=== PATIENT | male | born 1945 | race Caucasian/White ===

== ENCOUNTER 2016-09-21 20:49 | Inpatient (IN) ==
[2016-09-21] MEDS ORDERED: methylPREDNISolone SOD SUC 125 MG/2 ML VIAL IV STA (21:21)
[2016-09-21] MEDS ORDERED: ALBUTEROL/IPRATROPIUM 3 ML NEB RESP TX STA (21:21)
--- NOTE | 2016-09-21 21:33 | Emergency Department Note ---
IMilton Hilary, am scribing for, and in the presence of, Flor Moore DO 21: 24. IOscar Debra, DO, personally performed the services described in this documentation, ascribed by Zunilda Rose in my presence, and it is both accurate and complete . Arrival - Arrival Chief Complaint: Shortness of Breath Stated Complaint: having problems breathing for weeks/worsened ED Nursing Triage Note: Pt to triage via wheelchair with c/o sob on 4L 02 for 2 weeks. Mode of Arrival: Wheelchair Limitations: No Limitations Source: Patient, RN Notes Reviewed - History of Present Illness HPI Narrative: Pt is a 70 y/o male presenting to the ED with SOB which onset 2 weeks ago. Patients was in the room and states that he will get up from his chair and go to the bathroom, by the time he gets back he is gasping for breath. Patient confirms congestion in his head and High blood pressure this past week but denies Fever, chills, nausea or vomiting. He is on oxygen 02/01 for COPD [facility] No other complaints or problems stated in the ED. Pt has a PMHx of HTN, Aortic Valve DVT, IDDM, Dyslipidemia, and COPD. Onset (ago): week(s) Consistency: constant Allergies/Adverse Reactions: Allergies Allergy/AdvReac Type Severity Reaction Status Date / Time steroid AdvReac Hypertensio Uncoded 09/21/16 20:58 n Home Medications: Home Medications Medication Instructions Recorded Confirmed Type Atorvastatin Calcium [Lipitor] 40 mg PO DAILY 01/05/16 09/21/16 History Hydrocodone/Acetaminophen 1 each PO Q8H PRN 01/05/16 09/21/16 History [Hydrocodon-Acetaminophn 10-325] Hydroxychloroquine Sulfate 200 mg PO QOTHER DAY 01/05/16 09/21/16 History Magnesium Oxide 420 mg PO DAILY 01/05/16 09/21/16 History Methocarbamol Tab [Robaxin Tab] 750 mg PO QID 01/05/16 09/21/16 History Omeprazole [Prilosec] 20 mg PO BID W/MEALS 01/05/16 09/21/16 History Colchicine 0.5 tablet PO QOTHER DAY #0 01/08/16 09/21/16 Rx Allopurinol [Zyloprim] 150 mg PO DAILY #30 mg 02/06/16 09/21/16 Rx Aspirin [Ecotrin] 81 mg PO DAILY #100 tablet.dr 02/06/16 09/21/16 Rx Furosemide Tab [Lasix Tab] 40 mg PO DAILY W/BREAKFAST #30 02/06/16 09/21/16 Rx tablet Metoprolol Tartrate 25 mg PO BID #100 tablet 02/06/16 09/21/16 Rx NIFEdipine [Nifedipine ER] 60 mg PO DAILY #120 tablet.er 02/06/16 09/21/16 Rx Insulin Glargine [Lantus] 100 unit SUBCUT DAILY 09/21/16 09/21/16 History Pregabalin [Lyrica] 150 mg PO DAILY 09/21/16 09/21/16 History Sodium Bicarb Tab 325 mg PO BID 09/21/16 09/21/16 History Review of System - Review of System 12 point system: reviewed and no additional remarkable complaints except as stated - Review of System Constitutional: Absent: chills, fever Respiratory: Present: respiratory distress (SOB), other (Congestion) Cardiovascular: Present: chest pain, dyspnea on exertion Gastrointestinal: Absent: abdominal pain, nausea, vomiting, diarrhea Medical,Surgical,& Family Hx - Medical History Cardio: History of: Hypertension, Cardiovascular Problems (Aortic valve; DVT's) Endocrine: History of: Diabetes Mellitus (IDDM), Dyslipidemia Respiratory: History of: COPD (Home O2 at 2L) Musculoskeletal: History of: Back/Neck Problems - Surgical History HEENT Surgeries: Surgical HX of: Tonsilectomy & Adenoidectomy Orthopedic Surgeries: Surgical HX of;: Total Knee Replacement (BOTH) - Family History Family History: Reports;: Family Diabetes, Family Hypertension Denies;: Family Stroke Comment Only: Family Cancer (mother,colon. brother, prostate) - Social History Smoking Status: Former smoker Frequency of Alcohol Use: None Type of Drug Use: None Exam Vital Signs: Vital Signs Temperature 98.4 F 09/21/16 20:53 Pulse Rate 71 09/21/16 20:53 Respiratory Rate 16 09/21/16 20:53 Blood Pressure 181/109 09/21/16 20:53 O2 Sat by Pulse Oximetry 94 L 09/21/16 20:53 - General General appearance: alert, in no apparent distress - Head Head exam: Present: atraumatic, normocephalic - Eye Eye exam: Present: normal appearance, PERRL, EOMI - ENT ENT exam: Present: mucous membranes moist, TM's normal bilaterally. Absent: mucous membranes dry - Neck Neck exam: Present: full ROM, trachea midline. Absent: tenderness - Chest Chest inspection: Present: symmetric chest wall rise. Absent: tenderness - Respiratory Respiratory exam: Present: wheezes - Cardiovascular Cardiovascular exam: Present: regular rate, normal rhythm, normal heart sounds. Absent: murmur, rubs, gallop - Abdominal Exam Abdominal exam: Present: soft. Absent: distention, tenderness - Extremities Exam Extremities exam: Present: full ROM. Absent: tenderness - Back Exam Back exam: Present: full ROM. Absent: tenderness - Neurological Exam Neurological exam: Present: alert, oriented X3, CN II-XII intact. Absent: motor sensory deficit - Psychiatric Psychiatric exam: Present: normal affect, normal mood - Skin Skin exam: Present: warm, dry, intact, normal color. Absent: rash Course Course Narrative: spoke with DR Pate who agrees to admission Results - Labs CBC & BMP: 09/21/16 21:35 09/21/16 21:35 Lab Results: I have reviewed the patients labs Labs: Laboratory Tests 09/21/16 21:35 WBC 9.3 RBC 3.69 L Hgb 9.7 L Hct 30.2 L MCV 81.8 L MCH 26 L MPV 9.5 L Neut % (Auto) 78.8 H Lymph % (Auto) 10.0 L Lymph # (Auto) 0.9 L Laboratory Tests 09/21/16 09/21/16 21:35 21:35 Sodium 140 Potassium 4.2 Chloride 105 Carbon Dioxide 23 Anion Gap 16.2 H BUN 54 H Creatinine 3.50 H Glucose 160 H Calcium 8.0 L ALT 12 L Alkaline Phosphatase 149 H B-Natriuretic Peptide 408 H - Diagnostic Findings Procedure: Chest x-ray: image reviewed by me (increased congestion) Disposition Clinical Impression: Acute exacerbation of chronic obstructive airways disease, Renal failure Case discussed with: patient Disposition: Still a Patient Condition: Stable Time of Disposition: 23:04
[2016-09-21 21:45] LABS: Basophils # 0.1 10*3/uL (0.0-0.2); Basophils % 0.6 % (0.0-0.8); Eosinophils # 0.3 10*3/uL (0.0-0.87); Eosinophils % 3.3 % (0.00-10.9); Hematocrit 30.2 VOL% (42.0-52.0); Hemoglobin 9.7 GM/DL (14.0-18.0); Immature Granulocytes % 0.8 %; Immature Granulocytes Absolute 0.07 #; Lymphocytes # 0.9 10*3/uL (1.4-4.0); Mean Corpuscular HGB Conc 32.1 GM/DL (32-36); Mean Corpuscular Hemoglobin 26 PG (27-34); Mean Corpuscular Volume 81.8 FL (87-102); Mean Platelet Volume 9.5 FL (9.6-12.0); Monocytes # 0.6 10*3/uL (0.11-0.8); Monocytes % 6.5 % (1.7-12.7); Neutrophils # 7.3 10*3/uL (1.4-7.4); Neutrophils % 78.8 % (38.7-73.9); Platelet Count 176 T/CUMM (130-400); Red Blood Count 3.69 MC/CUMM (3.8-5.5); Red Cell Distribution Width 16.2 % (9.3-17.3); White Blood Count 9.3 T/CUMM (4-12)
[2016-09-21 21:56] LABS: Partial Thromboplastin Time 30.4 SECS (0-40)
[2016-09-21] MEDS ORDERED: methylPREDNISolone SOD SUC 125 MG/2 ML VIAL ONE (21:57)
[2016-09-21 22:18] LABS: Alanine Aminotransferase 12 U/L (16-61); Albumin 3.9 G/DL (3.4-5.0); Alkaline Phosphatase 149 U/L (45-117); Aspartate Amino Transferase 13 U/L (0-37); Blood Urea Nitrogen 54 MG/DL (7-18); Glucose 160 MG/DL (74-106); Osmolality,Calculated 296.4 MOS/KG (273-304); Potassium 4.2 MMOL/L (3.5-5.1); Sodium 140 MMOL/L (136-145); Total Protein 7.4 G/DL (6.4-8.3); Troponin I Only < 0.015 NG/ML (0.00-0.045)
[2016-09-21] MEDS ORDERED: ONDANSETRON 4 MG/2 ML VIAL IV STA (22:53)
[2016-09-21] MEDS ORDERED: HYDROmorphone 2 MG/1 ML VIAL IV STA (22:53)
[2016-09-21] MEDS ORDERED: ONDANSETRON 4 MG/2 ML VIAL ONE (22:56)
[2016-09-21] MEDS ORDERED: HYDROmorphone 2 MG/1 ML VIAL ONE (22:56)
--- NOTE | 2016-09-21 23:04 | XRay Report ---
XR chest 1V portable Indication: Shortness of breath and wheezing. Chest one view: Comparison 02/02/2016. Cardiomegaly is developed with increased pulmonary vascular congestion and diffuse reticulonodular opacification of the lungs. No focal pneumonia. Lung volumes remain relatively low. Impression: CHF decompensation. PROCEDURE INTERPRETED AT [facility] DEPARTMENT OF RADIOLOGY Final Report Signed by: Gelacio Hampton M.D.
[2016-09-22] MEDS ORDERED: GLUCAGON 1 MG VIAL IM PRN (00:26)
[2016-09-22] MEDS ORDERED: MAGNESIUM SULF RIDER 2 GM in PREMIX 1 EACH IV PRN (00:26)
[2016-09-22] MEDS ORDERED: MAGNESIUM SULF RIDER 4 GM in PREMIX 1 EACH IV PRN (00:26)
[2016-09-22] MEDS ORDERED: DEXTROSE 50% 25 GM/50 ML VIAL IV PRN (00:26)
--- NOTE | 2016-09-22 00:51 | Hospitalist History & Physical ---
Assessment and Plan (1) Elevated brain natriuretic peptide (BNP) level Status: Acute Current Visit: Yes (2) Acute exacerbation of chronic obstructive airways disease Status: Acute Current Visit: Yes (3) Renal failure Status: Acute Current Visit: Yes (4) Anemia Status: Acute Current Visit: No (5) Diabetes mellitus Status: Chronic Assessment and plan: Our plan for this patient 1. Admit patient to monitored bed 2. IV diuresis 3. Home meds appropriate 4. Schedule breathing treatments 5. Patient reports a allergy to steroids therefore no steroids will be given to him 6. Consult pulmonary to make sure that his lung status is optimized prior to discharge 7. 2D echo to evaluate heart function Current Visit: No Qualifiers: Diabetes mellitus type: type 2 Diabetes mellitus complication status: with hyperglycemia Diabetes mellitus snf insulin use: with snf use Qualified Code(s): E11.65 - Type 2 diabetes mellitus with hyperglycemia History of Present Illness Chief complaint: Shortness of breath dyspnea on exertion History of present illness: Mr. Acosta is a 70 year old male with past medical history significant for COPD , hypertension, diabetes and chronic kidney disease whose been having increasing dyspnea on exertion for months now. Patient reports is been steadily increasing over the past 2 weeks. Patient denies cough or fever. Patient reports that he has been wearing his O2 at home more. Patient felt like he could not breathe and called the [place] [facility]. Based recommended he come up to our hospital for further evaluation. Patient's reports that his O2 sats were in the 80s this morning and that this is been real disabling to him. He has not had his heart evaluated and he has not seen a traffic line painter except one time at the [facility] in [place]. I was consulted to admit the patient. Home Medications Medication Instructions Recorded Confirmed Type Atorvastatin Calcium [Lipitor] 40 mg PO DAILY 01/05/16 09/21/16 History Hydrocodone/Acetaminophen 1 each PO Q8H PRN 01/05/16 09/21/16 History [Hydrocodon-Acetaminophn 10-325] Hydroxychloroquine Sulfate 200 mg PO QOTHER DAY 01/05/16 09/21/16 History Magnesium Oxide 420 mg PO DAILY 01/05/16 09/21/16 History Methocarbamol Tab [Robaxin Tab] 750 mg PO QID 01/05/16 09/21/16 History Omeprazole [Prilosec] 20 mg PO BID W/MEALS 01/05/16 09/21/16 History Colchicine 0.5 tablet PO QOTHER DAY #0 01/08/16 09/21/16 Rx Allopurinol [Zyloprim] 150 mg PO DAILY #30 mg 02/06/16 09/21/16 Rx Aspirin [Ecotrin] 81 mg PO DAILY #100 tablet. 02/06/16 09/21/16 Rx Furosemide Tab [Lasix Tab] 40 mg PO DAILY W/BREAKFAST #30 02/06/16 09/21/16 Rx tablet Metoprolol Tartrate 25 mg PO BID #100 tablet 02/06/16 09/21/16 Rx NIFEdipine [Nifedipine ER] 60 mg PO DAILY #120 tablet.er 02/06/16 09/21/16 Rx Insulin Glargine [Lantus] 100 unit SUBCUT DAILY 09/21/16 09/21/16 History Pregabalin [Lyrica] 150 mg PO DAILY 09/21/16 09/21/16 History Sodium Bicarb Tab 325 mg PO BID 09/21/16 09/21/16 History Allergies Allergy/AdvReac Type Severity Reaction Status Date / Time steroid AdvReac Hypertensio Uncoded 09/21/16 20:58 n Medical,Surgical,& Family Hx - Medical History Cardio: History of: Hypertension, Cardiovascular Problems (Aortic valve; DVT's) Endocrine: History of: Diabetes Mellitus (IDDM), Dyslipidemia Respiratory: History of: COPD (Home O2 at 2L) Musculoskeletal: History of: Back/Neck Problems - Surgical History HEENT Surgeries: Surgical HX of: Tonsilectomy & Adenoidectomy Orthopedic Surgeries: Surgical HX of;: Total Knee Replacement (BOTH) - Family History Family History: Reports;: Family Diabetes, Family Hypertension Denies;: Family Stroke Comment Only: Family Cancer (mother,colon. brother, prostate) - Social History Smoking Status: Former smoker Frequency of Alcohol Use: None Type of Drug Use: None 12 point system: reviewed and no additional remarkable complaints except as stated Exam - Constitutional Vitals: - General General appearance: alert, in no apparent distress - Head Head exam: Present: atraumatic, normocephalic - Eye Eye exam: Present: normal appearance, PERRL, EOMI - ENT ENT exam: Present: mucous membranes moist, TM's normal bilaterally. Absent: mucous membranes dry - Neck Neck exam: Present: full ROM, trachea midline. - Chest Chest inspection: Present: symmetric chest wall rise. - Respiratory Respiratory exam: Present: wheezes - Cardiovascular Cardiovascular exam: Present: regular rate, normal rhythm, normal heart sounds. Absent: murmur, rubs, gallop - Abdominal Exam Abdominal exam: Present: soft. Absent: distention, tenderness - Extremities Exam Extremities exam: Present: full ROM. Absent: tenderness - Back Exam Back exam: Present: full ROM. Absent: tenderness - Neurological Exam Neurological exam: Present: alert, oriented X3, CN II-XII intact. Absent: motor sensory deficit - Psychiatric Psychiatric exam: Present: normal affect, normal mood - Skin Skin exam: Present: warm, dry, intact, normal color. Absent: rash Results - Labs CBC & BMP: 09/21/16 21:35 09/21/16 21:35
[2016-09-22 04:32] LABS: Basophils # 0.1 10*3/uL (0.0-0.2); Basophils % 0.5 % (0.0-0.8); Eosinophils # 0.4 10*3/uL (0.0-0.87); Eosinophils % 3.2 % (0.00-10.9); Hematocrit 28.1 VOL% (42.0-52.0); Immature Granulocytes % 1.3 %; Immature Granulocytes Absolute 0.14 #; Lymphocytes % 8.9 % (21.2-54.2); Mean Corpuscular Hemoglobin 26 PG (27-34); Monocytes # 0.9 10*3/uL (0.11-0.8); Neutrophils # 8.6 10*3/uL (1.4-7.4); Neutrophils % 78.1 % (38.7-73.9); Platelet Count 174 T/CUMM (130-400); Red Blood Count 3.47 MC/CUMM (3.8-5.5); Red Cell Distribution Width 16.2 % (9.3-17.3)
[2016-09-22 05:11] LABS: Osmolality,Calculated 291.5 MOS/KG (273-304); Potassium 4.5 MMOL/L (3.5-5.1)
[2016-09-22] MEDS: ALBUTEROL/IPRATROPIUM 3 ML NEB RESP TX SCH ×4 (05:28→21:06)
[2016-09-22] MEDS: INSULIN REGULAR 100 UNIT/ML SUBCUT SCH ×4 (08:40→21:16)
[2016-09-22] MEDS: FUROSEMIDE 40 MG/4 ML VIAL IV SCH ×2 (09:21→16:52)
[2016-09-22] MEDS: SODIUM BICARBONATE 650 MG TABLET PO SCH ×2 (09:22→21:17)
[2016-09-22] MEDS: PREGABALIN 75 MG CAPSULE PO SCH (09:22)
[2016-09-22] MEDS: ASPIRIN EC 81 MG TABLET PO SCH (09:22)
[2016-09-22] MEDS: ENOXAPARIN 30 MG/0.3 ML SYRINGE SUBCUT SCH (09:22)
[2016-09-22] MEDS: ALLOPURINOL 300 MG TABLET PO SCH (09:22)
[2016-09-22] MEDS: METHOCARBAMOL 750 MG TABLET PO SCH ×4 (09:23→21:17)
[2016-09-22] MEDS: HYDROXYCHLOROQUINE 200 MG TABLET PO SCH (09:23)
[2016-09-22] MEDS: COLCHICINE 0.6 MG TABLET PO SCH (09:23)
[2016-09-22] MEDS: MAGNESIUM OXIDE 400 MG TABLET PO SCH (09:24)
[2016-09-22] MEDS: METOPROLOL TARTRATE 25 MG TABLET PO SCH ×2 (09:24→21:16)
[2016-09-22] MEDS: ATORVASTATIN 40 MG TABLET PO SCH (09:24)
[2016-09-22] MEDS: PANTOPRAZOLE 40 MG TABLET PO SCH ×2 (09:24→16:52)
--- NOTE | 2016-09-22 10:28 | XRay Report ---
Referring Physician: Blair Brizuela Exam: XR chest 1V portable Date: September 22, 2016 at 10:04 AM Reason: Congestive heart failure Comparison: Chest one view portable September 21, 2016 Findings: The cardiac silhouette is again enlarged, and the patient status post sternotomy. There are scattered reticulonodular opacities within both lungs. This is concerning for pulmonary edema, but pneumonia is not excluded. No pneumothorax is identified. No acute osseous process is seen. Impression: There has been no significant change. PROCEDURE INTERPRETED AT [facility] DEPARTMENT OF RADIOLOGY Final Report Signed by: Dr. Malia Moreno
--- NOTE | 2016-09-22 11:57 | Pulmonology Consult Note ---
History of Present Illness Chief complaint: Acute exacerbation of COPD. Congestive heart failure. History of present illness: Santosh Courtney, ANP-BC, GNP-BC, acting as scribe for Dr. Blair Brizuela Mr. Acosta is a 70 year old white male who we've been asked to see in pulmonary consultation for evaluation and management. The request for consultation was made by Dr. Pate. He states he is followed at the [facility]. This patient presented to [facility] on 09/21/16 with complaints of shortness of breath. He was evaluated in the ER and found to have acute congestive heart failure and an acute exacerbation of COPD. He was subsequently admitted for further evaluation and care. He was seen along with his today. He states that he has had worsening shortness of breath for several months, but acutely worsened yesterday. She denies cardiac angina "except for when I can't breathe". He denies dysphagia. He has occasional reflux, but never into his throat. There has been no bleeding from any site. No change in bowel or bladder habits. No TIA symptoms or syncope. All other systems were reviewed and were negative. Allergies: "Steroids" Home medications: See list Past medical history: COPD. Diabetes mellitus with a history of DKA. Atrial fibrillation. History of PE. History of DVT. HTN. History of tobacco abuse. History of pulmonary edema. Dyslipidemia. Chronic renal failure. Back/neck pain. Gout. Surgical history: Aortic valve replacement in 2012. Left and right total knee replacements. Tonsillectomy and adenoidectomy. Family history: Positive for heart disease, HTN, diabetes mellitus, colon cancer (mother), and prostate cancer (brother) CXR. Done 09/21/16. My impression. Acute CHF. Laboratory: White count 11,000 with 78.1% segs, 8.9% lymphs, and 8.0% monos; H& H 9.0/28.1 with decreased indices and increased RDW; PLT count 174,000; creatinine 3.40, BUN 51, NA+ 139, K+ 4.5; Alk Phos 149, transaminases are normal ; cardiac enzymes are normal; BNP 451 Home Medications Medication Instructions Recorded Confirmed Type Atorvastatin Calcium [Lipitor] 40 mg PO DAILY 01/05/16 09/21/16 History Hydrocodone/Acetaminophen 1 each PO Q8H PRN 01/05/16 09/21/16 History [Hydrocodon-Acetaminophn 10-325] Hydroxychloroquine Sulfate 200 mg PO QOTHER DAY 01/05/16 09/21/16 History Magnesium Oxide 420 mg PO DAILY 01/05/16 09/21/16 History Methocarbamol Tab [Robaxin Tab] 750 mg PO QID 01/05/16 09/21/16 History Omeprazole [Prilosec] 20 mg PO BID W/MEALS 01/05/16 09/21/16 History Colchicine 0.5 tablet PO QOTHER DAY #0 01/08/16 09/21/16 Rx Allopurinol [Zyloprim] 150 mg PO DAILY #30 mg 02/06/16 09/21/16 Rx Aspirin [Ecotrin] 81 mg PO DAILY #100 tablet.dr 02/06/16 09/21/16 Rx Furosemide Tab [Lasix Tab] 40 mg PO DAILY W/BREAKFAST #30 02/06/16 09/21/16 Rx tablet Metoprolol Tartrate 25 mg PO BID #100 tablet 02/06/16 09/21/16 Rx NIFEdipine [Nifedipine ER] 60 mg PO DAILY #120 tablet.er 02/06/16 09/21/16 Rx Insulin Glargine [Lantus] 100 unit SUBCUT DAILY 09/21/16 09/21/16 History Pregabalin [Lyrica] 150 mg PO DAILY 09/21/16 09/21/16 History Sodium Bicarb Tab 325 mg PO BID 09/21/16 09/21/16 History Allergies Allergy/AdvReac Type Severity Reaction Status Date / Time steroid AdvReac Hypertensio Uncoded 09/21/16 20:58 n Exam (Pulmonay) H&P - Constitutional Vitals: Period Temp Pulse Resp BP Sys/Maloney Pulse Ox Last 24 Hr 97.3 F-97.6 F 67-77 18-22 149-186/72-92 88-96 Exam: Psych: Oriented x 3 HEENT: Pupils, irises, sclera, conjunctiva, and eyelids are normal. The face is symmetrical without rash or masses. Lips, tongue, buccal mucosa, soft and hard palates, and pharynx are WNL Neck: Symmetrical. Thyroid was not palpated. Lymphatics: No submandibular, cervical, or supraclavicular adenopathy Chest: Symmetrical with rales bilateral bases; no appreciable wheeze CV: Irregularly irregular; lateral PMI Arterial: Carotids with a fair upstroke. There is no bruit. Upper extremity pulses are palpable. Lower extremity pulses are non-palpable, but I see no evidence of ischemia Venous: Exam of the neck, upper, and lower extremities is normal Abd: Obese, but no organomegaly, masses, tenderness, or bruit; Bowel sounds are positive x 4; The aorta was not palpated /Rectal: Deferred Extremities: No clubbing, cyanosis, significant edema, or obvious DVT; bilateral JENNYFER hose are in use Skin: No cancerous or infectious lesions of the exposed, examined skin; the perineal area was not examined M/S: No gross abnormalities of the normal curvature of the cervical, thoracic, and lumbar spine Neurological: Cranial nerves are intact with mild decreased hearing acuity bilaterally, Long tract motor function is intact; Sensory exam was not done; gait was not tested. The remainder of the exam was noncontributory. Impression: #1: Acute congestive heart failure #2: Acute exacerbation of COPD #3: Chronic renal failure #4: History of aortic stenosis now S/P AVR; done 2012 #5: History of gout #6: History of DVT #7: History of PE #8: Dyslipidemia #9: History of back/neck pain #10: Diabetes mellitus with history of DKA #11: See past history Plan: #1: Agree with diuretics #2: Sputum for gram stain, culture and sensitivity. Note, the patient denies a productive cough. #3: Agree with echocardiogram #4: Daily BNP, BMP/Mg+ #5: CXR in the morning #6: See orders We appreciate this consult and will follow along with you. Medical,Surgical,& Family Hx - Medical History Cardio: History of: Hypertension, Cardiovascular Problems (Aortic valve; DVT's) Endocrine: History of: Diabetes Mellitus (IDDM), Dyslipidemia Respiratory: History of: COPD (Home O2 at 2L) Musculoskeletal: History of: Back/Neck Problems - Surgical History Neurologic Surgeries: Patient denies: Neurologic Surgery HEENT Surgeries: Surgical HX of: Tonsilectomy & Adenoidectomy Orthopedic Surgeries: Surgical HX of;: Total Knee Replacement (BOTH) - Family History Family History: Reports;: Family Diabetes, Family Hypertension Denies;: Family Stroke Comment Only: Family Cancer (mother,colon. brother, prostate) - Social History Smoking Status: Former smoker Frequency of Alcohol Use: None Type of Drug Use: None Results - Labs CBC & BMP: 09/22/16 04:03 09/22/16 04:03
--- NOTE | 2016-09-22 17:22 | ECHO Report ---
Gustabo Acosta Exam Date: 09/22/2016 10:30 Referring Physician: Technologist: Hollie Cabrera Age: 70 Ht (in): 72 Wt (lb): 276 Gender: M Exam Location: [facility] Echo Indications: SOB, COPD, Renal failure, elevated BNP BP: 149 / 72 HR: 69 Rhythm: Sinus Technical Quality: Fair IMPRESSIONS EF60 %,septal hypokinesis. Grade II/IV diastolic dysfunction, moderately elevated filling pressures. Mildly increased right ventricular size. Moderately increased right atrial size. Moderately increased left atrial size. Mildly thickened mitral valve. Mitral annular calcification. Trace mitral valve regurgitation. Aortic valve sclerosis. Trace aortic valve regurgitation. Severe tricuspid valve regurgitation. [id number] mmHg. Trace pulmonary valve regurgitation. No pericardial effusion. Normal size aortic root and proximal ascending aorta. MEASUREMENTS (Male / Female) Normal Values 2D ECHO LV Diastolic Diameter PLAX 4.2 cm 4.2 - 5.9 / 3.9 - 5.3 cm LV Systolic Diameter PLAX 2.3 cm LV Fractional Shortening PLAX 44.5 % IVS Diastolic Thickness 1.6 cm 0.6 - 1.0 / 0.6 - 0.9 cm LVPW Diastolic Thickness 1.2 cm 0.6 - 1.0 / 0.6 - 0.9 cm Aortic Root Diameter 2.5 cm LA Systolic Diameter LX 5.0 cm 3.0 - 4.0 / 2.7 - 3.8 cm DOPPLER TR Peak Velocity 436.0 cm/s TR Peak Gradient 76.0 mmHg FINDINGS Left Ventricle .EF60 %,septal hypokinesis. Grade II/IV diastolic dysfunction, moderately elevated filling pressures. Right Ventricle Mildly increased right ventricular size. Right Atrium Moderately increased right atrial size. Left Atrium Moderately increased left atrial size. Mitral Valve Mildly thickened mitral valve. Mitral annular calcification. Trace mitral valve regurgitation. Aortic Valve Aortic valve sclerosis. Trace aortic valve regurgitation. Tricuspid Valve Morphologically normal tricuspid valve. Severe tricuspid valve regurgitation. BQZ66-00 mmHg. Pulmonic Valve Pulmonic valve not well visualized. Trace pulmonary valve regurgitation. Pericardium No pericardial effusion. Aorta Normal size aortic root and proximal ascending aorta. Latrell Esparza (Electronically Signed) Final Date: 22 September 2016 17:21
[2016-09-23] MEDS: ALBUTEROL/IPRATROPIUM 3 ML NEB RESP TX SCH ×4 (02:03→19:10)
[2016-09-23 06:38] LABS: Basophils # 0.1 10*3/uL (0.0-0.2); Basophils % 0.6 % (0.0-0.8); Eosinophils # 0.3 10*3/uL (0.0-0.87); Eosinophils % 3.4 % (0.00-10.9); Hematocrit 27.9 VOL% (42.0-52.0); Hemoglobin 9.2 GM/DL (14.0-18.0); Immature Granulocytes % 0.6 %; Immature Granulocytes Absolute 0.05 #; Lymphocytes # 0.7 10*3/uL (1.4-4.0); Lymphocytes % 7.9 % (21.2-54.2); Mean Corpuscular Hemoglobin 26 PG (27-34); Mean Corpuscular Volume 80.2 FL (87-102); Mean Platelet Volume 9.4 FL (9.6-12.0); Monocytes # 0.7 10*3/uL (0.11-0.8); Monocytes % 7.5 % (1.7-12.7); Neutrophils # 7.2 10*3/uL (1.4-7.4); Platelet Count 171 T/CUMM (130-400); Red Blood Count 3.48 MC/CUMM (3.8-5.5); Red Cell Distribution Width 16.1 % (9.3-17.3)
[2016-09-23 07:16] LABS: Free T4 (Free Thyroxine) 0.79 NG/DL (0.76-1.46); Thyroid Stimulating Hormone 1.93 uIU/ml (0.358-3.74)
[2016-09-23 07:33] LABS: Calcium 8.2 MG/DL (8.5-10.1); Magnesium 1.8 MG/DL (1.8-2.4); Osmolality,Calculated 292.5 MOS/KG (273-304); Potassium 4.7 MMOL/L (3.5-5.1)
[2016-09-23] MEDS: MAGNESIUM OXIDE 400 MG TABLET PO SCH (08:31)
[2016-09-23] MEDS: METOPROLOL TARTRATE 25 MG TABLET PO SCH ×2 (08:31→21:15)
[2016-09-23] MEDS: METHOCARBAMOL 750 MG TABLET PO SCH ×4 (08:31→21:15)
[2016-09-23] MEDS: ASPIRIN EC 81 MG TABLET PO SCH (08:32)
[2016-09-23] MEDS: PREGABALIN 75 MG CAPSULE PO SCH (08:32)
[2016-09-23] MEDS: SODIUM BICARBONATE 650 MG TABLET PO SCH ×2 (08:32→21:15)
[2016-09-23] MEDS: PANTOPRAZOLE 40 MG TABLET PO SCH ×2 (08:32→15:31)
[2016-09-23] MEDS: ATORVASTATIN 40 MG TABLET PO SCH ×2 (08:32→21:15)
[2016-09-23] MEDS: ALLOPURINOL 300 MG TABLET PO SCH (08:33)
[2016-09-23] MEDS: FUROSEMIDE 40 MG/4 ML VIAL IV SCH ×2 (08:33→15:31)
[2016-09-23] MEDS: ENOXAPARIN 30 MG/0.3 ML SYRINGE SUBCUT SCH (08:33)
[2016-09-23] MEDS: INSULIN REGULAR 100 UNIT/ML SUBCUT SCH ×4 (09:20→21:16)
--- NOTE | 2016-09-23 10:53 | EKG Report ---
Stationary ECG Study [facility] Test Date: 09/23/2016 9:33:13 AM Pat Name: MALAIKA DRAKE Department: Room: 295 Gender: M Automatic [employer] Winder: : [id number] Requested by: Yolis Costello Order Number: [id number] Reading MD: KRISSY ZELAYA Intervals [place] Rate: 67 P: -7 MA: 231 QRS: -63 QRSD: 117 T: 64 QT: 450 QTc: 465 Interpretive Statements SINUS WITH PACS LEFT AXIS DEVIATION NONSPECIFIC INTERVENTRICULAR CONDUCTION DELAY Electronically Signed On 09-23-16 17:58:30 CDT by KRISSY ZELAYA [email or web address]
--- NOTE | 2016-09-23 11:10 | Pulmonology Progress Note ---
Pulmonary - PN: Subj Interval history: This is a 70-year-old white male whom I saw in pulmonary consultation on 2016. [facility]. He was admitted here with shortness of breath and chest pain. My impressions were #1: Acute congestive heart failure #2: Acute exacerbation of COPD #3: Chronic renal failure #4: History of aortic stenosis now S/P AVR; done 2012 #5: History of gout #6: History of DVT #7: History of PE #8: Dyslipidemia #9: History of back/neck pain #10: Diabetes mellitus with history of DKA #11: See past history 09/23/2016. This patient's chest x-ray showed acute congestive heart failure with increased interstitial markings in all 5 lung manzo and central vascular congestion. Today's chest x-ray is much better. Patient is not sure whether not he is breathing better but she is not a particularly forthcoming historian. He is however having some chest pain today. His EKG shows sinus rhythm with a second-degree AV block, Mobitz type II. There is a left anterior hemiblock. I see no acute changes. Cardiology will see him shortly. Electrolytes are normal. Creatinine is stable but elevated at 3.2 with a BUN of 48. Patient is chronically anemia with an H&H of 9.2/27.9. White count is 9000 with 80 segs 8 lymphs and 7-1/2 monocytes. Natruretic peptide is fallen from 408-291. Thyroid function tests are normal. Echocardiogram shows ejection fraction of 60 % with septal hypokinesis and grade 2/6 diastolic dysfunction and moderately elevated filling pressures. There is a trace of mitral regurgitation. There is a trace of aortic valve regurgitation. Note the patient had an aortic valve repair 2012. Pulmonary artery pressures are elevated 65-70 mmHg with severe tricuspid regurgitation. Right atrium is moderately increased in size and the right ventricle is mildly increased in size. This patient was not on anticoagulation admission. There was a history of pulmonary emboli. I am going to check Doppler venograms of the lower extremities. If there is any doubt about pulmonary emboli we should proceed with a ventilation perfusion lung scan. Patient has renal failure and cannot be evaluated with contrast patient is on nifedipine XL 60 which should help with his pulmonary hypertension. Physical exam. Vital signs. See below Psychiatric oriented 3 not a forthcoming historian. The family member was present. Neurologic. Cranial nerves are intact. Long track motor functions intact Face. Symmetrical. Lips and tongue are normal. Neck. Symmetrical. No meningismus Chest is fairly clear. There was mild chest wall tenderness but this did not reproduce to pain that the patient complained of Abdomen. Obese. Nondistended. Positive bowel sounds Lower extremities. No obvious deep venous thrombophlebitis. The remainder the exam was noncontributory. Plan: #1: Agree with diuretics #2: Sputum for gram stain, culture and sensitivity. Note, the patient denies a productive cough. #3: Agree with echocardiogram #4: Daily BNP, BMP/Mg+ #5: 09/23/2016. CXR in the morning #6: See orders 7. 09/23/2016. Doppler venograms of the lower extremities. Look for deep venous thrombophlebitis. Once out of congestive heart failure depending on the findings we may want to do a ventilation/perfusion lung scan. Exam (Progress Note) - Constitutional Vitals: Period Temp Pulse Resp BP Sys/Maloney Pulse Ox Last 24 Hr 96.8 F-97.8 F 65-75 16-20 115-173/63-81 2-99 Results - Labs CBC & BMP: 09/23/16 06:29 09/23/16 06:29
--- NOTE | 2016-09-23 12:41 | Cardiology Consult Note ---
Addendum entered and electronically signed by Eryn Zendejas NP 09/23/16 12: 53: Avoiding CANDY-Inhibitos for fear of worsening renal failure. Original Note: <Eryn Zendejas - Last Filed: 09/23/16 12:19> Assessment and Plan - Time spent with patient Time spent with patient: Greater than 30 minutes (1) CKD (chronic kidney disease) Status: Chronic Assessment and plan: SEE PLAN OF CARE LISTED BELOW Current Visit: Yes Qualifiers: Chronic kidney disease stage: stage 4 (severe) Qualified Code(s): N18.4 - Chronic kidney disease, stage 4 (severe) (2) Status post aortic valve replacement with bioprosthetic valve Status: Chronic Assessment and plan: SEE PLAN OF CARE LISTED BELOW Current Visit: Yes (3) Dyslipidemia Status: Chronic Assessment and plan: SEE PLAN OF CARE LISTED BELOW Current Visit: Yes (4) Diabetes Status: Chronic Assessment and plan: SEE PLAN OF CARE LISTED BELOW Current Visit: Yes (5) Sleep disorder Status: Chronic Assessment and plan: SEE PLAN OF CARE LISTED BELOW Current Visit: Yes (6) Obesity Status: Chronic Assessment and plan: SEE PLAN OF CARE LISTED BELOW Current Visit: Yes (7) Chronic obstructive pulmonary disease Status: Chronic Assessment and plan: SEE PLAN OF CARE LISTED BELOW Current Visit: No (8) Diabetes mellitus Status: Chronic Assessment and plan: SEE PLAN OF CARE LISTED BELOW Current Visit: No Qualifiers: Diabetes mellitus type: type 2 Diabetes mellitus complication status: with hyperglycemia Diabetes mellitus mcfp insulin use: with mcfp use Qualified Code(s): E11.65 - Type 2 diabetes mellitus with hyperglycemia (9) Hypertension Status: Chronic Assessment and plan: SEE PLAN OF CARE LISTED BELOW Current Visit: No (10) Anemia Status: Acute Current Visit: No (11) Renal insufficiency Status: Chronic Assessment and plan: SEE PLAN OF CARE LISTED BELOW Current Visit: No (12) Anemia Status: Chronic Assessment and plan: SEE PLAN OF CARE LISTED BELOW Current Visit: No History of Present Illness - Data of Consult Patient: known to practice within the last 3 years Consult date: 09/23/16 Requesting Physician: Gelacio Pate - Consult Narrative Reason for consult: SOB, CHF, chest pain History of present illness: CONTROL SYSTEMS DEVELOPER: DR. SARAY MARIE PCP: [facility]. DR. RADHA KRISHNAMURTHY Mr. Acosta is a 70 year old male followed by Dr. Marie. Risk factors include : Hypertension, dyslipidemia, diabetes, obesity, sedentary lifestyle, tobaccoism (stopped smoking 3 packs per day 1999). History of aortic valve replacement (tissue valve) [address] Magaña. At that time, he underwent cardiac catheterization which revealed no obstructive coronary artery disease. History atrial fibrillation (no longer taking Eliquis due to cost), known COPD, chronic renal insufficiency. Suspected sleep apnea. Patient presented to the emergency department September 22, 2016 with complaints of worsening shortness of breath over the past month. He identified room to room dyspnea on exertion causing rest. 2-3 pillow orthopnea, chronic. He acknowledges he had been swelling in his lower extremities at that time. He does not weigh himself daily at home. Since being hospitalized, his breathing has improved. He is no longer as short of breath with the exertion. He does have chronic orthopnea. He also has chronic chest wall pain. This morning, I was alerted to the patient having chest pain. Upon evaluation, his chest pain is located in the left chest wall area it is reproducible to light palpation. He does not have active chest pain with exertion. Troponin negative. EKG stable without acute ischemia. Echocardiogram September 23, 2016 reveals the following: EF 60%, septal hypokinesis , grade 2 diastolic dysfunction, severe TR with a pulmonary arterial pressure of 65-70 mmHg. Creatinine today 3.2 (down from 3.5). Hemoglobin 9.2 and hematocrit 27.9. These are stable. To his knowledge he has never had GI bleed or other occult blood loss. Patient does have chronic renal insufficiency. He does not see a apiculturist and we will assist with a consultation. In the past, he tells me his VA coverage did not allow for referrals to others outside the [facility] but now these benefits of change. He has never been formally seen by a apiculturist. We will also consult sleep medicine to see him Monday if he is still here. If not, we will refer him for an outpatient sleep evaluation. ASSESSMENT/PLAN: 1. ACUTE ON CHRONIC CHF SECONDARY TO DIASTOLIC DYSFUNCTION (EF 60%), NYHA CLASS III -strict I&O and daily weights. Currently receiving 40 mg IV Lasix twice daily. May consider increasing to 80 mg twice daily with close monitoring of his creatinine. 2. S/P AVR (TISSUE VALVE) 2012 -continue current plan of care 3. HYPERTENSION -tolerating beta blockade. May consider changing metoprolol to Bystolic and evaluate his shortness of breath. 4. DYSLIPIDEMIA -continue lipid-lowering agent 5. DIABETES -continue diabetes treatment with sliding scale insulin 6. CRI, STAGE IV -consult nephrology 7. OBESITY -discussed the merits of weight loss 8. SLEEP DISORDER -will consult sleep medicine if he is here on Monday. If not, will make an outpatient referral 9. ATRIAL FIBRILLATION - patient has a history of atrial fibrillation. He is anemic. He was on Eliquis in the past but quit taking due to cost. Will add sotalol 80 mg twice daily as he has had paroxysms of normal sinus rhythm. 10. ANEMIA -anemic studies 11. REMOTE TOBACCOISM -quit smoking in 1999. 12. COPD -appreciate pulmonary's help CC: Yolis Costello MD - Home Medications and Allergies Home Medications: Home Medications Medication Instructions Recorded Confirmed Type Atorvastatin Calcium [Lipitor] 40 mg PO DAILY 01/05/16 09/21/16 History Hydrocodone/Acetaminophen 1 each PO Q8H PRN 01/05/16 09/21/16 History [Hydrocodon-Acetaminophn 10-325] Hydroxychloroquine Sulfate 200 mg PO QOTHER DAY 01/05/16 09/21/16 History Magnesium Oxide 420 mg PO DAILY 01/05/16 09/21/16 History Methocarbamol Tab [Robaxin Tab] 750 mg PO QID 01/05/16 09/21/16 History Omeprazole [Prilosec] 20 mg PO BID W/MEALS 01/05/16 09/21/16 History Colchicine 0.5 tablet PO QOTHER DAY #0 01/08/16 09/21/16 Rx Allopurinol [Zyloprim] 150 mg PO DAILY #30 mg 02/06/16 09/21/16 Rx Aspirin [Ecotrin] 81 mg PO DAILY #100 tablet. 02/06/16 09/21/16 Rx Furosemide Tab [Lasix Tab] 40 mg PO DAILY W/BREAKFAST #30 02/06/16 09/21/16 Rx tablet Metoprolol Tartrate 25 mg PO BID #100 tablet 02/06/16 09/21/16 Rx NIFEdipine [Nifedipine ER] 60 mg PO DAILY #120 tablet.er 02/06/16 09/21/16 Rx Insulin Glargine [Lantus] 100 unit SUBCUT DAILY 09/21/16 09/21/16 History Pregabalin [Lyrica] 150 mg PO DAILY 09/21/16 09/21/16 History Sodium Bicarb Tab 325 mg PO BID 09/21/16 09/21/16 History Allergies/Adverse Reactions: Allergies Allergy/AdvReac Type Severity Reaction Status Date / Time steroid AdvReac Hypertensio Uncoded 09/21/16 20:58 n 12 point system: reviewed and no additional remarkable complaints except as stated Review of systems: REVIEW OF SYSTEMS: - Constitutional Constitutional: Present: Fatigue. Snoring loudly. Holding his breath while sleeping. Air hunger. Absent: syncope, anorexia, night sweats - EENT Eyes: Absent: blurry vision, loss of vision, diplopia Ears: Absent: decreased hearing, ear pain, ear discharge - Cardiovascular Cardiovascular: Present: chest pain with palpation to left chest. Dyspnea on exertion and at rest. Orthopnea. Denies palpitations. Frequent lower extremity swelling. - Respiratory Respiratory: Present: HALE and at rest. Absent: wheezing, hemoptysis, change in phlegm color - Gastrointestinal Gastrointestinal: Denies: constipation. Absent: abdominal pain, hematemesis, hematochezia, melena, change in bowel habits, nausea - Genitourinary Genitourinary: Reports he still makes a lot of urine absent: difficulty urinating, dysuria, urinary hesitancy, flank pain - Musculoskeletal Musculoskeletal: Present: back pain Absent: joint swelling, muscle cramps, muscle weakness - Neurological Neurological: Present: normal gait without frequent falls. Absent: dizziness, hemiparesis - Psychiatric Psychiatric: Absent: anxiety, depression, difficulty concentrating - Endocrine Endocrine: Present: fatigue. Absent: cold intolerance, heat intolerance, polyuria, polyphagia, polydipsia - Hematologic/Lymphatic Hematologic/Lymphatic: Present: easy bruising. Absent: easy bleeding -Integumentary Integumentary: Absent: lesions, rashes, skin breakdown Medical,Surgical,& Family Hx - Medical History Cardio: History of: Cardiac Dysrhythmia, Hypertension, Cardiovascular Problems ( Aortic valve; DVT's) No history of: CAD, MD Endocrine: History of: Diabetes Mellitus (IDDM), Dyslipidemia Respiratory: History of: COPD (Home O2 at 2L) Musculoskeletal: History of: Back/Neck Problems - Surgical History Neurologic Surgeries: Patient denies: Neurologic Surgery HEENT Surgeries: Surgical HX of: Tonsilectomy & Adenoidectomy Orthopedic Surgeries: Surgical HX of;: Total Knee Replacement (BOTH) - Family History Family History: Reports;: Family Diabetes, Family Hypertension Denies;: Family Stroke Comment Only: Family Cancer (mother,colon. brother, prostate) - Social History Smoking Status: Former smoker Have you smoked in the last 12 months: No Frequency of Alcohol Use: None Type of Drug Use: None Marital Status: Lives With:: Spouse Functional capacity: independent ambulation Physical Examination Vital Signs Temp Pulse Resp BP Pulse Ox 98.4 F 71 16 181/109 94 L 09/21/16 20:53 09/21/16 20:53 09/21/16 20:53 09/21/16 20:53 09/21/16 20:53 General: [Appears well with no apparent distress.] [Pleasant and cooperative. ] [Appears comfortable.] HEENT: [PERRL, normocephalic, atraumatic. Mucous membranes moist. No jaundice noted. Conjunctiva moist and clear, sclerae anicteric] Malampati Airway Class II-III. Neck: Difficult to assess for JVD due to habitus. No thyromegaly or lymphadenopathy noted. No carotid bruit appreciated Cardiac: [Regular rate and rhythm.] [No obvious murmur rub or gallop.] Lungs: [Inspiratory crackles noted posteriorly in the bases. Oxygen in use via nasal cannula Abdomen: Soft, bowel sounds normoactive. Nontender and nondistended. No abdominal bruit or thrill noted. No masses noted. Musculoskeletal: No fluid collection. Decreased range of motion is noted. Extremities: No clubbing, cyanosis noted. [ No edema noted.] Upper extremity pulses 2+. Lower extremity pulses 2+. Capillary refill less than 3 seconds. Skin: No unusual lesions or rashes. No skin breakdown appreciated. Neuro: Awake, alert and oriented 3. Moves all extremities well without hemiparesis or paralysis. No essential tremor is appreciated. Result/EKG - Labs CBC & BMP: 09/23/16 06:29 09/23/16 06:29 Lab Results: I have reviewed the past 24 hour labs Labs: Laboratory Results - last 24 hr 09/22/16 09/22/16 09/23/16 15:53 19:44 06:29 WBC RBC Hgb Hct MCV MCH MCHC RDW Plt Count MPV Neut % (Auto) Lymph % (Auto) Hernando % (Auto) Eos % (Auto) Baso % (Auto) Neut # (Auto) Lymph # (Auto) Hernando # (Auto) Eos # (Auto) Baso # (Auto) Immature Gran % Nucleated RBC % Immature Gran # Nucleated RBCs # Sodium 139 Potassium 4.7 Chloride 104 Carbon Dioxide 25 Anion Gap 14.7 BUN 48 H Creatinine 3.20 H GFR Calculation 27 BUN/Creatinine Ratio 15.00 Glucose 149 H POC Glucose 158 H 199 H Hemoglobin A1c Calculated Osmolality 292.5 Calcium 8.2 L Magnesium 1.8 B-Natriuretic Peptide Free T4 TSH 3rd Generation 09/23/16 09/23/16 09/23/16 06:29 06:29 06:29 WBC 9.0 RBC 3.48 L Hgb 9.2 L Hct 27.9 L MCV 80.2 L MCH 26 L MCHC 33.0 RDW 16.1 Plt Count 171 MPV 9.4 L Neut % (Auto) 80.0 H Lymph % (Auto) 7.9 L Hernando % (Auto) 7.5 Eos % (Auto) 3.4 Baso % (Auto) 0.6 Neut # (Auto) 7.2 Lymph # (Auto) 0.7 L Hernando # (Auto) 0.7 Eos # (Auto) 0.3 Baso # (Auto) 0.1 Immature Gran % 0.6 Nucleated RBC % 0.0 Immature Gran # 0.05 Nucleated RBCs # 0.00 Sodium Potassium Chloride Carbon Dioxide Anion Gap BUN Creatinine GFR Calculation BUN/Creatinine Ratio Glucose POC Glucose Hemoglobin A1c Calculated Osmolality Calcium Magnesium B-Natriuretic Peptide 291 H Free T4 0.79 TSH 3rd Generation 1.930 09/23/16 09/23/16 09/23/16 06:29 07:53 11:41 WBC RBC Hgb Hct MCV MCH MCHC RDW Plt Count MPV Neut % (Auto) Lymph % (Auto) Hernando % (Auto) Eos % (Auto) Baso % (Auto) Neut # (Auto) Lymph # (Auto) Hernando # (Auto) Eos # (Auto) Baso # (Auto) Immature Gran % Nucleated RBC % Immature Gran # Nucleated RBCs # Sodium Potassium Chloride Carbon Dioxide Anion Gap BUN Creatinine GFR Calculation BUN/Creatinine Ratio Glucose POC Glucose 167 H 200 H Hemoglobin A1c 7.9 H Calculated Osmolality Calcium Magnesium B-Natriuretic Peptide Free T4 TSH 3rd Generation - Diagnostic Findings Procedure: Chest x-ray: report reviewed by me, Ultrasound: report reviewed by me (Echocardiogram) - EKG EKG results: interpreted by me EKG shows: sinus rhythm (With paroxysms of atrial fibrillar) <Tony Esparza - Last Filed: 09/23/16 15:29> History of Present Illness - Consult Narrative History of present illness: Cardiology addendum Patient examined and chart reviewed. nurse Kathrine present for the full discussion Chronic dyspnea and easy fatigability for years which has gotten progressively worse over the last 6 months. Patient is followed at the [place]. He is on home O2 for the past year. 6 feet tall approximately 280 pounds. He snores a lot and has restless legs and daytime sleepiness. Sleep apnea strongly suspected. Patient has chronic renal failure. Creatinine 3.5 at admission September 21. Longtime diabetic with poor control. Currently taking Lantus insulin 100 units at bedtime. Hemoglobin A1c level 7.9. Status post bioprosthetic aortic valve replacement for aortic stenosis by Dr. Magaña March 2013. Cardiac cath at the time showed mild CAD only and preserved ventricular function. Chronic hypertension Paroxysmal atrial fibrillation. The patient has been on Coumadin in the past but it was stopped at the [facility] because of noncompliance and difficulty keeping the PT therapeutic. Patient is back in atrial fibrillation. Chest x-ray shows automated with CHF. BNP level 296. Plan IV amiodarone Echo Doppler pending Renal consult with Dr. Spaulding We will consult Dr. Ca for sleep study evaluation. CC: Yolis Costello MD Physical Examination Vital Signs Temp Pulse Resp BP Pulse Ox 98.4 F 71 16 181/109 94 L 09/21/16 20:53 09/21/16 20:53 09/21/16 20:53 09/21/16 20:53 09/21/16 20:53 Result/EKG - Labs CBC & BMP: 09/23/16 13:13 09/23/16 06:29 Labs: Laboratory Results - last 24 hr 09/22/16 09/22/16 09/23/16 15:53 19:44 06:29 WBC RBC Hgb Hct MCV MCH MCHC RDW Plt Count MPV Neut % (Auto) Lymph % (Auto) Hernando % (Auto) Eos % (Auto) Baso % (Auto) Neut # (Auto) Lymph # (Auto) Hernando # (Auto) Eos # (Auto) Baso # (Auto) Immature Gran % Nucleated RBC % Immature Gran # Nucleated RBCs # ESR Westergren Absolute Retic Percent Retic Retic Hgb Equivalent Sodium 139 Potassium 4.7 Chloride 104 Carbon Dioxide 25 Anion Gap 14.7 BUN 48 H Creatinine 3.20 H GFR Calculation 27 BUN/Creatinine Ratio 15.00 Glucose 149 H POC Glucose 158 H 199 H Hemoglobin A1c Calculated Osmolality 292.5 Calcium 8.2 L Magnesium 1.8 Ferritin B-Natriuretic Peptide Vitamin B12 Folate Free T4 TSH 3rd Generation JOSE MANUEL (IgG-AHG) JOSE MANUEL, Polyspecific 09/23/16 09/23/16 09/23/16 06:29 06:29 06:29 WBC 9.0 RBC 3.48 L Hgb 9.2 L Hct 27.9 L MCV 80.2 L MCH 26 L MCHC 33.0 RDW 16.1 Plt Count 171 MPV 9.4 L Neut % (Auto) 80.0 H Lymph % (Auto) 7.9 L Hernando % (Auto) 7.5 Eos % (Auto) 3.4 Baso % (Auto) 0.6 Neut # (Auto) 7.2 Lymph # (Auto) 0.7 L Hernando # (Auto) 0.7 Eos # (Auto) 0.3 Baso # (Auto) 0.1 Immature Gran % 0.6 Nucleated RBC % 0.0 Immature Gran # 0.05 Nucleated RBCs # 0.00 ESR Westergren Absolute Retic Percent Retic Retic Hgb Equivalent Sodium Potassium Chloride Carbon Dioxide Anion Gap BUN Creatinine GFR Calculation BUN/Creatinine Ratio Glucose POC Glucose Hemoglobin A1c Calculated Osmolality Calcium Magnesium Ferritin B-Natriuretic Peptide 291 H Vitamin B12 Folate Free T4 0.79 TSH 3rd Generation 1.930 JOSE MANUEL (IgG-AHG) JOSE MANUEL, Polyspecific 09/23/16 09/23/16 09/23/16 06:29 07:53 11:41 WBC RBC Hgb Hct MCV MCH MCHC RDW Plt Count MPV Neut % (Auto) Lymph % (Auto) Hernando % (Auto) Eos % (Auto) Baso % (Auto) Neut # (Auto) Lymph # (Auto) Hernando # (Auto) Eos # (Auto) Baso # (Auto) Immature Gran % Nucleated RBC % Immature Gran # Nucleated RBCs # ESR Westergren Absolute Retic Percent Retic Retic Hgb Equivalent Sodium Potassium Chloride Carbon Dioxide Anion Gap BUN Creatinine GFR Calculation BUN/Creatinine Ratio Glucose POC Glucose 167 H 200 H Hemoglobin A1c 7.9 H Calculated Osmolality Calcium Magnesium Ferritin B-Natriuretic Peptide Vitamin B12 Folate Free T4 TSH 3rd Generation JOSE MANUEL (IgG-AHG) JOSE MANUEL, Polyspecific 09/23/16 09/23/16 09/23/16 13:13 13:13 13:13 WBC 10.1 RBC 3.61 L Hgb 9.5 L Hct 30.4 L MCV 84.2 L MCH 26 L MCHC 31.3 L RDW 16.0 Plt Count 193 MPV 10.0 Neut % (Auto) 80.4 H Lymph % (Auto) 7.7 L Hernando % (Auto) 7.1 Eos % (Auto) 3.4 Baso % (Auto) 0.7 Neut # (Auto) 8.1 H Lymph # (Auto) 0.8 L Hernando # (Auto) 0.7 Eos # (Auto) 0.3 Baso # (Auto) 0.1 Immature Gran % 0.7 Nucleated RBC % 0.0 Immature Gran # 0.07 Nucleated RBCs # 0.00 ESR Westergren 96 H Absolute Retic 0.1 Percent Retic 3.0 H Retic Hgb Equivalent 25.9 L Sodium Potassium Chloride Carbon Dioxide Anion Gap BUN Creatinine GFR Calculation BUN/Creatinine Ratio Glucose POC Glucose Hemoglobin A1c Calculated Osmolality Calcium Magnesium Ferritin 272.4 B-Natriuretic Peptide Vitamin B12 383 Folate 6.3 Free T4 TSH 3rd Generation JOSE MANUEL (IgG-AHG) JOSE MANUEL, Polyspecific 09/23/16 13:13 WBC RBC Hgb Hct MCV MCH MCHC RDW Plt Count MPV Neut % (Auto) Lymph % (Auto) Hernando % (Auto) Eos % (Auto) Baso % (Auto) Neut # (Auto) Lymph # (Auto) Hernando # (Auto) Eos # (Auto) Baso # (Auto) Immature Gran % Nucleated RBC % Immature Gran # Nucleated RBCs # ESR Westergren Absolute Retic Percent Retic Retic Hgb Equivalent Sodium Potassium Chloride Carbon Dioxide Anion Gap BUN Creatinine GFR Calculation BUN/Creatinine Ratio Glucose POC Glucose Hemoglobin A1c Calculated Osmolality Calcium Magnesium Ferritin B-Natriuretic Peptide Vitamin B12 Folate Free T4 TSH 3rd Generation JOSE MANUEL (IgG-AHG) Negative JOSE MANUEL, Polyspecific Negative
[2016-09-23] MEDS ORDERED: SOTALOL 80 MG TABLET PO SCH (13:00)
[2016-09-23 13:38] LABS: Basophils # 0.1 10*3/uL (0.0-0.2); Basophils % 0.7 % (0.0-0.8); Eosinophils # 0.3 10*3/uL (0.0-0.87); Eosinophils % 3.4 % (0.00-10.9); Hematocrit 30.4 VOL% (42.0-52.0); Hemoglobin 9.5 GM/DL (14.0-18.0); Immature Granulocytes % 0.7 %; Immature Granulocytes Absolute 0.07 #; Lymphocytes # 0.8 10*3/uL (1.4-4.0); Lymphocytes % 7.7 % (21.2-54.2); Mean Corpuscular HGB Conc 31.3 GM/DL (32-36); Mean Corpuscular Hemoglobin 26 PG (27-34); Mean Corpuscular Volume 84.2 FL (87-102); Monocytes # 0.7 10*3/uL (0.11-0.8); Monocytes % 7.1 % (1.7-12.7); Neutrophils # 8.1 10*3/uL (1.4-7.4); Neutrophils % 80.4 % (38.7-73.9); Platelet Count 193 T/CUMM (130-400); Red Blood Count 3.61 MC/CUMM (3.8-5.5); White Blood Count 10.1 T/CUMM (4-12)
--- NOTE | 2016-09-23 13:56 | Hospitalist Progress Note ---
Assessment and Plan (1) Chronic obstructive pulmonary disease Status: Chronic Current Visit: No (2) Diabetes mellitus Status: Chronic Current Visit: No Qualifiers: Diabetes mellitus type: type 2 Diabetes mellitus complication status: with hyperglycemia Diabetes mellitus adjunct faculty for medical terminology insulin use: with senior care use Qualified Code(s): E11.65 - Type 2 diabetes mellitus with hyperglycemia (3) Hypertension Status: Chronic Current Visit: No (4) CKD (chronic kidney disease) Status: Chronic Current Visit: Yes Qualifiers: Chronic kidney disease stage: stage 4 (severe) Qualified Code(s): N18.4 - Chronic kidney disease, stage 4 (severe) Hospitalist: Subjective Interval history: Patient with reported episode of chest pain as well as second degree heart block overnight, cardiology was consulted. Lasix increased. Pulmonary following for COPD exacerbation. Patient has a history of CKD, nephrology has been consulted. Starting basal insulin today. Exam - Constitutional Vitals: Period Temp Pulse Resp BP Sys/Maloney Pulse Ox Last 24 Hr 96.8 F-97.8 F 65-84 16-20 115-143/63-81 2-99 General appearance: over weight - Head Head exam: Present: normocephalic, atraumatic - Eye Eye exam: Present: EOMI Pupils: Present: TAMIA - ENT ENT exam: Present: normal exam - Neck Neck exam: Present: normal inspection - Respiratory Respiratory exam: Present: clear to auscultation bilaterally. Absent: rhonchi, wheezes - Cardiovascular Cardiovascular exam: Present: regular rate and rhythm - GI/Abdominal GI/Abdominal exam: Present: normal bowel sounds, soft. Absent: tenderness, rebound - Extremities Exam Extremities exam: Present: normal inspection - Back Exam Back exam: Present: normal inspection - Neurological Exam Neurological exam: Present: alert, oriented X3 - Psychiatric Psychiatric exam: Present: normal affect, normal mood - Skin Skin exam: Present: warm, intact Results - Labs CBC & BMP: 09/23/16 13:13 09/23/16 06:29
[2016-09-23 14:17] LABS: Folate 6.3 NG/ML (5.4-24.0); Vitamin B12 383 PG/ML (211-911)
[2016-09-23 14:38] LABS: Sedimentation Rate-Westergren 96 MM/HR (0-20)
--- NOTE | 2016-09-23 14:39 | Ultrasound Report ---
Exam: Bilateral lower extremity venous Doppler ultrasound Comparison: 05/15/2014 Clinical history: Shortness of breath, leg swelling Technique: Duplex scan of the lower extremity veins using B-mode/grayscale scaled imaging and Doppler spectral analysis and color flow. Findings: Major venous structures of the lower extremities demonstrate a normal course and caliber. Normal color-flow study and spectral analysis. There is normal compression and augmentation of bilateral common femoral, superficial femoral and popliteal veins. The proximal bilateral greater saphenous veins appear to be patent. Impression: No evidence to suggest deep venous thrombosis within either lower extremity. Ultrasound images were captured and stored. PROCEDURE INTERPRETED AT [facility] DEPARTMENT OF RADIOLOGY Final Report Signed by: Dr. Brittany Vincent
--- NOTE | 2016-09-23 14:39 | Ultrasound Report ---
US renal Bilateral Indication: Chronic kidney disease. RENAL ULTRASOUND: Comparison 01/07/2016. Grayscale and color Doppler imaging the kidneys performed. Right kidney measures 100 x 45 x 43 mm. Left kidney measures 100 x 52 x 50 mm. No hydronephrosis, mass, cyst or calcification identified on either side. Color Doppler flow at both renal radu documented. Impression: Negative ultrasound the kidneys. PROCEDURE INTERPRETED AT [facility] DEPARTMENT OF RADIOLOGY Final Report Signed by: Gelacio Hampton M.D.
[2016-09-23] MEDS: INSULIN NPH 100 UNIT/ML SUBCUT SCH ×2 (14:44→21:16)
--- NOTE | 2016-09-23 14:46 | XRay Report ---
XR chest 1V portable Indication: CHF. Chest one view: Comparison 09/22/2016 shows continued reticular nodular interstitial prominence in both lungs diffusely, pulmonary hypoinflation, cardiomegaly and postoperative changes median sternotomy. No new infiltrates are identified. Right lung base is slightly better aerated than previous. Impression: Minimally improved aeration right lung base. Continued CHF. PROCEDURE INTERPRETED AT [facility] DEPARTMENT OF RADIOLOGY Final Report Signed by: Gelacio Hampton M.D.
[2016-09-23] MEDS ORDERED: AMIODARONE INJ 150 MG in DEXTROSE 5% 100 ML IV ONE (15:13)
[2016-09-23] MEDS ORDERED: AMIODARONE INJ 450 MG in DEXTROSE 5% 241 ML IV SCH (16:00)
--- NOTE | 2016-09-23 16:16 | Nephrology Consult Note ---
History of Present Illness Chief complaint: CRF History of present illness: Patient does have chronic renal insufficiency. He does not see a construction craft laborer and we will assist with a consultation. In the past, he tells me his [facility] coverage did not allow for referrals to others outside the [facility] but now these benefits of change. He has never been formally seen by a construction craft laborer. We will also consult sleep medicine to see him Monday if he is still here. If not, we will refer him for an outpatient sleep evaluation. Mr. Acosta is a 70 year old male admitted with shortness of breath. He currently denies orthopnea but states he mainly has shortness of breath with exertion. He is being treated for CHF and COPD exacerbation. He has pulmonary hypertension and diabetes. He has chronic renal failure. He has been followed by the [facility]. He currently denies dysuria hematuria or obstructive symptoms. Home Medications Medication Instructions Recorded Confirmed Type Atorvastatin Calcium [Lipitor] 40 mg PO DAILY 01/05/16 09/21/16 History Hydrocodone/Acetaminophen 1 each PO Q8H PRN 01/05/16 09/21/16 History [Hydrocodon-Acetaminophn 10-325] Hydroxychloroquine Sulfate 200 mg PO QOTHER DAY 01/05/16 09/21/16 History Magnesium Oxide 420 mg PO DAILY 01/05/16 09/21/16 History Methocarbamol Tab [Robaxin Tab] 750 mg PO QID 01/05/16 09/21/16 History Omeprazole [Prilosec] 20 mg PO BID W/MEALS 01/05/16 09/21/16 History Colchicine 0.5 tablet PO QOTHER DAY #0 01/08/16 09/21/16 Rx Allopurinol [Zyloprim] 150 mg PO DAILY #30 mg 02/06/16 09/21/16 Rx Aspirin [Ecotrin] 81 mg PO DAILY #100 tablet. 02/06/16 09/21/16 Rx Furosemide Tab [Lasix Tab] 40 mg PO DAILY W/BREAKFAST #30 02/06/16 09/21/16 Rx tablet Metoprolol Tartrate 25 mg PO BID #100 tablet 02/06/16 09/21/16 Rx NIFEdipine [Nifedipine ER] 60 mg PO DAILY #120 tablet.er 02/06/16 09/21/16 Rx Insulin Glargine [Lantus] 100 unit SUBCUT DAILY 09/21/16 09/21/16 History Pregabalin [Lyrica] 150 mg PO DAILY 09/21/16 09/21/16 History Sodium Bicarb Tab 325 mg PO BID 09/21/16 09/21/16 History Allergies Allergy/AdvReac Type Severity Reaction Status Date / Time steroid AdvReac Hypertensio Uncoded 09/21/16 20:58 n Medical,Surgical,& Family Hx - Medical History Cardio: History of: Cardiac Dysrhythmia, Hypertension, Cardiovascular Problems ( Aortic valve; DVT's) No history of: CAD, MS Endocrine: History of: Diabetes Mellitus (IDDM), Dyslipidemia Respiratory: History of: COPD (Home O2 at 2L) Musculoskeletal: History of: Back/Neck Problems - Surgical History Neurologic Surgeries: Patient denies: Neurologic Surgery HEENT Surgeries: Surgical HX of: Tonsilectomy & Adenoidectomy Orthopedic Surgeries: Surgical HX of;: Total Knee Replacement (BOTH) - Family History Family History: Reports;: Family Diabetes, Family Hypertension Denies;: Family Stroke Comment Only: Family Cancer (mother,colon. brother, prostate) - Social History Smoking Status: Former smoker Frequency of Alcohol Use: None Type of Drug Use: None Review of Systems 12 point system: reviewed and no additional remarkable complaints except as stated Exam - Vital Signs Vital signs: Period Temp Pulse Resp BP Sys/Maloney Pulse Ox Last 24 Hr 97.2 F-97.8 F 65-84 16-20 114-143/60-81 90-99 Exam: Gen.: Alert and oriented x3. ENT: Pupils equal round reactive to light. EOMs intact. Mucous membranes moist. Neck: Supple. No JVD or bruit. Cardiovascular: Regular rate and rhythm. No murmur rub or gallop Lungs: Clear Abdomen: Soft. Nontender. Positive bowel sounds. No organomegaly Extremities: No edema Results - Labs CBC & BMP: 09/23/16 13:13 09/23/16 06:29 Assessment and Plan (1) Chronic kidney disease, stage IV (severe) Status: Acute Assessment and plan: 70-year-old man admitted with: * CRF stage IV. Records indicate he has been followed at the [facility] but has not seen nephrology. Creatinine has been between 3 and 4 over the past year. Renal ultrasound shows no anatomic abnormalities. UA is pending. He is on no nephrotoxic medications currently. Renal function should be monitored on IV diuretics * Diastolic CHF. Normal ejection fraction * Pulmonary hypertension * Prosthetic aortic valve * Diabetes mellitus * COPD * Hypertension * Anemia Current Visit: Yes (2) Diastolic CHF Status: Acute Current Visit: Yes (3) Acute exacerbation of chronic obstructive airways disease Status: Acute Current Visit: Yes (4) Status post aortic valve replacement with bioprosthetic valve Status: Chronic Current Visit: Yes (5) Anemia Status: Chronic Current Visit: No (6) Chronic obstructive pulmonary disease Status: Chronic Current Visit: No (7) Diabetes mellitus Status: Chronic Current Visit: No Qualifiers: Diabetes mellitus type: type 2 Diabetes mellitus complication status: with hyperglycemia Diabetes mellitus correction insulin use: with correction use Qualified Code(s): E11.65 - Type 2 diabetes mellitus with hyperglycemia (8) Hypertension Status: Chronic Current Visit: No
[2016-09-23 18:14] LABS: Apearance,Urine CLEAR (Clear); Bilirubin,Urine Negative (Negative); Blood, Urine Small mg/dL (Negative); Glucose,Urine (UA) Negative (Negative); Hyaline Casts,Urine 1 /LPF (0-3); Ketones,Urine Negative (Negative); Mucus,Urine Occasional /LPF (Occasional); Nitrite,Urine Negative (Negative); Protein,Urine 100 MG/DL; RBC,Urine 1 /HPF (0-4); Urine Color Yellow (Yellow); Urine Specific Gravity 1.012 (1.001-1.035); Urine Urobilinogen < 2.0 EU/DL (0.2-1.0); WBC,Urine <1 /HPF (0-6)
[2016-09-24] MEDS: AMIODARONE INJ 450 MG in DEXTROSE 5% 241 ML IV SCH ×3 (00:18→17:20)
[2016-09-24] MEDS: ALBUTEROL/IPRATROPIUM 3 ML NEB RESP TX SCH ×5 (00:24→23:59)
[2016-09-24 04:43] LABS: Basophils # 0.1 10*3/uL (0.0-0.2); Basophils % 0.6 % (0.0-0.8); Eosinophils # 0.4 10*3/uL (0.0-0.87); Eosinophils % 4.3 % (0.00-10.9); Hematocrit 28.3 VOL% (42.0-52.0); Hemoglobin 9.2 GM/DL (14.0-18.0); Immature Granulocytes % 0.5 %; Immature Granulocytes Absolute 0.05 #; Lymphocytes # 0.9 10*3/uL (1.4-4.0); Lymphocytes % 9.2 % (21.2-54.2); Mean Corpuscular HGB Conc 32.5 GM/DL (32-36); Mean Corpuscular Hemoglobin 26 PG (27-34); Mean Corpuscular Volume 79.7 FL (87-102); Mean Platelet Volume 9.6 FL (9.6-12.0); Monocytes # 0.7 10*3/uL (0.11-0.8); Monocytes % 7.5 % (1.7-12.7); Neutrophils # 7.6 10*3/uL (1.4-7.4); Neutrophils % 77.9 % (38.7-73.9); Platelet Count 178 T/CUMM (130-400); Red Blood Count 3.55 MC/CUMM (3.8-5.5); White Blood Count 9.8 T/CUMM (4-12)
[2016-09-24 05:11] LABS: Potassium 4.7 MMOL/L (3.5-5.1)
[2016-09-24] MEDS: INSULIN REGULAR 100 UNIT/ML SUBCUT SCH ×4 (09:00→21:23)
[2016-09-24] MEDS: FUROSEMIDE 40 MG/4 ML VIAL IV SCH ×2 (09:00→17:15)
[2016-09-24] MEDS: INSULIN NPH 100 UNIT/ML SUBCUT SCH ×2 (09:01→21:23)
[2016-09-24] MEDS: ALLOPURINOL 300 MG TABLET PO SCH (09:04)
[2016-09-24] MEDS: COLCHICINE 0.6 MG TABLET PO SCH (09:05)
[2016-09-24] MEDS: SODIUM BICARBONATE 650 MG TABLET PO SCH ×2 (09:05→21:22)
[2016-09-24] MEDS: MAGNESIUM OXIDE 400 MG TABLET PO SCH (09:06)
[2016-09-24] MEDS: ASPIRIN EC 81 MG TABLET PO SCH (09:06)
[2016-09-24] MEDS: PREGABALIN 75 MG CAPSULE PO SCH (09:06)
[2016-09-24] MEDS: METHOCARBAMOL 750 MG TABLET PO SCH ×4 (09:06→21:22)
[2016-09-24] MEDS: HYDROXYCHLOROQUINE 200 MG TABLET PO SCH (09:06)
[2016-09-24] MEDS: ENOXAPARIN 30 MG/0.3 ML SYRINGE SUBCUT SCH (09:07)
[2016-09-24] MEDS: PANTOPRAZOLE 40 MG TABLET PO SCH ×2 (09:07→17:20)
[2016-09-24] MEDS: METOPROLOL TARTRATE 25 MG TABLET PO SCH ×2 (09:07→21:23)
--- NOTE | 2016-09-24 09:07 | XRay Report ---
XR chest 2V Date: 09/24/2016 4:00 AM History: CHF/shortness of breath Comparison: 09/23/2016 Technique: PA and lateral chest Findings: The heart is minimally enlarged with prior median sternotomy and cardiac valve replacement. The lungs are hyperexpanded with chronic scarring. Additional diffuse parenchymal findings are noted with ill-defined densities. Stable mediastinum with degenerative changes. Impression: Status post median sternotomy with cardiac valve replacement. COPD with chronic scarring. Residual mild CHF with ill-defined indeterminate densities and follow-up chest x-ray is recommended. PROCEDURE INTERPRETED AT [facility] DEPARTMENT OF RADIOLOGY Final Report Signed by: Dr. Brittany Vnicent
--- NOTE | 2016-09-24 09:07 | EKG Report ---
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
--- NOTE | 2016-09-24 11:26 | Cardiology Progress Note ---
Cardiology - PN: Subj Interval history: Cardiology note 70-year-old man with progressive exertional dyspnea and easy fatigability. Also had recurrent atrial fibrillation that converted chemically with IV amiodarone. Telemetry shows sinus rhythm in the 70s. O2 sat is 95% on 3 L. Regular rhythm soft systolic murmur as before. No AI. Decreased breath sounds few rhonchi in the right base Trace leg edema Echo Doppler shows ejection fraction of 60% with grade 2 diastolic dysfunction, moderate dilated left atrium, dilated right ventricle, normally functioning aortic valve prosthesis with no AI, and severe TR PA pressure 65-70 Impression Progressive dyspnea multifactorial Chronic hypertension Paroxysmal atrial fibrillation CHF Status post bioprosthetic aVR March 2013. Cath at that time showed mild CAD Chronic renal failure creatinine 3.5 Obstructive sleep apnea suspected Obesity Plan Continue IV amiodarone BMP in a.m. Appreciate Dr. Spaulding's help Dr. Ca to see Monday Exam (Progress Note) - Constitutional Vitals: Period Temp Pulse Resp BP Sys/Maloney Pulse Ox Last 24 Hr 96.1 F-98.1 F 59-84 18-25 106-165/41-76 90-99 Result/EKG - Labs CBC & BMP: 09/24/16 04:19 09/24/16 04:19 Labs: Laboratory Results - last 24 hr 09/23/16 09/23/16 09/23/16 11:41 13:13 13:13 WBC 10.1 RBC 3.61 L Hgb 9.5 L Hct 30.4 L MCV 84.2 L MCH 26 L MCHC 31.3 L RDW 16.0 Plt Count 193 MPV 10.0 Neut % (Auto) 80.4 H Lymph % (Auto) 7.7 L [place] % (Auto) 7.1 Eos % (Auto) 3.4 Baso % (Auto) 0.7 Neut # (Auto) 8.1 H Lymph # (Auto) 0.8 L [place] # (Auto) 0.7 Eos # (Auto) 0.3 Baso # (Auto) 0.1 Immature Gran % 0.7 Nucleated RBC % 0.0 Immature Gran # 0.07 Nucleated RBCs # 0.00 ESR Westergren 96 H Absolute Retic 0.1 Percent Retic 3.0 H Retic Hgb Equivalent 25.9 L Sodium Potassium Chloride Carbon Dioxide Anion Gap BUN Creatinine GFR Calculation BUN/Creatinine Ratio Glucose POC Glucose 200 H Calculated Osmolality Calcium Magnesium Ferritin 272.4 B-Natriuretic Peptide Vitamin B12 Folate Urine Color Urine Appearance Urine pH Ur Specific [place] Urine Protein Urine Glucose (UA) Urine Ketones Urine Blood Urine Nitrate Urine Bilirubin Urine Urobilinogen Urine Leukocytes Urine RBC Urine WBC Hyaline Casts Urine Mucus Ur Culture Indicated? JOSE MANUEL (IgG-AHG) JOSE MANUEL, Polyspecific 09/23/16 09/23/16 09/23/16 13:13 13:13 14:56 WBC RBC Hgb Hct MCV MCH MCHC RDW Plt Count MPV Neut % (Auto) Lymph % (Auto) [place] % (Auto) Eos % (Auto) Baso % (Auto) Neut # (Auto) Lymph # (Auto) [place] # (Auto) Eos # (Auto) Baso # (Auto) Immature Gran % Nucleated RBC % Immature Gran # Nucleated RBCs # ESR [place]gren Absolute Retic Percent Retic Retic Hgb Equivalent Sodium Potassium Chloride Carbon Dioxide Anion Gap BUN Creatinine GFR Calculation BUN/Creatinine Ratio Glucose POC Glucose Calculated Osmolality Calcium Magnesium Ferritin B-Natriuretic Peptide Vitamin B12 383 Folate 6.3 Urine Color Yellow Urine Appearance Clear Urine pH 5.0 Ur Specific [place] 1.012 Urine Protein 100 Urine Glucose (UA) Negative Urine Ketones Negative Urine Blood Small Urine Nitrate Negative Urine Bilirubin Negative Urine Urobilinogen < 2.0 H Urine Leukocytes Negative Urine RBC 1 Urine WBC <1 Hyaline Casts 1 Urine Mucus Occasional Ur Culture Indicated? Not indicated JOSE MANUEL (IgG-AHG) Negative JOSE MANUEL, Polyspecific Negative 09/23/16 09/23/16 09/24/16 15:29 18:26 04:18 WBC RBC Hgb Hct MCV MCH MCHC RDW Plt Count MPV Neut % (Auto) Lymph % (Auto) [place] % (Auto) Eos % (Auto) Baso % (Auto) Neut # (Auto) Lymph # (Auto) [place] # (Auto) Eos # (Auto) Baso # (Auto) Immature Gran % Nucleated RBC % Immature Gran # Nucleated RBCs # ESR [place]gren Absolute Retic Percent Retic Retic Hgb Equivalent Sodium Potassium Chloride Carbon Dioxide Anion Gap BUN Creatinine GFR Calculation BUN/Creatinine Ratio Glucose POC Glucose 184 H 176 H Calculated Osmolality Calcium Magnesium Ferritin B-Natriuretic Peptide 266 H Vitamin B12 Folate Urine Color Urine Appearance Urine pH Ur Specific [place] Urine Protein Urine Glucose (UA) Urine Ketones Urine Blood Urine Nitrate Urine Bilirubin Urine Urobilinogen Urine Leukocytes Urine RBC Urine WBC Hyaline Casts Urine Mucus Ur Culture Indicated? JOSE MANUEL (IgG-AHG) JOSE MANUEL, Polyspecific 09/24/16 09/24/16 04:19 04:19 WBC 9.8 RBC 3.55 L Hgb 9.2 L Hct 28.3 L MCV 79.7 L MCH 26 L MCHC 32.5 RDW 16.0 Plt Count 178 MPV 9.6 Neut % (Auto) 77.9 H Lymph % (Auto) 9.2 L [place] % (Auto) 7.5 Eos % (Auto) 4.3 Baso % (Auto) 0.6 Neut # (Auto) 7.6 H Lymph # (Auto) 0.9 L [place] # (Auto) 0.7 Eos # (Auto) 0.4 Baso # (Auto) 0.1 Immature Gran % 0.5 Nucleated RBC % 0.0 Immature Gran # 0.05 Nucleated RBCs # 0.00 ESR Westergren Absolute Retic Percent Retic Retic Hgb Equivalent Sodium 136 Potassium 4.7 Chloride 101 Carbon Dioxide 26 Anion Gap 13.7 BUN 56 H Creatinine 3.70 H GFR Calculation 22 BUN/Creatinine Ratio 15.00 Glucose 158 H POC Glucose Calculated Osmolality 290.0 Calcium 8.0 L Magnesium 2.0 Ferritin B-Natriuretic Peptide Vitamin B12 Folate Urine Color Urine Appearance Urine pH Ur Specific [place] Urine Protein Urine Glucose (UA) Urine Ketones Urine Blood Urine Nitrate Urine Bilirubin Urine Urobilinogen Urine Leukocytes Urine RBC Urine WBC Hyaline Casts Urine Mucus Ur Culture Indicated? JOSE MANUEL (IgG-AHG) JOSE MANUEL, Polyspecific
--- NOTE | 2016-09-24 12:45 | Hospitalist Progress Note ---
Assessment and Plan - Time spent with patient Time spent with patient: Less than 30 minutes (1) Chronic obstructive pulmonary disease Status: Chronic Current Visit: No (2) MEGAN (acute kidney injury) Status: Resolved Current Visit: No (3) Hypertension Status: Chronic Current Visit: No (4) Acute exacerbation of chronic obstructive airways disease Status: Acute Current Visit: Yes (5) Chronic kidney disease, stage IV (severe) Status: Acute Current Visit: Yes Hospitalist: Subjective Interval history: pt seen doing well remains on amio infusion appreciate cards input otherwise no issues overnight Exam - Constitutional Vitals: Period Temp Pulse Resp BP Sys/Maloney Pulse Ox Last 24 Hr 96.1 F-98.1 F 59-80 18-25 106-165/41-73 90-99 General appearance: no acute distress, over weight - Head Head exam: Present: normal inspection, normocephalic - Eye Eye exam: Present: EOMI Pupils: Present: TAMIA - ENT ENT exam: Present: normal exam - Neck Neck exam: Present: normal inspection - Respiratory Respiratory exam: Present: clear to auscultation bilaterally - Cardiovascular Cardiovascular exam: Present: regular rate and rhythm. Absent: irregular rhythm , JVD - GI/Abdominal GI/Abdominal exam: Present: normal bowel sounds - Extremities Exam Extremities exam: Present: normal inspection - Back Exam Back exam: Present: normal inspection. Absent: CVA tenderness (L), CVA tenderness (R) - Neurological Exam Neurological exam: Present: alert, oriented X3 - Psychiatric Psychiatric exam: Present: normal affect, normal mood - Skin Skin exam: Present: normal color Results - Labs CBC & BMP: 09/24/16 04:19 09/24/16 04:19 Lab Results: I have reviewed the past 24 hour labs
--- NOTE | 2016-09-24 14:47 | Nephrology Progress Note ---
Nephrology - PN: Subj Interval history: Shortness of breath has improved since yesterday. No new symptoms Exam (PN)-Nephrology - Vital Signs Vital signs: Period Temp Pulse Resp BP Sys/Maloney Pulse Ox Last 24 Hr 96.1 F-98.1 F 59-80 18-25 106-165/41-81 90-99 Exam: ENT: Normal Cardiovascular: Regular rate and rhythm. No murmur rub or gallop Lungs: Clear Extremities: No edema - Lab 09/24/16 04:19 09/24/16 04:19 Most recent lab results Calcium 8.0 MG/DL (8.5-10.1) L 09/24/16 04:19 Magnesium 2.0 MG/DL (1.8-2.4) 09/24/16 04:19 Assessment and Plan (1) Chronic kidney disease, stage IV (severe) Status: Acute Assessment and plan: 70-year-old man admitted with: * CRF stage IV. Creatinine slightly higher. This is due to diuresis * Diastolic CHF. Normal ejection fraction * Pulmonary hypertension * Prosthetic aortic valve * Diabetes mellitus * COPD * Hypertension * Anemia Current Visit: Yes (2) Diastolic CHF Status: Acute Current Visit: Yes (3) Acute exacerbation of chronic obstructive airways disease Status: Acute Current Visit: Yes (4) Status post aortic valve replacement with bioprosthetic valve Status: Chronic Current Visit: Yes (5) Anemia Status: Chronic Current Visit: No (6) Chronic obstructive pulmonary disease Status: Chronic Current Visit: No (7) Diabetes mellitus Status: Chronic Current Visit: No Qualifiers: Diabetes mellitus type: type 2 Diabetes mellitus complication status: with hyperglycemia Diabetes mellitus [facility] insulin use: with [facility] use Qualified Code(s): E11.65 - Type 2 diabetes mellitus with hyperglycemia (8) Hypertension Status: Chronic Current Visit: No
[2016-09-24] MEDS: ATORVASTATIN 40 MG TABLET PO SCH (21:22)
[2016-09-24] MEDS: AMIODARONE 200 MG TABLET PO SCH (21:23)
[2016-09-25 05:43] LABS: Basophils # 0.1 10*3/uL (0.0-0.2); Basophils % 0.7 % (0.0-0.8); Eosinophils # 0.5 10*3/uL (0.0-0.87); Hematocrit 28.8 VOL% (42.0-52.0); Hemoglobin 9.3 GM/DL (14.0-18.0); Immature Granulocytes % 0.6 %; Immature Granulocytes Absolute 0.06 #; Lymphocytes % 10.5 % (21.2-54.2); Mean Corpuscular HGB Conc 32.3 GM/DL (32-36); Mean Corpuscular Hemoglobin 26 PG (27-34); Mean Platelet Volume 10.1 FL (9.6-12.0); Monocytes # 0.8 10*3/uL (0.11-0.8); Monocytes % 8.3 % (1.7-12.7); Neutrophils # 7.4 10*3/uL (1.4-7.4); Neutrophils % 74.9 % (38.7-73.9); Platelet Count 184 T/CUMM (130-400); Red Cell Distribution Width 15.9 % (9.3-17.3); White Blood Count 9.9 T/CUMM (4-12)
[2016-09-25 06:09] LABS: Calcium 8.5 MG/DL (8.5-10.1); Magnesium 2.1 MG/DL (1.8-2.4); Osmolality,Calculated 287.2 MOS/KG (273-304); Potassium 4.8 MMOL/L (3.5-5.1)
[2016-09-25] MEDS: ALBUTEROL/IPRATROPIUM 3 ML NEB RESP TX SCH ×3 (07:03→19:49)
[2016-09-25] MEDS: INSULIN NPH 100 UNIT/ML SUBCUT SCH ×2 (08:47→21:22)
[2016-09-25] MEDS: ENOXAPARIN 30 MG/0.3 ML SYRINGE SUBCUT SCH (08:48)
[2016-09-25] MEDS: FUROSEMIDE 40 MG/4 ML VIAL IV SCH (08:48)
[2016-09-25] MEDS: SODIUM BICARBONATE 650 MG TABLET PO SCH ×2 (08:48→21:25)
[2016-09-25] MEDS: ALLOPURINOL 300 MG TABLET PO SCH (08:48)
[2016-09-25] MEDS: METHOCARBAMOL 750 MG TABLET PO SCH ×4 (08:48→21:25)
[2016-09-25] MEDS: PREGABALIN 75 MG CAPSULE PO SCH (08:49)
[2016-09-25] MEDS: ASPIRIN EC 81 MG TABLET PO SCH (08:49)
[2016-09-25] MEDS: METOPROLOL TARTRATE 25 MG TABLET PO SCH ×2 (08:49→21:25)
[2016-09-25] MEDS: MAGNESIUM OXIDE 400 MG TABLET PO SCH (08:49)
[2016-09-25] MEDS: AMIODARONE 200 MG TABLET PO SCH ×2 (08:49→21:25)
[2016-09-25] MEDS: PANTOPRAZOLE 40 MG TABLET PO SCH ×2 (08:49→17:55)
[2016-09-25] MEDS: INSULIN REGULAR 100 UNIT/ML SUBCUT SCH ×4 (08:50→21:22)
--- NOTE | 2016-09-25 09:24 | EKG Report ---
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
--- NOTE | 2016-09-25 09:39 | XRay Report ---
XR chest 2V Date: 09/25/2016 4:00 AM History: CHF, shortness of breath Comparison: 09/24/2016 Technique: PA and lateral chest Findings: The heart is mildly smaller in size with prior median sternotomy and cardiac valve replacement. Minimal reduction in the diffuse parenchymal findings in the lungs. Stable mediastinum and osseous structures. Impression: Status post median sternotomy and cardiac valve replacement. COPD with chronic scarring. Very minimally improved mild CHF. Persistent ill-defined densities and continued follow-up chest x-ray is recommended. PROCEDURE INTERPRETED AT [facility] DEPARTMENT OF RADIOLOGY Final Report Signed by: Dr. Brittany Vincent
[2016-09-25] MEDS: AMIODARONE INJ 450 MG in DEXTROSE 5% 241 ML IV SCH ×2 (09:41→21:20)
--- NOTE | 2016-09-25 12:07 | Hospitalist Progress Note ---
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 Complains of indigestion and difficulty sleeping overnight. Down 3kg from yesterday. Amiodarone switched to po yesterday evening. Exam - Constitutional Vitals: Period Temp Pulse Resp BP Sys/Maloney Pulse Ox Last 24 Hr 97.8 F-98.6 F 61-87 16-25 119-148/57-72 66-99 General appearance: over weight - Head Head exam: Present: normocephalic, atraumatic - Eye Eye exam: Present: EOMI Pupils: Present: TAMIA - ENT ENT exam: Present: normal exam - Neck Neck exam: Present: lymphadenopathy - Respiratory Respiratory exam: Present: clear to auscultation bilaterally. Absent: wheezes - Cardiovascular Cardiovascular exam: Present: regular rate and rhythm - GI/Abdominal GI/Abdominal exam: Present: normal bowel sounds, soft. Absent: tenderness, rebound - Extremities Exam Extremities exam: Present: normal inspection - Back Exam Back exam: Present: normal inspection - Neurological Exam Neurological exam: Present: alert, oriented X3 - Psychiatric Psychiatric exam: Present: normal affect, normal mood - Skin Skin exam: Present: warm, intact Results - Labs CBC & BMP: 09/25/16 05:30 09/25/16 05:30
--- NOTE | 2016-09-25 12:37 | Cardiology Progress Note ---
Cardiology - PN: Subj Interval history: Cardiology note 70-year-old man with progressive dyspnea renal failure and recurrent atrial fibrillation. Converted chemically to sinus rhythm with IV amiodarone. Telemetry shows sinus rhythm in the 70s Blood pressure 126/74 O2 sat 96 on 4 L cannula Regular rhythm soft systolic murmur as before no AI Decreased breath sounds with basilar rhonchi Abdomen soft benign Lab data today White count 9.9 hemoglobin 9.3 hematocrit 28.8 Sodium 134 potassium 4.8 chloride 100 CO2 24 BUN 61 creatinine 3.90 Glucose 154 Impression Progressive dyspnea multifactorial Hypertension Paroxysmal atrial fibrillation Status post bioprosthetic aVR [address] Magaña. At that time patient had only mild CAD by cath Obstructive sleep apnea with cor pulmonale suspected. Echo showed ejection fraction of 60% with grade 2 diastolic dysfunction, moderate dilated left atrium, aortic valve sclerosis, dilated right-sided chambers and severe TR, PA pressure 65-70 Obesity Chronic renal failure baseline creatinine 3.5 Plan Amiodarone [address] Ca to evaluate tomorrow for sleep apnea BMP in a.m. O2 as needed to keep sat above 90 Exam (Progress Note) - Constitutional Vitals: Period Temp Pulse Resp BP Sys/Maloney Pulse Ox Last 24 Hr 97.8 F-98.6 F 61-87 16-25 119-148/57-72 66-99 Result/EKG - Labs CBC & BMP: 09/25/16 05:30 09/25/16 05:30 Labs: Laboratory Results - last 24 hr 09/24/16 09/24/16 09/24/16 07:40 12:25 16:45 WBC RBC Hgb Hct MCV MCH MCHC RDW Plt Count MPV Neut % (Auto) Lymph % (Auto) [place] % (Auto) Eos % (Auto) Baso % (Auto) Neut # (Auto) Lymph # (Auto) [place] # (Auto) Eos # (Auto) Baso # (Auto) Immature Gran % Nucleated RBC % Immature Gran # Nucleated RBCs # Sodium Potassium Chloride Carbon Dioxide Anion Gap BUN Creatinine GFR Calculation BUN/Creatinine Ratio Glucose POC Glucose 169 H 161 H 181 H Calculated Osmolality Calcium Magnesium B-Natriuretic Peptide 09/24/16 09/25/16 09/25/16 19:44 05:30 05:30 WBC 9.9 RBC 3.60 L Hgb 9.3 L Hct 28.8 L MCV 80.0 L MCH 26 L MCHC 32.3 RDW 15.9 Plt Count 184 MPV 10.1 Neut % (Auto) 74.9 H Lymph % (Auto) 10.5 L [place] % (Auto) 8.3 Eos % (Auto) 5.0 Baso % (Auto) 0.7 Neut # (Auto) 7.4 Lymph # (Auto) 1.0 L [place] # (Auto) 0.8 Eos # (Auto) 0.5 Baso # (Auto) 0.1 Immature Gran % 0.6 Nucleated RBC % 0.0 Immature Gran # 0.06 Nucleated RBCs # 0.00 Sodium 134 L Potassium 4.8 Chloride 100 Carbon Dioxide 24 Anion Gap 14.8 BUN 61 H Creatinine 3.90 H GFR Calculation 21 BUN/Creatinine Ratio 15.00 Glucose 154 H POC Glucose 228 H Calculated Osmolality 287.2 Calcium 8.5 Magnesium 2.1 B-Natriuretic Peptide 09/25/16 09/25/16 05:30 08:03 WBC RBC Hgb Hct MCV MCH MCHC RDW Plt Count MPV Neut % (Auto) Lymph % (Auto) [place] % (Auto) Eos % (Auto) Baso % (Auto) Neut # (Auto) Lymph # (Auto) [place] # (Auto) Eos # (Auto) Baso # (Auto) Immature Gran % Nucleated RBC % Immature Gran # Nucleated RBCs # Sodium Potassium Chloride Carbon Dioxide Anion Gap BUN Creatinine GFR Calculation BUN/Creatinine Ratio Glucose POC Glucose 177 H Calculated Osmolality Calcium Magnesium B-Natriuretic Peptide 321 H
--- NOTE | 2016-09-25 14:01 | Nephrology Progress Note ---
Nephrology - PN: Subj Interval history: Shortness breath has improved. He denies orthopnea Exam (PN)-Nephrology - Vital Signs Vital signs: Period Temp Pulse Resp BP Sys/Maloney Pulse Ox Last 24 Hr 97.7 F-98.6 F 62-87 16-25 119-148/57-72 66-99 Exam: ENT: Normal Cardiovascular: Regular rate and rhythm. No murmur rub or gallop Lungs: Clear Extremities: No edema - Lab 09/25/16 05:30 09/25/16 05:30 Most recent lab results Calcium 8.5 MG/DL (8.5-10.1) 09/25/16 05:30 Magnesium 2.1 MG/DL (1.8-2.4) 09/25/16 05:30 Assessment and Plan (1) Chronic kidney disease, stage IV (severe) Status: Acute Assessment and plan: 70-year-old man admitted with: * CRF stage IV. Creatinine slightly higher. Diuretic changed to by mouth * Diastolic CHF. Normal ejection fraction * Pulmonary hypertension * Prosthetic aortic valve * Diabetes mellitus * COPD. No wheezing today * Hypertension * Anemia Current Visit: Yes (2) Diastolic CHF Status: Acute Current Visit: Yes (3) Acute exacerbation of chronic obstructive airways disease Status: Acute Current Visit: Yes (4) Status post aortic valve replacement with bioprosthetic valve Status: Chronic Current Visit: Yes (5) Anemia Status: Chronic Current Visit: No (6) Chronic obstructive pulmonary disease Status: Chronic Current Visit: No (7) Diabetes mellitus Status: Chronic Current Visit: No Qualifiers: Diabetes mellitus type: type 2 Diabetes mellitus complication status: with hyperglycemia Diabetes mellitus senior living insulin use: with senior living use Qualified Code(s): E11.65 - Type 2 diabetes mellitus with hyperglycemia (8) Hypertension Status: Chronic Current Visit: No
[2016-09-25] MEDS: FUROSEMIDE 80 MG TABLET PO SCH (17:54)
[2016-09-25] MEDS: ZALEPLON 5 MG CAPSULE PO PRN (21:25)
[2016-09-25] MEDS: ATORVASTATIN 40 MG TABLET PO SCH (21:25)
[2016-09-26] MEDS: ALBUTEROL/IPRATROPIUM 3 ML NEB RESP TX SCH ×4 (00:32→19:21)
[2016-09-26 05:30] LABS: Basophils # 0.1 10*3/uL (0.0-0.2); Basophils % 0.7 % (0.0-0.8); Eosinophils # 0.5 10*3/uL (0.0-0.87); Eosinophils % 4.5 % (0.00-10.9); Hemoglobin 8.7 GM/DL (14.0-18.0); Immature Granulocytes % 0.6 %; Immature Granulocytes Absolute 0.06 #; Lymphocytes # 0.9 10*3/uL (1.4-4.0); Lymphocytes % 9.1 % (21.2-54.2); Mean Corpuscular HGB Conc 32.2 GM/DL (32-36); Mean Corpuscular Hemoglobin 26 PG (27-34); Mean Corpuscular Volume 80.6 FL (87-102); Mean Platelet Volume 9.8 FL (9.6-12.0); Monocytes # 0.8 10*3/uL (0.11-0.8); Neutrophils # 7.8 10*3/uL (1.4-7.4); Neutrophils % 77.1 % (38.7-73.9); Platelet Count 198 T/CUMM (130-400); Red Blood Count 3.35 MC/CUMM (3.8-5.5); Red Cell Distribution Width 15.7 % (9.3-17.3); White Blood Count 10.1 T/CUMM (4-12)
[2016-09-26 05:59] LABS: Calcium 8.2 MG/DL (8.5-10.1); Magnesium 2.2 MG/DL (1.8-2.4); Osmolality,Calculated 291.1 MOS/KG (273-304); Potassium 4.6 MMOL/L (3.5-5.1)
[2016-09-26 06:01] LABS: Calcium 8.1 MG/DL (8.5-10.1); Osmolality,Calculated 290.2 MOS/KG (273-304); Potassium 4.7 MMOL/L (3.5-5.1)
--- NOTE | 2016-09-26 07:23 | XRay Report ---
XR chest 2V Indication: Congestive heart failure, shortness of breath Comparison: 25 September 2016 Findings: The heart and mediastinum are stable in size and configuration with cardiac surgery changes. The pulmonary vascularity is increased with bilateral increased interstitial lung density. No other lung infiltrates, effusions, pneumothorax or other abnormality is demonstrated. Impression: Findings suggest slight increase and cardiac decompensation. PROCEDURE INTERPRETED AT [facility] DEPARTMENT OF RADIOLOGY Final Report Signed by: Dr. Ron Maddox
--- NOTE | 2016-09-26 07:43 | EKG Report ---
Stationary ECG Study [facility] Test Date: 09/26/2016 7:43:14 AM Pat Name: MALAIKA DRAKE Department: Room: 295 Gender: M [employer]: OSCAR : 1945 Requested by: Eryn Jacinto Order Number: [id number] Liliana MD: PAT DONALDSON Intervals [place] Rate: 64 P: 20 MT: 212 QRS: 27 QRSD: 121 T: 12 QT: 467 QTc: 477 Interpretive Statements SINUS RHYTHM WITH PROLONGED MT INTERVAL POSSIBLE INFERIOR MYOCARDIAL INFARCTION, PROBABLY OLD Electronically Signed On 09-28-16 12:40:32 CDT by PAT DONALDSON [email or web address]
[2016-09-26 07:52] LABS: Hemoglobin A1 (Alkaline) 97.9 % (96.5-98.5); Hemoglobin A2 (Alkaline) 2.1 % (1.5-3.5)
[2016-09-26] MEDS: INSULIN REGULAR 100 UNIT/ML SUBCUT SCH ×4 (09:21→21:07)
[2016-09-26] MEDS: INSULIN NPH 100 UNIT/ML SUBCUT SCH (09:21)
[2016-09-26] MEDS: ENOXAPARIN 30 MG/0.3 ML SYRINGE SUBCUT SCH (09:22)
[2016-09-26] MEDS: PREGABALIN 75 MG CAPSULE PO SCH (09:22)
[2016-09-26] MEDS: HYDROXYCHLOROQUINE 200 MG TABLET PO SCH (09:22)
[2016-09-26] MEDS: ASPIRIN EC 81 MG TABLET PO SCH (09:23)
[2016-09-26] MEDS: COLCHICINE 0.6 MG TABLET PO SCH (09:23)
[2016-09-26] MEDS: SODIUM BICARBONATE 650 MG TABLET PO SCH ×2 (09:23→20:59)
[2016-09-26] MEDS: ALLOPURINOL 300 MG TABLET PO SCH (09:23)
[2016-09-26] MEDS: AMIODARONE 200 MG TABLET PO SCH ×2 (09:24→20:58)
[2016-09-26] MEDS: FUROSEMIDE 80 MG TABLET PO SCH ×2 (09:24→15:52)
[2016-09-26] MEDS: PANTOPRAZOLE 40 MG TABLET PO SCH ×2 (09:24→15:52)
[2016-09-26] MEDS: MAGNESIUM OXIDE 400 MG TABLET PO SCH (09:24)
[2016-09-26] MEDS: METOPROLOL TARTRATE 25 MG TABLET PO SCH ×2 (09:24→20:58)
[2016-09-26] MEDS: AMIODARONE INJ 450 MG in DEXTROSE 5% 241 ML IV SCH (09:25)
[2016-09-26] MEDS: METHOCARBAMOL 750 MG TABLET PO SCH ×4 (09:25→20:59)
--- NOTE | 2016-09-26 12:04 | Pulmonology Progress Note ---
Pulmonary - PN: Subj Interval history: Santosh Courtney, ANP-BC, GNP-BC, acting as scribe for Dr. Blair Brizuela This is a 70-year-old white male who we saw in initial pulmonary consultation on 09/22/2016. He is usually followed at [facility]. He was admitted here with shortness of breath and chest pain. At the time of our initial consultation, our impressions were: #1: Acute congestive heart failure #2: Acute exacerbation of COPD #3: Chronic renal failure #4: History of aortic stenosis now S/P AVR; done 2012 #5: History of gout #6: History of DVT #7: History of PE #8: Dyslipidemia #9: History of back/neck pain #10: Diabetes mellitus with history of DKA #11: See past history 09/23/2016. This patient's chest x-ray showed acute congestive heart failure with increased interstitial markings in all 5 lung manzo and central vascular congestion. Today's chest x-ray is much better. Patient is not sure whether not he is breathing better but she is not a particularly forthcoming historian. He is however having some chest pain today. His EKG shows sinus rhythm with a second-degree AV block, Mobitz type II. There is a left anterior hemiblock. I see no acute changes. Cardiology will see him shortly. Electrolytes are normal. Creatinine is stable but elevated at 3.2 with a BUN of 48. Patient is chronically anemia with an H&H of 9.2/27.9. White count is 9000 with 80 segs 8 lymphs and 7-1/2 monocytes. Natruretic peptide is fallen from 408-291. Thyroid function tests are normal. Echocardiogram shows ejection fraction of 60 % with septal hypokinesis and grade 2/6 diastolic dysfunction and moderately elevated filling pressures. There is a trace of mitral regurgitation. There is a trace of aortic valve regurgitation. Note the patient had an aortic valve repair 2012. Pulmonary artery pressures are elevated 65-70 mmHg with severe tricuspid regurgitation. Right atrium is moderately increased in size and the right ventricle is mildly increased in size. This patient was not on anticoagulation admission. There was a history of pulmonary emboli. I am going to check Doppler venograms of the lower extremities. If there is any doubt about pulmonary emboli we should proceed with a ventilation perfusion lung scan. Patient has renal failure and cannot be evaluated with contrast patient is on nifedipine XL 60 which should help with his pulmonary hypertension. 09/26/2016. Patient was seen today along with his . He states his breathing has improved over time. Today's chest x-ray shows that the patient's previously noted heart failure is greater than or equal to approximately 75% resolved. He continues to report occasional chest pain with varying durations. There is no radiation. He states cardiology is continuing to watch this. Dr. Spaulding is following from a nephrology standpoint. Medications have been reviewed. We made no changes today. Labs been reviewed. White count is 10,177.1% segs; H&H 8.7/27.0; platelet count 198,000; creatinine 4.40, BUN 65, sodium 134, potassium 4.7, magnesium 2.2 ; BNP 220 Exam (Progress Note) - Constitutional Vitals: Period Temp Pulse Resp BP Sys/Maloney Pulse Ox Last 24 Hr 96.4 F-99.0 F 60-87 16-20 98-128/42-70 93-99 Exam: Chest is fairly clear Heart no gallop Abdomen is obese but nontender nondistended; bowel sounds are positive 4 Extremities with nothing to suggest acute deep venous thrombophlebitis Psychiatric oriented 3 Neurologic long-term motor function is intact Plan: Continue present pulmonary treatment. See orders. Results - Labs CBC & BMP: 09/26/16 04:41 09/26/16 04:41
--- NOTE | 2016-09-26 12:21 | Sleep Medicine Consult ---
Assessment and Plan (1) Sleep disorder Status: Chronic Assessment and plan: His symptoms certainly are concerning for sleep apnea. With the severity of his sleep disruption and his comorbidities, polysomnography is indicated. Current Visit: Yes (2) Diabetes mellitus Status: Chronic Assessment and plan: The prevalence rate for obstructive sleep apnea in patients with type 2 diabetes can be as high as 86%. Those patients with moderate to severe obstructive sleep apnea are at a greater risk for diabetic nephropathy and neuropathy. Compliance with CPAP therapy for these patients can lead to improvement in glycemic control and improvement in insulin sensitivity. 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 That rate can be as high as 80% in patients who require 4 or more medications for blood pressure control. Current Visit: No (4) Diastolic CHF Status: Acute Assessment and plan: Untreated sleep apnea can be a contributing factor to congestive heart failure, systolic or diastolic in nature. Treatment of sleep apnea in these patients can certainly help with control of CHF. Current Visit: Yes History of Present Illness Chief complaint: Sleep apnea History of present illness: Mr. Acosta is a 71 year old male who I was asked to see from the surg physician asst service. He has a history of previous aortic valve replacement and presented with shortness of breath. He had atrial fibrillation with rapid ventricular response and was diagnosed with both exacerbation of congestive heart failure and COPD. Echocardiogram reveals severe pulmonary hypertension and evidence of right sided chamber enlargement concerning for cor pulmonale. Sleep medicine was therefore consulted. The patient does sleep on home O2 and does have a history of loud snoring and witnessed apneas during sleep according to his . He does have multiple awakenings during the night and estimates that he awakens 5-6 times nightly to urinate. He usually retires between 9 and 10 and will sleep until 7-8 the next morning. He does have symptoms of fatigue and sleepiness during the day, having an [place] sleepiness score of at least 10. He has never had previous sleep evaluation before. He is followed at the [facility] and thinks that he had been scheduled for evaluation but that that appointment fell through. Home Medications Medication Instructions Recorded Confirmed Type Atorvastatin Calcium [Lipitor] 40 mg PO DAILY 07/26/16 04/12/17 History Hydrocodone/Acetaminophen 1 each PO Q8H PRN 01/05/16 09/21/16 History [Hydrocodon-Acetaminophn 10-325] Hydroxychloroquine Sulfate 200 mg PO QOTHER DAY 01/05/16 09/21/16 History Magnesium Oxide 420 mg PO DAILY 01/05/16 09/21/16 History Methocarbamol Tab [Robaxin Tab] 750 mg PO QID 01/05/16 09/21/16 History Omeprazole [Prilosec] 20 mg PO BID W/MEALS 01/05/16 09/21/16 History Colchicine 0.5 tablet PO QOTHER DAY #0 01/08/16 09/21/16 Rx Allopurinol [Zyloprim] 150 mg PO DAILY #30 mg 02/06/16 09/21/16 Rx Aspirin [Ecotrin] 81 mg PO DAILY #100 tablet. 02/06/16 09/21/16 Rx Furosemide Tab [Lasix Tab] 40 mg PO DAILY W/BREAKFAST #30 02/06/16 09/21/16 Rx tablet Metoprolol Tartrate 25 mg PO BID #100 tablet 02/06/16 09/21/16 Rx NIFEdipine [Nifedipine ER] 60 mg PO DAILY #120 tablet.er 02/06/16 09/21/16 Rx Insulin Glargine [Lantus] 100 unit SUBCUT DAILY 09/21/16 09/21/16 History Pregabalin [Lyrica] 150 mg PO DAILY 09/21/16 09/21/16 History Sodium Bicarb Tab 325 mg PO BID 09/21/16 09/21/16 History Allergies Allergy/AdvReac Type Severity Reaction Status Date / Time steroid AdvReac Hypertensio Uncoded 09/21/16 20:58 n Review of systems: Otherwise unremarkable from a sleep standpoint. Exam (Pulmonay) H&P - Constitutional Vitals: Period Temp Pulse Resp BP Sys/Maloney Pulse Ox Last 24 Hr 96.4 F-99.0 F 60-87 16-20 98-128/42-70 93-99 Exam: He is alert and responsive in no acute distress. Pupils equal round reactive to light and accommodation. Extraocular movements intact. Oropharynx with a class IV Mallampati exam. Neck is supple without adenopathy or thyromegaly. No supraclavicular adenopathy is noted. Chest with symmetrical breath sounds without significant wheeze or rhonchi. Cardiac exam reveals a regular rhythm without murmur or gallop. Abdomen obese nontender without palpable hepatosplenomegaly or mass. Extremities are without clubbing, cyanosis, or edema. Neurologically, he is grossly intact. He moves all extremities with good strength and ambulates with a normal gait. Medical,Surgical,& Family Hx - Medical History Cardio: History of: Cardiac Dysrhythmia, Hypertension, Cardiovascular Problems ( Aortic valve; DVT's) No history of: CAD, [place] Endocrine: History of: Diabetes Mellitus (IDDM), Dyslipidemia Respiratory: History of: COPD (Home O2 at 2L) Musculoskeletal: History of: Back/Neck Problems - Surgical History Neurologic Surgeries: Patient denies: Neurologic Surgery HEENT Surgeries: Surgical HX of: Tonsilectomy & Adenoidectomy Orthopedic Surgeries: Surgical HX of;: Total Knee Replacement (BOTH) - Family History Family History: Reports;: Family Diabetes, Family Hypertension Denies;: Family Stroke Comment Only: Family Cancer (mother,colon. brother, prostate) - Social History Smoking Status: Former smoker Frequency of Alcohol Use: None Type of Drug Use: None Results - Labs CBC & BMP: 09/26/16 04:41 09/26/16 04:41 Lab Results: I have reviewed the past 24 hour labs
--- NOTE | 2016-09-26 13:07 | Nephrology Progress Note ---
Nephrology - PN: Subj Interval history: Shortness of breath has improved. Exam (PN)-Nephrology - Vital Signs Vital signs: Period Temp Pulse Resp BP Sys/Maloney Pulse Ox Last 24 Hr 96.4 F-99.0 F 60-87 16-20 98-128/42-70 93-99 Exam: ENT: Normal Cardiovascular: Regular rate and rhythm. No murmur rub or gallop Lungs: Clear Extremities: No edema - Lab 09/26/16 04:41 09/26/16 04:41 Most recent lab results Calcium 8.1 MG/DL (8.5-10.1) L 09/26/16 04:41 Magnesium 2.2 MG/DL (1.8-2.4) 09/26/16 04:41 Assessment and Plan (1) Chronic kidney disease, stage IV (severe) Status: Acute Assessment and plan: 70-year-old man admitted with: * CRF stage IV. Creatinine has risen with diuresis. He is now on by mouth Lasix * Diastolic CHF. Normal ejection fraction * Pulmonary hypertension * Prosthetic aortic valve * Diabetes mellitus * COPD. 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
[2016-09-26] MEDS ORDERED: INSULIN NPH 100 UNIT/ML SUBCUT SCH (15:36)
--- NOTE | 2016-09-26 15:39 | Hospitalist Progress Note ---
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 Now on po lasix. Creatinine unchanged. Nephrology assisting. Sleep medicine on board. Hopeful for discharge soon. Exam - Constitutional Vitals: Period Temp Pulse Resp BP Sys/Maloney Pulse Ox Last 24 Hr 96.4 F-99.0 F 60-87 16-20 98-128/42-70 93-99 General appearance: over weight - Head Head exam: Present: normocephalic, atraumatic - Eye Eye exam: Present: EOMI Pupils: Present: TAMIA - ENT ENT exam: Present: normal exam - Neck Neck exam: Present: normal inspection - Respiratory Respiratory exam: Present: clear to auscultation bilaterally. Absent: rhonchi, wheezes - Cardiovascular Cardiovascular exam: Present: regular rate and rhythm - GI/Abdominal GI/Abdominal exam: Present: normal bowel sounds, soft. Absent: mass, tenderness - Extremities Exam Extremities exam: Present: normal inspection - Back Exam Back exam: Present: normal inspection - Neurological Exam Neurological exam: Present: alert, oriented X3 - Psychiatric Psychiatric exam: Present: normal affect, normal mood - Skin Skin exam: Present: warm, intact Results - Labs CBC & BMP: 09/26/16 04:41 09/26/16 04:41
[2016-09-26] MEDS: ONDANSETRON 4 MG/2 ML VIAL IV PRN ×2 (15:51→22:32)
[2016-09-26] MEDS: LACTULOSE 20 GM/30 ML UDCUP PO PRN (15:52)
--- NOTE | 2016-09-26 16:43 | Cardiology Progress Note ---
<Keila Means - Last Filed: 09/26/16 16:03> Assessment and Plan (1) Diastolic CHF Status: Acute Assessment and plan: Shortness of breath is improving. Lasix has changed per nephrology to p.o. dosing due to rising creatinine. Avoiding CANDY inhibitor and ARB due to fear of worsening renal function. Continue beta-jim. According to I's and O's, patient has lost 5 pounds. Will continue to monitor with daily weights and strict I's and O's. Dr. Betancourt to follow with further recommendations. Current Visit: Yes (2) Acute exacerbation of chronic obstructive airways disease Status: Chronic Assessment and plan: Management per pulmonary. Current Visit: Yes (3) Chronic kidney disease, stage IV (severe) Status: Chronic Assessment and plan: Management per nephrology. Current Visit: Yes (4) Diabetes Status: Chronic Assessment and plan: Management per hospital medicine. Current Visit: Yes (5) Dyslipidemia Status: Chronic Assessment and plan: Continue current plan of care with lipid lowering agent. Current Visit: Yes (6) Obesity Status: Chronic Current Visit: Yes (7) Sleep disorder Status: Chronic Assessment and plan: Dr. Ca has been consulted. Current Visit: Yes (8) Status post aortic valve replacement with bioprosthetic valve Status: Chronic Assessment and plan: Continue current plan of care. Current Visit: Yes (9) Hypertension Status: Chronic Assessment and plan: This is clinically stable. Continue current plan of care. Current Visit: No (10) Anemia Status: Chronic Current Visit: No (11) Paroxysmal atrial fibrillation Status: Chronic Assessment and plan: Patient is currently in normal sinus rhythm. Continue current plan of care with amiodarone and beta-jim. Further plan and addendum to follow per Dr. Betancourt. Current Visit: Yes Cardiology - PN: Subj Interval history: SPACE CONTROL AGENT: DR. SARAY MARIE PCP: [facility]. DR. RADHA KRISHNAMURTHY Mr. Acosta is a 70 year old male followed by Dr. Marie. Risk factors include : Hypertension, dyslipidemia, diabetes, obesity, sedentary lifestyle, tobaccoism (stopped smoking 3 packs per day 1999). History of aortic valve replacement (tissue valve) [address] Magaña. At that time, he underwent cardiac catheterization which revealed no obstructive coronary artery disease. History atrial fibrillation (no longer taking Eliquis due to cost), known COPD, chronic anemia and chronic renal failure (not previously followed by renal). Echocardiogram September 23, 2016 reveals the following: EF 60%, septal hypokinesis , grade 2 diastolic dysfunction, severe TR with a pulmonary arterial pressure of 65-70 mmHg. Patient presented to the ER September 21, 2016 with chief complaint of shortness of breath. He reportedly has had increasing dyspnea on exertion over the past several months. Patient is currently being treated for acute on chronic congestive heart failure secondary to diastolic dysfunction (ejection fraction noted to be 60%) and acute exacerbation of COPD. He has a history of chronic renal failure. His creatinine has trended up throughout his admission. Nephrology has been consulted to further assist with this. He had recurrent atrial fibrillation that converted chemically with IV amiodarone. He is currently receiving amiodarone 400 mg p.o. twice daily. Sleep apnea was suspected. Dr. Ca evaluated patient this morning and plans for sleep study. Patient is also been mildly anemic this admission. This is thought to be secondary to chronic renal failure. No overt bleeding noted. We will continue to monitor with daily CBC. Patient was seen and examined on telemetry. Upon entering the room, he was lying flat in bed talking on the telephone in no acute distress. He reports that his breathing has greatly improved. Requiring oxygen at 2 L via nasal cannula intermittently. He tells me that he feels like his breathing seems to be back to baseline. Creatinine has trended up overnight to 4.4, 3.9 yesterday. Nephrology is following. Electrolytes are stable. Potassium 4.7 and magnesium 2.2. Patient currently in normal sinus rhythm with heart rates in the 60s without any further arrhythmias or ectopy noted. Vital signs are stable. Further recommendations to follow per Dr. Betancourt. Exam (Progress Note) - Constitutional Vitals: Period Temp Pulse Resp BP Sys/Maloney Pulse Ox Last 24 Hr 96.4 F-99.0 F 62-87 16-20 106-128/42-70 92-99 General appearance: normal weight, no acute distress - Head Head exam: Present: normal inspection, normocephalic, atraumatic - Neck Neck exam: Present: normal inspection. Absent: lymphadenopathy, tenderness, thyromegaly - Respiratory Respiratory exam: Present: clear to auscultation bilaterally. Absent: accessory muscle use, chest wall tenderness, rales, rhonchi, stridor, wheezes - Cardiovascular Cardiovascular exam: Present: regular rate and rhythm. Absent: gallop, rubs, systolic murmur - GI/Abdominal GI/Abdominal exam: Present: normal bowel sounds, soft. Absent: distended, firm , mass, tenderness - Extremities Exam Extremities exam: Present: normal inspection, normal capillary refill, other ( Bilateral lower extremity pulses 2+). Absent: calf tenderness, edema - Neurological Exam Neurological exam: Present: alert, oriented X3, normal gait - Psychiatric Psychiatric exam: Present: normal affect, normal mood - Skin Skin exam: Present: normal color, warm, dry. Absent: cyanosis Result/EKG - Labs CBC & BMP: 09/26/16 04:41 09/26/16 04:41 Lab Results: I have reviewed the past 24 hour labs Labs: Laboratory Results - last 24 hr 09/23/16 09/23/16 09/25/16 13:13 13:13 12:44 WBC 10.1 RBC 3.61 L Hgb 9.5 L Hct 30.4 L MCV 84.2 L MCH 26 L MCHC 31.3 L RDW 16.0 Plt Count 193 MPV 10.0 Neut % (Auto) 80.4 H Lymph % (Auto) 7.7 L [place] % (Auto) 7.1 Eos % (Auto) 3.4 Baso % (Auto) 0.7 Neut # (Auto) 8.1 H Lymph # (Auto) 0.8 L [place] # (Auto) 0.7 Eos # (Auto) 0.3 Baso # (Auto) 0.1 Immature Gran % 0.7 Nucleated RBC % 0.0 Immature Gran # 0.07 Nucleated RBCs # 0.00 Anemia Panel Interp See comment ESR Westergren 96 H Absolute Retic 0.1 Percent Retic 3.0 H Retic Hgb Equivalent 25.9 L Hemoglobin A1 97.9 Hemoglobin A2 2.1 Hgb ELP Interp See comment Sodium Potassium Chloride Carbon Dioxide Anion Gap BUN Creatinine GFR Calculation BUN/Creatinine Ratio Glucose POC Glucose 214 H Calculated Osmolality Calcium Magnesium B-Natriuretic Peptide Vitamin B12 383 Folate 6.3 09/25/16 09/25/16 09/26/16 15:27 19:45 04:41 WBC 10.1 RBC 3.35 L Hgb 8.7 L Hct 27.0 L MCV 80.6 L MCH 26 L MCHC 32.2 RDW 15.7 Plt Count 198 MPV 9.8 Neut % (Auto) 77.1 H Lymph % (Auto) 9.1 L [place] % (Auto) 8.0 Eos % (Auto) 4.5 Baso % (Auto) 0.7 Neut # (Auto) 7.8 H Lymph # (Auto) 0.9 L [place] # (Auto) 0.8 Eos # (Auto) 0.5 Baso # (Auto) 0.1 Immature Gran % 0.6 Nucleated RBC % 0.0 Immature Gran # 0.06 Nucleated RBCs # 0.00 Anemia Panel Interp ESR Westergren Absolute Retic Percent Retic Retic Hgb Equivalent Hemoglobin A1 Hemoglobin A2 Hgb ELP Interp Sodium Potassium Chloride Carbon Dioxide Anion Gap BUN Creatinine GFR Calculation BUN/Creatinine Ratio Glucose POC Glucose 210 H 216 H Calculated Osmolality Calcium Magnesium B-Natriuretic Peptide Vitamin B12 Folate 09/26/16 09/26/16 09/26/16 04:41 04:41 04:41 WBC RBC Hgb Hct MCV MCH MCHC RDW Plt Count MPV Neut % (Auto) Lymph % (Auto) [place] % (Auto) Eos % (Auto) Baso % (Auto) Neut # (Auto) Lymph # (Auto) [place] # (Auto) Eos # (Auto) Baso # (Auto) Immature Gran % Nucleated RBC % Immature Gran # Nucleated RBCs # Anemia Panel Interp ESR Westergren Absolute Retic Percent Retic Retic Hgb Equivalent Hemoglobin A1 Hemoglobin A2 Hgb ELP Interp Sodium 135 L 134 L Potassium 4.6 4.7 Chloride 100 99 Carbon Dioxide 21 21 Anion Gap 18.6 H 18.7 H BUN 64 H 65 H Creatinine 4.40 H 4.40 H GFR Calculation 18 18 BUN/Creatinine Ratio 14.00 14.00 Glucose 163 H 165 H POC Glucose Calculated Osmolality 291.1 290.2 Calcium 8.2 L 8.1 L Magnesium 2.2 B-Natriuretic Peptide 220 H Vitamin B12 Folate 09/26/16 09/26/16 09/26/16 07:51 11:52 15:48 WBC RBC Hgb Hct MCV MCH MCHC RDW Plt Count MPV Neut % (Auto) Lymph % (Auto) [place] % (Auto) Eos % (Auto) Baso % (Auto) Neut # (Auto) Lymph # (Auto) [place] # (Auto) Eos # (Auto) Baso # (Auto) Immature Gran % Nucleated RBC % Immature Gran # Nucleated RBCs # Anemia Panel Interp ESR Westergren Absolute Retic Percent Retic Retic Hgb Equivalent Hemoglobin A1 Hemoglobin A2 Hgb ELP Interp Sodium Potassium Chloride Carbon Dioxide Anion Gap BUN Creatinine GFR Calculation BUN/Creatinine Ratio Glucose POC Glucose 176 H 200 H 206 H Calculated Osmolality Calcium Magnesium B-Natriuretic Peptide Vitamin B12 Folate <Gelacio Betancourt - Last Filed: 09/26/16 18:21> Cardiology - PN: Subj Interval history: Patient personally interviewed and examined and chart reviewed. Have discussed his case with Keila Means [employer]PER[employer]. The patient for car A standpoint is doing well. He is still in sinus rhythm and first-degree AV block. His O2 saturations were up and down. He still has a cough. Chest x-ray some pulmonary vascular congestion. Unfortunately because of his renal dysfunction we're unable to aggressively diurese the patient. His Lasix dose has been decreased. Dr. Spaulding is following his renal function with us. We're continuing his cardiac medications without change today. His exam is as described. The patient was personally examined. Exam (Progress Note) - Constitutional Vitals: Period Temp Pulse Resp BP Sys/Maloney Pulse Ox Last 24 Hr 96.4 F-99.0 F 62-87 16-20 106-132/42-70 91-99 Result/EKG - Labs CBC & BMP: 09/26/16 04:41 09/26/16 04:41 Labs: Laboratory Results - last 24 hr 09/23/16 09/23/16 09/25/16 13:13 13:13 12:44 WBC 10.1 RBC 3.61 L Hgb 9.5 L Hct 30.4 L MCV 84.2 L MCH 26 L MCHC 31.3 L RDW 16.0 Plt Count 193 MPV 10.0 Neut % (Auto) 80.4 H Lymph % (Auto) 7.7 L [place] % (Auto) 7.1 Eos % (Auto) 3.4 Baso % (Auto) 0.7 Neut # (Auto) 8.1 H Lymph # (Auto) 0.8 L [place] # (Auto) 0.7 Eos # (Auto) 0.3 Baso # (Auto) 0.1 Immature Gran % 0.7 Nucleated RBC % 0.0 Immature Gran # 0.07 Nucleated RBCs # 0.00 Anemia Panel Interp See comment ESR Westergren 96 H Absolute Retic 0.1 Percent Retic 3.0 H Retic Hgb Equivalent 25.9 L Hemoglobin A1 97.9 Hemoglobin A2 2.1 Hgb ELP Interp See comment Sodium Potassium Chloride Carbon Dioxide Anion Gap BUN Creatinine GFR Calculation BUN/Creatinine Ratio Glucose POC Glucose 214 H Calculated Osmolality Calcium Magnesium B-Natriuretic Peptide Vitamin B12 383 Folate 6.3 09/25/16 09/25/16 09/26/16 15:27 19:45 04:41 WBC 10.1 RBC 3.35 L Hgb 8.7 L Hct 27.0 L MCV 80.6 L MCH 26 L MCHC 32.2 RDW 15.7 Plt Count 198 MPV 9.8 Neut % (Auto) 77.1 H Lymph % (Auto) 9.1 L [place] % (Auto) 8.0 Eos % (Auto) 4.5 Baso % (Auto) 0.7 Neut # (Auto) 7.8 H Lymph # (Auto) 0.9 L [place] # (Auto) 0.8 Eos # (Auto) 0.5 Baso # (Auto) 0.1 Immature Gran % 0.6 Nucleated RBC % 0.0 Immature Gran # 0.06 Nucleated RBCs # 0.00 Anemia Panel Interp ESR Westergren Absolute Retic Percent Retic Retic Hgb Equivalent Hemoglobin A1 Hemoglobin A2 Hgb ELP Interp Sodium Potassium Chloride Carbon Dioxide Anion Gap BUN Creatinine GFR Calculation BUN/Creatinine Ratio Glucose POC Glucose 210 H 216 H Calculated Osmolality Calcium Magnesium B-Natriuretic Peptide Vitamin B12 Folate 09/26/16 09/26/16 09/26/16 04:41 04:41 04:41 WBC RBC Hgb Hct MCV MCH MCHC RDW Plt Count MPV Neut % (Auto) Lymph % (Auto) [place] % (Auto) Eos % (Auto) Baso % (Auto) Neut # (Auto) Lymph # (Auto) [place] # (Auto) Eos # (Auto) Baso # (Auto) Immature Gran % Nucleated RBC % Immature Gran # Nucleated RBCs # Anemia Panel Interp ESR Westergren Absolute Retic Percent Retic Retic Hgb Equivalent Hemoglobin A1 Hemoglobin A2 Hgb ELP Interp Sodium 135 L 134 L Potassium 4.6 4.7 Chloride 100 99 Carbon Dioxide 21 21 Anion Gap 18.6 H 18.7 H BUN 64 H 65 H Creatinine 4.40 H 4.40 H GFR Calculation 18 18 BUN/Creatinine Ratio 14.00 14.00 Glucose 163 H 165 H POC Glucose Calculated Osmolality 291.1 290.2 Calcium 8.2 L 8.1 L Magnesium 2.2 B-Natriuretic Peptide 220 H Vitamin B12 Folate 09/26/16 09/26/16 09/26/16 07:51 11:52 15:48 WBC RBC Hgb Hct MCV MCH MCHC RDW Plt Count MPV Neut % (Auto) Lymph % (Auto) [place] % (Auto) Eos % (Auto) Baso % (Auto) Neut # (Auto) Lymph # (Auto) [place] # (Auto) Eos # (Auto) Baso # (Auto) Immature Gran % Nucleated RBC % Immature Gran # Nucleated RBCs # Anemia Panel Interp ESR Westergren Absolute Retic Percent Retic Retic Hgb Equivalent Hemoglobin A1 Hemoglobin A2 Hgb ELP Interp Sodium Potassium Chloride Carbon Dioxide Anion Gap BUN Creatinine GFR Calculation BUN/Creatinine Ratio Glucose POC Glucose 176 H 200 H 206 H Calculated Osmolality Calcium Magnesium B-Natriuretic Peptide Vitamin B12 Folate
[2016-09-26] MEDS: ZALEPLON 5 MG CAPSULE PO PRN (20:58)
[2016-09-26] MEDS: ATORVASTATIN 40 MG TABLET PO SCH (20:59)
[2016-09-27] MEDS: ALBUTEROL/IPRATROPIUM 3 ML NEB RESP TX SCH ×4 (01:32→20:26)
[2016-09-27] MEDS: AMIODARONE INJ 450 MG in DEXTROSE 5% 241 ML IV SCH ×2 (02:01→15:32)
[2016-09-27 06:16] LABS: White Blood Count 9.4 T/CUMM (4-12)
[2016-09-27 06:17] LABS: Basophils # 0.1 10*3/uL (0.0-0.2); Basophils % 0.6 % (0.0-0.8); Eosinophils # 0.4 10*3/uL (0.0-0.87); Eosinophils % 4.3 % (0.00-10.9); Hematocrit 25.9 VOL% (42.0-52.0); Hemoglobin 8.7 GM/DL (14.0-18.0); Immature Granulocytes % 0.7 %; Immature Granulocytes Absolute 0.07 #; Lymphocytes # 1.3 10*3/uL (1.4-4.0); Lymphocytes % 13.5 % (21.2-54.2); Mean Corpuscular HGB Conc 33.6 GM/DL (32-36); Mean Corpuscular Hemoglobin 26 PG (27-34); Mean Corpuscular Volume 78.5 FL (87-102); Mean Platelet Volume 10.4 FL (9.6-12.0); Monocytes # 0.9 10*3/uL (0.11-0.8); Monocytes % 9.8 % (1.7-12.7); Neutrophils # 6.7 10*3/uL (1.4-7.4); Neutrophils % 71.1 % (38.7-73.9); Platelet Count 209 T/CUMM (130-400); Red Cell Distribution Width 15.8 % (9.3-17.3)
[2016-09-27 06:36] LABS: Calcium 8.2 MG/DL (8.5-10.1); Magnesium 2.1 MG/DL (1.8-2.4); Osmolality,Calculated 293.1 MOS/KG (273-304); Potassium 4.6 MMOL/L (3.5-5.1)
[2016-09-27] MEDS: INSULIN REGULAR 100 UNIT/ML SUBCUT SCH ×4 (08:54→20:58)
[2016-09-27] MEDS: ENOXAPARIN 30 MG/0.3 ML SYRINGE SUBCUT SCH (08:54)
[2016-09-27] MEDS: LACTULOSE 20 GM/30 ML UDCUP PO PRN ×3 (08:54→23:54)
[2016-09-27] MEDS: INSULIN NPH 100 UNIT/ML SUBCUT SCH ×2 (08:55→20:58)
[2016-09-27] MEDS: ALLOPURINOL 300 MG TABLET PO SCH (08:55)
[2016-09-27] MEDS: METHOCARBAMOL 750 MG TABLET PO SCH ×4 (08:56→20:57)
[2016-09-27] MEDS: SODIUM BICARBONATE 650 MG TABLET PO SCH ×2 (08:56→20:57)
[2016-09-27] MEDS: PREGABALIN 75 MG CAPSULE PO SCH (08:56)
[2016-09-27] MEDS: ASPIRIN EC 81 MG TABLET PO SCH (08:57)
[2016-09-27] MEDS: MAGNESIUM OXIDE 400 MG TABLET PO SCH (08:57)
[2016-09-27] MEDS: AMIODARONE 200 MG TABLET PO SCH (08:57)
[2016-09-27] MEDS: PANTOPRAZOLE 40 MG TABLET PO SCH ×2 (08:57→16:39)
[2016-09-27] MEDS: FUROSEMIDE 80 MG TABLET PO SCH ×2 (08:57→16:39)
[2016-09-27] MEDS: METOPROLOL TARTRATE 25 MG TABLET PO SCH ×2 (09:00→20:58)
--- NOTE | 2016-09-27 11:57 | Pulmonology Progress Note ---
Pulmonary - PN: Subj Interval history: Santosh Courtney, ANP-BC, GNP-BC, acting as scribe for Dr. Blair Brizuela This is a 70-year-old white male who we saw in initial pulmonary consultation on 09/22/2016. He is usually followed at [facility]. He was admitted here with shortness of breath and chest pain. At the time of our initial consultation, our impressions were: #1: Acute congestive heart failure #2: Acute exacerbation of COPD #3: Chronic renal failure #4: History of aortic stenosis now S/P AVR; done 2012 #5: History of gout #6: History of DVT #7: History of PE #8: Dyslipidemia #9: History of back/neck pain #10: Diabetes mellitus with history of DKA #11: See past history 09/23/2016. This patient's chest x-ray showed acute congestive heart failure with increased interstitial markings in all 5 lung manzo and central vascular congestion. Today's chest x-ray is much better. Patient is not sure whether not he is breathing better but she is not a particularly forthcoming historian. He is however having some chest pain today. His EKG shows sinus rhythm with a second-degree AV block, Mobitz type II. There is a left anterior hemiblock. I see no acute changes. Cardiology will see him shortly. Electrolytes are normal. Creatinine is stable but elevated at 3.2 with a BUN of 48. Patient is chronically anemia with an H&H of 9.2/27.9. White count is 9000 with 80 segs 8 lymphs and 7-1/2 monocytes. Natruretic peptide is fallen from 408-291. Thyroid function tests are normal. Echocardiogram shows ejection fraction of 60 % with septal hypokinesis and grade 2/6 diastolic dysfunction and moderately elevated filling pressures. There is a trace of mitral regurgitation. There is a trace of aortic valve regurgitation. Note the patient had an aortic valve repair 2012. Pulmonary artery pressures are elevated 65-70 mmHg with severe tricuspid regurgitation. Right atrium is moderately increased in size and the right ventricle is mildly increased in size. This patient was not on anticoagulation admission. There was a history of pulmonary emboli. I am going to check Doppler venograms of the lower extremities. If there is any doubt about pulmonary emboli we should proceed with a ventilation perfusion lung scan. Patient has renal failure and cannot be evaluated with contrast patient is on nifedipine XL 60 which should help with his pulmonary hypertension. 09/26/2016. Patient was seen today along with his . He states his breathing has improved over time. Today's chest x-ray shows that the patient's previously noted heart failure is greater than or equal to approximately 75% resolved. He continues to report occasional chest pain with varying durations. There is no radiation. He states cardiology is continuing to watch this. Dr. Spaulding is following from a nephrology standpoint. 09/27/2016. Patient was laying flat in bed breathing comfortably. There is no cough or reported increased shortness of breath. From a pulmonary standpoint the patient is stable. Chest x-ray yesterday showed improving heart failure. Medications have been reviewed. We made no changes today. Labs been reviewed. White count is 9400 with a normal differential; H&H 8.7/ 25.9; platelet count 209,000; creatinine 4.90, BUN 71, sodium 135, potassium 4.6 , magnesium 2.1 Exam (Progress Note) - Constitutional Vitals: Period Temp Pulse Resp BP Sys/Maloney Pulse Ox Last 24 Hr 98.1 F-99.6 F 58-90 16-20 102-132/39-69 89-99 Exam: Chest is fairly clear Heart no gallop Abdomen is obese but nontender nondistended; bowel sounds are positive 4 Extremities with nothing to suggest acute deep venous thrombophlebitis Psychiatric oriented 3 Neurologic long-term motor function is intact Plan: The patient continues to do well from a pulmonary standpoint his acute exacerbation of COPD has resolved. He is off antibiotics, steroids, and bronchodilators. We will sign off. Please reconsult as needed. Results - Labs CBC & BMP: 09/27/16 05:39 09/27/16 05:39
--- NOTE | 2016-09-27 12:53 | Sleep Medicine Progress Note ---
Assessment and Plan (1) Sleep disorder Status: Chronic Assessment and plan: With his history of snoring, abnormal breathing during sleep, and significant daytime fatigue and sleepiness, there is certainly concern for obstructive sleep apnea. Polysomnography will be set up as an outpatient evaluation. Thank you for this consult. 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 We will set him up for outpatient sleep study evaluation with polysomnography and follow-up in the sleep clinic. Thank you for this consult. All questions were answered to his understanding. Exam (Progress Note) - Constitutional Vitals: Period Temp Pulse Resp BP Sys/Maloney Pulse Ox Last 24 Hr 98.1 F-99.6 F 58-90 16-20 102-132/39-67 89-99 Results - Labs CBC & BMP: 09/27/16 05:39 09/27/16 05:39
--- NOTE | 2016-09-27 13:13 | Cardiology Progress Note ---
<Keila Means - Last Filed: 09/27/16 13:33> Assessment and Plan (1) Diastolic CHF Status: Acute Assessment and plan: Shortness of breath is improving. Lasix has changed per nephrology to p.o. dosing due to rising creatinine. Avoiding CANDY inhibitor and ARB due to fear of worsening renal function. Continue beta-jim. Weight is unchanged overnight. Will continue to monitor with daily weights and strict I's and O's. Dr. Betancourt to follow with further recommendations. Current Visit: Yes (2) Acute exacerbation of chronic obstructive airways disease Status: Chronic Assessment and plan: Management per pulmonary. Current Visit: Yes (3) Chronic kidney disease, stage IV (severe) Status: Chronic Assessment and plan: Management per nephrology. Creatinine continues to rise. We will follow nephrology's recommendations. Current Visit: Yes (4) Diabetes Status: Chronic Assessment and plan: Management per hospital medicine. Current Visit: Yes (5) Dyslipidemia Status: Chronic Assessment and plan: Continue current plan of care with lipid lowering agent. Current Visit: Yes (6) Obesity Status: Chronic Current Visit: Yes (7) Sleep disorder Status: Chronic Assessment and plan: Dr. Ca has been consulted and he plans for outpatient sleep study. Current Visit: Yes (8) Status post aortic valve replacement with bioprosthetic valve Status: Chronic Assessment and plan: Continue current plan of care. Current Visit: Yes (9) Hypertension Status: Chronic Assessment and plan: This is clinically stable. Continue current plan of care. Current Visit: No (10) Anemia Status: Chronic Current Visit: No (11) Paroxysmal atrial fibrillation Status: Chronic Assessment and plan: Patient is currently in normal sinus rhythm. Continue beta-jim. We will decrease amiodarone dose at this time due to episodes of second-degree heart block overnight. Further plan and addendum to follow per Dr. Betancourt. Current Visit: Yes (12) First degree heart block Status: Acute Assessment and plan: Yesterday, patient was noted to be in first degree heart block. It appears that overnight patient was possibly going in and out of second-degree heart block. This was thought to have have occurred while patient was sleeping. Could possibly be related to sleep disorder. EKG was ordered and this reveals first-degree heart block with heart rate is 64. We will decrease amiodarone dose at this time. Will continue to monitor this closely. Will consider decreasing beta-jim if needed. Vital signs are stable. I will discuss this further with Dr. Betancourt. He will follow with further recommendations. Current Visit: Yes Cardiology - PN: Subj Interval history: CLOTH INSPECTOR: DR. SARAY MARIE PCP: [facility]. DR. RADHA KRISHNAMURTHY Mr. Acosta is a 70 year old male followed by Dr. Marie. Risk factors include : Hypertension, dyslipidemia, diabetes, obesity, sedentary lifestyle, tobaccoism (stopped smoking 3 packs per day 1999). History of aortic valve replacement (tissue valve) [address] Magaña. At that time, he underwent cardiac catheterization which revealed no obstructive coronary artery disease. History atrial fibrillation (no longer taking Eliquis due to cost), known COPD, chronic anemia and chronic renal failure (not previously followed by renal). Echocardiogram September 23, 2016 reveals the following: EF 60%, septal hypokinesis , grade 2 diastolic dysfunction, severe TR with a pulmonary arterial pressure of 65-70 mmHg. Patient presented to the ER September 21, 2016 with chief complaint of shortness of breath. He reportedly has had increasing dyspnea on exertion over the past several months. Patient is currently being treated for acute on chronic congestive heart failure secondary to diastolic dysfunction (ejection fraction noted to be 60%) and acute exacerbation of COPD. He has a history of chronic renal failure. His creatinine has trended up throughout his admission. Nephrology has been consulted to further assist with this. He had recurrent atrial fibrillation that converted chemically with IV amiodarone. He is currently receiving amiodarone 400 mg p.o. twice daily. Sleep apnea suspected. Dr. Ca is following. Patient is also been mildly anemic this admission. This is thought to be secondary to chronic renal failure. No overt bleeding noted. We will continue to monitor with daily CBC. Patient was seen and examined on telemetry. His breathing continues to slowly improve. He continues to require oxygen at 2 L via nasal cannula. He reports that he remains mildly short of breath with exertion. His weight is unchanged overnight. Creatinine has continued to trend up. Today it is 4.9. Unfortunately, because of his renal dysfunction we're unable to aggressively diurese the patient. His Lasix dose has been decreased. Dr. Spaulding is following. H&H today is 8.7 and 25.9. No overt bleeding noted. We will continue to monitor with daily CBC. Yesterday, patient was noted to be in first degree heart block. It appears that overnight patient was possibly going in and out of second-degree heart block. We will adjust his medications. Will also order an EKG. Vital signs are stable. I will discuss this further with Dr. Betancourt. He will follow with further recommendations. Dr. Betancourt with further plan and addendum. Exam (Progress Note) - Constitutional Vitals: Period Temp Pulse Resp BP Sys/Maloney Pulse Ox Last 24 Hr 98.1 F-99.6 F 58-90 16-20 102-132/39-67 89-99 Exam: General appearance: normal weight, no acute distress - Head Head exam: Present: normal inspection, normocephalic, atraumatic - Neck Neck exam: Present: normal inspection. Absent: lymphadenopathy, tenderness, thyromegaly - Respiratory Respiratory exam: Present: clear to auscultation bilaterally. Absent: accessory muscle use, chest wall tenderness, rales, rhonchi, stridor, wheezes - Cardiovascular Cardiovascular exam: Present: regular rate and rhythm. Absent: gallop, rubs, systolic murmur - GI/Abdominal GI/Abdominal exam: Present: normal bowel sounds, soft. Absent: distended, firm , mass, tenderness - Extremities Exam Extremities exam: Present: normal inspection, normal capillary refill, other ( Bilateral lower extremity pulses 2+). Absent: calf tenderness, edema - Neurological Exam Neurological exam: Present: alert, oriented X3, normal gait - Psychiatric Psychiatric exam: Present: normal affect, normal mood - Skin Skin exam: Present: normal color, warm, dry. Absent: cyanosis Result/EKG - Labs CBC & BMP: 09/27/16 05:39 09/27/16 05:39 Lab Results: I have reviewed the past 24 hour labs Labs: Laboratory Results - last 24 hr 09/26/16 09/26/16 09/27/16 15:48 20:00 05:39 WBC 9.4 RBC 3.30 L Hgb 8.7 L Hct 25.9 L MCV 78.5 L MCH 26 L MCHC 33.6 RDW 15.8 Plt Count 209 MPV 10.4 Neut % (Auto) 71.1 Lymph % (Auto) 13.5 L [place] % (Auto) 9.8 Eos % (Auto) 4.3 Baso % (Auto) 0.6 Neut # (Auto) 6.7 Lymph # (Auto) 1.3 L [place] # (Auto) 0.9 H Eos # (Auto) 0.4 Baso # (Auto) 0.1 Immature Gran % 0.7 Nucleated RBC % 0.0 Immature Gran # 0.07 Nucleated RBCs # 0.00 Sodium Potassium Chloride Carbon Dioxide Anion Gap BUN Creatinine GFR Calculation BUN/Creatinine Ratio Glucose POC Glucose 206 H 200 H Calculated Osmolality Calcium Magnesium 09/27/16 09/27/16 09/27/16 05:39 07:57 11:46 WBC RBC Hgb Hct MCV MCH MCHC RDW Plt Count MPV Neut % (Auto) Lymph % (Auto) [place] % (Auto) Eos % (Auto) Baso % (Auto) Neut # (Auto) Lymph # (Auto) [place] # (Auto) Eos # (Auto) Baso # (Auto) Immature Gran % Nucleated RBC % Immature Gran # Nucleated RBCs # Sodium 135 L Potassium 4.6 Chloride 100 Carbon Dioxide 22 Anion Gap 17.6 H BUN 71 H Creatinine 4.90 H GFR Calculation 16 BUN/Creatinine Ratio 14.00 Glucose 151 H POC Glucose 168 H 218 H Calculated Osmolality 293.1 Calcium 8.2 L Magnesium 2.1 <Gelacio Betancourt - Last Filed: 09/27/16 18:00> Cardiology - PN: Subj Interval history: Patient personally interviewed and examined. Chart reviewed. The case was discussed with Keila Means EMAIL MARKETING COORDINATOR. I agree with the history as well as examine assessment. From a cardiac standpoint the patient is doing fairly well. He has diastolic dysfunction with normal systolic function. He is not having any chest pain. He is still coughing some. His creatinine continues to do increase. He is had no breakthrough atrial fibrillation his rhythm remains stable and sinus. His hematocrit decreasing continues to be an issue. From our standpoint will continue to monitor the patient Exam (Progress Note) - Constitutional Vitals: Period Temp Pulse Resp BP Sys/Maloney Pulse Ox Last 24 Hr 97.8 F-99.6 F 58-90 16-20 102-124/39-63 89-99 Result/EKG - Labs CBC & BMP: 09/27/16 05:39 09/27/16 05:39 Labs: Laboratory Results - last 24 hr 09/26/16 09/27/1609/27/17 20:00 05:39 05:39 WBC 9.4 RBC 3.30 L Hgb 8.7 L Hct 25.9 L MCV 78.5 L MCH 26 L MCHC 33.6 RDW 15.8 Plt Count 209 MPV 10.4 Neut % (Auto) 71.1 Lymph % (Auto) 13.5 L [place] % (Auto) 9.8 Eos % (Auto) 4.3 Baso % (Auto) 0.6 Neut # (Auto) 6.7 Lymph # (Auto) 1.3 L [place] # (Auto) 0.9 H Eos # (Auto) 0.4 Baso # (Auto) 0.1 Immature Gran % 0.7 Nucleated RBC % 0.0 Immature Gran # 0.07 Nucleated RBCs # 0.00 Sodium 135 L Potassium 4.6 Chloride 100 Carbon Dioxide 22 Anion Gap 17.6 H BUN 71 H Creatinine 4.90 H GFR Calculation 16 BUN/Creatinine Ratio 14.00 Glucose 151 H POC Glucose 200 H Calculated Osmolality 293.1 Calcium 8.2 L Magnesium 2.1 09/27/16 09/27/16 09/27/16 07:57 11:46 15:25 WBC RBC Hgb Hct MCV MCH MCHC RDW Plt Count MPV Neut % (Auto) Lymph % (Auto) [place] % (Auto) Eos % (Auto) Baso % (Auto) Neut # (Auto) Lymph # (Auto) [place] # (Auto) Eos # (Auto) Baso # (Auto) Immature Gran % Nucleated RBC % Immature Gran # Nucleated RBCs # Sodium Potassium Chloride Carbon Dioxide Anion Gap BUN Creatinine GFR Calculation BUN/Creatinine Ratio Glucose POC Glucose 168 H 218 H 202 H Calculated Osmolality Calcium Magnesium
--- NOTE | 2016-09-27 13:38 | EKG Report ---
Stationary ECG Study [facility] Test Date: 09/27/2016 1:37:47 PM Pat Name: MALAIKA DRAKE Department: Room: 295 Gender: M [employer] Members[employer] Sales Agent: KIMBERLEE : 1945 Requested by: Keila Means Order Number: [id number] Reading MD: EVITA MARIE Intervals [place] Rate: 64 P: 35 AR: 316 QRS: -60 QRSD: 125 T: 94 QT: 450 QTc: 459 Interpretive Statements SINUS RHYTHM WITH FIRST-DEGREE AVB LEFT ANTERIOR FASCICULAR BLOCK Nonspecific interventricular conduction delay Electronically Signed On 09-30-16 16:55:04 CDT by EVITA MARIE [email or web address]
--- NOTE | 2016-09-27 13:45 | Nephrology Progress Note ---
Nephrology - PN: Subj Interval history: No orthopnea. HALE improving Exam (PN)-Nephrology - Vital Signs Vital signs: Period Temp Pulse Resp BP Sys/Maloney Pulse Ox Last 24 Hr 98.1 F-99.6 F 58-90 16-20 102-132/39-67 89-99 Exam: ENT: Normal Cardiovascular: Regular rate and rhythm. No murmur rub or gallop Lungs: Clear Extremities: No edema - Lab 09/27/16 05:39 09/27/16 05:39 Most recent lab results Calcium 8.2 MG/DL (8.5-10.1) L 09/27/16 05:39 Magnesium 2.1 MG/DL (1.8-2.4) 09/27/16 05:39 Assessment and Plan (1) Chronic kidney disease, stage IV (severe) Status: Chronic Assessment and plan: 70-year-old man admitted with: * CRF stage IV. Creatinine has risen with diuresis. He is now on by mouth Lasix. Fluid balance neutral yesterday * Diastolic CHF. Normal ejection fraction * Pulmonary hypertension * Prosthetic aortic valve * Diabetes mellitus * COPD. No wheezing today * Hypertension. Blood pressure borderline low. Nifedipine will be decreased to 30 mg daily * Anemia Current Visit: Yes (2) Diastolic CHF Status: Acute Current Visit: Yes (3) Acute exacerbation of chronic obstructive airways disease Status: Chronic Current Visit: Yes (4) Status post aortic valve replacement with bioprosthetic valve Status: Chronic Current Visit: Yes (5) Anemia Status: Chronic Current Visit: No (6) Chronic obstructive pulmonary disease Status: Chronic Current Visit: No (7) Diabetes mellitus Status: Chronic Current Visit: No Qualifiers: Qualified Code(s): E11.65 - Type 2 diabetes mellitus with hyperglycemia; Z79.4 - fisher scallop (current) use of insulin (8) Hypertension Status: Chronic Current Visit: No
--- NOTE | 2016-09-27 16:21 | Hospitalist Progress Note ---
Assessment and Plan (1) Chronic obstructive pulmonary disease Status: Chronic Current Visit: No (2) Diabetes mellitus Status: Chronic Current Visit: No Qualifiers: Diabetes mellitus type: type 2 Diabetes mellitus complication status: with hyperglycemia Diabetes mellitus terminal press operator insulin use: with nursing home use Qualified Code(s): E11.65 - Type 2 diabetes mellitus with hyperglycemia (3) Hypertension Status: Chronic Current Visit: No (4) CKD (chronic kidney disease) Status: Chronic Current Visit: Yes Qualifiers: Chronic kidney disease stage: stage 4 (severe) Qualified Code(s): N18.4 - Chronic kidney disease, stage 4 (severe) Hospitalist: Subjective Interval history: Patient feeling better. COPD exacerbation and CHF exacerbation both much improved. Now with MEGAN on CKD pending discharge. Nephrology assisting. Exam - Constitutional Vitals: Period Temp Pulse Resp BP Sys/Maloney Pulse Ox Last 24 Hr 97.8 F-99.6 F 58-90 16-20 102-124/39-63 89-99 General appearance: over weight - Head Head exam: Present: normocephalic, atraumatic - Eye Eye exam: Present: EOMI Pupils: Present: TAMIA - ENT ENT exam: Present: normal exam - Neck Neck exam: Present: normal inspection - Respiratory Respiratory exam: Present: clear to auscultation bilaterally. Absent: rhonchi, wheezes - Cardiovascular Cardiovascular exam: Present: regular rate and rhythm - GI/Abdominal GI/Abdominal exam: Present: normal bowel sounds, soft. Absent: tenderness, rebound - Extremities Exam Extremities exam: Present: normal inspection - Back Exam Back exam: Present: normal inspection - Neurological Exam Neurological exam: Present: alert, oriented X3 - Psychiatric Psychiatric exam: Present: normal affect, normal mood - Skin Skin exam: Present: warm, intact Results - Labs CBC & BMP: 09/27/16 05:39 09/27/16 05:39
[2016-09-27] MEDS: ATORVASTATIN 40 MG TABLET PO SCH (20:58)
[2016-09-28] MEDS: ALBUTEROL/IPRATROPIUM 3 ML NEB RESP TX SCH ×4 (01:16→18:54)
[2016-09-28] MEDS: INSULIN NPH 100 UNIT/ML SUBCUT SCH ×2 (08:49→22:03)
[2016-09-28] MEDS: ENOXAPARIN 30 MG/0.3 ML SYRINGE SUBCUT SCH (08:49)
[2016-09-28] MEDS: SODIUM BICARBONATE 650 MG TABLET PO SCH ×2 (08:49→21:41)
[2016-09-28 08:50] LABS: Calcium 8.5 MG/DL (8.5-10.1); Magnesium 2.5 MG/DL (1.8-2.4); Osmolality,Calculated 297.1 MOS/KG (273-304); Potassium 4.8 MMOL/L (3.5-5.1)
[2016-09-28] MEDS: AMIODARONE 200 MG TABLET PO SCH (08:50)
[2016-09-28] MEDS: HYDROXYCHLOROQUINE 200 MG TABLET PO SCH (08:50)
[2016-09-28] MEDS: ASPIRIN EC 81 MG TABLET PO SCH (08:50)
[2016-09-28] MEDS: PREGABALIN 75 MG CAPSULE PO SCH (08:50)
[2016-09-28] MEDS: MAGNESIUM OXIDE 400 MG TABLET PO SCH (08:51)
[2016-09-28] MEDS: PANTOPRAZOLE 40 MG TABLET PO SCH ×2 (08:51→16:49)
[2016-09-28] MEDS: ALLOPURINOL 300 MG TABLET PO SCH (08:51)
[2016-09-28] MEDS: METHOCARBAMOL 750 MG TABLET PO SCH ×4 (08:51→21:40)
[2016-09-28] MEDS: METOPROLOL TARTRATE 25 MG TABLET PO SCH ×2 (08:51→21:42)
[2016-09-28] MEDS: FUROSEMIDE 80 MG TABLET PO SCH ×2 (08:51→17:03)
[2016-09-28] MEDS: AMIODARONE INJ 450 MG in DEXTROSE 5% 241 ML IV SCH (08:52)
[2016-09-28] MEDS: INSULIN REGULAR 100 UNIT/ML SUBCUT SCH ×5 (08:52→21:42)
[2016-09-28] MEDS: LACTULOSE 20 GM/30 ML UDCUP PO PRN (09:10)
[2016-09-28] MEDS: COLCHICINE 0.6 MG TABLET PO SCH (09:10)
--- NOTE | 2016-09-28 13:41 | Cardiology Progress Note ---
<Keila Means - Last Filed: 09/28/16 13:51> Assessment and Plan (1) Diastolic CHF Status: Acute Assessment and plan: Shortness of breath is improving. Receiving p.o. Lasix and diuresing well. Avoiding CANDY inhibitor and ARB due to fear of worsening renal function. Continue beta-jim. Weight is up 1 pound overnight. Will continue to monitor with daily weights and strict I's and O's. Dr. Betancourt to follow with further recommendations. Current Visit: Yes (2) Acute exacerbation of chronic obstructive airways disease Status: Chronic Assessment and plan: Management per pulmonary. Current Visit: Yes (3) Chronic kidney disease, stage IV (severe) Status: Chronic Assessment and plan: Management per nephrology. Creatinine continues to rise, up to 5.4 today. We will follow nephrology's recommendations. Current Visit: Yes (4) Diabetes Status: Chronic Assessment and plan: Management per hospital medicine. Current Visit: Yes (5) Dyslipidemia Status: Chronic Assessment and plan: Continue current plan of care with lipid lowering agent. Current Visit: Yes (6) Obesity Status: Chronic Current Visit: Yes (7) Sleep disorder Status: Chronic Assessment and plan: Dr. Ca has been consulted and he plans for outpatient sleep study. Current Visit: Yes (8) Status post aortic valve replacement with bioprosthetic valve Status: Chronic Assessment and plan: Continue current plan of care. Current Visit: Yes (9) Hypertension Status: Chronic Assessment and plan: This is clinically stable. Continue current plan of care. Current Visit: No (10) Anemia Status: Chronic Current Visit: No (11) Paroxysmal atrial fibrillation Status: Chronic Assessment and plan: Patient is currently in normal sinus rhythm. Continue beta-jim. Continue amiodarone. Further plan and addendum to follow per Dr. Betancourt. Current Visit: Yes (12) First degree heart block Status: Acute Assessment and plan: She continues to be in first degree heart block. Has had no further episodes of second-degree heart block. We will continue to monitor this. Vital signs are stable. Continue current plan of care. Further plan and addendum to follow per Dr. Betancourt. Current Visit: Yes (13) Anemia Status: Chronic Assessment and plan: H&H has dropped this morning to 8.7 and 25.9. No overt bleeding noted. Require transfusion. Will defer further management to hospital medicine. Current Visit: No Cardiology - PN: Subj Interval history: FACILITY MAINTENANCE MANAGER: DR. SARAY MARIE PCP: [facility]. DR. RADHA KRISHNAMURTHY Mr. Acosta is a 70 year old male followed by Dr. Marie. Risk factors include : Hypertension, dyslipidemia, diabetes, obesity, sedentary lifestyle, tobaccoism (stopped smoking 3 packs per day 1999). History of aortic valve replacement (tissue valve) [address] Magaña. At that time, he underwent cardiac catheterization which revealed no obstructive coronary artery disease. History atrial fibrillation (no longer taking Eliquis due to cost), known COPD, chronic anemia and chronic renal failure (not previously followed by renal). Echocardiogram September 23, 2016 reveals the following: EF 60%, septal hypokinesis , grade 2 diastolic dysfunction, severe TR with a pulmonary arterial pressure of 65-70 mmHg. Patient presented to the ER September 21, 2016 with chief complaint of shortness of breath. He reportedly has had increasing dyspnea on exertion over the past several months. Patient is currently being treated for acute on chronic congestive heart failure secondary to diastolic dysfunction (ejection fraction noted to be 60%) and acute exacerbation of COPD. He has a history of chronic renal failure. His creatinine has trended up throughout his admission. Nephrology has been consulted to further assist with this. He had recurrent atrial fibrillation that converted chemically with IV amiodarone. He is currently receiving amiodarone p.o. twice daily. Sleep apnea suspected. Dr. Ca is following. Patient is also been mildly anemic this admission. This is thought to be secondary to chronic renal failure. No overt bleeding noted. We will continue to monitor with daily CBC. Patient was seen and examined on telemetry. Shortness of breath continues to improve. Upon entering the room, he was lying flat without any respiratory distress. Continues to require oxygen via nasal cannula. He does complain of mild chest pain. He is noted to have chronic chest wall pain. Chest pain is located in the left chest wall and reproducible to light palpation. Troponin has been negative this admission. EKG has been without acute ischemia. H&H is also low today at 8.7 and 25.9. No overt bleeding. Patient may need transfusion. Creatinine continues to rise, today it is 5.4. Nephrology is following, appreciate their recommendations. Patient continues to diurese well with p.o. Lasix. Weight is up 1 pound overnight. We will continue to monitor daily weights and strict I's and O's. Vital signs are stable. We will continue to monitor patient on telemetry. Further plan and addendum to follow per Dr. Betancourt. Exam (Progress Note) - Constitutional Vitals: Period Temp Pulse Resp BP Sys/Maloney Pulse Ox Last 24 Hr 97.8 F-99.7 F 63-71 16-20 113-145/59-70 91-99 Exam: General appearance: normal weight, no acute distress - Head Head exam: Present: normal inspection, normocephalic, atraumatic - Neck Neck exam: Present: normal inspection. Absent: lymphadenopathy, tenderness, thyromegaly - Respiratory Respiratory exam: Present: clear to auscultation bilaterally. Absent: accessory muscle use, chest wall tenderness, rales, rhonchi, stridor, wheezes - Cardiovascular Cardiovascular exam: Present: regular rate and rhythm. Absent: gallop, rubs, systolic murmur - GI/Abdominal GI/Abdominal exam: Present: normal bowel sounds, soft. Absent: distended, firm , mass, tenderness - Extremities Exam Extremities exam: Present: normal inspection, normal capillary refill, other ( Bilateral lower extremity pulses 2+). Absent: calf tenderness, edema - Neurological Exam Neurological exam: Present: alert, oriented X3, normal gait - Psychiatric Psychiatric exam: Present: normal affect, normal mood - Skin Skin exam: Present: normal color, warm, dry. Absent: cyanosis Result/EKG - Labs CBC & BMP: 09/27/16 05:39 09/28/16 08:00 Lab Results: I have reviewed the past 24 hour labs Labs: Laboratory Results - last 24 hr 09/27/16 09/27/16 09/28/16 15:25 20:00 08:00 Sodium 135 L Potassium 4.8 Chloride 101 Carbon Dioxide 23 Anion Gap 15.8 H BUN 76 H Creatinine 5.40 H GFR Calculation 14 BUN/Creatinine Ratio 14.00 Glucose 183 H POC Glucose 202 H 213 H Calculated Osmolality 297.1 Calcium 8.5 Magnesium 2.5 H 09/28/16 09/28/16 08:09 12:09 Sodium Potassium Chloride Carbon Dioxide Anion Gap BUN Creatinine GFR Calculation BUN/Creatinine Ratio Glucose POC Glucose 192 H 190 H Calculated Osmolality Calcium Magnesium <Gelacio Betancourt - Last Filed: 09/28/16 16:27> Cardiology - PN: Subj Interval history: Patient personally interviewed and examined and chart reviewed. I discussed the case with Keila Means CENTER REP. I agree with the history as well as examination and assessment. In addition is summation from cardiac standpoint he remained stable. His biggest issues is probably an element of diastolic dysfunction with volume retention. The patient needs continued diuresis but he is having issues with increasing creatinine and has a history of progressive renal dysfunction. His blood pressures are borderline. He does have room to go up on his medication if needed that includes increasing his nifedipine but would have to be cautious about developing secondary peripheral edema from this. His rhythm has remained stable and without any breakthrough atrial fibrillation. Remains in sinus rhythm. At present for cardiac standpoint continue his present therapy and hope that he will slowly diurese. Nephrology will continue to monitor but at some point this patient may need dialysis. Exam (Progress Note) - Constitutional Vitals: Period Temp Pulse Resp BP Sys/Maloney Pulse Ox Last 24 Hr 97.6 F-99.7 F 63-71 18-20 118-145/60-70 88-99 Result/EKG - Labs CBC & BMP: 09/27/16 05:39 09/28/16 08:00 Labs: Laboratory Results - last 24 hr 09/27/16 09/28/16 09/28/16 20:00 08:00 08:09 Sodium 135 L Potassium 4.8 Chloride 101 Carbon Dioxide 23 Anion Gap 15.8 H BUN 76 H Creatinine 5.40 H GFR Calculation 14 BUN/Creatinine Ratio 14.00 Glucose 183 H POC Glucose 213 H 192 H Calculated Osmolality 297.1 Calcium 8.5 Magnesium 2.5 H 09/28/16 09/28/16 12:09 15:27 Sodium Potassium Chloride Carbon Dioxide Anion Gap BUN Creatinine GFR Calculation BUN/Creatinine Ratio Glucose POC Glucose 190 H 205 H Calculated Osmolality Calcium Magnesium
--- NOTE | 2016-09-28 16:14 | Hospitalist Progress Note ---
Assessment and Plan (1) Chronic obstructive pulmonary disease Status: Chronic Current Visit: No (2) Diabetes mellitus Status: Chronic Current Visit: No Qualifiers: Diabetes mellitus type: type 2 Diabetes mellitus complication status: with hyperglycemia Diabetes mellitus intermission coordinator insulin use: with senior living use Qualified Code(s): E11.65 - Type 2 diabetes mellitus with hyperglycemia (3) Hypertension Status: Chronic Current Visit: No (4) CKD (chronic kidney disease) Status: Chronic Current Visit: Yes Qualifiers: Chronic kidney disease stage: stage 4 (severe) Qualified Code(s): N18.4 - Chronic kidney disease, stage 4 (severe) Hospitalist: Subjective Interval history: No acute events overnight. Patient sitting in chair, reports that he feels better. Not much change in creatinine, a little higher. Nephrology assisting. Exam - Constitutional Vitals: Period Temp Pulse Resp BP Sys/Maloney Pulse Ox Last 24 Hr 97.6 F-99.7 F 63-71 18-20 118-145/60-70 88-99 General appearance: over weight - Head Head exam: Present: normocephalic, atraumatic - Eye Eye exam: Present: EOMI Pupils: Present: TAMIA - ENT ENT exam: Present: normal exam - Neck Neck exam: Present: normal inspection - Respiratory Respiratory exam: Present: clear to auscultation bilaterally. Absent: rhonchi, wheezes - Cardiovascular Cardiovascular exam: Present: regular rate and rhythm - GI/Abdominal GI/Abdominal exam: Present: normal bowel sounds, soft. Absent: tenderness, rebound - Extremities Exam Extremities exam: Present: normal inspection - Back Exam Back exam: Present: normal inspection - Neurological Exam Neurological exam: Present: alert, oriented X3 - Psychiatric Psychiatric exam: Present: normal affect, normal mood - Skin Skin exam: Present: warm, intact Results - Labs CBC & BMP: 09/27/16 05:39 09/28/16 08:00
--- NOTE | 2016-09-28 17:26 | Nephrology Progress Note ---
Nephrology - PN: Subj Interval history: No orthopnea. He still has HALE. Exam (PN)-Nephrology - Vital Signs Vital signs: Period Temp Pulse Resp BP Sys/Maloney Pulse Ox Last 24 Hr 97.6 F-99.7 F 63-71 18-20 118-145/60-70 88-99 Exam: ENT: Normal Cardiovascular: Regular rate and rhythm. No murmur rub or gallop Lungs: Clear Extremities: No edema - Lab 09/27/16 05:39 09/28/16 08:00 Most recent lab results Calcium 8.5 MG/DL (8.5-10.1) 09/28/16 08:00 Magnesium 2.5 MG/DL (1.8-2.4) H 09/28/16 08:00 Assessment and Plan (1) Chronic kidney disease, stage IV (severe) Status: Chronic Assessment and plan: 70-year-old man admitted with: * CRF stage IV. Creatinine has risen with diuresis. Fluid balance negative on by mouth Lasix. Dose will be reduced * Diastolic CHF. Normal ejection fraction * Pulmonary hypertension * Prosthetic aortic valve * Diabetes mellitus * COPD. No wheezing today * Hypertension. Blood pressure borderline low. Nifedipine will be decreased to 30 mg daily * Anemia Current Visit: Yes (2) Diastolic CHF Status: Acute Current Visit: Yes (3) Acute exacerbation of chronic obstructive airways disease Status: Chronic Current Visit: Yes (4) Status post aortic valve replacement with bioprosthetic valve Status: Chronic Current Visit: Yes (5) Anemia Status: Chronic Current Visit: No (6) Chronic obstructive pulmonary disease Status: Chronic Current Visit: No (7) Diabetes mellitus Status: Chronic Current Visit: No Qualifiers: Diabetes mellitus type: type 2 Diabetes mellitus complication status: with hyperglycemia Diabetes mellitus alf insulin use: with medical terminologist use Qualified Code(s): E11.65 - Type 2 diabetes mellitus with hyperglycemia (8) Hypertension Status: Chronic Current Visit: No
[2016-09-28] MEDS: ATORVASTATIN 40 MG TABLET PO SCH (21:41)
[2016-09-28] MEDS: ZALEPLON 5 MG CAPSULE PO PRN (22:22)
[2016-09-29] MEDS: ALBUTEROL/IPRATROPIUM 3 ML NEB RESP TX SCH ×4 (00:20→18:46)
[2016-09-29 05:56] LABS: Basophils # 0.1 10*3/uL (0.0-0.2); Basophils % 0.6 % (0.0-0.8); Eosinophils # 0.6 10*3/uL (0.0-0.87); Eosinophils % 5.3 % (0.00-10.9); Hematocrit 28.6 VOL% (42.0-52.0); Hemoglobin 9.1 GM/DL (14.0-18.0); Immature Granulocytes % 0.5 %; Immature Granulocytes Absolute 0.06 #; Lymphocytes # 1.1 10*3/uL (1.4-4.0); Mean Corpuscular HGB Conc 31.8 GM/DL (32-36); Mean Corpuscular Hemoglobin 26 PG (27-34); Mean Platelet Volume 9.9 FL (9.6-12.0); Monocytes # 0.9 10*3/uL (0.11-0.8); Monocytes % 7.8 % (1.7-12.7); Neutrophils # 8.3 10*3/uL (1.4-7.4); Neutrophils % 75.8 % (38.7-73.9); Platelet Count 230 T/CUMM (130-400); Red Blood Count 3.53 MC/CUMM (3.8-5.5); Red Cell Distribution Width 15.8 % (9.3-17.3); White Blood Count 10.9 T/CUMM (4-12)
[2016-09-29 06:11] LABS: Calcium 8.5 MG/DL (8.5-10.1); Magnesium 2.6 MG/DL (1.8-2.4); Osmolality,Calculated 296.1 MOS/KG (273-304); Potassium 4.6 MMOL/L (3.5-5.1)
[2016-09-29] MEDS: AMIODARONE INJ 450 MG in DEXTROSE 5% 241 ML IV SCH ×2 (07:10→15:04)
[2016-09-29] MEDS: INSULIN REGULAR 100 UNIT/ML SUBCUT SCH ×4 (08:42→21:00)
[2016-09-29] MEDS: PANTOPRAZOLE 40 MG TABLET PO SCH ×2 (08:43→18:37)
[2016-09-29] MEDS: FUROSEMIDE 80 MG TABLET PO SCH (08:43)
[2016-09-29] MEDS: INSULIN NPH 100 UNIT/ML SUBCUT SCH ×2 (08:43→21:18)
[2016-09-29] MEDS: ENOXAPARIN 30 MG/0.3 ML SYRINGE SUBCUT SCH (08:43)
[2016-09-29] MEDS: PREGABALIN 75 MG CAPSULE PO SCH (08:43)
[2016-09-29] MEDS: AMIODARONE 200 MG TABLET PO SCH (08:43)
[2016-09-29] MEDS: ALLOPURINOL 300 MG TABLET PO SCH (08:44)
[2016-09-29] MEDS: METHOCARBAMOL 750 MG TABLET PO SCH ×4 (08:44→21:16)
[2016-09-29] MEDS: MAGNESIUM OXIDE 400 MG TABLET PO SCH (08:44)
[2016-09-29] MEDS: METOPROLOL TARTRATE 25 MG TABLET PO SCH ×2 (08:44→21:17)
[2016-09-29] MEDS: ASPIRIN EC 81 MG TABLET PO SCH (08:44)
[2016-09-29] MEDS: SODIUM BICARBONATE 650 MG TABLET PO SCH ×2 (08:44→21:16)
--- NOTE | 2016-09-29 14:18 | Hospitalist Progress Note ---
Assessment and Plan (1) Chronic obstructive pulmonary disease Status: Chronic Assessment and plan: Treated for exacerbation. Now resolved. Current Visit: No (2) Diabetes mellitus Status: Chronic Assessment and plan: Increasing NPH Current Visit: No Qualifiers: Diabetes mellitus type: type 2 Diabetes mellitus complication status: with hyperglycemia Diabetes mellitus halfway insulin use: with halfway use Qualified Code(s): E11.65 - Type 2 diabetes mellitus with hyperglycemia (3) Hypertension Status: Chronic Assessment and plan: Nephrology and Cardiology assisting. Currently doing well. Current Visit: No (4) CKD (chronic kidney disease) Status: Chronic Assessment and plan: With component of Joe now post lasix Nephrology managing Current Visit: Yes Qualifiers: Chronic kidney disease stage: stage 4 (severe) Qualified Code(s): N18.4 - Chronic kidney disease, stage 4 (severe) (5) Diastolic CHF Status: Acute Assessment and plan: Treated for exacerbation. Improving. Cardiology following. Current Visit: Yes Hospitalist: Subjective Interval history: Not much change. Seen sitting in chair. Creatinine is essentially unchanged, nephrology managing. H/H stable. Increasing insulin. Exam - Constitutional Vitals: Period Temp Pulse Resp BP Sys/Maloney Pulse Ox Last 24 Hr 97.4 F-99.2 F 56-73 16-20 105-134/46-69 88-98 General appearance: over weight - Head Head exam: Present: normocephalic, atraumatic - Eye Eye exam: Present: EOMI Pupils: Present: TAMIA - ENT ENT exam: Present: normal exam - Neck Neck exam: Present: normal inspection - Respiratory Respiratory exam: Present: clear to auscultation bilaterally. Absent: rhonchi, wheezes - Cardiovascular Cardiovascular exam: Present: regular rate and rhythm - GI/Abdominal GI/Abdominal exam: Present: normal bowel sounds, soft. Absent: tenderness, rebound - Extremities Exam Extremities exam: Present: normal inspection - Back Exam Back exam: Present: normal inspection - Neurological Exam Neurological exam: Present: alert, oriented X3 - Psychiatric Psychiatric exam: Present: normal affect, normal mood - Skin Skin exam: Present: warm, intact Results - Labs CBC & BMP: 09/29/16 04:35 09/29/16 04:35
--- NOTE | 2016-09-29 14:44 | Cardiology Progress Note ---
<Keila Means - Last Filed: 09/29/16 14:36> Assessment and Plan (1) Diastolic CHF Status: Acute Assessment and plan: Shortness of breath is improving. Receiving p.o. Lasix. Patient needs continued diuresis but he is having issues with increasing creatinine. Nephrology is following, appreciate their recommendations. Avoiding CANDY inhibitor due to fear of worsening renal function. Continue beta-jmi. Weight is down 1 pound overnight. Will continue to monitor with daily weights and strict I's and O's. Dr. Betancourt to follow with further recommendations. Current Visit: Yes (2) Acute exacerbation of chronic obstructive airways disease Status: Resolved Current Visit: Yes (3) Chronic kidney disease, stage IV (severe) Status: Chronic Assessment and plan: Management per nephrology. Following their recommendations. Current Visit: Yes (4) Diabetes Status: Chronic Assessment and plan: Management per hospital medicine. Current Visit: Yes (5) Dyslipidemia Status: Chronic Assessment and plan: Continue current plan of care with lipid lowering agent. Current Visit: Yes (6) Obesity Status: Chronic Current Visit: Yes (7) Sleep disorder Status: Chronic Assessment and plan: Dr. Ca has been consulted and he plans for outpatient sleep study. Current Visit: Yes (8) Status post aortic valve replacement with bioprosthetic valve Status: Chronic Assessment and plan: Continue current plan of care. Current Visit: Yes (9) Hypertension Status: Chronic Assessment and plan: This is clinically stable. Continue current plan of care. Current Visit: No (10) Paroxysmal atrial fibrillation Status: Chronic Assessment and plan: Patient is currently in normal sinus rhythm. Continue beta-jim. Continue amiodarone. Further plan and addendum to follow per Dr. Betancourt. Current Visit: Yes (11) First degree heart block Status: Acute Assessment and plan: He continues to be in first degree heart block. Has had no further episodes of second-degree heart block. We will continue to monitor this. Vital signs are stable. Continue current plan of care. Further plan and addendum to follow per Dr. Betancourt. Current Visit: Yes (12) Anemia Status: Chronic Assessment and plan: H&H is slightly better today at 9.1 and 28.6. No overt bleeding noted. Most likely secondary to patient's chronic kidney disease. Defer further management of this to hospital medicine. Current Visit: No Cardiology - PN: Subj Interval history: PROFESSOR OF VIOLIN: DR. SARAY MARIE PCP: [facility]. DR. RADHA KRISHNAMURTHY Mr. Acosta is a 70 year old male followed by Dr. Marie. Risk factors include : Hypertension, dyslipidemia, diabetes, obesity, sedentary lifestyle, tobaccoism (stopped smoking 3 packs per day 1999). History of aortic valve replacement (tissue valve) [address] Magaña. At that time, he underwent cardiac catheterization which revealed no obstructive coronary artery disease. History atrial fibrillation (no longer taking Eliquis due to cost), known COPD, chronic anemia and chronic renal failure (not previously followed by renal). Echocardiogram September 23, 2016 reveals the following: EF 60%, septal hypokinesis , grade 2 diastolic dysfunction, severe TR with a pulmonary arterial pressure of 65-70 mmHg. Patient presented to the ER September 21, 2016 with chief complaint of shortness of breath. He reportedly has had increasing dyspnea on exertion over the past several months. Patient is currently being treated for acute on chronic congestive heart failure secondary to diastolic dysfunction (ejection fraction noted to be 60%) and acute exacerbation of COPD. He has a history of chronic renal failure. His creatinine has trended up throughout his admission. Nephrology has been consulted to further assist with this. He had recurrent atrial fibrillation that converted chemically with IV amiodarone. He is currently receiving amiodarone p.o. twice daily. Sleep apnea suspected. Dr. Ca is following. Patient is also been mildly anemic this admission. This is thought to be secondary to chronic renal failure. No overt bleeding noted. We will continue to monitor with daily CBC. Patient was seen and examined on the telemetry unit. He has done well overnight and is without complaints this morning. He tells me that his shortness of breath has continued to improve. He denies chest pain, heaviness and tightness. He is currently requiring oxygen via nasal cannula. When entering the room, he was lying flat in bed without any respiratory distress. H &H is better this morning at 9.1 and 28.6. Will continue to monitor with daily CBC. Creatinine is slightly better today at 5.3 from 5.4 yesterday. Nephrology is following. Appreciate their recommendations. He continues to receive p.o. Lasix. According to his I's and O's, he lost 1 pound overnight. We will continue to monitor his daily weights and I's and O's. Vital signs are stable. Patient is currently normal sinus rhythm with heart rates in the 60s without any overt arrhythmias or ectopy noted. Exam (Progress Note) - Constitutional Vitals: Period Temp Pulse Resp BP Sys/Maloney Pulse Ox Last 24 Hr 97.4 F-99.2 F 56-73 16-20 105-134/46-69 88-98 Exam: General appearance: normal weight, no acute distress - Head Head exam: Present: normal inspection, normocephalic, atraumatic - Neck Neck exam: Present: normal inspection. Absent: lymphadenopathy, tenderness, thyromegaly - Respiratory Respiratory exam: Present: clear to auscultation bilaterally. Absent: accessory muscle use, chest wall tenderness, rales, rhonchi, stridor, wheezes - Cardiovascular Cardiovascular exam: Present: regular rate and rhythm. Absent: gallop, rubs, systolic murmur - GI/Abdominal GI/Abdominal exam: Present: normal bowel sounds, soft. Absent: distended, firm , mass, tenderness - Extremities Exam Extremities exam: Present: normal inspection, normal capillary refill, other ( Bilateral lower extremity pulses 2+). Absent: calf tenderness, edema - Neurological Exam Neurological exam: Present: alert, oriented X3, normal gait - Psychiatric Psychiatric exam: Present: normal affect, normal mood - Skin Skin exam: Present: normal color, warm, dry. Absent: cyanosis Result/EKG - Labs CBC & BMP: 09/29/16 04:35 09/29/16 04:35 Lab Results: I have reviewed the past 24 hour labs Labs: Laboratory Results - last 24 hr 09/28/16 09/28/16 09/29/16 15:27 20:01 04:35 WBC 10.9 RBC 3.53 L Hgb 9.1 L Hct 28.6 L MCV 81.0 L MCH 26 L MCHC 31.8 L RDW 15.8 Plt Count 230 MPV 9.9 Neut % (Auto) 75.8 H Lymph % (Auto) 10.0 L [place] % (Auto) 7.8 Eos % (Auto) 5.3 Baso % (Auto) 0.6 Neut # (Auto) 8.3 H Lymph # (Auto) 1.1 L [place] # (Auto) 0.9 H Eos # (Auto) 0.6 Baso # (Auto) 0.1 Immature Gran % 0.5 Nucleated RBC % 0.0 Immature Gran # 0.06 Nucleated RBCs # 0.00 Sodium Potassium Chloride Carbon Dioxide Anion Gap BUN Creatinine GFR Calculation BUN/Creatinine Ratio Glucose POC Glucose 205 H 164 H Calculated Osmolality Calcium Magnesium 09/29/16 09/29/16 09/29/16 04:35 07:17 12:21 WBC RBC Hgb Hct MCV MCH MCHC RDW Plt Count MPV Neut % (Auto) Lymph % (Auto) [place] % (Auto) Eos % (Auto) Baso % (Auto) Neut # (Auto) Lymph # (Auto) [place] # (Auto) Eos # (Auto) Baso # (Auto) Immature Gran % Nucleated RBC % Immature Gran # Nucleated RBCs # Sodium 135 L Potassium 4.6 Chloride 101 Carbon Dioxide 20 L Anion Gap 18.6 H BUN 80 H Creatinine 5.30 H GFR Calculation 14 BUN/Creatinine Ratio 15.00 Glucose 147 H POC Glucose 161 H 202 H Calculated Osmolality 296.1 Calcium 8.5 Magnesium 2.6 H <Gelacio Betancourt - Last Filed: 09/29/16 16:03> Cardiology - PN: Subj Interval history: Patient personally interviewed and examined and chart reviewed. Discuss case with Keila Means NUTRITION AIDE. I agree with history as well as examination and assessment. The patient today is stable and comfortable. He has no specific complaints. He continues to be in negative fluid balance. The patient's ejection fraction being normal with probably diastolic dysfunction. This patient has multiple reasons for volume issues including over what overweight lung disease. His diastolic dysfunction may be contributing to this. Certainly his renal dysfunction is an issue but appears to be fairly stable at this time. I will think any further cardiac changes are needed at this time. His vital signs are stable. We will continue to monitor. Exam (Progress Note) - Constitutional Vitals: Period Temp Pulse Resp BP Sys/Maloney Pulse Ox Last 24 Hr 97.4 F-99.2 F 56-73 16-20 105-134/31-69 88-100 Result/EKG - Labs CBC & BMP: 09/29/16 04:35 09/29/16 04:35 Labs: Laboratory Results - last 24 hr 09/28/16 09/29/16 09/29/16 20:01 04:35 04:35 WBC 10.9 RBC 3.53 L Hgb 9.1 L Hct 28.6 L MCV 81.0 L MCH 26 L MCHC 31.8 L RDW 15.8 Plt Count 230 MPV 9.9 Neut % (Auto) 75.8 H Lymph % (Auto) 10.0 L [place] % (Auto) 7.8 Eos % (Auto) 5.3 Baso % (Auto) 0.6 Neut # (Auto) 8.3 H Lymph # (Auto) 1.1 L [place] # (Auto) 0.9 H Eos # (Auto) 0.6 Baso # (Auto) 0.1 Immature Gran % 0.5 Nucleated RBC % 0.0 Immature Gran # 0.06 Nucleated RBCs # 0.00 Sodium 135 L Potassium 4.6 Chloride 101 Carbon Dioxide 20 L Anion Gap 18.6 H BUN 80 H Creatinine 5.30 H GFR Calculation 14 BUN/Creatinine Ratio 15.00 Glucose 147 H POC Glucose 164 H Calculated Osmolality 296.1 Calcium 8.5 Magnesium 2.6 H 09/29/16 09/29/16 09/29/16 07:17 12:21 15:26 WBC RBC Hgb Hct MCV MCH MCHC RDW Plt Count MPV Neut % (Auto) Lymph % (Auto) [place] % (Auto) Eos % (Auto) Baso % (Auto) Neut # (Auto) Lymph # (Auto) [place] # (Auto) Eos # (Auto) Baso # (Auto) Immature Gran % Nucleated RBC % Immature Gran # Nucleated RBCs # Sodium Potassium Chloride Carbon Dioxide Anion Gap BUN Creatinine GFR Calculation BUN/Creatinine Ratio Glucose POC Glucose 161 H 202 H 199 H Calculated Osmolality Calcium Magnesium
--- NOTE | 2016-09-29 15:45 | Nephrology Progress Note ---
Nephrology - PN: Subj Interval history: Shortness of breath improved. No chest pain Exam (PN)-Nephrology - Vital Signs Vital signs: Period Temp Pulse Resp BP Sys/Maloney Pulse Ox Last 24 Hr 97.4 F-99.2 F 56-73 16-20 105-134/46-69 88-98 Exam: ENT: Normal Cardiovascular: Regular rate and rhythm. No murmur rub or gallop Lungs: Clear Extremities: No edema - Lab 09/29/16 04:35 09/29/16 04:35 Most recent lab results Calcium 8.5 MG/DL (8.5-10.1) 09/29/16 04:35 Magnesium 2.6 MG/DL (1.8-2.4) H 09/29/16 04:35 Assessment and Plan (1) Chronic kidney disease, stage IV (severe) Status: Chronic Assessment and plan: 70-year-old man admitted with: * CRF stage IV. Creatinine slightly better today. Fluid balance negative on current diuretic * Diastolic CHF. Normal ejection fraction * Pulmonary hypertension * Prosthetic aortic valve * Diabetes mellitus * COPD. No wheezing today * Hypertension. Blood pressure borderline low. Nifedipine will be decreased to 30 mg daily * Anemia Current Visit: Yes (2) Diastolic CHF Status: Acute Current Visit: Yes (3) Acute exacerbation of chronic obstructive airways disease Status: Resolved Current Visit: Yes (4) Status post aortic valve replacement with bioprosthetic valve Status: Chronic Current Visit: Yes (5) Anemia Status: Chronic Current Visit: No (6) Chronic obstructive pulmonary disease Status: Chronic Current Visit: No (7) Diabetes mellitus Status: Chronic Current Visit: No Qualifiers: Diabetes mellitus type: type 2 Diabetes mellitus complication status: with hyperglycemia Diabetes mellitus prison insulin use: with terminal manager use Qualified Code(s): E11.65 - Type 2 diabetes mellitus with hyperglycemia (8) Hypertension Status: Chronic Current Visit: No
[2016-09-29] MEDS: ATORVASTATIN 40 MG TABLET PO SCH (21:17)
[2016-09-30] MEDS: ALBUTEROL/IPRATROPIUM 3 ML NEB RESP TX SCH ×4 (01:03→20:41)
[2016-09-30 04:24] LABS: Basophils # 0.1 10*3/uL (0.0-0.2); Basophils % 0.7 % (0.0-0.8); Eosinophils # 0.6 10*3/uL (0.0-0.87); Eosinophils % 5.7 % (0.00-10.9); Hematocrit 27.3 VOL% (42.0-52.0); Hemoglobin 8.8 GM/DL (14.0-18.0); Immature Granulocytes % 0.5 %; Immature Granulocytes Absolute 0.05 #; Lymphocytes # 1.2 10*3/uL (1.4-4.0); Lymphocytes % 12.5 % (21.2-54.2); Mean Corpuscular HGB Conc 32.2 GM/DL (32-36); Mean Corpuscular Hemoglobin 26 PG (27-34); Mean Corpuscular Volume 79.6 FL (87-102); Monocytes # 0.9 10*3/uL (0.11-0.8); Monocytes % 9.2 % (1.7-12.7); Neutrophils # 6.9 10*3/uL (1.4-7.4); Neutrophils % 71.4 % (38.7-73.9); Platelet Count 213 T/CUMM (130-400); Red Blood Count 3.43 MC/CUMM (3.8-5.5); Red Cell Distribution Width 15.8 % (9.3-17.3); White Blood Count 9.7 T/CUMM (4-12)
[2016-09-30 05:02] LABS: Calcium 8.4 MG/DL (8.5-10.1); Magnesium 2.5 MG/DL (1.8-2.4); Osmolality,Calculated 299.1 MOS/KG (273-304); Potassium 4.9 MMOL/L (3.5-5.1)
[2016-09-30] MEDS: INSULIN NPH 100 UNIT/ML SUBCUT SCH ×2 (10:30→22:17)
[2016-09-30] MEDS: INSULIN REGULAR 100 UNIT/ML SUBCUT SCH ×4 (10:30→22:19)
[2016-09-30] MEDS: ENOXAPARIN 30 MG/0.3 ML SYRINGE SUBCUT SCH (10:30)
[2016-09-30] MEDS: SODIUM BICARBONATE 650 MG TABLET PO SCH ×2 (10:31→22:20)
[2016-09-30] MEDS: ASPIRIN EC 81 MG TABLET PO SCH (10:31)
[2016-09-30] MEDS: COLCHICINE 0.6 MG TABLET PO SCH (10:31)
[2016-09-30] MEDS: ALLOPURINOL 300 MG TABLET PO SCH (10:32)
[2016-09-30] MEDS: METHOCARBAMOL 750 MG TABLET PO SCH ×4 (10:33→22:20)
[2016-09-30] MEDS: FUROSEMIDE 80 MG TABLET PO SCH (10:33)
[2016-09-30] MEDS: AMIODARONE 200 MG TABLET PO SCH (10:33)
[2016-09-30] MEDS: MAGNESIUM OXIDE 400 MG TABLET PO SCH (10:33)
[2016-09-30] MEDS: METOPROLOL TARTRATE 25 MG TABLET PO SCH ×2 (10:33→22:22)
[2016-09-30] MEDS: PANTOPRAZOLE 40 MG TABLET PO SCH ×2 (10:33→16:42)
[2016-09-30] MEDS: HYDROXYCHLOROQUINE 200 MG TABLET PO SCH (10:33)
--- NOTE | 2016-09-30 11:05 | Cardiology Progress Note ---
<Keila Means - Last Filed: 09/30/16 11:02> Assessment and Plan (1) Diastolic CHF Status: Acute Assessment and plan: Shortness of breath is improving. Receiving p.o. Lasix. Patient needs continued diuresis but he is having issues with increasing creatinine. Nephrology is following, appreciate their recommendations. Avoiding CANDY inhibitor due to fear of worsening renal function. Continue beta-jim. Weight unchanged overnight. Will continue to monitor with daily weights and strict I's and O's. Dr. Betancourt to follow with further recommendations. Current Visit: Yes (2) Acute exacerbation of chronic obstructive airways disease Status: Resolved Current Visit: Yes (3) Chronic kidney disease, stage IV (severe) Status: Chronic Assessment and plan: Management per nephrology. Following their recommendations. Current Visit: Yes (4) Diabetes Status: Chronic Assessment and plan: Management per hospital medicine. Current Visit: Yes (5) Dyslipidemia Status: Chronic Assessment and plan: Continue current plan of care with lipid lowering agent. Current Visit: Yes (6) Obesity Status: Chronic Current Visit: Yes (7) Sleep disorder Status: Chronic Assessment and plan: Dr. Ca has been consulted and he plans for outpatient sleep study. Current Visit: Yes (8) Status post aortic valve replacement with bioprosthetic valve Status: Chronic Assessment and plan: Continue current plan of care. Current Visit: Yes (9) Hypertension Status: Chronic Assessment and plan: This is clinically stable. Continue current plan of care. Current Visit: No (10) Paroxysmal atrial fibrillation Status: Chronic Assessment and plan: Patient is currently in normal sinus rhythm. Continue beta-jim. Continue amiodarone. Further plan and addendum to follow per Dr. Betancourt. Current Visit: Yes (11) First degree heart block Status: Acute Assessment and plan: He continues to be in first degree heart block. Has had no further episodes of second-degree heart block. We will continue to monitor this. Vital signs are stable. Continue current plan of care. Further plan and addendum to follow per Dr. Betancourt. Current Visit: Yes (12) Anemia Status: Chronic Assessment and plan: H&H today 27.3 and 8.8. No overt bleeding noted. Most likely secondary to patient's chronic kidney disease. Defer further management of this to hospital medicine. Current Visit: No Cardiology - PN: Subj Interval history: CREW SCHEDULER: DR. SARAY MARIE PCP: [facility]. DR. RADHA KRISHNAMURTHY Mr. Acosta is a 70 year old male followed by Dr. Marie. Risk factors include : Hypertension, dyslipidemia, diabetes, obesity, sedentary lifestyle, tobaccoism (stopped smoking 3 packs per day 1999). History of aortic valve replacement (tissue valve) [address] Magaña. At that time, he underwent cardiac catheterization which revealed no obstructive coronary artery disease. History atrial fibrillation (no longer taking Eliquis due to cost), known COPD, chronic anemia and chronic renal failure (not previously followed by renal). Echocardiogram September 23, 2016 reveals the following: EF 60%, septal hypokinesis , grade 2 diastolic dysfunction, severe TR with a pulmonary arterial pressure of 65-70 mmHg. Patient presented to the ER September 21, 2016 with chief complaint of shortness of breath. He reportedly has had increasing dyspnea on exertion over the past several months. Patient is currently being treated for acute on chronic congestive heart failure secondary to diastolic dysfunction (ejection fraction noted to be 60%) and acute exacerbation of COPD. He has a history of chronic renal failure. His creatinine has trended up throughout his admission. Nephrology has been consulted to further assist with this. He had recurrent atrial fibrillation that converted chemically with IV amiodarone. He is currently receiving amiodarone p.o. twice daily. Sleep apnea suspected. Dr. Ca is following. Patient is also been mildly anemic this admission. This is thought to be secondary to chronic renal failure. No overt bleeding noted. We will continue to monitor with daily CBC. Patient was seen and examined on the telemetry unit. Patient continues to be stable from a cardiac standpoint. He is without chest pain, heaviness and tightness. No orthopnea. Continues to have mild dyspnea on exertion. He tells me that his breathing continues to improve. Creatinine is today is unchanged at 5.3. Nephrology is following. The recommendations. H&H is stable at 8.8 and 27.3. He continues to receive p.o. Lasix. According to his I 's and O's, weight is unchanged overnight. Vital signs are stable. Patient is in sinus rhythm with heart rates in the 70s without any overt arrhythmias or ectopy. Exam (Progress Note) - Constitutional Vitals: Period Temp Pulse Resp BP Sys/Maloney Pulse Ox Last 24 Hr 97.4 F-98.6 F 56-74 16-20 105-127/31-65 94-100 Exam: General appearance: normal weight, no acute distress - Head Head exam: Present: normal inspection, normocephalic, atraumatic - Neck Neck exam: Present: normal inspection. Absent: lymphadenopathy, tenderness, thyromegaly - Respiratory Respiratory exam: Present: clear to auscultation bilaterally. Absent: accessory muscle use, chest wall tenderness, rales, rhonchi, stridor, wheezes - Cardiovascular Cardiovascular exam: Present: regular rate and rhythm. Absent: gallop, rubs, systolic murmur - GI/Abdominal GI/Abdominal exam: Present: normal bowel sounds, soft. Absent: distended, firm , mass, tenderness - Extremities Exam Extremities exam: Present: normal inspection, normal capillary refill, other ( Bilateral lower extremity pulses 2+). Absent: calf tenderness, edema - Neurological Exam Neurological exam: Present: alert, oriented X3, normal gait - Psychiatric Psychiatric exam: Present: normal affect, normal mood - Skin Skin exam: Present: normal color, warm, dry. Absent: cyanosis Result/EKG - Labs CBC & BMP: 09/30/16 03:47 09/30/16 03:47 Lab Results: I have reviewed the past 24 hour labs Labs: Laboratory Results - last 24 hr 09/29/16 09/29/16 09/29/16 12:21 15:26 19:40 WBC RBC Hgb Hct MCV MCH MCHC RDW Plt Count MPV Neut % (Auto) Lymph % (Auto) Mcdowell % (Auto) Eos % (Auto) Baso % (Auto) Neut # (Auto) Lymph # (Auto) Mcdowell # (Auto) Eos # (Auto) Baso # (Auto) Immature Gran % Nucleated RBC % Immature Gran # Nucleated RBCs # Sodium Potassium Chloride Carbon Dioxide Anion Gap BUN Creatinine GFR Calculation BUN/Creatinine Ratio Glucose POC Glucose 202 H 199 H 230 H Calculated Osmolality Calcium Magnesium 09/30/16 09/30/16 09/30/16 03:47 03:47 07:32 WBC 9.7 RBC 3.43 L Hgb 8.8 L Hct 27.3 L MCV 79.6 L MCH 26 L MCHC 32.2 RDW 15.8 Plt Count 213 MPV 10.0 Neut % (Auto) 71.4 Lymph % (Auto) 12.5 L Mcdowell % (Auto) 9.2 Eos % (Auto) 5.7 Baso % (Auto) 0.7 Neut # (Auto) 6.9 Lymph # (Auto) 1.2 L Mcdowell # (Auto) 0.9 H Eos # (Auto) 0.6 Baso # (Auto) 0.1 Immature Gran % 0.5 Nucleated RBC % 0.0 Immature Gran # 0.05 Nucleated RBCs # 0.00 Sodium 135 L Potassium 4.9 Chloride 102 Carbon Dioxide 22 Anion Gap 15.9 H BUN 81 H Creatinine 5.30 H GFR Calculation 14 BUN/Creatinine Ratio 15.00 Glucose 203 H POC Glucose 190 H Calculated Osmolality 299.1 Calcium 8.4 L Magnesium 2.5 H <Gelacio Betancourt - Last Filed: 09/30/16 17:50> Cardiology - PN: Subj Interval history: Patient personally interviewed and examined by me and chart reviewed. I reviewed the case with Keila Means NUCLEAR PHYSICS TEACHER. I agree with the assessment and plan. In summation in addition the patient continues to have a small but negative fluid balance. His creatinine has remained stable as has his BUN over the last few days. He has no cardiac complaints or symptoms. His biggest issues from our standpoint is probably an element of diastolic dysfunction with severe TR for pulmonary hypertension that is severe. He is being treated. At this time he is probably nearing discharge since he is reaching maximum hospital benefit. If he continues to have poor hypertension evaluation by pulmonary medicine may be indicated. Exam (Progress Note) - Constitutional Vitals: Period Temp Pulse Resp BP Sys/Maloney Pulse Ox Last 24 Hr 97.8 F-98.7 F 62-74 16-20 106-158/39-70 90-99 Result/EKG - Labs CBC & BMP: 09/30/16 03:47 09/30/16 03:47 Labs: Laboratory Results - last 24 hr 09/29/16 09/30/16 09/30/16 19:40 03:47 03:47 WBC 9.7 RBC 3.43 L Hgb 8.8 L Hct 27.3 L MCV 79.6 L MCH 26 L MCHC 32.2 RDW 15.8 Plt Count 213 MPV 10.0 Neut % (Auto) 71.4 Lymph % (Auto) 12.5 L Mcdowell % (Auto) 9.2 Eos % (Auto) 5.7 Baso % (Auto) 0.7 Neut # (Auto) 6.9 Lymph # (Auto) 1.2 L Mcdowell # (Auto) 0.9 H Eos # (Auto) 0.6 Baso # (Auto) 0.1 Immature Gran % 0.5 Nucleated RBC % 0.0 Immature Gran # 0.05 Nucleated RBCs # 0.00 Sodium 135 L Potassium 4.9 Chloride 102 Carbon Dioxide 22 Anion Gap 15.9 H BUN 81 H Creatinine 5.30 H GFR Calculation 14 BUN/Creatinine Ratio 15.00 Glucose 203 H POC Glucose 230 H Calculated Osmolality 299.1 Calcium 8.4 L Magnesium 2.5 H 09/30/16 09/30/16 09/30/16 07:32 11:40 15:32 WBC RBC Hgb Hct MCV MCH MCHC RDW Plt Count MPV Neut % (Auto) Lymph % (Auto) Mcdowell % (Auto) Eos % (Auto) Baso % (Auto) Neut # (Auto) Lymph # (Auto) Mcdowell # (Auto) Eos # (Auto) Baso # (Auto) Immature Gran % Nucleated RBC % Immature Gran # Nucleated RBCs # Sodium Potassium Chloride Carbon Dioxide Anion Gap BUN Creatinine GFR Calculation BUN/Creatinine Ratio Glucose POC Glucose 190 H 272 H 243 H Calculated Osmolality Calcium Magnesium
--- NOTE | 2016-09-30 12:34 | Hospitalist Progress Note ---
Assessment and Plan (1) Chronic obstructive pulmonary disease Status: Chronic Current Visit: No (2) Diabetes mellitus Status: Chronic Current Visit: No Qualifiers: Diabetes mellitus type: type 2 Diabetes mellitus complication status: with hyperglycemia Diabetes mellitus rn long term care insulin use: with prison use Qualified Code(s): E11.65 - Type 2 diabetes mellitus with hyperglycemia (3) MEGAN (acute kidney injury) Status: Resolved Assessment and plan: Clinically improving but with worsening Cr. We will hold nephrotoxic meds and help reduce the effect of lasix on the kidneys. Hold Colchicin and Allopurinol for now. Restart if renal function improves. Diuresis management per renal Increase Lantus to 20 units BID and monitor FSG Cardiology follow up Current Visit: No (4) Chronic kidney disease, stage IV (severe) Status: Chronic Current Visit: Yes Hospitalist: Subjective Interval history: Admitted for respiratory failure due to fluid overload, started on Lasix but switched to p.o because of rising Cr. Nephrology is following with management of diuresis. He says his shortness of breath has improved some. No fever, no chest pain or palpitation. Exam - Constitutional Vitals: Period Temp Pulse Resp BP Sys/Maloney Pulse Ox Last 24 Hr 97.8 F-98.6 F 56-74 16-20 106-136/31-68 92-100 Exam: General appearance: over weight - Head Head exam: Present: normocephalic, atraumatic - Eye Eye exam: Present: EOMI Pupils: Present: TAMIA - ENT ENT exam: Present: normal exam - Neck Neck exam: Present: normal inspection - Respiratory Respiratory exam: Difficult auscultation because of body habitus, transmitted sound and some crackles - Cardiovascular Cardiovascular exam: Present: regular rate and rhythm - GI/Abdominal GI/Abdominal exam: Present: normal bowel sounds, soft. Absent: tenderness, rebound - Extremities Exam Extremities exam: No edema - Back Exam Back exam: Present: normal inspection - Neurological Exam Neurological exam: Present: alert, oriented X3 - Psychiatric Psychiatric exam: Present: normal affect, normal mood - Skin Skin exam: Present: warm, intact Results - Labs CBC & BMP: 09/30/16 03:47 09/30/16 03:47 Lab Results: I have reviewed the past 24 hour labs
--- NOTE | 2016-09-30 13:13 | Nephrology Progress Note ---
Nephrology - PN: Subj Interval history: Shortness of breath improved. No new symptoms Exam (PN)-Nephrology - Vital Signs Vital signs: Period Temp Pulse Resp BP Sys/Maloney Pulse Ox Last 24 Hr 97.8 F-98.6 F 56-74 16-20 106-136/31-68 92-100 Exam: ENT: Normal Cardiovascular: Regular rate and rhythm. No murmur rub or gallop Lungs: Clear Extremities: No edema - Lab 09/30/16 03:47 09/30/16 03:47 Most recent lab results Calcium 8.4 MG/DL (8.5-10.1) L 09/30/16 03:47 Magnesium 2.5 MG/DL (1.8-2.4) H 09/30/16 03:47 Assessment and Plan (1) Chronic kidney disease, stage IV (severe) Status: Chronic Assessment and plan: 70-year-old man admitted with: * CRF stage IV. Creatinine stable. Fluid balance negative on current diuretic * Diastolic CHF. Normal ejection fraction. Volume status improved * Pulmonary hypertension * Prosthetic aortic valve * Diabetes mellitus * COPD. No wheezing today * Hypertension. Controlled * Anemia Current Visit: Yes (2) Diastolic CHF Status: Acute Current Visit: Yes (3) Acute exacerbation of chronic obstructive airways disease Status: Resolved Current Visit: Yes (4) Status post aortic valve replacement with bioprosthetic valve Status: Chronic Current Visit: Yes (5) Anemia Status: Chronic Current Visit: No (6) Chronic obstructive pulmonary disease Status: Chronic Current Visit: No (7) Diabetes mellitus Status: Chronic Current Visit: No Qualifiers: Diabetes mellitus type: type 2 Diabetes mellitus complication status: with hyperglycemia Diabetes mellitus exterminator helper insulin use: with fci use Qualified Code(s): E11.65 - Type 2 diabetes mellitus with hyperglycemia (8) Hypertension Status: Chronic Current Visit: No
[2016-09-30] MEDS: ATORVASTATIN 40 MG TABLET PO SCH (22:21)
[2016-09-30] MEDS: SIMETHICONE CHEW 125 MG TABLET PO PRN (23:50)
[2016-10-01] MEDS: ALBUTEROL/IPRATROPIUM 3 ML NEB RESP TX SCH ×4 (00:36→20:53)
[2016-10-01] MEDS ORDERED: BISACODYL 5 MG TABLET PO ONE (08:36)
[2016-10-01] MEDS: ENOXAPARIN 30 MG/0.3 ML SYRINGE SUBCUT SCH (09:33)
[2016-10-01] MEDS: INSULIN NPH 100 UNIT/ML SUBCUT SCH ×2 (09:33→22:02)
[2016-10-01] MEDS: LACTULOSE 20 GM/30 ML UDCUP PO PRN (09:33)
[2016-10-01] MEDS: INSULIN REGULAR 100 UNIT/ML SUBCUT SCH ×4 (09:33→22:09)
[2016-10-01] MEDS: METHOCARBAMOL 750 MG TABLET PO SCH ×4 (09:34→22:02)
[2016-10-01] MEDS: PANTOPRAZOLE 40 MG TABLET PO SCH ×2 (09:34→16:55)
[2016-10-01] MEDS: MAGNESIUM OXIDE 400 MG TABLET PO SCH (09:34)
[2016-10-01] MEDS: ASPIRIN EC 81 MG TABLET PO SCH (09:34)
[2016-10-01] MEDS: DOCUSATE SODIUM 100 MG CAPSULE PO SCH ×2 (09:34→22:02)
[2016-10-01] MEDS: METOPROLOL TARTRATE 25 MG TABLET PO SCH ×2 (09:34→22:04)
[2016-10-01] MEDS: FUROSEMIDE 80 MG TABLET PO SCH (09:34)
[2016-10-01] MEDS: AMIODARONE 200 MG TABLET PO SCH (09:34)
[2016-10-01] MEDS: SODIUM BICARBONATE 650 MG TABLET PO SCH ×2 (09:37→22:04)
--- NOTE | 2016-10-01 10:02 | Hospitalist Progress Note ---
Assessment and Plan - Time spent with patient Time spent with patient: Greater than 30 minutes (1) Chronic obstructive pulmonary disease Status: Chronic Current Visit: No (2) Diabetes mellitus Status: Chronic Current Visit: No Qualifiers: Diabetes mellitus type: type 2 Diabetes mellitus complication status: with hyperglycemia Diabetes mellitus fci insulin use: with fci use Qualified Code(s): E11.65 - Type 2 diabetes mellitus with hyperglycemia (3) MEGAN (acute kidney injury) Status: Resolved Assessment and plan: Clinically improving but no new labs to see what her renal function looks like today. We will continue to hold nephrotoxic meds and monitor renal function. Check BMP now and daily Diuresis and fluid management per renal Increase Lantus to 20 units BID and monitor FSG Cardiology follow up DVT prophylaxis Consult physical therapy Current Visit: No (4) Chronic kidney disease, stage IV (severe) Status: Chronic Current Visit: Yes Hospitalist: Subjective Interval history: His respiratory status continues to improve slowly. He however has significant diminished functional capacity. Report significant shortness of breath just by going to the bathroom. PT has been consulted by renal, appreciated No new labs to see the progress of his renal function while on oral Lasix. Blood sugars are improved, go up slightly on insulin for better control. No fever Exam - Constitutional Vitals: Period Temp Pulse Resp BP Sys/Maloney Pulse Ox Last 24 Hr 97.7 F-98.7 F 62-78 16-20 108-158/54-70 90-99 Exam: General appearance: over weight - Head Head exam: Present: normocephalic, atraumatic - Eye Eye exam: Present: EOMI Pupils: Present: TAMIA - ENT ENT exam: Present: normal exam - Neck Neck exam: Present: normal inspection - Respiratory Respiratory exam: Difficult auscultation because of body habitus, transmitted sound and some crackles - Cardiovascular Cardiovascular exam: Present: regular rate and rhythm - GI/Abdominal GI/Abdominal exam: Present: normal bowel sounds, soft. Absent: tenderness, rebound - Extremities Exam Extremities exam: No edema - Back Exam Back exam: Present: normal inspection - Neurological Exam Neurological exam: Present: alert, oriented X3 - Psychiatric Psychiatric exam: Present: normal affect, normal mood - Skin Skin exam: Present: warm, intact Results - Labs CBC & BMP: 09/30/16 03:47 09/30/16 03:47 Lab Results: I have reviewed the past 24 hour labs
[2016-10-01 10:48] LABS: Calcium 8.4 MG/DL (8.5-10.1); Osmolality,Calculated 299.1 MOS/KG (273-304); Potassium 5.2 MMOL/L (3.5-5.1)
--- NOTE | 2016-10-01 13:22 | Nephrology Progress Note ---
Nephrology - PN: Subj Interval history: Patient is resting comfortably no acute changes. Serum creatinine is noted to be 5.0. He said on Monday. However mentions that he would like some physical therapy. Feel that the patient would benefit from this. Patient also complains of some constipation. Will give Dulcolax as needed Colace twice daily. Exam (PN)-Nephrology - Vital Signs Vital signs: Period Temp Pulse Resp BP Sys/Maloney Pulse Ox Last 24 Hr 97.1 F-98.7 F 62-78 16-20 108-158/54-70 90-99 - General Appearance General appearance: well-developed, well-nourished EENT: ATNC Neck: supple Respiratory: clear Cardiology: no edema, regular rate, regular rhythm Gastrointestinal: normoactive bowel sounds, no tenderness Neurologic: alert and oriented x3 Musculoskeletal: no erythema, no clubbing Psychiatric: mood/affect appropriate - Lab 09/30/16 03:47 10/01/16 09:53 Most recent lab results Calcium 8.4 MG/DL (8.5-10.1) L 10/01/16 09:53 Magnesium 2.5 MG/DL (1.8-2.4) H 09/30/16 03:47 Assessment and Plan (1) Chronic obstructive pulmonary disease Status: Chronic Current Visit: No (2) Diabetes mellitus Status: Chronic Current Visit: No Qualifiers: Diabetes mellitus type: type 2 Diabetes mellitus complication status: with hyperglycemia Diabetes mellitus terminal system operator insulin use: with usp use Qualified Code(s): E11.65 - Type 2 diabetes mellitus with hyperglycemia (3) Renal insufficiency Status: Chronic Current Visit: No (4) CKD (chronic kidney disease) Status: Chronic Current Visit: Yes Qualifiers: Chronic kidney disease stage: stage 4 (severe) Qualified Code(s): N18.4 - Chronic kidney disease, stage 4 (severe) (5) Obesity Status: Chronic Current Visit: Yes (6) Chronic kidney disease, stage IV (severe) Status: Chronic Current Visit: Yes
[2016-10-01] MEDS: SIMETHICONE CHEW 125 MG TABLET PO PRN (13:26)
--- NOTE | 2016-10-01 14:26 | Cardiology Progress Note ---
Assessment and Plan (1) Diastolic CHF Status: Chronic Assessment and plan: This is clinically stable with this time. Current Visit: Yes (2) Obesity Status: Chronic Assessment and plan: Weight loss of be of great benefit the patient thinks that motivated. Current Visit: Yes (3) Chronic kidney disease, stage IV (severe) Status: Chronic Assessment and plan: This is followed by nephrology. Current Visit: Yes (4) Paroxysmal atrial fibrillation Status: Chronic Assessment and plan: This is a recent issue he remains in sinus rhythm. Current Visit: Yes (5) First degree heart block Status: Chronic Assessment and plan: This is chronic and unchanged. Current Visit: Yes (6) Sleep disorder Status: Chronic Current Visit: Yes Cardiology - PN: Subj Interval history: Patient is doing well. Sitting up in a chair today. He denies any shortness of breath or chest pain. He is a little weak generally. His creatinine continues to decrease and his BUN is a little better today. He continues to be a negative fluid balance. From cardiac standpoint he continues to be stable. No further evaluation needed at this time. Hopefully will be in to go home soon and circumflex to be discharged from our standpoint. Exam (Progress Note) - Constitutional Vitals: Period Temp Pulse Resp BP Sys/Maloney Pulse Ox Last 24 Hr 97.1 F-98.7 F 62-78 16-20 108-158/54-70 90-99 Exam: General appearance: Obese, no acute distress HEENT exam: normal inspection, atraumatic Neck exam: normal inspection no JVD. No carotid bruit. Trachea is in midline Respiratory/lungs exam: clear to auscultation bilaterally good air movement. Cardiovascular exam: regular rate and rhythm, no murmur or gallop or rub. No precordial lift. Chest wall exam: nontender GI/Abdominal exam: normal bowel sounds, soft, nontender, no abdominal bruits or pulsatile masses. Extremeties/musculoskeletal: normal inspection without edema or cyanosis. Neurological exam: alert, oriented X3, no focal deficits Psychiatric exam: normal affect, normal mood. Cognitive function is grossly normal. Skin exam: normal color, warm Result/EKG - Labs CBC & BMP: 09/30/16 03:47 10/01/16 09:53 Lab Results: I have reviewed the past 24 hour labs Labs: Laboratory Results - last 24 hr 09/30/16 09/30/16 10/01/16 15:32 19:55 08:07 Sodium Potassium Chloride Carbon Dioxide Anion Gap BUN Creatinine GFR Calculation BUN/Creatinine Ratio Glucose POC Glucose 243 H 202 H 189 H Calculated Osmolality Calcium 10/01/16 10/01/16 09:53 11:44 Sodium 135 L Potassium 5.2 H Chloride 101 Carbon Dioxide 23 Anion Gap 16.2 H BUN 79 H Creatinine 5.00 H GFR Calculation 15 BUN/Creatinine Ratio 15.00 Glucose 208 H POC Glucose 169 H Calculated Osmolality 299.1 Calcium 8.4 L - Impressions Impressions: Telemetry normal sinus rhythm and no dysrhythmias.
[2016-10-01] MEDS: ATORVASTATIN 40 MG TABLET PO SCH (22:02)
[2016-10-02] MEDS: ALBUTEROL/IPRATROPIUM 3 ML NEB RESP TX SCH ×4 (01:20→20:38)
[2016-10-02 06:39] LABS: Calcium 8.7 MG/DL (8.5-10.1); Osmolality,Calculated 298.8 MOS/KG (273-304); Potassium 5.2 MMOL/L (3.5-5.1)
--- NOTE | 2016-10-02 09:13 | Nephrology Progress Note ---
Nephrology - PN: Subj Interval history: The patient is resting sitting up on side of the bed doing fine. Serum creatinine is noted to be 4.7 which is stable from yesterday. Hemodynamics are stable. No other acute changes. Exam (PN)-Nephrology - Vital Signs Vital signs: Period Temp Pulse Resp BP Sys/Maloney Pulse Ox Last 24 Hr 97.1 F-99.2 F 55-88 16-20 118-141/40-72 90-99 - General Appearance General appearance: well-developed, well-nourished EENT: ATNC Neck: supple Respiratory: clear Cardiology: no edema, regular rate, regular rhythm Gastrointestinal: normoactive bowel sounds, no tenderness Neurologic: alert and oriented x3, CN 3-12 intact Musculoskeletal: no clubbing - Lab 09/30/16 03:47 10/02/16 05:28 Most recent lab results Calcium 8.7 MG/DL (8.5-10.1) 10/02/16 05:28 Magnesium 2.5 MG/DL (1.8-2.4) H 09/30/16 03:47 Assessment and Plan (1) Chronic obstructive pulmonary disease Status: Chronic Current Visit: No (2) Diabetes mellitus Status: Chronic Current Visit: No Qualifiers: Diabetes mellitus type: type 2 Diabetes mellitus complication status: with hyperglycemia Diabetes mellitus adjunct faculty for medical terminology insulin use: with adjunct faculty for medical terminology use Qualified Code(s): E11.65 - Type 2 diabetes mellitus with hyperglycemia (3) Renal insufficiency Status: Chronic Current Visit: No (4) CKD (chronic kidney disease) Status: Chronic Current Visit: Yes Qualifiers: Chronic kidney disease stage: stage 4 (severe) Qualified Code(s): N18.4 - Chronic kidney disease, stage 4 (severe) (5) Obesity Status: Chronic Current Visit: Yes (6) Chronic kidney disease, stage IV (severe) Status: Chronic Current Visit: Yes
[2016-10-02] MEDS: INSULIN NPH 100 UNIT/ML SUBCUT SCH ×2 (09:27→21:11)
[2016-10-02] MEDS: ENOXAPARIN 30 MG/0.3 ML SYRINGE SUBCUT SCH (09:27)
[2016-10-02] MEDS: DOCUSATE SODIUM 100 MG CAPSULE PO SCH ×2 (09:28→21:15)
[2016-10-02] MEDS: FUROSEMIDE 80 MG TABLET PO SCH (09:28)
[2016-10-02] MEDS: AMIODARONE 200 MG TABLET PO SCH (09:28)
[2016-10-02] MEDS: ASPIRIN EC 81 MG TABLET PO SCH (09:28)
[2016-10-02] MEDS: METHOCARBAMOL 750 MG TABLET PO SCH ×4 (09:28→21:10)
[2016-10-02] MEDS: HYDROXYCHLOROQUINE 200 MG TABLET PO SCH (09:28)
[2016-10-02] MEDS: SODIUM BICARBONATE 650 MG TABLET PO SCH ×2 (09:28→21:10)
[2016-10-02] MEDS: INSULIN REGULAR 100 UNIT/ML SUBCUT SCH ×4 (09:29→21:15)
[2016-10-02] MEDS: PANTOPRAZOLE 40 MG TABLET PO SCH ×2 (09:29→16:57)
[2016-10-02] MEDS: MAGNESIUM OXIDE 400 MG TABLET PO SCH (09:29)
[2016-10-02] MEDS: METOPROLOL TARTRATE 25 MG TABLET PO SCH ×2 (09:29→21:10)
--- NOTE | 2016-10-02 11:18 | Hospitalist Progress Note ---
Assessment and Plan - Time spent with patient Time spent with patient: Greater than 30 minutes (1) Chronic obstructive pulmonary disease Status: Chronic Assessment and plan: In respiratory failure due to COPD/fluid overload. Responding to respiratory therapy and diuresis. Continue physical and occupational therapy. Current Visit: No (2) Diabetes mellitus Status: Chronic Assessment and plan: Blood glucose slightly improved, but still suboptimal therefore we will go up on his insulin doses. Increase to 25 units of NPH insulin twice daily Monitor fingerstick glucose. 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 On Lasix, monitor urine output. Monitor serum creatinine. If the rest of his clinical conditions continued to improve and her renal function remains stable and does not improve any further. We may be able to discharge him to 24 -48 hours if okay with nephrology Current Visit: Yes Hospitalist: Subjective Interval history: He continues to show symptomatic improvement. He states that he is shortness of breath on exertion has improved slightly. He is usually on 4 L of oxygen at home, he has now been weaned down to 2 L and saturating well. His renal function appears to have reached a steady state, only minimal improvement. I wonder if this is his new baseline. Mild hyperkalemia with no EKG changes. If there is no further improvement to his renal function and his functional capacity continues to improve. May be able to discharge in the next 24-48 hours. He however has declined being discharged to a rehab facility. Exam - Constitutional Vitals: Period Temp Pulse Resp BP Sys/Maloney Pulse Ox Last 24 Hr 97.1 F-99.2 F 55-88 16-20 118-141/40-72 90-99 Exam: General appearance: over weight. Sitting up in chair in no obvious distress. - Head Head exam: Present: normocephalic, atraumatic - Eye Eye exam: Present: EOMI Pupils: Present: TAMIA - ENT ENT exam: Present: normal exam - Neck Neck exam: Present: normal inspection - Respiratory Respiratory exam: Difficult auscultation because of body habitus. Bilateral, no crackles - Cardiovascular Cardiovascular exam: Present: regular rate and rhythm - GI/Abdominal GI/Abdominal exam: Present: normal bowel sounds, soft. Absent: tenderness, rebound - Extremities Exam Extremities exam: No edema - Back Exam Back exam: Present: normal inspection - Neurological Exam Neurological exam: Present: alert, oriented X3 - Psychiatric Psychiatric exam: Present: normal affect, normal mood - Skin Skin exam: Present: warm, intact Results - Labs CBC & BMP: 09/30/16 03:47 10/02/16 05:28 Lab Results: I have reviewed the past 24 hour labs
--- NOTE | 2016-10-02 15:26 | Cardiology Progress Note ---
Assessment and Plan (1) Diastolic CHF Status: Chronic Assessment and plan: Clinically this is remaining stable Current Visit: Yes (2) Obesity Status: Chronic Assessment and plan: Is weight loss but I think he is stable but I don't think he's that motivated. Current Visit: Yes (3) Chronic kidney disease, stage IV (severe) Status: Chronic Assessment and plan: This is followed by nephrology. Current Visit: Yes (4) Paroxysmal atrial fibrillation Status: Chronic Assessment and plan: This is a recent issue he remains in sinus rhythm. Current Visit: Yes (5) First degree heart block Status: Chronic Assessment and plan: This is chronic and unchanged. Current Visit: Yes (6) Sleep disorder Status: Chronic Current Visit: Yes Cardiology - PN: Subj Interval history: General the patient is done fairly well. He is creatinine and renal functions not changed much but his creatinine has dropped from 5.0-4.7. He is comfortable. He fatigues easily and dyspneic on exertion. His rhythm remained sinus. Patient may need postdischarge rehabilitation or swelling bed. Exam (Progress Note) - Constitutional Vitals: Period Temp Pulse Resp BP Sys/Maloney Pulse Ox Last 24 Hr 97.3 F-99.2 F 55-88 16-20 118-152/40-72 90-99 Exam: General appearance: Obese, no acute distress HEENT exam: normal inspection, atraumatic Neck exam: normal inspection no JVD. No carotid bruit. Trachea is in midline Respiratory/lungs exam: clear to auscultation bilaterally good air movement. Cardiovascular exam: regular rate and rhythm, no murmur or gallop or rub. No precordial lift. Chest wall exam: nontender GI/Abdominal exam: normal bowel sounds, soft, nontender, no abdominal bruits or pulsatile masses. Extremeties/musculoskeletal: normal inspection without edema or cyanosis. Neurological exam: alert, oriented X3, no focal deficits Psychiatric exam: normal affect, normal mood. Cognitive function is grossly normal. Skin exam: normal color, warm Result/EKG - Labs CBC & BMP: 09/30/16 03:47 10/02/16 05:28 Lab Results: I have reviewed the past 24 hour labs Labs: Laboratory Results - last 24 hr 10/01/16 10/01/16 10/02/16 15:31 21:59 05:28 Sodium 137 Potassium 5.2 H Chloride 102 Carbon Dioxide 24 Anion Gap 16.2 H BUN 79 H Creatinine 4.70 H GFR Calculation 16 BUN/Creatinine Ratio 16.00 Glucose 140 H POC Glucose 198 H 206 H Calculated Osmolality 298.8 Calcium 8.7 10/02/16 12:21 Sodium Potassium Chloride Carbon Dioxide Anion Gap BUN Creatinine GFR Calculation BUN/Creatinine Ratio Glucose POC Glucose 185 H Calculated Osmolality Calcium - Impressions Impressions: Telemetry continues to be in sinus rhythm.
[2016-10-02] MEDS: ATORVASTATIN 40 MG TABLET PO SCH (21:10)
[2016-10-03] MEDS: ALBUTEROL/IPRATROPIUM 3 ML NEB RESP TX SCH ×3 (00:32→11:55)
[2016-10-03 05:46] LABS: Calcium 8.9 MG/DL (8.5-10.1); Osmolality,Calculated 292.2 MOS/KG (273-304); Potassium 4.7 MMOL/L (3.5-5.1)
[2016-10-03] MEDS: INSULIN REGULAR 100 UNIT/ML SUBCUT SCH ×2 (08:52→14:25)
[2016-10-03] MEDS: MAGNESIUM OXIDE 400 MG TABLET PO SCH (08:53)
[2016-10-03] MEDS: PANTOPRAZOLE 40 MG TABLET PO SCH (08:53)
[2016-10-03] MEDS: METHOCARBAMOL 750 MG TABLET PO SCH ×2 (08:53→14:26)
[2016-10-03] MEDS: ASPIRIN EC 81 MG TABLET PO SCH (08:53)
[2016-10-03] MEDS: FUROSEMIDE 80 MG TABLET PO SCH (08:53)
[2016-10-03] MEDS: METOPROLOL TARTRATE 25 MG TABLET PO SCH (08:54)
[2016-10-03] MEDS: SODIUM BICARBONATE 650 MG TABLET PO SCH (08:54)
[2016-10-03] MEDS: DOCUSATE SODIUM 100 MG CAPSULE PO SCH (08:54)
[2016-10-03] MEDS: AMIODARONE 200 MG TABLET PO SCH (08:54)
[2016-10-03] MEDS: ENOXAPARIN 30 MG/0.3 ML SYRINGE SUBCUT SCH (08:55)
[2016-10-03] MEDS: INSULIN NPH 100 UNIT/ML SUBCUT SCH (08:55)
--- NOTE | 2016-10-03 11:21 | Nephrology Progress Note ---
Nephrology - PN: Subj Interval history: No shortness of breath at rest. He has persistent HALE Exam (PN)-Nephrology - Vital Signs Vital signs: Period Temp Pulse Resp BP Sys/Maloney Pulse Ox Last 24 Hr 97.4 F-98.7 F 64-71 17-22 117-152/53-72 92-99 Exam: ENT: Normal Cardiovascular: Regular rate and rhythm. No murmur rub or gallop Lungs: Clear Extremities: No edema - Lab 09/30/16 03:47 10/03/16 04:14 Most recent lab results Calcium 8.9 MG/DL (8.5-10.1) 10/03/16 04:14 Magnesium 2.5 MG/DL (1.8-2.4) H 09/30/16 03:47 Assessment and Plan (1) Chronic kidney disease, stage IV (severe) Status: Chronic Assessment and plan: 70-year-old man admitted with: * CRF stage IV. Creatinine improved. Fluid balance negative on current diuretic * Diastolic CHF. Normal ejection fraction. Volume status is improving * Pulmonary hypertension * Prosthetic aortic valve * Diabetes mellitus * COPD. No wheezing today * Hypertension. Controlled * Anemia Current Visit: Yes (2) Diastolic CHF Status: Chronic Current Visit: Yes (3) Acute exacerbation of chronic obstructive airways disease Status: Resolved Current Visit: Yes (4) Status post aortic valve replacement with bioprosthetic valve Status: Chronic Current Visit: Yes (5) Anemia Status: Chronic Current Visit: No (6) Chronic obstructive pulmonary disease Status: Chronic Current Visit: No (7) Diabetes mellitus Status: Chronic Current Visit: No Qualifiers: Diabetes mellitus type: type 2 Diabetes mellitus complication status: with hyperglycemia Diabetes mellitus half-way insulin 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
--- NOTE | 2016-10-03 12:04 | Discharge Summary ---
Hospital Course - Hospital Course Hospital Course: Mr. Acosta was admitted on the above admit date with significant SOB and HALE, thought to be multifactorial in origin 2/2 and acute exacerbation of CHF ( diastolic dysfunction; EF of 60%) as well as an acute exacerbation of COPD. He was initially diuresed with IV diuretics and breathing treatments. No steroids were given due the reported history of a steroid allergy. Patient reports being on 4L O2 NBP at home, however, on evalution today, he is breathing comfortably with adequate sats in the upper 90's on 2L. He denies problems with dyspnea and states that he feels well. He has been transitioned to oral furosemide and treated for COPD with duonebs alone. Vitals have been stable and clinical exam has normalized, with the absence of wheezing and very minimal/faint crackles at the left base. He is clinically improved and has reached maximal benefit of this hospitalization. He is ready for discharge home. Diagnosis - Discharge Diagnosis (1) Anemia Status: Chronic (2) Acute exacerbation of chronic obstructive airways disease Status: Resolved (3) Dyslipidemia Status: Chronic (4) Diabetes Status: Chronic (5) Sleep disorder Status: Chronic (6) Obesity Status: Chronic (7) Chronic kidney disease, stage IV (severe) Status: Chronic (8) Diastolic CHF Status: Chronic Discharge Plan - Discharge Data Disposition: Disch To Home/Self Care Condition at Discharge: Stable Discharge Diet: heart healthy Activity: increase activity as tolerated Hygiene: no restrictions Weight Bearing at Discharge: full weight bearing Driving: no restrictions Contact your physician if you experience:: Shortness of breath - Discharge Medications No Action Omeprazole [Prilosec] 20 mg PO BID W/MEALS Hydrocodone/Acetaminophen [Hydrocodon-Acetaminophn 10-325] 1 each PO Q8H PRN PRN Reason: Pain Atorvastatin Calcium [Lipitor] 40 mg PO DAILY Methocarbamol Tab [Robaxin Tab] 750 mg PO QID Hydroxychloroquine Sulfate 200 mg PO QOTHER DAY Magnesium Oxide 420 mg PO DAILY Colchicine 0.5 tablet PO QOTHER DAY #0 Allopurinol [Zyloprim] 150 mg PO DAILY #30 mg Aspirin [Ecotrin] 81 mg PO DAILY #100 tablet.dr Furosemide Tab [Lasix Tab] 40 mg PO DAILY W/BREAKFAST #30 tablet Metoprolol Tartrate 25 mg PO BID #100 tablet NIFEdipine [Nifedipine ER] 60 mg PO DAILY #120 tablet.er Sodium Bicarb Tab 325 mg PO BID Insulin Glargine [Lantus] 100 unit SUBCUT DAILY Pregabalin [Lyrica] 150 mg PO DAILY - Follow Up or Referral - Forms/Instructions Exam - Constitutional Vitals: Period Temp Pulse Resp BP Sys/Maloney Pulse Ox Last 24 Hr 97.4 F-98.7 F 64-71 17-22 117-152/53-72 92-99 General appearance: no acute distress, morbidly obese - Head Head exam: Present: normal inspection, normocephalic, atraumatic - Eye Eye exam: Present: EOMI. Absent: scleral icterus - Neck Neck exam: Present: normal inspection. Absent: lymphadenopathy - Respiratory Respiratory exam: Present: clear to auscultation bilaterally (Very faint crackles in the right lower base. Otherwise CTA.). Absent: wheezes - Cardiovascular Cardiovascular exam: Present: regular rate and rhythm. Absent: gallop, rubs - GI/Abdominal GI/Abdominal exam: Present: normal bowel sounds, soft. Absent: ascites - Neurological Exam Neurological exam: Present: alert, oriented X3, CN II-XII intact Discharge Results Procedures and tests throughout hospitalization: Pending Orders 10/01/16 17:15 Occult Blood, Stool Routine 10/04/16 04:00 BMP [Basic Metabolic Panel] IN AM Labs on day of discharge: Labs from last 24 hours 10/03/16 10/03/16 10/03/16 11:28 07:28 04:14 Sodium 134 L Potassium 4.7 Chloride 100 Carbon Dioxide 22 Anion Gap 16.7 H BUN 76 H Creatinine 4.60 H GFR Calculation 17 BUN/Creatinine Ratio 16.00 Glucose 132 H POC Glucose 208 H 149 H Calculated Osmolality 292.2 Calcium 8.9 10/02/16 10/02/16 10/02/16 20:03 16:01 12:21 Sodium Potassium Chloride Carbon Dioxide Anion Gap BUN Creatinine GFR Calculation BUN/Creatinine Ratio Glucose POC Glucose 176 H 167 H 185 H Calculated Osmolality Calcium 10/02/16 08:14 Sodium Potassium Chloride Carbon Dioxide Anion Gap BUN Creatinine GFR Calculation BUN/Creatinine Ratio Glucose POC Glucose 139 H Calculated Osmolality Calcium DS: Provider Date of admission: 09/21/16 23:30 Primary care physician: . No PCP Attending physician on admission: Yolis Costello MD Consults: 09/22/16 00:40 Consult to Physician [CONS] Routine Comment: copd Consulting Provider: Blair Brizuela Consult to Specialist Group: Pulmonology When should Consulting Provider be notified: In am Person Notified: GRANT Date Notified: 09/22/16 Time Notified: 08:00 09/22/16 02:35 Consult to Pharmacy [CONS] Routine Reason for Pharmacy Consult: Adjust Meds Renal Funct 09/23/16 03:27 Consult to Physician [CONS] Routine Comment: Consulting Provider: Consult to Specialist Group: Cardiology When should Consulting Provider be notified: In am Person Notified: VILMA/GARCIA Date Notified: 09/23/16 Time Notified: 09:30 Consult Notification Comment: IN PERSON PER END FINDER TWISTING DEPARTMENT 09/23/16 12:48 Consult to Physician [CONS] Routine Comment: (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 May see tomorrow Consulting Provider: Pipo Christianson Consult to Specialist Group: Nephrology Consult Notification Comment: CP SPOKE WITH DR. CHRISTIANSON AT 1400 ABOUT CONSULT ON 09/23/16 SAID TO GET A URINE SPECIMEN, SO I TOLD NURSE. 09/23/16 12:49 Consult to Sleep Center [CONS] Routine Reason for Sleep Center: Sleep Center Physician Consult Comment: sleep disorder eval. May see Monday or outpatient 10/01/16 08:36 Consult to Physical Therapy [CONS] Routine Reason for Physical Therapy: Weakness Discharging clinician: Audra Burgos MD Expected date of discharge: 10/03/16
[2016-10-03 16:30] VITALS: BP 145/69
== END 2016-10-03 16:54 | disposition home or self-care (01) | DRG 291 ==
LOC: N.ED 20:49 → SUATTDRO 23:30 → N.EDINP 23:30 → N.TELEN 09-22 00:20
PROVIDERS: ADMIT Internal Medicine; ATTEND Internal Medicine

== ENCOUNTER 2016-10-28 22:13 | Inpatient (IN) ==
[2016-10-28] MEDS ORDERED: MORPHINE 2 MG/1 ML SYRINGE IV STA (22:36)
[2016-10-28] MEDS ORDERED: ASPIRIN 325 MG TABLET PO STA (22:36)
[2016-10-28] MEDS ORDERED: ONDANSETRON 4 MG/2 ML VIAL IV STA (22:36)
[2016-10-28] MEDS ORDERED: SODIUM CHLORIDE 0.9% 500 ML IV STA (22:36)
[2016-10-28] MEDS ORDERED: FUROSEMIDE 100 MG/10 ML VIAL IV STA (22:36)
--- NOTE | 2016-10-28 22:36 | Emergency Department Note ---
Arrival - Arrival Chief Complaint: Shortness of Breath Stated Complaint: short of breath ED Nursing Triage Note: pt to room via stretcher per shankar. pt states he has been sob x 3 days sats 83 on room air. placed on 3lnc Mode of Arrival: Stretcher Time Seen by Provider: 10/28/16 22:33 - History of Present Illness HPI Narrative: This is a 71-year-old male who is a [facility] complaining of shortness of breath that has worsened over the last 2-3 days. His shortness of breath is okay when he lies in the bed. Lying completely flat does not worsen the shortness of breath but he has significant dyspnea on exertion. The patient states that he has a nonproductive cough and denies fever. The patient does also have intermittent chest pain which is not necessarily associated with the cough or shortness of breath. He presents now for further evaluation of her symptoms. He does have some associated swelling of his lower extremities which he points out to me. Allergies/Adverse Reactions: Allergies Allergy/AdvReac Type Severity Reaction Status Date / Time steroid AdvReac Hypertensio Uncoded 10/28/16 22:25 n Home Medications: Home Medications Medication Instructions Recorded Confirmed Type Atorvastatin Calcium [Lipitor] 40 mg PO DAILY 01/05/16 09/21/16 History Hydroxychloroquine Sulfate 200 mg PO QOTHER DAY 01/05/16 09/21/16 History Magnesium Oxide 420 mg PO DAILY 01/05/16 09/21/16 History Methocarbamol Tab [Robaxin Tab] 750 mg PO QID 01/05/16 09/21/16 History Omeprazole [Prilosec] 20 mg PO BID W/MEALS 01/05/16 09/21/16 History Colchicine 0.5 tablet PO QOTHER DAY #0 01/08/16 09/21/16 Rx Allopurinol [Zyloprim] 150 mg PO DAILY #30 mg 02/06/16 09/21/16 Rx Aspirin [Ecotrin] 81 mg PO DAILY #100 tablet. 02/06/16 09/21/16 Rx Furosemide Tab [Lasix Tab] 40 mg PO DAILY W/BREAKFAST #30 02/06/16 09/21/16 Rx tablet NIFEdipine [Nifedipine ER] 60 mg PO DAILY #120 tablet.er 02/06/16 09/21/16 Rx Sodium Bicarb Tab 325 mg PO BID 09/21/16 09/21/16 History Albuterol/Ipratropium Neb [Duoneb] 3 ml RESP TX RT Q6H PRN #60 10/03/16 Rx Amiodarone Tab [Cordarone Tab] 200 mg PO DAILY #30 tablet 10/03/16 Rx Docusate Sodium Cap [Colace Cap] 100 mg PO BID #60 capsule 10/03/16 Rx Furosemide Tab [Lasix Tab] 80 mg PO DAILY #30 tablet 10/03/16 Rx HYDROcodone/ACETAMIN 10-325 [[place] 1 tablet PO Q4H PRN #30 tablet 10/03/16 Rx 10-325] Insulin NPH [HumuLIN N] 22 unit SUBCUT BID #100 unit 10/03/16 Rx Lactulose Liquid [Chronulac] 20 gm PO Q6H PRN #30 10/03/16 Rx Metoprolol Tartrate Tab [Lopressor 25 mg PO BID #60 tablet 10/03/16 Rx Tab] Review of System - Review of System 12 point system: reviewed and no additional remarkable complaints except as stated Medical,Surgical,& Family Hx - Medical History Cardio: History of: Cardiac Dysrhythmia, Hypertension, Cardiovascular Problems ( Aortic valve; DVT's) No history of: CAD, [place] Endocrine: History of: Diabetes Mellitus (IDDM), Dyslipidemia Rheumatology: History of;: Gout Respiratory: History of: COPD (Home O2 at 2L) Renal: History of: Renal Problems (metabolic acidosis with elevated serum creatinine) Musculoskeletal: History of: Back/Neck Problems - Surgical History Cardiac Surgeries: Sugical HX of: Cardiac Surgery (Aortic valve replacement 2012 ) Neurologic Surgeries: Patient denies: Neurologic Surgery HEENT Surgeries: Surgical HX of: Tonsilectomy & Adenoidectomy Orthopedic Surgeries: Surgical HX of;: Total Knee Replacement (BOTH) - Family History Family History: Reports;: Family Diabetes, Family Hypertension Denies;: Family Stroke Comment Only: Family Cancer (mother,colon. brother, prostate) - Social History Smoking Status: Former smoker Frequency of Alcohol Use: None Type of Drug Use: None Exam Physical Examination: General: Patient is well-developed and well-nourished with no acute distress noted. HEENT: The extraocular muscles are intact. Oropharynx is moist. There is no erythema or exudate. The tympanic membranes are shiny bilaterally. Neck: There is no adenopathy. Full range of motion is noted without pain. The trachea is midline. No JVD is present. Lungs: There is normal excursion of the chest with the lungs sounding clear bilaterally. No subcostal retractions are present. There is no point tenderness present. Heart: The heart has a regular rate and rhythm with no gallops or murmurs. Abdomen: The abdomen is nontender and nondistended with no rebound, guarding, or masses. Bowel sounds are normal. Back: The back demonstrates a normal appearance with no evidence of trauma. Genitourinary: Not examined. Extremities: The extremities demonstrate bilateral lower extremity edema which is approximately +2 and equal bilaterally. There is no warmth or erythematous change. Pulses are intact. Neuro: Cranial nerves II through XII are checked and intact. There is no focal motor or sensory deficit seen in the extremities. Skin: Skin is warm and dry with no evidence of rash. Vital Signs: Vital Signs Temperature 98.4 F 10/28/16 22:13 Pulse Rate 70 10/28/16 22:59 Respiratory Rate 22 10/28/16 22:59 Blood Pressure 158/58 10/28/16 22:13 O2 Sat by Pulse Oximetry 83 L 10/28/16 22:13 Results - Labs CBC & BMP: 10/28/16 22:35 10/28/16 22:35 Lab Results: I have reviewed the patients labs Labs: Lab Results WBC 10.9 T/CUMM (4-12) 10/28/16 22:35 RBC 3.25 MC/CUMM (3.8-5.5) L 10/28/16 22:35 Hgb 8.5 GM/DL (14.0-18.0) L 10/28/16 22:35 Hct 26.5 VOL% (42.0-52.0) L 10/28/16 22:35 MCV 81.5 FL (87-102) L 10/28/16 22:35 MCH 26 PG (27-34) L 10/28/16 22:35 MCHC 32.1 GM/DL (32-36) 10/28/16 22:35 RDW 16.4 % (9.3-17.3) 10/28/16 22:35 Plt Count 195 T/CUMM (130-400) 10/28/16 22:35 MPV 10.2 FL (9.6-12.0) 10/28/16 22:35 Neut % (Auto) 79.9 % (38.7-73.9) H 10/28/16 22:35 Lymph % (Auto) 8.4 % (21.2-54.2) L 10/28/16 22:35 [place] % (Auto) 6.1 % (1.7-12.7) 10/28/16 22:35 Eos % (Auto) 4.6 % (0.00-10.9) 10/28/16 22:35 Baso % (Auto) 0.5 % (0.0-0.8) 10/28/16 22:35 Neut # (Auto) 8.7 10*3/uL (1.4-7.4) H 10/28/16 22:35 Lymph # (Auto) 0.9 10*3/uL (1.4-4.0) L 10/28/16 22:35 [place] # (Auto) 0.7 10*3/uL (0.11-0.8) 10/28/16 22:35 Eos # (Auto) 0.5 10*3/uL (0.0-0.87) 10/28/16 22:35 Baso # (Auto) 0.1 10*3/uL (0.0-0.2) 10/28/16 22:35 Immature Gran % 0.5 % 10/28/16 22:35 Nucleated RBC % 0.0 /100WBC 10/28/16 22:35 Immature Gran # 0.05 # 10/28/16 22:35 Nucleated RBCs # 0.00 10*3/uL 10/28/16 22:35 INR 1.1 10/28/16 22:35 PT Patient/Control Mix 11.4 SECS 10/28/16 22:35 D-Dimer, Quantitative 1.7 MG/L FEU 10/28/16 22:35 Sodium 140 MMOL/L (136-145) 10/28/16 22:35 Potassium 4.1 MMOL/L (3.5-5.1) 10/28/16 22:35 Chloride 104 MMOL/L (98-107) 10/28/16 22:35 Carbon Dioxide 23 MMOL/L (21-32) 10/28/16 22:35 Anion Gap 17.1 MMOL/L (5.0-15.0) H 10/28/16 22:35 BUN 56 MG/DL (7-18) H 10/28/16 22:35 Creatinine 3.90 MG/DL (0.70-1.30) H 10/28/16 22:35 GFR Calculation 21 ML/MIN 10/28/16 22:35 BUN/Creatinine Ratio 14.00 RATIO (6.00-20.00) 10/28/16 22:35 Glucose 121 MG/DL (74-106) H 10/28/16 22:35 Calculated Osmolality 295.4 MOS/KG (273-304) 10/28/16 22:35 Calcium 7.6 MG/DL (8.5-10.1) L 10/28/16 22:35 Magnesium 1.6 MG/DL (1.8-2.4) L 10/28/16 22:35 Total Bilirubin 0.50 MG/DL (0.2-1.0) 10/28/16 22:35 AST 15 U/L (0-37) 10/28/16 22:35 ALT 14 U/L (16-61) L 10/28/16 22:35 Alkaline Phosphatase 162 U/L (45-117) H 10/28/16 22:35 Troponin I 0.023 NG/ML (0.00-0.045) 10/28/16 22:35 Total Protein 6.7 G/DL (6.4-8.3) 10/28/16 22:35 Albumin 3.2 G/DL (3.4-5.0) L 10/28/16 22:35 Globulin 3.5 G/DL (2.3-3.5) 10/28/16 22:35 Albumin/Globulin Ratio 0.9 RATIO (1.1-2.2) L 10/28/16 22:35 - Diagnostic Findings Procedure: Chest x-ray: image reviewed by me (Pulmonary edema mild cardiomegaly worsened than previous study.) Disposition Clinical Impression: Pulmonary edema, CKD (chronic kidney disease), Diabetes, Diastolic CHF Case discussed with: patient, patient's family Disposition: Still a Patient Condition: Stable Time of Disposition: 23:37
--- NOTE | 2016-10-28 22:40 | EKG Report ---
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
[2016-10-28 22:50] LABS: Basophils # 0.1 10*3/uL (0.0-0.2); Basophils % 0.5 % (0.0-0.8); Eosinophils # 0.5 10*3/uL (0.0-0.87); Eosinophils % 4.6 % (0.00-10.9); Hematocrit 26.5 VOL% (42.0-52.0); Hemoglobin 8.5 GM/DL (14.0-18.0); Immature Granulocytes % 0.5 %; Immature Granulocytes Absolute 0.05 #; Lymphocytes # 0.9 10*3/uL (1.4-4.0); Lymphocytes % 8.4 % (21.2-54.2); Mean Corpuscular HGB Conc 32.1 GM/DL (32-36); Mean Corpuscular Hemoglobin 26 PG (27-34); Mean Corpuscular Volume 81.5 FL (87-102); Mean Platelet Volume 10.2 FL (9.6-12.0); Monocytes # 0.7 10*3/uL (0.11-0.8); Monocytes % 6.1 % (1.7-12.7); Neutrophils # 8.7 10*3/uL (1.4-7.4); Neutrophils % 79.9 % (38.7-73.9); Platelet Count 195 T/CUMM (130-400); Red Blood Count 3.25 MC/CUMM (3.8-5.5); Red Cell Distribution Width 16.4 % (9.3-17.3); White Blood Count 10.9 T/CUMM (4-12)
[2016-10-28] MEDS ORDERED: MORPHINE 2 MG/1 ML SYRINGE ONE (22:50)
[2016-10-28] MEDS ORDERED: ONDANSETRON 4 MG/2 ML VIAL ONE (22:50)
[2016-10-28] MEDS ORDERED: ASPIRIN 325 MG TABLET ONE (22:50)
[2016-10-28] MEDS ORDERED: FUROSEMIDE 40 MG/4 ML VIAL ONE (22:50)
[2016-10-28 23:08] LABS: D-Dimer 1.7 MG/L FEU; INR 1.1; PT Patient Result 11.4 SECS
[2016-10-28 23:15] LABS: Albumin 3.2 G/DL (3.4-5.0); Bilirubin,Total 0.5 MG/DL (0.2-1.0); Calcium 7.6 MG/DL (8.5-10.1); Magnesium 1.6 MG/DL (1.8-2.4); Osmolality,Calculated 295.4 MOS/KG (273-304); Potassium 4.1 MMOL/L (3.5-5.1); Total Protein 6.7 G/DL (6.4-8.3); Troponin I Only 0.023 NG/ML (0.00-0.045)
--- NOTE | 2016-10-29 00:26 | Hospitalist History & Physical ---
Assessment and Plan (1) Diastolic CHF Status: Acute Assessment and plan: Pulmonary edema on chest x-ray with increasing edema and BMP. Monitor on telemetry. IV Lasix 80 mg every 8 hours. We will need to keep up replacing electrolytes. Continue beta-jim, although this could be changed to metoprolol succinate. He is not on afterload reduction, this should likely be addressed at discharge. Daily weight, fluid restriction, monitor intake and output. Current Visit: Yes Qualifiers: Congestive heart failure chronicity: acute on chronic Qualified Code(s): I50.33 - Acute on chronic diastolic (congestive) heart failure (2) Hypomagnesemia Status: Acute Assessment and plan: Replace IV, likely secondary to diuretics Current Visit: Yes (3) Hypocalcemia Status: Acute Assessment and plan: Replace IV, likely secondary to diuretic Current Visit: Yes (4) Chest pain Status: Acute Assessment and plan: Tight, central chest pain without coronary history. Reproducible with palpation. Troponin and EKG are negative despite that the symptoms of been going on for days. Low concern for ACS. Will be monitored on telemetry. Current Visit: Yes (5) Chronic obstructive pulmonary disease Status: Chronic Assessment and plan: Continue duo nebs, does not appear to currently be an exacerbation. Continue nasal cannula as at home Current Visit: Yes (6) Diabetes mellitus Status: Chronic Assessment and plan: Patient taking Lantus 100 units nightly, has already taken that insulin tonight. Denies any prandial insulin. 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 fib he was once on Coumadin, not currently on any blood thinner, likely needs to have the risk versus benefit discussion Current Visit: Yes (9) Chronic kidney disease, stage IV (severe) Status: Chronic Assessment and plan: Appears to be near baseline. Continue sodium bicarb. Patient of Dr. Spaulding. Current Visit: Yes (10) Paroxysmal atrial fibrillation Status: Chronic Assessment and plan: Currently in sinus rhythm, continue amiodarone. Is not on anticoagulation. Current Visit: Yes (11) Gout Status: Chronic Assessment and plan: Continue home allopurinol and colchicine Current Visit: Yes History of Present Illness Chief complaint: Shortness of breath History of present illness: Mr. Acosta is a 71 year old male with history of diastolic heart failure, EF 60% , CKD stage IV, COPD on home 4 L nasal cannula oxygen, insulin-dependent diabetes, CVA, hypertension, tremors, paroxysmal atrial fibrillation, gout, aortic valve replacement the presented with a chief complaint of shortness of breath. Onset gradual. Duration 1 week. Associated with dry cough, tight chest pain. Chest pain reproducible with palpation. No cardiac history per patient. Dyspnea is worse with exertion and not affected by recumbent position. Also associated with decreased urine output at home. He denied a sensation of suprapubic fullness and was easily able to void with a little Lasix in the emergency department. Denied sick contacts fevers. He was not wearing his oxygen when he arrived at the [place] emergency department and was hypoxemic to the low 80s. He endorses that he needs sleep study but denies that he actively has sleep apnea or is using CPAP. He was once on a blood thinner which sounds like Coumadin. He says that it was stopped because "they could not get the levels right" he denied history of significant bleeding. He was hospitalized here to [place] about 1 month ago for the same problem. I have reviewed the workup performed in the emergency department including lab and imaging data. I discussed his case with emergency department orders. Home Medications Medication Instructions Recorded Confirmed Type Atorvastatin Calcium [Lipitor] 40 mg PO DAILY 01/05/16 09/21/16 History Hydroxychloroquine Sulfate 200 mg PO QOTHER DAY 01/05/16 09/21/16 History Magnesium Oxide 420 mg PO DAILY 01/05/16 09/21/16 History Methocarbamol Tab [Robaxin Tab] 750 mg PO QID 01/05/16 09/21/16 History Omeprazole [Prilosec] 20 mg PO BID W/MEALS 01/05/16 09/21/16 History Colchicine 0.5 tablet PO QOTHER DAY #0 01/08/16 09/21/16 Rx Allopurinol [Zyloprim] 150 mg PO DAILY #30 mg 02/06/16 09/21/16 Rx Aspirin [Ecotrin] 81 mg PO DAILY #100 tablet.dr 02/06/16 09/21/16 Rx Furosemide Tab [Lasix Tab] 40 mg PO DAILY W/BREAKFAST #30 02/06/16 09/21/16 Rx tablet NIFEdipine [Nifedipine ER] 60 mg PO DAILY #120 tablet.er 02/06/16 09/21/16 Rx Sodium Bicarb Tab 325 mg PO BID 09/21/16 09/21/16 History Albuterol/Ipratropium Neb [Duoneb] 3 ml RESP TX RT Q6H PRN #60 10/03/16 Rx Amiodarone Tab [Cordarone Tab] 200 mg PO DAILY #30 tablet 10/03/16 Rx Docusate Sodium Cap [Colace Cap] 100 mg PO BID #60 capsule 10/03/16 Rx Furosemide Tab [Lasix Tab] 80 mg PO DAILY #30 tablet 10/03/16 Rx HYDROcodone/ACETAMIN 10-325 [[place] 1 tablet PO Q4H PRN #30 tablet 10/03/16 Rx 10-325] Insulin NPH [HumuLIN N] 22 unit SUBCUT BID #100 unit 10/03/16 Rx Lactulose Liquid [Chronulac] 20 gm PO Q6H PRN #30 10/03/16 Rx Metoprolol Tartrate Tab [Lopressor 25 mg PO BID #60 tablet 10/03/16 Rx Tab] Allergies Allergy/AdvReac Type Severity Reaction Status Date / Time steroid AdvReac Hypertensio Uncoded 10/28/16 22:25 n Medical,Surgical,& Family Hx - Medical History Cardio: History of: Cardiac Dysrhythmia, Hypertension, Cardiovascular Problems ( Aortic valve; DVT's) No history of: CAD, [place] Endocrine: History of: Diabetes Mellitus (IDDM), Dyslipidemia Rheumatology: History of;: Gout Respiratory: History of: COPD (Home O2 at 2L) Renal: History of: Renal Problems (metabolic acidosis with elevated serum creatinine) Gastrointestinal: History of: GERD Musculoskeletal: History of: Back/Neck Problems Other: History of: Skin Problems - Surgical History Cardiac Surgeries: Sugical HX of: Cardiac Surgery (Aortic valve replacement 2013 ) Neurologic Surgeries: Patient denies: Neurologic Surgery HEENT Surgeries: Surgical HX of: Tonsilectomy & Adenoidectomy Orthopedic Surgeries: Surgical HX of;: Total Knee Replacement (BOTH) - Family History Family History: Reports;: Family Diabetes, Family Hypertension Denies;: Family Stroke Comment Only: Family Cancer (mother,colon. brother, prostate) - Social History Smoking Status: Former smoker Have you smoked in the last 12 months: No Frequency of Alcohol Use: None Type of Drug Use: None Marital Status: Lives With:: Spouse Functional capacity: independent ambulation Review of systems: - Constitutional Constitutional: Absent: chills, fatigue, fever(s), night sweats, weight loss - EENT Eyes: Absent: blurry vision Ears: Absent: decreased hearing, ear pain Nose, mouth and throat: Absent: nasal congestion, sore throat - Cardiovascular Cardiovascular: Present: Reproducible chest pain, increasing edema, dyspnea with exertion, palpitations absent: Orthopnea, - Respiratory Respiratory: Present: Dry cough, dyspnea absent: Hemoptysis - Gastrointestinal Gastrointestinal: Absent: abdominal pain, constipation, diarrhea, dysphagia, hematemesis, hematochezia, melena, nausea, vomiting - Genitourinary Genitourinary: Present: Decreased urine output absent: difficulty urinating, dysuria, hematuria - Musculoskeletal Musculoskeletal: Present: Rheumatoid arthritis affecting back, knees - Neurological Neurological: Absent: confusion, dizziness, focal weakness, headache(s), numbness, paresthesias, syncope - Psychiatric Psychiatric: Absent: anxiety, depression - Endocrine Endocrine: Absent: cold intolerance, heat intolerance, polydipsia, polyuria - Hematologic/Lymphatic Hematologic/Lymphatic: Absent: easy bleeding, easy bruising, lymphadenopathy Exam - Constitutional Vitals: Period Temp Pulse Resp BP Sys/Maloney Pulse Ox Last 24 Hr 98.4 F-98.4 F 62-70 16-22 144-161/58-65 83-97 General appearance: morbidly obese, other (Elderly white male lying on stretcher , pleasant cooperative) Exam: - Eye Eye exam: Present: EOMI. Absent: conjunctival injection, scleral icterus Pupils: Present: TAMIA - ENT ENT exam: Present: normal external ear exam, normal oropharynx - Expanded ENT Exam Mouth exam: Present: moist - Neck Neck exam: Present: normal inspection. Absent: lymphadenopathy, thyromegaly - Respiratory Respiratory exam: Present: Wet crackles diffusely, tachypnea, mildly increased work of breathing. Absent: Wheezes - Cardiovascular Cardiovascular exam: Present: regular rate and rhythm, systolic murmur. Absent : diastolic murmur Median sternotomy scar noted - Expanded Cardiovascular Exam Peripheral pulses: 2+: posterior tibialis (L), posterior tibialis (R) - GI/Abdominal GI/Abdominal exam: Present: normal bowel sounds, soft, obese. Absent: distended , hyperactive bowel sounds, hypoactive bowel sounds, organomegaly, tenderness, rebound - Extremities Exam Extremities exam: Present: Bilateral lower extremity pitting edema - Neurological Exam Neurological exam: Present: alert, oriented X3, CN II-XII intact. Absent: motor sensory deficit - Psychiatric Psychiatric exam: Present: normal affect - Skin Skin exam: Present: warm, dry. Absent: diaphoretic, rash Results - Labs CBC & BMP: 10/28/16 22:35 10/28/16 22:35 - EKG EKG results: sinus rhythm (First-degree AV block, LAFB, no ST segment changes) - Diagnostic Findings Procedure: Chest x-ray: report reviewed by me
[2016-10-29] MEDS ORDERED: LACTULOSE 20 GM/30 ML UDCUP PO PRN (01:07)
[2016-10-29] MEDS ORDERED: DEXTROSE 50% 25 GM/50 ML VIAL IV PRN (01:07)
[2016-10-29] MEDS ORDERED: MAGNESIUM SULF RIDER 2 GM in PREMIX 1 EACH IV ONE (01:07)
[2016-10-29] MEDS ORDERED: GLUCAGON 1 MG VIAL IM PRN ×2 (01:07)
[2016-10-29] MEDS ORDERED: ALBUTEROL/IPRATROPIUM 3 ML NEB RESP TX PRN (01:07)
[2016-10-29] MEDS: HEPARIN 5,000 UNIT/1 ML VIAL SUBCUT SCH ×2 (01:51→10:10)
[2016-10-29] MEDS: FUROSEMIDE 40 MG/4 ML VIAL IV SCH ×2 (01:52→09:23)
[2016-10-29] MEDS ORDERED: CALCIUM GLUCONATE 1,000 MG in SODIUM CHLORIDE 0.9% 100 ML IV ONE (02:00)
[2016-10-29] MEDS: MORPHINE 2 MG/1 ML SYRINGE IV PRN ×2 (02:54→12:27)
[2016-10-29 04:23] LABS: Basophils # 0.1 10*3/uL (0.0-0.2); Basophils % 0.7 % (0.0-0.8); Eosinophils # 0.6 10*3/uL (0.0-0.87); Eosinophils % 5.2 % (0.00-10.9); Hemoglobin 7.9 GM/DL (14.0-18.0); Immature Granulocytes % 0.6 %; Immature Granulocytes Absolute 0.07 #; Lymphocytes % 8.8 % (21.2-54.2); Mean Corpuscular HGB Conc 31.6 GM/DL (32-36); Mean Corpuscular Hemoglobin 26 PG (27-34); Mean Corpuscular Volume 80.9 FL (87-102); Mean Platelet Volume 10.4 FL (9.6-12.0); Monocytes # 0.9 10*3/uL (0.11-0.8); Monocytes % 7.7 % (1.7-12.7); Neutrophils # 8.8 10*3/uL (1.4-7.4); Platelet Count 187 T/CUMM (130-400); Red Blood Count 3.09 MC/CUMM (3.8-5.5); Red Cell Distribution Width 16.5 % (9.3-17.3); White Blood Count 11.5 T/CUMM (4-12)
[2016-10-29 04:56] LABS: Calcium 7.3 MG/DL (8.5-10.1); Magnesium 2.2 MG/DL (1.8-2.4); Osmolality,Calculated 293.3 MOS/KG (273-304); Potassium 3.9 MMOL/L (3.5-5.1)
[2016-10-29] MEDS: DEXTROSE 50% 25 GM/50 ML VIAL IV PRN (05:21)
--- NOTE | 2016-10-29 07:50 | XRay Report ---
XR chest 1V portable Indication: Shortness of breath Comparison: Chest x-ray September 26, 2016 Technique: Portable AP chest was performed. Findings: The heart is mildly enlarged, stable. Previous sternotomy is demonstrated. Minimal atherosclerotic calcification of the aortic knob is stable. Pulmonary vasculature appears prominent within the central chest. Hilar structures demonstrate fairly symmetric appearance. The lungs demonstrate scattered air space opacities somewhat prominent interstitial markings. Interstitial markings are somewhat more prevalent in the lung bases. Bones and soft tissues demonstrate no evidence of acute pathology. Impression: 1. Appearance of the chest is most suggestive of CHF with pulmonary edema. 10/29/2016 7:46 AM PROCEDURE INTERPRETED AT [facility] DEPARTMENT OF RADIOLOGY Final Report Signed by: Dr. Pepito Santos
[2016-10-29] MEDS: INSULIN LISPRO 100 UNIT/ML SUBCUT SCH ×4 (08:26→20:01)
[2016-10-29] MEDS ORDERED: NIFEdipine CC 60 MG TABLET PO SCH (09:00)
[2016-10-29] MEDS: ASPIRIN EC 81 MG TABLET PO SCH (09:22)
[2016-10-29] MEDS: PANTOPRAZOLE 40 MG TABLET PO SCH ×2 (09:22→17:55)
[2016-10-29] MEDS: SODIUM BICARBONATE 650 MG TABLET PO SCH ×2 (09:22→20:02)
[2016-10-29] MEDS: HYDROXYCHLOROQUINE 200 MG TABLET PO SCH (09:23)
[2016-10-29] MEDS: ALLOPURINOL 300 MG TABLET PO SCH (09:23)
[2016-10-29] MEDS: METOPROLOL TARTRATE 25 MG TABLET PO SCH ×2 (09:23→20:02)
[2016-10-29] MEDS: AMIODARONE 200 MG TABLET PO SCH (09:23)
[2016-10-29] MEDS: COLCHICINE 0.6 MG TABLET PO SCH (09:23)
[2016-10-29] MEDS: MAGNESIUM OXIDE 400 MG TABLET PO SCH (09:23)
[2016-10-29] MEDS: ATORVASTATIN 40 MG TABLET PO SCH (09:23)
[2016-10-29] MEDS: DOCUSATE SODIUM 100 MG CAPSULE PO SCH ×2 (09:58→20:00)
--- NOTE | 2016-10-29 14:43 | Hospitalist Progress Note ---
Assessment and Plan - Time spent with patient Time spent with patient: Greater than 30 minutes (1) Chest pain Status: Acute Assessment and plan: We will transfer to the CCU for closer monitoring. Will order nitroglycerin drip for blood pressure control. Serial troponins. Consult cardiology. In case this may represent a pulmonary embolism we will start the patient on therapeutic heparin. Obtain a VQ scan. Current Visit: Yes (2) Diastolic CHF Status: Acute Assessment and plan: Improving. Patient continues have mild lower extremity edema and some bibasilar crackles, however will decreased lasix dose from 80mg q8hr to daily. Current Visit: Yes Qualifiers: Congestive heart failure chronicity: acute on chronic Qualified Code(s): I50.33 - Acute on chronic diastolic (congestive) heart failure (3) Paroxysmal atrial fibrillation Status: Chronic Assessment and plan: Continue current management. Stable, sinus. Current Visit: Yes (4) Diabetes mellitus Status: Chronic Assessment and plan: Patient was hypoglycemic this morning, I have discontinued the home insulin dose but was continued at admission. Currently he is only on sliding scale insulin and Accu-Cheks. 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 Current Visit: Yes (6) Chronic kidney disease, stage IV (severe) Status: Chronic Assessment and plan: Continue to follow closely. Current Visit: Yes (7) Gout Status: Chronic Assessment and plan: Continue meds. Current Visit: Yes (8) Hypertension Status: Chronic Assessment and plan: Her medications have been continued. Patient appears well controlled with the exception of one episode today. Transfer to the CCU and follow closely for any changes in blood pressure. Current Visit: Yes (9) Chronic obstructive pulmonary disease Status: Chronic Assessment and plan: Stable, no wheezing. Current Visit: Yes Hospitalist: Subjective Interval history: Patient developed sudden onset chest pain this afternoon, left-sided, patient appeared very uncomfortable with severe shortness of breath. Blood pressure was noted to be 220/80. Saturations dropped to mid 70s. Heart alert was called EKG was performed. Patient was placed on facemask oxygen. No evidence of ACS on EKG. Troponin on admission was unremarkable. Labs including repeat troponin were drawn again. Chest pain improved after 10 minutes. No nitroglycerin was administered. Exam - Constitutional Vitals: Period Temp Pulse Resp BP Sys/Maloney Pulse Ox Last 24 Hr 97.5 F-98.1 F 57-65 20-21 112-147/59-71 92-93 General appearance: no acute distress, morbidly obese - Head Head exam: Present: normocephalic, atraumatic - Eye Eye exam: Present: EOMI Pupils: Present: TAMIA - ENT ENT exam: Present: normal exam - Neck Neck exam: Present: normal inspection - Respiratory Respiratory exam: Present: other (Crackles at the bases.). Absent: rhonchi, wheezes - Cardiovascular Cardiovascular exam: Present: regular rate and rhythm. Absent: gallop, rubs, systolic murmur - GI/Abdominal GI/Abdominal exam: Present: normal bowel sounds, soft. Absent: distended, firm , guarding, tenderness, rebound - Extremities Exam Extremities exam: Present: normal inspection, edema (1+ bilaterally). Absent: calf tenderness Results - Labs CBC & BMP: 10/29/16 03:38 10/29/16 03:38 Lab Results: I have reviewed the past 24 hour labs
--- NOTE | 2016-10-29 14:50 | EKG Report ---
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
[2016-10-29] MEDS ORDERED: HEPARIN DRIP 25,000 UNITS/500 ML PREMIX IV SCH (15:00)
[2016-10-29] MEDS ORDERED: NITROGLYCERIN DRIP 50 MG/250 ML BOTTLE IV SCH (15:00)
--- NOTE | 2016-10-29 15:48 | Cardiology Consult Note ---
History of Present Illness - Data of Consult Patient: known to practice within the last 3 years - Consult Narrative History of present illness: Cardiology consult 71-year-old man admitted with recurrent CHF. He has been short of breath for the last 3 or 4 days and his O2 sat was 83% on room air in the emergency room on presentation. He was on the floor and after returning from the bathroom he became weak in the legs, short of breath and had tightness and was transferred to CCU for further evaluation. Chest x-ray shows marked cardiomegaly with CHF. BNP level is 495. EKG shows sinus rhythm with left axis deviation and IVCD and ST-T wave changes. It should be noted that the patient has microcytic anemia. Hemoglobin 7.9 hematocrit 25.0 MCV 80. Patient was last hospitalized September 21, 2016 with a hemoglobin 9.5 hematocrit 30.4 and a creatinine to 3.20 and BUN of 48. The patient has chronic renal failure and was evaluated Dr. Spaulding last month. Creatinine today is 3.80 BUN is 56 potassium 3.9. 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 Magaña May 22, 2013 for severe aortic stenosis. At that time he had widely patent coronaries and preserved ventricular function. Echo Doppler done September 21, 2016 showed ejection fraction of 60% with grade 2 diastolic dysfunction, moderate dilated left atrium, mitral annular calcification, the aortic tissue valve was sclerotic but open widely. The right ventricle is dilated severe TR PA pressure 65-70 with no effusion. The patient has a history of paroxysmal atrial fibrillation. He had been on Coumadin in the past but it was stopped at the [facility] because of noncompliance and difficulty keeping the pro time therapeutic. He had recurrent atrial fibrillation in September 2016 was placed on amiodarone and converted chemically back to sinus rhythm. Currently taking 200 mg amiodarone daily. The patient is 6 feet tall and weighs 280 pounds. The patient does have suspected obstructive sleep apnea. He was seen by Dr. Ca in September and was set up for an outpatient sleep study but he never kept the appointment. A patient is a diabetic and takes NPH insulin 22 units twice daily. He also has hyperlipidemia and takes Lipitor daily. He is currently on Lasix 40 mg daily and sodium bicarbonate 325 mg twice daily. Blood pressure 112/71. Pulse is 62 and sinus. O2 sat 95% on 6 L cannula. Bilateral arcus. No xanthelasma. Faint carotid bruits. Decreased breath sounds with bibasilar crackles. Rhythm is regular. 2/6 systolic if her upper right sternal border. No AI heard. Abdomen obese soft benign. Femoral pulses 2+ and deep distal pulses are 1+ trace leg edema Impression Recurrent diastolic heart failure. Untreated obstructive sleep apnea. The patient did not show up for his sleep study test Microcytic anemia MCV 80, hemoglobin 7.9 hematocrit 25.0 Obesity 6 feet tall 280 pounds GE reflux Insulin diabetic with poor control. Hemoglobin A1c level 7.9 when tested September 21, 2016. Sedentary and deconditioned Status post #25 pericardial tissue aortic valve prosthesis May 24, [address] Magaña for severe aortic stenosis. At that time he had patent coronaries and normal ventricular function. Chronic renal failure stage IV followed by Dr. Pipo Spaulding. Creatinine today 3.80 BUN 56. Creatinine was 3.5 last admission September 21, 2016. Paroxysmal atrial fibrillation. Currently in sinus rhythm on amiodarone 200 mg daily Hyperlipidemia Hypertension Multifactorial chronic dyspnea Plan O2 and duo nebs Consult Dr. Spaulding Patient needs sleep study. In all likelihood, he has obstructive sleep apnea. Recent echo showed a dilated right ventricle with severe TR, PA pressure 65-70. Lasix BMP, CBC iron studies in a.m. CC: Floridalma Parada MD - Home Medications and Allergies Home Medications: Home Medications Medication Instructions Recorded Confirmed Type Atorvastatin Calcium [Lipitor] 40 mg PO DAILY 01/05/16 09/21/16 History Hydroxychloroquine Sulfate 200 mg PO QOTHER DAY 01/05/16 09/21/16 History Magnesium Oxide 420 mg PO DAILY 01/05/16 09/21/16 History Methocarbamol Tab [Robaxin Tab] 750 mg PO QID 01/05/16 09/21/16 History Omeprazole [Prilosec] 20 mg PO BID W/MEALS 01/05/16 09/21/16 History Colchicine 0.5 tablet PO QOTHER DAY #0 01/08/16 09/21/16 Rx Allopurinol [Zyloprim] 150 mg PO DAILY #30 mg 02/06/16 09/21/16 Rx Aspirin [Ecotrin] 81 mg PO DAILY #100 tablet. 02/06/16 09/21/16 Rx Furosemide Tab [Lasix Tab] 40 mg PO DAILY W/BREAKFAST #30 02/06/16 09/21/16 Rx tablet NIFEdipine [Nifedipine ER] 60 mg PO DAILY #120 tablet.er 02/06/16 09/21/16 Rx Sodium Bicarb Tab 325 mg PO BID 09/21/16 09/21/16 History Albuterol/Ipratropium Neb [Duoneb] 3 ml RESP TX RT Q6H PRN #60 10/03/16 Rx Amiodarone Tab [Cordarone Tab] 200 mg PO DAILY #30 tablet 10/03/16 Rx Docusate Sodium Cap [Colace Cap] 100 mg PO BID #60 capsule 10/03/16 Rx Furosemide Tab [Lasix Tab] 80 mg PO DAILY #30 tablet 10/03/16 Rx HYDROcodone/ACETAMIN 10-325 [[place] 1 tablet PO Q4H PRN #30 tablet 10/03/16 Rx 10-325] Insulin NPH [HumuLIN N] 22 unit SUBCUT BID #100 unit 10/03/16 Rx Lactulose Liquid [Chronulac] 20 gm PO Q6H PRN #30 10/03/16 Rx Metoprolol Tartrate Tab [Lopressor 25 mg PO BID #60 tablet 10/03/16 Rx Tab] Allergies/Adverse Reactions: Allergies Allergy/AdvReac Type Severity Reaction Status Date / Time steroid AdvReac Hypertensio Uncoded 10/29/16 01:18 n Medical,Surgical,& Family Hx - Medical History Cardio: History of: Cardiac Dysrhythmia (afib), Hypertension, Cardiovascular Problems (Aortic valve; DVT's) No history of: CAD, CT Endocrine: History of: Diabetes Mellitus (IDDM), Dyslipidemia Rheumatology: History of;: Gout Respiratory: History of: COPD (Home O2 at 2L) Renal: History of: Renal Problems (metabolic acidosis with elevated serum creatinine) Gastrointestinal: History of: GERD No history of: Hemorrhoids Musculoskeletal: History of: Back/Neck Problems Other: History of: Skin Problems - Surgical History Cardiac Surgeries: Sugical HX of: Cardiac Surgery (Aortic valve replacement 2012 ) Thoracic Surgeries: Patient denies;: Organ Transplant Neurologic Surgeries: Patient denies: Neurologic Surgery HEENT Surgeries: Surgical HX of: Tonsilectomy & Adenoidectomy Abdominal Surgeries: Patient denies: Appendectomy, Cholecystectomy Orthopedic Surgeries: Surgical HX of;: Total Knee Replacement (BOTH) - Family History Family History: Reports;: Family Diabetes, Family Hypertension Denies;: Family Stroke Comment Only: Family Cancer (mother,colon. brother, prostate) - Social History Smoking Status: Former smoker Frequency of Alcohol Use: None Type of Drug Use: None Physical Examination Vital Signs Temp Pulse Resp BP Pulse Ox 98.4 F 70 22 158/58 83 L 10/28/16 22:13 10/28/16 22:13 10/28/16 22:13 10/28/16 22:13 10/28/16 22:13 Result/EKG - Labs CBC & BMP: 10/29/16 03:38 10/29/16 03:38 Labs: Laboratory Results - last 24 hr 10/29/16 10/29/16 10/29/16 03:38 03:38 05:44 WBC 11.5 RBC 3.09 L Hgb 7.9 L Hct 25.0 L MCV 80.9 L MCH 26 L MCHC 31.6 L RDW 16.5 Plt Count 187 MPV 10.4 Neut % (Auto) 77.0 H Lymph % (Auto) 8.8 L Reynolds % (Auto) 7.7 Eos % (Auto) 5.2 Baso % (Auto) 0.7 Neut # (Auto) 8.8 H Lymph # (Auto) 1.0 L Reynolds # (Auto) 0.9 H Eos # (Auto) 0.6 Baso # (Auto) 0.1 Immature Gran % 0.6 Nucleated RBC % 0.0 Immature Gran # 0.07 Nucleated RBCs # 0.00 Sodium 141 Potassium 3.9 Chloride 105 Carbon Dioxide 25 Anion Gap 14.9 BUN 56 H Creatinine 3.80 H GFR Calculation 21 BUN/Creatinine Ratio 14.00 Glucose 40 L* POC Glucose 126 H Calculated Osmolality 293.3 Calcium 7.3 L Magnesium 2.2 Troponin I 10/29/16 10/29/16 10/29/16 08:17 12:16 14:30 WBC RBC Hgb Hct MCV MCH MCHC RDW Plt Count MPV Neut % (Auto) Lymph % (Auto) Reynolds % (Auto) Eos % (Auto) Baso % (Auto) Neut # (Auto) Lymph # (Auto) Reynolds # (Auto) Eos # (Auto) Baso # (Auto) Immature Gran % Nucleated RBC % Immature Gran # Nucleated RBCs # Sodium Potassium Chloride Carbon Dioxide Anion Gap BUN Creatinine GFR Calculation BUN/Creatinine Ratio Glucose POC Glucose 68 L 101 Calculated Osmolality Calcium Magnesium Troponin I 0.031 10/29/16 15:21 WBC RBC Hgb Hct MCV MCH MCHC RDW Plt Count MPV Neut % (Auto) Lymph % (Auto) Reynolds % (Auto) Eos % (Auto) Baso % (Auto) Neut # (Auto) Lymph # (Auto) Reynolds # (Auto) Eos # (Auto) Baso # (Auto) Immature Gran % Nucleated RBC % Immature Gran # Nucleated RBCs # Sodium Potassium Chloride Carbon Dioxide Anion Gap BUN Creatinine GFR Calculation BUN/Creatinine Ratio Glucose POC Glucose 77 Calculated Osmolality Calcium Magnesium Troponin I
--- NOTE | 2016-10-29 15:59 | XRay Report ---
XR chest 1V Indication: Chest pain. Comparison: Chest x-ray 10/28/2016 Technique: Portable AP chest was performed. Findings: The appearance of the lung parenchyma suggests little change from comparison study. Bilateral areas of coarsened interstitial markings and scattered airspace opacities remain present. Heart size is stable. Bones and soft tissues are stable. Impression: 1. Little change in the lung parenchyma has occurred. Appearance is most suggestive of pulmonary edema and congestive heart failure. Infectious process not excluded. 10/29/2016 3:41 PM PROCEDURE INTERPRETED AT [facility] DEPARTMENT OF RADIOLOGY Final Report Signed by: Dr. Pepito Santos
--- NOTE | 2016-10-29 15:59 | Ultrasound Report ---
US venous doppler LE BI Indication: Lower extremity swelling and pain. Comparison: None. Technique: Using a transcutaneous probe, grayscale, spectral Doppler, and color Doppler images of the bilateral lower extremity venous structures were captured and stored. Grayscale images prior to and following compression were obtained. Interrogated venous structures include the bilateral common femoral vein, superficial femoral vein (proximal, mid, and distal), and popliteal vein. Findings: There is no evidence of thrombus within the interrogated venous structures. the interrogated venous segments demonstrate presence of both color flow and spectral flow. Impression: 1. No evidence of venous thrombosis. 10/29/2016 3:45 PM PROCEDURE INTERPRETED AT [facility] DEPARTMENT OF RADIOLOGY Final Report Signed by: Dr. Pepito Santos
[2016-10-29] MEDS ORDERED: INSULIN GLARGINE 100 UNIT/ML SUBCUT SCH (21:00)
[2016-10-29] MEDS: ALUMINUM/MAGNES/SIMETH MAX STR 30 ML UDCUP PO PRN (21:17)
[2016-10-30] MEDS: MORPHINE 2 MG/1 ML SYRINGE IV PRN ×2 (00:06→05:11)
[2016-10-30 05:19] LABS: Basophils # 0.1 10*3/uL (0.0-0.2); Basophils % 0.9 % (0.0-0.8); Eosinophils # 0.6 10*3/uL (0.0-0.87); Eosinophils % 6.9 % (0.00-10.9); Hematocrit 25.5 VOL% (42.0-52.0); Hemoglobin 7.9 GM/DL (14.0-18.0); Immature Granulocytes % 0.8 %; Immature Granulocytes Absolute 0.06 #; Lymphocytes # 1.2 10*3/uL (1.4-4.0); Lymphocytes % 15.4 % (21.2-54.2); Mean Corpuscular Hemoglobin 25 PG (27-34); Mean Corpuscular Volume 81.5 FL (87-102); Monocytes # 0.8 10*3/uL (0.11-0.8); Monocytes % 10.4 % (1.7-12.7); Neutrophils # 5.2 10*3/uL (1.4-7.4); Neutrophils % 65.6 % (38.7-73.9); Platelet Count 200 T/CUMM (130-400); Red Blood Count 3.13 MC/CUMM (3.8-5.5); Red Cell Distribution Width 16.6 % (9.3-17.3)
[2016-10-30 05:44] LABS: Calcium 7.8 MG/DL (8.5-10.1); Osmolality,Calculated 288.5 MOS/KG (273-304); Potassium 4.4 MMOL/L (3.5-5.1)
[2016-10-30] MEDS: DEXTROSE 50% 25 GM/50 ML VIAL IV PRN (05:53)
[2016-10-30] MEDS: INSULIN LISPRO 100 UNIT/ML SUBCUT SCH ×4 (07:29→21:36)
[2016-10-30 07:55] LABS: Basophils # 0.1 10*3/uL (0.0-0.2); Basophils % 0.7 % (0.0-0.8); Eosinophils # 0.5 10*3/uL (0.0-0.87); Eosinophils % 6.3 % (0.00-10.9); Hematocrit 26.7 VOL% (42.0-52.0); Hemoglobin 8.2 GM/DL (14.0-18.0); Immature Granulocytes % 0.6 %; Immature Granulocytes Absolute 0.05 #; Lymphocytes # 0.9 10*3/uL (1.4-4.0); Lymphocytes % 10.3 % (21.2-54.2); Mean Corpuscular HGB Conc 30.7 GM/DL (32-36); Mean Corpuscular Hemoglobin 26 PG (27-34); Mean Corpuscular Volume 84.5 FL (87-102); Monocytes # 0.6 10*3/uL (0.11-0.8); Monocytes % 7.1 % (1.7-12.7); Neutrophils # 6.4 10*3/uL (1.4-7.4); Platelet Count 167 T/CUMM (130-400); Red Blood Count 3.16 MC/CUMM (3.8-5.5); Red Cell Distribution Width 16.4 % (9.3-17.3); White Blood Count 8.5 T/CUMM (4-12)
--- NOTE | 2016-10-30 08:08 | Hospitalist Progress Note ---
Assessment and Plan - Time spent with patient Time spent with patient: Less than 30 minutes (1) Chest pain Status: Acute Assessment and plan: Patient has been having intermittent episodes of chest discomfort. He is on subcu heparin and VQ scan is pending. Venous Doppler studies were negative for DVT. He continues on IV nitroglycerin. Serial cardiac isoenzymes have not been significantly elevated. Cardiology has been consulted and will defer to them for any further evaluation as needed. Current Visit: Yes (2) Diastolic CHF Status: Acute Assessment and plan: Patient was admitted with recurrent decompensated diastolic heart failure. He currently denies any shortness of breath and has no significant peripheral edema. Will continue current medical therapy. Cardiology is assisting with his care. 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 His current medical regimen and wean IV nitroglycerin per cardiology recommendations. Current Visit: Yes (5) CKD (chronic kidney disease) Status: Chronic Assessment and plan: Nephrology has been consulted. Creatinine remains stable at approximately 3.8. Current Visit: No Qualifiers: Chronic kidney disease stage: stage 4 (severe) Qualified Code(s): N18.4 - Chronic kidney disease, stage 4 (severe) (6) Paroxysmal atrial fibrillation Status: Chronic Assessment and plan: Currently remains in sinus rhythm on amiodarone therapy. Current Visit: Yes (7) Hypoglycemia Status: Acute Assessment and plan: Patient has diabetes and is currently on Accu-Cheks with sliding scale only. He did have a hypoglycemic episode this morning. We will continue to follow and adjust his regimen as required. Current Visit: Yes (8) Chronic obstructive pulmonary disease Status: Chronic Assessment and plan: Continue current regimen. Current Visit: Yes (9) Dyslipidemia Status: Chronic Current Visit: No (10) Status post aortic valve replacement with bioprosthetic valve Status: Chronic Current Visit: Yes Hospitalist: Subjective Interval history: Patient was initially admitted with decompensated diastolic CHF. He developed sudden onset of chest pain which was left-sided with associated severe dyspnea and hypertension. Heart alert was called and EKG revealed no evidence of STEMI and patient was transferred to the ICU. He is currently on IV nitroglycerin. He states he has had a few recurrent episodes of chest discomfort since transfer to the ICU but they are short-lived. He denies any shortness of breath at this time. He has had no nausea or vomiting and is currently eating breakfast. Exam - Constitutional Vitals: Period Temp Pulse Resp BP Sys/Maloney Pulse Ox Last 24 Hr 97.3 F-98.0 F 38-64 11-26 112-181/58-92 90-99 General appearance: no acute distress - Head Head exam: Present: normocephalic, atraumatic - Eye Eye exam: Present: EOMI Pupils: Present: TAMIA - ENT ENT exam: Present: normal exam - Neck Neck exam: Present: normal inspection - Respiratory Respiratory exam: Present: clear to auscultation bilaterally. Absent: rales, rhonchi, wheezes - Cardiovascular Cardiovascular exam: Present: bradycardia, regular rate and rhythm - GI/Abdominal GI/Abdominal exam: Present: normal bowel sounds, soft. Absent: mass, tenderness , rebound - Extremities Exam Extremities exam: Absent: calf tenderness, edema - Back Exam Back exam: Present: normal inspection - Neurological Exam Neurological exam: Present: alert, oriented X3, CN II-XII intact. Absent: motor sensory deficit - Psychiatric Psychiatric exam: Present: normal affect, normal mood. Absent: agitated, anxious - Skin Skin exam: Present: warm, dry. Absent: rash Results - Labs CBC & BMP: 10/30/16 07:47 10/30/16 04:23 Lab Results: I have reviewed the past 24 hour labs
--- NOTE | 2016-10-30 08:20 | Cardiology Progress Note ---
Cardiology - PN: Subj Interval history: Cardiology note 71-year-old man admitted with recurrent heart failure. Telemetry shows sinus rhythm in the 50s and 60s with occasional PACs Blood pressure 154/70 on IV nitroglycerin O2 sat 92% on 2 L Regular rhythm with soft systolic ejection upper right sternal border. No AI. Decreased breath sounds with basilar crackles Abdomen benign No leg edema Lab data today White count 8.5 hemoglobin 8.2 hematocrit 26.7 Sodium 139 potassium 4.4 chloride 103 CO2 28 BUN 57 creatinine 3.80 Blood sugar 33 at 5 AM received amp of D50 Impression Recurrent diastolic heart failure Multifactorial chronic dyspnea Untreated obstructive sleep apnea. The patient did not show up for a sleep study test as scheduled Microcytic anemia MCV 80, hemoglobin 8.2 hematocrit 26.7 Obesity 6 feet tall toward 80 pounds GE reflux Insulin-dependent with poor control. Hemoglobin A1c level 7.9 when tested September 21, 2016 Sedentary and deconditioned Status post #25 pericardial tissue aortic valve prosthesis May 24, [address] Magaña for severe aortic stenosis. At that time he had patent coronaries and normal ventricular function Chronic renal failure stage IV, followed by Dr. Pipo Spaulding. Creatinine today 3.80 BUN 57. Creatinine was 3.5 when last admitted September 21, 2016 Paroxysmal atrial fibrillation. Currently in sinus rhythm on amiodarone 200 mg daily . Chronic hypertension Plan Iron studies pending Patient needs sleep study. Recent echo showed dilated right ventricle with severe TR, PA pressure 65-70 with good systolic function. This patient has NOBLE. Dr. Spaulding to see today Begin hydralazine 25 mg 3 times daily BMP in a.m. Lasix Exam (Progress Note) - Constitutional Vitals: Period Temp Pulse Resp BP Sys/Maloney Pulse Ox Last 24 Hr 97.3 F-98.0 F 38-64 11-26 112-181/58-92 90-99 Result/EKG - Labs CBC & BMP: 10/30/16 07:47 10/30/16 04:23 Labs: Laboratory Results - last 24 hr 10/29/16 10/29/16 10/29/16 08:17 12:16 14:30 WBC RBC Hgb Hct MCV MCH MCHC RDW Plt Count MPV Neut % (Auto) Lymph % (Auto) Rhea % (Auto) Eos % (Auto) Baso % (Auto) Neut # (Auto) Lymph # (Auto) Rhea # (Auto) Eos # (Auto) Baso # (Auto) Immature Gran % Nucleated RBC % Immature Gran # Nucleated RBCs # Absolute Retic Percent Retic Retic Hgb Equivalent Sodium Potassium Chloride Carbon Dioxide Anion Gap BUN Creatinine GFR Calculation BUN/Creatinine Ratio Glucose POC Glucose 68 L 101 Calculated Osmolality Calcium Troponin I 0.031 10/29/16 10/29/16 10/29/16 15:21 16:27 17:38 WBC RBC Hgb Hct MCV MCH MCHC RDW Plt Count MPV Neut % (Auto) Lymph % (Auto) Rhea % (Auto) Eos % (Auto) Baso % (Auto) Neut # (Auto) Lymph # (Auto) Rhea # (Auto) Eos # (Auto) Baso # (Auto) Immature Gran % Nucleated RBC % Immature Gran # Nucleated RBCs # Absolute Retic Percent Retic Retic Hgb Equivalent Sodium Potassium Chloride Carbon Dioxide Anion Gap BUN Creatinine GFR Calculation BUN/Creatinine Ratio Glucose POC Glucose 77 56 L 78 Calculated Osmolality Calcium Troponin I 10/29/16 10/29/16 10/30/16 18:05 19:32 04:23 WBC 8.0 D RBC 3.13 L Hgb 7.9 L Hct 25.5 L MCV 81.5 L MCH 25 L MCHC 31.0 L RDW 16.6 Plt Count 200 MPV 10.0 Neut % (Auto) 65.6 Lymph % (Auto) 15.4 L Rhea % (Auto) 10.4 Eos % (Auto) 6.9 Baso % (Auto) 0.9 H Neut # (Auto) 5.2 Lymph # (Auto) 1.2 L Rhea # (Auto) 0.8 Eos # (Auto) 0.6 Baso # (Auto) 0.1 Immature Gran % 0.8 Nucleated RBC % 0.0 Immature Gran # 0.06 Nucleated RBCs # 0.00 Absolute Retic Percent Retic Retic Hgb Equivalent Sodium Potassium Chloride Carbon Dioxide Anion Gap BUN Creatinine GFR Calculation BUN/Creatinine Ratio Glucose POC Glucose 118 H Calculated Osmolality Calcium Troponin I 0.030 10/30/16 10/30/16 10/30/16 04:23 06:20 07:10 WBC RBC Hgb Hct MCV MCH MCHC RDW Plt Count MPV Neut % (Auto) Lymph % (Auto) Rhea % (Auto) Eos % (Auto) Baso % (Auto) Neut # (Auto) Lymph # (Auto) Rhea # (Auto) Eos # (Auto) Baso # (Auto) Immature Gran % Nucleated RBC % Immature Gran # Nucleated RBCs # Absolute Retic Percent Retic Retic Hgb Equivalent Sodium 139 Potassium 4.4 Chloride 103 Carbon Dioxide 28 Anion Gap 12.4 BUN 57 H Creatinine 3.80 H GFR Calculation 21 BUN/Creatinine Ratio 15.00 Glucose 33 L* POC Glucose 127 H 79 Calculated Osmolality 288.5 Calcium 7.8 L Troponin I 10/30/16 07:47 WBC 8.5 RBC 3.16 L Hgb 8.2 L Hct 26.7 L MCV 84.5 L MCH 26 L MCHC 30.7 L RDW 16.4 Plt Count 167 MPV 10.0 Neut % (Auto) 75.0 H Lymph % (Auto) 10.3 L Rhea % (Auto) 7.1 Eos % (Auto) 6.3 Baso % (Auto) 0.7 Neut # (Auto) 6.4 Lymph # (Auto) 0.9 L Rhea # (Auto) 0.6 Eos # (Auto) 0.5 Baso # (Auto) 0.1 Immature Gran % 0.6 Nucleated RBC % 0.0 Immature Gran # 0.05 Nucleated RBCs # 0.00 Absolute Retic 0.1 Percent Retic 2.6 H Retic Hgb Equivalent 25.3 L Sodium Potassium Chloride Carbon Dioxide Anion Gap BUN Creatinine GFR Calculation BUN/Creatinine Ratio Glucose POC Glucose Calculated Osmolality Calcium Troponin I
[2016-10-30 09:02] LABS: Sedimentation Rate-Westergren 96 MM/HR (0-20)
[2016-10-30 09:06] LABS: Folate 3.6 NG/ML (5.4-24.0); Vitamin B12 438 PG/ML (211-911)
[2016-10-30] MEDS: HEPARIN 5,000 UNIT/1 ML VIAL SUBCUT SCH ×2 (09:12→16:21)
[2016-10-30] MEDS: FUROSEMIDE 40 MG/4 ML VIAL IV SCH (09:13)
[2016-10-30] MEDS: hydrALAZINE 25 MG TABLET PO SCH ×3 (09:13→21:35)
[2016-10-30] MEDS: MAGNESIUM OXIDE 400 MG TABLET PO SCH (09:14)
[2016-10-30] MEDS: SODIUM BICARBONATE 650 MG TABLET PO SCH (09:14)
[2016-10-30] MEDS: AMIODARONE 200 MG TABLET PO SCH ×2 (09:14→10:58)
[2016-10-30] MEDS: ALLOPURINOL 300 MG TABLET PO SCH (09:14)
[2016-10-30] MEDS: DOCUSATE SODIUM 100 MG CAPSULE PO SCH ×2 (09:14→21:36)
[2016-10-30] MEDS: ATORVASTATIN 40 MG TABLET PO SCH (09:14)
[2016-10-30] MEDS: ASPIRIN EC 81 MG TABLET PO SCH (09:14)
[2016-10-30] MEDS: PANTOPRAZOLE 40 MG TABLET PO SCH ×2 (09:15→17:07)
[2016-10-30] MEDS: NIFEdipine CC 60 MG TABLET PO SCH (09:16)
[2016-10-30] MEDS: METOPROLOL TARTRATE 25 MG TABLET PO SCH ×3 (09:17→21:36)
--- NOTE | 2016-10-30 10:57 | Nuclear Medicine Report ---
NM lung scan vent and per Indication: Shortness of breath. Comparison: None. Technique: Ventilation scan of the lungs was performed. 40 mCi of technetium 99m labeled DTPA was administered in aerosolized form, following which planar imaging in the anterior, YI, and HERNANDEZ projections was accomplished. Following this, 5 mCi technetium 99m labeled MAA was injected intravenously and perfusion scanning of the chest was performed in the anterior, YI, and HERNANDEZ projections. Findings: No perfusion defect is demonstrated to suggest embolus. Impression: 1. There are no perfusion defects. This excludes pulmonary artery embolus. 10/30/2016 10:52 AM PROCEDURE INTERPRETED AT [facility] DEPARTMENT OF RADIOLOGY Final Report Signed by: Dr. Pepito Santos
--- NOTE | 2016-10-30 11:39 | Nephrology Consult Note ---
History of Present Illness Chief complaint: CRF, S OB History of present illness: Mr. Acosta is a 71 year old male admitted 10/29/2016 with chief complaint shortness of breath. He has a history of chronic renal failure, CHF, and COPD. He was hospitalized last month with similar symptoms. He responded to diuresis plus treatment of bronchospasm. Renal function worsened slightly with diuresis. His weight was 124.3 kg when he was discharged on 10/03/2016. Baseline creatinine between 3 and 4. It kwabena to 5.4 during his last admission with diuresis. It improved to 4.6 at discharge. Creatinine on readmission 3.8. Weight on readmission 127 kg Home Medications Medication Instructions Recorded Confirmed Type Atorvastatin Calcium [Lipitor] 40 mg PO DAILY 01/05/16 09/21/16 History Hydroxychloroquine Sulfate 200 mg PO QOTHER DAY 01/05/16 09/21/16 History Magnesium Oxide 420 mg PO DAILY 01/05/16 09/21/16 History Methocarbamol Tab [Robaxin Tab] 750 mg PO QID 01/05/16 09/21/16 History Omeprazole [Prilosec] 20 mg PO BID W/MEALS 01/05/16 09/21/16 History Colchicine 0.5 tablet PO QOTHER DAY #0 01/08/16 09/21/16 Rx Allopurinol [Zyloprim] 150 mg PO DAILY #30 mg 02/06/16 09/21/16 Rx Aspirin [Ecotrin] 81 mg PO DAILY #100 tablet. 02/06/16 09/21/16 Rx Furosemide Tab [Lasix Tab] 40 mg PO DAILY W/BREAKFAST #30 02/06/16 09/21/16 Rx tablet NIFEdipine [Nifedipine ER] 60 mg PO DAILY #120 tablet.er 02/06/16 09/21/16 Rx Sodium Bicarb Tab 325 mg PO BID 09/21/16 09/21/16 History Albuterol/Ipratropium Neb [Duoneb] 3 ml RESP TX RT Q6H PRN #60 10/03/16 Rx Amiodarone Tab [Cordarone Tab] 200 mg PO DAILY #30 tablet 10/03/16 Rx Docusate Sodium Cap [Colace Cap] 100 mg PO BID #60 capsule 10/03/16 Rx Furosemide Tab [Lasix Tab] 80 mg PO DAILY #30 tablet 04/24/17 Rx HYDROcodone/ACETAMIN 10-325 [[facility] [place] 1 tablet PO Q4H PRN #30 tablet 10/03/16 Rx 10-325] Insulin NPH [HumuLIN N] 22 unit SUBCUT BID #100 unit 10/03/16 Rx Lactulose Liquid [Chronulac] 20 gm PO Q6H PRN #30 10/03/16 Rx Metoprolol Tartrate Tab [Lopressor 25 mg PO BID #60 tablet 10/03/16 Rx Tab] Allergies Allergy/AdvReac Type Severity Reaction Status Date / Time steroid AdvReac Hypertensio Uncoded 10/29/16 01:18 n Medical,Surgical,& Family Hx - Medical History Cardio: History of: Cardiac Dysrhythmia (afib), Hypertension, Cardiovascular Problems (Aortic valve; DVT's) No history of: CAD, [place] Endocrine: History of: Diabetes Mellitus (IDDM), Dyslipidemia Rheumatology: History of;: Gout Respiratory: History of: COPD (Home O2 at 2L) Renal: History of: Renal Problems (metabolic acidosis with elevated serum creatinine) Gastrointestinal: History of: GERD No history of: Hemorrhoids Musculoskeletal: History of: Back/Neck Problems Other: History of: Skin Problems - Surgical History Cardiac Surgeries: Sugical HX of: Cardiac Surgery (Aortic valve replacement 2012 ) Thoracic Surgeries: Patient denies;: Organ Transplant Neurologic Surgeries: Patient denies: Neurologic Surgery HEENT Surgeries: Surgical HX of: Tonsilectomy & Adenoidectomy Abdominal Surgeries: Patient denies: Appendectomy, Cholecystectomy Orthopedic Surgeries: Surgical HX of;: Total Knee Replacement (BOTH) - Family History Family History: Reports;: Family Diabetes, Family Hypertension Denies;: Family Stroke Comment Only: Family Cancer (mother,colon. brother, prostate) - Social History Smoking Status: Former smoker Frequency of Alcohol Use: None Type of Drug Use: None Review of Systems 12 point system: reviewed and no additional remarkable complaints except as stated Exam - Vital Signs Vital signs: Period Temp Pulse Resp BP Sys/Maloney Pulse Ox Last 24 Hr 96.8 F-98.0 F 38-71 11-26 112-202/53-115 90-99 Exam: Gen.: Alert and oriented x3. ENT: Pupils equal round reactive to light. EOMs intact. Mucous membranes moist. Neck: Supple. No JVD or bruit. Cardiovascular: Regular rate and rhythm. No murmur rub or gallop Lungs: Bilateral expiratory wheezes. No rales Abdomen: Soft. Nontender. Positive bowel sounds. No organomegaly Extremities: No edema Results - Labs CBC & BMP: 10/30/16 07:47 10/30/16 04:23 Assessment and Plan (1) Chronic kidney disease, stage IV (severe) Status: Chronic Assessment and plan: 71-year-old man admitted with: * CRF stage IV. Creatinine at baseline. It tends to rise with diuresis * Diastolic CHF. Chest x-ray showed pulmonary edema on admission. Weight is 2.7 kg higher than on discharge on 10/03/2016 * COPD. He is wheezing. Pulmonary will be consulted * Pulmonary hypertension * Prosthetic aortic valve * Diabetes mellitus * Hypertension Current Visit: Yes (2) Diastolic CHF Status: Acute Current Visit: Yes Qualifiers: Congestive heart failure chronicity: acute on chronic Qualified Code(s): I50.33 - Acute on chronic diastolic (congestive) heart failure (3) Pulmonary edema Status: Acute Current Visit: Yes (4) Chronic obstructive pulmonary disease Status: Chronic Current Visit: Yes (5) Diabetes mellitus Status: Chronic Current Visit: Yes Qualifiers: Diabetes mellitus type: type 2 Diabetes mellitus complication status: with kidney complications Diabetes mellitus complication detail: with chronic kidney disease Diabetes mellitus penitentiary insulin use: with terminal operations manager use Chronic kidney disease stage: stage 4 (severe) Qualified Code(s): E11.22 - Type 2 diabetes mellitus with diabetic chronic kidney disease; N18.4 - Chronic kidney disease, stage 4 (severe); Z79.4 - alf (current) use of insulin (6) Hypertension Status: Chronic Current Visit: Yes
[2016-10-30] MEDS: NITROGLYCERIN 2% OINT 1 INCH/GM PACK TOP SCH ×2 (12:11→17:07)
[2016-10-30] MEDS: ONDANSETRON 4 MG/2 ML VIAL IV PRN (17:07)
[2016-10-31] MEDS: HEPARIN 5,000 UNIT/1 ML VIAL SUBCUT SCH ×3 (00:25→17:34)
[2016-10-31] MEDS: NITROGLYCERIN 2% OINT 1 INCH/GM PACK TOP SCH ×3 (01:27→13:23)
[2016-10-31 06:00] LABS: Calcium 7.6 MG/DL (8.5-10.1); Potassium 5.1 MMOL/L (3.5-5.1)
[2016-10-31] MEDS: COLCHICINE 0.6 MG TABLET PO SCH (09:35)
[2016-10-31] MEDS: METOPROLOL TARTRATE 25 MG TABLET PO SCH (09:36)
[2016-10-31] MEDS: PANTOPRAZOLE 40 MG TABLET PO SCH ×2 (09:36→17:33)
[2016-10-31] MEDS: HYDROXYCHLOROQUINE 200 MG TABLET PO SCH (09:36)
[2016-10-31] MEDS: ASPIRIN EC 81 MG TABLET PO SCH (09:36)
[2016-10-31] MEDS: ALLOPURINOL 300 MG TABLET PO SCH (09:36)
[2016-10-31] MEDS: MAGNESIUM OXIDE 400 MG TABLET PO SCH (09:36)
[2016-10-31] MEDS: FUROSEMIDE 40 MG/4 ML VIAL IV SCH (09:37)
[2016-10-31] MEDS: DOCUSATE SODIUM 100 MG CAPSULE PO SCH ×2 (09:37→21:57)
[2016-10-31] MEDS: AMIODARONE 200 MG TABLET PO SCH (09:37)
[2016-10-31] MEDS: hydrALAZINE 25 MG TABLET PO SCH ×3 (09:37→21:57)
[2016-10-31] MEDS: ATORVASTATIN 40 MG TABLET PO SCH (09:37)
[2016-10-31 10:02] LABS: Hemoglobin A1 (Alkaline) 97.4 % (96.5-98.5); Hemoglobin A2 (Alkaline) 2.6 % (1.5-3.5)
[2016-10-31] MEDS ORDERED: MAGNESIUM HYDROXIDE SUSP 30 ML UDCUP PO PRN (10:06)
--- NOTE | 2016-10-31 10:13 | Hospitalist Progress Note ---
Addendum entered and electronically signed by Paula Tavera NP 10/31/16 10: 41: Assessment and plan below: Chest pain: Pt. still having recurrent chest pain. Cardiology following. CHF: Cardiology following. Pt. has been diuresed. Diabetes: BS noted to be low (33, 42,62) in am. SSI being held per protocol. Will continue to monitor. Pt. reports taking 100 units of Lantus nightly at home. Hypertension: Blood pressures currently controlled. CKD: Nephrology following. Bun/creatinine improved this am. Original Note: <Paula Tavera - Last Filed: 10/31/16 10:33> Hospitalist: Subjective Interval history: Pt. seen and examined. No apparent distress noted. Family at bedside. Pt. states he is breathing better today but detailed an episode overnight in which he became very short of breath with activity. He has had recurrent episodes of chest discomfort since transfer from ICU but patient states they normally resolve on their own. Duonebs will be scheduled for patient. Bun/creatinine improved today. Nephrology, cards, and pulmonary following. Will continue to monitor. Exam - Constitutional Vitals: Period Temp Pulse Resp BP Sys/Maloney Pulse Ox Last 24 Hr 97.3 F-98.4 F 50-76 15-26 97-202/58-115 90-98 General appearance: no acute distress, over weight - Head Head exam: Present: normal inspection, normocephalic - Eye Eye exam: Present: EOMI. Absent: scleral icterus Pupils: Present: TAMIA. Absent: dilated - Respiratory Respiratory exam: Present: other (coarse) - Cardiovascular Cardiovascular exam: Present: regular rate and rhythm - GI/Abdominal GI/Abdominal exam: Present: normal bowel sounds, soft. Absent: tenderness - Extremities Exam Extremities exam: Present: normal capillary refill, full ROM, edema - Neurological Exam Neurological exam: Present: alert, oriented X3, normal gait - Psychiatric Psychiatric exam: Present: normal affect, normal mood - Skin Skin exam: Present: normal color, warm, dry Results - Labs CBC & BMP: 10/30/16 07:47 10/31/16 04:41 Lab Results: I have reviewed the past 24 hour labs <Yolis Costello - Last Filed: 10/31/16 15:56> Hospitalist: Subjective Interval history: Patient seen and examined independently of SCIENTIFIC DIRECTOR Tavera, agree with assessment and plan as documented. Exam - Constitutional Vitals: Period Temp Pulse Resp BP Sys/Maloney Pulse Ox Last 24 Hr 97.3 F-98.4 F 52-67 16-20 97-181/58-77 91-98 Results - Labs CBC & BMP: 10/30/16 07:47 10/31/16 04:41
--- NOTE | 2016-10-31 10:17 | Pulmonology Consult Note ---
History of Present Illness Chief complaint: Acute CHF History of present illness: Mr. Acosta is a 71 year old white male whom I been asked see in pulmonary consultation for evaluation and treatment. This patient was admitted with shortness of breath and dyspnea on exertion. He complained of substernal chest pain with exertion. Pain with disappear with rest. Has shortness of breath was reproducible with certain activities such as short walks. He denies a cough. He has had no sputum production. He has had no hemoptysis. The patient had a recent hospitalization here at that time he had been in congestive heart failure. He said he went home in good condition but it gradually got worse. The remainder of the review of systems is negative. Allergies. Steroid. Past history. September 2016 [facility] with acute congestive heart failure. COPD. Diabetes mellitus with a history of DKA. Atrial fibrillation. History of deep venous thrombophlebitis and pulmonary emboli. High blood pressure. History of tobacco abuse. Hyperlipidemia. Chronic renal failure. Gout. Chronic back and neck pain. Aortic valve replacement 2012. Previous right and left total knee replacements. Tonsillectomy and adenoidectomy. Possible obstructive sleep apnea. Family history. Positive for heart disease, high blood pressure, diabetes. His mother had colon cancer and a brother had prostate cancer. Social history. Does not use alcohol. Former smoker. Echocardiogram. 09/21/2016. Ejection fraction 60% with septal hypokinesis and a grade 2/6 diastolic dysfunction. There were moderately elevated filling pressures. There was a moderate increased right atrial and right ventricular size and a moderate increase in left ventricular size. There was a trace of mitral regurgitation and trace of aortic valve regurgitation. Pulmonary artery pressures were 65-70 mmHg. Lung scan. 10/29/2016. No perfusion defects. Doppler venograms. 10/29/2016. No evidence of deep venous thrombophlebitis Chest x-ray. 10/29/2016. Acute congestive heart failure. Lab. Natruretic peptide is 495. Creatinine is 3.9 with a BUN of 54 normal electrolytes. Admit white count was 10,900 with 79.696 and 8.7 neutrophils. H& H is low at 8.5/26.0 with decreased indices and elevated red blood cell distribution with. Platelets 195,000. Liver function tests are normal. Albumin is low at 3.2. Folic acid is low at 3.6 and vitamin B12 level is normal. Calcium is low at 7.6. Physical exam. Vital signs. See below Psychiatric. Oriented 3. Seen with his . Neurologic. Cranial nerves are intact. Long track motor functions intact. Sensory exam and gait were not tested. Face. Symmetrical. Lips and tongue appear to be normal. Neck. Symmetrical. No meningismus. Lymphatics. No submandibular cervical supraclavicular or epitrochlear adenopathy. Chest. A few rales. No chest wall tenderness. Heart. No definite gallop Abdomen. Nontender. No organs were palpated. Bowel sounds are present. and rectal. Deferred Lower extremities. Nothing to suggest deep venous thrombophlebitis. Arterial. Carotid upstroke is fair. Upper extremity pulses are palpable. Lower extremity pulses nonpalpable. Venous exam. Neck upper and lower extremities are normal. The remainder the physical exam is noncontributory. Impression. 1. Acute congestive heart failure. 2. Aortic valve replacement 2012 3. COPD. Past history tobacco abuse 3. Anemia. Folic acid level is low and vitamin B12 level is normal. #4 chronic renal failure 5. Low calcium and low albumin. 6. Insulin-dependent diabetes mellitus with a history of diabetic ketoacidosis 7. Hyperlipidemia 8. History of atrial fib 9. Symptoms suggestive of obstructive sleep apnea 10. Mild pulmonary hypertension. Etiology undetermined. Note elevated left ventricular filling blood pressures on echocardiogram. Previous echocardiogram was obtained when the patient was in congestive heart failure. Obstructive sleep apnea could be a contributory factor. 11. Past history of deep venous thrombophlebitis and pulmonary emboli. No evidence of either found during initial workup this admission 12. See past history Plan. 1. Diuresis. 2. Folic acid replacement 3. Check iron total iron-binding capacity 4. Follow-up chest x-ray 5. Deep venous thrombophlebitis prevention protocol Home Medications Medication Instructions Recorded Confirmed Type Atorvastatin Calcium [Lipitor] 40 mg PO DAILY 01/05/16 09/21/16 History Hydroxychloroquine Sulfate 200 mg PO QOTHER DAY 01/05/16 09/21/16 History Magnesium Oxide 420 mg PO DAILY 01/05/16 09/21/16 History Methocarbamol Tab [Robaxin Tab] 750 mg PO QID 01/05/16 09/21/16 History Omeprazole [Prilosec] 20 mg PO BID W/MEALS 01/05/16 09/21/16 History Colchicine 0.5 tablet PO QOTHER DAY #0 01/08/16 09/21/16 Rx Allopurinol [Zyloprim] 150 mg PO DAILY #30 mg 02/06/16 09/21/16 Rx Aspirin [Ecotrin] 81 mg PO DAILY #100 tablet. 02/06/16 09/21/16 Rx Furosemide Tab [Lasix Tab] 40 mg PO DAILY W/BREAKFAST #30 02/06/16 09/21/16 Rx tablet NIFEdipine [Nifedipine ER] 60 mg PO DAILY #120 tablet.er 02/06/16 09/21/16 Rx Sodium Bicarb Tab 325 mg PO BID 09/21/16 09/21/16 History Albuterol/Ipratropium Neb [Duoneb] 3 ml RESP TX RT Q6H PRN #60 10/03/16 Rx Amiodarone Tab [Cordarone Tab] 200 mg PO DAILY #30 tablet 10/03/16 Rx Docusate Sodium Cap [Colace Cap] 100 mg PO BID #60 capsule 10/03/16 Rx Furosemide Tab [Lasix Tab] 80 mg PO DAILY #30 tablet 10/03/16 Rx HYDROcodone/ACETAMIN 10-325 [[place] 1 tablet PO Q4H PRN #30 tablet 10/03/16 Rx 10-325] Insulin NPH [HumuLIN N] 22 unit SUBCUT BID #100 unit 10/03/16 Rx Lactulose Liquid [Chronulac] 20 gm PO Q6H PRN #30 10/03/16 Rx Metoprolol Tartrate Tab [Lopressor 25 mg PO BID #60 tablet 10/03/16 Rx Tab] Allergies Allergy/AdvReac Type Severity Reaction Status Date / Time steroid AdvReac Hypertensio Uncoded 10/29/16 01:18 n Exam (Pulmonay) H&P - Constitutional Vitals: Period Temp Pulse Resp BP Sys/Maloney Pulse Ox Last 24 Hr 97.3 F-98.4 F 50-76 15-26 97-202/58-115 90-98 Medical,Surgical,& Family Hx - Medical History Cardio: History of: Cardiac Dysrhythmia (afib), Hypertension, Cardiovascular Problems (Aortic valve; DVT's) No history of: CAD, [place] Endocrine: History of: Diabetes Mellitus (IDDM), Dyslipidemia Rheumatology: History of;: Gout Respiratory: History of: COPD (Home O2 at 2L) Renal: History of: Renal Problems (metabolic acidosis with elevated serum creatinine) Gastrointestinal: History of: GERD No history of: Hemorrhoids Musculoskeletal: History of: Back/Neck Problems Other: History of: Skin Problems - Surgical History Cardiac Surgeries: Sugical HX of: Cardiac Surgery (Aortic valve replacement 2012 ) Thoracic Surgeries: Patient denies;: Organ Transplant Neurologic Surgeries: Patient denies: Neurologic Surgery HEENT Surgeries: Surgical HX of: Tonsilectomy & Adenoidectomy Abdominal Surgeries: Patient denies: Appendectomy, Cholecystectomy Orthopedic Surgeries: Surgical HX of;: Total Knee Replacement (BOTH) - Family History Family History: Reports;: Family Diabetes, Family Hypertension Denies;: Family Stroke Comment Only: Family Cancer (mother,colon. brother, prostate) - Social History Smoking Status: Former smoker Frequency of Alcohol Use: None Type of Drug Use: None Results - Labs CBC & BMP: 10/30/16 07:47 10/31/16 04:41
[2016-10-31] MEDS: ALBUTEROL/IPRATROPIUM 3 ML NEB RESP TX SCH ×4 (10:27→22:38)
[2016-10-31] MEDS: INSULIN LISPRO 100 UNIT/ML SUBCUT SCH ×4 (10:40→21:54)
[2016-10-31] MEDS: NIFEdipine CC 60 MG TABLET PO SCH (10:41)
[2016-10-31] MEDS: FOLIC ACID 0.4 MG TABLET PO SCH (10:47)
[2016-10-31 10:54] LABS: % Iron Saturation 11.9 % (18-50)
--- NOTE | 2016-10-31 11:19 | Nephrology Progress Note ---
Nephrology - PN: Subj Interval history: He states his breathing is better today. He had shortness of breath last night with mild exertion. He denies chest pain Exam (PN)-Nephrology - Vital Signs Vital signs: Period Temp Pulse Resp BP Sys/Maloney Pulse Ox Last 24 Hr 97.3 F-98.4 F 50-76 15-20 97-181/58-82 90-98 Exam: Gen.: Alert and oriented x3. ENT: Pupils equal round reactive to light. EOMs intact. Mucous membranes moist. Neck: Supple. No JVD or bruit. Cardiovascular: Regular rate and rhythm. No murmur rub or gallop Lungs: No rales or wheezes Abdomen: Soft. Nontender. Positive bowel sounds. No organomegaly Extremities: No edema - Lab 10/30/16 07:47 10/31/16 04:41 Most recent lab results Calcium 7.6 MG/DL (8.5-10.1) L 10/31/16 04:41 Magnesium 2.2 MG/DL (1.8-2.4) 10/29/16 03:38 Assessment and Plan (1) Chronic kidney disease, stage IV (severe) Status: Chronic Assessment and plan: 71-year-old man admitted with: * CRF stage IV. Creatinine at baseline. It tends to rise with diuresis * Diastolic CHF. Chest x-ray showed pulmonary edema on admission. Weight is decreasing with diuresis * COPD. No wheezing today * Pulmonary hypertension * Prosthetic aortic valve * Diabetes mellitus * Hypertension Current Visit: Yes (2) Diastolic CHF Status: Acute Current Visit: Yes Qualifiers: Congestive heart failure chronicity: acute on chronic Qualified Code(s): I50.33 - Acute on chronic diastolic (congestive) heart failure (3) Pulmonary edema Status: Acute Current Visit: Yes (4) Chronic obstructive pulmonary disease Status: Chronic Current Visit: Yes (5) Diabetes mellitus Status: Chronic Current Visit: Yes Qualifiers: Diabetes mellitus type: type 2 Diabetes mellitus complication status: with kidney complications Diabetes mellitus complication detail: with chronic kidney disease Diabetes mellitus usp insulin use: with ad terminal makeup operator use Chronic kidney disease stage: stage 4 (severe) Qualified Code(s): E11.22 - Type 2 diabetes mellitus with diabetic chronic kidney disease; N18.4 - Chronic kidney disease, stage 4 (severe); 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
[2016-10-31] MEDS: MUPIROCIN 2% OINT 22 GM TUBE TOP SCH ×2 (13:23→21:57)
--- NOTE | 2016-10-31 15:04 | EKG Report ---
Stationary ECG Study [facility] Test Date: 10/31/2016 3:03:46 PM Pat Name: MALAIKA DRAKE Department: Room: 271 Gender: M Template Checker: KIMBERLEE : 1945 Requested by: Keila Means Order Number: [id number] Reading MD: MARTI BOURNE Intervals [place] Rate: 58 P: 46 NH: 234 QRS: -11 QRSD: 121 T: 57 QT: 483 QTc: 479 Interpretive Statements SINUS RHYTHM WITH PROLONGED NH INTERVAL MODERATE INTRAVENTRICULAR CONDUCTION DELAY PROLONGED QT INTERVAL Electronically Signed On 11-01-16 14:17:55 CDT by MARTI BOURNE [email or web address]
--- NOTE | 2016-10-31 16:01 | Cardiology Progress Note ---
Assessment and Plan (1) Diastolic CHF Status: Acute Current Visit: Yes Qualifiers: Congestive heart failure chronicity: acute on chronic Qualified Code(s): I50.33 - Acute on chronic diastolic (congestive) heart failure (2) Chronic kidney disease, stage IV (severe) Status: Chronic Current Visit: Yes (3) Diabetes mellitus Status: Chronic Current Visit: Yes Qualifiers: Diabetes mellitus type: type 2 Diabetes mellitus complication status: with kidney complications Diabetes mellitus complication detail: with chronic kidney disease Diabetes mellitus group home insulin use: with group home use Chronic kidney disease stage: stage 4 (severe) Qualified Code(s): E11.22 - Type 2 diabetes mellitus with diabetic chronic kidney disease; N18.4 - Chronic kidney disease, stage 4 (severe); Z79.4 - jail (current) use of insulin (4) Hypertension Status: Chronic Current Visit: Yes (5) Dyslipidemia Status: Chronic Current Visit: No (6) Anemia Status: Chronic Current Visit: Yes (7) Atrial flutter Status: Acute Current Visit: Yes Cardiology - PN: Subj Interval history: Hub Lead: Dr. Franklin PCP: Dr. Min Summary: Mr. Acosta is a 71-year-old male with a past medical history of diabetes, hypertension, diastolic heart failure, paroxysmal atrial fibrillation (He had been on Coumadin in the past but it was stopped at the [facility] because of noncompliance and difficulty keeping the pro time therapeutic), chronic renal insufficiency, aortic stenosis (now status post tissue aortic valve replacement), history of pulmonary embolism, untreated obstructive sleep apnea and GERD. Patient was admitted to [facility] with recurrent diastolic heart failure. Echo Doppler done September 21, 2016 showed ejection fraction of 60% with grade 2 diastolic dysfunction, moderate dilated left atrium, mitral annular calcification, the aortic tissue valve was sclerotic but open widely. The right ventricle is dilated severe TR PA pressure 65-70 with no effusion. October 31, 2016 Update - Patient was seen and examine on the telemetry unit. Patient resting in bed in no acute distress. Denies chest pain, heaviness and tightness. After reviewing tele monitor, it appears that patient had paroxysmal atrial flutter earlier this morning. EKG was obtained and he had already converted back to sinus bradycardia. According to his I's and O's, his weight is down since admission. Diuresing well. Vital signs stable. Assessment/plan: 1. RECURRENT DIASTOLIC HEART FAILURE - Echo Doppler done September 21, 2016 showed ejection fraction of 60% with grade 2 diastolic dysfunction. Continue current plan of care with Lasix. Avoiding CANDY inhibitor and ARB due to fear of worsening renal function. Continue beta-jim. 2. PAROXYSMAL ATRIAL FIBRILLATION/FLUTTER - Now in sinus timothy. After reviewing tele monitor it appears that patient becomes bradycardic with heart rates in the 40's in the early hours of the morning. Will decrease patient's HS dose of beta jim at this time. Will further adjust as needed throughout his hospital stay. Continue amiodarone. He has been on Coumadin in the past but it was stopped at the [facility] because of noncompliance and difficulty keeping the pro time therapeutic. Not a candidate for anticoagulation as patient is anemic with H&H of 8.2 and 26.7. 3. HYPERTENSION - Stable at present. Continue current plan of care. 4. DIABETES - Management per attending. 5. CHRONIC RENAL FAILURE, STAGE IV - Management per Dr. Spaulding. 6. STATUS POST TISSUE AORTIC VALVE REPLACEMENT - Stable at present. Continue current plan of care. 7. GERD - Continue current plan of care with PPI. Exam (Progress Note) - Constitutional Vitals: Period Temp Pulse Resp BP Sys/Maloney Pulse Ox Last 24 Hr 97.3 F-98.4 F 52-67 16-20 97-181/58-77 91-98 General appearance: no acute distress, morbidly obese - Head Head exam: Present: normal inspection, normocephalic, atraumatic - Respiratory Respiratory exam: Present: other (Coarse breath sounds throughout). Absent: accessory muscle use, chest wall tenderness - Cardiovascular Cardiovascular exam: Present: regular rate and rhythm, systolic murmur. Absent : gallop, rubs, tachycardia - GI/Abdominal GI/Abdominal exam: Present: normal bowel sounds, ascites, hypoactive bowel sounds, soft. Absent: firm, guarding, tenderness - Extremities Exam Extremities exam: Present: normal inspection, normal capillary refill, other ( Normal lower extremity pulses.). Absent: calf tenderness, edema - Neurological Exam Neurological exam: Present: alert, oriented X3 - Psychiatric Psychiatric exam: Present: normal affect, normal mood - Skin Skin exam: Present: normal color, warm, dry Result/EKG - Labs CBC & BMP: 10/30/16 07:47 10/31/16 04:41 Lab Results: I have reviewed the past 24 hour labs Labs: Laboratory Results - last 24 hr 10/30/16 10/30/16 10/30/16 07:47 07:47 11:12 WBC 8.5 RBC 3.16 L Hgb 8.2 L Hct 26.7 L MCV 84.5 L MCH 26 L MCHC 30.7 L RDW 16.4 Plt Count 167 MPV 10.0 Neut % (Auto) 75.0 H Lymph % (Auto) 10.3 L [place] % (Auto) 7.1 Eos % (Auto) 6.3 Baso % (Auto) 0.7 Neut # (Auto) 6.4 Lymph # (Auto) 0.9 L [place] # (Auto) 0.6 Eos # (Auto) 0.5 Baso # (Auto) 0.1 Immature Gran % 0.6 Nucleated RBC % 0.0 Immature Gran # 0.05 Nucleated RBCs # 0.00 Anemia Panel Interp ESR Westergren 96 H Absolute Retic 0.1 Percent Retic 2.6 H Retic Hgb Equivalent 25.3 L Hemoglobin A1 97.4 Hemoglobin A2 2.6 Hgb ELP Interp Sodium Potassium Chloride Carbon Dioxide Anion Gap BUN Creatinine GFR Calculation BUN/Creatinine Ratio Glucose POC Glucose 92 Calculated Osmolality Calcium Iron TIBC % Saturation Vitamin B12 438 25-OH Vitamin D Total Folate 3.6 L 10/30/16 10/30/16 10/31/16 16:24 21:32 04:39 WBC RBC Hgb Hct MCV MCH MCHC RDW Plt Count MPV Neut % (Auto) Lymph % (Auto) [place] % (Auto) Eos % (Auto) Baso % (Auto) Neut # (Auto) Lymph # (Auto) [place] # (Auto) Eos # (Auto) Baso # (Auto) Immature Gran % Nucleated RBC % Immature Gran # Nucleated RBCs # Anemia Panel Interp ESR Westergren Absolute Retic Percent Retic Retic Hgb Equivalent Hemoglobin A1 Hemoglobin A2 Hgb ELP Interp Sodium Potassium Chloride Carbon Dioxide Anion Gap BUN Creatinine GFR Calculation BUN/Creatinine Ratio Glucose POC Glucose 72 L 135 H Calculated Osmolality Calcium Iron 26 L TIBC 218 L % Saturation 11.9 L Vitamin B12 25-OH Vitamin D Total Folate 10/31/16 10/31/16 10/31/16 04:39 04:41 08:06 WBC RBC Hgb Hct MCV MCH MCHC RDW Plt Count MPV Neut % (Auto) Lymph % (Auto) [place] % (Auto) Eos % (Auto) Baso % (Auto) Neut # (Auto) Lymph # (Auto) [place] # (Auto) Eos # (Auto) Baso # (Auto) Immature Gran % Nucleated RBC % Immature Gran # Nucleated RBCs # Anemia Panel Interp ESR Westergren Absolute Retic Percent Retic Retic Hgb Equivalent Hemoglobin A1 Hemoglobin A2 Hgb ELP Interp Sodium 136 Potassium 5.1 Chloride 102 Carbon Dioxide 24 Anion Gap 15.1 H BUN 54 H Creatinine 3.90 H GFR Calculation 21 BUN/Creatinine Ratio 13.00 Glucose 62 L POC Glucose 59 L Calculated Osmolality 284.0 Calcium 7.6 L Iron TIBC % Saturation Vitamin B12 25-OH Vitamin D Total 7.3 Folate 10/31/16 10/31/16 11:48 14:53 WBC RBC Hgb Hct MCV MCH MCHC RDW Plt Count MPV Neut % (Auto) Lymph % (Auto) [place] % (Auto) Eos % (Auto) Baso % (Auto) Neut # (Auto) Lymph # (Auto) [place] # (Auto) Eos # (Auto) Baso # (Auto) Immature Gran % Nucleated RBC % Immature Gran # Nucleated RBCs # Anemia Panel Interp ESR Westergren Absolute Retic Percent Retic Retic Hgb Equivalent Hemoglobin A1 Hemoglobin A2 Hgb ELP Interp Sodium Potassium Chloride Carbon Dioxide Anion Gap BUN Creatinine GFR Calculation BUN/Creatinine Ratio Glucose POC Glucose 81 121 H Calculated Osmolality Calcium Iron TIBC % Saturation Vitamin B12 25-OH Vitamin D Total Folate
[2016-10-31] MEDS: ALUMINUM/MAGNES/SIMETH MAX STR 30 ML UDCUP PO PRN (17:33)
[2016-11-01] MEDS: HEPARIN 5,000 UNIT/1 ML VIAL SUBCUT SCH ×3 (00:57→15:46)
[2016-11-01] MEDS: ALBUTEROL/IPRATROPIUM 3 ML NEB RESP TX SCH ×5 (03:16→20:08)
[2016-11-01 05:11] LABS: Basophils # 0.1 10*3/uL (0.0-0.2); Basophils % 0.7 % (0.0-0.8); Eosinophils # 0.5 10*3/uL (0.0-0.87); Eosinophils % 6.7 % (0.00-10.9); Hematocrit 23.9 VOL% (42.0-52.0); Hemoglobin 7.6 GM/DL (14.0-18.0); Immature Granulocytes % 0.4 %; Immature Granulocytes Absolute 0.03 #; Lymphocytes # 0.6 10*3/uL (1.4-4.0); Lymphocytes % 7.7 % (21.2-54.2); Mean Corpuscular HGB Conc 31.8 GM/DL (32-36); Mean Corpuscular Hemoglobin 26 PG (27-34); Mean Corpuscular Volume 81.8 FL (87-102); Mean Platelet Volume 10.9 FL (9.6-12.0); Monocytes # 0.7 10*3/uL (0.11-0.8); Monocytes % 9.7 % (1.7-12.7); Neutrophils # 5.7 10*3/uL (1.4-7.4); Neutrophils % 74.8 % (38.7-73.9); Platelet Count 176 T/CUMM (130-400); Red Blood Count 2.92 MC/CUMM (3.8-5.5); Red Cell Distribution Width 16.6 % (9.3-17.3); White Blood Count 7.6 T/CUMM (4-12)
[2016-11-01 05:47] LABS: Calcium 7.7 MG/DL (8.5-10.1); Magnesium 2.1 MG/DL (1.8-2.4); Potassium 5.7 MMOL/L (3.5-5.1)
[2016-11-01 06:22] LABS: Risk Ratio 2.94; VLDL CHOLESTEROL 24.8 MG/DL
--- NOTE | 2016-11-01 07:19 | EKG Report ---
Stationary ECG Study [facility] Test Date: 11/01/2016 7:18:56 AM Pat Name: MALAIKA DRAKE Department: Room: 271 Gender: M Door Opener: KIMBERLEE : 1945 Requested by: Keila Means Order Number: [id number] Reading MD: MARTI BOURNE Intervals Russell Rate: 77 P: -17 MA: 198 QRS: -15 QRSD: 117 T: 110 QT: 413 QTc: 445 Interpretive Statements SINUS RHYTHM MILD INTRAVENTRICULAR CONDUCTION DELAY NONSPECIFIC T-WAVE ABNORMALITY Electronically Signed On 11-01-16 14:47:36 CDT by MARTI BOURNE [email or web address]
[2016-11-01] MEDS: ONDANSETRON 4 MG/2 ML VIAL IV PRN (08:45)
--- NOTE | 2016-11-01 10:38 | Pulmonology Progress Note ---
Pulmonary - PN: Subj Interval history: This is a 71-year-old white male. I saw him in pulmonary consultation 2016. My impressions were. 1. Acute congestive heart failure. 2. Aortic valve replacement 2012 3. COPD. Past history tobacco abuse 3.1 Anemia. Folic acid level is low and vitamin B12 level is normal. #4 chronic renal failure 5. Low calcium and low albumin. 6. Insulin-dependent diabetes mellitus with a history of diabetic ketoacidosis 7. Hyperlipidemia 8. History of atrial fib 9. Symptoms suggestive of obstructive sleep apnea 10. Mild pulmonary hypertension. Etiology undetermined. Note elevated left ventricular filling blood pressures on echocardiogram. Previous echocardiogram was obtained when the patient was in congestive heart failure. Obstructive sleep apnea could be a contributory factor. 11. Past history of deep venous thrombophlebitis and pulmonary emboli. No evidence of either found during initial workup this admission 12. See past history 11/01/2016. Chest x-rays are pending. I have ordered the EPA and lateral for today and tomorrow. Patient still has shortness of breath and he complains of chest pain with exertion. To me this chest pain is worrisome for cardiac angina. Pulmonary hypertension can sometimes cause similar pain. Last admission the patient's pulmonary artery pressures were 65-70 mmHg. This echocardiogram was obtained while the patient was in congestive heart failure. I am going to order a repeat echocardiogram for comparison pulmonary artery pressures. Patient's on Procardia XL 60 which is a good medicine for pulmonary hypertension. We could go higher. We could add Revatio if it appears safe from a cardiology standpoint. Occasionally Apresoline works for pulmonary hypertension. Apresoline could be added if needed to help with cardiac output. Patient's H&H is 7.6/23.9. He is low folic acid. His B12 is normal. He also is low on iron. I have started replacement with iron and also folic acid. His vitamin D level is low and vitamin D replacement has been started. I am going to transfuse the patient with a unit of blood today and if he tolerates this well will probably should transfuse another unit tomorrow. This will certainly improve his oxygen carrying capacity. BNP is pending. Note sedimentation rate is 96. Doppler venograms were negative for deep venous thrombophlebitis. Ventilation perfusion lung scan showed no perfusion defects. Physical exam. Vital signs. See below. Face is symmetrical. Lips and tongue are normal Neck. Symmetrical no meningismus. Lymphatics. No submandibular cervical supraclavicular or epitrochlear adenopathy. Chest is fairly clear Heart lateral PMI Abdomen. Nontender. Positive bowel sounds Lower extremities. Skin no evidence of chronic venous stasis. No edema. Neurologic. Cranial nerves are intact. Long track motor functions intact. Gait was not tested. Psychiatric. Oriented 3. The remainder the physical exam is noncontributory. Plan. 11/01/2016. See my note above. See numbers 1 through 9 below 1. Diuresis. Watch BMP. 2. Replace folic acid 3. Replace iron 4. Blood transfusion 5. Deep venous thrombophlebitis prevention protocol 6. Replace vitamin D 7. Follow-up chest x-ray #8. Repeat echocardiogram. Consider increase of Procardia. Consider Revatio say from a cardiology standpoint. An outlier for pulmonary hypertension would be Apresoline. Exam (Progress Note) - Constitutional Vitals: Period Temp Pulse Resp BP Sys/Maloney Pulse Ox Last 24 Hr 97.1 F-98.4 F 52-79 18-20 129-156/60-77 93-98 Results - Labs CBC & BMP: 11/01/16 04:19 11/01/16 04:19
[2016-11-01] MEDS ORDERED: SODIUM CHLORIDE 0.9% 250 ML IV PRN (10:44)
--- NOTE | 2016-11-01 11:17 | XRay Report ---
XR chest 2V Indication: Congestive heart Comparison: Chest x-ray dated October 29, 2016 Technique: Frontal and lateral views of the chest Findings: Continued cardiomegaly status post sternotomy. Mildly increased bilateral perihilar opacification suggesting worsened pulmonary edema/CHF. Osseous and surrounding soft tissue structures appear grossly unchanged. IMPRESSION: As above. PROCEDURE INTERPRETED AT [facility] DEPARTMENT OF RADIOLOGY Final Report Signed by: Dr Oliver Lomax
[2016-11-01] MEDS: ASPIRIN EC 81 MG TABLET PO SCH (12:05)
[2016-11-01] MEDS: CHOLECALCIFEROL 1,000 UNIT TABLET PO SCH (12:05)
[2016-11-01] MEDS: hydrALAZINE 25 MG TABLET PO SCH ×3 (12:06→22:20)
[2016-11-01] MEDS: MAGNESIUM OXIDE 400 MG TABLET PO SCH (12:06)
[2016-11-01] MEDS: METOPROLOL TARTRATE 25 MG TABLET PO SCH ×2 (12:07→22:20)
[2016-11-01] MEDS: ATORVASTATIN 40 MG TABLET PO SCH (12:07)
[2016-11-01] MEDS: FUROSEMIDE 40 MG/4 ML VIAL IV SCH (12:08)
[2016-11-01] MEDS: DOCUSATE SODIUM 100 MG CAPSULE PO SCH ×2 (12:11→22:20)
[2016-11-01] MEDS: FOLIC ACID 0.4 MG TABLET PO SCH (12:11)
[2016-11-01] MEDS: AMIODARONE 200 MG TABLET PO SCH (12:12)
[2016-11-01] MEDS: ALLOPURINOL 300 MG TABLET PO SCH (12:13)
[2016-11-01] MEDS: PANTOPRAZOLE 40 MG TABLET PO SCH ×2 (12:13→18:32)
[2016-11-01] MEDS: MUPIROCIN 2% OINT 22 GM TUBE TOP SCH ×2 (12:28→22:21)
[2016-11-01] MEDS: INSULIN LISPRO 100 UNIT/ML SUBCUT SCH ×4 (12:30→22:23)
--- NOTE | 2016-11-01 13:50 | Cardiology Progress Note ---
Assessment and Plan (1) Diastolic CHF Status: Acute Assessment and plan: See plan of care listed below. Current Visit: Yes Qualifiers: Congestive heart failure chronicity: acute on chronic Qualified Code(s): I50.33 - Acute on chronic diastolic (congestive) heart failure (2) Chronic kidney disease, stage IV (severe) Status: Chronic Assessment and plan: See plan of care listed below. Current Visit: Yes (3) Diabetes mellitus Status: Chronic Assessment and plan: See plan of care listed below. 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 Current Visit: Yes (5) Dyslipidemia Status: Chronic Assessment and plan: See plan of care listed below. Current Visit: No (6) Anemia Status: Chronic Assessment and plan: See plan of care listed below. Current Visit: Yes (7) Atrial flutter Status: Chronic Assessment and plan: See plan of care listed below. Current Visit: Yes (8) Second degree AV block Status: Acute Assessment and plan: See plan of care listed below. Current Visit: Yes (9) Paroxysmal atrial fibrillation Status: Chronic Assessment and plan: See plan of care listed below. Current Visit: Yes (10) Status post aortic valve replacement with bioprosthetic valve Status: Chronic Assessment and plan: See plan of care listed below. Current Visit: Yes Cardiology - PN: Subj Interval history: Site Damage Prevention Technician: Dr. Franklin PCP: Dr. Min Summary: Mr. Acosta is a 71-year-old male with a past medical history of diabetes, hypertension, diastolic heart failure, paroxysmal atrial fibrillation (He had been on Coumadin in the past but it was stopped at the [place] because of noncompliance and difficulty keeping the pro time therapeutic), chronic renal insufficiency, aortic stenosis (now status post tissue aortic valve replacement), history of pulmonary embolism, untreated obstructive sleep apnea and GERD. Patient was admitted to [facility] with recurrent diastolic heart failure. Chest x-ray on admission revealed pulmonary edema. Echo Doppler done September 21, 2016 showed ejection fraction of 60% with grade 2 diastolic dysfunction, moderate dilated left atrium, mitral annular calcification, the aortic tissue valve was sclerotic but open widely. The right ventricle is dilated severe TR PA pressure 65-70 with no effusion. Patient has been anemic throughout this admission. Suspect this is anemia of chronic disease as patient does have history of chronic renal failure. Currently being managed by Dr. Pipo Spaulding. Cardiology was consulted for further assistance in the management of his diastolic heart failure. November 01, 2016 Update - Patient was seen and examine on the telemetry unit. Patient resting in bed in no acute distress. Denies chest pain, heaviness and tightness. Patient had no further episodes of atrial flutter overnight. EKG this morning reveals sinus rhythm with heart rates in the 70s. According to his I's and O's, his weight is unchanged overnight. Continues to diurese well with IV Lasix. BNP this morning 404. However, creatinine is rising, today 4.4 with potassium of 5.7. Nephrology is following. Will follow his recommendations. H&H this morning at 7.6 and 23.9. Patient will receive blood transfusion today. Vital signs stable. Currently normal sinus rhythm with heart rates in the 70s without any overt arrhythmias or ectopy noted. Assessment/plan: 1. CHF, RECURRENT DIASTOLIC HEART FAILURE - This is acute on chronic. Echo Doppler done September 21, 2016 revealed ejection fraction of 60% with grade 2 diastolic dysfunction. Continue current plan of care with Lasix. Avoiding CANDY inhibitor and ARB due to fear of worsening renal function. Continue beta- jim. At this point, we will cut back patient's Lasix to 40 mg IV daily as patient's creatinine is rising daily. Strict I's and O's. Daily weights. 2. PAROXYSMAL ATRIAL FIBRILLATION/FLUTTER - Now in sinus rhythm. No further episodes of atrial flutter overnight. Continue amiodarone and beta-jim. He has been on Coumadin in the past but it was stopped at the [place] because of noncompliance and difficulty keeping the pro time therapeutic. Not a candidate for anticoagulation as patient has profound anemia. Severe CKD limits options with new NOAC agents. Continue aspirin. 3. HYPERTENSION - Stable at present. Continue current plan of care. 4. DIABETES - Management per attending. 5. CHRONIC RENAL FAILURE, STAGE IV - Management per Dr. Spaulding. Creatinine is rising. Today it is 4.4 with a potassium of 5.7. At this point, I will decrease patient's Lasix dose to 40 mg daily and await further recommendations per Dr. Spaulding. 6. STATUS POST TISSUE AORTIC VALVE REPLACEMENT - Stable at present. Continue current plan of care. 7. GERD - Continue current plan of care with PPI. 8. ANEMIA - This is likely anemia of chronic disease as patient has chronic renal failure. H&H today is noted to be 7.6 and 23.9. No overt bleeding noted. Patient will be transfused with packed red blood cells today. Daily CBC. 9. UNTREATED NOBLE - The patient did not show up for his sleep study test. Patient needs sleep study. In all likelihood, he has obstructive sleep apnea. 10. SECOND DEGREE AV BLOCK, MOBITZ TYPE ONE - Occasional Mobitz type I second- degree AV block noted per telemetry. He is asymptomatic, having more bradycardia during the nighttime sleeping hours. He needs to undergo sleep evaluation. We will consult Dr. Ca. Further plan and addendum to follow per Dr. Moseley. Exam (Progress Note) - Constitutional Vitals: Period Temp Pulse Resp BP Sys/Maloney Pulse Ox Last 24 Hr 97.1 F-98.4 F 53-99 18-20 128-145/55-67 93-99 Exam: General appearance: no acute distress, morbidly obese - Head Head exam: Present: normal inspection, normocephalic, atraumatic - Respiratory Respiratory exam: Present: Lung sounds clear throughout. Absent: accessory muscle use, chest wall tenderness, rales and wheezing - Cardiovascular Cardiovascular exam: Present: regular rate and rhythm, systolic murmur. Absent : gallop, rubs, tachycardia - GI/Abdominal GI/Abdominal exam: Present: normal bowel sounds, soft and nontender. Absent: firm, guarding, tenderness - Extremities Exam Extremities exam: Present: normal inspection, normal capillary refill, other ( Normal lower extremity pulses.). Absent: calf tenderness, edema - Neurological Exam Neurological exam: Present: alert, oriented X3 - Psychiatric Psychiatric exam: Present: normal affect, normal mood - Skin Skin exam: Present: normal color, warm, dry Result/EKG - Labs CBC & BMP: 11/01/16 04:19 11/01/16 04:19 Lab Results: I have reviewed the past 24 hour labs Labs: Laboratory Results - last 24 hr 10/31/16 10/31/16 10/31/16 14:53 15:57 19:52 WBC RBC Hgb Hct MCV MCH MCHC RDW Plt Count MPV Neut % (Auto) Lymph % (Auto) [place] % (Auto) Eos % (Auto) Baso % (Auto) Neut # (Auto) Lymph # (Auto) [place] # (Auto) Eos # (Auto) Baso # (Auto) Immature Gran % Nucleated RBC % Immature Gran # Nucleated RBCs # Sodium Potassium Chloride Carbon Dioxide Anion Gap BUN Creatinine GFR Calculation BUN/Creatinine Ratio Glucose POC Glucose 121 H 135 H 191 H Calculated Osmolality Uric Acid Calcium Magnesium B-Natriuretic Peptide Triglycerides Cholesterol LDL Cholesterol VLDL Cholesterol HDL Cholesterol Heart Disease Risk Ratio Blood Type Antibody Screen Crossmatch 11/01/16 11/01/16 11/01/16 04:19 04:19 04:19 WBC 7.6 RBC 2.92 L Hgb 7.6 L Hct 23.9 L MCV 81.8 L MCH 26 L MCHC 31.8 L RDW 16.6 Plt Count 176 MPV 10.9 Neut % (Auto) 74.8 H Lymph % (Auto) 7.7 L [place] % (Auto) 9.7 Eos % (Auto) 6.7 Baso % (Auto) 0.7 Neut # (Auto) 5.7 Lymph # (Auto) 0.6 L [place] # (Auto) 0.7 Eos # (Auto) 0.5 Baso # (Auto) 0.1 Immature Gran % 0.4 Nucleated RBC % 0.0 Immature Gran # 0.03 Nucleated RBCs # 0.00 Sodium 136 Potassium 5.7 H Chloride 101 Carbon Dioxide 26 Anion Gap 14.7 BUN 59 H Creatinine 4.40 H GFR Calculation 18 BUN/Creatinine Ratio 13.00 Glucose 167 H POC Glucose Calculated Osmolality 292.0 Uric Acid Calcium 7.7 L Magnesium 2.1 B-Natriuretic Peptide Triglycerides 124 Cholesterol 106 LDL Cholesterol 60.0 VLDL Cholesterol 24.8 HDL Cholesterol 36 L Heart Disease Risk Ratio 2.94 Blood Type Antibody Screen Crossmatch 11/01/16 11/01/16 11/01/16 04:19 07:45 09:46 WBC RBC Hgb Hct MCV MCH MCHC RDW Plt Count MPV Neut % (Auto) Lymph % (Auto) [place] % (Auto) Eos % (Auto) Baso % (Auto) Neut # (Auto) Lymph # (Auto) [place] # (Auto) Eos # (Auto) Baso # (Auto) Immature Gran % Nucleated RBC % Immature Gran # Nucleated RBCs # Sodium Potassium Chloride Carbon Dioxide Anion Gap BUN Creatinine GFR Calculation BUN/Creatinine Ratio Glucose POC Glucose 181 H Calculated Osmolality Uric Acid Calcium Magnesium B-Natriuretic Peptide 404 H Triglycerides Cholesterol LDL Cholesterol VLDL Cholesterol HDL Cholesterol Heart Disease Risk Ratio Blood Type A POSITIVE Antibody Screen Negative Crossmatch See Detail 11/01/16 11/01/16 11/01/16 09:46 11:48 Unknown WBC RBC Hgb Hct MCV MCH MCHC RDW Plt Count MPV Neut % (Auto) Lymph % (Auto) [place] % (Auto) Eos % (Auto) Baso % (Auto) Neut # (Auto) Lymph # (Auto) [place] # (Auto) Eos # (Auto) Baso # (Auto) Immature Gran % Nucleated RBC % Immature Gran # Nucleated RBCs # Sodium Potassium Chloride Carbon Dioxide Anion Gap BUN Creatinine GFR Calculation BUN/Creatinine Ratio Glucose POC Glucose 185 H Calculated Osmolality Uric Acid 8.6 H Calcium Magnesium B-Natriuretic Peptide Triglycerides Cholesterol LDL Cholesterol VLDL Cholesterol HDL Cholesterol Heart Disease Risk Ratio Blood Type A POSITIVE Antibody Screen Crossmatch
[2016-11-01] MEDS ORDERED: FUROSEMIDE 40 MG/4 ML VIAL IV SCH (14:27)
--- NOTE | 2016-11-01 14:48 | Hospitalist Progress Note ---
Hospitalist: Subjective Interval history: Pt is awaiting blood transfusion 1 U pRBCs today. Creatinine continues to increase. No fever. Nurse reports pt stated SOB better but he states to me it is unchanged. Pt has lost 7KG in the last 3 days. No BM xm 3 days and states his appetite is down. Wheezing intermittently Exam - Constitutional Vitals: Period Temp Pulse Resp BP Sys/Maloney Pulse Ox Last 24 Hr 97.1 F-98.4 F 53-99 18-20 128-145/55-67 93-99 Exam: A and O x 3 RRR no M faint expiratory wheezes, nonlabored. soft, NT, ND, +BS Warm no c/c/e Results - Labs CBC & BMP: 11/01/16 04:19 11/01/16 04:19 - Impressions (1) Chest pain (atypical) Status: Acute Assessment and plan: Patient has been having intermittent episodes of chest discomfort. He is on subcu heparin and VQ scan normal. Venous Doppler studies were negative for DVT. Change to q12h heparin. off IV nitroglycerin. Serial cardiac isoenzymes have not been significantly elevated. Cardiology following. Further evaluation per cards. Current Visit: Yes (2) Acute on chronic Diastolic CHF (grade 2 diastolic) exacerbation Status: Acute Assessment and plan: Patient was admitted with recurrent decompensated diastolic heart failure. Will continue current medical therapy on IV Lasix and metoprolol. Cardiology is following. Current Visit: Yes Qualifiers: Congestive heart failure chronicity: acute on chronic Qualified Code(s): I50.33 - Acute on chronic diastolic (congestive) heart failure (3) Diabetes mellitus type 2 with recent hypoglycemia- improved Status: Chronic Current Visit: Yes Qualifiers: Diabetes mellitus type: type 2 Diabetes mellitus complication status: with kidney complications Diabetes mellitus complication detail: with chronic kidney disease Diabetes mellitus alf insulin use: with alf use Chronic kidney disease stage: stage 4 (severe) Qualified Code(s): E11.22 - Type 2 diabetes mellitus with diabetic chronic kidney disease; N18.4 - Chronic kidney disease, stage 4 (severe); Z79.4 - FDC (current) use of insulin - Cont I.S.S and accuchecks (4) Hypertension essential Status: Chronic Assessment and plan: Blood pressures currently well controlled. His current medical regimen. Off IV nitroglycerin. Cards following. Current Visit: Yes (5) Acute renal failure on CKD (chronic kidney disease) stage 4 with hyperkalemia Status: Chronic Assessment and plan: Nephrology following. Creatinine increasing with diuresis. Will give kayexalate and recheck K in 4 hours. Serial labs. consider holding the Lasix. Current Visit: No Qualifiers: Chronic kidney disease stage: stage 4 (severe) Qualified Code(s): N18.4 - Chronic kidney disease, stage 4 (severe) (6) Paroxysmal atrial fibrillation Status: Chronic Assessment and plan: Currently remains in sinus rhythm on amiodarone therapy. Cont metoprolol. on Heparin. Defer chronic anticoagulation to cardiology as the [id number] score is elevated. Current Visit: Yes (7) Chronic obstructive pulmonary disease with chronic respiratory failure on 2L oxygen at home. Status: Chronic Assessment and plan: Continue current regimen. Current Visit: Yes (8) Dyslipidemia Status: Chronic Current Visit: No (9) Status post aortic valve replacement with bioprosthetic valve Status: Chronic Current Visit: Yes - chronic anticoagulation per cardiology (10) Symptomatic Anemia- progressive. Multifactorial due to folate, vitamin b12 and likely due to CKD - transfusing 1 U PRBCs 11/01. Recheck H and H in am. Check FOBT D/W pt and and all questions answered.
[2016-11-01] MEDS ORDERED: SODIUM POLYSTYRENE SULFATE 15 GM/60 ML BOTTLE PO STA (14:53)
--- NOTE | 2016-11-01 22:57 | Nephrology Progress Note ---
Nephrology - PN: Subj Interval history: He stated breathing was better when seen earlier today. Exam (PN)-Nephrology - Vital Signs Vital signs: Period Temp Pulse Resp BP Sys/Maloney Pulse Ox Last 24 Hr 96.9 F-98.5 F 63-99 18-21 123-138/55-65 93-99 Exam: ENT: Normal Cardiovascular: Regular rate and rhythm. No murmur rub or gallop Lungs: Rales or wheezes Extremities: No edema - Lab 11/01/16 04:19 11/01/16 18:38 Most recent lab results Calcium 7.7 MG/DL (8.5-10.1) L 11/01/16 04:19 Magnesium 2.1 MG/DL (1.8-2.4) 11/01/16 04:19 Assessment and Plan (1) Chronic kidney disease, stage IV (severe) Status: Chronic Assessment and plan: 71-year-old man admitted with: * CRF stage IV. Creatinine is rising with diuresis * Diastolic CHF. Chest x-ray showed pulmonary edema on admission. Weight is down 7 kg * COPD. No wheezing today * Pulmonary hypertension * Prosthetic aortic valve * Diabetes mellitus * Hypertension Current Visit: Yes (2) Diastolic CHF Status: Acute Current Visit: Yes Qualifiers: Congestive heart failure chronicity: acute on chronic Qualified Code(s): I50.33 - Acute on chronic diastolic (congestive) heart failure (3) Pulmonary edema Status: Acute Current Visit: Yes (4) Chronic obstructive pulmonary disease Status: Acute Current Visit: Yes (5) Diabetes mellitus Status: Chronic Current Visit: Yes Qualifiers: Diabetes mellitus type: type 2 Diabetes mellitus complication status: with kidney complications Diabetes mellitus complication detail: with chronic kidney disease 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
--- NOTE | 2016-11-01 22:59 | ECHO Report ---
Nicholas Acostaon Exam Date: 11/01/2016 15:27 Referring Physician: Technologist: Evelyn Fofana RDCS Age: 71 Ht (in): 72 Wt (lb): 265 Gender: M Exam Location: [facility] Echo Indications: Atrial flutter, Essential (primary) hypertension, anemia, dyslipidemia BP: 128 / 55 HR: 85 Rhythm: Sinus Technical Quality: IMPRESSIONS Normal left ventricular cavity size. Moderate concentric left ventricular hypertrophy. Left ventricular ejection fraction is estimated at 65 %. There is septal bounce. Grade 3 diastolic dysfunction. Moderate biatrial enlargement. Mild mitral annular and leaflet calcification with mild mitral regurgitation. Bioprosthetic aortic valve, with normal function, trace insufficiency. Severe pulmonary hypertension. MEASUREMENTS (Male / Female) Normal Values 2D ECHO LV Diastolic Diameter PLAX 3.0 cm 4.2 - 5.9 / 3.9 - 5.3 cm LV Systolic Diameter PLAX 1.9 cm LV Fractional Shortening PLAX 37.7 % IVS Diastolic Thickness 1.7 cm 0.6 - 1.0 / 0.6 - 0.9 cm LVPW Diastolic Thickness 1.9 cm 0.6 - 1.0 / 0.6 - 0.9 cm RV Internal Dim ED PLAX 3.4 cm Aortic Root Diameter 3.4 cm LA Systolic Diameter LX 4.8 cm 3.0 - 4.0 / 2.7 - 3.8 cm DOPPLER TR Peak Velocity 415.0 cm/s TR Peak Gradient 68.9 mmHg FINDINGS Left Ventricle Normal left ventricular cavity size. Moderate concentric left ventricular hypertrophy. Left ventricular ejection fraction is estimated at 65 %. Grade 3 diastolic dysfunction. Right Ventricle The right ventricle is normal in size and function. Right Atrium Moderately increased right atrial size. Left Atrium Moderately increased left atrial size. Mitral Valve Mild mitral annular and leaflet calcification with mild mitral regurgitation. Aortic Valve Bioprosthetic aortic valve, with normal function, trace insufficiency. Tricuspid Valve Morphologically normal tricuspid valve. Mild tricuspid valve regurgitation. Tricuspid regurgitation velocities suggest a PAP of 79 mmHg. Pulmonic Valve Morphologically normal pulmonic valve. Trace pulmonary valve regurgitation. Pericardium Normal pericardium without effusion. Aorta Normal ascending aorta dimension. Ozzy Moseley (Electronically Signed) Final Date: 01 Nov 2016 22:58
[2016-11-02] MEDS: ALUMINUM/MAGNES/SIMETH MAX STR 30 ML UDCUP PO PRN (00:56)
[2016-11-02] MEDS: MORPHINE 2 MG/1 ML SYRINGE IV PRN (01:10)
[2016-11-02] MEDS: ALBUTEROL/IPRATROPIUM 3 ML NEB RESP TX SCH ×7 (01:29→23:44)
[2016-11-02] MEDS: CLORAZEPATE 7.5 MG TABLET PO PRN ×4 (03:47→22:34)
[2016-11-02 06:14] LABS: Basophils % 0.6 % (0.0-0.8); Eosinophils # 0.3 10*3/uL (0.0-0.87); Hematocrit 26.9 VOL% (42.0-52.0); Hemoglobin 8.4 GM/DL (14.0-18.0); Immature Granulocytes % 0.6 %; Immature Granulocytes Absolute 0.04 #; Lymphocytes # 0.5 10*3/uL (1.4-4.0); Lymphocytes % 7.1 % (21.2-54.2); Mean Corpuscular HGB Conc 31.2 GM/DL (32-36); Mean Corpuscular Hemoglobin 26 PG (27-34); Mean Corpuscular Volume 81.8 FL (87-102); Mean Platelet Volume 10.9 FL (9.6-12.0); Monocytes # 0.8 10*3/uL (0.11-0.8); Monocytes % 11.9 % (1.7-12.7); Neutrophils % 74.8 % (38.7-73.9); Platelet Count 183 T/CUMM (130-400); Red Blood Count 3.29 MC/CUMM (3.8-5.5); Red Cell Distribution Width 16.7 % (9.3-17.3); White Blood Count 6.6 T/CUMM (4-12)
[2016-11-02 06:42] LABS: Calcium 8.5 MG/DL (8.5-10.1); Magnesium 2.2 MG/DL (1.8-2.4); Osmolality,Calculated 288.8 MOS/KG (273-304); Potassium 5.4 MMOL/L (3.5-5.1)
[2016-11-02] MEDS: HEPARIN 5,000 UNIT/1 ML VIAL SUBCUT SCH ×2 (07:15→21:20)
--- NOTE | 2016-11-02 07:25 | EKG Report ---
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
--- NOTE | 2016-11-02 08:50 | Cardiology Progress Note ---
Assessment and Plan (1) Diastolic CHF Status: Acute Assessment and plan: SEE PLAN OF CARE LISTED BELOW. Current Visit: Yes Qualifiers: Congestive heart failure chronicity: acute on chronic Qualified Code(s): I50.33 - Acute on chronic diastolic (congestive) heart failure (2) Chronic kidney disease, stage IV (severe) Status: Chronic Assessment and plan: SEE PLAN OF CARE LISTED BELOW. Current Visit: Yes (3) Diabetes mellitus Status: Chronic Assessment and plan: SEE PLAN OF CARE LISTED BELOW. 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 Current Visit: Yes (5) Dyslipidemia Status: Chronic Assessment and plan: SEE PLAN OF CARE LISTED BELOW. Current Visit: No (6) Anemia Status: Chronic Assessment and plan: SEE PLAN OF CARE LISTED BELOW. Current Visit: Yes (7) Atrial flutter Status: Chronic Assessment and plan: SEE PLAN OF CARE LISTED BELOW. Current Visit: Yes (8) Second degree AV block Status: Acute Assessment and plan: SEE PLAN OF CARE LISTED BELOW. Current Visit: Yes (9) Paroxysmal atrial fibrillation Status: Chronic Assessment and plan: SEE PLAN OF CARE LISTED BELOW. Current Visit: Yes (10) Status post aortic valve replacement with bioprosthetic valve Status: Chronic Assessment and plan: SEE PLAN OF CARE LISTED BELOW. Current Visit: Yes Cardiology - PN: Subj Interval history: End Lathe Operator: Dr. Franklin PCP: Dr. Min Summary: Mr. Acosta is a 71-year-old male with a past medical history of diabetes, hypertension, diastolic heart failure, paroxysmal atrial fibrillation (He had been on Coumadin in the past but it was stopped at the [facility] because of noncompliance and difficulty keeping the pro time therapeutic), chronic renal insufficiency, aortic stenosis (now status post tissue aortic valve replacement), history of pulmonary embolism, untreated obstructive sleep apnea and GERD. Patient was admitted to [facility] with recurrent diastolic heart failure. Chest x-ray on admission revealed pulmonary edema. Echo Doppler done September 21, 2016 showed ejection fraction of 60% with grade 2 diastolic dysfunction, moderate dilated left atrium, mitral annular calcification, the aortic tissue valve was sclerotic but open widely. The right ventricle is dilated severe TR PA pressure 65-70 with no effusion. Patient has been anemic throughout this admission. Suspect this is anemia of chronic disease as patient does have history of chronic renal failure. Currently being managed by Dr. Pipo Spaulding. Cardiology was consulted for further assistance in the management of his diastolic heart failure. 11/02/16 Update: Mr. Acosta was seen on the telemetry unit. He is on O2 via face mask this morning due to decreased oxygen saturations last night. He reports he has been a little short of breath today. He denies chest pain, heaviness, or tightness. He's had no further episodes of atrial flutter. He remains in a normal sinus rhythm with rates in the 60s-80s. His weight is up by approximately 10 pounds today but BNP is only 556 in the setting of creatinine 4.6. We'll continue with IV lasix. Hope to transition to PO soon. Potassium is down to 5.4. He received 2 units of PRBCs yesterday and H&H is improved today. Assessment/plan: 1. CHF, RECURRENT DIASTOLIC HEART FAILURE - This is acute on chronic. Echo Doppler done September 21, 2016 revealed ejection fraction of 60% with grade 2 diastolic dysfunction. Continue current plan of care with Lasix. Avoiding CANDY inhibitor and ARB due to fear of worsening renal function. Continue beta- jim. At this point, we will cut back patient's Lasix to 40 mg IV daily as patient's creatinine is rising daily. Strict I's and O's. Daily weights. 2. PAROXYSMAL ATRIAL FIBRILLATION/FLUTTER - Now in sinus rhythm. No further episodes of atrial flutter overnight. Continue amiodarone and beta-jim. He has been on Coumadin in the past but it was stopped at the [facility] because of noncompliance and difficulty keeping the pro time therapeutic. Not a candidate for anticoagulation as patient has profound anemia. Severe CKD limits options with new NOAC agents. Continue aspirin. 3. HYPERTENSION - Stable at present. Continue current plan of care. 4. DIABETES - Management per attending. 5. CHRONIC RENAL FAILURE, STAGE IV - Management per Dr. Spaulding. Creatinine is rising. Today it is 4.9 with a potassium of 5.4. We have backed off of his Lasix to 40mg IV daily and will follow the recommendations of nephrology. 6. STATUS POST TISSUE AORTIC VALVE REPLACEMENT - Stable at present. Continue current plan of care. 7. GERD - Continue current plan of care with PPI. 8. ANEMIA - This is likely anemia of chronic disease as patient has chronic renal failure. H&H today is noted to be 8.4 and 26.9. No overt bleeding noted. Daily CBC. 9. UNTREATED NOBLE - The patient did not show up for his sleep study test. Patient needs sleep study. In all likelihood, he has obstructive sleep apnea. 10. SECOND DEGREE AV BLOCK, MOBITZ TYPE ONE - Occasional Mobitz type I second- degree AV block noted per telemetry. He is asymptomatic, having more bradycardia during the nighttime sleeping hours. He needs to undergo sleep evaluation. We will consult Dr. Ca. Further plan and addendum to follow per Dr. Moseley. Exam (Progress Note) - Constitutional Vitals: Period Temp Pulse Resp BP Sys/Maloney Pulse Ox Last 24 Hr 96.9 F-100.4 F 67-99 20-26 120-183/43-74 92-99 Exam: General appearance: no acute distress, morbidly obese - Head Head exam: Present: normal inspection, normocephalic, atraumatic - Respiratory Respiratory exam: Present: Diffuse wheezes, on O2 via facemask. Absent: accessory muscle use, chest wall tenderness, rales - Cardiovascular Cardiovascular exam: Present: regular rate and rhythm, systolic murmur. Absent : gallop, rubs, tachycardia - GI/Abdominal GI/Abdominal exam: Present: normal bowel sounds, soft and nontender. Absent: firm, guarding, tenderness - Extremities Exam Extremities exam: Present: normal inspection, normal capillary refill, other ( Normal lower extremity pulses.). Absent: calf tenderness, edema - Neurological Exam Neurological exam: Present: alert, oriented X3 - Psychiatric Psychiatric exam: Present: normal affect, normal mood - Skin Skin exam: Present: normal color, warm, dry Result/EKG - Labs CBC & BMP: 11/02/16 05:28 11/02/16 05:28 Lab Results: I have reviewed the past 24 hour labs Labs: Laboratory Results - last 24 hr 11/01/16 11/01/16 11/01/16 04:19 09:46 09:46 WBC RBC Hgb Hct MCV MCH MCHC RDW Plt Count MPV Neut % (Auto) Lymph % (Auto) [place] % (Auto) Eos % (Auto) Baso % (Auto) Neut # (Auto) Lymph # (Auto) [place] # (Auto) Eos # (Auto) Baso # (Auto) Immature Gran % Nucleated RBC % Immature Gran # Nucleated RBCs # Sodium Potassium Chloride Carbon Dioxide Anion Gap BUN Creatinine GFR Calculation BUN/Creatinine Ratio Glucose POC Glucose Calculated Osmolality Uric Acid 8.6 H Calcium Magnesium B-Natriuretic Peptide 404 H Blood Type A POSITIVE Antibody Screen Negative Crossmatch See Detail 11/01/16 11/01/16 11/01/16 11:48 15:59 18:38 WBC RBC Hgb Hct MCV MCH MCHC RDW Plt Count MPV Neut % (Auto) Lymph % (Auto) [place] % (Auto) Eos % (Auto) Baso % (Auto) Neut # (Auto) Lymph # (Auto) [place] # (Auto) Eos # (Auto) Baso # (Auto) Immature Gran % Nucleated RBC % Immature Gran # Nucleated RBCs # Sodium Potassium 5.7 H Chloride Carbon Dioxide Anion Gap BUN Creatinine GFR Calculation BUN/Creatinine Ratio Glucose POC Glucose 185 H 147 H Calculated Osmolality Uric Acid Calcium Magnesium B-Natriuretic Peptide Blood Type Antibody Screen Crossmatch 11/01/16 11/01/16 11/02/16 22:23 Unknown 05:28 WBC RBC Hgb Hct MCV MCH MCHC RDW Plt Count MPV Neut % (Auto) Lymph % (Auto) [place] % (Auto) Eos % (Auto) Baso % (Auto) Neut # (Auto) Lymph # (Auto) [place] # (Auto) Eos # (Auto) Baso # (Auto) Immature Gran % Nucleated RBC % Immature Gran # Nucleated RBCs # Sodium Potassium Chloride Carbon Dioxide Anion Gap BUN Creatinine GFR Calculation BUN/Creatinine Ratio Glucose POC Glucose 147 H Calculated Osmolality Uric Acid Calcium Magnesium B-Natriuretic Peptide 556 H Blood Type A POSITIVE Antibody Screen Crossmatch 11/02/16 11/02/16 11/02/16 05:28 05:28 07:42 WBC 6.6 RBC 3.29 L Hgb 8.4 L Hct 26.9 L MCV 81.8 L MCH 26 L MCHC 31.2 L RDW 16.7 Plt Count 183 MPV 10.9 Neut % (Auto) 74.8 H Lymph % (Auto) 7.1 L [place] % (Auto) 11.9 Eos % (Auto) 5.0 Baso % (Auto) 0.6 Neut # (Auto) 5.0 Lymph # (Auto) 0.5 L [place] # (Auto) 0.8 Eos # (Auto) 0.3 Baso # (Auto) 0.0 Immature Gran % 0.6 Nucleated RBC % 0.0 Immature Gran # 0.04 Nucleated RBCs # 0.00 Sodium 137 Potassium 5.4 H Chloride 100 Carbon Dioxide 23 Anion Gap 19.4 H BUN 52 H Creatinine 4.60 H GFR Calculation 17 BUN/Creatinine Ratio 11.00 Glucose 138 H POC Glucose 147 H Calculated Osmolality 288.8 Uric Acid Calcium 8.5 Magnesium 2.2 B-Natriuretic Peptide Blood Type Antibody Screen Crossmatch - EKG EKG results: interpreted by me, sinus rhythm
--- NOTE | 2016-11-02 09:12 | XRay Report ---
XR chest 2V Indication: CHF Comparison: Chest x-ray dated November 01, 2016 Technique: Frontal and lateral views of the chest. Findings: The cardiomediastinal silhouette is stable in configuration. Continued borderline cardiomegaly status post sternotomy. Patchy bilateral pulmonary opacification with prominence of interstitial lung markings appears similar to prior examination and is consistent with pulmonary edema/CHF or pneumonia. There is probable trace bilateral pleural fluid. Visualized osseous and surrounding soft tissue structures appear grossly unchanged. IMPRESSION: No significant interval change. PROCEDURE INTERPRETED AT [facility] DEPARTMENT OF RADIOLOGY Final Report Signed by: Dr Oliver Lomax
[2016-11-02] MEDS: CHOLECALCIFEROL 1,000 UNIT TABLET PO SCH (09:49)
[2016-11-02] MEDS: HYDROXYCHLOROQUINE 200 MG TABLET PO SCH (09:49)
[2016-11-02] MEDS: COLCHICINE 0.6 MG TABLET PO SCH (09:49)
[2016-11-02] MEDS: ASPIRIN EC 81 MG TABLET PO SCH (09:49)
[2016-11-02] MEDS: FOLIC ACID 0.4 MG TABLET PO SCH (09:49)
[2016-11-02] MEDS: ATORVASTATIN 40 MG TABLET PO SCH (09:50)
[2016-11-02] MEDS: DOCUSATE SODIUM 100 MG CAPSULE PO SCH ×2 (09:50→21:16)
[2016-11-02] MEDS: MAGNESIUM OXIDE 400 MG TABLET PO SCH (09:50)
[2016-11-02] MEDS: PANTOPRAZOLE 40 MG TABLET PO SCH ×2 (09:50→16:30)
[2016-11-02] MEDS: MUPIROCIN 2% OINT 22 GM TUBE TOP SCH ×2 (09:51→21:18)
[2016-11-02] MEDS: INSULIN LISPRO 100 UNIT/ML SUBCUT SCH ×4 (09:51→21:17)
[2016-11-02] MEDS: METOPROLOL TARTRATE 25 MG TABLET PO SCH ×2 (09:51→23:38)
[2016-11-02] MEDS: AMIODARONE 200 MG TABLET PO SCH (09:51)
[2016-11-02] MEDS: hydrALAZINE 25 MG TABLET PO SCH ×3 (09:51→21:16)
[2016-11-02] MEDS: ALLOPURINOL 300 MG TABLET PO SCH (09:51)
--- NOTE | 2016-11-02 10:20 | Pulmonology Progress Note ---
Pulmonary - PN: Subj Interval history: This is a 71-year-old white male. I saw him in pulmonary consultation 2016. My impressions were. 1. Acute congestive heart failure. 2. Aortic valve replacement 2012 3. COPD. Past history tobacco abuse 3.1 Anemia. Folic acid level is low and vitamin B12 level is normal. #4 chronic renal failure 5. Low calcium and low albumin. 6. Insulin-dependent diabetes mellitus with a history of diabetic ketoacidosis 7. Hyperlipidemia 8. History of atrial fib 9. Symptoms suggestive of obstructive sleep apnea 10. Mild pulmonary hypertension. Etiology undetermined. Note elevated left ventricular filling blood pressures on echocardiogram. Previous echocardiogram was obtained when the patient was in congestive heart failure. Obstructive sleep apnea could be a contributory factor. 11. Past history of deep venous thrombophlebitis and pulmonary emboli. No evidence of either found during initial workup this admission 12. See past history 11/01/2016. Chest x-rays are pending. I have ordered the EPA and lateral for today and tomorrow. Patient still has shortness of breath and he complains of chest pain with exertion. To me this chest pain is worrisome for cardiac angina. Pulmonary hypertension can sometimes cause similar pain. Last admission the patient's pulmonary artery pressures were 65-70 mmHg. This echocardiogram was obtained while the patient was in congestive heart failure. I am going to order a repeat echocardiogram for comparison pulmonary artery pressures. Patient's on Procardia XL 60 which is a good medicine for pulmonary hypertension. We could go higher. We could add Revatio if it appears safe from a cardiology standpoint. Occasionally Apresoline works for pulmonary hypertension. Apresoline could be added if needed to help with cardiac output. Patient's H&H is 7.6/23.9. He is low folic acid. His B12 is normal. He also is low on iron. I have started replacement with iron and also folic acid. His vitamin D level is low and vitamin D replacement has been started. I am going to transfuse the patient with a unit of blood today and if he tolerates this well will probably should transfuse another unit tomorrow. This will certainly improve his oxygen carrying capacity. BNP is pending. Note sedimentation rate is 96. Doppler venograms were negative for deep venous thrombophlebitis. Ventilation perfusion lung scan showed no perfusion defects. 11/02/2016. Today's x-ray shows mild residual congestive heart failure. BNP remains elevated at 556. Noted creatinine is 4.60 with a BUN of 52 and this may falsely elevate his BNP. Patient's vitamin D is low and will order replacement. Folic acid is also low. B12 is in the normal range of 438. Posttransfusion H&H is 8.4/26.9. Iron saturation is also low. Iron has not been started. Patient has some persistent nausea. Nares are positive for MRSA. Repeat echocardiogram done 10/29/2016 shows ejection fraction 65% with grade 3 diastolic dysfunction and moderate biatrial enlargement. There is mild atrial regurgitation. Trace of aortic insufficiency. Pulmonary artery pressures are estimated to be 79 mmHg. Patient's on Procardia XL 60 and I will increase this to 120 mg daily. We did consider Revatio if cardiology feels this is safe. Would start with 20 mg every 8 hours. Alternatively we could try Apresoline 25 3 times daily which occasionally helps and may help with the patient's cardiac output. Will ask for Dr. Bueno's comment. Physical exam. Vital signs. See below. Face is symmetrical. Lips and tongue are normal Neck. Symmetrical no meningismus. Lymphatics. No submandibular cervical supraclavicular or epitrochlear adenopathy. Chest is fairly clear Heart lateral PMI Abdomen. Nontender. Positive bowel sounds Lower extremities. Skin no evidence of chronic venous stasis. No edema. Neurologic. Cranial nerves are intact. Long track motor functions intact. Gait was not tested. Psychiatric. Oriented 3. The remainder the physical exam is noncontributory. Plan. 11/01/2016. See my note above. See numbers 1 through 9 below 1. Diuresis. Watch BMP. 2. Replace folic acid 3. Replace iron 4. Blood transfusion 5. Deep venous thrombophlebitis prevention protocol 6. Replace vitamin D 7. Follow-up chest x-ray #8. Repeat echocardiogram. Consider increase of Procardia. Consider Revatio say from a cardiology standpoint. An outlier for pulmonary hypertension would be Apresoline. 9. 11/02/2016. See today's note above. Increase Procardia XL [address] to twice daily[address] Last Dr. Moseley his opinion concerning Revatio and/or Apresoline Exam (Progress Note) - Constitutional Vitals: Period Temp Pulse Resp BP Sys/Maloney Pulse Ox Last 24 Hr 96.9 F-100.4 F 67-99 16-26 120-183/43-74 92-99 Results - Labs CBC & BMP: 11/02/16 05:28 11/02/16 05:28
--- NOTE | 2016-11-02 12:16 | Sleep Medicine Consult ---
Assessment and Plan (1) Sleep disorder Status: Chronic Assessment and plan: This patient certainly has symptoms concerning for sleep apnea and with his medical comorbidities, polysomnography is indicated. He is scheduled for November 14 sleep study. We will follow-up on him while hospitalized. Current Visit: No (2) Diastolic CHF Status: Acute Assessment and plan: Untreated sleep apnea can be an exacerbating factor to diastolic CHF. Treating sleep apnea often can improve management of CHF in both systolic and diastolic dysfunction. Current Visit: Yes Qualifiers: Congestive heart failure chronicity: acute on chronic Qualified Code(s): I50.33 - Acute on chronic diastolic (congestive) heart failure (3) Hypertension Status: Chronic Assessment and plan: The prevalence rate for obstructive sleep apnea patients with hypertension is 35 %. That rate can be as high as 80% in patients who require 4 or more medications for blood pressure control. Current Visit: Yes History of Present Illness Chief complaint: Sleep apnea History of present illness: Mr. Acosta is a 71 year old male known to me from previous sleep evaluation on . He had a history of previous aortic valve replacement and had atrial fib with rapid ventricular response. He was found to have evidence of severe pulmonary hypertension and had a history of loud snoring and abnormal breathing during sleep with witnessed apneas. He has been set up for sleep study in the past but missed his appointment. He has been rescheduled for November 14. He remains symptomatic with symptoms of snoring and disrupted sleep. He usually retires to bed in the evening but stays up most of the night and sleeps throughout the day. His states that he easily will fall asleep anytime he sits still. She does note loudness of his snoring and abnormal breathing. He does awaken multiple times to urinate. Home Medications Medication Instructions Recorded Confirmed Type Omeprazole [Prilosec] 20 mg PO BID W/MEALS 01/05/16 11/02/16 History Allopurinol [Zyloprim] 150 mg PO DAILY #30 mg 02/06/16 11/02/16 Rx Sodium Bicarb Tab 325 mg PO BID 09/21/16 11/02/16 History Docusate Sodium Cap [Colace Cap] 100 mg PO BID #60 capsule 10/03/16 11/02/16 Rx Furosemide Tab [Lasix Tab] 80 mg PO DAILY #30 tablet 10/03/16 11/02/16 Rx HYDROcodone/ACETAMIN 10-325 [Gilbert 1 tablet PO Q4H PRN #30 tablet 10/03/1611/02 Rx 10-325] Metoprolol Tartrate Tab [Lopressor 25 mg PO BID #60 tablet 10/03/16 11/02/16 Rx Tab] Allergies Allergy/AdvReac Type Severity Reaction Status Date / Time steroid AdvReac Hypertensio Uncoded 10/29/16 01:18 n Review of systems: Otherwise unremarkable Exam (Pulmonay) H&P - Constitutional Vitals: Period Temp Pulse Resp BP Sys/Maloney Pulse Ox Last 24 Hr 96.9 F-100.4 F 67-91 16-26 120-183/43-74 91-99 Exam: He is alert and responsive in no acute distress. Pupils equal round reactive to light and accommodation. Extraocular movements intact. Oropharynx with class III Mallampati exam. Neck supple without adenopathy or thyromegaly. No supraclavicular adenopathy is noted. Chest with bilateral wheezes without focal rales or rhonchi. Cardiac exam reveals a regular rhythm without murmur or gallop. Abdomen obese nontender without palpable hepatosplenomegaly or mass. Extremities are without clubbing, cyanosis, or edema. Neurologically, he is grossly intact. He moves all extremities with good strength and ambulates with a normal gait. Medical,Surgical,& Family Hx - Medical History Cardio: History of: Cardiac Dysrhythmia (afib), Hypertension, Cardiovascular Problems (Aortic valve; DVT's) No history of: CAD, [place] Endocrine: History of: Diabetes Mellitus (IDDM), Dyslipidemia Rheumatology: History of;: Gout Respiratory: History of: COPD (Home O2 at 2L) Renal: History of: Renal Problems (metabolic acidosis with elevated serum creatinine) Gastrointestinal: History of: GERD No history of: Hemorrhoids Musculoskeletal: History of: Back/Neck Problems Other: History of: Skin Problems - Surgical History Cardiac Surgeries: Sugical HX of: Cardiac Surgery (Aortic valve replacement 2012 ) Thoracic Surgeries: Patient denies;: Organ Transplant Neurologic Surgeries: Patient denies: Neurologic Surgery HEENT Surgeries: Surgical HX of: Tonsilectomy & Adenoidectomy Abdominal Surgeries: Patient denies: Appendectomy, Cholecystectomy Orthopedic Surgeries: Surgical HX of;: Total Knee Replacement (BOTH) - Family History Family History: Reports;: Family Diabetes, Family Hypertension Denies;: Family Stroke Comment Only: Family Cancer (mother,colon. brother, prostate) - Social History Smoking Status: Former smoker Frequency of Alcohol Use: None Type of Drug Use: None Results - Labs CBC & BMP: 11/02/16 05:28 11/02/16 05:28 Lab Results: I have reviewed the past 24 hour labs
--- NOTE | 2016-11-02 12:40 | Hospitalist Progress Note ---
Hospitalist: Subjective Interval history: Pt states he feels less weak since getting blood transfusion. SOB better. No chest pain. Decreased cough. No BM yet per pt. Exam - Constitutional Vitals: Period Temp Pulse Resp BP Sys/Maloney Pulse Ox Last 24 Hr 96.9 F-100.4 F 67-91 16-26 120-183/43-74 91-99 Exam: A and O x 3, slumped in the bed on oxygen RRR no M faint expiratory wheezes with is audible around his neck and radiates to chest. When sitting straight up, not auscultated. nonlabored. soft, NT, ND, +BS Warm no c/c/e Results - Labs CBC & BMP: 11/02/16 05:28 11/02/16 05:28 - Impressions (1) Chest pain (atypical) Status: Acute Assessment and plan: Patient has been having intermittent episodes of chest discomfort. He is on subcu heparin and VQ scan normal. Venous Doppler studies were negative for DVT. Change to q12h heparin. off IV nitroglycerin. Serial cardiac isoenzymes have not been significantly elevated. Cardiology following. Further evaluation per cards. Current Visit: Yes (2) Acute on chronic Diastolic CHF (grade 2 diastolic) exacerbation- improved Status: Acute Assessment and plan: Patient was admitted with recurrent decompensated diastolic heart failure. Will continue current medical therapy on IV Lasix and metoprolol. ? Change to po Lasix soon. Cardiology is following. Current Visit: Yes Qualifiers: Congestive heart failure chronicity: acute on chronic Qualified Code(s): I50.33 - Acute on chronic diastolic (congestive) heart failure (3) Diabetes mellitus type 2 with recent hypoglycemia- improved Status: Chronic Current Visit: Yes Qualifiers: Diabetes mellitus type: type 2 Diabetes mellitus complication status: with kidney complications Diabetes mellitus complication detail: with chronic kidney disease Diabetes mellitus buttermaker insulin use: with [facility] use Chronic kidney disease stage: stage 4 (severe) Qualified Code(s): E11.22 - Type 2 diabetes mellitus with diabetic chronic kidney disease; N18.4 - Chronic kidney disease, stage 4 (severe); Z79.4 - 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 Off IV nitroglycerin. Cards following. Current Visit: Yes (5) Acute renal failure on CKD (chronic kidney disease) stage 4 with hyperkalemia Status: Chronic Assessment and plan: Nephrology following. Creatinine increasing with diuresis. Will give kayexalate enema as pt states she has has not had BM. Serial labs. consider holding the Lasix. Current Visit: No Qualifiers: Chronic kidney disease stage: stage 4 (severe) Qualified Code(s): N18.4 - Chronic kidney disease, stage 4 (severe) (6) Paroxysmal atrial fibrillation Status: Chronic Assessment and plan: Currently remains in sinus rhythm on amiodarone therapy. Cont metoprolol. on Heparin. Defer chronic anticoagulation to cardiology as the [id number] score is elevated. Current Visit: Yes (7) Chronic obstructive pulmonary disease with chronic respiratory failure on 2L oxygen at home. Status: Chronic Assessment and plan: Continue current regimen. Current Visit: Yes (8) Dyslipidemia Status: Chronic Current Visit: No (9) Status post aortic valve replacement with bioprosthetic valve Status: Chronic Current Visit: Yes - chronic anticoagulation per cardiology (10) Symptomatic Anemia- progressive. Multifactorial due to folate, vitamin b12 and likely due to CKD - transfusing 1 U PRBCs 11/01-11/02. Serial H and H. Awaiting FOBT D/W pt and all questions answered.
[2016-11-02] MEDS ORDERED: SODIUM POLYSTYRENE SULFATE 15 GM/60 ML BOTTLE RECTAL ONE (16:08)
[2016-11-02] MEDS: FUROSEMIDE 40 MG TABLET PO SCH (18:56)
[2016-11-02 19:18] LABS: Hematocrit 29.1 VOL% (42.0-52.0); Hemoglobin 9.5 GM/DL (14.0-18.0)
--- NOTE | 2016-11-02 21:05 | Nephrology Progress Note ---
Nephrology - PN: Subj Interval history: He states his breathing is slightly better today. Exam (PN)-Nephrology - Vital Signs Vital signs: Period Temp Pulse Resp BP Sys/Maloney Pulse Ox Last 24 Hr 96.9 F-100.4 F 70-91 16-70 118-183/56-74 85-99 Exam: ENT: Normal Cardiovascular: Regular rate and rhythm. No murmur rub or gallop Lungs: Mild expiratory wheezes Extremities: No edema - Lab 11/02/16 18:28 11/02/16 05:28 Most recent lab results Calcium 8.5 MG/DL (8.5-10.1) 11/02/16 05:28 Magnesium 2.2 MG/DL (1.8-2.4) 11/02/16 05:28 Assessment and Plan (1) Chronic kidney disease, stage IV (severe) Status: Chronic Assessment and plan: 71-year-old man admitted with: * CRF stage IV. Creatinine is rising with diuresis * Diastolic CHF. His weight is not reliable * COPD. Mild expiratory wheezes * Pulmonary hypertension * Prosthetic aortic valve * Diabetes mellitus * Hypertension * Anemia. Transfuse second unit RBC today Current Visit: Yes (2) Diastolic CHF Status: Acute Current Visit: Yes Qualifiers: Congestive heart failure chronicity: acute on chronic Qualified Code(s): I50.33 - Acute on chronic diastolic (congestive) heart failure (3) Pulmonary edema Status: Acute Current Visit: Yes (4) Chronic obstructive pulmonary disease Status: Acute Current Visit: Yes (5) Diabetes mellitus Status: Chronic Current Visit: Yes Qualifiers: Diabetes mellitus type: type 2 Diabetes mellitus complication status: with kidney complications Diabetes mellitus complication detail: with chronic kidney disease 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
[2016-11-03] MEDS: ALBUTEROL/IPRATROPIUM 3 ML NEB RESP TX SCH ×5 (04:20→20:09)
[2016-11-03 06:46] LABS: Basophils % 0.5 % (0.0-0.8); Eosinophils # 0.4 10*3/uL (0.0-0.87); Eosinophils % 5.8 % (0.00-10.9); Hematocrit 28.3 VOL% (42.0-52.0); Immature Granulocytes Absolute 0.06 #; Lymphocytes # 0.5 10*3/uL (1.4-4.0); Lymphocytes % 7.6 % (21.2-54.2); Mean Corpuscular HGB Conc 31.8 GM/DL (32-36); Mean Corpuscular Hemoglobin 26 PG (27-34); Mean Corpuscular Volume 82.3 FL (87-102); Mean Platelet Volume 10.3 FL (9.6-12.0); Monocytes # 0.8 10*3/uL (0.11-0.8); Monocytes % 12.9 % (1.7-12.7); Neutrophils # 4.4 10*3/uL (1.4-7.4); Neutrophils % 72.2 % (38.7-73.9); Platelet Count 168 T/CUMM (130-400); Red Blood Count 3.44 MC/CUMM (3.8-5.5); Red Cell Distribution Width 16.9 % (9.3-17.3); White Blood Count 6.1 T/CUMM (4-12)
[2016-11-03 07:32] LABS: Hypochromasia 1+
[2016-11-03] MEDS: FUROSEMIDE 40 MG TABLET PO SCH ×2 (08:46→15:30)
[2016-11-03] MEDS: hydrALAZINE 25 MG TABLET PO SCH (08:47)
[2016-11-03] MEDS: FOLIC ACID 0.4 MG TABLET PO SCH (08:47)
[2016-11-03] MEDS: ASPIRIN EC 81 MG TABLET PO SCH (08:47)
[2016-11-03] MEDS: METOPROLOL TARTRATE 25 MG TABLET PO SCH ×2 (08:47→22:07)
[2016-11-03] MEDS: MAGNESIUM OXIDE 400 MG TABLET PO SCH (08:47)
[2016-11-03] MEDS: DOCUSATE SODIUM 100 MG CAPSULE PO SCH ×2 (08:47→22:07)
[2016-11-03] MEDS: CLORAZEPATE 7.5 MG TABLET PO PRN ×2 (08:47→15:33)
[2016-11-03] MEDS: CHOLECALCIFEROL 1,000 UNIT TABLET PO SCH (08:47)
[2016-11-03] MEDS: PANTOPRAZOLE 40 MG TABLET PO SCH ×2 (08:48→17:11)
[2016-11-03] MEDS: ATORVASTATIN 40 MG TABLET PO SCH (08:48)
[2016-11-03] MEDS: ALLOPURINOL 300 MG TABLET PO SCH (08:48)
[2016-11-03] MEDS: AMIODARONE 200 MG TABLET PO SCH (08:49)
[2016-11-03] MEDS: MUPIROCIN 2% OINT 22 GM TUBE TOP SCH ×2 (08:49→22:07)
[2016-11-03] MEDS: HEPARIN 5,000 UNIT/1 ML VIAL SUBCUT SCH ×2 (08:52→22:07)
[2016-11-03] MEDS: INSULIN LISPRO 100 UNIT/ML SUBCUT SCH ×4 (08:53→21:00)
[2016-11-03] MEDS: ONDANSETRON 4 MG/2 ML VIAL IV PRN (09:25)
[2016-11-03 09:43] LABS: Calcium 8.2 MG/DL (8.5-10.1); Magnesium 2.3 MG/DL (1.8-2.4); Potassium 4.8 MMOL/L (3.5-5.1)
--- NOTE | 2016-11-03 12:19 | Pulmonology Progress Note ---
Pulmonary - PN: Subj Interval history: This is a 71-year-old white male. I saw him in pulmonary consultation 2016. My impressions were. 1. Acute congestive heart failure. 2. Aortic valve replacement 2012 3. COPD. Past history tobacco abuse 3.1 Anemia. Folic acid level is low and vitamin B12 level is normal. #4 chronic renal failure 5. Low calcium and low albumin. 6. Insulin-dependent diabetes mellitus with a history of diabetic ketoacidosis 7. Hyperlipidemia 8. History of atrial fib 9. Symptoms suggestive of obstructive sleep apnea 10. Mild pulmonary hypertension. Etiology undetermined. Note elevated left ventricular filling blood pressures on echocardiogram. Previous echocardiogram was obtained when the patient was in congestive heart failure. Obstructive sleep apnea could be a contributory factor. 11. Past history of deep venous thrombophlebitis and pulmonary emboli. No evidence of either found during initial workup this admission 12. See past history 11/01/2016. Chest x-rays are pending. I have ordered the EPA and lateral for today and tomorrow. Patient still has shortness of breath and he complains of chest pain with exertion. To me this chest pain is worrisome for cardiac angina. Pulmonary hypertension can sometimes cause similar pain. Last admission the patient's pulmonary artery pressures were 65-70 mmHg. This echocardiogram was obtained while the patient was in congestive heart failure. I am going to order a repeat echocardiogram for comparison pulmonary artery pressures. Patient's on Procardia XL 60 which is a good medicine for pulmonary hypertension. We could go higher. We could add Revatio if it appears safe from a cardiology standpoint. Occasionally Apresoline works for pulmonary hypertension. Apresoline could be added if needed to help with cardiac output. Patient's H&H is 7.6/23.9. He is low folic acid. His B12 is normal. He also is low on iron. I have started replacement with iron and also folic acid. His vitamin D level is low and vitamin D replacement has been started. I am going to transfuse the patient with a unit of blood today and if he tolerates this well will probably should transfuse another unit tomorrow. This will certainly improve his oxygen carrying capacity. BNP is pending. Note sedimentation rate is 96. Doppler venograms were negative for deep venous thrombophlebitis. Ventilation perfusion lung scan showed no perfusion defects. 11/02/2016. Today's x-ray shows mild residual congestive heart failure. BNP remains elevated at 556. Noted creatinine is 4.60 with a BUN of 52 and this may falsely elevate his BNP. Patient's vitamin D is low and will order replacement. Folic acid is also low. B12 is in the normal range of 438. Posttransfusion H&H is 8.4/26.9. Iron saturation is also low. Iron has not been started. Patient has some persistent nausea. Nares are positive for MRSA. Repeat echocardiogram done 10/29/2016 shows ejection fraction 65% with grade 3 diastolic dysfunction and moderate biatrial enlargement. There is mild atrial regurgitation. Trace of aortic insufficiency. Pulmonary artery pressures are estimated to be 79 mmHg. Patient's on Procardia XL 60 and I will increase this to 120 mg daily. We did consider Revatio if cardiology feels this is safe. Would start with 20 mg every 8 hours. Alternatively we could try Apresoline 25 3 times daily which occasionally helps and may help with the patient's cardiac output. Will ask for Dr. Bueno's comment. 11/03/2016. Today's chest x-ray continues to show mild pulmonary edema. I reviewed a lot of the patient's old x-rays and x-rays done 05/14/2015, 01/05/2016 and 09/26/2016 are registered representative chest x-rays when he is out of congestive heart failure. CBC is stable. The rest of today's lab is pending. Dr. Lydia Ca sleep medicine note has been reviewed and I agree with his plans. Patient's was apparently asleep on the bed. She moves her foot but she never turned over or participate in our conversation today. Santosh Courtney nurse practitioner was present. Patient's had some slight fever related to blood transfusions. I do not see anything so far that looks like amiodarone along. Amiodarone was only recently added. Procardia XL was increased to 60 mg twice a day on 11/02/2016 an attempt to treat the patient's pulmonary hypertension Physical exam. Vital signs. See below. Face is symmetrical. Lips and tongue are normal Neck. Symmetrical no meningismus. Lymphatics. No submandibular cervical supraclavicular or epitrochlear adenopathy. Chest is fairly clear Heart lateral PMI Abdomen. Nontender. Positive bowel sounds Lower extremities. Skin no evidence of chronic venous stasis. No edema. Neurologic. Cranial nerves are intact. Long track motor functions intact. Gait was not tested. Psychiatric. Oriented 3. The remainder the physical exam is noncontributory. Plan. 11/01/2016. See my note above. See numbers 1 through 9 below 1. Diuresis. Watch BMP. 2. Replace folic acid 3. Replace iron 4. Blood transfusion 5. Deep venous thrombophlebitis prevention protocol 6. Replace vitamin D 7. Follow-up chest x-ray #8. Repeat echocardiogram. Consider increase of Procardia. Consider Revatio say from a cardiology standpoint. An outlier for pulmonary hypertension would be Apresoline. 9. 11/02/2016. See today's note above. Increase Procardia XL 60 to twice daily . Last Dr. Moseley his opinion concerning Revatio and/or Apresoline 10. 11/03/2016. See today's note above. Exam (Progress Note) - Constitutional Vitals: Period Temp Pulse Resp BP Sys/Maloney Pulse Ox Last 24 Hr 96.9 F-99.8 F 70-111 16-70 118-164/57-93 85-99 Results - Labs CBC & BMP: 11/03/16 04:00 11/02/16 05:28
--- NOTE | 2016-11-03 13:40 | Cardiology Progress Note ---
Assessment and Plan (1) Chronic obstructive pulmonary disease Status: Acute Assessment and plan: 71-year-old male, history of paroxysmal A. fib, bioprosthetic aortic valve, diastolic heart failure, suspected severe NOBLE, diabetes mellitus, hypertension, hyperlipidemia. He is feeling less SOB. Still weak. -Occasional Mobitz 1 second-degree AV block. Not symptomatic. Sleep evaluation planned. His heart rate trend is fairly acceptable, I doubt it contributes significantly to his current presentation. If he develops symptomatic sick sinus, tachybradycardia, a dual-chamber pacemaker would be indicated -Paroxysmal A. fib. Continue amiodarone, low-dose beta-jim. Currently, in sinus rhythm. His anticoagulation was stopped in the past due to unstable INRs. Severe CKD limits options with new agents. He is also quite anemic. Continue aspirin. -Cont diuresis with Lasix 40 mg bid. Severe CKD. -His heart rate is more elevated now. Increase metoprolol to 25 mg twice daily. -Blood pressure is also trending higher. Increase hydralazine to 50 mg 3 times daily. If there is a reversible component in the pulmonary hypertension, this may also help with this. As per pulmonary recommendations, he could also be a candidate for Revatio. We can max out hydralazine first, up to 100 mg 3 times daily, if the blood pressure allows. Current Visit: Yes (2) Diabetes mellitus Status: Chronic Current Visit: Yes Qualifiers: Diabetes mellitus type: type 2 Diabetes mellitus complication status: with kidney complications Diabetes mellitus complication detail: with chronic kidney disease Diabetes mellitus buttermaker continuous churn insulin use: with buttermaker continuous churn use Chronic kidney disease stage: stage 4 (severe) Qualified Code(s): E11.22 - Type 2 diabetes mellitus with diabetic chronic kidney disease; N18.4 - Chronic kidney disease, stage 4 (severe); Z79.4 - residential (current) use of insulin (3) Acute CVA (cerebrovascular accident) Status: Acute Current Visit: No (4) MEGAN (acute kidney injury) Status: Resolved Current Visit: No (5) Hypertension Status: Chronic Current Visit: Yes (6) Anemia Status: Chronic Current Visit: No Cardiology - PN: Subj Interval history: He is still feeling quite weak, less short of breath. Blood pressure is mildly elevated. Sinus rhythm heart rate occasionally elevated. Exam (Progress Note) - Constitutional Vitals: Period Temp Pulse Resp BP Sys/Maloney Pulse Ox Last 24 Hr 97.5 F-99.8 F 71-111 16-22 128-164/60-93 85-99 General appearance: normal weight, morbidly obese - Head Head exam: Present: normal inspection, normocephalic - Eye Eye exam: Absent: conjunctival injection Pupils: Absent: dilated - ENT ENT exam: Present: normal external ear exam - Neck Neck exam: Present: normal inspection - Respiratory Respiratory exam: Present: clear to auscultation bilaterally, prolonged expiratory phase, wheezes - Cardiovascular Cardiovascular exam: Present: regular rate and rhythm, systolic murmur - GI/Abdominal GI/Abdominal exam: Present: normal bowel sounds, distended - Extremities Exam Extremities exam: Present: normal inspection, normal capillary refill, edema (1+ ) - Neurological Exam Neurological exam: Present: alert, oriented X3 - Psychiatric Psychiatric exam: Present: normal affect, normal mood. Absent: anxious - Skin Skin exam: Present: normal color, warm. Absent: cyanosis Result/EKG - Labs CBC & BMP: 11/03/16 04:00 11/03/16 08:54 Lab Results: I have reviewed the past 24 hour labs Labs: Laboratory Results - last 24 hr 11/02/16 11/02/16 11/02/16 05:25 15:31 18:28 WBC RBC Hgb 9.5 L Hct 29.1 L MCV MCH MCHC RDW Plt Count MPV Neut % (Auto) Lymph % (Auto) Chambers % (Auto) Eos % (Auto) Baso % (Auto) Neut # (Auto) Lymph # (Auto) Chambers # (Auto) Eos # (Auto) Baso # (Auto) Immature Gran % Nucleated RBC % Immature Gran # Nucleated RBCs # Hypochromasia Sodium Potassium Chloride Carbon Dioxide Anion Gap BUN Creatinine GFR Calculation BUN/Creatinine Ratio Glucose POC Glucose 129 H Calculated Osmolality Calcium Magnesium B-Natriuretic Peptide Crossmatch See Detail 11/02/16 11/03/16 11/03/16 19:39 04:00 07:38 WBC 6.1 RBC 3.44 L Hgb 9.0 L Hct 28.3 L MCV 82.3 L MCH 26 L MCHC 31.8 L RDW 16.9 Plt Count 168 MPV 10.3 Neut % (Auto) 72.2 Lymph % (Auto) 7.6 L Chambers % (Auto) 12.9 H Eos % (Auto) 5.8 Baso % (Auto) 0.5 Neut # (Auto) 4.4 Lymph # (Auto) 0.5 L Chambers # (Auto) 0.8 Eos # (Auto) 0.4 Baso # (Auto) 0.0 Immature Gran % 1.0 Nucleated RBC % 0.0 Immature Gran # 0.06 Nucleated RBCs # 0.00 Hypochromasia 1+ Sodium Potassium Chloride Carbon Dioxide Anion Gap BUN Creatinine GFR Calculation BUN/Creatinine Ratio Glucose POC Glucose 123 H 130 H Calculated Osmolality Calcium Magnesium B-Natriuretic Peptide Crossmatch 11/03/16 11/03/16 11/03/16 08:54 08:54 11:23 WBC RBC Hgb Hct MCV MCH MCHC RDW Plt Count MPV Neut % (Auto) Lymph % (Auto) Chambers % (Auto) Eos % (Auto) Baso % (Auto) Neut # (Auto) Lymph # (Auto) Chambers # (Auto) Eos # (Auto) Baso # (Auto) Immature Gran % Nucleated RBC % Immature Gran # Nucleated RBCs # Hypochromasia Sodium 136 Potassium 4.8 Chloride 100 Carbon Dioxide 26 Anion Gap 14.8 BUN 49 H Creatinine 4.50 H GFR Calculation 17 BUN/Creatinine Ratio 10.00 Glucose 138 H POC Glucose 170 H Calculated Osmolality 286.0 Calcium 8.2 L Magnesium 2.3 B-Natriuretic Peptide 382 H Crossmatch - EKG EKG results: interpreted by me
--- NOTE | 2016-11-03 13:45 | Nephrology Progress Note ---
Nephrology - PN: Subj Interval history: He is weak and has HALE with little exertion. No orthopnea. Exam (PN)-Nephrology - Vital Signs Vital signs: Period Temp Pulse Resp BP Sys/Maloney Pulse Ox Last 24 Hr 97.5 F-99.8 F 71-111 16-22 128-164/60-93 85-99 Exam: ENT: Normal Cardiovascular: Regular rate and rhythm. No murmur rub or gallop Lungs: Mild expiratory wheezes Extremities: No edema - Lab 11/03/16 04:00 11/03/16 08:54 Most recent lab results Calcium 8.2 MG/DL (8.5-10.1) L 11/03/16 08:54 Magnesium 2.3 MG/DL (1.8-2.4) 11/03/16 08:54 Assessment and Plan (1) Chronic kidney disease, stage IV (severe) Status: Chronic Assessment and plan: 71-year-old man admitted with: * CRF stage IV. Creatinine stable from yesterday * Diastolic CHF. His weight is variable but has decreased with diuresis * COPD. Mild expiratory wheezes present * Pulmonary hypertension * Prosthetic aortic valve * Diabetes mellitus * Hypertension * Anemia. 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
--- NOTE | 2016-11-03 14:05 | XRay Report ---
History: Congestive heart failure Date: 11/03/2016 Study: Chest x-ray PA and lateral Comparison exam: 11/02/2016 The cardiomediastinal silhouette is unchanged in this patient status post prior median sternotomy. There is groundglass and reticulonodular parenchymal disease scattered in both lungs. There is no obvious new or worsening infiltrate. There is no layering pleural effusion. Osseous structures are unchanged. Impression: No gross overall change from the previous study PROCEDURE INTERPRETED AT [facility] DEPARTMENT OF RADIOLOGY Final Report Signed by: Dr. Aspen Champion
--- NOTE | 2016-11-03 15:15 | Hospitalist Progress Note ---
Hospitalist: Subjective Interval history: Patient complained of nausea today. He denies having a bowel movement though the nursing staff reports he had a response after enema given yesterday. He reports decreased oral intake today. Low-grade temp. Exam - Constitutional Vitals: Period Temp Pulse Resp BP Sys/Maloney Pulse Ox Last 24 Hr 97.5 F-99.8 F 71-111 16-22 128-164/60-93 85-99 Exam: A and O x 3, ill-appearing RRR no M Increased wheezes bilaterally with nonlabored breathing. soft, NT, ND, +BS Warm no c/c/e Results - Labs CBC & BMP: 11/03/16 04:00 11/03/16 08:54 - Impressions (1) Chest pain (atypical) Status: Acute Assessment and plan: - Cont heparin SQ - VQ scan normal. Venous Doppler studies were negative for DVT. - off IV nitroglycerin. Serial - cardiac isoenzymes have not been significantly elevated. - Cardiology following. - Continued diuresis noted. Current Visit: Yes (2) Acute on chronic Diastolic CHF (grade 2 diastolic) exacerbation- improved Status: Acute Assessment and plan: - Cont Lasix orally, metoprolol and BP control. Cardiology is following. Current Visit: Yes Qualifiers: Congestive heart failure chronicity: acute on chronic Qualified Code(s): I50.33 - Acute on chronic diastolic (congestive) heart failure (3) Diabetes mellitus type 2 with recent hypoglycemia- improved Status: Chronic Current Visit: Yes Qualifiers: Diabetes mellitus type: type 2 Diabetes mellitus complication status: with kidney complications Diabetes mellitus complication detail: with chronic kidney disease Diabetes mellitus alf insulin use: with exterminator use Chronic kidney disease stage: stage 4 (severe) Qualified Code(s): E11.22 - Type 2 diabetes mellitus with diabetic chronic kidney disease; N18.4 - Chronic kidney disease, stage 4 (severe); Z79.4 - shelter (current) use of insulin - Cont I.S.S and accuchecks (4) Hypertension essential- controlled Status: Chronic Assessment and plan: Cont current medical regimen. Off IV nitroglycerin. Cards following. Current Visit: Yes (5) Acute renal failure on CKD (chronic kidney disease) stage 4 with hyperkalemia Status: Chronic Assessment and plan: Nephrology following. s/p kayexalate enema with good results. Serial labs. Creatinine slightly improved and K is normal today. Current Visit: No Qualifiers: Chronic kidney disease stage: stage 4 (severe) Qualified Code(s): N18.4 - Chronic kidney disease, stage 4 (severe) (6) Paroxysmal atrial fibrillation Status: Chronic Assessment and plan: Currently remains in sinus rhythm on amiodarone therapy. Cont metoprolol. on Heparin. Defer chronic anticoagulation to cardiology as the [id number] score is elevated. Current Visit: Yes (7) Chronic obstructive pulmonary disease with chronic respiratory failure on 2L oxygen at home with Pulmonary hypertension and suspected NOBLE Status: Chronic Assessment and plan: Continue current regimen. Current Visit: Yes - Bronchodilators, oxygen. Pulm following (8) Dyslipidemia Status: Chronic Current Visit: No (9) Status post aortic valve replacement with bioprosthetic valve Status: Chronic Current Visit: Yes - chronic anticoagulation per cardiology (10) Symptomatic Anemia- progressive. Multifactorial due to folate, vitamin b12 and likely due to CKD - transfusing 1 U PRBCs 11/01-11/02. Serial H and H. Awaiting FOBT. Cont supplementation D/W pt and nurse all questions answered. was asleep on the couch.
[2016-11-04] MEDS: CLORAZEPATE 7.5 MG TABLET PO PRN ×2 (01:25→23:33)
[2016-11-04] MEDS: ALBUTEROL/IPRATROPIUM 3 ML NEB RESP TX SCH ×3 (01:36→07:35)
[2016-11-04] MEDS: MORPHINE 2 MG/1 ML SYRINGE IV PRN (04:48)
[2016-11-04 05:22] LABS: Basophils % 0.5 % (0.0-0.8); Eosinophils # 0.4 10*3/uL (0.0-0.87); Eosinophils % 5.9 % (0.00-10.9); Hematocrit 31.2 VOL% (42.0-52.0); Hemoglobin 9.9 GM/DL (14.0-18.0); Immature Granulocytes % 0.5 %; Immature Granulocytes Absolute 0.03 #; Lymphocytes # 0.4 10*3/uL (1.4-4.0); Lymphocytes % 6.1 % (21.2-54.2); Mean Corpuscular HGB Conc 31.7 GM/DL (32-36); Mean Corpuscular Hemoglobin 26 PG (27-34); Mean Corpuscular Volume 82.8 FL (87-102); Mean Platelet Volume 10.3 FL (9.6-12.0); Monocytes # 0.5 10*3/uL (0.11-0.8); Neutrophils # 4.9 10*3/uL (1.4-7.4); Platelet Count 182 T/CUMM (130-400); Red Blood Count 3.77 MC/CUMM (3.8-5.5); White Blood Count 6.2 T/CUMM (4-12)
[2016-11-04 05:43] LABS: Calcium 8.4 MG/DL (8.5-10.1); Magnesium 2.3 MG/DL (1.8-2.4); Osmolality,Calculated 288.8 MOS/KG (273-304); Potassium 4.7 MMOL/L (3.5-5.1)
[2016-11-04] MEDS: ACETAMINOPHEN 325 MG TABLET PO PRN (06:18)
--- NOTE | 2016-11-04 09:59 | Pulmonology Progress Note ---
Pulmonary - PN: Subj Interval history: This is a 71-year-old white male. I saw him in pulmonary consultation 2016. My impressions were. 1. Acute congestive heart failure. 2. Aortic valve replacement 2012 3. COPD. Past history tobacco abuse 3.1 Anemia. Folic acid level is low and vitamin B12 level is normal. #4 chronic renal failure 5. Low calcium and low albumin. 6. Insulin-dependent diabetes mellitus with a history of diabetic ketoacidosis 7. Hyperlipidemia 8. History of atrial fib 9. Symptoms suggestive of obstructive sleep apnea 10. Mild pulmonary hypertension. Etiology undetermined. Note elevated left ventricular filling blood pressures on echocardiogram. Previous echocardiogram was obtained when the patient was in congestive heart failure. Obstructive sleep apnea could be a contributory factor. 11. Past history of deep venous thrombophlebitis and pulmonary emboli. No evidence of either found during initial workup this admission 12. See past history 11/01/2016. Chest x-rays are pending. I have ordered the EPA and lateral for today and tomorrow. Patient still has shortness of breath and he complains of chest pain with exertion. To me this chest pain is worrisome for cardiac angina. Pulmonary hypertension can sometimes cause similar pain. Last admission the patient's pulmonary artery pressures were 65-70 mmHg. This echocardiogram was obtained while the patient was in congestive heart failure. I am going to order a repeat echocardiogram for comparison pulmonary artery pressures. Patient's on Procardia XL 60 which is a good medicine for pulmonary hypertension. We could go higher. We could add Revatio if it appears safe from a cardiology standpoint. Occasionally Apresoline works for pulmonary hypertension. Apresoline could be added if needed to help with cardiac output. Patient's H&H is 7.6/23.9. He is low folic acid. His B12 is normal. He also is low on iron. I have started replacement with iron and also folic acid. His vitamin D level is low and vitamin D replacement has been started. I am going to transfuse the patient with a unit of blood today and if he tolerates this well will probably should transfuse another unit tomorrow. This will certainly improve his oxygen carrying capacity. BNP is pending. Note sedimentation rate is 96. Doppler venograms were negative for deep venous thrombophlebitis. Ventilation perfusion lung scan showed no perfusion defects. 11/02/2016. Today's x-ray shows mild residual congestive heart failure. BNP remains elevated at 556. Noted creatinine is 4.60 with a BUN of 52 and this may falsely elevate his BNP. Patient's vitamin D is low and will order replacement. Folic acid is also low. B12 is in the normal range of 438. Posttransfusion H&H is 8.4/26.9. Iron saturation is also low. Iron has not been started. Patient has some persistent nausea. Nares are positive for MRSA. Repeat echocardiogram done 10/29/2016 shows ejection fraction 65% with grade 3 diastolic dysfunction and moderate biatrial enlargement. There is mild atrial regurgitation. Trace of aortic insufficiency. Pulmonary artery pressures are estimated to be 79 mmHg. Patient's on Procardia XL 60 and I will increase this to 120 mg daily. We did consider Revatio if cardiology feels this is safe. Would start with 20 mg every 8 hours. Alternatively we could try Apresoline 25 3 times daily which occasionally helps and may help with the patient's cardiac output. Will ask for Dr. Bueno's comment. 11/03/2016. Today's chest x-ray continues to show mild pulmonary edema. 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 CBC is stable. The rest of today's lab is pending. Dr. Lydia Ca sleep medicine note has been reviewed and I agree with his plans. Patient's was apparently asleep on the bed. She moves her foot but she never turned over or participate in our conversation today. Santosh Courtney nurse practitioner was present. Patient's had some slight fever related to blood transfusions. I do not see anything so far that looks like amiodarone along. Amiodarone was only recently added. Procardia XL was increased to 60 mg twice a day on 11/02/2016 an attempt to treat the patient's pulmonary hypertension 11/04/2016. This patient had altered mental status and had a normal CT of the head yesterday. I reviewed his medicines from last night. He received Orion 10. 4 mg of morphine and transfers seen. He is a little slow on the mental uptake this morning and I suspect the answer lies in his medicines. This patient has had heart failure that has not quite resolved. His chest x-ray has not been done today. See my note from 11/03/2016. I reviewed the number of old x-rays at his baseline x-ray should looked like x-rays that were done on 2014, 01/05/2016 and on 09/26/2016. The changes he has now are secondary to none resolved pulmonary edema. These are exactly the same changes that he has had before when he has pulmonary edema. The only outlier would be a reaction to amiodarone but he is only been on this for short period of time BNP is elevated at 307. Patient creatinine remains elevated 490 with a BUN of 52 and normal electrolytes. H&H a little bit better at 9.9/31.2. White count 6200 and platelets are 182,000. Will continue to follow his chest x-ray and lab. Physical exam. Vital signs. See below. Face is symmetrical. Lips and tongue are normal Neck. Symmetrical no meningismus. Lymphatics. No submandibular cervical supraclavicular or epitrochlear adenopathy. Chest is fairly clear Heart lateral PMI Abdomen. Nontender. Positive bowel sounds Lower extremities. Skin no evidence of chronic venous stasis. No edema. Neurologic. Cranial nerves are intact. Long track motor functions intact. Gait was not tested. Psychiatric. Oriented 3. The remainder the physical exam is noncontributory. Plan. 11/01/2016. See my note above. See numbers 1 through 9 below 1. Diuresis. Watch BMP. 2. Replace folic acid 3. Replace iron 4. Blood transfusion 5. Deep venous thrombophlebitis prevention protocol 6. Replace vitamin D 7. Follow-up chest x-ray #8. Repeat echocardiogram. Consider increase of Procardia. Consider Revatio say from a cardiology standpoint. An outlier for pulmonary hypertension would be Apresoline. 9. 11/02/2016. See today's note above. Increase Procardia XL 60 to twice daily . Last Dr. Moseley his opinion concerning Revatio and/or Apresoline 10. 11/03/2016. See today's note above. 11. 11/04/2016. See today's note above. Considering cutting back significantly on this patient pain medicines. I suspect these are the cause of his altered mental status. We will follow-up his chest x-ray and lab. Dr. Radha mcadams will see the patient this week Exam (Progress Note) - Constitutional Vitals: Period Temp Pulse Resp BP Sys/Maloney Pulse Ox Last 24 Hr 97.7 F-101.2 F 80-96 18-20 116-152/57-69 90-99 Results - Labs CBC & BMP: 11/04/16 04:36 11/04/16 04:36
--- NOTE | 2016-11-04 10:26 | Hospitalist Progress Note ---
Hospitalist: Subjective Interval history: Pt is delayed with responses this am. He has had poor oral intake over the past couple of days. No fever. Denies cp or SOB. Palpitations and anxiety with breathing treatments per pt. Exam - Constitutional Vitals: Period Temp Pulse Resp BP Sys/Maloney Pulse Ox Last 24 Hr 97.7 F-101.2 F 80-96 18-20 116-152/57-69 90-99 Exam: Awake and alert, confused, sitting in a chair in NAD, chronically ill-appearing RRR no M Slight bilateral wheezes with nonlabored breathing. soft, NT, ND, +BS Warm no c/c/e Nonfocal neuro exam Results - Labs CBC & BMP: 11/04/16 04:36 11/04/16 04:36 - Impressions (1) Acute encephalopathy likely toxic/metabolic - agree this is possibly related to medication side effect. Will dc morphine and space out norco. decrease dose of tranxene for anxiety. Monitor clinically (2) Debility - will hold plaquenil and several of his current symptoms could be related to this including, nausea, weakness and emotional lability. Follow clinically - PT/OT (3) Acute on chronic Diastolic CHF (grade 2 diastolic) exacerbation- improved. Pt seems better compensated. Status: Acute Assessment and plan: - Cont Lasix orally, metoprolol and BP control. Cardiology is following. Current Visit: Yes Qualifiers: Congestive heart failure chronicity: acute on chronic Qualified Code(s): I50.33 - Acute on chronic diastolic (congestive) heart failure (4) Chronic obstructive pulmonary disease with chronic respiratory failure on 2L oxygen at home with Pulmonary hypertension and suspected NOBLE Status: Chronic Assessment and plan: Continue current regimen. Current Visit: Yes - Change DuoNeb to Xopenex, Cont oxygen. Pulm following (5) Acute renal failure on CKD (chronic kidney disease) stage 4- worsening Status: Chronic Assessment and plan: Nephrology following. s/p kayexalate enema with good results. Serial labs. Creatinine worsening. K is normal today. If worsens over the weekend, will likely need to hold Lasix Current Visit: No Qualifiers: Chronic kidney disease stage: stage 4 (severe) Qualified Code(s): N18.4 - Chronic kidney disease, stage 4 (severe) (6) Chest pain (atypical) Status: Acute Assessment and plan: - Cont heparin SQ - VQ scan normal. Venous Doppler studies were negative for DVT. - off IV nitroglycerin. Serial - cardiac isoenzymes have not been significantly elevated. - Cardiology following. - Continued diuresis noted. 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 Off IV nitroglycerin. Cards following. Current Visit: Yes (9) Paroxysmal atrial fibrillation Status: Chronic Assessment and plan: Currently remains in sinus rhythm on amiodarone therapy. Cont metoprolol. on Heparin. Defer chronic anticoagulation to cardiology as the [id number] score is elevated. Current Visit: Yes (10) Dyslipidemia Status: Chronic Current Visit: No (11) Status post aortic valve replacement with bioprosthetic valve Status: Chronic Current Visit: Yes - chronic anticoagulation per cardiology (12) Symptomatic Anemia- progressive. Multifactorial due to folate, vitamin b12 and likely due to CKD - transfused 1 U PRBCs 11/01-11/02. Serial H and H. Awaiting FOBT. Cont supplementation D/W pt, renal and nurse all questions answered.
[2016-11-04] MEDS: COLCHICINE 0.6 MG TABLET PO SCH (10:35)
[2016-11-04] MEDS: CHOLECALCIFEROL 1,000 UNIT TABLET PO SCH (10:35)
[2016-11-04] MEDS: HEPARIN 5,000 UNIT/1 ML VIAL SUBCUT SCH ×3 (10:35→22:51)
[2016-11-04] MEDS: FOLIC ACID 0.4 MG TABLET PO SCH (10:35)
[2016-11-04] MEDS ORDERED: ALBUTEROL 2.5 MG/3 ML NEB RESP TX PRN (10:35)
[2016-11-04] MEDS: HYDROXYCHLOROQUINE 200 MG TABLET PO SCH (10:36)
[2016-11-04] MEDS: AMIODARONE 200 MG TABLET PO SCH (10:36)
[2016-11-04] MEDS: FUROSEMIDE 40 MG TABLET PO SCH ×2 (10:36→15:09)
[2016-11-04] MEDS: ATORVASTATIN 40 MG TABLET PO SCH (10:36)
[2016-11-04] MEDS: PANTOPRAZOLE 40 MG TABLET PO SCH ×2 (10:36→18:03)
[2016-11-04] MEDS: DOCUSATE SODIUM 100 MG CAPSULE PO SCH ×2 (10:36→20:47)
[2016-11-04] MEDS: ALLOPURINOL 300 MG TABLET PO SCH (10:36)
[2016-11-04] MEDS: ASPIRIN EC 81 MG TABLET PO SCH (10:37)
[2016-11-04] MEDS: METOPROLOL TARTRATE 25 MG TABLET PO SCH ×2 (10:37→20:47)
[2016-11-04] MEDS: MAGNESIUM OXIDE 400 MG TABLET PO SCH (10:37)
[2016-11-04] MEDS: MUPIROCIN 2% OINT 22 GM TUBE TOP SCH ×2 (10:49→20:48)
[2016-11-04] MEDS: INSULIN LISPRO 100 UNIT/ML SUBCUT SCH ×4 (10:50→20:47)
[2016-11-04] MEDS ORDERED: MAGNESIUM HYDROXIDE SUSP 30 ML UDCUP PO ONE (10:51)
[2016-11-04] MEDS: ALBUTEROL 2.5 MG/3 ML NEB RESP TX SCH ×2 (12:37→19:39)
--- NOTE | 2016-11-04 14:23 | XRay Report ---
XR chest 2V Date: 11/04/2016 4:00 AM History: CHF Comparison: 11/03/2016 Technique: PA and lateral chest Findings: The heart is borderline in size with prior median sternotomy. Reduced diffuse parenchymal findings with underlying chronic scarring. Stable mediastinum and osseous structures. Impression: Improved CHF with underlying chronic scarring in patient with prior median sternotomy. Ill-defined densities persist and follow-up x-ray is recommended. PROCEDURE INTERPRETED AT [facility] DEPARTMENT OF RADIOLOGY Final Report Signed by: Dr. Brittany Vincent
[2016-11-04] MEDS: ONDANSETRON 4 MG/2 ML VIAL IV PRN (15:39)
--- NOTE | 2016-11-04 16:09 | Nephrology Progress Note ---
Nephrology - PN: Subj Interval history: He was sleepy this morning after receiving pain medication and Tranxene last night. Shortness of breath with mild exertion. Exam (PN)-Nephrology - Vital Signs Vital signs: Period Temp Pulse Resp BP Sys/Maloney Pulse Ox Last 24 Hr 98.5 F-101.2 F 80-96 18-20 131-152/61-81 88-99 Exam: ENT: Normal Cardiovascular: Regular rate and rhythm. No murmur rub or gallop Lungs: Mild expiratory wheezes Extremities: No edema - Lab 11/04/16 04:36 11/04/16 04:36 Most recent lab results Calcium 8.4 MG/DL (8.5-10.1) L 11/04/16 04:36 Magnesium 2.3 MG/DL (1.8-2.4) 11/04/16 04:36 Assessment and Plan (1) Chronic kidney disease, stage IV (severe) Status: Chronic Assessment and plan: 71-year-old man admitted with: * CRF stage IV. Creatinine has risen to 4.9. Diuretic will be decreased to once daily * Diastolic CHF. His weight is variable but has decreased with diuresis * COPD. Mild expiratory wheezes present * Pulmonary hypertension * Prosthetic aortic valve * Diabetes mellitus * Hypertension * Anemia. Posttransfusion Current Visit: Yes (2) Diastolic CHF Status: Acute Current Visit: Yes Qualifiers: Congestive heart failure chronicity: acute on chronic Qualified Code(s): I50.33 - Acute on chronic diastolic (congestive) heart failure (3) Pulmonary edema Status: Acute Current Visit: Yes (4) Chronic obstructive pulmonary disease Status: Acute Current Visit: Yes (5) Diabetes mellitus Status: Chronic Current Visit: Yes Qualifiers: Diabetes mellitus type: type 2 Diabetes mellitus complication status: with kidney complications Diabetes mellitus complication detail: with chronic kidney disease Diabetes mellitus senior care insulin use: with senior care use Chronic kidney disease stage: stage 4 (severe) Qualified Code(s): E11.22 - Type 2 diabetes mellitus with diabetic chronic kidney disease; N18.4 - Chronic kidney disease, stage 4 (severe); Z79.4 - care home (current) use of insulin (6) Hypertension Status: Chronic Current Visit: Yes
--- NOTE | 2016-11-04 16:55 | Cardiology Progress Note ---
Assessment and Plan (1) Chronic obstructive pulmonary disease Status: Acute Assessment and plan: 71-year-old male, history of paroxysmal A. fib, bioprosthetic aortic valve, diastolic heart failure, suspected severe NOBLE, diabetes mellitus, hypertension, hyperlipidemia. -Paroxysmal A. fib. Continue amiodarone, low-dose beta-jim. Currently, in sinus rhythm. His anticoagulation was stopped in the past due to unstable INRs. Severe CKD limits options with new agents. He is also quite anemic. Continue aspirin. Had occasional Mobitz 1 second-degree AV block, not symptomatic. -Blood pressure is also trending higher. Increase hydralazine to 50 mg 3 times daily. If there is a reversible component in the pulmonary hypertension, this may also help with this. As per pulmonary recommendations, he could also be a candidate for Revatio. We can max out hydralazine first, up to 100 mg 3 times daily, if the blood pressure allows. -Abd discomfort, constipation. Check KUB. He has lactulose prn ordered but was not getting it. 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 Occasional shakiness. Blood pressure well controlled, shortness of breath is to persist. No significant lower extremity Exam (Progress Note) - Constitutional Vitals: Period Temp Pulse Resp BP Sys/Maloney Pulse Ox Last 24 Hr 98.5 F-101.2 F 80-96 18-20 112-152/56-81 88-99 General appearance: normal weight, morbidly obese - Head Head exam: Present: normal inspection, normocephalic - Eye Eye exam: Absent: conjunctival injection Pupils: Absent: dilated - ENT ENT exam: Present: normal external ear exam - Neck Neck exam: Present: normal inspection - Respiratory Respiratory exam: Present: decreased breath sounds, prolonged expiratory phase - Cardiovascular Cardiovascular exam: Present: regular rate and rhythm - GI/Abdominal GI/Abdominal exam: Present: distended, hypoactive bowel sounds - Extremities Exam Extremities exam: Present: normal inspection, normal capillary refill. Absent: edema - Back Exam Back exam: Present: normal inspection - Neurological Exam Neurological exam: Present: alert, oriented X3 - Psychiatric Psychiatric exam: Present: normal affect, normal mood - Skin Skin exam: Present: normal color, warm. Absent: cyanosis Result/EKG - Labs CBC & BMP: 11/04/16 04:36 11/04/16 04:36 Lab Results: I have reviewed the past 24 hour labs Labs: Laboratory Results - last 24 hr 11/03/16 11/04/16 11/04/16 20:46 04:36 04:36 WBC 6.2 RBC 3.77 L Hgb 9.9 L Hct 31.2 L MCV 82.8 L MCH 26 L MCHC 31.7 L RDW 17.0 Plt Count 182 MPV 10.3 Neut % (Auto) 79.0 H Lymph % (Auto) 6.1 L [place] % (Auto) 8.0 Eos % (Auto) 5.9 Baso % (Auto) 0.5 Neut # (Auto) 4.9 Lymph # (Auto) 0.4 L [place] # (Auto) 0.5 Eos # (Auto) 0.4 Baso # (Auto) 0.0 Immature Gran % 0.5 Nucleated RBC % 0.0 Immature Gran # 0.03 Nucleated RBCs # 0.00 Sodium 137 Potassium 4.7 Chloride 98 Carbon Dioxide 26 Anion Gap 17.7 H BUN 52 H Creatinine 4.90 H GFR Calculation 16 BUN/Creatinine Ratio 10.00 Glucose 133 H POC Glucose 146 H Calculated Osmolality 288.8 Calcium 8.4 L Magnesium 2.3 B-Natriuretic Peptide 11/04/16 11/04/16 11/04/16 04:36 07:03 11:12 WBC RBC Hgb Hct MCV MCH MCHC RDW Plt Count MPV Neut % (Auto) Lymph % (Auto) [place] % (Auto) Eos % (Auto) Baso % (Auto) Neut # (Auto) Lymph # (Auto) [place] # (Auto) Eos # (Auto) Baso # (Auto) Immature Gran % Nucleated RBC % Immature Gran # Nucleated RBCs # Sodium Potassium Chloride Carbon Dioxide Anion Gap BUN Creatinine GFR Calculation BUN/Creatinine Ratio Glucose POC Glucose 176 H 150 H Calculated Osmolality Calcium Magnesium B-Natriuretic Peptide 307 H - EKG EKG results: interpreted by me
[2016-11-04] MEDS: CLORAZEPATE 3.75 MG TABLET PO PRN (18:03)
--- NOTE | 2016-11-04 18:18 | XRay Report ---
History: Abdominal pain. Rule out ileus Date: 11/04/2016 Study: KUB Comparison exam: No previous similar The bowel gas pattern is nonobstructive without gross mass lesion. Some scattered stool and air are noted in the normal caliber colon. No definite radiopaque calculi are seen. A phlebolith overlies the right hemipelvis. There is mild lumbar spondylosis. Impression: No acute abdominal process PROCEDURE INTERPRETED AT [facility] DEPARTMENT OF RADIOLOGY Final Report Signed by: Dr. Aspen Champion
[2016-11-05] MEDS: ALBUTEROL 2.5 MG/3 ML NEB RESP TX SCH ×5 (01:29→19:25)
[2016-11-05 04:25] LABS: Basophils % 0.4 % (0.0-0.8); Eosinophils # 0.2 10*3/uL (0.0-0.87); Eosinophils % 4.1 % (0.00-10.9); Hematocrit 28.3 VOL% (42.0-52.0); Hemoglobin 9.1 GM/DL (14.0-18.0); Immature Granulocytes % 0.4 %; Immature Granulocytes Absolute 0.02 #; Lymphocytes # 0.6 10*3/uL (1.4-4.0); Lymphocytes % 10.3 % (21.2-54.2); Mean Corpuscular HGB Conc 32.2 GM/DL (32-36); Mean Corpuscular Hemoglobin 26 PG (27-34); Mean Corpuscular Volume 81.1 FL (87-102); Mean Platelet Volume 10.2 FL (9.6-12.0); Monocytes # 0.6 10*3/uL (0.11-0.8); Monocytes % 11.6 % (1.7-12.7); Neutrophils # 3.9 10*3/uL (1.4-7.4); Neutrophils % 73.2 % (38.7-73.9); Platelet Count 171 T/CUMM (130-400); Red Blood Count 3.49 MC/CUMM (3.8-5.5); Red Cell Distribution Width 16.8 % (9.3-17.3); White Blood Count 5.4 T/CUMM (4-12)
[2016-11-05 04:55] LABS: Calcium 8.2 MG/DL (8.5-10.1); Magnesium 2.5 MG/DL (1.8-2.4); Osmolality,Calculated 283.2 MOS/KG (273-304); Potassium 4.8 MMOL/L (3.5-5.1)
[2016-11-05] MEDS: INSULIN LISPRO 100 UNIT/ML SUBCUT SCH ×4 (07:57→20:37)
[2016-11-05] MEDS: MAGNESIUM OXIDE 400 MG TABLET PO SCH (08:01)
[2016-11-05] MEDS ORDERED: FUROSEMIDE 40 MG TABLET PO SCH (09:00)
[2016-11-05] MEDS: ASPIRIN EC 81 MG TABLET PO SCH (09:23)
[2016-11-05] MEDS: PANTOPRAZOLE 40 MG TABLET PO SCH ×2 (09:23→17:17)
[2016-11-05] MEDS: CLORAZEPATE 7.5 MG TABLET PO PRN (09:23)
[2016-11-05] MEDS: AMIODARONE 200 MG TABLET PO SCH (09:23)
[2016-11-05] MEDS: CHOLECALCIFEROL 1,000 UNIT TABLET PO SCH (09:23)
[2016-11-05] MEDS: DOCUSATE SODIUM 100 MG CAPSULE PO SCH ×2 (09:23→20:36)
[2016-11-05] MEDS: FOLIC ACID 0.4 MG TABLET PO SCH (09:23)
[2016-11-05] MEDS: ATORVASTATIN 40 MG TABLET PO SCH (09:23)
[2016-11-05] MEDS: METOPROLOL TARTRATE 25 MG TABLET PO SCH ×2 (09:23→20:36)
[2016-11-05] MEDS: HEPARIN 5,000 UNIT/1 ML VIAL SUBCUT SCH ×2 (09:24→22:35)
[2016-11-05] MEDS: ALLOPURINOL 300 MG TABLET PO SCH (09:24)
[2016-11-05] MEDS: MUPIROCIN 2% OINT 22 GM TUBE TOP SCH ×2 (09:28→20:36)
--- NOTE | 2016-11-05 11:15 | Hospitalist Progress Note ---
Hospitalist: Subjective Interval history: Patient states he feels "bad" today. He continues to report nausea and refuses anything oral except for anxiety/ pain medicines. He states that his shortness of breath persists. No chest pain. He reports feeling very dizzy and weak when sitting up. Exam - Constitutional Vitals: Period Temp Pulse Resp BP Sys/Maloney Pulse Ox Last 24 Hr 98.5 F-99.5 F 51-96 20-22 112-147/56-81 88-97 Exam: Awake and alert, sitting on side of the bed ill-appearing RRR no M Decreased bilateral wheezes with better aeration with nonlabored breathing. soft, NT, ND, hypoactive BS Warm no c/c/e Nonfocal neuro exam Results - Labs CBC & BMP: 11/05/16 03:06 11/05/16 03:06 - Impressions (1) Acute encephalopathy likely toxic/metabolic -Improved with adjustments of his pain medication and anxiety medication. Continue to monitor clinically. (2) Debility - continue to hold plaquenil and several of his current symptoms could be related to this including, nausea, weakness and emotional lability. Follow clinically - PT/OT -Check orthostatics (3) Acute on chronic Diastolic CHF (grade 2 diastolic) exacerbation- improved. Pt seems better compensated. Status: Acute Assessment and plan: - off Lasix orally. Cont metoprolol and BP control. Cardiology is following. His BNP is the least it has been during this hospital stay. Current Visit: Yes Qualifiers: Congestive heart failure chronicity: acute on chronic Qualified Code(s): I50.33 - Acute on chronic diastolic (congestive) heart failure (4) Chronic obstructive pulmonary disease with chronic respiratory failure on 2L oxygen at home with Pulmonary hypertension and suspected NOBLE Status: Chronic Assessment and plan: Continue current regimen. Current Visit: Yes - Cont Xopenex, Cont oxygen. Pulm/sleep medicine following (5) Acute renal failure on CKD (chronic kidney disease) stage 4- worsening Status: Chronic Assessment and plan: Nephrology following. Serial labs. Creatinine worsening. K is normal today. Holding Lasix. Current Visit: No Qualifiers: Chronic kidney disease stage: stage 4 (severe) Qualified Code(s): N18.4 - Chronic kidney disease, stage 4 (severe) (6) Chest pain (atypical) Status: Acute Assessment and plan: - Cont heparin SQ - VQ scan normal. Venous Doppler studies were negative for DVT. - off IV nitroglycerin. Serial - cardiac isoenzymes have not been significantly elevated. - Cardiology following. Current Visit: Yes (7) Diabetes mellitus type 2 with recent hypoglycemia- improved Status: Chronic Current Visit: Yes Qualifiers: Diabetes mellitus type: type 2 Diabetes mellitus complication status: with kidney complications Diabetes mellitus complication detail: with chronic kidney disease Diabetes mellitus terminal operations supervisor insulin use: with terminal operations supervisor use Chronic kidney disease stage: stage 4 (severe) Qualified Code(s): E11.22 - Type 2 diabetes mellitus with diabetic chronic kidney disease; N18.4 - Chronic kidney disease, stage 4 (severe); Z79.4 - residential (current) use of insulin - Cont I.S.S and accuchecks (8) Hypertension essential- controlled Status: Chronic Assessment and plan: Cont current medical regimen. Off IV nitroglycerin. Cards following. Current Visit: Yes (9) Paroxysmal atrial fibrillation Status: Chronic Assessment and plan: Currently remains in sinus rhythm on amiodarone therapy. Cont metoprolol. on Heparin. Defer chronic anticoagulation to cardiology as the [id number] score is elevated. Current Visit: Yes (10) Dyslipidemia Status: Chronic Current Visit: No (11) Status post aortic valve replacement with bioprosthetic valve Status: Chronic Current Visit: Yes - chronic anticoagulation per cardiology (12) Symptomatic Anemia- progressive. Multifactorial due to folate, vitamin b12 and likely due to CKD - transfused 1 U PRBCs 11/01-11/02. Serial H and H. Awaiting FOBT. Cont supplementation (13) Nausea, anorexia, and constipation- -Last bowel movement was when he had a Kayexalate enema 3 days ago. He has been on Colace schedule with no results. Milk of magnesia was given today -Will start soapsuds enema and magnesium citrate D/W pt, and nurse. All questions answered. I will be away several days. 1 of my associates will follow in my absence.
--- NOTE | 2016-11-05 11:36 | Nephrology Progress Note ---
Nephrology - PN: Subj Interval history: Mr. Aocsta is seen in follow-up of his acute superimposed on chronic renal impairment. He remains short of breath with his fluid overload and COPD. Chest x-ray demonstrates changes of scarring with probable fluid excess as well. He does have some peripheral edema and continues to wheeze. He is receiving ventilation. I can and I think needs a bit more diuresis. His weight has been difficult to interpret. It has been quite variable. We are going to increase Lasix from 40 mg to 80 mg daily. Exam (PN)-Nephrology - Vital Signs Vital signs: Period Temp Pulse Resp BP Sys/Maloney Pulse Ox Last 24 Hr 98.5 F-99.5 F 51-96 20-22 112-147/56-81 88-97 - Lab 11/05/16 03:06 11/05/16 03:06 Most recent lab results Calcium 8.2 MG/DL (8.5-10.1) L 11/05/16 03:06 Magnesium 2.5 MG/DL (1.8-2.4) H 11/05/16 03:06
--- NOTE | 2016-11-05 12:28 | Cardiology Progress Note ---
Assessment and Plan (1) Chronic obstructive pulmonary disease Status: Acute Assessment and plan: 71-year-old male, history of paroxysmal A. fib, bioprosthetic aortic valve, diastolic heart failure, suspected severe NOBLE, diabetes mellitus, hypertension, hyperlipidemia. -Paroxysmal A. fib. Continue amiodarone, low-dose beta-jim. Currently, in sinus rhythm. His anticoagulation was stopped in the past due to unstable INRs. Severe CKD limits options with new agents. He is also quite anemic. Continue aspirin. Had occasional Mobitz 1 second-degree AV block, not symptomatic. -Hypertension. The blood pressure is now better controlled. Continue hydralazine 50 mg 3 times daily. If blood pressure allows after diuresis, we can increase dose, to help with pulmonary hypertension. -Abd discomfort, constipation. There was no obstruction on KUB. Continue laxatives as needed. Current Visit: Yes (2) Diabetes mellitus Status: Chronic Current Visit: Yes Qualifiers: Diabetes mellitus type: type 2 Diabetes mellitus complication status: with kidney complications Diabetes mellitus complication detail: with chronic kidney disease Diabetes mellitus joint terminal attack controller insulin use: with jail use Chronic kidney disease stage: stage 4 (severe) Qualified Code(s): E11.22 - Type 2 diabetes mellitus with diabetic chronic kidney disease; N18.4 - Chronic kidney disease, stage 4 (severe); Z79.4 - terminologist (current) use of insulin (3) Acute CVA (cerebrovascular accident) Status: Acute Current Visit: No (4) Hypertension Status: Chronic Current Visit: Yes (5) Anemia Status: Chronic Current Visit: No Cardiology - PN: Subj Interval history: He is still feeling short of breath. The edema improved slightly. KUB did not show obstruction. Exam (Progress Note) - Constitutional Vitals: Period Temp Pulse Resp BP Sys/Maloney Pulse Ox Last 24 Hr 98.5 F-99.5 F 51-96 20-22 112-147/56-63 90-97 General appearance: normal weight, morbidly obese - Head Head exam: Present: normal inspection, normocephalic - Eye Eye exam: Absent: conjunctival injection Pupils: Absent: dilated - ENT ENT exam: Present: normal external ear exam - Neck Neck exam: Present: normal inspection - Respiratory Respiratory exam: Present: decreased breath sounds, prolonged expiratory phase - Cardiovascular Cardiovascular exam: Present: regular rate and rhythm, systolic murmur - GI/Abdominal GI/Abdominal exam: Present: distended, hypoactive bowel sounds, rebound. Absent : tenderness - Extremities Exam Extremities exam: Present: normal inspection, normal capillary refill, edema (1+ ) - Neurological Exam Neurological exam: Present: alert, oriented X3 - Psychiatric Psychiatric exam: Present: normal affect, normal mood - Skin Skin exam: Present: normal color, warm. Absent: cyanosis Result/EKG - Labs CBC & BMP: 11/05/16 03:06 11/05/16 03:06 Lab Results: I have reviewed the past 24 hour labs Labs: Laboratory Results - last 24 hr 11/04/16 11/04/16 11/05/16 17:10 20:12 03:06 WBC RBC Hgb Hct MCV MCH MCHC RDW Plt Count MPV Neut % (Auto) Lymph % (Auto) [place] % (Auto) Eos % (Auto) Baso % (Auto) Neut # (Auto) Lymph # (Auto) [place] # (Auto) Eos # (Auto) Baso # (Auto) Immature Gran % Nucleated RBC % Immature Gran # Nucleated RBCs # Sodium 134 L Potassium 4.8 Chloride 98 Carbon Dioxide 23 Anion Gap 17.8 H BUN 53 H Creatinine 5.10 H GFR Calculation 15 BUN/Creatinine Ratio 10.00 Glucose 129 H POC Glucose 157 H 179 H Calculated Osmolality 283.2 Calcium 8.2 L Magnesium 2.5 H B-Natriuretic Peptide 11/05/16 11/05/16 11/05/16 03:06 03:06 07:40 WBC 5.4 RBC 3.49 L Hgb 9.1 L Hct 28.3 L MCV 81.1 L MCH 26 L MCHC 32.2 RDW 16.8 Plt Count 171 MPV 10.2 Neut % (Auto) 73.2 Lymph % (Auto) 10.3 L [place] % (Auto) 11.6 Eos % (Auto) 4.1 Baso % (Auto) 0.4 Neut # (Auto) 3.9 Lymph # (Auto) 0.6 L [place] # (Auto) 0.6 Eos # (Auto) 0.2 Baso # (Auto) 0.0 Immature Gran % 0.4 Nucleated RBC % 0.0 Immature Gran # 0.02 Nucleated RBCs # 0.00 Sodium Potassium Chloride Carbon Dioxide Anion Gap BUN Creatinine GFR Calculation BUN/Creatinine Ratio Glucose POC Glucose 146 H Calculated Osmolality Calcium Magnesium B-Natriuretic Peptide 278 H 11/05/16 12:14 WBC RBC Hgb Hct MCV MCH MCHC RDW Plt Count MPV Neut % (Auto) Lymph % (Auto) [place] % (Auto) Eos % (Auto) Baso % (Auto) Neut # (Auto) Lymph # (Auto) [place] # (Auto) Eos # (Auto) Baso # (Auto) Immature Gran % Nucleated RBC % Immature Gran # Nucleated RBCs # Sodium Potassium Chloride Carbon Dioxide Anion Gap BUN Creatinine GFR Calculation BUN/Creatinine Ratio Glucose POC Glucose 154 H Calculated Osmolality Calcium Magnesium B-Natriuretic Peptide - EKG EKG results: interpreted by me
--- NOTE | 2016-11-05 14:37 | Pulmonology Progress Note ---
Pulmonary - PN: Subj Interval history: Patient with CHF and PH, was seen in consult by Dr Brizuela for shortness of breath. [place] to have pulmonary edema. Patient very sleepy today during exam but says his breathing is better than previously. Exam (Progress Note) - Constitutional Vitals: Period Temp Pulse Resp BP Sys/Maloney Pulse Ox Last 24 Hr 98 F-99.5 F 51-96 20-22 112-147/56-64 90-97 General appearance: no acute distress - Head Head exam: Present: normal inspection - ENT ENT exam: Present: normal exam - Respiratory Respiratory exam: Present: clear to auscultation bilaterally - Cardiovascular Cardiovascular exam: Present: regular rate and rhythm - Neurological Exam Neurological exam: Present: other (patient sleepy but appears to be answering questions appropriately) Results - Labs CBC & BMP: 11/05/16 03:06 11/05/16 03:06 Lab Results: I have reviewed the past 24 hour labs - Diagnostic Findings Procedure: Chest x-ray: image reviewed by me, report reviewed by me (reviewed image and report) Assessment and Plan (1) Diastolic CHF Status: Acute Current Visit: Yes Qualifiers: Congestive heart failure chronicity: acute on chronic Qualified Code(s): I50.33 - Acute on chronic diastolic (congestive) heart failure (2) Pulmonary edema Status: Acute Assessment and plan: Patients chest xray still looks a little wet. Diuretics being adjusted by nephro. Will continue to monitor Current Visit: Yes
[2016-11-05] MEDS ORDERED: MAGNESIUM CITRATE 300 ML BOTTLE PO PRN (15:52)
--- NOTE | 2016-11-05 17:26 | XRay Report ---
History: Congestive heart failure Date: 11/05/2016 Study: Chest x-ray PA and lateral Comparison exam: November 04, 2016 The cardiac silhouette is borderline prominent. The mediastinal contour is unchanged in this patient status post prior median sternotomy. The pulmonary vasculature is slightly prominent. There is patchy and hazy edema/infiltrate scattered in the mid to lower lung zones bilaterally, grossly similar. There is no significant layering pleural effusion. Osseous structures are unchanged. Impression: Continued bilateral pulmonary edema with or without underlying infiltrate, grossly similar PROCEDURE INTERPRETED AT [facility] DEPARTMENT OF RADIOLOGY Final Report Signed by: Dr. Aspen Champion
[2016-11-05] MEDS: ONDANSETRON 4 MG/2 ML VIAL IV PRN (22:35)
[2016-11-06] MEDS: ALBUTEROL 2.5 MG/3 ML NEB RESP TX SCH ×4 (00:25→19:38)
[2016-11-06 05:22] LABS: Basophils % 0.3 % (0.0-0.8); Eosinophils # 0.3 10*3/uL (0.0-0.87); Eosinophils % 4.6 % (0.00-10.9); Hematocrit 29.3 VOL% (42.0-52.0); Hemoglobin 9.3 GM/DL (14.0-18.0); Immature Granulocytes Absolute 0.07 #; Lymphocytes # 0.6 10*3/uL (1.4-4.0); Lymphocytes % 8.6 % (21.2-54.2); Mean Corpuscular HGB Conc 31.7 GM/DL (32-36); Mean Corpuscular Hemoglobin 26 PG (27-34); Mean Corpuscular Volume 82.5 FL (87-102); Monocytes # 0.6 10*3/uL (0.11-0.8); Monocytes % 8.3 % (1.7-12.7); Neutrophils # 5.3 10*3/uL (1.4-7.4); Neutrophils % 77.2 % (38.7-73.9); Platelet Count 157 T/CUMM (130-400); Red Blood Count 3.55 MC/CUMM (3.8-5.5); Red Cell Distribution Width 16.6 % (9.3-17.3); White Blood Count 6.9 T/CUMM (4-12)
[2016-11-06 05:49] LABS: Magnesium 2.9 MG/DL (1.8-2.4); Osmolality,Calculated 287.1 MOS/KG (273-304); Potassium 5.3 MMOL/L (3.5-5.1)
[2016-11-06] MEDS: INSULIN LISPRO 100 UNIT/ML SUBCUT SCH ×4 (09:24→22:16)
[2016-11-06] MEDS: FOLIC ACID 0.4 MG TABLET PO SCH (09:26)
[2016-11-06] MEDS: ASPIRIN EC 81 MG TABLET PO SCH (09:27)
[2016-11-06] MEDS: CHOLECALCIFEROL 1,000 UNIT TABLET PO SCH (09:27)
[2016-11-06] MEDS: AMIODARONE 200 MG TABLET PO SCH (09:27)
[2016-11-06] MEDS: ATORVASTATIN 40 MG TABLET PO SCH (09:27)
[2016-11-06] MEDS: MAGNESIUM OXIDE 400 MG TABLET PO SCH (09:27)
[2016-11-06] MEDS: PANTOPRAZOLE 40 MG TABLET PO SCH ×2 (09:28→16:40)
[2016-11-06] MEDS: DOCUSATE SODIUM 100 MG CAPSULE PO SCH ×2 (09:28→22:16)
[2016-11-06] MEDS: COLCHICINE 0.6 MG TABLET PO SCH (09:28)
[2016-11-06] MEDS: METOPROLOL TARTRATE 25 MG TABLET PO SCH ×2 (09:28→22:13)
[2016-11-06] MEDS: ALLOPURINOL 300 MG TABLET PO SCH (09:28)
[2016-11-06] MEDS: HEPARIN 5,000 UNIT/1 ML VIAL SUBCUT SCH ×2 (09:29→22:34)
[2016-11-06] MEDS: MUPIROCIN 2% OINT 22 GM TUBE TOP SCH ×2 (09:29→22:14)
[2016-11-06] MEDS: FUROSEMIDE 80 MG TABLET PO SCH (09:32)
--- NOTE | 2016-11-06 10:02 | Cardiology Progress Note ---
Assessment and Plan (1) Chronic obstructive pulmonary disease Status: Acute Assessment and plan: 71-year-old male, history of paroxysmal A. fib, bioprosthetic aortic valve, diastolic heart failure, suspected severe NOBLE, diabetes mellitus, hypertension, hyperlipidemia. -Paroxysmal A. fib. Continue amiodarone, low-dose beta-jim. Currently, in sinus rhythm. His anticoagulation was stopped in the past due to unstable INRs. Severe CKD limits options with new agents. He is also quite anemic. Continue aspirin. Had occasional Mobitz 1 second-degree AV block, not symptomatic. -Hypertension. Blood pressure is elevated today. Increase hydralazine 200 mg 3 times daily. This may also help with the pulmonary hypertension. -Abd discomfort, constipation. Improved. Continue laxatives as needed. Current Visit: Yes (2) Diabetes mellitus Status: Chronic Current Visit: Yes Qualifiers: Diabetes mellitus type: type 2 Diabetes mellitus complication status: with kidney complications Diabetes mellitus complication detail: with chronic kidney disease Diabetes mellitus head neck surgeon insulin use: with head neck surgeon use Chronic kidney disease stage: stage 4 (severe) Qualified Code(s): E11.22 - Type 2 diabetes mellitus with diabetic chronic kidney disease; N18.4 - Chronic kidney disease, stage 4 (severe); Z79.4 - halfway (current) use of insulin (3) Acute CVA (cerebrovascular accident) Status: Acute Current Visit: No (4) Hypertension Status: Chronic Current Visit: Yes (5) Anemia Status: Chronic Current Visit: No Cardiology - PN: Subj Interval history: He is feeling weak. Shortness of breath improved. Creatinine keeps increasing. Exam (Progress Note) - Constitutional Vitals: Period Temp Pulse Resp BP Sys/Maloney Pulse Ox Last 24 Hr 98 F-98.6 F 74-88 16-20 117-157/57-69 90-99 General appearance: normal weight, over weight - Head Head exam: Present: normal inspection, normocephalic - Eye Eye exam: Absent: conjunctival injection Pupils: Absent: dilated - ENT ENT exam: Present: normal external ear exam - Neck Neck exam: Present: normal inspection - Respiratory Respiratory exam: Present: decreased breath sounds, prolonged expiratory phase. Absent: wheezes - Cardiovascular Cardiovascular exam: Present: regular rate and rhythm, systolic murmur - GI/Abdominal GI/Abdominal exam: Present: normal bowel sounds, distended. Absent: firm, guarding - Extremities Exam Extremities exam: Present: normal inspection, normal capillary refill, edema (1+ ) - Back Exam Back exam: Present: normal inspection - Neurological Exam Neurological exam: Present: alert, oriented X3 - Psychiatric Psychiatric exam: Present: normal affect, normal mood - Skin Skin exam: Present: normal color, warm. Absent: cyanosis Result/EKG - Labs CBC & BMP: 11/06/16 04:59 11/06/16 04:59 Lab Results: I have reviewed the past 24 hour labs Labs: Laboratory Results - last 24 hr 11/05/16 11/05/16 11/05/16 12:14 17:17 19:52 WBC RBC Hgb Hct MCV MCH MCHC RDW Plt Count MPV Neut % (Auto) Lymph % (Auto) [place] % (Auto) Eos % (Auto) Baso % (Auto) Neut # (Auto) Lymph # (Auto) [place] # (Auto) Eos # (Auto) Baso # (Auto) Immature Gran % Nucleated RBC % Immature Gran # Nucleated RBCs # Sodium Potassium Chloride Carbon Dioxide Anion Gap BUN Creatinine GFR Calculation BUN/Creatinine Ratio Glucose POC Glucose 154 H 159 H 143 H Calculated Osmolality Calcium Magnesium B-Natriuretic Peptide 11/06/16 11/06/16 11/06/16 04:59 04:59 04:59 WBC 6.9 RBC 3.55 L Hgb 9.3 L Hct 29.3 L MCV 82.5 L MCH 26 L MCHC 31.7 L RDW 16.6 Plt Count 157 MPV 9.0 L Neut % (Auto) 77.2 H Lymph % (Auto) 8.6 L [place] % (Auto) 8.3 Eos % (Auto) 4.6 Baso % (Auto) 0.3 Neut # (Auto) 5.3 Lymph # (Auto) 0.6 L [place] # (Auto) 0.6 Eos # (Auto) 0.3 Baso # (Auto) 0.0 Immature Gran % 1.0 Nucleated RBC % 0.0 Immature Gran # 0.07 Nucleated RBCs # 0.00 Sodium 135 L Potassium 5.3 H Chloride 100 Carbon Dioxide 24 Anion Gap 16.3 H BUN 55 H Creatinine 5.40 H GFR Calculation 14 BUN/Creatinine Ratio 10.00 Glucose 151 H POC Glucose Calculated Osmolality 287.1 Calcium 8.0 L Magnesium 2.9 H B-Natriuretic Peptide 323 H 11/06/16 07:25 WBC RBC Hgb Hct MCV MCH MCHC RDW Plt Count MPV Neut % (Auto) Lymph % (Auto) [place] % (Auto) Eos % (Auto) Baso % (Auto) Neut # (Auto) Lymph # (Auto) [place] # (Auto) Eos # (Auto) Baso # (Auto) Immature Gran % Nucleated RBC % Immature Gran # Nucleated RBCs # Sodium Potassium Chloride Carbon Dioxide Anion Gap BUN Creatinine GFR Calculation BUN/Creatinine Ratio Glucose POC Glucose 152 H Calculated Osmolality Calcium Magnesium B-Natriuretic Peptide - EKG EKG results: interpreted by me
--- NOTE | 2016-11-06 11:07 | Nephrology Progress Note ---
Nephrology - PN: Subj Interval history: Mr. Wayne is seen in follow-up of his renal impairment. He is breathing better today following an increase in his diuretics. He still has some end expiratory wheeze but not as prominent as yesterday. He is able to lie flat and breathe without difficulty. Creatinine is 5.4, up slightly. Exam (PN)-Nephrology - Vital Signs Vital signs: Period Temp Pulse Resp BP Sys/Maloney Pulse Ox Last 24 Hr 98 F-98.6 F 74-88 16-20 117-157/57-69 90-99 - Lab 11/06/16 04:59 11/06/16 04:59 Most recent lab results Calcium 8.0 MG/DL (8.5-10.1) L 11/06/16 04:59 Magnesium 2.9 MG/DL (1.8-2.4) H 11/06/16 04:59
[2016-11-06] MEDS: ONDANSETRON 4 MG/2 ML VIAL IV PRN ×2 (11:35→19:28)
--- NOTE | 2016-11-06 11:37 | Hospitalist Progress Note ---
Assessment and Plan (1) Diastolic CHF Status: Acute Current Visit: Yes Qualifiers: Congestive heart failure chronicity: acute on chronic Qualified Code(s): I50.33 - Acute on chronic diastolic (congestive) heart failure (2) Chronic kidney disease, stage IV (severe) Status: Chronic Current Visit: Yes (3) Chronic obstructive pulmonary disease Status: Acute Current Visit: Yes Qualifiers: COPD type: unspecified COPD Qualified Code(s): J44.9 - Chronic obstructive pulmonary disease, unspecified (4) Diabetes mellitus Status: Chronic Current Visit: Yes Qualifiers: Diabetes mellitus type: type 2 Diabetes mellitus complication status: with kidney complications Diabetes mellitus complication detail: with chronic kidney disease Diabetes mellitus intermediate designer insulin use: with snf use Chronic kidney disease stage: stage 4 (severe) Qualified Code(s): E11.22 - Type 2 diabetes mellitus with diabetic chronic kidney disease; N18.4 - Chronic kidney disease, stage 4 (severe); Z79.4 - [facility] (current) use of insulin (5) Hypertension Status: Chronic Assessment and plan: -Cardiology following, continue current medication, continue oxygen per nasal cannula -Continue nebulized breathing treatments -Creatinine worsening, nephrology following, will continue current recommendations -Continue amiodarone, hydralazine and beta blockers; cardiology following -Continue Lasix daily, monitor proBNP levels Current Visit: Yes Hospitalist: Subjective Interval history: The patient is a 71-year-old male admitted to the hospital with paroxysmal atrial fibrillation and acute congestive heart failure exacerbation. The patient has had worsening renal function over the past few days. He also complains of some nausea today. He states that he has had a bowel movement overnight. Exam - Constitutional Vitals: Period Temp Pulse Resp BP Sys/Maloney Pulse Ox Last 24 Hr 98 F-98.6 F 74-88 16-20 117-157/57-69 90-99 General appearance: over weight - Head Head exam: Present: normal inspection - Eye Eye exam: Present: EOMI Pupils: Present: TAMIA - Neck Neck exam: Present: normal inspection - Respiratory Respiratory exam: Present: clear to auscultation bilaterally. Absent: accessory muscle use, rales, rhonchi - Cardiovascular Cardiovascular exam: Present: regular rate and rhythm - GI/Abdominal GI/Abdominal exam: Present: normal bowel sounds, soft. Absent: ascites, distended - Extremities Exam Extremities exam: Present: full ROM - Neurological Exam Neurological exam: Present: alert, oriented X3 - Psychiatric Psychiatric exam: Present: normal affect - Skin Skin exam: Present: normal color Results - Labs CBC & BMP: 11/06/16 04:59 11/06/16 04:59 Lab Results: I have reviewed the past 24 hour labs
[2016-11-06] MEDS: CLORAZEPATE 3.75 MG TABLET PO PRN ×2 (12:37→22:33)
--- NOTE | 2016-11-06 14:26 | Pulmonology Progress Note ---
Pulmonary - PN: Subj Interval history: Patient seen today, still very lethargic. He answers questions appropriately and wakes to voice, but still sleepy. Nursing reports he was up all night with some GI distress. He did endorse some exertional dyspnea Exam (Progress Note) - Constitutional Vitals: Period Temp Pulse Resp BP Sys/Maloney Pulse Ox Last 24 Hr 98.2 F-98.6 F 63-88 15-20 117-157/57-69 90-99 General appearance: no acute distress - Head Head exam: Present: normal inspection - Neck Neck exam: Present: normal inspection - Respiratory Respiratory exam: Present: wheezes - Cardiovascular Cardiovascular exam: Present: regular rate and rhythm - GI/Abdominal GI/Abdominal exam: Present: normal bowel sounds - Neurological Exam Neurological exam: Present: other (per HPI) Results - Labs CBC & BMP: 11/06/16 04:59 11/06/16 04:59 Lab Results: I have reviewed the past 24 hour labs - Diagnostic Findings Procedure: Chest x-ray: image reviewed by me, report reviewed by me (reviewed ) Assessment and Plan (1) Diastolic CHF Status: Acute Current Visit: Yes Qualifiers: Congestive heart failure chronicity: acute on chronic Qualified Code(s): I50.33 - Acute on chronic diastolic (congestive) heart failure (2) Pulmonary edema Status: Acute Assessment and plan: Patient having more wheezing today. Will start prednisone and see if that improves things. May need chest CT Current Visit: Yes (3) Altered mental status Status: Acute Assessment and plan: Patient continues to be lethargic. Head CT was clear, and patient is on pain medications at home. May be solely related to not sleeping well at night, however would keep close eye on him and consider cutting back on opiates Current Visit: Yes
[2016-11-07] MEDS: ALBUTEROL 2.5 MG/3 ML NEB RESP TX SCH ×4 (03:25→20:52)
[2016-11-07] MEDS: ACETAMINOPHEN 325 MG TABLET PO PRN ×2 (04:10→15:52)
[2016-11-07 05:17] LABS: Basophils % 0.3 % (0.0-0.8); Eosinophils # 0.3 10*3/uL (0.0-0.87); Eosinophils % 5.3 % (0.00-10.9); Hemoglobin 9.2 GM/DL (14.0-18.0); Immature Granulocytes % 1.2 %; Immature Granulocytes Absolute 0.08 #; Lymphocytes # 0.6 10*3/uL (1.4-4.0); Lymphocytes % 9.5 % (21.2-54.2); Mean Corpuscular HGB Conc 31.7 GM/DL (32-36); Mean Corpuscular Hemoglobin 26 PG (27-34); Mean Corpuscular Volume 81.2 FL (87-102); Monocytes # 0.5 10*3/uL (0.11-0.8); Monocytes % 8.4 % (1.7-12.7); Neutrophils # 4.9 10*3/uL (1.4-7.4); Neutrophils % 75.3 % (38.7-73.9); Platelet Count 182 T/CUMM (130-400); Red Blood Count 3.57 MC/CUMM (3.8-5.5); Red Cell Distribution Width 16.6 % (9.3-17.3); White Blood Count 6.5 T/CUMM (4-12)
[2016-11-07 05:54] LABS: Calcium 8.1 MG/DL (8.5-10.1); Magnesium 2.9 MG/DL (1.8-2.4)
[2016-11-07] MEDS: ONDANSETRON 4 MG/2 ML VIAL IV PRN ×2 (07:54→17:40)
[2016-11-07] MEDS: INSULIN LISPRO 100 UNIT/ML SUBCUT SCH ×4 (08:05→20:51)
[2016-11-07] MEDS: predniSONE 20 MG TABLET PO SCH (08:32)
[2016-11-07] MEDS: METOPROLOL TARTRATE 25 MG TABLET PO SCH ×2 (08:33→20:52)
[2016-11-07] MEDS: PANTOPRAZOLE 40 MG TABLET PO SCH ×2 (08:33→16:00)
[2016-11-07] MEDS: ALLOPURINOL 300 MG TABLET PO SCH (08:33)
[2016-11-07] MEDS: FOLIC ACID 0.4 MG TABLET PO SCH (08:33)
[2016-11-07] MEDS: DOCUSATE SODIUM 100 MG CAPSULE PO SCH ×2 (08:33→20:50)
[2016-11-07] MEDS: ATORVASTATIN 40 MG TABLET PO SCH (08:33)
[2016-11-07] MEDS: FUROSEMIDE 80 MG TABLET PO SCH (08:33)
[2016-11-07] MEDS: CHOLECALCIFEROL 1,000 UNIT TABLET PO SCH (08:33)
[2016-11-07] MEDS: AMIODARONE 200 MG TABLET PO SCH (08:33)
[2016-11-07] MEDS: ASPIRIN EC 81 MG TABLET PO SCH (08:34)
[2016-11-07] MEDS: HEPARIN 5,000 UNIT/1 ML VIAL SUBCUT SCH ×3 (08:41→23:06)
[2016-11-07] MEDS: MAGNESIUM OXIDE 400 MG TABLET PO SCH (08:45)
[2016-11-07] MEDS: MUPIROCIN 2% OINT 22 GM TUBE TOP SCH ×2 (08:46→20:53)
--- NOTE | 2016-11-07 09:50 | Hospitalist Progress Note ---
Assessment and Plan - Time spent with patient Time spent with patient: Less than 30 minutes (1) CVA (cerebral vascular accident) Status: Acute Assessment and plan: 71WM w history of AVR in 2013, COPD, anemia, CRF, DM, HL admitted by hospitalist w paroxysmal afib and acute CHF exacerbation. pt is being followed by cardiology, pulmonology, and nephrology. dr holm to see and examine pt and further recommendations to follow. DM--blood sugars doing ok right now. he is on SSI. steroids were started yesterday so will cont to monitor HTN/afib/sp AVR/CHF--cardiology is managing. pt is on amiodorone, ASA, and low dose BB. he is in NSR and has occasional Mobitz 1 second-degree AV block that is asymptomatic. hydralazine was increased yesterday for elevated BP and this is improved this am. pt is currently on heparin drip. will need to be placed on po anticoagulation at some point if cardiology agrees. cont oxygen. he is requiring consant oxygen at 3L NC now. sats from 88-93. pt is undergoing diuresis for chf and this is effecting his kidney function. creatinine up to 5.8 but he clearly needs diuresis. will let cardiology and nephrology manage this balance. BNP is 382 which is better than admission of 495. constipation--resolved. cont laxatives prn anemia--pt did receive 1 unit of blood on 11/02. HH stable at 03/10 acute on chronic kidney disease--creatinine conts to rise. it is 5.8 today. nephrology is following. pt is still undergoing diuresis chronic pain--pt is on norco 10 q8h prn Current Visit: Yes (2) S/P AVR (aortic valve replacement) Status: Acute Current Visit: Yes (3) Chronic obstructive pulmonary disease Status: Acute Current Visit: Yes Qualifiers: COPD type: unspecified COPD Qualified Code(s): J44.9 - Chronic obstructive pulmonary disease, unspecified (4) Diabetes mellitus Status: Chronic Current Visit: Yes Qualifiers: Diabetes mellitus type: type 2 Diabetes mellitus complication status: with kidney complications Diabetes mellitus complication detail: with chronic kidney disease Diabetes mellitus snf insulin use: with snf use Chronic kidney disease stage: stage 4 (severe) Qualified Code(s): E11.22 - Type 2 diabetes mellitus with diabetic chronic kidney disease; N18.4 - Chronic kidney disease, stage 4 (severe); 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 (5) Hypertension Status: Chronic Current Visit: Yes (6) Dyslipidemia Status: Chronic Current Visit: No (7) Chronic kidney disease, stage IV (severe) Status: Chronic Current Visit: Yes (8) Diastolic CHF Status: Acute Current Visit: Yes Qualifiers: Congestive heart failure chronicity: acute on chronic Qualified Code(s): I50.33 - Acute on chronic diastolic (congestive) heart failure (9) Pulmonary edema Status: Acute Current Visit: Yes (10) Anemia Status: Chronic Current Visit: Yes (11) Altered mental status Status: Acute Current Visit: Yes (12) Chronic pain Status: Acute Current Visit: Yes Hospitalist: Subjective Interval history: pt is not feeling any better. he continues to have SOB at rest and worsens w even the slightest movements. his appetite is nonexistent but he is now having BMs. he is sitting on the edge of the bed in tripod position. Exam - Constitutional Vitals: Period Temp Pulse Resp BP Sys/Maloney Pulse Ox Last 24 Hr 97.4 F-100.2 F 63-84 15-22 127-149/58-67 88-99 Exam: 71WM, mild distress due to SOB, alert and oriented chest w exp wheeze and decreased air movement cv rrr abd obese nt ext no edema Results - Labs CBC & BMP: 11/07/16 04:15 11/07/16 04:15 Lab Results: I have reviewed the past 24 hour labs - Diagnostic Findings Procedure: Chest x-ray: pending
--- NOTE | 2016-11-07 11:04 | XRay Report ---
XR chest 2V Date: 11/07/2016 4:00 AM History: CHF Comparison: 11/05/2016 Technique: PA and lateral chest Findings: The heart is minimally enlarged with prior median sternotomy and coronary valve replacement. Reduced parenchymal findings in the lungs with persistent ill-defined densities. Stable mediastinum and osseous structures. Impression: Improved CHF with underlying chronic scarring. Persistent ill-defined pulmonary densities and follow-up chest x-ray is recommended. Prior median sternotomy and cardiac valve replacement. PROCEDURE INTERPRETED AT [facility] DEPARTMENT OF RADIOLOGY Final Report Signed by: Dr. Brittany Vincent
[2016-11-07] MEDS: CLORAZEPATE 3.75 MG TABLET PO PRN ×2 (11:09→20:50)
[2016-11-07] MEDS: MORPHINE 2 MG/1 ML SYRINGE IV PRN ×2 (11:24→15:44)
[2016-11-07] MEDS ORDERED: MORPHINE 2 MG/1 ML SYRINGE ONE (11:26)
--- NOTE | 2016-11-07 11:59 | Cardiology Progress Note ---
Assessment and Plan - Time spent with patient Time spent with patient: Greater than 30 minutes (Chart review, documentation, history) (1) Hypertension Status: Chronic Current Visit: Yes Qualifiers: Hypertension type: essential hypertension Qualified Code(s): I10 - Essential (primary) hypertension (2) Renal insufficiency Status: Chronic Current Visit: No (3) Anemia Status: Chronic Current Visit: No (4) Renal failure Status: Chronic Current Visit: No Qualifiers: Renal failure chronicity: chronic (5) Acute exacerbation of chronic obstructive airways disease Status: Acute Current Visit: No (6) Paroxysmal atrial fibrillation Status: Chronic Assessment and plan: Patient is in sinus rhythm today. He has first-degree AV block on telemetry. Apparently he had Mobitz type I AV block is not present at this time. Repeat an ECG tomorrow Current Visit: Yes (7) S/P AVR (aortic valve replacement) Status: Chronic Current Visit: Yes (8) CVA (cerebral vascular accident) Status: Acute Assessment and plan: Patient is extremely high risk for stroke however he also has very significant anemia. Very difficult situation Current Visit: Yes Qualifiers: CVA mechanism: embolism Cardiology - PN: Subj Interval history: Mr. Acosta complains of intense nausea. He has no other complaints. He is lying in the bed left lateral side head up about 5. He denies any chest pain or shortness of breath. Exam (Progress Note) - Constitutional Vitals: Period Temp Pulse Resp BP Sys/Maloney Pulse Ox Last 24 Hr 97.4 F-100.2 F 63-84 15-22 127-149/58-68 88-99 General appearance: morbidly obese - Eye Eye exam: Present: conjunctival injection - ENT ENT exam: Present: normal exam (ASA IV) - Neck Neck exam: Present: normal inspection - Respiratory Respiratory exam: Present: wheezes (Diffuse bilateral severe wheezing with prolonged expiratory phase. I do not hear rales) - Cardiovascular Cardiovascular exam: Present: regular rate and rhythm (PMI appears to be within normal limits he has an S4.) - GI/Abdominal GI/Abdominal exam: Present: normal bowel sounds (Normal bowel sounds nontender) - Extremities Exam Extremities exam: Absent: edema - Neurological Exam Neurological exam: Present: alert, oriented X3 - Psychiatric Psychiatric exam: Present: normal affect, normal mood - Skin Skin exam: Present: normal color, warm, dry Result/EKG - Labs CBC & BMP: 11/07/16 04:15 11/07/16 04:15 Labs: Laboratory Results - last 24 hr 11/06/16 11/06/16 11/06/16 12:27 16:36 20:49 WBC RBC Hgb Hct MCV MCH MCHC RDW Plt Count MPV Neut % (Auto) Lymph % (Auto) [place] % (Auto) Eos % (Auto) Baso % (Auto) Neut # (Auto) Lymph # (Auto) [place] # (Auto) Eos # (Auto) Baso # (Auto) Immature Gran % Nucleated RBC % Immature Gran # Nucleated RBCs # Sodium Potassium Chloride Carbon Dioxide Anion Gap BUN Creatinine GFR Calculation BUN/Creatinine Ratio Glucose POC Glucose 154 H 145 H 131 H Calculated Osmolality Calcium Magnesium B-Natriuretic Peptide 11/07/16 11/07/16 11/07/16 04:15 04:15 04:15 WBC 6.5 RBC 3.57 L Hgb 9.2 L Hct 29.0 L MCV 81.2 L MCH 26 L MCHC 31.7 L RDW 16.6 Plt Count 182 MPV 10.0 Neut % (Auto) 75.3 H Lymph % (Auto) 9.5 L [place] % (Auto) 8.4 Eos % (Auto) 5.3 Baso % (Auto) 0.3 Neut # (Auto) 4.9 Lymph # (Auto) 0.6 L [place] # (Auto) 0.5 Eos # (Auto) 0.3 Baso # (Auto) 0.0 Immature Gran % 1.2 Nucleated RBC % 0.0 Immature Gran # 0.08 Nucleated RBCs # 0.00 Sodium 136 Potassium 5.0 Chloride 99 Carbon Dioxide 22 Anion Gap 20.0 H BUN 54 H Creatinine 5.80 H GFR Calculation 12 BUN/Creatinine Ratio 9.00 Glucose 135 H POC Glucose Calculated Osmolality 288.0 Calcium 8.1 L Magnesium 2.9 H B-Natriuretic Peptide 382 H 11/07/16 11/07/16 07:56 11:24 WBC RBC Hgb Hct MCV MCH MCHC RDW Plt Count MPV Neut % (Auto) Lymph % (Auto) [place] % (Auto) Eos % (Auto) Baso % (Auto) Neut # (Auto) Lymph # (Auto) [place] # (Auto) Eos # (Auto) Baso # (Auto) Immature Gran % Nucleated RBC % Immature Gran # Nucleated RBCs # Sodium Potassium Chloride Carbon Dioxide Anion Gap BUN Creatinine GFR Calculation BUN/Creatinine Ratio Glucose POC Glucose 145 H 178 H Calculated Osmolality Calcium Magnesium B-Natriuretic Peptide
--- NOTE | 2016-11-07 14:16 | Nephrology Progress Note ---
Nephrology - PN: Subj Interval history: Mr. Acosta is seen in follow-up of his acute on chronic renal impairment. His creatinine is up to 5.8. He is breathing much better and is lying flat and is not wheezing. We will continue his 80 mg Lasix for now but if his creatinine continues to rise it certainly may have to be reevaluated. His weights are difficult to interpret due to their wild variability.. He has no edema Exam (PN)-Nephrology - Vital Signs Vital signs: Period Temp Pulse Resp BP Sys/Maloney Pulse Ox Last 24 Hr 97.4 F-100.2 F 73-84 16-22 127-149/58-68 88-97 - Lab 11/07/16 04:15 11/07/16 04:15 Most recent lab results Calcium 8.1 MG/DL (8.5-10.1) L 11/07/16 04:15 Magnesium 2.9 MG/DL (1.8-2.4) H 11/07/16 04:15
[2016-11-07] MEDS ORDERED: PROMETHAZINE 25 MG TABLET PO ONE (14:51)
--- NOTE | 2016-11-07 14:54 | Pulmonology Progress Note ---
Pulmonary - PN: Subj Interval history: Patient complaining of nausea, has gotten 4ml zofran without relief. Hasn't noticed any change in breathing since starting prednisone yesterday. Is more awake today though Exam (Progress Note) - Constitutional Vitals: Period Temp Pulse Resp BP Sys/Maloney Pulse Ox Last 24 Hr 97.4 F-100.2 F 73-84 16-22 127-149/58-68 88-97 General appearance: no acute distress - Neck Neck exam: Present: normal inspection - Respiratory Respiratory exam: Absent: accessory muscle use, stridor, wheezes - GI/Abdominal GI/Abdominal exam: Present: soft Results - Labs CBC & BMP: 11/07/16 04:15 11/07/16 04:15 Lab Results: I have reviewed the past 24 hour labs Assessment and Plan (1) Diastolic CHF Status: Acute Current Visit: Yes Qualifiers: Congestive heart failure chronicity: acute on chronic Qualified Code(s): I50.33 - Acute on chronic diastolic (congestive) heart failure (2) Pulmonary edema Status: Acute Assessment and plan: Patient has only gotten one day of prednisone, may take a few days. Would CT chest if no improvement tomorrow Current Visit: Yes (3) Nausea Status: Acute Assessment and plan: Will increase Zofran to 8mg and try a one time dose of phenergan. Patient counseled that might make him sleepy Current Visit: Yes
[2016-11-08] MEDS: ALBUTEROL 2.5 MG/3 ML NEB RESP TX SCH ×4 (01:26→19:21)
[2016-11-08 05:58] LABS: Calcium 7.9 MG/DL (8.5-10.1); Osmolality,Calculated 288.2 MOS/KG (273-304); Potassium 4.7 MMOL/L (3.5-5.1)
[2016-11-08] MEDS: INSULIN LISPRO 100 UNIT/ML SUBCUT SCH ×4 (08:32→21:23)
[2016-11-08] MEDS: ACETAMINOPHEN 325 MG TABLET PO PRN (08:53)
[2016-11-08] MEDS: CHOLECALCIFEROL 1,000 UNIT TABLET PO SCH (08:53)
[2016-11-08] MEDS: ALLOPURINOL 300 MG TABLET PO SCH (08:54)
[2016-11-08] MEDS: ASPIRIN EC 81 MG TABLET PO SCH (08:54)
[2016-11-08] MEDS: FOLIC ACID 0.4 MG TABLET PO SCH (08:54)
[2016-11-08] MEDS: PANTOPRAZOLE 40 MG TABLET PO SCH ×2 (08:54→17:35)
[2016-11-08] MEDS: predniSONE 20 MG TABLET PO SCH (08:54)
[2016-11-08] MEDS: METOPROLOL TARTRATE 25 MG TABLET PO SCH ×2 (08:54→21:22)
[2016-11-08] MEDS: DOCUSATE SODIUM 100 MG CAPSULE PO SCH ×2 (08:54→21:22)
[2016-11-08] MEDS: AMIODARONE 200 MG TABLET PO SCH (08:55)
[2016-11-08] MEDS: MAGNESIUM OXIDE 400 MG TABLET PO SCH (08:55)
[2016-11-08] MEDS: FUROSEMIDE 80 MG TABLET PO SCH (08:55)
[2016-11-08] MEDS: MUPIROCIN 2% OINT 22 GM TUBE TOP SCH ×2 (08:55→21:23)
[2016-11-08] MEDS: ATORVASTATIN 40 MG TABLET PO SCH (08:55)
[2016-11-08] MEDS: COLCHICINE 0.6 MG TABLET PO SCH (08:55)
[2016-11-08] MEDS: HEPARIN 5,000 UNIT/1 ML VIAL SUBCUT SCH ×2 (09:01→22:27)
[2016-11-08 09:14] LABS: Basophils % 0.1 % (0.0-0.8); Eosinophils % 0.4 % (0.00-10.9); Hematocrit 28.6 VOL% (42.0-52.0); Hemoglobin 9.2 GM/DL (14.0-18.0); Immature Granulocytes % 1.3 %; Immature Granulocytes Absolute 0.09 #; Lymphocytes # 0.8 10*3/uL (1.4-4.0); Mean Corpuscular HGB Conc 32.2 GM/DL (32-36); Mean Corpuscular Hemoglobin 26 PG (27-34); Mean Platelet Volume 10.4 FL (9.6-12.0); Monocytes # 0.6 10*3/uL (0.11-0.8); Monocytes % 8.8 % (1.7-12.7); Neutrophils # 5.5 10*3/uL (1.4-7.4); Neutrophils % 78.4 % (38.7-73.9); Platelet Count 210 T/CUMM (130-400); Red Blood Count 3.53 MC/CUMM (3.8-5.5); Red Cell Distribution Width 16.4 % (9.3-17.3)
--- NOTE | 2016-11-08 09:32 | XRay Report ---
XR chest 1V portable Indication: CHF Comparison: Chest x-ray 11/07/2016 Technique: Portable AP chest was performed. Findings: The heart is upper limits of normal in size, stable. Previous sternotomy and stable. Pulmonary vasculature is prominent within the central chest. Hilar structures demonstrate fairly symmetric appearance. The lungs demonstrates scattered airspace opacities in a pattern similar to the previous study. Bones and soft tissues demonstrate no evidence of acute pathology. Impression: 1. Little overall change in the chest has occurred. Scattered bilateral airspace opacities remain present. 11/08/2016 9:28 AM PROCEDURE INTERPRETED AT [facility] [place] DEPARTMENT OF RADIOLOGY Final Report Signed by: Dr. Pepito Santos
--- NOTE | 2016-11-08 10:19 | Pulmonology Progress Note ---
Pulmonary - PN: Subj Interval history: This is a 71-year-old white male. I saw him in pulmonary consultation 2016. My impressions were. 1. Acute congestive heart failure. 2. Aortic valve replacement 2012 3. COPD. Past history tobacco abuse 3.1 Anemia. Folic acid level is low and vitamin B12 level is normal. #4 chronic renal failure 5. Low calcium and low albumin. 6. Insulin-dependent diabetes mellitus with a history of diabetic ketoacidosis 7. Hyperlipidemia 8. History of atrial fib 9. Symptoms suggestive of obstructive sleep apnea 10. Mild pulmonary hypertension. Etiology undetermined. Note elevated left ventricular filling blood pressures on echocardiogram. Previous echocardiogram was obtained when the patient was in congestive heart failure. Obstructive sleep apnea could be a contributory factor. 11. Past history of deep venous thrombophlebitis and pulmonary emboli. No evidence of either found during initial workup this admission 12. See past history 11/01/2016. Chest x-rays are pending. I have ordered the EPA and lateral for today and tomorrow. Patient still has shortness of breath and he complains of chest pain with exertion. To me this chest pain is worrisome for cardiac angina. Pulmonary hypertension can sometimes cause similar pain. Last admission the patient's pulmonary artery pressures were 65-70 mmHg. This echocardiogram was obtained while the patient was in congestive heart failure. I am going to order a repeat echocardiogram for comparison pulmonary artery pressures. Patient's on Procardia XL 60 which is a good medicine for pulmonary hypertension. We could go higher. We could add Revatio if it appears safe from a cardiology standpoint. Occasionally Apresoline works for pulmonary hypertension. Apresoline could be added if needed to help with cardiac output. Patient's H&H is 7.6/23.9. He is low folic acid. His B12 is normal. He also is low on iron. I have started replacement with iron and also folic acid. His vitamin D level is low and vitamin D replacement has been started. I am going to transfuse the patient with a unit of blood today and if he tolerates this well will probably should transfuse another unit tomorrow. This will certainly improve his oxygen carrying capacity. BNP is pending. Note sedimentation rate is 96. Doppler venograms were negative for deep venous thrombophlebitis. Ventilation perfusion lung scan showed no perfusion defects. 11/02/2016. Today's x-ray shows mild residual congestive heart failure. BNP remains elevated at 556. Noted creatinine is 4.60 with a BUN of 52 and this may falsely elevate his BNP. Patient's vitamin D is low and will order replacement. Folic acid is also low. B12 is in the normal range of 438. Posttransfusion H&H is 8.4/26.9. Iron saturation is also low. Iron has not been started. Patient has some persistent nausea. Nares are positive for MRSA. Repeat echocardiogram done 10/29/2016 shows ejection fraction 65% with grade 3 diastolic dysfunction and moderate biatrial enlargement. There is mild atrial regurgitation. Trace of aortic insufficiency. Pulmonary artery pressures are estimated to be 79 mmHg. Patient's on Procardia XL 60 and I will increase this to 120 mg daily. We did consider Revatio if cardiology feels this is safe. Would start with 20 mg every 8 hours. Alternatively we could try Apresoline 25 3 times daily which occasionally helps and may help with the patient's cardiac output. Will ask for Dr. Bueno's comment. 11/03/2016. Today's chest x-ray continues to show mild pulmonary edema. 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 CBC is stable. The rest of today's lab is pending. Dr. Lydia Ca sleep medicine note has been reviewed and I agree with his plans. Patient's was apparently asleep on the bed. She moves her foot but she never turned over or participate in our conversation today. Santosh Courtney nurse practitioner was present. Patient's had some slight fever related to blood transfusions. I do not see anything so far that looks like amiodarone along. Amiodarone was only recently added. Procardia XL was increased to 60 mg twice a day on 11/02/2016 an attempt to treat the patient's pulmonary hypertension 11/04/2016. This patient had altered mental status and had a normal CT of the head yesterday. I reviewed his medicines from last night. He received [place] 10. 4 mg of morphine and transfers seen. He is a little slow on the mental uptake this morning and I suspect the answer lies in his medicines. This patient has had heart failure that has not quite resolved. His chest x-ray has not been done today. See my note from 11/03/2016. I reviewed the number of old x-rays at his baseline x-ray should looked like x-rays that were done on 2014, 01/05/2016 and on 09/26/2016. The changes he has now are secondary to none resolved pulmonary edema. These are exactly the same changes that he has had before when he has pulmonary edema. The only outlier would be a reaction to amiodarone but he is only been on this for short period of time BNP is elevated at 307. Patient creatinine remains elevated 490 with a BUN of 52 and normal electrolytes. H&H a little bit better at 9.9/31.2. White count 6200 and platelets are 182,000. Will continue to follow his chest x-ray and lab. 11/08/2016. Chest x-ray is essentially unchanged showing increased interstitial markings in all 5 lobes of the lung. Creatinine 6.60 with a BUN of 63. Sodium 134. Potassium 4.7. Magnesium is 3.2. Natruretic peptide is 625. H&H is 9.2/ 28.6. White count is 7078 segs 11 lymphs and 9 mono s. There are no new cultures. Patient is much more alert and oriented today. He says he is breathing much better. Notes from Dr. Valorie Mascorro and Dr. Eliud Brito's have been reviewed Physical exam. Vital signs. See below. Face is symmetrical. Lips and tongue are normal Neck. Symmetrical no meningismus. Lymphatics. No submandibular cervical supraclavicular or epitrochlear adenopathy. Chest is fairly clear Heart lateral PMI Abdomen. Nontender. Positive bowel sounds Lower extremities. Skin no evidence of chronic venous stasis. No edema. Neurologic. Cranial nerves are intact. Long track motor functions intact. Gait was not tested. Psychiatric. Oriented 3. The remainder the physical exam is noncontributory. Plan. 11/01/2016. See my note above. See numbers 1 through 9 below 1. Diuresis. Watch BMP. 2. Replace folic acid 3. Replace iron 4. Blood transfusion 5. Deep venous thrombophlebitis prevention protocol 6. Replace vitamin D 7. Follow-up chest x-ray #8. Repeat echocardiogram. Consider increase of Procardia. Consider Revatio say from a cardiology standpoint. An outlier for pulmonary hypertension would be Apresoline. 11/02/2016. See today's note above. Increase Procardia XL 60 to twice daily . Last Dr. Moseley his opinion concerning Revatio and/or Apresoline 11/03/2016. See today's note above. 11/04/2016. See today's note above. Considering cutting back significantly on this patient pain medicines. I suspect these are the cause of his altered mental status. We will follow-up his chest x-ray and lab. Dr. Radha mcadams will see the patient this week 11/08/2016. See today's note above. Exam (Progress Note) - Constitutional Vitals: Period Temp Pulse Resp BP Sys/Maloney Pulse Ox Last 24 Hr 97.3 F-98.3 F 73-84 16-20 109-143/42-68 91-98 Results - Labs CBC & BMP: 11/08/16 08:51 11/08/16 04:32
--- NOTE | 2016-11-08 10:27 | Hospitalist Progress Note ---
Assessment and Plan - Time spent with patient Time spent with patient: Less than 30 minutes (1) CVA (cerebral vascular accident) Status: Acute Assessment and plan: 71WM w history of AVR in 2012, COPD, anemia, CRF, DM, HL admitted by hospitalist w paroxysmal afib and acute CHF exacerbation. pt is being followed by cardiology, pulmonology, and nephrology. dr holm to see and examine pt and further recommendations to follow. DM--blood sugars doing ok right now. he is on SSI. steroids were started yesterday so will cont to monitor HTN/afib/sp AVR/CHF--cardiology is managing. pt is on amiodorone, ASA, and low dose BB. he is in NSR and has occasional Mobitz 1 second-degree AV block that is asymptomatic. hydralazine was increased yesterday for elevated BP and this is improved this am. pt is currently on heparin drip. will need to be placed on po anticoagulation at some point if cardiology agrees. cont oxygen. he is requiring consant oxygen at 3L NC now. sats from 88-93. pt is undergoing diuresis for chf and this is effecting his kidney function. creatinine up to 5.8 but he clearly needs diuresis. will let cardiology and nephrology manage this balance. BNP is 382 which is better than admission of 495. constipation--resolved. cont laxatives prn anemia--pt did receive 1 unit of blood on 11/02. HH stable at 03/10 acute on chronic kidney disease--creatinine conts to rise. it is 5.8 today. nephrology is following. pt is still undergoing diuresis chronic pain--pt is on norco 10 q8h prn 11/08/2016 patient feels much better today. He is breathing much easier and has nausea and pain have resolved. His blood sugars are running a little higher today but he is on steroids. We will continue to monitor this using sliding scale insulin. Cardiology is following as well. He is on amiodarone, aspirin, and low-dose beta-jim. He is in normal sinus rhythm at this time. His hydralazine was increased and his blood pressures are much better. Patient has a BNP of 625 today. Patient is undergoing diuresis for his CHF and he is on 80 mg daily. His creatinine did bump up to 6.6. Nephrology and cardiology are managing this. This is a difficult balance between his heart failure and kidney function. Dr. Holm to see and examined patient and further recommendations to follow. Current Visit: Yes Qualifiers: CVA mechanism: embolism (2) S/P AVR (aortic valve replacement) Status: Chronic Current Visit: Yes (3) Chronic obstructive pulmonary disease Status: Acute Current Visit: Yes Qualifiers: COPD type: unspecified COPD Qualified Code(s): J44.9 - Chronic obstructive pulmonary disease, unspecified (4) Diabetes mellitus Status: Chronic Current Visit: Yes Qualifiers: Diabetes mellitus type: type 2 Diabetes mellitus complication status: with kidney complications Diabetes mellitus complication detail: with chronic kidney disease Diabetes mellitus mcc insulin use: with long term care phlebotomist use Chronic kidney disease stage: stage 4 (severe) Qualified Code(s): E11.22 - Type 2 diabetes mellitus with diabetic chronic kidney disease; N18.4 - Chronic kidney disease, stage 4 (severe); Z79.4 - intermediate (current) use of insulin (5) Hypertension Status: Chronic Current Visit: Yes Qualifiers: Hypertension type: essential hypertension Qualified Code(s): I10 - Essential (primary) hypertension (6) Dyslipidemia Status: Chronic Current Visit: No (7) Chronic kidney disease, stage IV (severe) Status: Chronic Current Visit: Yes (8) Diastolic CHF Status: Acute Current Visit: Yes Qualifiers: Congestive heart failure chronicity: acute on chronic Qualified Code(s): I50.33 - Acute on chronic diastolic (congestive) heart failure (9) Pulmonary edema Status: Acute Current Visit: Yes (10) Anemia Status: Chronic Current Visit: Yes (11) Altered mental status Status: Acute Current Visit: Yes (12) Chronic pain Status: Acute Current Visit: Yes Hospitalist: Subjective Interval history: Patient feels a lot better today. His nausea and pain are under better control. He is still not eating much but he states he is drinking plenty of water. He has no complaints of shortness of breath today and that feels much better to him. Exam - Constitutional Vitals: Period Temp Pulse Resp BP Sys/Maloney Pulse Ox Last 24 Hr 97.3 F-98.3 F 73-84 16-20 109-143/42-68 91-98 Exam: 71WM, mild distress due to SOB, alert and oriented chest w mild exp wheeze but improved aeration from yesterday cv rrr abd obese nt ext no edema Results - Labs CBC & BMP: 11/08/16 08:51 11/08/16 04:32 Lab Results: I have reviewed the past 24 hour labs - Diagnostic Findings Procedure: Chest x-ray: report reviewed by me (Little overall change in the chest has occurred. Scattered bilateral airspace opacities remain present)
[2016-11-08] MEDS: CLORAZEPATE 3.75 MG TABLET PO PRN ×2 (11:27→21:22)
--- NOTE | 2016-11-08 12:09 | Nephrology Progress Note ---
Nephrology - PN: Subj Interval history: He states his breathing is "a little better". He did not complain of nausea this morning. Exam (PN)-Nephrology - Vital Signs Vital signs: Period Temp Pulse Resp BP Sys/Maloney Pulse Ox Last 24 Hr 97.3 F-98.3 F 74-84 16-20 109-143/42-65 90-98 Exam: Gen.: Alert and oriented x3. ENT: Pupils equal round reactive to light. EOMs intact. Mucous membranes moist. Neck: Supple. No JVD or bruit. Cardiovascular: Regular rate and rhythm. No murmur rub or gallop Lungs: No rales or wheezes Abdomen: Soft. Nontender. Positive bowel sounds. No organomegaly Extremities: No edema - Lab 11/08/16 08:51 11/08/16 04:32 Most recent lab results Calcium 7.9 MG/DL (8.5-10.1) L 11/08/16 04:32 Magnesium 3.2 MG/DL (1.8-2.4) H 11/08/16 08:51 Assessment and Plan (1) Chronic kidney disease, stage IV (severe) Status: Chronic Assessment and plan: 71-year-old man admitted with: * CRF stage IV. Baseline creatinine upper threes * ARF on CRF. Creatinine is risen from 4.9-6.6 since I last saw him. Diuretic was increased over the weekend. His renal function has worsened with prior attempts at diuresis also. I believe most of his wheezing is due to lung disease rather than volume overload. Lasix will be decreased to 40 mg daily. I discussed this rationale with the patient. Also discussed with Dr. Mascorro * Diastolic CHF. His weight is variable but has decreased with diuresis * COPD. Wheezes improved today * Pulmonary hypertension * Prosthetic aortic valve * Diabetes mellitus * Hypertension * Anemia. Posttransfusion Current Visit: Yes (2) Diastolic CHF Status: Acute Current Visit: Yes Qualifiers: Congestive heart failure chronicity: acute on chronic Qualified Code(s): I50.33 - Acute on chronic diastolic (congestive) heart failure (3) Pulmonary edema Status: Acute Current Visit: Yes (4) Chronic obstructive pulmonary disease Status: Acute Current Visit: Yes Qualifiers: COPD type: unspecified COPD Qualified Code(s): J44.9 - Chronic obstructive pulmonary disease, unspecified (5) Diabetes mellitus Status: Chronic Current Visit: Yes Qualifiers: Diabetes mellitus type: type 2 Diabetes mellitus complication status: with kidney complications Diabetes mellitus complication detail: with chronic kidney disease Diabetes mellitus jail insulin use: with jail use Chronic kidney disease stage: stage 4 (severe) Qualified Code(s): E11.22 - Type 2 diabetes mellitus with diabetic chronic kidney disease; N18.4 - Chronic kidney disease, stage 4 (severe); Z79.4 - [facility] (current) use of insulin (6) Hypertension Status: Chronic Current Visit: Yes Qualifiers: Hypertension type: essential hypertension Qualified Code(s): I10 - Essential (primary) hypertension
--- NOTE | 2016-11-08 12:27 | Cardiology Progress Note ---
Assessment and Plan (1) Hypertension Status: Chronic Current Visit: Yes Qualifiers: Hypertension type: essential hypertension Qualified Code(s): I10 - Essential (primary) hypertension (2) Anemia Status: Chronic Current Visit: No (3) Renal failure Status: Chronic Current Visit: No Qualifiers: Renal failure chronicity: chronic (4) Acute exacerbation of chronic obstructive airways disease Status: Acute Current Visit: No (5) Paroxysmal atrial fibrillation Status: Chronic Assessment and plan: Patient is in sinus rhythm today. He has first-degree AV block on telemetry. Apparently he had Mobitz type I AV block is not present at this time. Repeat an ECG tomorrow Current Visit: Yes (6) S/P AVR (aortic valve replacement) Status: Chronic Current Visit: Yes (7) CVA (cerebral vascular accident) Status: Acute Assessment and plan: Patient is extremely high risk for stroke however he also has very significant anemia. Very difficult situation Current Visit: Yes Qualifiers: CVA mechanism: embolism (8) Pulmonary hypertension Status: Acute Assessment and plan: RVSP estimated at 79mmHg plus the right atrial pressure Current Visit: Yes Cardiology - PN: Subj Interval history: Mr. Acosta is lying her head of bed up on approximately 10 today. I do not hear wheezing today like he was yesterday. He denies any symptoms at this time. This gentleman has a grade 3 diastolic dysfunction and pulmonary hypertension status post aortic valve replacement and revascularization. He has been on amiodarone for some time that may be playing a role in his lung disease. He is also on hydroxychloroquine. I do not see that his chest x-ray has changed much. There is an interstitial process that may be edema but there also may be underlying tissue changes. This appears to be more chronic. Medications specifically amiodarone could be playing a role. From a cardiac standpoint the most helpful changes to any therapy at this time would be to increase his beta-jim and try to slow his heart rate. He is not wheezing today I think he is on a dose of beta-jim was low enough now not contribute significantly to bronchospasm. Consider high-resolution CT of the chest as well. This could provide useful information for his pulmonary hypertension and also to help delineate possibility of pulmonary involvement with amiodarone. Exam (Progress Note) - Constitutional Vitals: Period Temp Pulse Resp BP Sys/Maloney Pulse Ox Last 24 Hr 97.3 F-98.3 F 74-84 16-20 109-143/42-65 90-98 General appearance: morbidly obese - Head Head exam: Present: normal inspection - Eye Pupils: Present: TAMIA - Respiratory Respiratory exam: Present: clear to auscultation bilaterally (No wheezing today) - Cardiovascular Cardiovascular exam: Present: regular rate and rhythm (Murmur of aortic bioprosthesis) - GI/Abdominal GI/Abdominal exam: Present: normal bowel sounds - Extremities Exam Extremities exam: Absent: edema - Neurological Exam Neurological exam: Present: alert, oriented X3 - Psychiatric Psychiatric exam: Present: normal affect, depressed - Skin Skin exam: Present: normal color, warm, dry Result/EKG - Labs CBC & BMP: 11/08/16 08:51 11/08/16 04:32 Labs: Laboratory Results - last 24 hr 11/07/16 11/07/16 11/08/16 15:45 19:29 04:32 WBC RBC Hgb Hct MCV MCH MCHC RDW Plt Count MPV Neut % (Auto) Lymph % (Auto) Parke % (Auto) Eos % (Auto) Baso % (Auto) Neut # (Auto) Lymph # (Auto) Parke # (Auto) Eos # (Auto) Baso # (Auto) Immature Gran % Nucleated RBC % Immature Gran # Nucleated RBCs # Sodium 134 L Potassium 4.7 Chloride 99 Carbon Dioxide 20 L Anion Gap 19.7 H BUN 63 H Creatinine 6.60 H GFR Calculation 11 BUN/Creatinine Ratio 9.00 Glucose 151 H POC Glucose 243 H 219 H Calculated Osmolality 288.2 Calcium 7.9 L Magnesium B-Natriuretic Peptide 11/08/16 11/08/16 11/08/16 07:09 08:51 08:51 WBC 7.0 RBC 3.53 L Hgb 9.2 L Hct 28.6 L MCV 81.0 L MCH 26 L MCHC 32.2 RDW 16.4 Plt Count 210 MPV 10.4 Neut % (Auto) 78.4 H Lymph % (Auto) 11.0 L Parke % (Auto) 8.8 Eos % (Auto) 0.4 Baso % (Auto) 0.1 Neut # (Auto) 5.5 Lymph # (Auto) 0.8 L Parke # (Auto) 0.6 Eos # (Auto) 0.0 Baso # (Auto) 0.0 Immature Gran % 1.3 Nucleated RBC % 0.0 Immature Gran # 0.09 Nucleated RBCs # 0.00 Sodium Potassium Chloride Carbon Dioxide Anion Gap BUN Creatinine GFR Calculation BUN/Creatinine Ratio Glucose POC Glucose 151 H Calculated Osmolality Calcium Magnesium 3.2 H B-Natriuretic Peptide 11/08/16 11/08/16 08:51 11:20 WBC RBC Hgb Hct MCV MCH MCHC RDW Plt Count MPV Neut % (Auto) Lymph % (Auto) Parke % (Auto) Eos % (Auto) Baso % (Auto) Neut # (Auto) Lymph # (Auto) Parke # (Auto) Eos # (Auto) Baso # (Auto) Immature Gran % Nucleated RBC % Immature Gran # Nucleated RBCs # Sodium Potassium Chloride Carbon Dioxide Anion Gap BUN Creatinine GFR Calculation BUN/Creatinine Ratio Glucose POC Glucose 170 H Calculated Osmolality Calcium Magnesium B-Natriuretic Peptide 625 H
[2016-11-08] MEDS: ONDANSETRON 4 MG/2 ML VIAL IV PRN ×2 (15:06→19:58)
[2016-11-09] MEDS: ALBUTEROL 2.5 MG/3 ML NEB RESP TX SCH ×4 (01:06→18:59)
[2016-11-09] MEDS: MORPHINE 2 MG/1 ML SYRINGE IV PRN (01:44)
[2016-11-09 05:19] LABS: Basophils % 0.1 % (0.0-0.8); Hematocrit 27.5 VOL% (42.0-52.0); Hemoglobin 8.9 GM/DL (14.0-18.0); Immature Granulocytes % 1.3 %; Immature Granulocytes Absolute 0.14 #; Lymphocytes # 0.7 10*3/uL (1.4-4.0); Lymphocytes % 6.6 % (21.2-54.2); Mean Corpuscular HGB Conc 32.4 GM/DL (32-36); Mean Corpuscular Hemoglobin 26 PG (27-34); Mean Corpuscular Volume 81.1 FL (87-102); Mean Platelet Volume 10.2 FL (9.6-12.0); Monocytes # 0.6 10*3/uL (0.11-0.8); Monocytes % 5.6 % (1.7-12.7); Neutrophils # 9.4 10*3/uL (1.4-7.4); Neutrophils % 86.4 % (38.7-73.9); Platelet Count 262 T/CUMM (130-400); Red Blood Count 3.39 MC/CUMM (3.8-5.5); Red Cell Distribution Width 16.3 % (9.3-17.3); White Blood Count 10.8 T/CUMM (4-12)
[2016-11-09 05:45] LABS: Magnesium 3.2 MG/DL (1.8-2.4); Osmolality,Calculated 290.5 MOS/KG (273-304); Potassium 4.9 MMOL/L (3.5-5.1)
[2016-11-09] MEDS: ONDANSETRON 4 MG/2 ML VIAL IV PRN (08:15)
--- NOTE | 2016-11-09 09:54 | Pulmonology Progress Note ---
Pulmonary - PN: Subj Interval history: This is a 71-year-old white male. I saw him in pulmonary consultation 2016. My impressions were. 1. Acute congestive heart failure. 2. Aortic valve replacement 2012 3. COPD. Past history tobacco abuse 3.1 Anemia. Folic acid level is low and vitamin B12 level is normal. #4 chronic renal failure 5. Low calcium and low albumin. 6. Insulin-dependent diabetes mellitus with a history of diabetic ketoacidosis 7. Hyperlipidemia 8. History of atrial fib 9. Symptoms suggestive of obstructive sleep apnea 10. Mild pulmonary hypertension. Etiology undetermined. Note elevated left ventricular filling blood pressures on echocardiogram. Previous echocardiogram was obtained when the patient was in congestive heart failure. Obstructive sleep apnea could be a contributory factor. 11. Past history of deep venous thrombophlebitis and pulmonary emboli. No evidence of either found during initial workup this admission 12. See past history 11/01/2016. Chest x-rays are pending. I have ordered the EPA and lateral for today and tomorrow. Patient still has shortness of breath and he complains of chest pain with exertion. To me this chest pain is worrisome for cardiac angina. Pulmonary hypertension can sometimes cause similar pain. Last admission the patient's pulmonary artery pressures were 65-70 mmHg. This echocardiogram was obtained while the patient was in congestive heart failure. I am going to order a repeat echocardiogram for comparison pulmonary artery pressures. Patient's on Procardia XL 60 which is a good medicine for pulmonary hypertension. We could go higher. We could add Revatio if it appears safe from a cardiology standpoint. Occasionally Apresoline works for pulmonary hypertension. Apresoline could be added if needed to help with cardiac output. Patient's H&H is 7.6/23.9. He is low folic acid. His B12 is normal. He also is low on iron. I have started replacement with iron and also folic acid. His vitamin D level is low and vitamin D replacement has been started. I am going to transfuse the patient with a unit of blood today and if he tolerates this well will probably should transfuse another unit tomorrow. This will certainly improve his oxygen carrying capacity. BNP is pending. Note sedimentation rate is 96. Doppler venograms were negative for deep venous thrombophlebitis. Ventilation perfusion lung scan showed no perfusion defects. 11/02/2016. Today's x-ray shows mild residual congestive heart failure. BNP remains elevated at 556. Noted creatinine is 4.60 with a BUN of 52 and this may falsely elevate his BNP. Patient's vitamin D is low and will order replacement. Folic acid is also low. B12 is in the normal range of 438. Posttransfusion H&H is 8.4/26.9. Iron saturation is also low. Iron has not been started. Patient has some persistent nausea. Nares are positive for MRSA. Repeat echocardiogram done 10/29/2016 shows ejection fraction 65% with grade 3 diastolic dysfunction and moderate biatrial enlargement. There is mild atrial regurgitation. Trace of aortic insufficiency. Pulmonary artery pressures are estimated to be 79 mmHg. Patient's on Procardia XL 60 and I will increase this to 120 mg daily. We did consider Revatio if cardiology feels this is safe. Would start with 20 mg every 8 hours. Alternatively we could try Apresoline 25 3 times daily which occasionally helps and may help with the patient's cardiac output. Will ask for Dr. Bueno's comment. 11/03/2016. Today's chest x-ray continues to show mild pulmonary edema. 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 CBC is stable. The rest of today's lab is pending. Dr. Lydia Ca sleep medicine note has been reviewed and I agree with his plans. Patient's was apparently asleep on the bed. She moves her foot but she never turned over or participate in our conversation today. Santosh Courtney nurse practitioner was present. Patient's had some slight fever related to blood transfusions. I do not see anything so far that looks like amiodarone along. Amiodarone was only recently added. Procardia XL was increased to 60 mg twice a day on 11/02/2016 an attempt to treat the patient's pulmonary hypertension 11/04/2016. This patient had altered mental status and had a normal CT of the head yesterday. I reviewed his medicines from last night. He received [place] 10. 4 mg of morphine and transfers seen. He is a little slow on the mental uptake this morning and I suspect the answer lies in his medicines. This patient has had heart failure that has not quite resolved. His chest x-ray has not been done today. See my note from 11/03/2016. I reviewed the number of old x-rays at his baseline x-ray should looked like x-rays that were done on 2014, 01/05/2016 and on 09/26/2016. The changes he has now are secondary to none resolved pulmonary edema. These are exactly the same changes that he has had before when he has pulmonary edema. The only outlier would be a reaction to amiodarone but he is only been on this for short period of time BNP is elevated at 307. Patient creatinine remains elevated 490 with a BUN of 52 and normal electrolytes. H&H a little bit better at 9.9/31.2. White count 6200 and platelets are 182,000. Will continue to follow his chest x-ray and lab. 11/08/2016. Chest x-ray is essentially unchanged showing increased interstitial markings in all 5 lobes of the lung. Creatinine 6.60 with a BUN of 63. Sodium 134. Potassium 4.7. Magnesium is 3.2. Natruretic peptide is 625. H&H is 9.2/ 28.6. White count is 7078 segs 11 lymphs and 9 mono s. There are no new cultures. Patient is much more alert and oriented today. He says he is breathing much better. Notes from Dr. Valorie Mascorro and Dr. Eliud Brito's have been reviewed 11/09/2016. Dr. Valorie Mascorro and I have discussed the case. We both are suspicious that we are dealing with amiodarone alone. Amiodarone was started this admission and the reconciliation by the splunk consultant implied that the patient was already on the medicine. The patient is a terrible historian. His is asleep on the cot next to him and is not much help. He says he has been on amiodarone for years. Will stop amiodarone. I am patient change in the patient's prednisone to Solu-Medrol 40 IV push every 8 hours and will monitor his chest x-ray is O2 sats. The patient is on Plaquenil. He has no idea why he takes this medicine. Creatinine is now 7.10 with a BUN of 76. Sodium is 132. Potassium 4.9. White count is 10,886 segs 6.6 lymphs and 5.5 monocytes. There are no eosinophils. H&H is 8.9 with 27.5. Physical exam. Vital signs. See below. Face is symmetrical. Lips and tongue are normal Neck. Symmetrical no meningismus. Lymphatics. No submandibular cervical supraclavicular or epitrochlear adenopathy. Chest is fairly clear Heart lateral PMI Abdomen. Nontender. Positive bowel sounds Lower extremities. Skin no evidence of chronic venous stasis. No edema. Neurologic. Cranial nerves are intact. Long track motor functions intact. Gait was not tested. Psychiatric. Oriented 3. Very poor historian. Concentration is poor. Patient appears to be low on information. The remainder the physical exam is noncontributory. Plan. 11/01/2016. See my note above. See numbers 1 through 9 below 1. Diuresis. Watch BMP. 2. Replace folic acid 3. Replace iron 4. Blood transfusion 5. Deep venous thrombophlebitis prevention protocol 6. Replace vitamin D 7. Follow-up chest x-ray #8. Repeat echocardiogram. Consider increase of Procardia. Consider Revatio say from a cardiology standpoint. An outlier for pulmonary hypertension would be Apresoline. 9. 11/02/2016. See today's note above. Increase Procardia XL 60 to twice daily . Last Dr. Moseley his opinion concerning Revatio and/or Apresoline 10. 11/03/2016. See today's note above. 11. 11/04/2016. See today's note above. Considering cutting back significantly on this patient pain medicines. I suspect these are the cause of his altered mental status. We will follow-up his chest x-ray and lab. Dr. Radha mcadams will see the patient this week 12. 11/08/2016. See today's note above. 13. 11/09/2016. See today's note above. DC amiodarone. Change prednisone to Solu-Medrol. Dr. Mascorro and I have reviewed the case and coordinated our care Exam (Progress Note) - Constitutional Vitals: Period Temp Pulse Resp BP Sys/Maloney Pulse Ox Last 24 Hr 97.3 F-98.1 F 68-88 16-20 113-138/48-65 84-99 Results - Labs CBC & BMP: 11/09/16 04:29 11/09/16 04:29
--- NOTE | 2016-11-09 09:54 | Hospitalist Progress Note ---
Assessment and Plan - Time spent with patient Time spent with patient: Less than 30 minutes (1) CVA (cerebral vascular accident) Status: Acute Assessment and plan: 71WM w history of AVR in 2012, COPD, anemia, CRF, DM, HL admitted by hospitalist w paroxysmal afib and acute CHF exacerbation. pt is being followed by cardiology, pulmonology, and nephrology. dr spaulding to see and examine pt and further recommendations to follow. DM--blood sugars doing ok right now. he is on SSI. steroids were started yesterday so will cont to monitor HTN/afib/sp AVR/CHF--cardiology is managing. pt is on amiodorone, ASA, and low dose BB. he is in NSR and has occasional Mobitz 1 second-degree AV block that is asymptomatic. hydralazine was increased yesterday for elevated BP and this is improved this am. pt is currently on heparin drip. will need to be placed on po anticoagulation at some point if cardiology agrees. cont oxygen. he is requiring consant oxygen at 3L NC now. sats from 88-93. pt is undergoing diuresis for chf and this is effecting his kidney function. creatinine up to 5.8 but he clearly needs diuresis. will let cardiology and nephrology manage this balance. BNP is 382 which is better than admission of 495. constipation--resolved. cont laxatives prn anemia--pt did receive 1 unit of blood on 11/02. HH stable at 03/10 acute on chronic kidney disease--creatinine conts to rise. it is 5.8 today. nephrology is following. pt is still undergoing diuresis chronic pain--pt is on norco 10 q8h prn 11/08/2016 patient feels much better today. He is breathing much easier and has nausea and pain have resolved. His blood sugars are running a little higher today but he is on steroids. We will continue to monitor this using sliding scale insulin. Cardiology is following as well. He is on amiodarone, aspirin, and low-dose beta-jim. He is in normal sinus rhythm at this time. His hydralazine was increased and his blood pressures are much better. Patient has a BNP of 625 today. Patient is undergoing diuresis for his CHF and he is on 80 mg daily. His creatinine did bump up to 6.6. Nephrology and cardiology are managing this. This is a difficult balance between his heart failure and kidney function. Dr. Spaulding to see and examined patient and further recommendations to follow. 11/09/2016 patient sitting on the edge of the bed with some mild shortness of breath. He has no expiratory wheezing. He is still having some nausea. He does have Zofran and Phenergan ordered for this. Dr. Spaulding is following his kidney function. He did decrease his Lasix Lasix to 40 mg daily yesterday. Patient's creatinine has jumped up to 7.1 today. Nursing states that there is discussion of questionable dialysis initiation. Patient's blood pressures and heart rates are good today. Cardiology is following him as well. They did increase his beta-jim yesterday to slow the heart rate down. This seems to have helped. Patient's sodium has dropped a little bit so will check w dr spaulding on this. They mentioned whether a CT of the chest would help to evaluate his pulmonary hypertension. Will let Dr. Brizuela decide if this will be useful. Dr. Spaulding to see and examine patient and further recommendations to follow. Current Visit: Yes (2) S/P AVR (aortic valve replacement) Status: Chronic Current Visit: Yes (3) Chronic obstructive pulmonary disease Status: Acute Current Visit: Yes Qualifiers: Qualified Code(s): J44.9 - Chronic obstructive pulmonary disease, unspecified (4) Diabetes mellitus Status: Chronic Current Visit: Yes Qualifiers: Qualified Code(s): E11.22 - Type 2 diabetes mellitus with diabetic chronic kidney disease; N18.4 - Chronic kidney disease, stage 4 (severe); Z79.4 - correction (current) use of insulin (5) Hypertension Status: Chronic Current Visit: Yes Qualifiers: Qualified Code(s): I10 - Essential (primary) hypertension (6) Dyslipidemia Status: Chronic Current Visit: No (7) Chronic kidney disease, stage IV (severe) Status: Chronic Current Visit: Yes (8) Diastolic CHF Status: Acute Current Visit: Yes Qualifiers: Qualified Code(s): I50.33 - Acute on chronic diastolic (congestive) heart failure (9) Pulmonary edema Status: Acute Current Visit: Yes (10) Anemia Status: Chronic Current Visit: Yes (11) Altered mental status Status: Acute Current Visit: Yes (12) Chronic pain Status: Acute Current Visit: Yes Hospitalist: Subjective Interval history: Patient is not feeling as well as he did yesterday. He is still having bouts of nausea. He states he has not taken his pain pills on an empty stomach. He still has some shortness of breath but he is not audibly wheezing today. He continues to have no appetite but states he is drinking some water. Exam - Constitutional Vitals: Period Temp Pulse Resp BP Sys/Maloney Pulse Ox Last 24 Hr 97.3 F-98.1 F 68-88 16-20 113-138/48-65 84-99 Exam: 71WM, mild distress due to SOB, alert and oriented chest w mild exp wheeze but improved aeration from yesterday cv rrr abd obese nt ext no edema Results - Labs CBC & BMP: 11/09/16 04:29 11/09/16 04:29 Lab Results: I have reviewed the past 24 hour labs
[2016-11-09] MEDS: METOPROLOL TARTRATE 25 MG TABLET PO SCH ×2 (10:20→21:15)
[2016-11-09] MEDS: CHOLECALCIFEROL 1,000 UNIT TABLET PO SCH (10:20)
[2016-11-09] MEDS: FOLIC ACID 0.4 MG TABLET PO SCH (10:20)
[2016-11-09] MEDS: ALLOPURINOL 300 MG TABLET PO SCH (10:20)
[2016-11-09] MEDS: PANTOPRAZOLE 40 MG TABLET PO SCH ×2 (10:21→17:11)
[2016-11-09] MEDS: FUROSEMIDE 40 MG TABLET PO SCH (10:21)
[2016-11-09] MEDS: ATORVASTATIN 40 MG TABLET PO SCH (10:21)
[2016-11-09] MEDS: DOCUSATE SODIUM 100 MG CAPSULE PO SCH ×2 (10:21→21:15)
[2016-11-09] MEDS: ASPIRIN EC 81 MG TABLET PO SCH (10:21)
[2016-11-09] MEDS: MAGNESIUM OXIDE 400 MG TABLET PO SCH (10:22)
[2016-11-09] MEDS: MUPIROCIN 2% OINT 22 GM TUBE TOP SCH ×2 (10:25→23:11)
[2016-11-09] MEDS: methylPREDNISolone SOD SUC 40 MG/1 ML VIAL IV SCH ×2 (10:25→17:11)
[2016-11-09] MEDS: HEPARIN 5,000 UNIT/1 ML VIAL SUBCUT SCH ×2 (10:26→21:14)
[2016-11-09] MEDS: INSULIN LISPRO 100 UNIT/ML SUBCUT SCH ×4 (11:10→21:22)
--- NOTE | 2016-11-09 14:02 | Ultrasound Report ---
History: Nausea Date: 11/09/2016 Study: Gallbladder ultrasound Comparison exam: No previous gallbladder ultrasound currently available Real-time ultrasound images are captured and archived. There are numerous mobile highly echogenic foci with posterior acoustic shadowing in the lumen of the gallbladder compatible with gallstones. There is a positive sonographic Saarvia sign. The gallbladder wall measures mildly thickened at 3.5 mm. The common bile duct measures 5 mm diameter. The liver measures 15.7 cm length and is without focal mass lesion. There is hepatopedal flow in the portal vein. The visualized pancreas is unremarkable, though portions of the head and tail are obscured by bowel gas. The right kidney measures 9.6 cm length and appears normal aside from a 7 mm simple cyst at its mid aspect. Impression: Cholelithiasis, gallbladder wall thickening, and positive sonographic Saravia sign, suggesting acute cholecystitis. PROCEDURE INTERPRETED AT [facility] DEPARTMENT OF RADIOLOGY Final Report Signed by: Dr. Aspen Champion
--- NOTE | 2016-11-09 15:10 | Cardiology Progress Note ---
<Keila Means - Last Filed: 11/09/16 15:07> Assessment and Plan (1) Chronic kidney disease, stage IV (severe) Status: Chronic Assessment and plan: See plan of care listed below. Current Visit: Yes (2) Diabetes mellitus Status: Chronic Assessment and plan: See plan of care listed below. Current Visit: Yes Qualifiers: Diabetes mellitus type: type 2 Diabetes mellitus complication status: with kidney complications Diabetes mellitus complication detail: with chronic kidney disease Diabetes mellitus intermediate teacher insulin use: with chcf use Chronic kidney disease stage: stage 4 (severe) Qualified Code(s): E11.22 - Type 2 diabetes mellitus with diabetic chronic kidney disease; N18.4 - Chronic kidney disease, stage 4 (severe); Z79.4 - continuous churn buttermaker (current) use of insulin (3) Hypertension Status: Chronic Assessment and plan: See plan of care listed below. Current Visit: Yes Qualifiers: Hypertension type: essential hypertension Qualified Code(s): I10 - Essential (primary) hypertension (4) Dyslipidemia Status: Chronic Assessment and plan: See plan of care listed below. Current Visit: No (5) Anemia Status: Chronic Assessment and plan: See plan of care listed below. Current Visit: Yes (6) Paroxysmal atrial fibrillation Status: Chronic Assessment and plan: See plan of care listed below. Current Visit: Yes (7) Status post aortic valve replacement with bioprosthetic valve Status: Chronic Assessment and plan: See plan of care listed below. Current Visit: Yes (8) Acute cholecystitis Status: Acute Assessment and plan: See plan of care listed below. Current Visit: Yes (9) Acute exacerbation of chronic obstructive airways disease Status: Acute Assessment and plan: See plan of care listed below. Current Visit: Yes Cardiology - PN: Subj Interval history: Mule Rider: Dr. Franklin PCP: Dr. Min Summary - Mr. Acosta is a 71-year-old male with a past medical history of diabetes, hypertension, diastolic heart failure, paroxysmal atrial fibrillation (He had been on Coumadin in the past but it was stopped at the OR because of noncompliance and difficulty keeping the pro time therapeutic), chronic renal insufficiency, aortic stenosis (now status post tissue aortic valve replacement), history of pulmonary embolism, untreated obstructive sleep apnea and GERD. Patient was admitted to [facility] with recurrent diastolic heart failure. Echo Doppler done September 21, 2016 showed ejection fraction of 60% with grade 3 diastolic dysfunction, moderate dilated left atrium, mitral annular calcification, the aortic tissue valve was sclerotic but open widely. The right ventricle is dilated severe TR PA pressure 65-70 with no effusion. Patient has been anemic throughout this admission. Suspect this is anemia of chronic disease as patient does have history of chronic renal failure. Currently being managed by Dr. Pipo Spaulding. Cardiology was consulted for further assistance in the management of his diastolic heart failure. 11/09/16 Update: Patient was seen and examined on the telemetry unit. He continues to complain of nausea. Also continues to be mildly short of breath. Wheezing noted. Medications specifically amiodarone could be playing a role. Dr. Brizuela discontinued patient's amiodarone yesterday. Creatinine is now 7.10 with a BUN of 76. Sodium is 132. Potassium 4.9. H&H 8.9 and 27.5. Lasix was decreased to [address] Pipo Spaulding is following. Vital signs are stable. Assessment/plan: 1. ACUTE EXACERBATION OF CHRONIC OBSTRUCTIVE AIRWAYS DISEASE - Continues to wheeze today. Continue breathing treatments and steroid therapy. Management per Dr. Brizuela. Agree with discontinuation of amiodarone. 2. PULMONARY HYPERTENSION - RVSP estimated at 79mmHg plus the right atrial pressure. Continue current plan of care. 3. HYPERTENSION - Well controlled. Continue current plan of care. 4. ANEMIA - Likely anemia of chronic disease as patient has chronic renal disease. No overt bleeding noted. Continue to monitor closely with Daily CBC. 5. PAROXYSMAL ATRIAL FIBRILLATION - Currently normal sinus rhythm. He has first-degree AV block on telemetry. Apparently he had Mobitz type I AV block is not present at this time. EKG in a.m. 6. CHRONIC RENAL FAILURE - Management per Dr. Pipo Spaulding. Daily BMP. 7. S/P AVR - Stable. Tissue aortic valve. Continue current plan of care. 8. HISTORY OF CVA - Patient is extremely high risk for stroke however he also has very significant anemia and is not a candidate at this time. 9. ACUTE CHOLECYSTITIS- Defer management to hospital medicine. Exam (Progress Note) - Constitutional Vitals: Period Temp Pulse Resp BP Sys/Maloney Pulse Ox Last 24 Hr 95.1 F-98.1 F 68-94 16-20 113-138/51-65 84-99 Exam: General appearance: no acute distress, morbidly obese - Head Head exam: Present: normal inspection, normocephalic, atraumatic - Respiratory Respiratory exam: Present: Wheezing. Absent: accessory muscle use, chest wall tenderness, rales and wheezing - Cardiovascular Cardiovascular exam: Present: regular rate and rhythm, systolic murmur. Absent : gallop, rubs, tachycardia - GI/Abdominal GI/Abdominal exam: Present: normal bowel sounds, soft and nontender. Absent: firm, guarding, tenderness - Extremities Exam Extremities exam: Present: normal inspection, normal capillary refill, other ( Normal lower extremity pulses.). Absent: calf tenderness, edema - Neurological Exam Neurological exam: Present: alert, oriented X3 - Psychiatric Psychiatric exam: Present: normal affect, normal mood - Skin Skin exam: Present: normal color, warm, dry Result/EKG - Labs CBC & BMP: 11/09/16 04:29 11/09/16 04:29 Labs: Laboratory Results - last 24 hr 11/08/16 11/08/16 11/09/16 16:01 19:39 04:29 WBC 10.8 D RBC 3.39 L Hgb 8.9 L Hct 27.5 L MCV 81.1 L MCH 26 L MCHC 32.4 RDW 16.3 Plt Count 262 D MPV 10.2 Neut % (Auto) 86.4 H Lymph % (Auto) 6.6 L [place] % (Auto) 5.6 Eos % (Auto) 0.0 Baso % (Auto) 0.1 Neut # (Auto) 9.4 H Lymph # (Auto) 0.7 L [place] # (Auto) 0.6 Eos # (Auto) 0.0 Baso # (Auto) 0.0 Immature Gran % 1.3 Nucleated RBC % 0.0 Immature Gran # 0.14 Nucleated RBCs # 0.00 Sodium Potassium Chloride Carbon Dioxide Anion Gap BUN Creatinine GFR Calculation BUN/Creatinine Ratio Glucose POC Glucose 232 H 206 H Calculated Osmolality Calcium Magnesium 11/09/16 11/09/16 11/09/16 04:29 07:39 11:27 WBC RBC Hgb Hct MCV MCH MCHC RDW Plt Count MPV Neut % (Auto) Lymph % (Auto) [place] % (Auto) Eos % (Auto) Baso % (Auto) Neut # (Auto) Lymph # (Auto) [place] # (Auto) Eos # (Auto) Baso # (Auto) Immature Gran % Nucleated RBC % Immature Gran # Nucleated RBCs # Sodium 132 L Potassium 4.9 Chloride 98 Carbon Dioxide 22 Anion Gap 16.9 H BUN 76 H D Creatinine 7.10 H GFR Calculation 10 BUN/Creatinine Ratio 10.00 Glucose 173 H POC Glucose 185 H 192 H Calculated Osmolality 290.5 Calcium 8.0 L Magnesium 3.2 H <Valorie Martell - Last Filed: 11/09/16 15:42> Assessment and Plan (1) Hypertension Status: Chronic Current Visit: Yes Qualifiers: Hypertension type: essential hypertension Qualified Code(s): I10 - Essential (primary) hypertension (2) Anemia Status: Chronic Current Visit: No (3) Renal failure Status: Chronic Current Visit: No Qualifiers: Renal failure chronicity: chronic (4) Acute exacerbation of chronic obstructive airways disease Status: Acute Current Visit: No (5) Paroxysmal atrial fibrillation Status: Chronic Assessment and plan: Patient is very high risk for ischemic events he has had a previous stroke is also extremely high risk for bleeding with anemia and history of labile INRs. If atrial fibrillation returns I would suspect he would be best served with 2-1/ 2 mg Eliquis twice daily watch cautiously. Current Visit: Yes (6) S/P AVR (aortic valve replacement) Status: Chronic Current Visit: Yes (7) CVA (cerebral vascular accident) Status: Acute Current Visit: Yes Qualifiers: CVA mechanism: embolism (8) Pulmonary hypertension Status: Acute Current Visit: Yes Cardiology - PN: Subj Interval history: Despite worsening renal numbers, the patient actually looks better his nausea is better. I discussed with Dr. Spaulding and with Dr. Derick Brizuela. I agree with discontinuation of his amiodarone. The patient is not real sure how long he has been on it he cannot specifically say how long but he thinks it has been greater than 1 year. Because of his anemia and previous labile INRs he is not a very good anticoagulation candidate in general but certainly not a Coumadin candidate. I suspect he will develop a feel would likely with RVR as we discontinue the amiodarone but will take some time for this to wear off. We will adjust and address as it arises. His gallbladder ultrasound was noted. Exam (Progress Note) - Constitutional Vitals: Period Temp Pulse Resp BP Sys/Maloney Pulse Ox Last 24 Hr 95.1 F-98.1 F 72-94 16-20 113-138/51-65 84-99 Exam: He is wheezing pretty tight today prolonged expiratory phase he has got an S4 gallop. Abdominal exam was soft with very minimal tenderness in the right upper quadrant Result/EKG - Labs CBC & BMP: 11/09/16 04:29 11/09/16 04:29 Labs: Laboratory Results - last 24 hr 11/08/16 11/08/16 11/09/16 16:01 19:39 04:29 WBC 10.8 D RBC 3.39 L Hgb 8.9 L Hct 27.5 L MCV 81.1 L MCH 26 L MCHC 32.4 RDW 16.3 Plt Count 262 D MPV 10.2 Neut % (Auto) 86.4 H Lymph % (Auto) 6.6 L [place] % (Auto) 5.6 Eos % (Auto) 0.0 Baso % (Auto) 0.1 Neut # (Auto) 9.4 H Lymph # (Auto) 0.7 L [place] # (Auto) 0.6 Eos # (Auto) 0.0 Baso # (Auto) 0.0 Immature Gran % 1.3 Nucleated RBC % 0.0 Immature Gran # 0.14 Nucleated RBCs # 0.00 Sodium Potassium Chloride Carbon Dioxide Anion Gap BUN Creatinine GFR Calculation BUN/Creatinine Ratio Glucose POC Glucose 232 H 206 H Calculated Osmolality Calcium Magnesium 11/09/16 11/09/16 11/09/16 04:29 07:39 11:27 WBC RBC Hgb Hct MCV MCH MCHC RDW Plt Count MPV Neut % (Auto) Lymph % (Auto) [place] % (Auto) Eos % (Auto) Baso % (Auto) Neut # (Auto) Lymph # (Auto) [place] # (Auto) Eos # (Auto) Baso # (Auto) Immature Gran % Nucleated RBC % Immature Gran # Nucleated RBCs # Sodium 132 L Potassium 4.9 Chloride 98 Carbon Dioxide 22 Anion Gap 16.9 H BUN 76 H D Creatinine 7.10 H GFR Calculation 10 BUN/Creatinine Ratio 10.00 Glucose 173 H POC Glucose 185 H 192 H Calculated Osmolality 290.5 Calcium 8.0 L Magnesium 3.2 H
--- NOTE | 2016-11-09 19:30 | Nephrology Progress Note ---
Nephrology - PN: Subj Interval history: He denies orthopnea or PND. He has HALE with minimal exertion. Exam (PN)-Nephrology - Vital Signs Vital signs: Period Temp Pulse Resp BP Sys/Maloney Pulse Ox Last 24 Hr 95.1 F-98.9 F 72-120 16-20 113-138/45-65 84-99 Exam: Gen.: Alert and oriented x3. ENT: Pupils equal round reactive to light. EOMs intact. Mucous membranes moist. Neck: Supple. No JVD or bruit. Cardiovascular: Regular rate and rhythm. No murmur rub or gallop Lungs: Clear Abdomen: Soft. Nontender. Positive bowel sounds. No organomegaly Extremities: No edema - Lab 11/09/16 04:29 11/09/16 04:29 Most recent lab results Calcium 8.0 MG/DL (8.5-10.1) L 11/09/16 04:29 Magnesium 3.2 MG/DL (1.8-2.4) H 11/09/16 04:29 Assessment and Plan (1) Chronic kidney disease, stage IV (severe) Status: Chronic Assessment and plan: 71-year-old man admitted with: * CRF stage IV. Baseline creatinine upper threes * ARF on CRF. Creatinine is risen further despite decreasing diuretic. I have explained that he will require dialysis if his renal function does not improve very soon. He will be kept n.p.o. in case dialysis catheter needs to be placed tomorrow. Diuretic has been discontinued. I still think most of his shortness of breath is due to intrinsic lung disease. * Diastolic CHF. His weight is variable but has decreased with diuresis * COPD. No wheezing today * Pulmonary hypertension * Prosthetic aortic valve * Diabetes mellitus * Hypertension * Anemia. Posttransfusion Current Visit: Yes (2) Diastolic CHF Status: Acute Current Visit: Yes Qualifiers: Congestive heart failure chronicity: acute on chronic Qualified Code(s): I50.33 - Acute on chronic diastolic (congestive) heart failure (3) Pulmonary edema Status: Acute Current Visit: Yes (4) Chronic obstructive pulmonary disease Status: Acute Current Visit: Yes Qualifiers: COPD type: unspecified COPD Qualified Code(s): J44.9 - Chronic obstructive pulmonary disease, unspecified (5) Diabetes mellitus Status: Chronic Current Visit: Yes Qualifiers: Diabetes mellitus type: type 2 Diabetes mellitus complication status: with kidney complications Diabetes mellitus complication detail: with chronic kidney disease Diabetes mellitus terminal makeup operator insulin use: with terminal makeup operator use Chronic kidney disease stage: stage 4 (severe) Qualified Code(s): E11.22 - Type 2 diabetes mellitus with diabetic chronic kidney disease; N18.4 - Chronic kidney disease, stage 4 (severe); Z79.4 - [facility] (current) use of insulin (6) Hypertension Status: Chronic Current Visit: Yes Qualifiers: Hypertension type: essential hypertension Qualified Code(s): I10 - Essential (primary) hypertension
[2016-11-09] MEDS: CLORAZEPATE 3.75 MG TABLET PO PRN (21:23)
[2016-11-10] MEDS: ALBUTEROL 2.5 MG/3 ML NEB RESP TX SCH ×4 (00:21→20:31)
[2016-11-10] MEDS: methylPREDNISolone SOD SUC 40 MG/1 ML VIAL IV SCH ×3 (02:09→16:31)
[2016-11-10] MEDS: ONDANSETRON 4 MG/2 ML VIAL IV PRN ×3 (02:12→13:50)
[2016-11-10 04:38] LABS: Basophils % 0.1 % (0.0-0.8); Hematocrit 27.2 VOL% (42.0-52.0); Hemoglobin 8.8 GM/DL (14.0-18.0); Immature Granulocytes % 1.7 %; Immature Granulocytes Absolute 0.15 #; Lymphocytes # 0.5 10*3/uL (1.4-4.0); Lymphocytes % 5.7 % (21.2-54.2); Mean Corpuscular HGB Conc 32.4 GM/DL (32-36); Mean Corpuscular Hemoglobin 26 PG (27-34); Mean Platelet Volume 10.2 FL (9.6-12.0); Monocytes # 0.3 10*3/uL (0.11-0.8); Monocytes % 3.8 % (1.7-12.7); Neutrophils # 7.7 10*3/uL (1.4-7.4); Neutrophils % 88.7 % (38.7-73.9); Platelet Count 260 T/CUMM (130-400); Red Blood Count 3.36 MC/CUMM (3.8-5.5); Red Cell Distribution Width 16.1 % (9.3-17.3); White Blood Count 8.7 T/CUMM (4-12)
[2016-11-10 05:06] LABS: Calcium 8.3 MG/DL (8.5-10.1); Magnesium 3.1 MG/DL (1.8-2.4); Osmolality,Calculated 291.5 MOS/KG (273-304); Potassium 5.1 MMOL/L (3.5-5.1)
--- NOTE | 2016-11-10 09:43 | XRay Report ---
XR chest 2V Indication: Shortness of breath. Comparison: Chest x-ray 11/08/2016 Technique: PA and lateral chest x-ray was performed. Findings: Minimal interval improvement in bilateral airspace disease is demonstrated. Reticular interstitial opacities remain present bilaterally. Mild prominence of central vasculature is again demonstrated. Portal and a mild cardiomegaly and postoperative changes from prior sternotomy and valve replacement present. Bones and soft tissues are stable. Impression: 1. Interval partial clearing of the lung parenchyma suggests improving cardiogenic edema. 11/10/2016 9:40 AM PROCEDURE INTERPRETED AT [facility] DEPARTMENT OF RADIOLOGY Final Report Signed by: Dr. Pepito Santos
--- NOTE | 2016-11-10 09:43 | Cardiology Progress Note ---
<Keila Means - Last Filed: 11/10/16 09:31> Assessment and Plan (1) Acute exacerbation of chronic obstructive airways disease Status: Acute Assessment and plan: See plan of care listed below. Current Visit: Yes (2) Chronic kidney disease, stage IV (severe) Status: Chronic Assessment and plan: See plan of care listed below. Current Visit: Yes (3) Diabetes mellitus Status: Chronic Assessment and plan: See plan of care listed below. Current Visit: Yes Qualifiers: Diabetes mellitus type: type 2 Diabetes mellitus complication status: with kidney complications Diabetes mellitus complication detail: with chronic kidney disease Diabetes mellitus intermodal customer service insulin use: with intermodal customer service use Chronic kidney disease stage: stage 4 (severe) Qualified Code(s): E11.22 - Type 2 diabetes mellitus with diabetic chronic kidney disease; N18.4 - Chronic kidney disease, stage 4 (severe); Z79.4 - halfway (current) use of insulin (4) Hypertension Status: Chronic Assessment and plan: See plan of care listed below. Current Visit: Yes Qualifiers: Hypertension type: essential hypertension Qualified Code(s): I10 - Essential (primary) hypertension (5) Dyslipidemia Status: Chronic Assessment and plan: See plan of care listed below. Current Visit: No (6) Anemia Status: Chronic Assessment and plan: See plan of care listed below. Current Visit: Yes (7) Paroxysmal atrial fibrillation Status: Chronic Assessment and plan: See plan of care listed below. Current Visit: Yes (8) Status post aortic valve replacement with bioprosthetic valve Status: Chronic Assessment and plan: See plan of care listed below. Current Visit: Yes (9) Acute cholecystitis Status: Acute Assessment and plan: See plan of care listed below. Current Visit: Yes Cardiology - PN: Subj Interval history: Gun Stocker: Dr. Franklin PCP: Dr. Min Summary - Mr. Acosta is a 71-year-old male with a past medical history of diabetes, hypertension, diastolic heart failure, paroxysmal atrial fibrillation (He had been on Coumadin in the past but it was stopped at the [facility] because of noncompliance and difficulty keeping the pro time therapeutic), chronic renal insufficiency, aortic stenosis (now status post tissue aortic valve replacement), history of pulmonary embolism, untreated obstructive sleep apnea and GERD. Patient was admitted to [facility] with recurrent diastolic heart failure. Echo Doppler done September 21, 2016 showed ejection fraction of 60% with grade 3 diastolic dysfunction, moderate dilated left atrium, mitral annular calcification, the aortic tissue valve was sclerotic but open widely. The right ventricle is dilated severe TR PA pressure 65-70 with no effusion. Patient has been anemic throughout this admission. Suspect this is anemia of chronic disease as patient does have history of chronic renal failure. Currently being managed by Dr. Pipo Spaulding. Cardiology was consulted for further assistance in the management of his diastolic heart failure. 11/09/16 Update: Patient was seen and examined on the telemetry unit. He continues to complain of nausea. Also continues to be mildly short of breath. Minimal wheezing noted. Medications specifically amiodarone could be playing a role. This medication has been discontinued. Patient underwent gallbladder ultrasound yesterday which was suggestive for cholelithiasis, gallbladder wall thickening and positive sonographic Saravia sign suggesting acute cholecystitis. Creatinine is now 6.9 with a BUN of 73. Sodium is 132. Potassium 5.1. H&H 8.8 and 27.2. Patient is currently being diuresed with [address] daily[address] Dr. Pipo Spaulding is following. Abdomen is soft and minimally tender. Vital signs are stable. EKG is pending. Patient currently normal sinus rhythm with heart rates in the 80s without any overt arrhythmias or ectopy noted. Assessment/plan: 1. ACUTE EXACERBATION OF CHRONIC OBSTRUCTIVE AIRWAYS DISEASE - Only minimal wheezing today. Continue breathing treatments and steroid therapy. Management per Dr. Brizuela. Agree with discontinuation of amiodarone. 2. PULMONARY HYPERTENSION - RVSP estimated at 79mmHg plus the right atrial pressure. Continue current plan of care. 3. HYPERTENSION - Well controlled. Continue current plan of care. 4. ANEMIA - Likely anemia of chronic disease as patient has chronic renal disease. No overt bleeding noted. Continue to monitor closely with Daily CBC. 5. PAROXYSMAL ATRIAL FIBRILLATION - Currently in normal sinus rhythm. He has first-degree AV block on telemetry. EKG is pending. Amiodarone has been discontinued as this may be contributing to his lung disease. Suspect that he will develop Afib with RVR as we discontinue the Amiodarone but it will take some time for this to wear off. We will adjust and address this as it arises. 6. CHRONIC RENAL FAILURE - Creatinine is slightly better today at 6.9 from 7.[address] Dr[address] Pipo Spaulding. Will follow his recommendations. Daily BMP. 7. S/P AVR - Stable. Tissue aortic valve. Continue current plan of care. 8. HISTORY OF CVA - Patient is extremely high risk for stroke however he also has very significant anemia and is not a candidate for anticoagulation at this time. 9. ACUTE CHOLECYSTITIS - Patient underwent gallbladder ultrasound yesterday which was suggestive for cholelithiasis, gallbladder wall thickening and positive sonographic Saravia sign suggesting acute cholecystitis. Defer management to hospital medicine. Further plan and addendum to follow per Dr. Martell. Exam (Progress Note) - Constitutional Vitals: Period Temp Pulse Resp BP Sys/Maloney Pulse Ox Last 24 Hr 97.5 F-99.2 F 71-120 16-20 113-130/45-80 91-99 Exam: General appearance: no acute distress, morbidly obese - Head Head exam: Present: normal inspection, normocephalic, atraumatic - Respiratory Respiratory exam: Present: Wheezing. Absent: accessory muscle use, chest wall tenderness, rales and wheezing - Cardiovascular Cardiovascular exam: Present: regular rate and rhythm, systolic murmur. Absent : gallop, rubs, tachycardia - GI/Abdominal GI/Abdominal exam: Present: normal bowel sounds, soft and minimally tender in right upper quadrant. - Extremities Exam Extremities exam: Present: normal inspection, normal capillary refill, other ( Normal lower extremity pulses.). Absent: calf tenderness, edema - Neurological Exam Neurological exam: Present: alert, oriented X3 - Psychiatric Psychiatric exam: Present: normal affect, normal mood - Skin Skin exam: Present: normal color, warm, dry Result/EKG - Labs CBC & BMP: 11/10/16 03:35 11/10/16 03:35 Lab Results: I have reviewed the past 24 hour labs Labs: Laboratory Results - last 24 hr 11/09/16 11/09/16 11/09/16 11:27 16:02 21:15 WBC RBC Hgb Hct MCV MCH MCHC RDW Plt Count MPV Neut % (Auto) Lymph % (Auto) Gove % (Auto) Eos % (Auto) Baso % (Auto) Neut # (Auto) Lymph # (Auto) Gove # (Auto) Eos # (Auto) Baso # (Auto) Immature Gran % Nucleated RBC % Immature Gran # Nucleated RBCs # Sodium Potassium Chloride Carbon Dioxide Anion Gap BUN Creatinine GFR Calculation BUN/Creatinine Ratio Glucose POC Glucose 192 H 259 H 268 H Calculated Osmolality Calcium Magnesium 11/10/16 11/10/16 11/10/16 03:35 03:35 07:38 WBC 8.7 RBC 3.36 L Hgb 8.8 L Hct 27.2 L MCV 81.0 L MCH 26 L MCHC 32.4 RDW 16.1 Plt Count 260 MPV 10.2 Neut % (Auto) 88.7 H Lymph % (Auto) 5.7 L Gove % (Auto) 3.8 Eos % (Auto) 0.0 Baso % (Auto) 0.1 Neut # (Auto) 7.7 H Lymph # (Auto) 0.5 L Gove # (Auto) 0.3 Eos # (Auto) 0.0 Baso # (Auto) 0.0 Immature Gran % 1.7 Nucleated RBC % 0.0 Immature Gran # 0.15 Nucleated RBCs # 0.00 Sodium 132 L Potassium 5.1 Chloride 97 L Carbon Dioxide 20 L Anion Gap 20.1 H BUN 73 H Creatinine 6.90 H GFR Calculation 10 BUN/Creatinine Ratio 10.00 Glucose 206 H POC Glucose 257 H Calculated Osmolality 291.5 Calcium 8.3 L Magnesium 3.1 H <Valorie aMrtell - Last Filed: 11/10/16 13:49> Assessment and Plan (1) Hypertension Status: Chronic Current Visit: Yes Qualifiers: Hypertension type: essential hypertension Qualified Code(s): I10 - Essential (primary) hypertension (2) Anemia Status: Chronic Current Visit: No (3) Renal failure Status: Chronic Current Visit: No Qualifiers: Renal failure chronicity: chronic (4) Acute exacerbation of chronic obstructive airways disease Status: Acute Current Visit: No (5) Paroxysmal atrial fibrillation Status: Chronic Current Visit: Yes (6) S/P AVR (aortic valve replacement) Status: Chronic Current Visit: Yes (7) CVA (cerebral vascular accident) Status: Acute Current Visit: Yes Qualifiers: CVA mechanism: embolism (8) Pulmonary hypertension Status: Acute Current Visit: Yes Cardiology - PN: Subj Interval history: I saw Mr. Roderick Acosta today also discussed with Dr. Spaulding earlier in the day. I reviewed his chest x-ray and I think it looks a little better today than it had yesterday. This may be due to technique. His creatinine is minimally better today. He has subjectively very little change. He continues to wheeze. He denies chest pain or palpitations. He is off his amiodarone as previously documented. His gallbladder ultrasound indicates he has a positive Saravia sign and Vikki lithiasis with a thickened gallbladder wall. There is no fluid mentioned he has minimal pain in the right upper quadrant and I do not proceed from that he is in the left upper quadrant. Defer to the hospitalist for further workup and treatment of this if indicated. He has been afebrile. Exam (Progress Note) - Constitutional Vitals: Period Temp Pulse Resp BP Sys/Maloney Pulse Ox Last 24 Hr 97.5 F-99.2 F 71-120 16-20 113-130/45-80 91-99 Exam: Patient has tight expiratory wheezing he has a regular rhythm appears to be in sinus rhythm by exam. Minimal tenderness in the right upper quadrant but also tender in the left upper quadrant. No lower extremity edema. He has a 3/6 murmur of aortic bioprosthesis. Result/EKG - Labs CBC & BMP: 11/10/16 03:35 11/10/16 03:35 Labs: Laboratory Results - last 24 hr 11/09/16 11/09/16 11/10/16 16:02 21:15 03:35 WBC 8.7 RBC 3.36 L Hgb 8.8 L Hct 27.2 L MCV 81.0 L MCH 26 L MCHC 32.4 RDW 16.1 Plt Count 260 MPV 10.2 Neut % (Auto) 88.7 H Lymph % (Auto) 5.7 L Gove % (Auto) 3.8 Eos % (Auto) 0.0 Baso % (Auto) 0.1 Neut # (Auto) 7.7 H Lymph # (Auto) 0.5 L Gove # (Auto) 0.3 Eos # (Auto) 0.0 Baso # (Auto) 0.0 Immature Gran % 1.7 Nucleated RBC % 0.0 Immature Gran # 0.15 Nucleated RBCs # 0.00 ABG pH ABG pCO2 ABG pO2 ABG HCO3 ABG Total CO2 ABG O2 Saturation ABG Base Excess FiO2 Sodium Potassium Chloride Carbon Dioxide Anion Gap BUN Creatinine GFR Calculation BUN/Creatinine Ratio Glucose POC Glucose 259 H 268 H Calculated Osmolality Calcium Magnesium 11/10/16 11/10/16 11/10/16 03:35 07:38 10:37 WBC RBC Hgb Hct MCV MCH MCHC RDW Plt Count MPV Neut % (Auto) Lymph % (Auto) Gove % (Auto) Eos % (Auto) Baso % (Auto) Neut # (Auto) Lymph # (Auto) Gove # (Auto) Eos # (Auto) Baso # (Auto) Immature Gran % Nucleated RBC % Immature Gran # Nucleated RBCs # ABG pH 7.388 ABG pCO2 34.5 L ABG pO2 40.8 L* ABG HCO3 20.3 ABG Total CO2 21.4 L ABG O2 Saturation 74.2 L ABG Base Excess -4.1 L FiO2 Sodium 132 L Potassium 5.1 Chloride 97 L Carbon Dioxide 20 L Anion Gap 20.1 H BUN 73 H Creatinine 6.90 H GFR Calculation 10 BUN/Creatinine Ratio 10.00 Glucose 206 H POC Glucose 257 H Calculated Osmolality 291.5 Calcium 8.3 L Magnesium 3.1 H 11/10/16 11:43 WBC RBC Hgb Hct MCV MCH MCHC RDW Plt Count MPV Neut % (Auto) Lymph % (Auto) Gove % (Auto) Eos % (Auto) Baso % (Auto) Neut # (Auto) Lymph # (Auto) Gove # (Auto) Eos # (Auto) Baso # (Auto) Immature Gran % Nucleated RBC % Immature Gran # Nucleated RBCs # ABG pH 7.439 ABG pCO2 28.1 L ABG pO2 55.0 L ABG HCO3 18.6 L ABG Total CO2 19.5 L ABG O2 Saturation 89.2 L ABG Base Excess -4.5 L FiO2 21.00 Sodium Potassium Chloride Carbon Dioxide Anion Gap BUN Creatinine GFR Calculation BUN/Creatinine Ratio Glucose POC Glucose Calculated Osmolality Calcium Magnesium
--- NOTE | 2016-11-10 09:50 | EKG Report ---
Stationary ECG Study [facility] Test Date: 11/10/2016 9:49:32 AM Pat Name: MALAIKA DRAKE Department: Room: 271 Gender: M Dial Printer: : [id number] Requested by: Keila Means Order Number: [id number] Reading MD: LINO YUEN Intervals [place] Rate: 82 P: 35 NC: 280 QRS: -60 QRSD: 122 T: 99 QT: 414 QTc: 453 Interpretive Statements SINUS RHYTHM WITH PROLONGED NC INTERVAL LEFT ANTERIOR FASCICULAR BLOCK Electronically Signed On 11-11-16 08:52:26 CDT by LINO YUEN [email or web address]
[2016-11-10] MEDS: ALLOPURINOL 300 MG TABLET PO SCH (09:57)
[2016-11-10] MEDS: ACETAMINOPHEN 325 MG TABLET PO PRN (09:57)
[2016-11-10] MEDS: DOCUSATE SODIUM 100 MG CAPSULE PO SCH ×2 (09:58→20:41)
[2016-11-10] MEDS: CHOLECALCIFEROL 1,000 UNIT TABLET PO SCH (09:58)
[2016-11-10] MEDS: ASPIRIN EC 81 MG TABLET PO SCH (09:58)
[2016-11-10] MEDS: PANTOPRAZOLE 40 MG TABLET PO SCH ×2 (09:58→16:32)
[2016-11-10] MEDS: COLCHICINE 0.6 MG TABLET PO SCH (09:58)
[2016-11-10] MEDS: ATORVASTATIN 40 MG TABLET PO SCH (09:58)
[2016-11-10] MEDS: FUROSEMIDE 40 MG TABLET PO SCH (09:58)
[2016-11-10] MEDS: FOLIC ACID 0.4 MG TABLET PO SCH (09:58)
[2016-11-10] MEDS: METOPROLOL TARTRATE 25 MG TABLET PO SCH ×2 (09:58→20:41)
[2016-11-10] MEDS: MAGNESIUM OXIDE 400 MG TABLET PO SCH (09:59)
[2016-11-10] MEDS: MUPIROCIN 2% OINT 22 GM TUBE TOP SCH ×2 (09:59→21:26)
[2016-11-10] MEDS: HEPARIN 5,000 UNIT/1 ML VIAL SUBCUT SCH ×2 (10:00→21:27)
--- NOTE | 2016-11-10 10:11 | Pulmonology Progress Note ---
Pulmonary - PN: Subj Interval history: This is a 71-year-old white male. I saw him in pulmonary consultation 2016. My impressions were. 1. Acute congestive heart failure. 2. Aortic valve replacement 2012 3. COPD. Past history tobacco abuse 3.1 Anemia. Folic acid level is low and vitamin B12 level is normal. #4 chronic renal failure 5. Low calcium and low albumin. 6. Insulin-dependent diabetes mellitus with a history of diabetic ketoacidosis 7. Hyperlipidemia 8. History of atrial fib 9. Symptoms suggestive of obstructive sleep apnea 10. Mild pulmonary hypertension. Etiology undetermined. Note elevated left ventricular filling blood pressures on echocardiogram. Previous echocardiogram was obtained when the patient was in congestive heart failure. Obstructive sleep apnea could be a contributory factor. 11. Past history of deep venous thrombophlebitis and pulmonary emboli. No evidence of either found during initial workup this admission 12. See past history 11/01/2016. Chest x-rays are pending. I have ordered the EPA and lateral for today and tomorrow. Patient still has shortness of breath and he complains of chest pain with exertion. To me this chest pain is worrisome for cardiac angina. Pulmonary hypertension can sometimes cause similar pain. Last admission the patient's pulmonary artery pressures were 65-70 mmHg. This echocardiogram was obtained while the patient was in congestive heart failure. I am going to order a repeat echocardiogram for comparison pulmonary artery pressures. Patient's on Procardia XL 60 which is a good medicine for pulmonary hypertension. We could go higher. We could add Revatio if it appears safe from a cardiology standpoint. Occasionally Apresoline works for pulmonary hypertension. Apresoline could be added if needed to help with cardiac output. Patient's H&H is 7.6/23.9. He is low folic acid. His B12 is normal. He also is low on iron. I have started replacement with iron and also folic acid. His vitamin D level is low and vitamin D replacement has been started. I am going to transfuse the patient with a unit of blood today and if he tolerates this well will probably should transfuse another unit tomorrow. This will certainly improve his oxygen carrying capacity. BNP is pending. Note sedimentation rate is 96. Doppler venograms were negative for deep venous thrombophlebitis. Ventilation perfusion lung scan showed no perfusion defects. 11/02/2016. Today's x-ray shows mild residual congestive heart failure. BNP remains elevated at 556. Noted creatinine is 4.60 with a BUN of 52 and this may falsely elevate his BNP. Patient's vitamin D is low and will order replacement. Folic acid is also low. B12 is in the normal range of 438. Posttransfusion H&H is 8.4/26.9. Iron saturation is also low. Iron has not been started. Patient has some persistent nausea. Nares are positive for MRSA. Repeat echocardiogram done 10/29/2016 shows ejection fraction 65% with grade 3 diastolic dysfunction and moderate biatrial enlargement. There is mild atrial regurgitation. Trace of aortic insufficiency. Pulmonary artery pressures are estimated to be 79 mmHg. Patient's on Procardia XL 60 and I will increase this to 120 mg daily. We did consider Revatio if cardiology feels this is safe. Would start with 20 mg every 8 hours. Alternatively we could try Apresoline 25 3 times daily which occasionally helps and may help with the patient's cardiac output. Will ask for Dr. Bueno's comment. 11/03/2016. Today's chest x-ray continues to show mild pulmonary edema. 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 CBC is stable. The rest of today's lab is pending. Dr. Lydia Ca sleep medicine note has been reviewed and I agree with his plans. Patient's was apparently asleep on the bed. She moves her foot but she never turned over or participate in our conversation today. Santosh Courtney nurse practitioner was present. Patient's had some slight fever related to blood transfusions. I do not see anything so far that looks like amiodarone along. Amiodarone was only recently added. Procardia XL was increased to 60 mg twice a day on 11/02/2016 an attempt to treat the patient's pulmonary hypertension 11/04/2016. This patient had altered mental status and had a normal CT of the head yesterday. I reviewed his medicines from last night. He received [place] 10. 4 mg of morphine and transfers seen. He is a little slow on the mental uptake this morning and I suspect the answer lies in his medicines. This patient has had heart failure that has not quite resolved. His chest x-ray has not been done today. See my note from 11/03/2016. I reviewed the number of old x-rays at his baseline x-ray should looked like x-rays that were done on 2014, 01/05/2016 and on 09/26/2016. The changes he has now are secondary to none resolved pulmonary edema. These are exactly the same changes that he has had before when he has pulmonary edema. The only outlier would be a reaction to amiodarone but he is only been on this for short period of time BNP is elevated at 307. Patient creatinine remains elevated 490 with a BUN of 52 and normal electrolytes. H&H a little bit better at 9.9/31.2. White count 6200 and platelets are 182,000. Will continue to follow his chest x-ray and lab. 11/08/2016. Chest x-ray is essentially unchanged showing increased interstitial markings in all 5 lobes of the lung. Creatinine 6.60 with a BUN of 63. Sodium 134. Potassium 4.7. Magnesium is 3.2. Natruretic peptide is 625. H&H is 9.2/ 28.6. White count is 7078 segs 11 lymphs and 9 mono s. There are no new cultures. Patient is much more alert and oriented today. He says he is breathing much better. Notes from Dr. Valorie Mascorro and Dr. Eliud Brito's have been reviewed 11/09/2016. Dr. Valorie Mascorro and I have discussed the case. We both are suspicious that we are dealing with amiodarone alone. Amiodarone was started this admission and the reconciliation by the senior data scientist implied that the patient was already on the medicine. The patient is a terrible historian. His is asleep on the cot next to him and is not much help. He says he has been on amiodarone for years. Will stop amiodarone. I am patient change in the patient's prednisone to Solu-Medrol 40 IV push every 8 hours and will monitor his chest x-ray is O2 sats. The patient is on Plaquenil. He has no idea why he takes this medicine. Creatinine is now 7.10 with a BUN of 76. Sodium is 132. Potassium 4.9. White count is 10,886 segs 6.6 lymphs and 5.5 monocytes. There are no eosinophils. H&H is 8.9 with 27.5. 11/10/2016. On 11/09/2016 Dr. Valorie Mascorro and I decided to stop the patient's amiodarone and I started him on a moderate dose of steroids. He had had 5 lobe interstitial infiltrates that did not resolve it is suspected. Today's x-ray is better by close to 50% allowing for the fact that this x-rays a little more penetrated than his previous x-rays. Patient says his breathing is more comfortable. He is lying flat in bed. Patient also has a abnormal ultrasound of the gallbladder. I will check room air ABGs and complete pulmonary function test with pre-and postbronchodilator spirometry to get an approximate baseline of where this patient is so we have some parameters to follow down the road. Patient is possibly for placement of a dialysis line today. There are no new positive cultures. Creatinine is 6.90 with a BUN of 73. Sodium is 132 with a potassium of 5.1. White count is 8700 with 89 segs. H&H is 8.8/27.2 and platelets 260,000. Nitrated peptide is been elevated. Physical exam. Vital signs. See below. Face is symmetrical. Lips and tongue are normal Neck. Symmetrical no meningismus. Lymphatics. No submandibular cervical supraclavicular or epitrochlear adenopathy. Chest is fairly clear. Patient's breathing comfortably lying flat in bed Heart lateral PMI Abdomen. Nontender. Positive bowel sounds Lower extremities. Skin no evidence of chronic venous stasis. No edema. Neurologic. Cranial nerves are intact. Long track motor functions intact. Gait was not tested. Psychiatric. Oriented 3. Very poor historian. Concentration is poor. Patient appears to be low on information. The remainder the physical exam is noncontributory. Plan. 11/01/2016. See my note above. See numbers 1 through 9 below 1. Diuresis. Watch BMP. 2. Replace folic acid 3. Replace iron 4. Blood transfusion 5. Deep venous thrombophlebitis prevention protocol 6. Replace vitamin D 7. Follow-up chest x-ray #8. Repeat echocardiogram. Consider increase of Procardia. Consider Revatio say from a cardiology standpoint. An outlier for pulmonary hypertension would be Apresoline. 11/02/2016. See today's note above. Increase Procardia XL 60 to twice daily . Last Dr. Moseley his opinion concerning Revatio and/or Apresoline 11/03/2016. See today's note above. 11/04/2016. See today's note above. Considering cutting back significantly on this patient pain medicines. I suspect these are the cause of his altered mental status. We will follow-up his chest x-ray and lab. Dr. Radha mcadams will see the patient this week 12. 11/08/2016. See today's note above. 11/09/2016. See today's note above. DC amiodarone. Change prednisone to Solu-Medrol. Dr. Mascorro and I have reviewed the case and coordinated our care 11/10/2016. Off amiodarone. Chest x-ray better. Abnormal gallbladder studies dialysis line possible. Baseline ABGs and complete pulmonary function test with pre-and postbronchodilator spirometry. Follow-up chest x-ray Exam (Progress Note) - Constitutional Vitals: Period Temp Pulse Resp BP Sys/Maloney Pulse Ox Last 24 Hr 97.5 F-99.2 F 71-120 16-20 113-130/45-80 91-99 Results - Labs CBC & BMP: 11/10/16 03:35 11/10/16 03:35
[2016-11-10 10:41] LABS: ABG Base Excess -4.1 MMOL/L (-2.5-2.5); ABG HCO3 20.3 MMOL/L (20-26); ABG Oxygen Saturation 74.2 % (95-100); ABG PCO2 34.5 MM HG (35-48); ABG PH 7.388 (7.35-7.45); ABG TCO2 21.4 MMOL/L (23-27)
[2016-11-10 10:42] LABS: ABG PO2 40.8 MM HG (80-95)
[2016-11-10 11:43] LABS: ABG Base Excess -4.5 MMOL/L (-2.5-2.5); ABG HCO3 18.6 MMOL/L (20-26); ABG Oxygen Saturation 89.2 % (95-100); ABG PCO2 28.1 MM HG (35-48); ABG PH 7.439 (7.35-7.45); ABG TCO2 19.5 MMOL/L (23-27); Allen Test Positive; Pt O2 Delivery Device Room Air
[2016-11-10] MEDS: MORPHINE 2 MG/1 ML SYRINGE IV PRN (12:00)
[2016-11-10] MEDS: INSULIN LISPRO 100 UNIT/ML SUBCUT SCH ×4 (12:08→21:46)
--- NOTE | 2016-11-10 13:23 | Nephrology Progress Note ---
Nephrology - PN: Subj Interval history: He states his breathing is a little better today. He remains fairly weak. Nausea improved Exam (PN)-Nephrology - Vital Signs Vital signs: Period Temp Pulse Resp BP Sys/Maloney Pulse Ox Last 24 Hr 97.5 F-99.2 F 71-120 16-20 113-130/45-80 91-99 Exam: ENT: Normal Cardiovascular: Regular rate and rhythm. No murmur rub or gallop Lungs: Minimal expiratory wheezes Extremities: No edema - Lab 11/10/16 03:35 11/10/16 03:35 Most recent lab results ABG pH 7.439 (7.35-7.45) 11/10/16 11:43 ABG pCO2 28.1 MM HG (35-48) L 11/10/16 11:43 ABG pO2 55.0 MM HG (80-95) L 11/10/16 11:43 ABG HCO3 18.6 MMOL/L (20-26) L 11/10/16 11:43 ABG O2 Saturation 89.2 % (95-100) L 11/10/16 11:43 Calcium 8.3 MG/DL (8.5-10.1) L 11/10/16 03:35 Magnesium 3.1 MG/DL (1.8-2.4) H 11/10/16 03:35 Assessment and Plan (1) Chronic kidney disease, stage IV (severe) Status: Chronic Assessment and plan: 71-year-old man admitted with: * CRF stage IV. Baseline creatinine upper threes * ARF on CRF. Creatinine has decreased slightly today. Dialysis catheter will not be placed today. Hopefully renal function will improve. He understands that reevaluation daily is required * Diastolic CHF. His weight is variable but has decreased with diuresis * COPD. No wheezing today * Pulmonary hypertension * Prosthetic aortic valve * Diabetes mellitus * Hypertension * Anemia. Posttransfusion Current Visit: Yes (2) Diastolic CHF Status: Acute Current Visit: Yes Qualifiers: Congestive heart failure chronicity: acute on chronic Qualified Code(s): I50.33 - Acute on chronic diastolic (congestive) heart failure (3) Pulmonary edema Status: Acute Current Visit: Yes (4) Chronic obstructive pulmonary disease Status: Acute Current Visit: Yes Qualifiers: COPD type: unspecified COPD Qualified Code(s): J44.9 - Chronic obstructive pulmonary disease, unspecified (5) Diabetes mellitus Status: Chronic Current Visit: Yes Qualifiers: Diabetes mellitus type: type 2 Diabetes mellitus complication status: with kidney complications Diabetes mellitus complication detail: with chronic kidney disease 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
--- NOTE | 2016-11-10 13:53 | Hospitalist Progress Note ---
Assessment and Plan (1) Acute cholecystitis Status: Acute Assessment and plan: The patient's nausea may be due to cholecystitis. I have asked Dr. Gray to evaluate the patient's ultrasound and make recommendations. Current Visit: Yes (2) Acute exacerbation of chronic obstructive airways disease Status: Acute Current Visit: Yes (3) Diastolic CHF Status: Acute Current Visit: Yes Qualifiers: Congestive heart failure chronicity: acute on chronic Qualified Code(s): I50.33 - Acute on chronic diastolic (congestive) heart failure (4) Chronic kidney disease, stage IV (severe) Status: Chronic Current Visit: Yes Hospitalist: Subjective Interval history: The patient is resting quietly in bed. Nausea continues. The patient's breathing is stable. Exam - Constitutional Vitals: Period Temp Pulse Resp BP Sys/Maloney Pulse Ox Last 24 Hr 97.5 F-99.2 F 71-120 16-20 113-130/45-80 91-99 Exam: Constitutional System: Mild distress. No tremulousness. Laying in left decubitus with nausea Head: Normocephalic, atraumatic. Ears, Nose and Throat System: No evidence of Otitis or Mastoiditis. No epistaxis or discharge Eyes System: Pupils equal, round, and reactive. Extraocular muscles intact. Neck: Supple, without adenopathy, No jugular venous distention. No thyromegaly , neck mass, or prior surgery apparent. Respiratory System: Chest few rales in bases to auscultation. Cardiovascular System: Heart with regular rate and rhythm. No murmur. GI System: Abdomen soft Musculoskeletal System: limbs with no pedal edema. Full distal pulses. Neurological System: No discernable sensory deficit. No aphasia Psychiatric System: Conversation is rational Results - Labs CBC & BMP: 11/10/16 03:35 11/10/16 03:35 Lab Results: I have reviewed the past 24 hour labs
[2016-11-10] MEDS ORDERED: PROMETHAZINE 25 MG TABLET PO ONE (14:48)
--- NOTE | 2016-11-10 14:59 | General Surgery Consult Note ---
Assessment and Plan (1) Acute cholecystitis Status: Acute Assessment and plan: The patient is a 71-year-old male with acute cholecystitis in the face of COPD exacerbation, diastolic CHF exacerbation, and acute renal failure and multiple other chronic comorbidities. It does appear he is slightly in improving at this time, but is requiring after treatment for the above. He will he also has evidence of and clinical symptoms of acute cholecystitis. Obviously, this to be best served with cholecystectomy. He is not an ideal operative candidate, but he will hopefully continue to improve and become a reasonable candidate for cholecystectomy. The patient is afebrile without leukocytosis, so in the interim we will start some IV antibiotics, Actigall, and continue antiemetics and analgesics as warranted. He may require bowel rest for better control of his symptoms. Check LFTs and coags in the morning. if the patient's condition worsens and/or fails to improve adequately, we may proceed with cystoscopy tube. The care of this patient will require care coordination with the other medical physicians and we appreciate their input on his perioperative risk. Current Visit: Yes History of Present Illness Chief complaint: Nausea and abdominal pain History of present illness: Mr. Acosta is a 71 year old male currently in patient with COPD exacerbation with chronic hypoxemia, acute renal failure (creat 6.9 with baseline upper 3's) with CKD 4 baseline, diastolic heart failure, paroxysmal A. fib with first- degree heart block, history of DVT/PE, and anemia status post recent transfusion , and multiple other comorbidities for whom we are consulted with findings concerning for acute cholecystitis on gallbladder ultrasound with the patient having persistent nausea and abdominal pain. Patient reports for partially one month he has had intermittent epigastric and right upper quadrant abdominal pain associated with nausea without vomiting. He has not had this evaluated and has no known history of gallbladder issues. He states his current nausea and pain are not necessarily exacerbated by meals, but he has low appetite. He has not had fever,, vomiting or diarrhea; he had a bout of constipation which report is resolving. Home Medications Medication Instructions Recorded Confirmed Type Omeprazole [Prilosec] 20 mg PO BID W/MEALS 01/05/16 11/02/16 History Allopurinol [Zyloprim] 150 mg PO DAILY #30 mg 02/06/16 11/02/16 Rx Sodium Bicarb Tab 325 mg PO BID 09/21/16 11/02/16 History Docusate Sodium Cap [Colace Cap] 100 mg PO BID #60 capsule 10/03/16 11/02/16 Rx Furosemide Tab [Lasix Tab] 80 mg PO DAILY #30 tablet 10/03/16 11/02/16 Rx HYDROcodone/ACETAMIN 10-325 [[place] 1 tablet PO Q4H PRN #30 tablet 10/03/1611/02 Rx 10-325] Metoprolol Tartrate Tab [Lopressor 25 mg PO BID #60 tablet 10/03/16 11/02/16 Rx Tab] Allergies Allergy/AdvReac Type Severity Reaction Status Date / Time steroid AdvReac Hypertensio Uncoded 10/29/16 01:18 n Medical,Surgical,& Family Hx - Medical History Cardio: History of: Cardiac Dysrhythmia (afib), Hypertension, Cardiovascular Problems (Aortic valve; DVT's) No history of: CAD, [place] Endocrine: History of: Diabetes Mellitus (IDDM), Dyslipidemia Rheumatology: History of;: Gout Respiratory: History of: COPD (Home O2 at 2L) Renal: History of: Renal Problems (metabolic acidosis with elevated serum creatinine) Gastrointestinal: History of: GERD No history of: Hemorrhoids Musculoskeletal: History of: Back/Neck Problems Other: History of: Skin Problems - Surgical History Cardiac Surgeries: Sugical HX of: Cardiac Surgery (Aortic valve replacement 2012 ) Thoracic Surgeries: Patient denies;: Organ Transplant Neurologic Surgeries: Patient denies: Neurologic Surgery HEENT Surgeries: Surgical HX of: Tonsilectomy & Adenoidectomy Abdominal Surgeries: Patient denies: Appendectomy, Cholecystectomy Orthopedic Surgeries: Surgical HX of;: Total Knee Replacement (BOTH) - Family History Family History: Reports;: Family Diabetes, Family Hypertension Denies;: Family Stroke Comment Only: Family Cancer (mother,colon. brother, prostate) - Social History Smoking Status: Former smoker Frequency of Alcohol Use: None Type of Drug Use: None - Constitutional Constitutional: Absent: chills, fever(s) - Respiratory Respiratory: Present: cough (chronic) - Gastrointestinal Gastrointestinal: Present: as per HPI - Genitourinary Genitourinary: Absent: dysuria, flank pain - Musculoskeletal Musculoskeletal: Absent: arthralgias Hematologic/Lymphatic: Absent: easy bleeding, easy bruising Exam - Constitutional Vitals: Period Temp Pulse Resp BP Sys/Maloney Pulse Ox Last 24 Hr 97.5 F-99.2 F 71-120 16-20 113-130/45-80 91-99 General appearance: no acute distress, morbidly obese - Head Head exam: Present: normal inspection, normocephalic - Eye Eye exam: Absent: conjunctival injection, scleral icterus - Neck Neck exam: Present: trachea midline - Respiratory Respiratory exam: Present: other (Shallow breath sounds; no adventitious sounds noted at the time of my exam) - Cardiovascular Cardiovascular exam: Present: RRR - GI/Abdominal GI/Abdominal exam: Present: other (Abdomen is obese and soft. Patient with right upper quadrant tenderness and positive Saravia sign. Abdomen is nondistended and no peritoneal signs. Bowel sounds present) - Extremities Exam Extremities exam: Absent: calf tenderness, edema - Neurological Exam Neurological exam: Present: alert, oriented X3 Speech: Present: normal - Skin Skin exam: Present: normal color, warm Results - Labs CBC & BMP: 11/10/16 03:35 11/10/16 03:35 Labs: No LFTs available - Diagnostic Findings Procedure: Ultrasound: report reviewed by me
[2016-11-10] MEDS: PIPERACILLIN/TAZOBACTAM 3,375 MG in SODIUM CHLORIDE 0.9% 100 ML IV SCH (16:31)
[2016-11-10] MEDS: URSODIOL 300 MG CAPSULE PO SCH (20:41)
[2016-11-10] MEDS: CLORAZEPATE 3.75 MG TABLET PO PRN (20:42)
[2016-11-11] MEDS: ALBUTEROL 2.5 MG/3 ML NEB RESP TX SCH ×5 (00:44→23:23)
[2016-11-11] MEDS: methylPREDNISolone SOD SUC 40 MG/1 ML VIAL IV SCH ×3 (00:58→18:18)
[2016-11-11] MEDS: PIPERACILLIN/TAZOBACTAM 3,375 MG in SODIUM CHLORIDE 0.9% 100 ML IV SCH (03:52)
[2016-11-11 04:52] LABS: Basophils % 0.1 % (0.0-0.8); Hematocrit 27.7 VOL% (42.0-52.0); Hemoglobin 9.1 GM/DL (14.0-18.0); Immature Granulocytes % 2.2 %; Immature Granulocytes Absolute 0.28 #; Lymphocytes # 0.5 10*3/uL (1.4-4.0); Mean Corpuscular HGB Conc 32.9 GM/DL (32-36); Mean Corpuscular Hemoglobin 26 PG (27-34); Mean Corpuscular Volume 79.8 FL (87-102); Mean Platelet Volume 10.5 FL (9.6-12.0); Monocytes # 0.6 10*3/uL (0.11-0.8); Monocytes % 4.4 % (1.7-12.7); Neutrophils # 11.3 10*3/uL (1.4-7.4); Neutrophils % 89.3 % (38.7-73.9); Platelet Count 308 T/CUMM (130-400); Red Blood Count 3.47 MC/CUMM (3.8-5.5); Red Cell Distribution Width 16.1 % (9.3-17.3); White Blood Count 12.6 T/CUMM (4-12)
[2016-11-11 05:16] LABS: PT Patient Result 11.1 SECS
[2016-11-11 05:17] LABS: Giant Platelets Few; Hypochromasia Slight; Lymphocytes 2 % (20-55); Ovalocytes Slight; Platelet Estimate Adequate; Segmented Neutrophils 95 % (50-85); Total Cells Counted 100
[2016-11-11 05:29] LABS: Calcium 8.3 MG/DL (8.5-10.1); Osmolality,Calculated 295.8 MOS/KG (273-304); Potassium 5.3 MMOL/L (3.5-5.1)
[2016-11-11 05:30] LABS: Albumin 3.4 G/DL (3.4-5.0); Bilirubin,Direct 0.3 MG/DL (0.0-0.20); Bilirubin,Indirect 0.5 MG/DL (0.0-1.0); Bilirubin,Total 0.8 MG/DL (0.2-1.0); Total Protein 7.3 G/DL (6.4-8.3)
--- NOTE | 2016-11-11 07:32 | XRay Report ---
XR chest 2V Indication: CHF Comparison: Chest x-ray 11/10/2016. Technique: PA and lateral chest x-ray was performed. Findings: Lung parenchyma bilaterally demonstrates a pattern of coarsened reticular and linear interstitial markings and scattered airspace opacities that given the difference in technique have probably changed little since comparison study. Heart size is stable. Sternal wires are stable. Bones and soft tissues demonstrate no significant interval change. Impression: 1. Appearance of the lung parenchyma is considered compatible with given history of CHF with evidence of pulmonary edema. Given the difference in technique, little change has probably occurred in the lungs. 11/11/2016 7:27 AM PROCEDURE INTERPRETED AT [facility] DEPARTMENT OF RADIOLOGY Final Report Signed by: Dr. Pepito Santos
--- NOTE | 2016-11-11 07:59 | Event Note ---
I discussed with Dr. Gray yesterday via phone. Mr. Acosta is chronically ill and has many comorbidities. I think he is an acceptable risk to proceed with cholecystectomy at this time. He has acute cholecystitis and sepsis or gangrenous complications of this disease process would certainly be a higher risk to him then proceeding with this moderate risk operative procedure.
--- NOTE | 2016-11-11 08:06 | General Surgery Progress Note ---
Assessment and Plan (1) Acute cholecystitis Status: Acute Assessment and plan: The patient is stable today. His creatinine is relatively stable and I have discussed his care with Dr. Mascorro, Dr. Brizuela, and Dr. Spaulding. We are all in agreement that cholecystectomy is the best treatment plan for him. I have talked with Dr. Spaulding again this morning and we will hold off on a dialysis catheter for now and monitor his renal function postoperatively. We will do our best to avoid intraoperative hypotension or any injury that may cause further renal dysfunction. I discussed the procedure in detail with the patient. Current Visit: Yes Subjective Patient reports: Present: no new complaints, afebrile Exam - Constitutional Vitals: Period Temp Pulse Resp BP Sys/Maloney Pulse Ox Last 24 Hr 97.8 F-98.7 F 71-83 16-22 120-137/56-63 94-98 General appearance: no acute distress, over weight - Head Head exam: Present: normal inspection, normocephalic - Eye Eye exam: Present: EOMI Pupils: Present: TAMIA - ENT ENT exam: Present: normal exam Mouth exam: Present: normal external inspection, normal voice - Neck Neck exam: Present: normal inspection, trachea midline - Respiratory Respiratory exam: Present: clear to auscultation bilaterally. Absent: accessory muscle use, chest wall tenderness - Cardiovascular Cardiovascular exam: Present: RRR. Absent: systolic murmur, tachycardia - GI/Abdominal GI/Abdominal exam: Present: Saravia's sign, tenderness, soft. Absent: rebound - Extremities Exam Extremities exam: Present: normal inspection, normal capillary refill - Back Exam Back exam: Present: normal inspection - Neurological Exam Neurological exam: Present: alert, oriented X3 Speech: Present: normal - Skin Skin exam: Present: normal color, warm Results - Labs CBC & BMP: 11/11/16 03:25 11/11/16 03:25
[2016-11-11] MEDS: ASPIRIN EC 81 MG TABLET PO SCH (08:25)
[2016-11-11] MEDS: INSULIN LISPRO 100 UNIT/ML SUBCUT SCH ×4 (08:25→20:23)
[2016-11-11] MEDS: PANTOPRAZOLE 40 MG TABLET PO SCH ×2 (08:25→16:41)
[2016-11-11] MEDS: URSODIOL 300 MG CAPSULE PO SCH (08:25)
[2016-11-11] MEDS: DOCUSATE SODIUM 100 MG CAPSULE PO SCH ×2 (08:26→20:23)
[2016-11-11] MEDS: MUPIROCIN 2% OINT 22 GM TUBE TOP SCH ×2 (08:26→20:25)
[2016-11-11] MEDS: ATORVASTATIN 40 MG TABLET PO SCH (08:26)
[2016-11-11] MEDS: FOLIC ACID 0.4 MG TABLET PO SCH (08:26)
[2016-11-11] MEDS ORDERED: TISSUE ADHESIVE 1 EACH APPLICATOR TOP ONE (08:26)
[2016-11-11] MEDS: METOPROLOL TARTRATE 25 MG TABLET PO SCH ×2 (08:26→20:22)
[2016-11-11] MEDS: CHOLECALCIFEROL 1,000 UNIT TABLET PO SCH (08:27)
[2016-11-11] MEDS: ALLOPURINOL 300 MG TABLET PO SCH (08:27)
[2016-11-11] MEDS ORDERED: LIDOCAINE 1%/EPI INJ 20 ML VIAL ONE (08:27)
[2016-11-11] MEDS ORDERED: ONDANSETRON 4 MG/2 ML VIAL ONE ×2 (08:50→10:14)
[2016-11-11] MEDS ORDERED: PROPOFOL 200 MG/20 ML VIAL IV ONE (08:50)
[2016-11-11] MEDS ORDERED: LABETALOL 20 MG/4 ML SYRINGE IV ONE (08:50)
[2016-11-11] MEDS ORDERED: ROCURONIUM 100 MG/10 ML VIAL IV ONE (08:50)
[2016-11-11] MEDS ORDERED: LIDOCAINE 2% 5 ML VIAL ONE (08:50)
--- NOTE | 2016-11-11 09:52 | Pulmonology Progress Note ---
Pulmonary - PN: Subj Interval history: This is a 71-year-old white male. I saw him in pulmonary consultation 2016. My impressions were. 1. Acute congestive heart failure. 2. Aortic valve replacement 2012 3. COPD. Past history tobacco abuse 3.1 Anemia. Folic acid level is low and vitamin B12 level is normal. #4 chronic renal failure 5. Low calcium and low albumin. 6. Insulin-dependent diabetes mellitus with a history of diabetic ketoacidosis 7. Hyperlipidemia 8. History of atrial fib 9. Symptoms suggestive of obstructive sleep apnea 10. Mild pulmonary hypertension. Etiology undetermined. Note elevated left ventricular filling blood pressures on echocardiogram. Previous echocardiogram was obtained when the patient was in congestive heart failure. Obstructive sleep apnea could be a contributory factor. 11. Past history of deep venous thrombophlebitis and pulmonary emboli. No evidence of either found during initial workup this admission 12. See past history 11/01/2016. Chest x-rays are pending. I have ordered the EPA and lateral for today and tomorrow. Patient still has shortness of breath and he complains of chest pain with exertion. To me this chest pain is worrisome for cardiac angina. Pulmonary hypertension can sometimes cause similar pain. Last admission the patient's pulmonary artery pressures were 65-70 mmHg. This echocardiogram was obtained while the patient was in congestive heart failure. I am going to order a repeat echocardiogram for comparison pulmonary artery pressures. Patient's on Procardia XL 60 which is a good medicine for pulmonary hypertension. We could go higher. We could add Revatio if it appears safe from a cardiology standpoint. Occasionally Apresoline works for pulmonary hypertension. Apresoline could be added if needed to help with cardiac output. Patient's H&H is 7.6/23.9. He is low folic acid. His B12 is normal. He also is low on iron. I have started replacement with iron and also folic acid. His vitamin D level is low and vitamin D replacement has been started. I am going to transfuse the patient with a unit of blood today and if he tolerates this well will probably should transfuse another unit tomorrow. This will certainly improve his oxygen carrying capacity. BNP is pending. Note sedimentation rate is 96. Doppler venograms were negative for deep venous thrombophlebitis. Ventilation perfusion lung scan showed no perfusion defects. 11/02/2016. Today's x-ray shows mild residual congestive heart failure. BNP remains elevated at 556. Noted creatinine is 4.60 with a BUN of 52 and this may falsely elevate his BNP. Patient's vitamin D is low and will order replacement. Folic acid is also low. B12 is in the normal range of 438. Posttransfusion H&H is 8.4/26.9. Iron saturation is also low. Iron has not been started. Patient has some persistent nausea. Nares are positive for MRSA. Repeat echocardiogram done 10/29/2016 shows ejection fraction 65% with grade 3 diastolic dysfunction and moderate biatrial enlargement. There is mild atrial regurgitation. Trace of aortic insufficiency. Pulmonary artery pressures are estimated to be 79 mmHg. Patient's on Procardia XL 60 and I will increase this to 120 mg daily. We did consider Revatio if cardiology feels this is safe. Would start with 20 mg every 8 hours. Alternatively we could try Apresoline 25 3 times daily which occasionally helps and may help with the patient's cardiac output. Will ask for Dr. Bueno's comment. 11/03/2016. Today's chest x-ray continues to show mild pulmonary edema. I reviewed a lot of the patient's old x-rays and x-rays done 05/14/2015, 01/05/2016 and 09/26/2016 are territory representative chest x-rays when he is out of congestive heart failure. CBC is stable. The rest of today's lab is pending. Dr. Lydia Ca sleep medicine note has been reviewed and I agree with his plans. Patient's was apparently asleep on the bed. She moves her foot but she never turned over or participate in our conversation today. Santosh Courtney nurse practitioner was present. Patient's had some slight fever related to blood transfusions. I do not see anything so far that looks like amiodarone along. Amiodarone was only recently added. Procardia XL was increased to 60 mg twice a day on 11/02/2016 an attempt to treat the patient's pulmonary hypertension 11/04/2016. This patient had altered mental status and had a normal CT of the head yesterday. I reviewed his medicines from last night. He received Sl[place] 10. 4 mg of morphine and transfers seen. He is a little slow on the mental uptake this morning and I suspect the answer lies in his medicines. This patient has had heart failure that has not quite resolved. His chest x-ray has not been done today. See my note from 11/03/2016. I reviewed the number of old x-rays at his baseline x-ray should looked like x-rays that were done on 2014, 01/05/2016 and on 09/26/2016. The changes he has now are secondary to none resolved pulmonary edema. These are exactly the same changes that he has had before when he has pulmonary edema. The only outlier would be a reaction to amiodarone but he is only been on this for short period of time BNP is elevated at 307. Patient creatinine remains elevated 490 with a BUN of 52 and normal electrolytes. H&H a little bit better at 9.9/31.2. White count 6200 and platelets are 182,000. Will continue to follow his chest x-ray and lab. 11/08/2016. Chest x-ray is essentially unchanged showing increased interstitial markings in all 5 lobes of the lung. Creatinine 6.60 with a BUN of 63. Sodium 134. Potassium 4.7. Magnesium is 3.2. Natruretic peptide is 625. H&H is 9.2/ 28.6. White count is 7078 segs 11 lymphs and 9 mono s. There are no new cultures. Patient is much more alert and oriented today. He says he is breathing much better. Notes from Dr. Valorie Mascorro and Dr. Eliud Brito's have been reviewed 11/09/2016. Dr. Valorie Mascorro and I have discussed the case. We both are suspicious that we are dealing with amiodarone alone. Amiodarone was started this admission and the reconciliation by the player services representative implied that the patient was already on the medicine. The patient is a terrible historian. His is asleep on the cot next to him and is not much help. He says he has been on amiodarone for years. Will stop amiodarone. I am patient change in the patient's prednisone to Solu-Medrol 40 IV push every 8 hours and will monitor his chest x-ray is O2 sats. The patient is on Plaquenil. He has no idea why he takes this medicine. Creatinine is now 7.10 with a BUN of 76. Sodium is 132. Potassium 4.9. White count is 10,886 segs 6.6 lymphs and 5.5 monocytes. There are no eosinophils. H&H is 8.9 with 27.5. 11/10/2016. On 11/09/2016 Dr. Valorie Mascorro and I decided to stop the patient's amiodarone and I started him on a moderate dose of steroids. He had had 5 lobe interstitial infiltrates that did not resolve it is suspected. Today's x-ray is better by close to 50% allowing for the fact that this x-rays a little more penetrated than his previous x-rays. Patient says his breathing is more comfortable. He is lying flat in bed. Patient also has a abnormal ultrasound of the gallbladder. I will check room air ABGs and complete pulmonary function test with pre-and postbronchodilator spirometry to get an approximate baseline of where this patient is so we have some parameters to follow down the road. Patient is possibly for placement of a dialysis line today. There are no new positive cultures. Creatinine is 6.90 with a BUN of 73. Sodium is 132 with a potassium of 5.1. White count is 8700 with 89 segs. H&H is 8.8/27.2 and platelets 260,000. Nitrated peptide is been elevated. 11/11/2016. On 11/10/2016 Dr. Avinash gray and I reviewed the case. Patient had infected gallbladder. Recommendations were to proceed with surgery. Patient's status was likely to go downhill if we did not. Patient is now after surgery. He had a laparoscopic procedure in the gallbladder was not inflamed. He is on the ventilator and he will be moved to the intensive care unit. His chest x- ray today is stable. 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 We will continue his low-dose steroid treatment. ABGs are pending. Dr. Gray has discussed this with the patient's family. Physical exam. Vital signs. See below. Face is symmetrical. Lips and tongue are normal Neck. Symmetrical no meningismus. Lymphatics. No submandibular cervical supraclavicular or epitrochlear adenopathy. Chest is fairly clear. Patient's breathing comfortably lying flat in bed Heart lateral PMI Abdomen. Nontender. Positive bowel sounds Lower extremities. Skin no evidence of chronic venous stasis. No edema. Neurologic. Cranial nerves are intact. Long track motor functions intact. Gait was not tested. Psychiatric. Oriented 3. Very poor historian. Concentration is poor. Patient appears to be low on information. The remainder the physical exam is noncontributory. Plan. 11/01/2016. See my note above. See numbers 1 through 9 below 1. Diuresis. Watch BMP. 2. Replace folic acid 3. Replace iron 4. Blood transfusion 5. Deep venous thrombophlebitis prevention protocol 6. Replace vitamin D 7. Follow-up chest x-ray #8. Repeat echocardiogram. Consider increase of Procardia. Consider Revatio say from a cardiology standpoint. An outlier for pulmonary hypertension would be Apresoline. 9. 11/02/2016. See today's note above. Increase Procardia XL 60 to twice daily . Last Dr. Moseley his opinion concerning Revatio and/or Apresoline 10. 11/03/2016. See today's note above. . 11/04/2016. See today's note above. Considering cutting back significantly on this patient pain medicines. I suspect these are the cause of his altered mental status. We will follow-up his chest x-ray and lab. Dr. Radha mcadams will see the patient this week 12. 11/08/2016. See today's note above. . 11/09/2016. See today's note above. DC amiodarone. Change prednisone to Solu-Medrol. Dr. Mascorro and I have reviewed the case and coordinated our care . 11/10/2016. Off amiodarone. Chest x-ray better. Abnormal gallbladder studies dialysis line possible. Baseline ABGs and complete pulmonary function test with pre-and postbronchodilator spirometry. Follow-up chest x-ray 15. 11/11/2016. See today's note above. Exam (Progress Note) - Constitutional Vitals: Period Temp Pulse Resp BP Sys/Maloney Pulse Ox Last 24 Hr 97.8 F-98.7 F 71-83 16-22 120-137/56-63 94-98 Results - Labs CBC & BMP: 11/11/16 03:25 11/11/16 03:25
--- NOTE | 2016-11-11 09:52 | Operative Note ---
Date of procedure: 11/11/16 Pre-op diagnosis: Acute cholecystitis Post-op diagnosis: same Procedure: Preoperative diagnosis Acute cholecystitis Postoperative diagnosis Same Procedures performed Laparoscopic cholecystectomy Findings Acute cholecystitis was seen. The critical view of safety was obtained prior to placing clips on the cystic duct and cystic artery. Complications None apparent Specimen Gallbladder Anesthesia GETA Blood loss 5 mL Indications Acute cholecystitis the risks, benefits, and alternatives of the operation were discussed with the patient in detail, and the expected outcomes were reviewed. In particular, the risk of bowel injury, liver injury, bile duct leak and bile duct injury, as well as pancreatitis and retained or drop stones were discussed in detail. All the patient's questions were answered. She like to proceed with the operation. Description of procedure The patient was taken to the operating room and transferred to the operating table in the supine position. Pressure points were padded and SCDs were placed to bilateral lower extremities. General endotracheal anesthesia was administered. The abdomen was prepped chlorhexidine and draped sterilely. Preoperative antibiotics were administered, a timeout was performed. The abdomen was entered in a supraumbilical location of the Veress needle. The skin incision was made in the supraumbilical location with a 11 blade scalpel after local anesthetic was administered. Umbilical stalk was grasped with a penetrating towel clip. A Veress needle was used to enter the peritoneal cavity confirmed by double click technique. Aspiration was negative. Saline drop test confirmed intraperitoneal location. The abdomen was insufflated to 15 mmHg with an initial insufflation pressure of 2 mmHg. The Veress needle was removed and a 5 mm trocar was placed blindly. The towel clip was removed. Diagnostic laparoscopy was performed. There is no evidence of Veress needle or trocar injury. The patient was placed in reverse Trendelenburg and left side rolled down position. Under direct visualization, and after local anesthetic was administered, an 11 mm midepigastric trocar and 2 right subcostal 5 mm trochars were placed. The gallbladder was grasped at the fundus and infundibulum. There was acute inflammation of the gallbladder wall with thickening. The cystic plate peritoneum was dissected into the critical view of safety was obtained. The cystic duct and cystic artery were clipped twice initially and once laterally and divided laparoscopically with scissors between clips. Gallbladder was removed from the gallbladder fossa using hook electrocautery. The gallbladder was placed in a Endo Catch retrieval bag through the 11 mm trocar and removed through the trocar with no significant fascial extension of the incision. The gallbladder fossa was suction irrigated until the effluent was clear. There is a small amount of bleeding controlled with spot electrocautery and Surgicel was placed in the wound bed of the liver. The CO2 was released from the abdomen and the trochars were removed. The skin incisions were closed with 4-0 Monocryl subcuticular suture and sterile skin glue. The patient was awakened from anesthesia and transferred to recovery. Postoperative plan Advance diet as tolerated once extubated Pain control Implants: Surgicel Anesthesia: REYMUNDOA, local Surgeon / Physician: Avinash Gray Estimated blood loss: minimal Specimens: other (gallbladder) Disposition: ICU Results - Labs CBC & BMP: 11/11/16 03:25 11/11/16 03:25 Discharge Plan - Discharge Medications No Action Omeprazole [Prilosec] 20 mg PO BID W/MEALS Allopurinol [Zyloprim] 150 mg PO DAILY #30 mg Sodium Bicarb Tab 325 mg PO BID Docusate Sodium Cap [Colace Cap] 100 mg PO BID #60 capsule HYDROcodone/ACETAMIN 10-325 [[place] 10-325] 1 tablet PO Q4H PRN #30 tablet PRN Reason: Pain Moderate (4-7) Metoprolol Tartrate Tab [Lopressor Tab] 25 mg PO BID #60 tablet Furosemide Tab [Lasix Tab] 80 mg PO DAILY #30 tablet - Follow Up or Referral - Forms/Instructions
[2016-11-11] MEDS ORDERED: PROPOFOL 1,000 MG/100 ML BOTTLE IV ONE (09:53)
[2016-11-11] MEDS ORDERED: fentaNYL 100 MCG/2 ML VIAL ONE (10:05)
[2016-11-11] MEDS ORDERED: SEVOFLURANE 1 UNIT/15 MINUTE INH ONE (10:05)
[2016-11-11] MEDS ORDERED: MIDAZOLAM 2 MG/2 ML VIAL ONE (10:06)
[2016-11-11] MEDS: HYDROmorphone 2 MG/1 ML VIAL IV PRN ×4 (10:14→10:29)
[2016-11-11] MEDS ORDERED: HYDROmorphone 2 MG/1 ML VIAL ONE (10:14)
[2016-11-11] MEDS ORDERED: ONDANSETRON 4 MG/2 ML VIAL IV PRN (10:18)
[2016-11-11 10:30] LABS: ABG Base Excess -5.8 MMOL/L (-2.5-2.5); ABG HCO3 19.7 MMOL/L (20-26); ABG Oxygen Saturation 99.7 % (95-100); ABG PCO2 45.7 MM HG (35-48); ABG PH 7.271 (7.35-7.45); ABG TCO2 19.5 MMOL/L (23-27)
--- NOTE | 2016-11-11 10:39 | XRay Report ---
XR chest 1V portable Indication: Intubation. Comparison: Chest x-ray 11/11/2016 Technique: Portable AP chest was performed. Findings: Endotracheal tube terminates at the sternoclavicular junction. Bilateral scattered perihilar airspace opacities superimposed on prominent reticular interstitial markings remain present perhaps with some improvement since comparison. Heart size remains borderline to minimally enlarged. Sternotomy is stable. Bones and soft tissues appear stable. Impression: 1. Endotracheal tube placement as detailed. 2. There is perhaps minimal improvement in bilateral airspace opacities since comparison study. This could reflect improving congestive heart failure/pulmonary edema. 11/11/2016 10:36 AM PROCEDURE INTERPRETED AT [facility] DEPARTMENT OF RADIOLOGY Final Report Signed by: Dr. Pepito Santos
[2016-11-11] MEDS: PROPOFOL 1,000 MG/100 ML BOTTLE IV SCH ×5 (11:30→23:01)
--- NOTE | 2016-11-11 11:37 | Cardiology Progress Note ---
Assessment and Plan (1) Acute exacerbation of chronic obstructive airways disease Status: Acute Assessment and plan: See plan of care listed below. Current Visit: Yes (2) Chronic kidney disease, stage IV (severe) Status: Chronic Assessment and plan: See plan of care listed below. Current Visit: Yes (3) Diabetes mellitus Status: Chronic Assessment and plan: See plan of care listed below. 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 Current Visit: Yes Qualifiers: Hypertension type: essential hypertension Qualified Code(s): I10 - Essential (primary) hypertension (5) Dyslipidemia Status: Chronic Assessment and plan: See plan of care listed below. Current Visit: No (6) Anemia Status: Chronic Assessment and plan: See plan of care listed below. Current Visit: Yes (7) Paroxysmal atrial fibrillation Status: Chronic Assessment and plan: See plan of care listed below. Current Visit: Yes (8) Status post aortic valve replacement with bioprosthetic valve Status: Chronic Assessment and plan: See plan of care listed below. Current Visit: Yes (9) Acute cholecystitis Status: Acute Assessment and plan: See plan of care listed below. 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 Franklin PCP: Dr. Min Summary - Mr. Acosta is a 71-year-old male with a past medical history of diabetes, hypertension, diastolic heart failure, paroxysmal atrial fibrillation (He had been on Coumadin in the past but it was stopped at the [facility] because of noncompliance and difficulty keeping the pro time therapeutic), chronic renal insufficiency, aortic stenosis (now status post tissue aortic valve replacement), history of pulmonary embolism, untreated obstructive sleep apnea and GERD. Patient was admitted to [facility] with recurrent diastolic heart failure. Echo Doppler done September 21, 2016 showed ejection fraction of 60% with grade 3 diastolic dysfunction, moderate dilated left atrium, mitral annular calcification, the aortic tissue valve was sclerotic but open widely. The right ventricle is dilated severe TR PA pressure 65-70 with no effusion. Patient has been anemic throughout this admission. Suspect this is anemia of chronic disease as patient does have history of chronic renal failure. Currently being managed by Dr. Pipo Spaulding. Cardiology was consulted for further assistance in the management of his diastolic heart failure. 11/09/16 Update: Patient was seen and examined in the CCU. He is sedated and ventilated. He is status post cholecystectomy per Dr. Gray. Tolerated well. He continues to wheeze today. Chest x-ray is abnormal and appears to be secondary to amiodarone long. Amiodarone has been discontinued. Creatinine is now 6.7 with a BUN of 85. Sodium is 130. Potassium 5.3. H&H 9.[address] Pipo Spaulding is following. Blood pressure is suboptimally controlled, medications have been adjusted. Patient is currently normal sinus rhythm with heart rates in the 80s without any overt arrhythmias or ectopy noted. Assessment/plan: 1. ACUTE EXACERBATION OF CHRONIC OBSTRUCTIVE AIRWAYS DISEASE - Patient continues to wheeze. Continue breathing treatments and steroid therapy. Management per Dr. Brizuela. Agree with discontinuation of amiodarone. 2. PULMONARY HYPERTENSION - RVSP estimated at 79mmHg plus the right atrial pressure. Continue current plan of care. 3. HYPERTENSION - Patient's blood pressure is suboptimally controlled. I have increased patient's Procardia. Will make further adjustments as needed throughout his hospital stay. 4. ANEMIA - Likely anemia of chronic disease as patient has chronic renal disease. No overt bleeding noted. Continue to monitor closely with Daily CBC. 5. PAROXYSMAL ATRIAL FIBRILLATION - Currently in normal sinus rhythm. Amiodarone has been discontinued as this may be contributing to his lung disease. Suspect that he will develop Afib with RVR as we discontinue the Amiodarone but it will take some time for this to wear off. We will adjust and address this as it arises. 6. CHRONIC RENAL FAILURE - Creatinine is slightly better at 6.7 this morning.. Management per Dr. Pipo Spaulding. Anticipating placement of dialysis catheter at some point. 7. S/P AVR - Stable. Tissue aortic valve. Continue current plan of care. 8. HISTORY OF CVA - Patient is extremely high risk for stroke however he also has very significant anemia and is not a candidate for anticoagulation at this time. 9. ACUTE CHOLECYSTITIS - Patient is now status post cholecystectomy this morning. Further plan and addendum to follow per Dr. Martell. Exam (Progress Note) - Constitutional Vitals: Period Temp Pulse Resp BP Sys/Maloney Pulse Ox Last 24 Hr 97.0 F-98.7 F 71-102 12-23 120-196/56-102 94-100 Exam: General: Sedated and ventilated in the cardiac care unit. HEENT: PERRL, normocephalic, atraumatic. Mucous membranes moist. No jaundice noted. Conjunctiva moist and clear, sclerae anicteric Neck: No JVD/HJR, no thyromegaly or lymphadenopathy noted. No carotid bruit appreciated Cardiac: Regular rate and rhythm. Systolic murmur. Lungs: Wheezing. On the ventilator. Abdomen: Soft, bowel sounds hypoactive. Extremities: No clubbing, cyanosis noted. No edema noted. Upper extremity pulses 2+. Lower extremity pulses 2+. Capillary refill less than 3 seconds. Neuro: Unable to fully assess as patient is sedated on the ventilator. Result/EKG - Labs CBC & BMP: 11/11/16 03:25 11/11/16 03:25 Lab Results: I have reviewed the past 24 hour labs Labs: Laboratory Results - last 24 hr 11/10/16 11/10/16 11/10/16 11:43 16:01 20:47 WBC RBC Hgb Hct MCV MCH MCHC RDW Plt Count MPV Neut % (Auto) Lymph % (Auto) Starr % (Auto) Eos % (Auto) Baso % (Auto) Neut # (Auto) Lymph # (Auto) Starr # (Auto) Eos # (Auto) Baso # (Auto) Total Counted Immature Gran % Nucleated RBC % Immature Gran # Segmented Neutrophils Lymphocytes Monocytes Nucleated RBCs # Platelet Estimate Giant Platelets Hypochromasia Ovalocytes INR PT Patient/Control Mix Circ Anticoag PTT ABG pH 7.439 ABG pCO2 28.1 L ABG pO2 55.0 L ABG HCO3 18.6 L ABG Total CO2 19.5 L ABG O2 Saturation 89.2 L ABG Base Excess -4.5 L FiO2 21.00 Sodium Potassium Chloride Carbon Dioxide Anion Gap BUN Creatinine GFR Calculation BUN/Creatinine Ratio Glucose POC Glucose 353 H 326 H Calculated Osmolality Calcium Magnesium Total Bilirubin Direct Bilirubin Indirect Bilirubin AST ALT Alkaline Phosphatase Total Protein Albumin Lipase 11/11/16 11/11/16 11/11/16 03:25 03:25 03:25 WBC 12.6 H D RBC 3.47 L Hgb 9.1 L Hct 27.7 L MCV 79.8 L MCH 26 L MCHC 32.9 RDW 16.1 Plt Count 308 MPV 10.5 Neut % (Auto) 89.3 H Lymph % (Auto) 4.0 L Starr % (Auto) 4.4 Eos % (Auto) 0.0 Baso % (Auto) 0.1 Neut # (Auto) 11.3 H Lymph # (Auto) 0.5 L Starr # (Auto) 0.6 Eos # (Auto) 0.0 Baso # (Auto) 0.0 Total Counted 100 Immature Gran % 2.2 Nucleated RBC % 0.0 Immature Gran # 0.28 Segmented Neutrophils 95 H Lymphocytes 2 L Monocytes 3 Nucleated RBCs # 0.00 Platelet Estimate Adequate Giant Platelets Few Hypochromasia Slight Ovalocytes Slight INR PT Patient/Control Mix Circ Anticoag PTT ABG pH ABG pCO2 ABG pO2 ABG HCO3 ABG Total CO2 ABG O2 Saturation ABG Base Excess FiO2 Sodium 130 L Potassium 5.3 H Chloride 95 L Carbon Dioxide 23 Anion Gap 17.3 H BUN 85 H D Creatinine 6.70 H GFR Calculation 10 BUN/Creatinine Ratio 12.00 Glucose 276 H POC Glucose Calculated Osmolality 295.8 Calcium 8.3 L Magnesium 3.0 H Total Bilirubin 0.80 Direct Bilirubin 0.30 H Indirect Bilirubin 0.5 AST 68 H ALT 65 H Alkaline Phosphatase 251 H Total Protein 7.3 Albumin 3.4 Lipase 347.0 11/11/16 11/11/16 11/11/16 03:25 07:25 10:27 WBC RBC Hgb Hct MCV MCH MCHC RDW Plt Count MPV Neut % (Auto) Lymph % (Auto) Starr % (Auto) Eos % (Auto) Baso % (Auto) Neut # (Auto) Lymph # (Auto) Starr # (Auto) Eos # (Auto) Baso # (Auto) Total Counted Immature Gran % Nucleated RBC % Immature Gran # Segmented Neutrophils Lymphocytes Monocytes Nucleated RBCs # Platelet Estimate Giant Platelets Hypochromasia Ovalocytes INR 1.0 PT Patient/Control Mix 11.1 Circ Anticoag PTT 32.0 ABG pH 7.271 L ABG pCO2 45.7 ABG pO2 452.0 H ABG HCO3 19.7 L ABG Total CO2 19.5 L ABG O2 Saturation 99.7 ABG Base Excess -5.8 L FiO2 Sodium Potassium Chloride Carbon Dioxide Anion Gap BUN Creatinine GFR Calculation BUN/Creatinine Ratio Glucose POC Glucose 334 H Calculated Osmolality Calcium Magnesium Total Bilirubin Direct Bilirubin Indirect Bilirubin AST ALT Alkaline Phosphatase Total Protein Albumin Lipase
--- NOTE | 2016-11-11 12:13 | Hospitalist Progress Note ---
Assessment and Plan (1) Acute cholecystitis Status: Acute Assessment and plan: The patient's nausea may be due to cholecystitis. The patient has had laparoscopic cholecystectomy by Dr. Gray. He remains on mechanical ventilation in the critical care area for now. I anticipate extubation tomorrow morning. Current Visit: Yes (2) Acute exacerbation of chronic obstructive airways disease Status: Acute Current Visit: Yes (3) Diastolic CHF Status: Acute Current Visit: Yes Qualifiers: Congestive heart failure chronicity: acute on chronic Qualified Code(s): I50.33 - Acute on chronic diastolic (congestive) heart failure (4) Chronic kidney disease, stage IV (severe) Status: Chronic Current Visit: Yes Hospitalist: Subjective Interval history: The patient had laparoscopic cholecystectomy this morning and is now recovering in critical care area on mechanical ventilation. Hemodynamics are stable. I reviewed the plan of care with progress to date with his and daughter at the bedside. Exam - Constitutional Vitals: Period Temp Pulse Resp BP Sys/Maloney Pulse Ox Last 24 Hr 97.0 F-98.7 F 71-102 12-23 120-196/56-102 94-100 Exam: Constitutional System: Mild distress. No tremulousness. Now orally intubated and mechanically ventilated Head: Normocephalic, atraumatic. Ears, Nose and Throat System: No evidence of Otitis or Mastoiditis. No epistaxis or discharge Eyes System: Pupils equal, round, and reactive. Extraocular muscles intact. Neck: Supple, without adenopathy, No jugular venous distention. No thyromegaly , neck mass, or prior surgery apparent. Respiratory System: Chest few rales in bases to auscultation. Cardiovascular System: Heart with regular rate and rhythm. No murmur. GI System: Abdomen soft Musculoskeletal System: limbs with no pedal edema. Full distal pulses. Results - Labs CBC & BMP: 11/11/16 03:25 11/11/16 03:25 Lab Results: I have reviewed the past 24 hour labs
[2016-11-11 12:15] LABS: Apearance,Urine CLEAR (Clear); Bacteria,Urine Occasional /HPF (Few); Bilirubin,Urine Negative (Negative); Blood, Urine Negative (Negative); Glucose,Urine (UA) 50 mg/dL (Negative); Ketones,Urine 5 mg/dL (Negative); Nitrite,Urine Negative (Negative); Protein,Urine 100 MG/DL; RBC,Urine 1 /HPF (0-4); Squamous Epithelial Cell,Urine Occasional /HPF (0-10); Urine Color Yellow (Yellow); Urine Specific Gravity 1.016 (1.001-1.035); Urine Urobilinogen < 2.0 EU/DL (0.2-1.0); WBC,Urine 1 /HPF (0-6)
--- NOTE | 2016-11-11 12:17 | Nephrology Progress Note ---
Nephrology - PN: Subj Interval history: He was seen in the ICU just after having laparoscopic cholecystectomy. He tolerated the procedure well without hypotension. He is currently sedated on the ventilator. Exam (PN)-Nephrology - Vital Signs Vital signs: Period Temp Pulse Resp BP Sys/Maloney Pulse Ox Last 24 Hr 97.0 F-98.7 F 71-102 12-23 120-196/56-102 94-100 Exam: Gen.: Sedated on ventilator ENT: Intubated Neck: Supple. No JVD or bruit. Cardiovascular: Regular rate and rhythm. No murmur rub or gallop Lungs: Clear Abdomen: Soft. Nontender. Positive bowel sounds. No organomegaly Extremities: No edema - Lab 11/11/16 03:25 11/11/16 03:25 Most recent lab results ABG pH 7.271 (7.35-7.45) L 11/11/16 10:27 ABG pCO2 45.7 MM HG (35-48) 11/11/16 10:27 ABG pO2 452.0 MM HG (80-95) H 11/11/16 10:27 ABG HCO3 19.7 MMOL/L (20-26) L 11/11/16 10:27 ABG O2 Saturation 99.7 % (95-100) 11/11/16 10:27 Calcium 8.3 MG/DL (8.5-10.1) L 11/11/16 03:25 Magnesium 3.0 MG/DL (1.8-2.4) H 11/11/16 03:25 Assessment and Plan (1) Chronic kidney disease, stage IV (severe) Status: Chronic Assessment and plan: 71-year-old man admitted with: * CRF stage IV. Baseline creatinine upper threes * ARF on CRF. Creatinine is slightly improved today. Renal function and urine output should be watched closely postop * Cholecystitis. Status post laparoscopic cholecystectomy today * Diastolic CHF. His weight is variable but has decreased with diuresis * COPD. No wheezing today * Pulmonary hypertension * Prosthetic aortic valve * Diabetes mellitus * Hypertension * Anemia. Posttransfusion Current Visit: Yes (2) Diastolic CHF Status: Acute Current Visit: Yes Qualifiers: Congestive heart failure chronicity: acute on chronic Qualified Code(s): I50.33 - Acute on chronic diastolic (congestive) heart failure (3) Pulmonary edema Status: Acute Current Visit: Yes (4) Chronic obstructive pulmonary disease Status: Acute Current Visit: Yes Qualifiers: COPD type: unspecified COPD Qualified Code(s): J44.9 - Chronic obstructive pulmonary disease, unspecified (5) Diabetes mellitus Status: Chronic Current Visit: Yes Qualifiers: Diabetes mellitus type: type 2 Diabetes mellitus complication status: with kidney complications Diabetes mellitus complication detail: with chronic kidney disease Diabetes mellitus salvage determiner insulin use: with salvage determiner use Chronic kidney disease stage: stage 4 (severe) Qualified Code(s): E11.22 - Type 2 diabetes mellitus with diabetic chronic kidney disease; N18.4 - Chronic kidney disease, stage 4 (severe); Z79.4 - [facility] (current) use of insulin (6) Hypertension Status: Chronic Current Visit: Yes Qualifiers: Hypertension type: essential hypertension Qualified Code(s): I10 - Essential (primary) hypertension
[2016-11-11 12:35] LABS: ABG HCO3 21.7 MMOL/L (20-26); ABG Oxygen Saturation 99.3 % (95-100); ABG PCO2 42.4 MM HG (35-48); ABG PH 7.327 (7.35-7.45)
[2016-11-11 12:36] LABS: ABG PO2 533.1 MM HG (80-95)
--- NOTE | 2016-11-11 12:36 | Anesthesia Post-Op ---
Anesthesia Post OP - Post Ansesthetic Evaluation Patient seen in post op: Yes Resp: other (on vent in ICU) CV: other (BP still high being treated) Mental: other (sedated while on vent) Temp: within normal limits [id number]: within normal limits Nausea and Vomiting: within normal limits Pain: other (being treated)
[2016-11-11] MEDS: SODIUM CHLORIDE 0.9% 250 ML IV SCH ×2 (14:33→21:27)
[2016-11-11] MEDS ORDERED: LACTATED RINGERS 1,000 ML IV ONE (15:00)
--- NOTE | 2016-11-11 15:02 | Event Note ---
I saw Mr. Acosta earlier today. All multiple times throughout the day I have tried to edit and a me and Ms. Means's note however there appears to be some problem with the E HR she is no longer in the note but each time I try to sign on it says updates are currently in progress this report cannot be edited until updates are complete. This has been going on since approximately 1130 or 1145. I saw the patient in the ICU following his surgery he remains on the ventilator 100% FiO2. Please see Ms. Means's note and connected this note to that note. The patient is sedated had an uneventful laparoscopic surgery is my understanding. His lungs sound clear he has some scant wheezing but is much better than before cardioversion was rates a regular rhythm without gallop or rub abdominal exam soft. Labs are as a Ms. Means's note. There her assessment and plan as in her note.
--- NOTE | 2016-11-11 16:07 | Pulmonology Progress Note ---
Pulmonary - PN: Subj Interval history: This is a 71-year-old white male. I saw him in pulmonary consultation 2016. My impressions were. 1. Acute congestive heart failure. 2. Aortic valve replacement 2012 3. COPD. Past history tobacco abuse 3.1 Anemia. Folic acid level is low and vitamin B12 level is normal. #4 chronic renal failure 5. Low calcium and low albumin. 6. Insulin-dependent diabetes mellitus with a history of diabetic ketoacidosis 7. Hyperlipidemia 8. History of atrial fib 9. Symptoms suggestive of obstructive sleep apnea 10. Mild pulmonary hypertension. Etiology undetermined. Note elevated left ventricular filling blood pressures on echocardiogram. Previous echocardiogram was obtained when the patient was in congestive heart failure. Obstructive sleep apnea could be a contributory factor. 11. Past history of deep venous thrombophlebitis and pulmonary emboli. No evidence of either found during initial workup this admission 12. See past history 11/01/2016. Chest x-rays are pending. I have ordered the EPA and lateral for today and tomorrow. Patient still has shortness of breath and he complains of chest pain with exertion. To me this chest pain is worrisome for cardiac angina. Pulmonary hypertension can sometimes cause similar pain. Last admission the patient's pulmonary artery pressures were 65-70 mmHg. This echocardiogram was obtained while the patient was in congestive heart failure. I am going to order a repeat echocardiogram for comparison pulmonary artery pressures. Patient's on Procardia XL 60 which is a good medicine for pulmonary hypertension. We could go higher. We could add Revatio if it appears safe from a cardiology standpoint. Occasionally Apresoline works for pulmonary hypertension. Apresoline could be added if needed to help with cardiac output. Patient's H&H is 7.6/23.9. He is low folic acid. His B12 is normal. He also is low on iron. I have started replacement with iron and also folic acid. His vitamin D level is low and vitamin D replacement has been started. I am going to transfuse the patient with a unit of blood today and if he tolerates this well will probably should transfuse another unit tomorrow. This will certainly improve his oxygen carrying capacity. BNP is pending. Note sedimentation rate is 96. Doppler venograms were negative for deep venous thrombophlebitis. Ventilation perfusion lung scan showed no perfusion defects. 11/02/2016. Today's x-ray shows mild residual congestive heart failure. BNP remains elevated at 556. Noted creatinine is 4.60 with a BUN of 52 and this may falsely elevate his BNP. Patient's vitamin D is low and will order replacement. Folic acid is also low. B12 is in the normal range of 438. Posttransfusion H&H is 8.4/26.9. Iron saturation is also low. Iron has not been started. Patient has some persistent nausea. Nares are positive for MRSA. Repeat echocardiogram done 10/29/2016 shows ejection fraction 65% with grade 3 diastolic dysfunction and moderate biatrial enlargement. There is mild atrial regurgitation. Trace of aortic insufficiency. Pulmonary artery pressures are estimated to be 79 mmHg. Patient's on Procardia XL 60 and I will increase this to 120 mg daily. We did consider Revatio if cardiology feels this is safe. Would start with 20 mg every 8 hours. Alternatively we could try Apresoline 25 3 times daily which occasionally helps and may help with the patient's cardiac output. Will ask for Dr. Bueno's comment. 11/03/2016. Today's chest x-ray continues to show mild pulmonary edema. 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 CBC is stable. The rest of today's lab is pending. Dr. Lydia Ca sleep medicine note has been reviewed and I agree with his plans. Patient's was apparently asleep on the bed. She moves her foot but she never turned over or participate in our conversation today. Santosh Courtney nurse practitioner was present. Patient's had some slight fever related to blood transfusions. I do not see anything so far that looks like amiodarone along. Amiodarone was only recently added. Procardia XL was increased to 60 mg twice a day on 11/02/2016 an attempt to treat the patient's pulmonary hypertension 11/04/2016. This patient had altered mental status and had a normal CT of the head yesterday. I reviewed his medicines from last night. He received [place] 10. 4 mg of morphine and transfers seen. He is a little slow on the mental uptake this morning and I suspect the answer lies in his medicines. This patient has had heart failure that has not quite resolved. His chest x-ray has not been done today. See my note from 11/03/2016. I reviewed the number of old x-rays at his baseline x-ray should looked like x-rays that were done on 2014, 01/05/2016 and on 09/26/2016. The changes he has now are secondary to none resolved pulmonary edema. These are exactly the same changes that he has had before when he has pulmonary edema. The only outlier would be a reaction to amiodarone but he is only been on this for short period of time BNP is elevated at 307. Patient creatinine remains elevated 490 with a BUN of 52 and normal electrolytes. H&H a little bit better at 9.9/31.2. White count 6200 and platelets are 182,000. Will continue to follow his chest x-ray and lab. 11/08/2016. Chest x-ray is essentially unchanged showing increased interstitial markings in all 5 lobes of the lung. Creatinine 6.60 with a BUN of 63. Sodium 134. Potassium 4.7. Magnesium is 3.2. Natruretic peptide is 625. H&H is 9.2/ 28.6. White count is 7078 segs 11 lymphs and 9 mono s. There are no new cultures. Patient is much more alert and oriented today. He says he is breathing much better. Notes from Dr. Valorie Mascorro and Dr. Eliud Brito's have been reviewed 11/09/2016. Dr. Valorie Mascorro and I have discussed the case. We both are suspicious that we are dealing with amiodarone alone. Amiodarone was started this admission and the reconciliation by the paraprofessional education assistant implied that the patient was already on the medicine. The patient is a terrible historian. His is asleep on the cot next to him and is not much help. He says he has been on amiodarone for years. Will stop amiodarone. I am patient change in the patient's prednisone to Solu-Medrol 40 IV push every 8 hours and will monitor his chest x-ray is O2 sats. The patient is on Plaquenil. He has no idea why he takes this medicine. Creatinine is now 7.10 with a BUN of 76. Sodium is 132. Potassium 4.9. White count is 10,886 segs 6.6 lymphs and 5.5 monocytes. There are no eosinophils. H&H is 8.9 with 27.5. 11/10/2016. On 11/09/2016 Dr. Valorie Mascorro and I decided to stop the patient's amiodarone and I started him on a moderate dose of steroids. He had had 5 lobe interstitial infiltrates that did not resolve it is suspected. Today's x-ray is better by close to 50% allowing for the fact that this x-rays a little more penetrated than his previous x-rays. Patient says his breathing is more comfortable. He is lying flat in bed. Patient also has a abnormal ultrasound of the gallbladder. I will check room air ABGs and complete pulmonary function test with pre-and postbronchodilator spirometry to get an approximate baseline of where this patient is so we have some parameters to follow down the road. Patient is possibly for placement of a dialysis line today. There are no new positive cultures. Creatinine is 6.90 with a BUN of 73. Sodium is 132 with a potassium of 5.1. White count is 8700 with 89 segs. H&H is 8.8/27.2 and platelets 260,000. Nitrated peptide is been elevated. 11/11/2016. On 11/10/2016 Dr. Avinash gray and I reviewed the case. Patient had infected gallbladder. Recommendations were to proceed with surgery. Patient's status was likely to go downhill if we did not. Patient is now after surgery. He had a laparoscopic procedure in the gallbladder was not inflamed. He is on the ventilator and he will be moved to the intensive care unit. His chest x- ray today is stable. 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 We will continue his low-dose steroid treatment. ABGs are pending. Dr. Gray has discussed this with the patient's family. 11/11/2016. 1500. Patient's postop and stable. His chest x-ray stable. He has very good oxygenation. Early tomorrow morning will start weaning procedures with CPAP 4 hour to an hour and a half he does well will go with the T-tube for approximately an hour and then check his ABGs and decide if he is strong enough to come off the ventilator. 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 Follow-up x-rays lab and ABGs have been ordered per Physical exam. Vital signs. See below. Face is symmetrical. Lips and tongue are normal Neck. Symmetrical no meningismus. Lymphatics. No submandibular cervical supraclavicular or epitrochlear adenopathy. Chest is fairly clear. Patient's breathing comfortably lying flat in bed Heart lateral PMI Abdomen. Nontender. Positive bowel sounds Lower extremities. Skin no evidence of chronic venous stasis. No edema. Neurologic. Cranial nerves are intact. Long track motor functions intact. Gait was not tested. Psychiatric. Oriented 3. Very poor historian. Concentration is poor. Patient appears to be low on information. The remainder the physical exam is noncontributory. Plan. 11/01/2016. See my note above. See numbers 1 through 9 below 1. Diuresis. Watch BMP. 2. Replace folic acid 3. Replace iron 4. Blood transfusion 5. Deep venous thrombophlebitis prevention protocol 6. Replace vitamin D 7. Follow-up chest x-ray #8. Repeat echocardiogram. Consider increase of Procardia. Consider Revatio say from a cardiology standpoint. An outlier for pulmonary hypertension would be Apresoline. 9. 11/02/2016. See today's note above. Increase Procardia XL 60 to twice daily . Last Dr. Moseley his opinion concerning Revatio and/or Apresoline 10. 11/03/2016. See today's note above. . 11/04/2016. See today's note above. Considering cutting back significantly on this patient pain medicines. I suspect these are the cause of his altered mental status. We will follow-up his chest x-ray and lab. Dr. Radha mcadams will see the patient this week 12. 11/08/2016. See today's note above. . 11/09/2016. See today's note above. DC amiodarone. Change prednisone to Solu-Medrol. Dr. Mascorro and I have reviewed the case and coordinated our care . 11/10/2016. Off amiodarone. Chest x-ray better. Abnormal gallbladder studies dialysis line possible. Baseline ABGs and complete pulmonary function test with pre-and postbronchodilator spirometry. Follow-up chest x-ray 15. 11/11/2016. See today's note above. Exam (Progress Note) - Constitutional Vitals: Period Temp Pulse Resp BP Sys/Maloney Pulse Ox Last 24 Hr 97.0 F-98.7 F 60-102 12-25 108-198/35-102 94-100 Results - Labs CBC & BMP: 11/11/16 03:25 11/11/16 03:25
[2016-11-11] MEDS ORDERED: SUCCINYLCHOLINE 200 MG/10 ML VIAL ONE (17:30)
[2016-11-11] MEDS: HEPARIN 5,000 UNIT/1 ML VIAL SUBCUT SCH (21:31)
[2016-11-12] MEDS: methylPREDNISolone SOD SUC 40 MG/1 ML VIAL IV SCH ×3 (01:05→17:17)
[2016-11-12] MEDS: PROPOFOL 1,000 MG/100 ML BOTTLE IV SCH ×6 (02:46→23:41)
[2016-11-12 03:05] LABS: ABG Base Excess -1.9 MMOL/L (-2.5-2.5); ABG HCO3 22.9 MMOL/L (20-26); ABG Oxygen Saturation 98.4 % (95-100); ABG PCO2 39.2 MM HG (35-48); ABG PH 7.385 (7.35-7.45); ABG TCO2 24.1 MMOL/L (23-27)
[2016-11-12 03:31] LABS: Basophils % 0.1 % (0.0-0.8); Hematocrit 26.9 VOL% (42.0-52.0); Hemoglobin 8.7 GM/DL (14.0-18.0); Immature Granulocytes % 2.9 %; Immature Granulocytes Absolute 0.37 #; Lymphocytes # 0.4 10*3/uL (1.4-4.0); Lymphocytes % 2.8 % (21.2-54.2); Mean Corpuscular HGB Conc 32.3 GM/DL (32-36); Mean Corpuscular Hemoglobin 26 PG (27-34); Mean Corpuscular Volume 81.8 FL (87-102); Mean Platelet Volume 9.9 FL (9.6-12.0); Monocytes # 0.5 10*3/uL (0.11-0.8); Monocytes % 3.6 % (1.7-12.7); Neutrophils # 11.5 10*3/uL (1.4-7.4); Neutrophils % 90.6 % (38.7-73.9); Platelet Count 266 T/CUMM (130-400); Red Blood Count 3.29 MC/CUMM (3.8-5.5); Red Cell Distribution Width 15.9 % (9.3-17.3); White Blood Count 12.7 T/CUMM (4-12)
[2016-11-12 03:57] LABS: Magnesium 2.9 MG/DL (1.8-2.4); Osmolality,Calculated 298.5 MOS/KG (273-304); Potassium 5.6 MMOL/L (3.5-5.1)
[2016-11-12 05:03] LABS: Lymphocytes 2 % (20-55); Segmented Neutrophils 96 % (50-85); Total Cells Counted 100
[2016-11-12 05:04] LABS: Ovalocytes 2+; Platelet Estimate Normal
[2016-11-12 05:05] LABS: Hypochromasia 1+
--- NOTE | 2016-11-12 07:02 | Cardiology Progress Note ---
Assessment and Plan (1) Hypertension Status: Chronic Assessment and plan: As per HPI add clonidine Current Visit: Yes Qualifiers: Hypertension type: essential hypertension Qualified Code(s): I10 - Essential (primary) hypertension (2) Anemia Status: Chronic Current Visit: No (3) Renal failure Status: Chronic Current Visit: No Qualifiers: Renal failure chronicity: chronic (4) Acute exacerbation of chronic obstructive airways disease Status: Acute Current Visit: No (5) Paroxysmal atrial fibrillation Status: Chronic Assessment and plan: Patient is very high risk for ischemic events he has had a previous stroke is also extremely high risk for bleeding with anemia and history of labile INRs. If atrial fibrillation returns I would suspect he would be best served with 2-1/ 2 mg Eliquis twice daily watch cautiously. He is currently in sinus rhythm. Current Visit: Yes (6) S/P AVR (aortic valve replacement) Status: Chronic Current Visit: Yes (7) CVA (cerebral vascular accident) Status: Acute Assessment and plan: Patient is extremely high risk for stroke however he also has very significant anemia. Very difficult situation Current Visit: Yes Qualifiers: CVA mechanism: embolism (8) Pulmonary hypertension Status: Acute Assessment and plan: RVSP estimated at 79mmHg plus the right atrial pressure Current Visit: Yes Cardiology - PN: Subj Interval history: Mr. Acosta remains on the ventilator. His blood pressure continues to rise. He is on high-dose hydralazine, nondilated. In class calcium channel jim as well as a low-dose beta-jim. His pressure may be up from them escalating steroid dose. He may benefit from thiazid diuretics however he has significant renal failure. I would like something short acting in this acute setting I will use clonidine 0.1 twice daily. He is in sinus rhythm. ET tube is in place ET tube is in place Exam (Progress Note) - Constitutional Vitals: Period Temp Pulse Resp BP Sys/Maloney Pulse Ox Last 24 Hr 97.0 F-98.4 F 58-102 12-29 108-198/35-102 97-100 General appearance: morbidly obese - Head Head exam: Present: other - Respiratory Respiratory exam: Present: clear to auscultation bilaterally (No wheezing on the ventilator) - Cardiovascular Cardiovascular exam: Present: regular rate and rhythm - GI/Abdominal GI/Abdominal exam: Present: other (His abdomen is protuberant as it was prior to surgery he has high-pitched but present bowel sounds) - Extremities Exam Extremities exam: Present: normal inspection (He has no edema) - Neurological Exam Neurological exam: Present: other (He is sedated) - Psychiatric Psychiatric exam: Present: other (He is sedated) - Skin Skin exam: Present: normal color, warm, dry Result/EKG - Labs CBC & BMP: 11/12/16 02:45 11/12/16 03:00 Labs: Laboratory Results - last 24 hr 11/11/16 11/11/16 11/11/16 07:25 10:27 11:56 WBC RBC Hgb Hct MCV MCH MCHC RDW Plt Count MPV Neut % (Auto) Lymph % (Auto) Marshall % (Auto) Eos % (Auto) Baso % (Auto) Neut # (Auto) Lymph # (Auto) Marshall # (Auto) Eos # (Auto) Baso # (Auto) Total Counted Immature Gran % Nucleated RBC % Immature Gran # Segmented Neutrophils Lymphocytes Monocytes Nucleated RBCs # Platelet Estimate Hypochromasia Ovalocytes ABG pH 7.271 L ABG pCO2 45.7 ABG pO2 452.0 H ABG HCO3 19.7 L ABG Total CO2 19.5 L ABG O2 Saturation 99.7 ABG Base Excess -5.8 L Sodium Potassium Chloride Carbon Dioxide Anion Gap BUN Creatinine GFR Calculation BUN/Creatinine Ratio Glucose POC Glucose 334 H Calculated Osmolality Calcium Magnesium B-Natriuretic Peptide Urine Color Yellow Urine Appearance Clear Urine pH 5.0 Ur Specific [place] 1.016 Urine Protein 100 Urine Glucose (UA) 50 Urine Ketones 5 Urine Blood Negative Urine Nitrate Negative Urine Bilirubin Negative Urine Urobilinogen < 2.0 H Urine Leukocytes Negative Urine RBC 1 Urine WBC 1 Ur Squamous Epith Cells Occasional Urine Bacteria Occasional Ur Culture Indicated? Not indicated 11/11/16 11/11/16 11/11/16 12:10 12:20 17:42 WBC RBC Hgb Hct MCV MCH MCHC RDW Plt Count MPV Neut % (Auto) Lymph % (Auto) Marshall % (Auto) Eos % (Auto) Baso % (Auto) Neut # (Auto) Lymph # (Auto) Marshall # (Auto) Eos # (Auto) Baso # (Auto) Total Counted Immature Gran % Nucleated RBC % Immature Gran # Segmented Neutrophils Lymphocytes Monocytes Nucleated RBCs # Platelet Estimate Hypochromasia Ovalocytes ABG pH 7.327 L ABG pCO2 42.4 ABG pO2 533.1 H ABG HCO3 21.7 ABG Total CO2 23.0 ABG O2 Saturation 99.3 ABG Base Excess -4.0 L Sodium Potassium Chloride Carbon Dioxide Anion Gap BUN Creatinine GFR Calculation BUN/Creatinine Ratio Glucose POC Glucose 334 H 281 H Calculated Osmolality Calcium Magnesium B-Natriuretic Peptide Urine Color Urine Appearance Urine pH Ur Specific [place] Urine Protein Urine Glucose (UA) Urine Ketones Urine Blood Urine Nitrate Urine Bilirubin Urine Urobilinogen Urine Leukocytes Urine RBC Urine WBC Ur Squamous Epith Cells Urine Bacteria Ur Culture Indicated? 11/11/16 11/12/16 11/12/16 19:33 02:45 02:45 WBC 12.7 H RBC 3.29 L Hgb 8.7 L Hct 26.9 L MCV 81.8 L MCH 26 L MCHC 32.3 RDW 15.9 Plt Count 266 MPV 9.9 Neut % (Auto) 90.6 H Lymph % (Auto) 2.8 L Marshall % (Auto) 3.6 Eos % (Auto) 0.0 Baso % (Auto) 0.1 Neut # (Auto) 11.5 H Lymph # (Auto) 0.4 L Marshall # (Auto) 0.5 Eos # (Auto) 0.0 Baso # (Auto) 0.0 Total Counted 100 Immature Gran % 2.9 Nucleated RBC % 0.0 Immature Gran # 0.37 Segmented Neutrophils 96 H Lymphocytes 2 L Monocytes 2 Nucleated RBCs # 0.00 Platelet Estimate Normal Hypochromasia 1+ Ovalocytes 2+ ABG pH ABG pCO2 ABG pO2 ABG HCO3 ABG Total CO2 ABG O2 Saturation ABG Base Excess Sodium Potassium Chloride Carbon Dioxide Anion Gap BUN Creatinine GFR Calculation BUN/Creatinine Ratio Glucose POC Glucose 259 H Calculated Osmolality Calcium Magnesium B-Natriuretic Peptide 242 H Urine Color Urine Appearance Urine pH Ur Specific [place] Urine Protein Urine Glucose (UA) Urine Ketones Urine Blood Urine Nitrate Urine Bilirubin Urine Urobilinogen Urine Leukocytes Urine RBC Urine WBC Ur Squamous Epith Cells Urine Bacteria Ur Culture Indicated? 11/12/16 11/12/16 02:45 03:00 WBC RBC Hgb Hct MCV MCH MCHC RDW Plt Count MPV Neut % (Auto) Lymph % (Auto) Marshall % (Auto) Eos % (Auto) Baso % (Auto) Neut # (Auto) Lymph # (Auto) Marshall # (Auto) Eos # (Auto) Baso # (Auto) Total Counted Immature Gran % Nucleated RBC % Immature Gran # Segmented Neutrophils Lymphocytes Monocytes Nucleated RBCs # Platelet Estimate Hypochromasia Ovalocytes ABG pH 7.385 ABG pCO2 39.2 ABG pO2 141.0 H ABG HCO3 22.9 ABG Total CO2 24.1 ABG O2 Saturation 98.4 ABG Base Excess -1.9 Sodium 132 L Potassium 5.6 H Chloride 98 Carbon Dioxide 22 Anion Gap 17.6 H BUN 89 H Creatinine 6.60 H GFR Calculation 11 BUN/Creatinine Ratio 13.00 Glucose 240 H POC Glucose Calculated Osmolality 298.5 Calcium 8.0 L Magnesium 2.9 H B-Natriuretic Peptide Urine Color Urine Appearance Urine pH Ur Specific [place] Urine Protein Urine Glucose (UA) Urine Ketones Urine Blood Urine Nitrate Urine Bilirubin Urine Urobilinogen Urine Leukocytes Urine RBC Urine WBC Ur Squamous Epith Cells Urine Bacteria Ur Culture Indicated?
--- NOTE | 2016-11-12 08:13 | Event Note ---
11/12/2016 Patient is stable at this time blood pressures running a little high and his creatinine is 6 with a potassium of 5.3. Apparently he is a renal insufficiency patient that nephrology has been following at this time. Abdomen is soft few bowel sounds present NG tube drainage is minimal. His hematocrit is 27 this morning. He remains on the ventilator at this time seems stable. Will maintain present level of care
[2016-11-12] MEDS: ALBUTEROL 2.5 MG/3 ML NEB RESP TX SCH ×3 (08:24→21:02)
[2016-11-12] MEDS: PANTOPRAZOLE 40 MG TABLET PO SCH (08:30)
--- NOTE | 2016-11-12 08:38 | Pulmonology Progress Note ---
Pulmonary - PN: Subj Interval history: This is a 71-year-old white male. I saw him in pulmonary consultation 2016. My impressions were. 1. Acute congestive heart failure. 2. Aortic valve replacement 2012 3. COPD. Past history tobacco abuse 3.1 Anemia. Folic acid level is low and vitamin B12 level is normal. #4 chronic renal failure 5. Low calcium and low albumin. 6. Insulin-dependent diabetes mellitus with a history of diabetic ketoacidosis 7. Hyperlipidemia 8. History of atrial fib 9. Symptoms suggestive of obstructive sleep apnea 10. Mild pulmonary hypertension. Etiology undetermined. Note elevated left ventricular filling blood pressures on echocardiogram. Previous echocardiogram was obtained when the patient was in congestive heart failure. Obstructive sleep apnea could be a contributory factor. 11. Past history of deep venous thrombophlebitis and pulmonary emboli. No evidence of either found during initial workup this admission 12. See past history 11/01/2016. Chest x-rays are pending. I have ordered the EPA and lateral for today and tomorrow. Patient still has shortness of breath and he complains of chest pain with exertion. To me this chest pain is worrisome for cardiac angina. Pulmonary hypertension can sometimes cause similar pain. Last admission the patient's pulmonary artery pressures were 65-70 mmHg. This echocardiogram was obtained while the patient was in congestive heart failure. I am going to order a repeat echocardiogram for comparison pulmonary artery pressures. Patient's on Procardia XL 60 which is a good medicine for pulmonary hypertension. We could go higher. We could add Revatio if it appears safe from a cardiology standpoint. Occasionally Apresoline works for pulmonary hypertension. Apresoline could be added if needed to help with cardiac output. Patient's H&H is 7.6/23.9. He is low folic acid. His B12 is normal. He also is low on iron. I have started replacement with iron and also folic acid. His vitamin D level is low and vitamin D replacement has been started. I am going to transfuse the patient with a unit of blood today and if he tolerates this well will probably should transfuse another unit tomorrow. This will certainly improve his oxygen carrying capacity. BNP is pending. Note sedimentation rate is 96. Doppler venograms were negative for deep venous thrombophlebitis. Ventilation perfusion lung scan showed no perfusion defects. 11/02/2016. Today's x-ray shows mild residual congestive heart failure. BNP remains elevated at 556. Noted creatinine is 4.60 with a BUN of 52 and this may falsely elevate his BNP. Patient's vitamin D is low and will order replacement. Folic acid is also low. B12 is in the normal range of 438. Posttransfusion H&H is 8.4/26.9. Iron saturation is also low. Iron has not been started. Patient has some persistent nausea. Nares are positive for MRSA. Repeat echocardiogram done 10/29/2016 shows ejection fraction 65% with grade 3 diastolic dysfunction and moderate biatrial enlargement. There is mild atrial regurgitation. Trace of aortic insufficiency. Pulmonary artery pressures are estimated to be 79 mmHg. Patient's on Procardia XL 60 and I will increase this to 120 mg daily. We did consider Revatio if cardiology feels this is safe. Would start with 20 mg every 8 hours. Alternatively we could try Apresoline 25 3 times daily which occasionally helps and may help with the patient's cardiac output. Will ask for Dr. Bueno's comment. 11/03/2016. Today's chest x-ray continues to show mild pulmonary edema. 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 CBC is stable. The rest of today's lab is pending. Dr. Lydia Ca sleep medicine note has been reviewed and I agree with his plans. Patient's was apparently asleep on the bed. She moves her foot but she never turned over or participate in our conversation today. Santosh Courtney nurse practitioner was present. Patient's had some slight fever related to blood transfusions. I do not see anything so far that looks like amiodarone along. Amiodarone was only recently added. Procardia XL was increased to 60 mg twice a day on 11/02/2016 an attempt to treat the patient's pulmonary hypertension 11/04/2016. This patient had altered mental status and had a normal CT of the head yesterday. I reviewed his medicines from last night. He received [place] 10. 4 mg of morphine and transfers seen. He is a little slow on the mental uptake this morning and I suspect the answer lies in his medicines. This patient has had heart failure that has not quite resolved. His chest x-ray has not been done today. See my note from 11/03/2016. I reviewed the number of old x-rays at his baseline x-ray should looked like x-rays that were done on 2014, 01/05/2016 and on 09/26/2016. The changes he has now are secondary to none resolved pulmonary edema. These are exactly the same changes that he has had before when he has pulmonary edema. The only outlier would be a reaction to amiodarone but he is only been on this for short period of time BNP is elevated at 307. Patient creatinine remains elevated 490 with a BUN of 52 and normal electrolytes. H&H a little bit better at 9.9/31.2. White count 6200 and platelets are 182,000. Will continue to follow his chest x-ray and lab. 11/08/2016. Chest x-ray is essentially unchanged showing increased interstitial markings in all 5 lobes of the lung. Creatinine 6.60 with a BUN of 63. Sodium 134. Potassium 4.7. Magnesium is 3.2. Natruretic peptide is 625. H&H is 9.2/ 28.6. White count is 7078 segs 11 lymphs and 9 mono s. There are no new cultures. Patient is much more alert and oriented today. He says he is breathing much better. Notes from Dr. Valorie Mascorro and Dr. Eliud Brito's have been reviewed 11/09/2016. Dr. Valorie Mascorro and I have discussed the case. We both are suspicious that we are dealing with amiodarone alone. Amiodarone was started this admission and the reconciliation by the banking officer implied that the patient was already on the medicine. The patient is a terrible historian. His is asleep on the cot next to him and is not much help. He says he has been on amiodarone for years. Will stop amiodarone. I am patient change in the patient's prednisone to Solu-Medrol 40 IV push every 8 hours and will monitor his chest x-ray is O2 sats. The patient is on Plaquenil. He has no idea why he takes this medicine. Creatinine is now 7.10 with a BUN of 76. Sodium is 132. Potassium 4.9. White count is 10,886 segs 6.6 lymphs and 5.5 monocytes. There are no eosinophils. H&H is 8.9 with 27.5. 11/10/2016. On 11/09/2016 Dr. Valorie Mascorro and I decided to stop the patient's amiodarone and I started him on a moderate dose of steroids. He had had 5 lobe interstitial infiltrates that did not resolve it is suspected. Today's x-ray is better by close to 50% allowing for the fact that this x-rays a little more penetrated than his previous x-rays. Patient says his breathing is more comfortable. He is lying flat in bed. Patient also has a abnormal ultrasound of the gallbladder. I will check room air ABGs and complete pulmonary function test with pre-and postbronchodilator spirometry to get an approximate baseline of where this patient is so we have some parameters to follow down the road. Patient is possibly for placement of a dialysis line today. There are no new positive cultures. Creatinine is 6.90 with a BUN of 73. Sodium is 132 with a potassium of 5.1. White count is 8700 with 89 segs. H&H is 8.8/27.2 and platelets 260,000. Nitrated peptide is been elevated. 11/11/2016. On 11/10/2016 Dr. Avinash gray and I reviewed the case. Patient had infected gallbladder. Recommendations were to proceed with surgery. Patient's status was likely to go downhill if we did not. Patient is now after surgery. He had a laparoscopic procedure in the gallbladder was not inflamed. He is on the ventilator and he will be moved to the intensive care unit. His chest x- ray today is stable. 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 We will continue his low-dose steroid treatment. ABGs are pending. Dr. Gray has discussed this with the patient's family. 11/11/2016. 1500. Patient's postop and stable. His chest x-ray stable. He has very good oxygenation. Early tomorrow morning will start weaning procedures with CPAP 4 hour to an hour and a half he does well will go with the T-tube for approximately an hour and then check his ABGs and decide if he is strong enough to come off the ventilator. 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 Follow-up x-rays lab and ABGs have been ordered per 11/12/2016. Earlier today the patient did not do well with weaning high having back on CPAP now and he is doing well and I will go to a T-tube and will see how he does from there. His chest x-ray is stable he still has bilateral interstitial disease and with alveolar filling that I think it is related to amiodarone lung. ABGs are stable. Natruretic peptide is fallen to 242. Sodium is 132. Potassium is 3.5. Creatinine is 6.60 with a BUN of 89. White count is 12,700 with 91% segs H&H is 8.7/29.9 and 9 platelets are 266,000. Patient has done well postop. Physical exam. Vital signs. See below. Face is symmetrical. Lips and tongue are normal Neck. Symmetrical no meningismus. Lymphatics. No submandibular cervical supraclavicular or epitrochlear adenopathy. Chest is fairly clear. Patient's breathing comfortably lying flat in bed Heart lateral PMI Abdomen. Nontender. Positive bowel sounds Lower extremities. Skin no evidence of chronic venous stasis. No edema. Neurologic. Cranial nerves are intact. Long track motor functions intact. Gait was not tested. Psychiatric. Oriented 3. Very poor historian. Concentration is poor. Patient appears to be low on information. The remainder the physical exam is noncontributory. Plan. 11/01/2016. See my note above. See numbers 1 through 9 below 1. Diuresis. Watch BMP. 2. Replace folic acid 3. Replace iron 4. Blood transfusion 5. Deep venous thrombophlebitis prevention protocol 6. Replace vitamin D 7. Follow-up chest x-ray #8. Repeat echocardiogram. Consider increase of Procardia. Consider Revatio say from a cardiology standpoint. An outlier for pulmonary hypertension would be Apresoline. . 11/02/2016. See today's note above. Increase Procardia XL 60 to twice daily . Last Dr. Moseley his opinion concerning Revatio and/or Apresoline . 11/03/2016. See today's note above. . 11/04/2016. See today's note above. Considering cutting back significantly on this patient pain medicines. I suspect these are the cause of his altered mental status. We will follow-up his chest x-ray and lab. Dr. Radha mcadams will see the patient this week . 11/08/2016. See today's note above. 11/09/2016. See today's note above. DC amiodarone. Change prednisone to Solu-Medrol. Dr. Mascorro and I have reviewed the case and coordinated our care . 11/10/2016. Off amiodarone. Chest x-ray better. Abnormal gallbladder studies dialysis line possible. Baseline ABGs and complete pulmonary function test with pre-and postbronchodilator spirometry. Follow-up chest x-ray . 11/11/2016. See today's note above. 16. 11/12/2016. See today's note above Exam (Progress Note) - Constitutional Vitals: Period Temp Pulse Resp BP Sys/Maloney Pulse Ox Last 24 Hr 97.0 F-98.4 F 58-102 12-29 108-198/35-102 97-100 Results - Labs CBC & BMP: 11/12/16 02:45 11/12/16 03:00
[2016-11-12] MEDS: INSULIN LISPRO 100 UNIT/ML SUBCUT SCH ×4 (08:50→21:23)
[2016-11-12 10:09] LABS: ABG Base Excess -5.1 MMOL/L (-2.5-2.5); ABG HCO3 22.1 MMOL/L (20-26); ABG Oxygen Saturation 81.1 % (95-100); ABG PCO2 50.6 MM HG (35-48); ABG PH 7.258 (7.35-7.45); ABG PO2 50.7 MM HG (80-95); ABG TCO2 23.6 MMOL/L (23-27)
[2016-11-12] MEDS: COLCHICINE 0.6 MG TABLET PO SCH (10:22)
[2016-11-12] MEDS: HYDROXYCHLOROQUINE 200 MG TABLET PO SCH (10:23)
[2016-11-12] MEDS: ALLOPURINOL 300 MG TABLET PO SCH (10:23)
[2016-11-12] MEDS: FOLIC ACID 0.4 MG TABLET PO SCH (10:25)
[2016-11-12] MEDS: ASPIRIN EC 81 MG TABLET PO SCH (10:25)
[2016-11-12] MEDS: METOPROLOL TARTRATE 25 MG TABLET PO SCH ×2 (10:25→21:23)
[2016-11-12] MEDS: CHOLECALCIFEROL 1,000 UNIT TABLET PO SCH (10:25)
[2016-11-12] MEDS: cloNIDine 0.1 MG TABLET PO SCH ×2 (10:25→21:35)
[2016-11-12] MEDS: ATORVASTATIN 40 MG TABLET PO SCH (10:27)
[2016-11-12] MEDS: NIFEdipine 10 MG CAPSULE PO SCH ×3 (10:28→21:23)
[2016-11-12] MEDS: MUPIROCIN 2% OINT 22 GM TUBE TOP SCH ×2 (10:29→21:23)
[2016-11-12] MEDS: DOCUSATE SODIUM 100 MG CAPSULE PO SCH ×2 (10:29→21:23)
[2016-11-12] MEDS: SODIUM CHLORIDE 0.9% 250 ML IV SCH (10:50)
[2016-11-12] MEDS: FAMOTIDINE INJ 40 MG in SODIUM CHLORIDE 0.9% 100 ML IV SCH (11:03)
[2016-11-12] MEDS: HEPARIN 5,000 UNIT/1 ML VIAL SUBCUT SCH ×2 (11:09→21:24)
--- NOTE | 2016-11-12 12:55 | Nephrology Progress Note ---
Nephrology - PN: Subj Interval history: MEGAN on CKD, followed by Dr Spaulding. Creatinine 6.6, K 5.6, bicarb 22, eGFR 11cc/ min , Mg 2.9. S/P lap shady yesterday. Resp acidosis on ABG this am, c/w his PMHx COPD. Exam (PN)-Nephrology - Vital Signs Vital signs: Period Temp Pulse Resp BP Sys/Maloney Pulse Ox Last 24 Hr 97.2 F-98.4 F 58-109 12-29 108-197/35-82 97-100 - General Appearance General appearance: obese, sedated on ventilator, intubated EENT: ATNC, PERRL, mucous membranes moist Neck: no JVD, no thyromegaly Respiratory: no kyphosis, clear Cardiology: no murmurs, no rub, no edema Gastrointestinal: normoactive bowel sounds, no tenderness Integumentary: no rash, warm and dry Neurologic: no focal deficit, obtunded Musculoskeletal: no deformities, no erythema - Lab 11/12/16 02:45 11/12/16 03:00 Most recent lab results ABG pH 7.258 (7.35-7.45) L 11/12/16 10:00 ABG pCO2 50.6 MM HG (35-48) H 11/12/16 10:00 ABG pO2 50.7 MM HG (80-95) L 11/12/16 10:00 ABG HCO3 22.1 MMOL/L (20-26) 11/12/16 10:00 ABG O2 Saturation 81.1 % (95-100) L 11/12/16 10:00 Calcium 8.0 MG/DL (8.5-10.1) L 11/12/16 03:00 Magnesium 2.9 MG/DL (1.8-2.4) H 11/12/16 03:00 Assessment and Plan (1) Acute kidney injury superimposed on chronic kidney disease Problem details: No acute indication for renal replacement therapy at this time. Status: Acute Current Visit: Yes (2) Acidosis Problem details: Start maintenance IVFs with acetate to help with hyperkalemia. Observe for worsening of CO2 retention and paradoxical worsening of resp acidosis. Status: Acute Current Visit: Yes (3) Acute CVA (cerebrovascular accident) Status: Acute Current Visit: No (4) Hyperkalemia Status: Acute Current Visit: No (5) S/P AVR (aortic valve replacement) Status: Chronic Current Visit: Yes
--- NOTE | 2016-11-12 13:37 | XRay Report ---
Exam: XR chest 1V portable Indication: Intubated, respiratory failure Comparison study: Prior chest radiograph 6-17 Findings: Endotracheal tube is in similar position. Median sternotomy wiring is again noted. Esophagogastric tube is now noted in place. This travels below the left hemidiaphragm is not well visualized and the distal termination is not definitely identified. Cardiac silhouette is mildly enlarged, similar to prior. There is mild perihilar and basilar interstitial opacities which are slightly improved from prior likely representing interstitial edema. There is no pneumothorax. No significant pleural effusion is identified. Osseous structures are stable. Impression: Similar mild cardiomegaly with slight improved aeration within the perihilar regions and lung bases with residual basilar atelectasis and/or infiltrates suggested. Stable position of endotracheal tube. Esophagogastric tube likely within the stomach. PROCEDURE INTERPRETED AT [facility] DEPARTMENT OF RADIOLOGY Final Report Signed by: Brent Gregory
--- NOTE | 2016-11-12 14:48 | Hospitalist Progress Note ---
Assessment and Plan (1) Acute cholecystitis Status: Acute Assessment and plan: The patient is postoperative day #1 laparoscopic cholecystectomy. The patient continues on postoperative pathway wean from the ventilator as his breathing allows. We continue treatment of chronic kidney disease stage IV and diastolic congestive heart failure. Current Visit: Yes (2) Acute exacerbation of chronic obstructive airways disease Status: Acute Current Visit: Yes (3) Diastolic CHF Status: Acute Current Visit: Yes Qualifiers: Congestive heart failure chronicity: acute on chronic Qualified Code(s): I50.33 - Acute on chronic diastolic (congestive) heart failure (4) Chronic kidney disease, stage IV (severe) Status: Chronic Current Visit: Yes Hospitalist: Subjective Interval history: Postoperative day #1 from laparoscopic cholecystectomy. The patient was evaluated this morning and seemed to be on the ventilator. He was tolerating T- tube at high respiratory rate. Exam - Constitutional Vitals: Period Temp Pulse Resp BP Sys/Maloney Pulse Ox Last 24 Hr 97.2 F-98.4 F 58-109 12-29 121-197/39-82 97-100 Exam: Constitutional System: Mild distress. No tremulousness. Now orally intubated and was on T-tube trial when I evaluated him this morning Head: Normocephalic, atraumatic. Ears, Nose and Throat System: No evidence of Otitis or Mastoiditis. No epistaxis or discharge Eyes System: Pupils equal, round, and reactive. Extraocular muscles intact. Neck: Supple, without adenopathy, No jugular venous distention. No thyromegaly , neck mass, or prior surgery apparent. Respiratory System: Chest few rales in bases to auscultation. Cardiovascular System: Heart with regular rate and rhythm. No murmur. Results - Labs CBC & BMP: 11/12/16 02:45 11/12/16 03:00 Lab Results: I have reviewed the past 24 hour labs
[2016-11-12] MEDS: SODIUM ACETATE 100 MEQ in DEXTROSE 5% 1,000 ML IV SCH (15:00)
[2016-11-13] MEDS: ALBUTEROL 2.5 MG/3 ML NEB RESP TX SCH ×4 (01:12→19:36)
[2016-11-13] MEDS: methylPREDNISolone SOD SUC 40 MG/1 ML VIAL IV SCH ×3 (01:30→16:16)
[2016-11-13] MEDS: PROPOFOL 1,000 MG/100 ML BOTTLE IV SCH ×4 (03:01→17:19)
[2016-11-13] MEDS: SODIUM ACETATE 100 MEQ in DEXTROSE 5% 1,000 ML IV SCH ×3 (04:19→16:16)
[2016-11-13 04:33] LABS: Basophils % 0.1 % (0.0-0.8); Hematocrit 26.8 VOL% (42.0-52.0); Immature Granulocytes % 5.8 %; Immature Granulocytes Absolute 0.55 #; Lymphocytes # 0.4 10*3/uL (1.4-4.0); Lymphocytes % 4.3 % (21.2-54.2); Mean Corpuscular HGB Conc 33.6 GM/DL (32-36); Mean Corpuscular Hemoglobin 27 PG (27-34); Mean Corpuscular Volume 79.8 FL (87-102); Mean Platelet Volume 10.1 FL (9.6-12.0); Monocytes # 0.3 10*3/uL (0.11-0.8); Monocytes % 3.6 % (1.7-12.7); Neutrophils # 8.2 10*3/uL (1.4-7.4); Neutrophils % 86.2 % (38.7-73.9); Platelet Count 259 T/CUMM (130-400); Red Blood Count 3.36 MC/CUMM (3.8-5.5); Red Cell Distribution Width 16.1 % (9.3-17.3); White Blood Count 9.5 T/CUMM (4-12)
[2016-11-13 05:00] LABS: Anisocytosis 1+; Band Neutrophils 3 % (0-10); Lymphocytes 7 % (20-55); Macrocytosis 1+; Metamyelocytes 5 %; Platelet Estimate Normal; Polychromasia 1+; Segmented Neutrophils 82 % (50-85); Total Cells Counted 100
[2016-11-13 05:03] LABS: Calcium 8.3 MG/DL (8.5-10.1); Magnesium 2.9 MG/DL (1.8-2.4); Osmolality,Calculated 301.5 MOS/KG (273-304)
[2016-11-13] MEDS: SODIUM CHLORIDE 0.9% 250 ML IV SCH ×2 (06:16→11:29)
[2016-11-13 07:30] LABS: Pt O2 Delivery Device CPAP
[2016-11-13 07:32] LABS: ABG Base Excess -3.1 MMOL/L (-2.5-2.5); ABG HCO3 21.8 MMOL/L (20-26); ABG Oxygen Saturation 99.6 % (95-100); ABG PCO2 37.4 MM HG (35-48); ABG PH 7.372 (7.35-7.45); ABG TCO2 20.1 MMOL/L (23-27)
--- NOTE | 2016-11-13 08:41 | Cardiology Progress Note ---
Assessment and Plan (1) Hypertension Status: Chronic Assessment and plan: As per HPI increase clonidine. Current Visit: Yes Qualifiers: Hypertension type: essential hypertension Qualified Code(s): I10 - Essential (primary) hypertension (2) Anemia Status: Chronic Current Visit: No (3) Renal failure Status: Chronic Current Visit: No Qualifiers: Renal failure chronicity: chronic (4) Acute exacerbation of chronic obstructive airways disease Status: Acute Current Visit: No (5) Paroxysmal atrial fibrillation Status: Chronic Assessment and plan: Patient is very high risk for ischemic events he has had a previous stroke is also extremely high risk for bleeding with anemia and history of labile INRs. If atrial fibrillation returns I would suspect he would be best served with 2.5 mg Eliquis twice daily watch cautiously. He is currently in sinus rhythm. Current Visit: Yes (6) S/P AVR (aortic valve replacement) Status: Chronic Current Visit: Yes (7) CVA (cerebral vascular accident) Status: Acute Assessment and plan: Patient is extremely high risk for stroke however he also has very significant anemia. Very difficult situation Current Visit: Yes Qualifiers: CVA mechanism: embolism (8) Pulmonary hypertension Status: Acute Assessment and plan: RVSP estimated at 79mmHg plus the right atrial pressure Current Visit: Yes Cardiology - PN: Subj Interval history: This gentleman is postop day 2 now status post cholecystectomy. He remains on the ventilator. Pulmonary is weaning. Cardiovascular status has been stable. He has not had any atrial fibrillation. His blood pressure remains high made adjustments to his medications yesterday now that he is on the ventilator. I will increase his clonidine today. He is on 2 vasodilators. Of course he cannot be on CANDY or ARB given his tenuous renal function is chronically severe. He is marginally close to hemodialysis. He has atrial fibrillation and his amiodarone has been stopped for concerns that may be contributing to his pulmonary status and he is not a good anticoagulation candidate for major bleeding in the past and also very labile INRs. Hopefully he will stay in sinus rhythm. I think intubation and mechanical ventilation has made this easier to control. Exam (Progress Note) - Constitutional Vitals: Period Temp Pulse Resp BP Sys/Maloney Pulse Ox Last 24 Hr 97.3 F-97.9 F 53-109 14-26 128-200/47-73 95-100 General appearance: morbidly obese - Head Head exam: Present: normal inspection - Eye Eye exam: Present: EOMI - ENT ENT exam: Present: other (ET tube in place) - Respiratory Respiratory exam: Present: rhonchi (Upper airway noise I hear no wheezing today. He had a significant amount of wheezing off the ventilator) - Cardiovascular Cardiovascular exam: Present: regular rate and rhythm (He has an S4) - GI/Abdominal GI/Abdominal exam: Present: hypoactive bowel sounds, soft (His abdomen is protuberant his bowel sounds are slightly better today but they remain hypoactive) - Extremities Exam Extremities exam: Absent: edema - Back Exam Back exam: Present: normal inspection - Neurological Exam Neurological exam: Present: other (Sedated) - Psychiatric Psychiatric exam: Present: other (Sedated) - Skin Skin exam: Present: normal color, warm, dry Result/EKG - Labs CBC & BMP: 11/13/16 04:29 11/13/16 04:29 Labs: Laboratory Results - last 24 hr 11/12/16 11/12/16 11/12/16 07:28 10:00 11:13 WBC RBC Hgb Hct MCV MCH MCHC RDW Plt Count MPV Neut % (Auto) Lymph % (Auto) Kimble % (Auto) Eos % (Auto) Baso % (Auto) Neut # (Auto) Lymph # (Auto) Kimble # (Auto) Eos # (Auto) Baso # (Auto) Total Counted Immature Gran % Nucleated RBC % Immature Gran # Segmented Neutrophils Band Neutrophils Lymphocytes Monocytes Metamyelocytes Nucleated RBCs # Platelet Estimate Polychromasia Anisocytosis Macrocytosis ABG pH 7.258 L ABG pCO2 50.6 H ABG pO2 50.7 L ABG HCO3 22.1 ABG Total CO2 23.6 ABG O2 Saturation 81.1 L ABG Base Excess -5.1 L FiO2 Sodium Potassium Chloride Carbon Dioxide Anion Gap BUN Creatinine GFR Calculation BUN/Creatinine Ratio Glucose POC Glucose 256 H 204 H Calculated Osmolality Calcium Magnesium B-Natriuretic Peptide 11/12/16 11/12/16 11/13/16 15:25 19:56 04:29 WBC 9.5 RBC 3.36 L Hgb 9.0 L Hct 26.8 L MCV 79.8 L MCH 27 MCHC 33.6 RDW 16.1 Plt Count 259 MPV 10.1 Neut % (Auto) 86.2 H Lymph % (Auto) 4.3 L Kimble % (Auto) 3.6 Eos % (Auto) 0.0 Baso % (Auto) 0.1 Neut # (Auto) 8.2 H Lymph # (Auto) 0.4 L Kimble # (Auto) 0.3 Eos # (Auto) 0.0 Baso # (Auto) 0.0 Total Counted 100 Immature Gran % 5.8 Nucleated RBC % 0.0 Immature Gran # 0.55 Segmented Neutrophils 82 Band Neutrophils 3 Lymphocytes 7 L Monocytes 3 Metamyelocytes 5 Nucleated RBCs # 0.00 Platelet Estimate Normal Polychromasia 1+ Anisocytosis 1+ Macrocytosis 1+ ABG pH ABG pCO2 ABG pO2 ABG HCO3 ABG Total CO2 ABG O2 Saturation ABG Base Excess FiO2 Sodium Potassium Chloride Carbon Dioxide Anion Gap BUN Creatinine GFR Calculation BUN/Creatinine Ratio Glucose POC Glucose 241 H 294 H Calculated Osmolality Calcium Magnesium B-Natriuretic Peptide 11/13/16 11/13/16 11/13/16 04:29 04:29 07:18 WBC RBC Hgb Hct MCV MCH MCHC RDW Plt Count MPV Neut % (Auto) Lymph % (Auto) Kimble % (Auto) Eos % (Auto) Baso % (Auto) Neut # (Auto) Lymph # (Auto) Kimble # (Auto) Eos # (Auto) Baso # (Auto) Total Counted Immature Gran % Nucleated RBC % Immature Gran # Segmented Neutrophils Band Neutrophils Lymphocytes Monocytes Metamyelocytes Nucleated RBCs # Platelet Estimate Polychromasia Anisocytosis Macrocytosis ABG pH ABG pCO2 ABG pO2 ABG HCO3 ABG Total CO2 ABG O2 Saturation ABG Base Excess FiO2 Sodium 132 L Potassium 5.0 Chloride 96 L Carbon Dioxide 23 Anion Gap 18.0 H BUN 83 H Creatinine 5.20 H GFR Calculation 15 BUN/Creatinine Ratio 15.00 Glucose 325 H POC Glucose 338 H Calculated Osmolality 301.5 Calcium 8.3 L Magnesium 2.9 H B-Natriuretic Peptide 344 H 11/13/16 07:20 WBC RBC Hgb Hct MCV MCH MCHC RDW Plt Count MPV Neut % (Auto) Lymph % (Auto) Kimble % (Auto) Eos % (Auto) Baso % (Auto) Neut # (Auto) Lymph # (Auto) Kimble # (Auto) Eos # (Auto) Baso # (Auto) Total Counted Immature Gran % Nucleated RBC % Immature Gran # Segmented Neutrophils Band Neutrophils Lymphocytes Monocytes Metamyelocytes Nucleated RBCs # Platelet Estimate Polychromasia Anisocytosis Macrocytosis ABG pH 7.372 ABG pCO2 37.4 ABG pO2 150.0 H ABG HCO3 21.8 ABG Total CO2 20.1 L ABG O2 Saturation 99.6 ABG Base Excess -3.1 L FiO2 40.00 Sodium Potassium Chloride Carbon Dioxide Anion Gap BUN Creatinine GFR Calculation BUN/Creatinine Ratio Glucose POC Glucose Calculated Osmolality Calcium Magnesium B-Natriuretic Peptide
--- NOTE | 2016-11-13 09:00 | Event Note ---
11/13/2016. Patient remains on the ventilator at this time. Creatinine is slightly better today hematocrit is down 26. Generally he appears to be stable but it appears to be running out of IV sites and good PICC line may be of value. Abdomen seems soft bowel sounds are present he is having bowel movements. There is some question whether he had a little vomiting or some increased secretions last night but there is minimal NG tube drainage. May be worthwhile trying to feedings on him and see how he does and how he tolerates this at this time.
--- NOTE | 2016-11-13 09:17 | XRay Report ---
Exam: XR chest 1V portable Indication: Intubated, respiratory failure Comparison study: 11/12/2016 radiograph Findings: Endotracheal tube and esophagogastric tube are in similar positions. Diffuse interstitial opacities in the perihilar regions and lung bases appear slightly decreased from prior. There is no pneumothorax. No significant pleural effusion is identified. Osseous structures appear stable.. Impression: Minimal decrease in perihilar and basilar interstitial opacities may represent resolving interstitial edema changes. Stable position of endotracheal and esophagogastric tubes. Otherwise, no significant change. PROCEDURE INTERPRETED AT [facility] DEPARTMENT OF RADIOLOGY Final Report Signed by: Brent Gregory
[2016-11-13] MEDS: INSULIN LISPRO 100 UNIT/ML SUBCUT SCH ×4 (09:33→23:07)
[2016-11-13] MEDS: ALLOPURINOL 300 MG TABLET PO SCH (09:34)
[2016-11-13] MEDS: NIFEdipine 10 MG CAPSULE PO SCH ×3 (09:34→23:06)
[2016-11-13] MEDS: HEPARIN 5,000 UNIT/1 ML VIAL SUBCUT SCH ×2 (09:34→23:07)
[2016-11-13] MEDS: ASPIRIN EC 81 MG TABLET PO SCH (09:34)
[2016-11-13] MEDS: MUPIROCIN 2% OINT 22 GM TUBE TOP SCH ×2 (09:35→23:07)
[2016-11-13] MEDS: FOLIC ACID 0.4 MG TABLET PO SCH (09:35)
[2016-11-13] MEDS: ATORVASTATIN 40 MG TABLET PO SCH (09:35)
[2016-11-13] MEDS: DOCUSATE SODIUM 100 MG CAPSULE PO SCH ×2 (09:35→23:06)
[2016-11-13] MEDS: METOPROLOL TARTRATE 25 MG TABLET PO SCH ×2 (09:35→23:08)
[2016-11-13] MEDS: CHOLECALCIFEROL 1,000 UNIT TABLET PO SCH (09:35)
--- NOTE | 2016-11-13 11:11 | Hospitalist Progress Note ---
Assessment and Plan (1) Acute cholecystitis Status: Acute Assessment and plan: The patient is postoperative day #2 laparoscopic cholecystectomy. The patient continues on postoperative pathway wean from the ventilator as his breathing allows. We continue treatment of chronic kidney disease stage IV and diastolic congestive heart failure. Current Visit: Yes (2) Acute exacerbation of chronic obstructive airways disease Status: Acute Current Visit: Yes (3) Diastolic CHF Status: Acute Current Visit: Yes Qualifiers: Congestive heart failure chronicity: acute on chronic Qualified Code(s): I50.33 - Acute on chronic diastolic (congestive) heart failure (4) Chronic kidney disease, stage IV (severe) Status: Chronic Current Visit: Yes Hospitalist: Subjective Interval history: Mr. Acosta is sedated and resting quietly on ventilator. He was successful with CPAP trials yesterday but less successful with T-tube. I reviewed the case with Dr. Rinaldi and we decided to have the patient rest today and consider extubation tomorrow. Dr. Argueta has ordered cautious tube feedings. Exam - Constitutional Vitals: Period Temp Pulse Resp BP Sys/Maloney Pulse Ox Last 24 Hr 97.3 F-97.9 F 53-90 14-26 128-200/47-73 95-100 Exam: Constitutional System: Mild distress. No tremulousness. Now orally intubated and mechanically ventilated. Head: Normocephalic, atraumatic. Ears, Nose and Throat System: No evidence of Otitis or Mastoiditis. No epistaxis or discharge Eyes System: Pupils equal, round, and reactive. Extraocular muscles intact. Neck: Supple, without adenopathy, No jugular venous distention. No thyromegaly , neck mass, or prior surgery apparent. Respiratory System: Chest few rales in bases to auscultation. Cardiovascular System: Heart with regular rate and rhythm. No murmur. Results - Labs CBC & BMP: 11/13/16 04:29 11/13/16 04:29 Lab Results: I have reviewed the past 24 hour labs
[2016-11-13] MEDS: INSULIN GLARGINE 100 UNIT/ML SUBCUT SCH (11:43)
--- NOTE | 2016-11-13 13:02 | Nephrology Progress Note ---
Nephrology - PN: Subj Interval history: No acute overnight events. Resting on vent. K improved to 5.0, bicarb improved, creatinine 5.2 from 6.6. Mg 2.9. Exam (PN)-Nephrology - Vital Signs Vital signs: Period Temp Pulse Resp BP Sys/Maloney Pulse Ox Last 24 Hr 97.3 F-97.9 F 53-87 14-26 128-200/47-73 95-100 - General Appearance General appearance: obese, sedated on ventilator, intubated EENT: ATNC, PERRL, mucous membranes moist Neck: JVD, supple Respiratory: clear Cardiology: no murmurs, no rub Gastrointestinal: hypoactive bowel sounds, obese Integumentary: no rash, warm and dry Musculoskeletal: no deformities, no erythema - Lab 11/13/16 04:29 11/13/16 04:29 Most recent lab results ABG pH 7.372 (7.35-7.45) 11/13/16 07:20 ABG pCO2 37.4 MM HG (35-48) 11/13/16 07:20 ABG pO2 150.0 MM HG (80-95) H 11/13/16 07:20 ABG HCO3 21.8 MMOL/L (20-26) 11/13/16 07:20 ABG O2 Saturation 99.6 % (95-100) 11/13/16 07:20 Calcium 8.3 MG/DL (8.5-10.1) L 11/13/16 04:29 Magnesium 2.9 MG/DL (1.8-2.4) H 11/13/16 04:29 Assessment and Plan (1) Acute kidney injury superimposed on chronic kidney disease Problem details: No acute indication for renal replacement therapy at this time. Status: Acute Current Visit: Yes (2) Acidosis Problem details: Continue IVFs. Check urinary indices for volume status. Ordered. Status: Acute Current Visit: Yes (3) Acute CVA (cerebrovascular accident) Status: Acute Current Visit: No (4) Hyperkalemia Status: Acute Current Visit: No (5) S/P AVR (aortic valve replacement) Status: Chronic Current Visit: Yes
[2016-11-13] MEDS: FAMOTIDINE INJ 40 MG in SODIUM CHLORIDE 0.9% 100 ML IV SCH (14:12)
--- NOTE | 2016-11-13 14:34 | Pulmonology Progress Note ---
Pulmonary - PN: Subj Interval history: This is a 71-year-old white male. I saw him in pulmonary consultation 2016. My impressions were. 1. Acute congestive heart failure. 2. Aortic valve replacement 2012 3. COPD. Past history tobacco abuse 3.1 Anemia. Folic acid level is low and vitamin B12 level is normal. #4 chronic renal failure 5. Low calcium and low albumin. 6. Insulin-dependent diabetes mellitus with a history of diabetic ketoacidosis 7. Hyperlipidemia 8. History of atrial fib 9. Symptoms suggestive of obstructive sleep apnea 10. Mild pulmonary hypertension. Etiology undetermined. Note elevated left ventricular filling blood pressures on echocardiogram. Previous echocardiogram was obtained when the patient was in congestive heart failure. Obstructive sleep apnea could be a contributory factor. 11. Past history of deep venous thrombophlebitis and pulmonary emboli. No evidence of either found during initial workup this admission 12. See past history 11/01/2016. Chest x-rays are pending. I have ordered the EPA and lateral for today and tomorrow. Patient still has shortness of breath and he complains of chest pain with exertion. To me this chest pain is worrisome for cardiac angina. Pulmonary hypertension can sometimes cause similar pain. Last admission the patient's pulmonary artery pressures were 65-70 mmHg. This echocardiogram was obtained while the patient was in congestive heart failure. I am going to order a repeat echocardiogram for comparison pulmonary artery pressures. Patient's on Procardia XL 60 which is a good medicine for pulmonary hypertension. We could go higher. We could add Revatio if it appears safe from a cardiology standpoint. Occasionally Apresoline works for pulmonary hypertension. Apresoline could be added if needed to help with cardiac output. Patient's H&H is 7.6/23.9. He is low folic acid. His B12 is normal. He also is low on iron. I have started replacement with iron and also folic acid. His vitamin D level is low and vitamin D replacement has been started. I am going to transfuse the patient with a unit of blood today and if he tolerates this well will probably should transfuse another unit tomorrow. This will certainly improve his oxygen carrying capacity. BNP is pending. Note sedimentation rate is 96. Doppler venograms were negative for deep venous thrombophlebitis. Ventilation perfusion lung scan showed no perfusion defects. 11/02/2016. Today's x-ray shows mild residual congestive heart failure. BNP remains elevated at 556. Noted creatinine is 4.60 with a BUN of 52 and this may falsely elevate his BNP. Patient's vitamin D is low and will order replacement. Folic acid is also low. B12 is in the normal range of 438. Posttransfusion H&H is 8.4/26.9. Iron saturation is also low. Iron has not been started. Patient has some persistent nausea. Nares are positive for MRSA. Repeat echocardiogram done 10/29/2016 shows ejection fraction 65% with grade 3 diastolic dysfunction and moderate biatrial enlargement. There is mild atrial regurgitation. Trace of aortic insufficiency. Pulmonary artery pressures are estimated to be 79 mmHg. Patient's on Procardia XL 60 and I will increase this to 120 mg daily. We did consider Revatio if cardiology feels this is safe. Would start with 20 mg every 8 hours. Alternatively we could try Apresoline 25 3 times daily which occasionally helps and may help with the patient's cardiac output. Will ask for Dr. Bueno's comment. 11/03/2016. Today's chest x-ray continues to show mild pulmonary edema. I reviewed a lot of the patient's old x-rays and x-rays done 05/14/2015, 01/05/2016 and 09/26/2016 are public service representative chest x-rays when he is out of congestive heart failure. CBC is stable. The rest of today's lab is pending. Dr. Lydia Ca sleep medicine note has been reviewed and I agree with his plans. Patient's was apparently asleep on the bed. She moves her foot but she never turned over or participate in our conversation today. Santosh Courtney nurse practitioner was present. Patient's had some slight fever related to blood transfusions. I do not see anything so far that looks like amiodarone along. Amiodarone was only recently added. Procardia XL was increased to 60 mg twice a day on 11/02/2016 an attempt to treat the patient's pulmonary hypertension 11/04/2016. This patient had altered mental status and had a normal CT of the head yesterday. I reviewed his medicines from last night. He received [place] 10. 4 mg of morphine and transfers seen. He is a little slow on the mental uptake this morning and I suspect the answer lies in his medicines. This patient has had heart failure that has not quite resolved. His chest x-ray has not been done today. See my note from 11/03/2016. I reviewed the number of old x-rays at his baseline x-ray should looked like x-rays that were done on 2014, 01/05/2016 and on 09/26/2016. The changes he has now are secondary to none resolved pulmonary edema. These are exactly the same changes that he has had before when he has pulmonary edema. The only outlier would be a reaction to amiodarone but he is only been on this for short period of time BNP is elevated at 307. Patient creatinine remains elevated 490 with a BUN of 52 and normal electrolytes. H&H a little bit better at 9.9/31.2. White count 6200 and platelets are 182,000. Will continue to follow his chest x-ray and lab. 11/08/2016. Chest x-ray is essentially unchanged showing increased interstitial markings in all 5 lobes of the lung. Creatinine 6.60 with a BUN of 63. Sodium 134. Potassium 4.7. Magnesium is 3.2. Natruretic peptide is 625. H&H is 9.2/ 28.6. White count is 7078 segs 11 lymphs and 9 mono s. There are no new cultures. Patient is much more alert and oriented today. He says he is breathing much better. Notes from Dr. Valorie Mascorro and Dr. Eliud Brito's have been reviewed 11/09/2016. Dr. Valorie Mascorro and I have discussed the case. We both are suspicious that we are dealing with amiodarone alone. Amiodarone was started this admission and the reconciliation by the motion picture projectionist apprentice implied that the patient was already on the medicine. The patient is a terrible historian. His is asleep on the cot next to him and is not much help. He says he has been on amiodarone for years. Will stop amiodarone. I am patient change in the patient's prednisone to Solu-Medrol 40 IV push every 8 hours and will monitor his chest x-ray is O2 sats. The patient is on Plaquenil. He has no idea why he takes this medicine. Creatinine is now 7.10 with a BUN of 76. Sodium is 132. Potassium 4.9. White count is 10,886 segs 6.6 lymphs and 5.5 monocytes. There are no eosinophils. H&H is 8.9 with 27.5. 11/10/2016. On 11/09/2016 Dr. Valorie Mascorro and I decided to stop the patient's amiodarone and I started him on a moderate dose of steroids. He had had 5 lobe interstitial infiltrates that did not resolve it is suspected. Today's x-ray is better by close to 50% allowing for the fact that this x-rays a little more penetrated than his previous x-rays. Patient says his breathing is more comfortable. He is lying flat in bed. Patient also has a abnormal ultrasound of the gallbladder. I will check room air ABGs and complete pulmonary function test with pre-and postbronchodilator spirometry to get an approximate baseline of where this patient is so we have some parameters to follow down the road. Patient is possibly for placement of a dialysis line today. There are no new positive cultures. Creatinine is 6.90 with a BUN of 73. Sodium is 132 with a potassium of 5.1. White count is 8700 with 89 segs. H&H is 8.8/27.2 and platelets 260,000. Nitrated peptide is been elevated. 11/11/2016. On 11/10/2016 Dr. Avinash gray and I reviewed the case. Patient had infected gallbladder. Recommendations were to proceed with surgery. Patient's status was likely to go downhill if we did not. Patient is now after surgery. He had a laparoscopic procedure in the gallbladder was not inflamed. He is on the ventilator and he will be moved to the intensive care unit. His chest x- ray today is stable. 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 We will continue his low-dose steroid treatment. ABGs are pending. Dr. Gray has discussed this with the patient's family. 11/11/2016. 1500. Patient's postop and stable. His chest x-ray stable. He has very good oxygenation. Early tomorrow morning will start weaning procedures with CPAP 4 hour to an hour and a half he does well will go with the T-tube for approximately an hour and then check his ABGs and decide if he is strong enough to come off the ventilator. 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 Follow-up x-rays lab and ABGs have been ordered per 11/12/2016. Earlier today the patient did not do well with weaning high having back on CPAP now and he is doing well and I will go to a T-tube and will see how he does from there. His chest x-ray is stable he still has bilateral interstitial disease and with alveolar filling that I think it is related to amiodarone lung. ABGs are stable. Natruretic peptide is fallen to 242. Sodium is 132. Potassium is 3.5. Creatinine is 6.60 with a BUN of 89. White count is 12,700 with 91% segs H&H is 8.7/29.9 and 9 platelets are 266,000. Patient has done well postop. 11/13/2016. This patient did not do well on T-tube trials today. He is doing fine on CPAP. His chest x-ray shows 5 lobe increased interstitial markings with some alveolar filling. All of this is improved over last 3 or 4 days. There is no congestive heart failure. 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 ABGs on FiO2 40% shows a pH of 7.37, PCO2 of 37.4, PO2 of 150 and a bicarb of 21.8. Sodium is 132 potassium is 5.0 creatinine is 5.20 with a BUN of 83. H&H is 9.0/26.8. Red blood cell indices are low. Platelets are 259, 000. White count is 9500 with 86 segs. Natruretic peptide remains elevated 344. Dr. Andres Spaulding and I have discussed the case and coordinated our care Physical exam. Vital signs. See below. Face is symmetrical. Lips and tongue are normal Neck. Symmetrical no meningismus. Lymphatics. No submandibular cervical supraclavicular or epitrochlear adenopathy. Chest is fairly clear. Patient's breathing comfortably lying flat in bed Heart lateral PMI Abdomen. Nontender. Positive bowel sounds Lower extremities. Skin no evidence of chronic venous stasis. No edema. Neurologic. Cranial nerves are intact. Long track motor functions intact. Gait was not tested. Psychiatric. Oriented 3. Very poor historian. Concentration is poor. Patient appears to be low on information. The remainder the physical exam is noncontributory. Plan. 11/01/2016. See my note above. See numbers 1 through 9 below 1. Diuresis. Watch BMP. 2. Replace folic acid 3. Replace iron 4. Blood transfusion 5. Deep venous thrombophlebitis prevention protocol 6. Replace vitamin D 7. Follow-up chest x-ray #8. Repeat echocardiogram. Consider increase of Procardia. Consider Revatio say from a cardiology standpoint. An outlier for pulmonary hypertension would be Apresoline. . 11/02/2016. See today's note above. Increase Procardia XL 60 to twice daily . Last Dr. Moseley his opinion concerning Revatio and/or Apresoline . 11/03/2016. See today's note above. 11/04/2016. See today's note above. Considering cutting back significantly on this patient pain medicines. I suspect these are the cause of his altered mental status. We will follow-up his chest x-ray and lab. Dr. Radha mcadams will see the patient this week 12. 11/08/2016. See today's note above. 11/09/2016. See today's note above. DC amiodarone. Change prednisone to Solu-Medrol. Dr. Mascorro and I have reviewed the case and coordinated our care . 11/10/2016. Off amiodarone. Chest x-ray better. Abnormal gallbladder studies dialysis line possible. Baseline ABGs and complete pulmonary function test with pre-and postbronchodilator spirometry. Follow-up chest x-ray . 11/11/2016. See today's note above. 16. 11/12/2016. See today's note above 17. 11/13/2016. See today's note above. Early tomorrow will try T-tube again and we will try to safely extubate this patient. Exam (Progress Note) - Constitutional Vitals: Period Temp Pulse Resp BP Sys/Maloney Pulse Ox Last 24 Hr 96.6 F-98.3 F 45-87 14-30 128-200/43-73 95-100 Results - Labs CBC & BMP: 11/13/16 04:29 11/13/16 04:29
[2016-11-14] MEDS: ALBUTEROL 2.5 MG/3 ML NEB RESP TX SCH ×4 (00:50→19:31)
[2016-11-14] MEDS: SODIUM CHLORIDE 0.9% 250 ML IV SCH ×2 (00:57→12:29)
[2016-11-14] MEDS: PROPOFOL 1,000 MG/100 ML BOTTLE IV SCH ×6 (00:59→22:15)
[2016-11-14] MEDS: methylPREDNISolone SOD SUC 40 MG/1 ML VIAL IV SCH ×3 (01:06→17:29)
[2016-11-14] MEDS: MORPHINE 2 MG/1 ML SYRINGE IV PRN (04:45)
[2016-11-14 05:49] LABS: ABG Base Excess 0.3 MMOL/L (-2.5-2.5); ABG HCO3 24.6 MMOL/L (20-26); ABG Oxygen Saturation 93.6 % (95-100); ABG PCO2 46.6 MM HG (35-48); ABG PH 7.356 (7.35-7.45); ABG PO2 71.3 MM HG (80-95); ABG TCO2 23.9 MMOL/L (23-27)
[2016-11-14 05:49] LABS: Basophils % 0.2 % (0.0-0.8); Hematocrit 25.8 VOL% (42.0-52.0); Hemoglobin 8.7 GM/DL (14.0-18.0); Immature Granulocytes % 5.6 %; Immature Granulocytes Absolute 0.68 #; Lymphocytes # 0.4 10*3/uL (1.4-4.0); Lymphocytes % 3.2 % (21.2-54.2); Mean Corpuscular HGB Conc 33.7 GM/DL (32-36); Mean Corpuscular Hemoglobin 26 PG (27-34); Mean Corpuscular Volume 78.2 FL (87-102); Monocytes # 0.7 10*3/uL (0.11-0.8); Monocytes % 5.6 % (1.7-12.7); Neutrophils # 10.4 10*3/uL (1.4-7.4); Neutrophils % 85.4 % (38.7-73.9); Platelet Count 267 T/CUMM (130-400); Red Cell Distribution Width 15.9 % (9.3-17.3); White Blood Count 12.1 T/CUMM (4-12)
[2016-11-14 06:16] LABS: Magnesium 2.9 MG/DL (1.8-2.4); Osmolality,Calculated 297.5 MOS/KG (273-304); Potassium 4.7 MMOL/L (3.5-5.1)
[2016-11-14 06:32] LABS: Hypochromasia 1+; Lymphocytes 1 % (20-55); Metamyelocytes 1 %; Microcytosis 1+; Ovalocytes Slight; Segmented Neutrophils 92 % (50-85); Total Cells Counted 100
[2016-11-14] MEDS: SODIUM ACETATE 100 MEQ in DEXTROSE 5% 1,000 ML IV SCH ×2 (07:01→21:25)
--- NOTE | 2016-11-14 07:07 | Case Mgmt Physician Query Form ---
LONG STAY PHYSICIAN RECERTIFICATION *This form is to be completed for all Medicare patients before they reach day 20 of their hospitalization. Please complete each section as appropriate.* I certify that hospitalization, and continued hospitalization, for this patient is medically necessary as follows: 1) Reasons of either continued hospitalization of the patient for medical treatment or medically required diagnostic study or special or unusual services for cost outlier cases are as follows: The patient developed acute cholecystitis while in hospital 2) Estimated time patient will need to remain in hospital: 7 days 3) Plan for Post Hospital Care: ( ) Home with Primary Care Follow up ( ) Home with Home Health Follow up ( X) LTACH/ Acute Care Rehab/ SNF/[facility] ( ) Other: If you have any questions, please contact me. Thank you, Marlena Daniels RN Case Management P: [phone] F [phone] E: [email or web address]
--- NOTE | 2016-11-14 08:15 | XRay Report ---
XR chest 1V portable Indication: CHF Comparison: Chest x-ray dated November 13, 2016 Technique: Single frontal view of the chest. Findings: Tip of endotracheal tube appears at the clavicular level. Continued borderline cardiomegaly status post sternotomy. Low lung volumes with bronchovascular crowding. Continued bilateral pulmonary interstitial prominence and scattered small opacities. Visualized osseous and surrounding soft tissue structures appear grossly unchanged.. IMPRESSION: No significant interval change. PROCEDURE INTERPRETED AT [facility] DEPARTMENT OF RADIOLOGY Final Report Signed by: Dr Oliver Lomax
[2016-11-14] MEDS: NIFEdipine 10 MG CAPSULE PO SCH ×3 (08:27→21:17)
[2016-11-14] MEDS: METOPROLOL TARTRATE 25 MG TABLET PO SCH ×2 (08:28→21:17)
[2016-11-14] MEDS: FOLIC ACID 0.4 MG TABLET PO SCH (08:29)
[2016-11-14] MEDS: COLCHICINE 0.6 MG TABLET PO SCH (08:29)
[2016-11-14] MEDS: DOCUSATE SODIUM 100 MG CAPSULE PO SCH ×2 (08:30→22:11)
[2016-11-14] MEDS: CHOLECALCIFEROL 1,000 UNIT TABLET PO SCH (08:31)
[2016-11-14] MEDS: ALLOPURINOL 300 MG TABLET PO SCH (08:31)
[2016-11-14] MEDS: ASPIRIN EC 81 MG TABLET PO SCH (08:32)
[2016-11-14] MEDS: ATORVASTATIN 40 MG TABLET PO SCH (08:32)
[2016-11-14] MEDS: MUPIROCIN 2% OINT 22 GM TUBE TOP SCH ×2 (08:33→21:18)
[2016-11-14] MEDS: INSULIN LISPRO 100 UNIT/ML SUBCUT SCH ×4 (08:42→21:16)
[2016-11-14] MEDS: INSULIN GLARGINE 100 UNIT/ML SUBCUT SCH (08:43)
[2016-11-14] MEDS: HEPARIN 5,000 UNIT/1 ML VIAL SUBCUT SCH ×2 (08:59→21:16)
[2016-11-14] MEDS: HYDROXYCHLOROQUINE 200 MG TABLET PO SCH (09:30)
--- NOTE | 2016-11-14 09:52 | Event Note ---
General Surgery Progress Note Chief complaint This patient is a 71-year-old man with multiple medical problems who developed acute cholecystitis treated with laparoscopic cholecystectomy on 11/11/2016 Interval history The patient remained on the ventilator over the weekend. He is not doing well on his T-tube trials. His renal function is actually improving over the weekend. He is tolerating tube feeds per Physical exam Abdominal incisions are clean with no evidence of infection. There are normal bowel sounds peer Labs Reviewed, hemoglobin stable, renal function improving Imaging Chest x-ray with diffuse patchy infiltrates Assessment and plan Continue tube feeds until the patient is extubated Continue pain control as needed
--- NOTE | 2016-11-14 10:09 | Cardiology Progress Note ---
Assessment and Plan (1) Acute exacerbation of chronic obstructive airways disease Status: Acute Assessment and plan: See plan of care listed below. Current Visit: Yes (2) Chronic kidney disease, stage IV (severe) Status: Chronic Assessment and plan: See plan of care listed below. Current Visit: Yes (3) Diabetes mellitus Status: Chronic Assessment and plan: See plan of care listed below. 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 Current Visit: Yes Qualifiers: Hypertension type: essential hypertension Qualified Code(s): I10 - Essential (primary) hypertension (5) Dyslipidemia Status: Chronic Assessment and plan: See plan of care listed below. Current Visit: No (6) Anemia Status: Chronic Assessment and plan: See plan of care listed below. Current Visit: Yes (7) Paroxysmal atrial fibrillation Status: Chronic Assessment and plan: See plan of care listed below. Current Visit: Yes (8) Status post aortic valve replacement with bioprosthetic valve Status: Chronic Assessment and plan: See plan of care listed below. Current Visit: Yes (9) Acute cholecystitis Status: Acute Assessment and plan: See plan of care listed below. Current Visit: Yes Cardiology - PN: Subj Interval history: Geometry Tutor: Dr. Franklin PCP: Dr. Min Summary - Mr. Acosta is a 71-year-old male with a past medical history of diabetes, hypertension, diastolic heart failure, paroxysmal atrial fibrillation (He had been on Coumadin in the past but it was stopped at the [facility] because of noncompliance and difficulty keeping the pro time therapeutic), chronic renal insufficiency, aortic stenosis (now status post tissue aortic valve replacement), history of pulmonary embolism, untreated obstructive sleep apnea and GERD. Patient was admitted to [facility] with recurrent diastolic heart failure. Echo Doppler done September 21, 2016 showed ejection fraction of 60% with grade 3 diastolic dysfunction, moderate dilated left atrium, mitral annular calcification, the aortic tissue valve was sclerotic but open widely. The right ventricle is dilated severe TR PA pressure 65-70 with no effusion. Patient has been anemic throughout this admission. Suspect this is anemia of chronic disease as patient does have history of chronic renal failure. Currently being managed by Dr. Pipo Spaulding. Cardiology was consulted for further assistance in the management of his diastolic heart failure. November UPDATE: Patient was seen and examined in the CCU. He is sedated and ventilated. He is status post cholecystectomy per Dr. Gray. Today postop day #3. 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 Amiodarone has been discontinued. Pulmonary is following. Creatinine is now 4.1 with a BUN of 79. Sodium is 132. Potassium 4.7. H&H 8.[address] Pipo Spaulding is following. Blood pressure is suboptimally controlled, medications have been adjusted. Patient is currently normal sinus rhythm with heart rates in the 50s without any overt arrhythmias or ectopy noted. Assessment/plan: 1. ACUTE EXACERBATION OF CHRONIC OBSTRUCTIVE AIRWAYS DISEASE - Management per pulmonary. Continue breathing treatments and steroid therapy. Agree with discontinuation of amiodarone. 2. PULMONARY HYPERTENSION - RVSP estimated at 79mmHg plus the right atrial pressure. Continue current plan of care. 3. HYPERTENSION - Patient's blood pressure is suboptimally controlled. Minoxidil was added today. Avoiding CANDY inhibitor and ARB due to fear of worsening renal function. Will make further adjustments as needed throughout his hospital stay. 4. ANEMIA - Likely anemia of chronic disease as patient has chronic renal disease. No overt bleeding noted. Continue to monitor closely with Daily CBC. 5. PAROXYSMAL ATRIAL FIBRILLATION - Currently in normal sinus rhythm. Amiodarone has been discontinued as this may be contributing to his lung disease. Suspect that he will develop Afib with RVR as we discontinue the Amiodarone but it will take some time for this to wear off. We will adjust and address this as it arises. 6. CHRONIC RENAL FAILURE - Creatinine is slightly better at 4.1 this morning.. Management per Dr. Pipo Spaulding. Patient may require dialysis at some point. 7. S/P AVR - Stable. Tissue aortic valve. Continue current plan of care. 8. HISTORY OF CVA - Patient is extremely high risk for stroke however he also has very significant anemia and is not a candidate for anticoagulation at this time. 9. ACUTE CHOLECYSTITIS - Patient is now status post cholecystectomy. Postop day #3. Further plan and addendum to follow per Dr. Witt. Exam (Progress Note) - Constitutional Vitals: Period Temp Pulse Resp BP Sys/Maloney Pulse Ox Last 24 Hr 96.6 F-98.5 F 45-64 14-30 146-198/43-73 97-100 Exam: General: Sedated and ventilated in the cardiac care unit. HEENT: PERRL, normocephalic, atraumatic. Mucous membranes moist. No jaundice noted. Conjunctiva moist and clear, sclerae anicteric Neck: No JVD/HJR, no thyromegaly or lymphadenopathy noted. No carotid bruit appreciated Cardiac: Regular rate and rhythm. Systolic murmur. Lungs: Rhonchi. No wheezing auscultated today. Patient on the ventilator. Abdomen: Soft, bowel sounds hypoactive. Extremities: No clubbing, cyanosis noted. No edema noted. Upper extremity pulses 2+. Lower extremity pulses 2+. Capillary refill less than 3 seconds. Neuro: Unable to fully assess as patient is sedated on the ventilator. Result/EKG - Labs CBC & BMP: 11/14/16 05:40 11/14/16 05:40 Labs: Laboratory Results - last 24 hr 11/13/16 11/13/16 11/13/16 11:27 13:04 13:09 WBC RBC Hgb Hct MCV MCH MCHC RDW Plt Count MPV Neut % (Auto) Lymph % (Auto) Mcintosh % (Auto) Eos % (Auto) Baso % (Auto) Neut # (Auto) Lymph # (Auto) Mcintosh # (Auto) Eos # (Auto) Baso # (Auto) Total Counted Immature Gran % Nucleated RBC % Immature Gran # Segmented Neutrophils Lymphocytes Monocytes Metamyelocytes Nucleated RBCs # Hypochromasia Microcytosis Ovalocytes Morphology Comment ABG pH ABG pCO2 ABG pO2 ABG HCO3 ABG Total CO2 ABG O2 Saturation ABG Base Excess Sodium Potassium Chloride Carbon Dioxide Anion Gap BUN Creatinine GFR Calculation BUN/Creatinine Ratio Glucose POC Glucose 408 H 408 H 345 H Calculated Osmolality Calcium Magnesium B-Natriuretic Peptide Ur Random Creatinine U Random Total Protein Ur Random Urea Nitrogn 11/13/16 11/13/16 11/13/16 14:00 14:00 14:00 WBC RBC Hgb Hct MCV MCH MCHC RDW Plt Count MPV Neut % (Auto) Lymph % (Auto) Mcintosh % (Auto) Eos % (Auto) Baso % (Auto) Neut # (Auto) Lymph # (Auto) Mcintosh # (Auto) Eos # (Auto) Baso # (Auto) Total Counted Immature Gran % Nucleated RBC % Immature Gran # Segmented Neutrophils Lymphocytes Monocytes Metamyelocytes Nucleated RBCs # Hypochromasia Microcytosis Ovalocytes Morphology Comment ABG pH ABG pCO2 ABG pO2 ABG HCO3 ABG Total CO2 ABG O2 Saturation ABG Base Excess Sodium Potassium Chloride Carbon Dioxide Anion Gap BUN Creatinine GFR Calculation BUN/Creatinine Ratio Glucose POC Glucose Calculated Osmolality Calcium Magnesium B-Natriuretic Peptide Ur Random Creatinine 52 U Random Total Protein 46 Ur Random Urea Nitrogn 432 11/13/16 11/13/16 11/14/16 15:55 22:49 05:40 WBC 12.1 H RBC 3.30 L Hgb 8.7 L Hct 25.8 L MCV 78.2 L MCH 26 L MCHC 33.7 RDW 15.9 Plt Count 267 MPV 10.0 Neut % (Auto) 85.4 H Lymph % (Auto) 3.2 L Mcintosh % (Auto) 5.6 Eos % (Auto) 0.0 Baso % (Auto) 0.2 Neut # (Auto) 10.4 H Lymph # (Auto) 0.4 L Mcintosh # (Auto) 0.7 Eos # (Auto) 0.0 Baso # (Auto) 0.0 Total Counted 100 Immature Gran % 5.6 Nucleated RBC % 0.0 Immature Gran # 0.68 Segmented Neutrophils 92 H Lymphocytes 1 L Monocytes 6 Metamyelocytes 1 Nucleated RBCs # 0.00 Hypochromasia 1+ Microcytosis 1+ Ovalocytes Slight Morphology Comment ABG pH ABG pCO2 ABG pO2 ABG HCO3 ABG Total CO2 ABG O2 Saturation ABG Base Excess Sodium Potassium Chloride Carbon Dioxide Anion Gap BUN Creatinine GFR Calculation BUN/Creatinine Ratio Glucose POC Glucose 371 H 289 H Calculated Osmolality Calcium Magnesium B-Natriuretic Peptide Ur Random Creatinine U Random Total Protein Ur Random Urea Nitrogn 11/14/16 11/14/16 11/14/16 05:40 05:40 05:50 WBC RBC Hgb Hct MCV MCH MCHC RDW Plt Count MPV Neut % (Auto) Lymph % (Auto) Mcintosh % (Auto) Eos % (Auto) Baso % (Auto) Neut # (Auto) Lymph # (Auto) Mcintosh # (Auto) Eos # (Auto) Baso # (Auto) Total Counted Immature Gran % Nucleated RBC % Immature Gran # Segmented Neutrophils Lymphocytes Monocytes Metamyelocytes Nucleated RBCs # Hypochromasia Microcytosis Ovalocytes Morphology Comment ABG pH 7.356 ABG pCO2 46.6 ABG pO2 71.3 L ABG HCO3 24.6 ABG Total CO2 23.9 ABG O2 Saturation 93.6 L ABG Base Excess 0.3 Sodium 132 L Potassium 4.7 Chloride 95 L Carbon Dioxide 27 Anion Gap 14.7 BUN 79 H Creatinine 4.10 H GFR Calculation 20 BUN/Creatinine Ratio 19.00 Glucose 274 H POC Glucose Calculated Osmolality 297.5 Calcium 8.0 L Magnesium 2.9 H B-Natriuretic Peptide 260 H Ur Random Creatinine U Random Total Protein Ur Random Urea Nitrogn 11/14/16 07:33 WBC RBC Hgb Hct MCV MCH MCHC RDW Plt Count MPV Neut % (Auto) Lymph % (Auto) Mcintosh % (Auto) Eos % (Auto) Baso % (Auto) Neut # (Auto) Lymph # (Auto) Mcintosh # (Auto) Eos # (Auto) Baso # (Auto) Total Counted Immature Gran % Nucleated RBC % Immature Gran # Segmented Neutrophils Lymphocytes Monocytes Metamyelocytes Nucleated RBCs # Hypochromasia Microcytosis Ovalocytes Morphology Comment ABG pH ABG pCO2 ABG pO2 ABG HCO3 ABG Total CO2 ABG O2 Saturation ABG Base Excess Sodium Potassium Chloride Carbon Dioxide Anion Gap BUN Creatinine GFR Calculation BUN/Creatinine Ratio Glucose POC Glucose 318 H Calculated Osmolality Calcium Magnesium B-Natriuretic Peptide Ur Random Creatinine U Random Total Protein Ur Random Urea Nitrogn
[2016-11-14] MEDS ORDERED: MINOXIDIL 10 MG TABLET PO SCH (10:30)
[2016-11-14] MEDS: FAMOTIDINE INJ 40 MG in SODIUM CHLORIDE 0.9% 100 ML IV SCH (10:30)
--- NOTE | 2016-11-14 11:15 | Pulmonology Progress Note ---
Pulmonary - PN: Subj Interval history: Santosh Courtney, ANP-BC, GNP-BC, acting as scribe for Dr. Blair Brizuela This is a 71-year-old white male. We saw him in pulmonary consultation 2016. At that time, our impressions were: 1. Acute congestive heart failure. 2. Aortic valve replacement 2012 3. COPD. Past history tobacco abuse 3.1 Anemia. Folic acid level is low and vitamin B12 level is normal. 4. Chronic renal failure 5. Low calcium and low albumin. 6. Insulin-dependent diabetes mellitus with a history of diabetic ketoacidosis 7. Hyperlipidemia 8. History of atrial fib 9. Symptoms suggestive of obstructive sleep apnea 10. Mild pulmonary hypertension. Etiology undetermined. Note elevated left ventricular filling blood pressures on echocardiogram. Previous echocardiogram was obtained when the patient was in congestive heart failure. Obstructive sleep apnea could be a contributory factor. 11. Past history of deep venous thrombophlebitis and pulmonary emboli. No evidence of either found during initial workup this admission 12. See past history 11/01/2016. Chest x-rays are pending. I have ordered the EPA and lateral for today and tomorrow. Patient still has shortness of breath and he complains of chest pain with exertion. To me this chest pain is worrisome for cardiac angina. Pulmonary hypertension can sometimes cause similar pain. Last admission the patient's pulmonary artery pressures were 65-70 mmHg. This echocardiogram was obtained while the patient was in congestive heart failure. I am going to order a repeat echocardiogram for comparison pulmonary artery pressures. Patient's on Procardia XL 60 which is a good medicine for pulmonary hypertension. We could go higher. We could add Revatio if it appears safe from a cardiology standpoint. Occasionally Apresoline works for pulmonary hypertension. Apresoline could be added if needed to help with cardiac output. Patient's H&H is 7.6/23.9. He is low folic acid. His B12 is normal. He also is low on iron. I have started replacement with iron and also folic acid. His vitamin D level is low and vitamin D replacement has been started. I am going to transfuse the patient with a unit of blood today and if he tolerates this well will probably should transfuse another unit tomorrow. This will certainly improve his oxygen carrying capacity. BNP is pending. Note sedimentation rate is 96. Doppler venograms were negative for deep venous thrombophlebitis. Ventilation perfusion lung scan showed no perfusion defects. 11/02/2016. Today's x-ray shows mild residual congestive heart failure. BNP remains elevated at 556. Noted creatinine is 4.60 with a BUN of 52 and this may falsely elevate his BNP. Patient's vitamin D is low and will order replacement. Folic acid is also low. B12 is in the normal range of 438. Posttransfusion H&H is 8.4/26.9. Iron saturation is also low. Iron has not been started. Patient has some persistent nausea. Nares are positive for MRSA. Repeat echocardiogram done 10/29/2016 shows ejection fraction 65% with grade 3 diastolic dysfunction and moderate biatrial enlargement. There is mild atrial regurgitation. Trace of aortic insufficiency. Pulmonary artery pressures are estimated to be 79 mmHg. Patient's on Procardia XL 60 and I will increase this to 120 mg daily. We did consider Revatio if cardiology feels this is safe. Would start with 20 mg every 8 hours. Alternatively we could try Apresoline 25 3 times daily which occasionally helps and may help with the patient's cardiac output. Will ask for Dr. Bueno's comment. 11/03/2016. Today's chest x-ray continues to show mild pulmonary edema. 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 CBC is stable. The rest of today's lab is pending. Dr. Lydia Ca sleep medicine note has been reviewed and I agree with his plans. Patient's was apparently asleep on the bed. She moves her foot but she never turned over or participate in our conversation today. Santosh Courtney nurse practitioner was present. Patient's had some slight fever related to blood transfusions. I do not see anything so far that looks like amiodarone along. Amiodarone was only recently added. Procardia XL was increased to 60 mg twice a day on 11/02/2016 an attempt to treat the patient's pulmonary hypertension 11/04/2016. This patient had altered mental status and had a normal CT of the head yesterday. I reviewed his medicines from last night. He received [place] 10. 4 mg of morphine and transfers seen. He is a little slow on the mental uptake this morning and I suspect the answer lies in his medicines. This patient has had heart failure that has not quite resolved. His chest x-ray has not been done today. See my note from 11/03/2016. I reviewed the number of old x-rays at his baseline x-ray should looked like x-rays that were done on 2014, 01/05/2016 and on 09/26/2016. The changes he has now are secondary to none resolved pulmonary edema. These are exactly the same changes that he has had before when he has pulmonary edema. The only outlier would be a reaction to amiodarone but he is only been on this for short period of time BNP is elevated at 307. Patient creatinine remains elevated 490 with a BUN of 52 and normal electrolytes. H&H a little bit better at 9.9/31.2. White count 6200 and platelets are 182,000. Will continue to follow his chest x-ray and lab. 11/08/2016. Chest x-ray is essentially unchanged showing increased interstitial markings in all 5 lobes of the lung. Creatinine 6.60 with a BUN of 63. Sodium 134. Potassium 4.7. Magnesium is 3.2. Natruretic peptide is 625. H&H is 9.2/ 28.6. White count is 7078 segs 11 lymphs and 9 mono s. There are no new cultures. Patient is much more alert and oriented today. He says he is breathing much better. Notes from Dr. Valorie Mascorro and Dr. Eliud Brito's have been reviewed 11/09/2016. Dr. Valorie Mascorro and I have discussed the case. We both are suspicious that we are dealing with amiodarone alone. Amiodarone was started this admission and the reconciliation by the ad terminal makeup operator implied that the patient was already on the medicine. The patient is a terrible historian. His is asleep on the cot next to him and is not much help. He says he has been on amiodarone for years. Will stop amiodarone. I am patient change in the patient's prednisone to Solu-Medrol 40 IV push every 8 hours and will monitor his chest x-ray is O2 sats. The patient is on Plaquenil. He has no idea why he takes this medicine. Creatinine is now 7.10 with a BUN of 76. Sodium is 132. Potassium 4.9. White count is 10,886 segs 6.6 lymphs and 5.5 monocytes. There are no eosinophils. H&H is 8.9 with 27.5. 11/10/2016. On 11/09/2016 Dr. Valorie Mascorro and I decided to stop the patient's amiodarone and I started him on a moderate dose of steroids. He had had 5 lobe interstitial infiltrates that did not resolve it is suspected. Today's x-ray is better by close to 50% allowing for the fact that this x-rays a little more penetrated than his previous x-rays. Patient says his breathing is more comfortable. He is lying flat in bed. Patient also has a abnormal ultrasound of the gallbladder. I will check room air ABGs and complete pulmonary function test with pre-and postbronchodilator spirometry to get an approximate baseline of where this patient is so we have some parameters to follow down the road. Patient is possibly for placement of a dialysis line today. There are no new positive cultures. Creatinine is 6.90 with a BUN of 73. Sodium is 132 with a potassium of 5.1. White count is 8700 with 89 segs. H&H is 8.8/27.2 and platelets 260,000. Nitrated peptide is been elevated. 11/11/2016. On 11/10/2016 Dr. Avinash gray and I reviewed the case. Patient had infected gallbladder. Recommendations were to proceed with surgery. Patient's status was likely to go downhill if we did not. Patient is now after surgery. He had a laparoscopic procedure in the gallbladder was not inflamed. He is on the ventilator and he will be moved to the intensive care unit. His chest x- ray today is stable. 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 We will continue his low-dose steroid treatment. ABGs are pending. Dr. Gray has discussed this with the patient's family. 11/11/2016. 1500. Patient's postop and stable. His chest x-ray stable. He has very good oxygenation. Early tomorrow morning will start weaning procedures with CPAP 4 hour to an hour and a half he does well will go with the T-tube for approximately an hour and then check his ABGs and decide if he is strong enough to come off the ventilator. 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 Follow-up x-rays lab and ABGs have been ordered per 11/12/2016. Earlier today the patient did not do well with weaning high having back on CPAP now and he is doing well and I will go to a T-tube and will see how he does from there. His chest x-ray is stable he still has bilateral interstitial disease and with alveolar filling that I think it is related to amiodarone lung. ABGs are stable. Natruretic peptide is fallen to 242. Sodium is 132. Potassium is 3.5. Creatinine is 6.60 with a BUN of 89. White count is 12,700 with 91% segs H&H is 8.7/29.9 and 9 platelets are 266,000. Patient has done well postop. 11/13/2016. This patient did not do well on T-tube trials today. He is doing fine on CPAP. His chest x-ray shows 5 lobe increased interstitial markings with some alveolar filling. All of this is improved over last 3 or 4 days. There is no congestive heart failure. 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 ABGs on FiO2 40% shows a pH of 7.37, PCO2 of 37.4, PO2 of 150 and a bicarb of 21.8. Sodium is 132 potassium is 5.0 creatinine is 5.20 with a BUN of 83. H&H is 9.0/26.8. Red blood cell indices are low. Platelets are 259, 000. White count is 9500 with 86 segs. Natruretic peptide remains elevated 344. Dr. Andres Spualding and I have discussed the case and coordinated our care 11/14/2016. The patient was seen today along with his nurse Nichole. The patient was on continuous CPAP for 24 hours and tried on T-tube, however, when Nichole came on at 7:00am, she states the patient was significantly hypertensive with a systolic blood pressure of approximately 240. He was placed back on the ventilator until his blood pressure could come under better control. Cardiology has added minoxidil today. We will continue with the ventilator weaning protocol. Nursing staff reports that the patient has significant sputum that is thick and tenacious. We will schedule him for fiberoptic bronchoscopy for tomorrow morning. Medications have been reviewed. We made no changes today. Labs have been reviewed. White count is 12,100 with 85.4% segs; H&H 8.7/25.8; platelet count 267,000; creatinine has improved to 4.10, BUN 79, sodium 132, potassium 4.7, magnesium 2.9; BNP 260 ABGs this morning on T-tube and an FiO2 of 40% showed pH of 7.356, PCO2 46.6, PO2 71.3, bicarb 24.6, oxygen saturation 93.6%. Exam (Progress Note) - Constitutional Vitals: Period Temp Pulse Resp BP Sys/Maloney Pulse Ox Last 24 Hr 96.6 F-98.5 F 46-64 14-27 146-198/43-73 97-100 Exam: Chest is fairly clear; loose large airway congestion Heart with a lateral PMI Abdomen is postsurgical as per Dr. Gray; bowel sounds positive 4 Lower extremities with nothing to suggest acute deep venous thrombophlebitis Psychiatric arousable, but presently sedated Neurologic moves all 4 extremities Plan: Fiberoptic bronchoscopy 11/15/2016 at 0830. Repeat chest x-ray and ABGs in the morning. Continue with the weaning protocol. See orders. Results - Labs CBC & BMP: 11/14/16 05:40 11/14/16 05:40
--- NOTE | 2016-11-14 12:21 | Pathology Report from [facility] ---
[facility] ACCESSION # : [id number] PATIENT NAME : Gustabo Drake ORDERING DR : Avinash Gray MD CLINICAL HX: Cholecystitis POST-OP DX: Same SPECIMEN INFO: Gallbladder GROSS DESCRIPTION: Received fresh labeled GUSTABO DRAKE is a focally opened gallbladder measuring 8.3 x 4.1 cm. The serosa is fatty yellow gold. The gallbladder wall has a thickness of 0.2 cm. The mucosa is granular and yellow manuel. The lumen contains markedly viscous brown gold bile admixed with soft yellow polypoid nodules. Also within the bile are six irregular shaped black stones measuring up to 2.1 cm. Patient Registration Specialist sections are submitted in one cassette. DIAGNOSIS FOR GUSTABO DRAKE: GALLBLADDER, CHOLECYSTECTOMY: Chronic cholecystitis. Cholesterolosis. Cholelithiasis. COLLECTED DATE: 11/13/2016 [facility] REPORT DATE: 11/14/2016 ELECTRONICALLY SIGNED BY: Jesu Cloud M.D. 11/14/2016 - 9:46:11 [facility]
[2016-11-14] MEDS: MINOXIDIL 2.5 MG TABLET PO SCH ×2 (12:29→21:17)
[2016-11-14] MEDS ORDERED: INSULIN GLARGINE 100 UNIT/ML SUBCUT SCH (13:19)
--- NOTE | 2016-11-14 13:23 | Hospitalist Progress Note ---
Assessment and Plan (1) Acute cholecystitis Status: Acute Assessment and plan: The patient is postoperative day #3 laparoscopic cholecystectomy. The patient continues on postoperative pathway wean from the ventilator as his breathing allows. We continue treatment of chronic kidney disease stage IV and diastolic congestive heart failure. Current Visit: Yes (2) Acute exacerbation of chronic obstructive airways disease Status: Acute Current Visit: Yes (3) Diastolic CHF Status: Acute Current Visit: Yes Qualifiers: Congestive heart failure chronicity: acute on chronic Qualified Code(s): I50.33 - Acute on chronic diastolic (congestive) heart failure (4) Chronic kidney disease, stage IV (severe) Status: Chronic Current Visit: Yes Hospitalist: Subjective Interval history: The patient was initially on [place] and being treated for cardiomyopathy and renal failure. The patient's shortness of breath and nausea were stable but not improving. He was found to have cholecystitis and has now had laparoscopic cholecystectomy. The patient remains on the ventilator. The hearings reporter and corporate learning consultant are adjusting the patient's medications with the goal of weaning him from the ventilator. Creatinine has improved in the last several days. Exam - Constitutional Vitals: Period Temp Pulse Resp BP Sys/Maloney Pulse Ox Last 24 Hr 97.2 F-98.5 F 47-64 14-27 146-198/50-73 97-100 Exam: Constitutional System: Mild distress. No tremulousness. Orally intubated and mechanically ventilated. Head: Normocephalic, atraumatic. Ears, Nose and Throat System: No evidence of Otitis or Mastoiditis. No epistaxis or discharge Eyes System: Pupils equal, round, and reactive. Extraocular muscles intact. Neck: Supple, without adenopathy, No jugular venous distention. No thyromegaly , neck mass, or prior surgery apparent. Respiratory System: Chest few rales in bases to auscultation. Cardiovascular System: Heart with regular rate and rhythm. No murmur. Results - Labs CBC & BMP: 11/14/16 05:40 11/14/16 05:40 Lab Results: I have reviewed the past 24 hour labs
--- NOTE | 2016-11-14 23:26 | Nephrology Progress Note ---
Nephrology - PN: Subj Interval history: He remains on ventilator. Blood pressure was elevated this morning but is now improved. Minoxidil has been started. Urine output has been improving without diuretics Exam (PN)-Nephrology - Vital Signs Vital signs: Period Temp Pulse Resp BP Sys/Maloney Pulse Ox Last 24 Hr 97.3 F-98.5 F 41-77 14-66 146-208/51-70 93-100 Exam: Gen.: Sedated on ventilator ENT: Pupils equal round reactive to light. EOMs intact. Neck: Supple. No JVD or bruit. Cardiovascular: Regular rate and rhythm. No murmur rub or gallop Lungs: Few rhonchi. No rales Abdomen: Soft. Nontender. Positive bowel sounds. No organomegaly Extremities: No edema - Lab 11/14/16 05:40 11/14/16 05:40 Most recent lab results ABG pH 7.356 (7.35-7.45) 11/14/16 05:50 ABG pCO2 46.6 MM HG (35-48) 11/14/16 05:50 ABG pO2 71.3 MM HG (80-95) L 11/14/16 05:50 ABG HCO3 24.6 MMOL/L (20-26) 11/14/16 05:50 ABG O2 Saturation 93.6 % (95-100) L 11/14/16 05:50 Calcium 8.0 MG/DL (8.5-10.1) L 11/14/16 05:40 Magnesium 2.9 MG/DL (1.8-2.4) H 11/14/16 05:40 Assessment and Plan (1) Chronic kidney disease, stage IV (severe) Status: Chronic Assessment and plan: 71-year-old man admitted with: * CRF stage IV. Baseline creatinine upper threes * ARF on CRF. Renal function and urine output have improved over the past 2 days. Urine output greater than 2 L without diuretic * Cholecystitis. Status post laparoscopic cholecystectomy * Diastolic CHF. Compensated * COPD. No wheezing today. Bronchoscopy tomorrow * Pulmonary hypertension * Prosthetic aortic valve * Diabetes mellitus * Hypertension * Anemia. Posttransfusion Current Visit: Yes (2) Diastolic CHF Status: Acute Current Visit: Yes Qualifiers: Congestive heart failure chronicity: acute on chronic Qualified Code(s): I50.33 - Acute on chronic diastolic (congestive) heart failure (3) Pulmonary edema Status: Acute Current Visit: Yes (4) Chronic obstructive pulmonary disease Status: Acute Current Visit: Yes Qualifiers: COPD type: unspecified COPD Qualified Code(s): J44.9 - Chronic obstructive pulmonary disease, unspecified (5) Diabetes mellitus Status: Chronic Current Visit: Yes Qualifiers: Diabetes mellitus type: type 2 Diabetes mellitus complication status: with kidney complications Diabetes mellitus complication detail: with chronic kidney disease Diabetes mellitus long term care social worker insulin use: with long term care social worker use Chronic kidney disease stage: stage 4 (severe) Qualified Code(s): E11.22 - Type 2 diabetes mellitus with diabetic chronic kidney disease; N18.4 - Chronic kidney disease, stage 4 (severe); Z79.4 - group home (current) use of insulin (6) Hypertension Status: Chronic Current Visit: Yes Qualifiers: Hypertension type: essential hypertension Qualified Code(s): I10 - Essential (primary) hypertension
[2016-11-15] MEDS: ALBUTEROL 2.5 MG/3 ML NEB RESP TX SCH ×4 (00:34→19:45)
[2016-11-15] MEDS: methylPREDNISolone SOD SUC 40 MG/1 ML VIAL IV SCH ×3 (01:59→17:28)
[2016-11-15] MEDS: SODIUM CHLORIDE 0.9% 250 ML IV SCH ×2 (03:30→15:48)
[2016-11-15] MEDS: PROPOFOL 1,000 MG/100 ML BOTTLE IV SCH ×5 (03:30→21:37)
[2016-11-15 05:43] LABS: ABG Base Excess 3.6 MMOL/L (-2.5-2.5); ABG HCO3 27.7 MMOL/L (20-26); ABG Oxygen Saturation 99.6 % (95-100); ABG PCO2 39.1 MM HG (35-48); ABG PH 7.458 (7.35-7.45); ABG TCO2 25.5 MMOL/L (23-27)
[2016-11-15 05:48] LABS: Basophils % 0.1 % (0.0-0.8); Eosinophils % 0.1 % (0.00-10.9); Hematocrit 25.9 VOL% (42.0-52.0); Hemoglobin 8.7 GM/DL (14.0-18.0); Immature Granulocytes % 5.4 %; Immature Granulocytes Absolute 0.65 #; Lymphocytes # 0.3 10*3/uL (1.4-4.0); Lymphocytes % 2.7 % (21.2-54.2); Mean Corpuscular HGB Conc 33.6 GM/DL (32-36); Mean Corpuscular Hemoglobin 27 PG (27-34); Mean Platelet Volume 10.3 FL (9.6-12.0); Monocytes # 0.6 10*3/uL (0.11-0.8); Monocytes % 4.8 % (1.7-12.7); Neutrophils # 10.5 10*3/uL (1.4-7.4); Neutrophils % 86.9 % (38.7-73.9); Platelet Count 234 T/CUMM (130-400); Red Blood Count 3.28 MC/CUMM (3.8-5.5); Red Cell Distribution Width 15.8 % (9.3-17.3); White Blood Count 12.1 T/CUMM (4-12)
[2016-11-15 05:58] LABS: PT Patient Result 10.5 SECS; Partial Thromboplastin Time 27.3 SECS (0-40)
[2016-11-15 06:07] LABS: Hypochromasia 1+; Lymphocytes 6 % (20-55); Microcytosis Slight; Nucleated Red Blood Cells 1 (0-5); Ovalocytes Slight; Platelet Estimate Adequate; Segmented Neutrophils 91 % (50-85); Total Cells Counted 100
[2016-11-15 06:19] LABS: Calcium 8.2 MG/DL (8.5-10.1); Magnesium 2.7 MG/DL (1.8-2.4); Osmolality,Calculated 305.4 MOS/KG (273-304); Phosphorous 5.1 MG/DL (2.5-4.9); Potassium 4.5 MMOL/L (3.5-5.1); Prealbumin 27.2 MG/DL (20-40)
--- NOTE | 2016-11-15 07:13 | Event Note ---
General Surgery Progress Note Chief complaint This patient is a 71-year-old man with multiple medical problems who developed acute cholecystitis treated with laparoscopic cholecystectomy on 11/11/2016 Interval history No events overnight. Patient is failing CPAP because of gagging and hypertension. He is on 40% PEEP of 6. His labs are stable today his creatinine is improving but his BUN went up a little bit. Urine output is marginal. The patient is tolerating tube feeds. Physical exam Abdominal incisions are clean with no evidence of infection. There are normal bowel sounds. Labs Reviewed, hemoglobin stable, as above Imaging Chest x-ray improved Assessment and plan Continue tube feeds until the patient is extubated Continue pain control as needed
--- NOTE | 2016-11-15 07:25 | XRay Report ---
XR chest 1V portable Indication: Ventilator Comparison: Chest x-ray dated November 14, 2016 Technique: Single frontal view of the chest. Findings: The cardiomediastinal silhouette is stable in configuration status post sternotomy. Endotracheal tube stable in positioning. Low lung volumes with bronchovascular crowding. Continued bilateral pulmonary interstitial prominence and scattered small opacities. Visualized osseous and surrounding soft tissue structures appear grossly unchanged. IMPRESSION: No significant interval change. PROCEDURE INTERPRETED AT [facility] DEPARTMENT OF RADIOLOGY Final Report Signed by: Dr Oliver Lomax
[2016-11-15] MEDS: INSULIN LISPRO 100 UNIT/ML SUBCUT SCH ×4 (07:41→20:18)
--- NOTE | 2016-11-15 08:48 | Cardiology Progress Note ---
Assessment and Plan (1) Acute exacerbation of chronic obstructive airways disease Status: Acute Assessment and plan: See plan of care listed below. Current Visit: Yes (2) Chronic kidney disease, stage IV (severe) Status: Chronic Assessment and plan: See plan of care listed below. Current Visit: Yes (3) Diabetes mellitus Status: Chronic Assessment and plan: See plan of care listed below. Current Visit: Yes Qualifiers: Diabetes mellitus type: type 2 Diabetes mellitus complication status: with kidney complications Diabetes mellitus complication detail: with chronic kidney disease Diabetes mellitus tank terminal gauger insulin use: with tank terminal gauger use Chronic kidney disease stage: stage 4 (severe) Qualified Code(s): E11.22 - Type 2 diabetes mellitus with diabetic chronic kidney disease; N18.4 - Chronic kidney disease, stage 4 (severe); Z79.4 - termite technician (current) use of insulin (4) Hypertension Status: Chronic Assessment and plan: See plan of care listed below. Current Visit: Yes Qualifiers: Hypertension type: essential hypertension Qualified Code(s): I10 - Essential (primary) hypertension (5) Dyslipidemia Status: Chronic Assessment and plan: See plan of care listed below. Current Visit: No (6) Anemia Status: Chronic Assessment and plan: See plan of care listed below. Current Visit: Yes (7) Paroxysmal atrial fibrillation Status: Chronic Assessment and plan: See plan of care listed below. Current Visit: Yes (8) Status post aortic valve replacement with bioprosthetic valve Status: Chronic Assessment and plan: See plan of care listed below. Current Visit: Yes (9) Acute cholecystitis Status: Acute Assessment and plan: See plan of care listed below. Current Visit: Yes Cardiology - PN: Subj Interval history: Pay Station Attendant: Dr. Franklin PCP: Dr. Min Summary - Mr. Acosta is a 71-year-old male with a past medical history of diabetes, hypertension, diastolic heart failure, paroxysmal atrial fibrillation (He had been on Coumadin in the past but it was stopped at the [place] because of noncompliance and difficulty keeping the pro time therapeutic), chronic renal insufficiency, aortic stenosis (now status post tissue aortic valve replacement), history of pulmonary embolism, untreated obstructive sleep apnea and GERD. Patient was admitted to [facility] with recurrent diastolic heart failure. Echo Doppler done September 21, 2016 showed ejection fraction of 60% with grade 3 diastolic dysfunction, moderate dilated left atrium, mitral annular calcification, the aortic tissue valve was sclerotic but open widely. The right ventricle is dilated severe TR PA pressure 65-70 with no effusion. Patient has been anemic throughout this admission. Suspect this is anemia of chronic disease as patient does have history of chronic renal failure. Currently being managed by Dr. Pipo Spaulding. Cardiology was consulted for further assistance in the management of his diastolic heart failure. November UPDATE: Patient was seen and examined in the CCU. He is sedated and ventilated. He is status post cholecystectomy per Dr. Gray. Today postop day #4. 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 Amiodarone has been discontinued. Pulmonary is following and plans for bronchoscopy this morning. Creatinine continues to improve, 3.7 this morning with a BUN of 83. Sodium is 133. Potassium 4.5. H&H 8.[address] Pipo Spaulding is following. Blood pressure is better controlled this morning after addition of minoxidil yesterday. Abdominal incisions are healing well without signs of infection. Vital signs are stable. Patient is currently normal sinus rhythm with heart rates in the 50s without any overt arrhythmias or ectopy noted. Assessment/plan: 1. ACUTE EXACERBATION OF CHRONIC OBSTRUCTIVE AIRWAYS DISEASE - Management per pulmonary. Continue breathing treatments and steroid therapy. Agree with discontinuation of amiodarone. 2. PULMONARY HYPERTENSION - RVSP estimated at 79mmHg plus the right atrial pressure. Continue current plan of care. 3. HYPERTENSION - Patient's blood pressure is better controlled this morning after adding Minoxidil yesterday. Will monitor this today and increase Minoxidil dose tomorrow if BP remains high. Avoiding CANDY inhibitor and ARB due to fear of worsening renal function. Avoiding increasing beta jim dose due to patient's significant lung disease. Will make further adjustments as needed throughout his hospital stay. 4. ANEMIA - Likely anemia of chronic disease as patient has chronic renal disease. Stool was negative for occult blood this admission. No overt bleeding noted. Continue to monitor closely with Daily CBC. 5. PAROXYSMAL ATRIAL FIBRILLATION - Currently in normal sinus rhythm. Amiodarone has been discontinued as this may be contributing to his lung disease. Suspect that he will develop Afib with RVR as we discontinue the Amiodarone but it will take some time for this to wear off. We will adjust and address this as it arises. 6. CHRONIC RENAL FAILURE - Creatinine continues to improve, 3.7 this morning. Management per Dr. Pipo Spaulding. 7. S/P AVR - Stable. Tissue aortic valve. Continue current plan of care. 8. HISTORY OF CVA - Patient is extremely high risk for stroke however he also has very significant anemia and is not a candidate for anticoagulation at this time. 9. ACUTE CHOLECYSTITIS - Patient is now status post cholecystectomy. Postop day #4. Abdominal incisions are healing well no signs of infection. Surgery is following. Further plan and addendum to follow per Dr. Witt. Exam (Progress Note) - Constitutional Vitals: Period Temp Pulse Resp BP Sys/Maloney Pulse Ox Last 24 Hr 97.4 F-98.2 F 41-77 12-66 146-208/45-69 93-100 Exam: General: Sedated and ventilated in the cardiac care unit. HEENT: PERRL, normocephalic, atraumatic. Mucous membranes moist. No jaundice noted. Conjunctiva moist and clear, sclerae anicteric Neck: No JVD/HJR, no thyromegaly or lymphadenopathy noted. No carotid bruit appreciated Cardiac: Regular rate and rhythm. Systolic murmur. Lungs: Few rhonchi auscultated. No wheezing auscultated today. Patient on the ventilator. Abdomen: Soft, normal bowel sounds. Abdominal incisions healing well without signs of infection. Extremities: No clubbing, cyanosis noted. No edema noted. Upper extremity pulses 2+. Lower extremity pulses 2+. Capillary refill less than 3 seconds. Neuro: Unable to fully assess as patient is sedated on the ventilator. Result/EKG - Labs CBC & BMP: 11/15/16 05:30 11/15/16 05:30 Lab Results: I have reviewed the past 24 hour labs Labs: Laboratory Results - last 24 hr 11/14/16 11/14/16 11/14/16 11:27 15:53 20:55 WBC RBC Hgb Hct MCV MCH MCHC RDW Plt Count MPV Neut % (Auto) Lymph % (Auto) Bonner % (Auto) Eos % (Auto) Baso % (Auto) Neut # (Auto) Lymph # (Auto) Bonner # (Auto) Eos # (Auto) Baso # (Auto) Total Counted Immature Gran % Nucleated RBC % Immature Gran # Segmented Neutrophils Lymphocytes Monocytes Nucleated RBCs Nucleated RBCs # Platelet Estimate Hypochromasia Microcytosis Ovalocytes INR PT Patient/Control Mix Circ Anticoag PTT ABG pH ABG pCO2 ABG pO2 ABG HCO3 ABG Total CO2 ABG O2 Saturation ABG Base Excess Sodium Potassium Chloride Carbon Dioxide Anion Gap BUN Creatinine GFR Calculation BUN/Creatinine Ratio Glucose POC Glucose 330 H 344 H 303 H Calculated Osmolality Calcium Phosphorus Magnesium Prealbumin 11/15/16 11/15/16 11/15/16 05:30 05:30 05:30 WBC RBC Hgb Hct MCV MCH MCHC RDW Plt Count MPV Neut % (Auto) Lymph % (Auto) Bonner % (Auto) Eos % (Auto) Baso % (Auto) Neut # (Auto) Lymph # (Auto) Bonner # (Auto) Eos # (Auto) Baso # (Auto) Total Counted Immature Gran % Nucleated RBC % Immature Gran # Segmented Neutrophils Lymphocytes Monocytes Nucleated RBCs Nucleated RBCs # Platelet Estimate Hypochromasia Microcytosis Ovalocytes INR 1.0 PT Patient/Control Mix 10.5 Circ Anticoag PTT 27.3 ABG pH 7.458 H ABG pCO2 39.1 ABG pO2 159.0 H ABG HCO3 27.7 H ABG Total CO2 25.5 ABG O2 Saturation 99.6 ABG Base Excess 3.6 H Sodium 133 L Potassium 4.5 Chloride 94 L Carbon Dioxide 28 Anion Gap 15.5 H BUN 83 H Creatinine 3.70 H GFR Calculation 23 BUN/Creatinine Ratio 22.00 H Glucose 361 H POC Glucose Calculated Osmolality 305.4 H Calcium 8.2 L Phosphorus 5.1 H Magnesium 2.7 H Prealbumin 27.2 11/15/16 11/15/16 05:30 07:22 WBC 12.1 H RBC 3.28 L Hgb 8.7 L Hct 25.9 L MCV 79.0 L MCH 27 MCHC 33.6 RDW 15.8 Plt Count 234 MPV 10.3 Neut % (Auto) 86.9 H Lymph % (Auto) 2.7 L Bonner % (Auto) 4.8 Eos % (Auto) 0.1 Baso % (Auto) 0.1 Neut # (Auto) 10.5 H Lymph # (Auto) 0.3 L Bonner # (Auto) 0.6 Eos # (Auto) 0.0 Baso # (Auto) 0.0 Total Counted 100 Immature Gran % 5.4 Nucleated RBC % 0.0 Immature Gran # 0.65 Segmented Neutrophils 91 H Lymphocytes 6 L Monocytes 3 Nucleated RBCs 1 Nucleated RBCs # 0.00 Platelet Estimate Adequate Hypochromasia 1+ Microcytosis Slight Ovalocytes Slight INR PT Patient/Control Mix Circ Anticoag PTT ABG pH ABG pCO2 ABG pO2 ABG HCO3 ABG Total CO2 ABG O2 Saturation ABG Base Excess Sodium Potassium Chloride Carbon Dioxide Anion Gap BUN Creatinine GFR Calculation BUN/Creatinine Ratio Glucose POC Glucose 432 H Calculated Osmolality Calcium Phosphorus Magnesium Prealbumin
[2016-11-15] MEDS: MUPIROCIN 2% OINT 22 GM TUBE TOP SCH ×2 (08:50→20:18)
[2016-11-15] MEDS: FOLIC ACID 0.4 MG TABLET PO SCH (08:51)
[2016-11-15] MEDS: NIFEdipine 10 MG CAPSULE PO SCH ×3 (08:51→20:17)
[2016-11-15] MEDS: ALLOPURINOL 300 MG TABLET PO SCH (08:52)
[2016-11-15] MEDS: CHOLECALCIFEROL 1,000 UNIT TABLET PO SCH (08:52)
[2016-11-15] MEDS: ATORVASTATIN 40 MG TABLET PO SCH (08:52)
[2016-11-15] MEDS: ASPIRIN EC 81 MG TABLET PO SCH (08:52)
[2016-11-15] MEDS: METOPROLOL TARTRATE 25 MG TABLET PO SCH ×2 (08:52→20:17)
[2016-11-15] MEDS: DOCUSATE SODIUM 100 MG CAPSULE PO SCH ×2 (08:53→20:18)
[2016-11-15] MEDS: FAMOTIDINE INJ 40 MG in SODIUM CHLORIDE 0.9% 100 ML IV SCH (08:53)
--- NOTE | 2016-11-15 08:59 | Event Note ---
In hospital diagnostic and therapeutic fiberoptic bronchoscopy. Bilateral specimens were sent for cytology, Gram stain, bacterial culture, fungal stains and culture, AFB stains and cultures. 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 He is on mechanical ventilation. He has thick tenacious secretions which are hard to suction. He has an abnormal chest x-ray with increased interstitial markings seen in all 5 lung manzo. Secretions are thought to be impeding his weaning process. For all of these reasons he is evaluated with fiberoptic bronchoscopy. The endotracheal tube is in good position. The distal trachea was normal. The cornelio was sharp. Right mainstem bronchus was full of thick tenacious secretions that occluded the suction channel of the scope on multiple occasions. The scope had to be withdrawn and cleaned. The 6 secretions extended into the right upper lung right middle lung and right lower lung. These are most prominent in the right lower lung. This area was lavaged and specimens were sent for the studies noted above. There is scattered areas of erosive friable bronchitis. Patient had moderately collapsible large and small airways compatible with an element of COPD The left mainstem bronchus also contained plentiful thick tenacious secretions that extended into the left upper lung and left lower lung. These were most prominent left lower lung. Left lower lung was lavaged and specimens were sent for the studies noted above. Again there were scattered areas of erosive friable bronchitis and there was mild to moderate collapsibility of the large and small airways compatible with an element of COPD The patient tolerated procedure well there were no complications Impression. 1. Amiodarone lung 2. COPD 3. Mechanical ventilation 4. Retained secretions 5. Ineffective cough 6. Abnormal chest x-ray 7. Scattered areas of mild erosive friable bronchitis 8. See above Plan. 1. Check bronchoscopy specimens 2. Follow-up chest x-ray
[2016-11-15] MEDS ORDERED: SODIUM CHLORIDE 0.9% 250 ML IV PRN (11:16)
--- NOTE | 2016-11-15 11:17 | Pulmonology Progress Note ---
Pulmonary - PN: Subj Interval history: This is a 71-year-old white male. I saw him in pulmonary consultation 2016. My impressions were. 1. Acute congestive heart failure. 2. Aortic valve replacement 2012 3. COPD. Past history tobacco abuse 3.1 Anemia. Folic acid level is low and vitamin B12 level is normal. #4 chronic renal failure 5. Low calcium and low albumin. 6. Insulin-dependent diabetes mellitus with a history of diabetic ketoacidosis 7. Hyperlipidemia 8. History of atrial fib 9. Symptoms suggestive of obstructive sleep apnea 10. Mild pulmonary hypertension. Etiology undetermined. Note elevated left ventricular filling blood pressures on echocardiogram. Previous echocardiogram was obtained when the patient was in congestive heart failure. Obstructive sleep apnea could be a contributory factor. 11. Past history of deep venous thrombophlebitis and pulmonary emboli. No evidence of either found during initial workup this admission 12. See past history 11/01/2016. Chest x-rays are pending. I have ordered the EPA and lateral for today and tomorrow. Patient still has shortness of breath and he complains of chest pain with exertion. To me this chest pain is worrisome for cardiac angina. Pulmonary hypertension can sometimes cause similar pain. Last admission the patient's pulmonary artery pressures were 65-70 mmHg. This echocardiogram was obtained while the patient was in congestive heart failure. I am going to order a repeat echocardiogram for comparison pulmonary artery pressures. Patient's on Procardia XL 60 which is a good medicine for pulmonary hypertension. We could go higher. We could add Revatio if it appears safe from a cardiology standpoint. Occasionally Apresoline works for pulmonary hypertension. Apresoline could be added if needed to help with cardiac output. Patient's H&H is 7.6/23.9. He is low folic acid. His B12 is normal. He also is low on iron. I have started replacement with iron and also folic acid. His vitamin D level is low and vitamin D replacement has been started. I am going to transfuse the patient with a unit of blood today and if he tolerates this well will probably should transfuse another unit tomorrow. This will certainly improve his oxygen carrying capacity. BNP is pending. Note sedimentation rate is 96. Doppler venograms were negative for deep venous thrombophlebitis. Ventilation perfusion lung scan showed no perfusion defects. 11/02/2016. Today's x-ray shows mild residual congestive heart failure. BNP remains elevated at 556. Noted creatinine is 4.60 with a BUN of 52 and this may falsely elevate his BNP. Patient's vitamin D is low and will order replacement. Folic acid is also low. B12 is in the normal range of 438. Posttransfusion H&H is 8.4/26.9. Iron saturation is also low. Iron has not been started. Patient has some persistent nausea. Nares are positive for MRSA. Repeat echocardiogram done 10/29/2016 shows ejection fraction 65% with grade 3 diastolic dysfunction and moderate biatrial enlargement. There is mild atrial regurgitation. Trace of aortic insufficiency. Pulmonary artery pressures are estimated to be 79 mmHg. Patient's on Procardia XL 60 and I will increase this to 120 mg daily. We did consider Revatio if cardiology feels this is safe. Would start with 20 mg every 8 hours. Alternatively we could try Apresoline 25 3 times daily which occasionally helps and may help with the patient's cardiac output. Will ask for Dr. Bueno's comment. 11/03/2016. Today's chest x-ray continues to show mild pulmonary edema. 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 CBC is stable. The rest of today's lab is pending. Dr. Lydia Ca sleep medicine note has been reviewed and I agree with his plans. Patient's was apparently asleep on the bed. She moves her foot but she never turned over or participate in our conversation today. Santosh Courtney nurse practitioner was present. Patient's had some slight fever related to blood transfusions. I do not see anything so far that looks like amiodarone along. Amiodarone was only recently added. Procardia XL was increased to 60 mg twice a day on 11/02/2016 an attempt to treat the patient's pulmonary hypertension 11/04/2016. This patient had altered mental status and had a normal CT of the head yesterday. I reviewed his medicines from last night. He received [place] 10. 4 mg of morphine and transfers seen. He is a little slow on the mental uptake this morning and I suspect the answer lies in his medicines. This patient has had heart failure that has not quite resolved. His chest x-ray has not been done today. See my note from 11/03/2016. I reviewed the number of old x-rays at his baseline x-ray should looked like x-rays that were done on 2014, 01/05/2016 and on 09/26/2016. The changes he has now are secondary to none resolved pulmonary edema. These are exactly the same changes that he has had before when he has pulmonary edema. The only outlier would be a reaction to amiodarone but he is only been on this for short period of time BNP is elevated at 307. Patient creatinine remains elevated 490 with a BUN of 52 and normal electrolytes. H&H a little bit better at 9.9/31.2. White count 6200 and platelets are 182,000. Will continue to follow his chest x-ray and lab. 11/08/2016. Chest x-ray is essentially unchanged showing increased interstitial markings in all 5 lobes of the lung. Creatinine 6.60 with a BUN of 63. Sodium 134. Potassium 4.7. Magnesium is 3.2. Natruretic peptide is 625. H&H is 9.2/ 28.6. White count is 7078 segs 11 lymphs and 9 mono s. There are no new cultures. Patient is much more alert and oriented today. He says he is breathing much better. Notes from Dr. Valorie Mascorro and Dr. Eliud Brito's have been reviewed 11/09/2016. Dr. Valorie Mascorro and I have discussed the case. We both are suspicious that we are dealing with amiodarone alone. Amiodarone was started this admission and the reconciliation by the violent crimes detective implied that the patient was already on the medicine. The patient is a terrible historian. His is asleep on the cot next to him and is not much help. He says he has been on amiodarone for years. Will stop amiodarone. I am patient change in the patient's prednisone to Solu-Medrol 40 IV push every 8 hours and will monitor his chest x-ray is O2 sats. The patient is on Plaquenil. He has no idea why he takes this medicine. Creatinine is now 7.10 with a BUN of 76. Sodium is 132. Potassium 4.9. White count is 10,886 segs 6.6 lymphs and 5.5 monocytes. There are no eosinophils. H&H is 8.9 with 27.5. 11/10/2016. On 11/09/2016 Dr. Valorie Mascorro and I decided to stop the patient's amiodarone and I started him on a moderate dose of steroids. He had had 5 lobe interstitial infiltrates that did not resolve it is suspected. Today's x-ray is better by close to 50% allowing for the fact that this x-rays a little more penetrated than his previous x-rays. Patient says his breathing is more comfortable. He is lying flat in bed. Patient also has a abnormal ultrasound of the gallbladder. I will check room air ABGs and complete pulmonary function test with pre-and postbronchodilator spirometry to get an approximate baseline of where this patient is so we have some parameters to follow down the road. Patient is possibly for placement of a dialysis line today. There are no new positive cultures. Creatinine is 6.90 with a BUN of 73. Sodium is 132 with a potassium of 5.1. White count is 8700 with 89 segs. H&H is 8.8/27.2 and platelets 260,000. Nitrated peptide is been elevated. 11/11/2016. On 11/10/2016 Dr. Avinash gray and I reviewed the case. Patient had infected gallbladder. Recommendations were to proceed with surgery. Patient's status was likely to go downhill if we did not. Patient is now after surgery. He had a laparoscopic procedure in the gallbladder was not inflamed. He is on the ventilator and he will be moved to the intensive care unit. His chest x- ray today is stable. 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 We will continue his low-dose steroid treatment. ABGs are pending. Dr. Gray has discussed this with the patient's family. 11/11/2016. 1500. Patient's postop and stable. His chest x-ray stable. He has very good oxygenation. Early tomorrow morning will start weaning procedures with CPAP 4 hour to an hour and a half he does well will go with the T-tube for approximately an hour and then check his ABGs and decide if he is strong enough to come off the ventilator. 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 Follow-up x-rays lab and ABGs have been ordered per 11/12/2016. Earlier today the patient did not do well with weaning high having back on CPAP now and he is doing well and I will go to a T-tube and will see how he does from there. His chest x-ray is stable he still has bilateral interstitial disease and with alveolar filling that I think it is related to amiodarone lung. ABGs are stable. Natruretic peptide is fallen to 242. Sodium is 132. Potassium is 3.5. Creatinine is 6.60 with a BUN of 89. White count is 12,700 with 91% segs H&H is 8.7/29.9 and 9 platelets are 266,000. Patient has done well postop. 11/13/2016. This patient did not do well on T-tube trials today. He is doing fine on CPAP. His chest x-ray shows 5 lobe increased interstitial markings with some alveolar filling. All of this is improved over last 3 or 4 days. There is no congestive heart failure. 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 ABGs on FiO2 40% shows a pH of 7.37, PCO2 of 37.4, PO2 of 150 and a bicarb of 21.8. Sodium is 132 potassium is 5.0 creatinine is 5.20 with a BUN of 83. H&H is 9.0/26.8. Red blood cell indices are low. Platelets are 259, 000. White count is 9500 with 86 segs. Natruretic peptide remains elevated 344. Dr. Andres Spaulding and I have discussed the case and coordinated our care 11/15/2016. Today's chest x-ray shows 5 lobe interstitial markings and alveolar filling which are gradually improving. 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 Patient's had thick tenacious sputum for the been hard to mobilize. Today he was evaluated with fiberoptic bronchoscopy. Specimens were sent for cytology, bacterial, fungal and AFB studies. MRSA has been isolated from both nares. Otherwise patient has no positive cultures. Patient's on stage VII of his weaning protocol. He still has trouble tolerating T-tube. This will be repeated tomorrow morning beginning at 5:00 and after 2 hours will check ABGs and hopefully he will be close to extubation. His ABGs on mechanical ventilation FiO2 of 40% shows a pH 7.458, PCO2 of 39, PO2 of 159 a bicarb of 27.7. Sodium is low at 133 potassium is 4.5 white count is 12,100 H&H is 8.7/ 25.9 and platelets of 234,000. This patient's H&H is low he needs oxygen carrying capacity in order to extubate him. I am going to transfuse him with 2 units of packed red blood cells today. Physical exam. Vital signs. See below. Face is symmetrical. Lips and tongue are normal Neck. Symmetrical no meningismus. Lymphatics. No submandibular cervical supraclavicular or epitrochlear adenopathy. Chest is fairly clear. Patient's breathing comfortably lying flat in bed Heart lateral PMI Abdomen. Nontender. Positive bowel sounds Lower extremities. Skin no evidence of chronic venous stasis. No edema. Neurologic. Cranial nerves are intact. Long track motor functions intact. Gait was not tested. Psychiatric. Oriented 3. Very poor historian. Concentration is poor. Patient appears to be low on information. The remainder the physical exam is noncontributory. Plan. 11/01/2016. See my note above. See numbers 1 through 9 below 1. Diuresis. Watch BMP. 2. Replace folic acid 3. Replace iron 4. Blood transfusion 5. Deep venous thrombophlebitis prevention protocol 6. Replace vitamin D 7. Follow-up chest x-ray #8. Repeat echocardiogram. Consider increase of Procardia. Consider Revatio say from a cardiology standpoint. An outlier for pulmonary hypertension would be Apresoline. 9. 11/02/2016. See today's note above. Increase Procardia XL 60 to twice daily . Last Dr. Moseley his opinion concerning Revatio and/or Apresoline . 11/03/2016. See today's note above. 11/04/2016. See today's note above. Considering cutting back significantly on this patient pain medicines. I suspect these are the cause of his altered mental status. We will follow-up his chest x-ray and lab. Dr. Radha mcadams will see the patient this week 12. 11/08/2016. See today's note above. . 11/09/2016. See today's note above. DC amiodarone. Change prednisone to Solu-Medrol. Dr. Mascorro and I have reviewed the case and coordinated our care . 11/10/2016. Off amiodarone. Chest x-ray better. Abnormal gallbladder studies dialysis line possible. Baseline ABGs and complete pulmonary function test with pre-and postbronchodilator spirometry. Follow-up chest x-ray . 11/11/2016. See today's note above. 16. 11/12/2016. See today's note above 17. 11/13/2016. See today's note above. Early tomorrow will try T-tube again and we will try to safely extubate this patient. 11/15/2016. See today's note above. Patient was evaluated with fiberoptic bronchoscopy. Transfused with 2 units of blood. Stage III weaning protocol. T -tube in the morning. Exam (Progress Note) - Constitutional Vitals: Period Temp Pulse Resp BP Sys/Maloney Pulse Ox Last 24 Hr 97.4 F-98.2 F 41-71 12-66 146-183/41-66 93-100 Results - Labs CBC & BMP: 11/15/16 05:30 11/15/16 05:30
[2016-11-15] MEDS: MINOXIDIL 2.5 MG TABLET PO SCH ×2 (11:19→20:18)
[2016-11-15] MEDS: SODIUM ACETATE 100 MEQ in DEXTROSE 5% 1,000 ML IV SCH (11:55)
[2016-11-15] MEDS: HEPARIN 5,000 UNIT/1 ML VIAL SUBCUT SCH ×2 (11:55→21:38)
[2016-11-15 12:21] LABS: ABG Base Excess 3.9 MMOL/L (-2.5-2.5); ABG HCO3 27.9 MMOL/L (20-26); ABG Oxygen Saturation 97.6 % (95-100); ABG PCO2 41.5 MM HG (35-48); ABG PH 7.442 (7.35-7.45); ABG TCO2 26.2 MMOL/L (23-27)
--- NOTE | 2016-11-15 16:23 | Hospitalist Progress Note ---
Assessment and Plan (1) Chronic obstructive pulmonary disease Status: Acute Current Visit: Yes Qualifiers: COPD type: unspecified COPD Qualified Code(s): J44.9 - Chronic obstructive pulmonary disease, unspecified (2) MEGAN (acute kidney injury) Status: Resolved Current Visit: No (3) Renal failure Status: Chronic Current Visit: No Qualifiers: Renal failure chronicity: chronic (4) Paroxysmal atrial fibrillation Status: Chronic Current Visit: Yes (5) Acute cholecystitis Status: Acute Assessment and plan: Postoperative day #4 laparoscopic cholecystectomy. Vent management and weaning per Pulmonary medicine. Continue treatment of CKD stage IV and Diastolic Dysfunction Heart Failure per Nephrology and Cardiology respectively. Hyperglycemia exacerbated by IV Steroids. Will increase basal insulin and adjust as necessary. Current Visit: Yes Hospitalist: Subjective Interval history: Mr. Acosta was initially admitted and being treated for cardiomyopathy and renal failure. He subsequently developed refractory nausea and was found to have cholecystitis. Now s/p laparoscopic cholecystectomy. Post-operatively, he remains on the ventilator. Pulmonary and Cardiology are following and are adjusting the patient's medications with the goal of weaning him from the ventilator. Nephrology follwing as well. Creatinine continues to improve. Exam - Constitutional Vitals: Period Temp Pulse Resp BP Sys/Maloney Pulse Ox Last 24 Hr 97.0 F-98.2 F 41-76 12-23 122-188/31-63 96-100 General appearance: other (Mechanically ventilated.) - Head Head exam: Present: normal inspection, normocephalic, atraumatic - Respiratory Respiratory exam: Present: clear to auscultation bilaterally, rhonchi. Absent: rales, wheezes - Cardiovascular Cardiovascular exam: Present: regular rate and rhythm - GI/Abdominal GI/Abdominal exam: Present: normal bowel sounds, soft. Absent: distended, tenderness - Neurological Exam Neurological exam: Present: other (Sedated on mechanical ventilation.) - Skin Skin exam: Present: normal color, warm, dry Results - Labs CBC & BMP: 11/15/16 05:30 11/15/16 05:30
--- NOTE | 2016-11-15 18:47 | Nephrology Progress Note ---
Nephrology - PN: Subj Interval history: He remains on the ventilator. Blood pressure stable Exam (PN)-Nephrology - Vital Signs Vital signs: Period Temp Pulse Resp BP Sys/Maloney Pulse Ox Last 24 Hr 97.0 F-98.2 F 41-76 12-23 122-188/31-59 96-100 Exam: Gen.: Sedated on ventilator ENT: Pupils equal round reactive to light. EOMs intact. Mucous membranes moist. Neck: Supple. No JVD or bruit. Cardiovascular: Regular rate and rhythm. No murmur rub or gallop Lungs: Clear Abdomen: Soft. Nontender. Positive bowel sounds. No organomegaly Extremities: No edema - Lab 11/15/16 05:30 11/15/16 05:30 Most recent lab results ABG pH 7.442 (7.35-7.45) 11/15/16 11:55 ABG pCO2 41.5 MM HG (35-48) 11/15/16 11:55 ABG pO2 87.0 MM HG (80-95) 11/15/16 11:55 ABG HCO3 27.9 MMOL/L (20-26) H 11/15/16 11:55 ABG O2 Saturation 97.6 % (95-100) 11/15/16 11:55 Calcium 8.2 MG/DL (8.5-10.1) L 11/15/16 05:30 Phosphorus 5.1 MG/DL (2.5-4.9) H 11/15/16 05:30 Magnesium 2.7 MG/DL (1.8-2.4) H 11/15/16 05:30 Assessment and Plan (1) Chronic kidney disease, stage IV (severe) Status: Chronic Assessment and plan: 71-year-old man admitted with: * CRF stage IV. Baseline creatinine upper threes * ARF on CRF. Renal function has improved to near his prior baseline. Urine output greater than 2 L without diuretic * Cholecystitis. Status post laparoscopic cholecystectomy * Diastolic CHF. Compensated * COPD. Wean ventilator as tolerated * Pulmonary hypertension * Prosthetic aortic valve * Diabetes mellitus * Hypertension * Anemia. Posttransfusion Current Visit: Yes (2) Diastolic CHF Status: Acute Current Visit: Yes Qualifiers: Congestive heart failure chronicity: acute on chronic Qualified Code(s): I50.33 - Acute on chronic diastolic (congestive) heart failure (3) Pulmonary edema Status: Acute Current Visit: Yes (4) Chronic obstructive pulmonary disease Status: Acute Current Visit: Yes Qualifiers: COPD type: unspecified COPD Qualified Code(s): J44.9 - Chronic obstructive pulmonary disease, unspecified (5) Diabetes mellitus Status: Chronic Current Visit: Yes Qualifiers: Diabetes mellitus type: type 2 Diabetes mellitus complication status: with kidney complications Diabetes mellitus complication detail: with chronic kidney disease 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
[2016-11-16] MEDS: ALBUTEROL 2.5 MG/3 ML NEB RESP TX SCH ×4 (01:34→20:20)
[2016-11-16] MEDS: PROPOFOL 1,000 MG/100 ML BOTTLE IV SCH ×2 (01:55→14:28)
[2016-11-16] MEDS: methylPREDNISolone SOD SUC 40 MG/1 ML VIAL IV SCH ×3 (01:55→17:18)
[2016-11-16] MEDS: SODIUM CHLORIDE 0.9% 250 ML IV SCH (02:10)
[2016-11-16] MEDS: SODIUM ACETATE 100 MEQ in DEXTROSE 5% 1,000 ML IV SCH ×2 (02:10→14:31)
[2016-11-16 05:44] LABS: Basophils % 0.1 % (0.0-0.8); Eosinophils % 0.1 % (0.00-10.9); Hematocrit 30.4 VOL% (42.0-52.0); Hemoglobin 10.5 GM/DL (14.0-18.0); Immature Granulocytes % 3.6 %; Lymphocytes # 0.4 10*3/uL (1.4-4.0); Lymphocytes % 1.8 % (21.2-54.2); Mean Corpuscular HGB Conc 34.5 GM/DL (32-36); Mean Corpuscular Hemoglobin 27 PG (27-34); Mean Corpuscular Volume 79.2 FL (87-102); Mean Platelet Volume 9.5 FL (9.6-12.0); Monocytes # 0.9 10*3/uL (0.11-0.8); Monocytes % 4.4 % (1.7-12.7); Neutrophils # 17.7 10*3/uL (1.4-7.4); Platelet Count 227 T/CUMM (130-400); Red Blood Count 3.84 MC/CUMM (3.8-5.5); Red Cell Distribution Width 16.1 % (9.3-17.3); White Blood Count 19.7 T/CUMM (4-12)
[2016-11-16 06:09] LABS: Calcium 7.6 MG/DL (8.5-10.1); Magnesium 2.7 MG/DL (1.8-2.4); Osmolality,Calculated 303.9 MOS/KG (273-304); Potassium 4.3 MMOL/L (3.5-5.1)
[2016-11-16 06:30] LABS: Band Neutrophils 2 % (0-10); Lymphocytes 3 % (20-55); Segmented Neutrophils 93 % (50-85); Total Cells Counted 100
[2016-11-16 06:31] LABS: Hypochromasia 1+; Microcytosis Slight; Ovalocytes Slight; Platelet Estimate Adequate
--- NOTE | 2016-11-16 07:39 | XRay Report ---
Referring Physician: Santosh Courtney Exam: XR chest 1V portable Date: November 16, 2016 at 3:36 AM Reason: Ventilation Comparison: Chest one view portable November 15, 2016 Findings: An endotracheal tube and feeding tube are again in place. The cardiac silhouette is again mildly enlarged, and the patient is status post sternotomy. There are scattered opacities throughout both lungs. This could represent pulmonary edema and/or pneumonia. No pneumothorax is identified, but there may be mild left pleural fluid. The osseous structures appear stable. Impression: There may be mild left pleural fluid today. The study is otherwise similar to before. PROCEDURE INTERPRETED AT [facility] DEPARTMENT OF RADIOLOGY Final Report Signed by: Dr. Malia Moreno
--- NOTE | 2016-11-16 07:41 | Event Note ---
General Surgery Progress Note Chief complaint This patient is a 71-year-old man with multiple medical problems who developed acute cholecystitis treated with laparoscopic cholecystectomy on 11/11/2016 Interval history No events overnight. Patient has been on T-tube trial since 430 this morning and appears to be doing well. He wakes up and follows commands. White blood cell count has gone up some but he is on steroids. Tolerating tube feeds well. Physical exam Abdominal incisions are clean with no evidence of infection. There are normal bowel sounds. Labs Reviewed, BUN is rising. Creatinine is relatively stable. Sodium is low. Imaging Chest x-ray stable Assessment and plan Continue tube feeds until the patient is extubated Continue pain control as needed
[2016-11-16 07:50] LABS: ABG Base Excess 3.2 MMOL/L (-2.5-2.5); ABG HCO3 27.2 MMOL/L (20-26); ABG Oxygen Saturation 94.3 % (95-100); ABG PCO2 42.5 MM HG (35-48); ABG PH 7.426 (7.35-7.45); ABG PO2 72.1 MM HG (80-95); ABG TCO2 25.1 MMOL/L (23-27)
[2016-11-16] MEDS: INSULIN GLARGINE 100 UNIT/ML SUBCUT SCH (09:48)
[2016-11-16] MEDS: INSULIN LISPRO 100 UNIT/ML SUBCUT SCH ×4 (09:48→20:36)
[2016-11-16] MEDS: FOLIC ACID 0.4 MG TABLET PO SCH (09:58)
[2016-11-16] MEDS: CHOLECALCIFEROL 1,000 UNIT TABLET PO SCH (09:59)
[2016-11-16] MEDS: MINOXIDIL 2.5 MG TABLET PO SCH ×2 (09:59→20:06)
[2016-11-16] MEDS: NIFEdipine 10 MG CAPSULE PO SCH ×3 (09:59→20:06)
[2016-11-16] MEDS: HYDROXYCHLOROQUINE 200 MG TABLET PO SCH (09:59)
[2016-11-16] MEDS: ATORVASTATIN 40 MG TABLET PO SCH (09:59)
[2016-11-16] MEDS: ALLOPURINOL 300 MG TABLET PO SCH (10:00)
[2016-11-16] MEDS: ASPIRIN EC 81 MG TABLET PO SCH (10:00)
[2016-11-16] MEDS: DOCUSATE SODIUM 100 MG CAPSULE PO SCH ×2 (10:01→20:06)
[2016-11-16] MEDS: METOPROLOL TARTRATE 25 MG TABLET PO SCH ×2 (10:01→20:06)
[2016-11-16] MEDS: FAMOTIDINE INJ 40 MG in SODIUM CHLORIDE 0.9% 100 ML IV SCH (10:02)
[2016-11-16] MEDS: MUPIROCIN 2% OINT 22 GM TUBE TOP SCH ×2 (10:15→20:07)
[2016-11-16] MEDS: COLCHICINE 0.6 MG TABLET PO SCH (10:20)
[2016-11-16] MEDS: HEPARIN 5,000 UNIT/1 ML VIAL SUBCUT SCH ×2 (10:22→21:06)
--- NOTE | 2016-11-16 10:43 | Pulmonology Progress Note ---
Pulmonary - PN: Subj Interval history: This is a 71-year-old white male. I saw him in pulmonary consultation 2016. My impressions were. 1. Acute congestive heart failure. 2. Aortic valve replacement 2012 3. COPD. Past history tobacco abuse 3.1 Anemia. Folic acid level is low and vitamin B12 level is normal. #4 chronic renal failure 5. Low calcium and low albumin. 6. Insulin-dependent diabetes mellitus with a history of diabetic ketoacidosis 7. Hyperlipidemia 8. History of atrial fib 9. Symptoms suggestive of obstructive sleep apnea 10. Mild pulmonary hypertension. Etiology undetermined. Note elevated left ventricular filling blood pressures on echocardiogram. Previous echocardiogram was obtained when the patient was in congestive heart failure. Obstructive sleep apnea could be a contributory factor. 11. Past history of deep venous thrombophlebitis and pulmonary emboli. No evidence of either found during initial workup this admission 12. See past history 11/01/2016. Chest x-rays are pending. I have ordered the EPA and lateral for today and tomorrow. Patient still has shortness of breath and he complains of chest pain with exertion. To me this chest pain is worrisome for cardiac angina. Pulmonary hypertension can sometimes cause similar pain. Last admission the patient's pulmonary artery pressures were 65-70 mmHg. This echocardiogram was obtained while the patient was in congestive heart failure. I am going to order a repeat echocardiogram for comparison pulmonary artery pressures. Patient's on Procardia XL 60 which is a good medicine for pulmonary hypertension. We could go higher. We could add Revatio if it appears safe from a cardiology standpoint. Occasionally Apresoline works for pulmonary hypertension. Apresoline could be added if needed to help with cardiac output. Patient's H&H is 7.6/23.9. He is low folic acid. His B12 is normal. He also is low on iron. I have started replacement with iron and also folic acid. His vitamin D level is low and vitamin D replacement has been started. I am going to transfuse the patient with a unit of blood today and if he tolerates this well will probably should transfuse another unit tomorrow. This will certainly improve his oxygen carrying capacity. BNP is pending. Note sedimentation rate is 96. Doppler venograms were negative for deep venous thrombophlebitis. Ventilation perfusion lung scan showed no perfusion defects. 11/02/2016. Today's x-ray shows mild residual congestive heart failure. BNP remains elevated at 556. Noted creatinine is 4.60 with a BUN of 52 and this may falsely elevate his BNP. Patient's vitamin D is low and will order replacement. Folic acid is also low. B12 is in the normal range of 438. Posttransfusion H&H is 8.4/26.9. Iron saturation is also low. Iron has not been started. Patient has some persistent nausea. Nares are positive for MRSA. Repeat echocardiogram done 10/29/2016 shows ejection fraction 65% with grade 3 diastolic dysfunction and moderate biatrial enlargement. There is mild atrial regurgitation. Trace of aortic insufficiency. Pulmonary artery pressures are estimated to be 79 mmHg. Patient's on Procardia XL 60 and I will increase this to 120 mg daily. We did consider Revatio if cardiology feels this is safe. Would start with 20 mg every 8 hours. Alternatively we could try Apresoline 25 3 times daily which occasionally helps and may help with the patient's cardiac output. Will ask for Dr. Bueno's comment. 11/03/2016. Today's chest x-ray continues to show mild pulmonary edema. 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 CBC is stable. The rest of today's lab is pending. Dr. Lydia Ca sleep medicine note has been reviewed and I agree with his plans. Patient's was apparently asleep on the bed. She moves her foot but she never turned over or participate in our conversation today. Santosh Courtney nurse practitioner was present. Patient's had some slight fever related to blood transfusions. I do not see anything so far that looks like amiodarone along. Amiodarone was only recently added. Procardia XL was increased to 60 mg twice a day on 11/02/2016 an attempt to treat the patient's pulmonary hypertension 11/04/2016. This patient had altered mental status and had a normal CT of the head yesterday. I reviewed his medicines from last night. He received Gibson 10. 4 mg of morphine and transfers seen. He is a little slow on the mental uptake this morning and I suspect the answer lies in his medicines. This patient has had heart failure that has not quite resolved. His chest x-ray has not been done today. See my note from 11/03/2016. I reviewed the number of old x-rays at his baseline x-ray should looked like x-rays that were done on 2014, 01/05/2016 and on 09/26/2016. The changes he has now are secondary to none resolved pulmonary edema. These are exactly the same changes that he has had before when he has pulmonary edema. The only outlier would be a reaction to amiodarone but he is only been on this for short period of time BNP is elevated at 307. Patient creatinine remains elevated 490 with a BUN of 52 and normal electrolytes. H&H a little bit better at 9.9/31.2. White count 6200 and platelets are 182,000. Will continue to follow his chest x-ray and lab. 11/08/2016. Chest x-ray is essentially unchanged showing increased interstitial markings in all 5 lobes of the lung. Creatinine 6.60 with a BUN of 63. Sodium 134. Potassium 4.7. Magnesium is 3.2. Natruretic peptide is 625. H&H is 9.2/ 28.6. White count is 7078 segs 11 lymphs and 9 mono s. There are no new cultures. Patient is much more alert and oriented today. He says he is breathing much better. Notes from Dr. Valorie Mascorro and Dr. Eliud Brito's have been reviewed 11/09/2016. Dr. Valorie Mascoror and I have discussed the case. We both are suspicious that we are dealing with amiodarone alone. Amiodarone was started this admission and the reconciliation by the valver implied that the patient was already on the medicine. The patient is a terrible historian. His is asleep on the cot next to him and is not much help. He says he has been on amiodarone for years. Will stop amiodarone. I am patient change in the patient's prednisone to Solu-Medrol 40 IV push every 8 hours and will monitor his chest x-ray is O2 sats. The patient is on Plaquenil. He has no idea why he takes this medicine. Creatinine is now 7.10 with a BUN of 76. Sodium is 132. Potassium 4.9. White count is 10,886 segs 6.6 lymphs and 5.5 monocytes. There are no eosinophils. H&H is 8.9 with 27.5. 11/10/2016. On 11/09/2016 Dr. Valorie Mascorro and I decided to stop the patient's amiodarone and I started him on a moderate dose of steroids. He had had 5 lobe interstitial infiltrates that did not resolve it is suspected. Today's x-ray is better by close to 50% allowing for the fact that this x-rays a little more penetrated than his previous x-rays. Patient says his breathing is more comfortable. He is lying flat in bed. Patient also has a abnormal ultrasound of the gallbladder. I will check room air ABGs and complete pulmonary function test with pre-and postbronchodilator spirometry to get an approximate baseline of where this patient is so we have some parameters to follow down the road. Patient is possibly for placement of a dialysis line today. There are no new positive cultures. Creatinine is 6.90 with a BUN of 73. Sodium is 132 with a potassium of 5.1. White count is 8700 with 89 segs. H&H is 8.8/27.2 and platelets 260,000. Nitrated peptide is been elevated. 11/11/2016. On 11/10/2016 Dr. Avinash gray and I reviewed the case. Patient had infected gallbladder. Recommendations were to proceed with surgery. Patient's status was likely to go downhill if we did not. Patient is now after surgery. He had a laparoscopic procedure in the gallbladder was not inflamed. He is on the ventilator and he will be moved to the intensive care unit. His chest x- ray today is stable. 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 We will continue his low-dose steroid treatment. ABGs are pending. Dr. Gray has discussed this with the patient's family. 11/11/2016. 1500. Patient's postop and stable. His chest x-ray stable. He has very good oxygenation. Early tomorrow morning will start weaning procedures with CPAP 4 hour to an hour and a half he does well will go with the T-tube for approximately an hour and then check his ABGs and decide if he is strong enough to come off the ventilator. 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 Follow-up x-rays lab and ABGs have been ordered per 11/12/2016. Earlier today the patient did not do well with weaning high having back on CPAP now and he is doing well and I will go to a T-tube and will see how he does from there. His chest x-ray is stable he still has bilateral interstitial disease and with alveolar filling that I think it is related to amiodarone lung. ABGs are stable. Natruretic peptide is fallen to 242. Sodium is 132. Potassium is 3.5. Creatinine is 6.60 with a BUN of 89. White count is 12,700 with 91% segs H&H is 8.7/29.9 and 9 platelets are 266,000. Patient has done well postop. 11/13/2016. This patient did not do well on T-tube trials today. He is doing fine on CPAP. His chest x-ray shows 5 lobe increased interstitial markings with some alveolar filling. All of this is improved over last 3 or 4 days. There is no congestive heart failure. 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 ABGs on FiO2 40% shows a pH of 7.37, PCO2 of 37.4, PO2 of 150 and a bicarb of 21.8. Sodium is 132 potassium is 5.0 creatinine is 5.20 with a BUN of 83. H&H is 9.0/26.8. Red blood cell indices are low. Platelets are 259, 000. White count is 9500 with 86 segs. Natruretic peptide remains elevated 344. Dr. Andres Spaulding and I have discussed the case and coordinated our care 11/15/2016. Today's chest x-ray shows 5 lobe interstitial markings and alveolar filling which are gradually improving. 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 Patient's had thick tenacious sputum for the been hard to mobilize. Today he was evaluated with fiberoptic bronchoscopy. Specimens were sent for cytology, bacterial, fungal and AFB studies. MRSA has been isolated from both nares. Otherwise patient has no positive cultures. Patient's on stage VII of his weaning protocol. He still has trouble tolerating T-tube. This will be repeated tomorrow morning beginning at 5:00 and after 2 hours will check ABGs and hopefully he will be close to extubation. His ABGs on mechanical ventilation FiO2 of 40% shows a pH 7.458, PCO2 of 39, PO2 of 159 a bicarb of 27.7. Sodium is low at 133 potassium is 4.5 white count is 12,100 H&H is 8.7/ 25.9 and platelets of 234,000. This patient's H&H is low he needs oxygen carrying capacity in order to extubate him. I am going to transfuse him with 2 units of packed red blood cells today. 11/16/2016. Today's chest x-ray is stable. Patient's ABGs are stable. He has done very well on the T-tube. He will be extubated and follow-up ABGs will be obtained. There are no positive cultures. Sodium is dropped to 129 with a potassium of 4.3. Creatinine is 3.80 with a BUN of 99. Glucoses remain elevated. H&H posttransfusion is 10.5/30.4. White blood cell count is 19,700 with 90 segs. Platelets are 227,000. Bronchoscopy results are negative so far. Cytologies are pending. Physical exam. Vital signs. See below. Face is symmetrical. Lips and tongue are normal Neck. Symmetrical no meningismus. Lymphatics. No submandibular cervical supraclavicular or epitrochlear adenopathy. Chest is fairly clear. Patient's breathing comfortably lying flat in bed Heart lateral PMI Abdomen. Nontender. Positive bowel sounds Lower extremities. Skin no evidence of chronic venous stasis. No edema. Neurologic. Cranial nerves are intact. Long track motor functions intact. Gait was not tested. Psychiatric. Oriented 3. Very poor historian. Concentration is poor. Patient appears to be low on information. The remainder the physical exam is noncontributory. Plan. 11/01/2016. See my note above. See numbers 1 through 9 below 1. Diuresis. Watch BMP. 2. Replace folic acid 3. Replace iron 4. Blood transfusion 5. Deep venous thrombophlebitis prevention protocol 6. Replace vitamin D 7. Follow-up chest x-ray #8. Repeat echocardiogram. Consider increase of Procardia. Consider Revatio say from a cardiology standpoint. An outlier for pulmonary hypertension would be Apresoline. 9. 11/02/2016. See today's note above. Increase Procardia XL 60 to twice daily . Last Dr. Moseley his opinion concerning Revatio and/or Apresoline 10. 11/03/2016. See today's note above. 11/04/2016. See today's note above. Considering cutting back significantly on this patient pain medicines. I suspect these are the cause of his altered mental status. We will follow-up his chest x-ray and lab. Dr. Radha mcadams will see the patient this week 12. 11/08/2016. See today's note above. 11/09/2016. See today's note above. DC amiodarone. Change prednisone to Solu-Medrol. Dr. Mascorro and I have reviewed the case and coordinated our care . 11/10/2016. Off amiodarone. Chest x-ray better. Abnormal gallbladder studies dialysis line possible. Baseline ABGs and complete pulmonary function test with pre-and postbronchodilator spirometry. Follow-up chest x-ray . 11/11/2016. See today's note above. 16. 11/12/2016. See today's note above 17. 11/13/2016. See today's note above. Early tomorrow will try T-tube again and we will try to safely extubate this patient. 11/15/2016. See today's note above. Patient was evaluated with fiberoptic bronchoscopy. Transfused with 2 units of blood. Stage III weaning protocol. T -tube in the morning. 11/16/2016. See today's note above. Bronchoscopy specimens negative. Cytology pending. Extubated. Follow-up ABGs. Follow-up chest x-ray ABGs and lab in the morning. Exam (Progress Note) - Constitutional Vitals: Period Temp Pulse Resp BP Sys/Maloney Pulse Ox Last 24 Hr 97.0 F-97.6 F 48-84 13-26 115-188/31-56 95-100 Results - Labs CBC & BMP: 11/16/16 05:30 11/16/16 05:30
--- NOTE | 2016-11-16 11:16 | Nephrology Progress Note ---
Nephrology - PN: Subj Interval history: He is currently on T-tube. Blood pressure is stable Exam (PN)-Nephrology - Vital Signs Vital signs: Period Temp Pulse Resp BP Sys/Maloney Pulse Ox Last 24 Hr 97.0 F-97.8 F 48-90 13-26 115-188/31-56 94-100 Exam: ENT: Intubated Cardiovascular: Regular rate and rhythm. No murmur rub or gallop Lungs: Few scattered rhonchi. No rales Extremities: No edema - Lab 11/16/16 05:30 11/16/16 05:30 Most recent lab results ABG pH 7.426 (7.35-7.45) 11/16/16 07:45 ABG pCO2 42.5 MM HG (35-48) 11/16/16 07:45 ABG pO2 72.1 MM HG (80-95) L 11/16/16 07:45 ABG HCO3 27.2 MMOL/L (20-26) H 11/16/16 07:45 ABG O2 Saturation 94.3 % (95-100) L 11/16/16 07:45 Calcium 7.6 MG/DL (8.5-10.1) L 11/16/16 05:30 Phosphorus 5.1 MG/DL (2.5-4.9) H 11/15/16 05:30 Magnesium 2.7 MG/DL (1.8-2.4) H 11/16/16 05:30 Assessment and Plan (1) Chronic kidney disease, stage IV (severe) Status: Chronic Assessment and plan: 71-year-old man admitted with: * CRF stage IV. Baseline creatinine upper threes * ARF on CRF. Renal function has improved to near his prior baseline. Urine output adequate. Discontinue hypotonic IV fluid * Cholecystitis. Status post laparoscopic cholecystectomy * Diastolic CHF. Compensated * Chronic lung disease. Ventilator is being weaned. * Pulmonary hypertension * Prosthetic aortic valve * Diabetes mellitus * Hypertension * Anemia. Posttransfusion Current Visit: Yes (2) Diastolic CHF Status: Acute Current Visit: Yes Qualifiers: Congestive heart failure chronicity: acute on chronic Qualified Code(s): I50.33 - Acute on chronic diastolic (congestive) heart failure (3) Pulmonary edema Status: Acute Current Visit: Yes (4) Chronic obstructive pulmonary disease Status: Acute Current Visit: Yes Qualifiers: COPD type: unspecified COPD Qualified Code(s): J44.9 - Chronic obstructive pulmonary disease, unspecified (5) Diabetes mellitus Status: Chronic Current Visit: Yes Qualifiers: Diabetes mellitus type: type 2 Diabetes mellitus complication status: with kidney complications Diabetes mellitus complication detail: with chronic kidney disease 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
--- NOTE | 2016-11-16 11:17 | Pathology Report from [facility] ---
[facility] [place] : [id number] PATIENT NAME : Gustabo Acosta ORDERING DR : MAGDY LIN MD CLINICAL HX: Amadierone Lung POST-OP DX: Same SPECIMEN INFO: Washing,Bronchial,MARIANO - 10 mls cloudy with white chunks. CLASS: II CLASS COMMENTS: Reactive respiratory cells, inflammationCELL BLOCK: Same CLASS LEGEND: CLASS 0 Material inadequate for diagnosis because of (see comment) CLASS I Absence of atypical or abnormal cells CLASS II Atypical Cytology but no evidence of malignancy CLASS III Cytology suggestive of but not conclusive for malignancy CLASS IV Cytology strongly suggestive of malignancy CLASS V Cytology conclusive for malignancy COLLECTED DATE: 11/15/2016 [facility] REPORT DATE: 11/16/2016 ELECTRONICALLY SIGNED BY: Lauren Renteria M.D. 11/16/2016 - 8:54:26 MTDBest
--- NOTE | 2016-11-16 11:35 | Cardiology Progress Note ---
Assessment and Plan (1) Acute exacerbation of chronic obstructive airways disease Status: Acute Assessment and plan: See plan of care listed below. Current Visit: Yes (2) Chronic kidney disease, stage IV (severe) Status: Chronic Assessment and plan: See plan of care listed below. Current Visit: Yes (3) Diabetes mellitus Status: Chronic Assessment and plan: See plan of care listed below. 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 Current Visit: Yes Qualifiers: Hypertension type: essential hypertension Qualified Code(s): I10 - Essential (primary) hypertension (5) Dyslipidemia Status: Chronic Assessment and plan: See plan of care listed below. Current Visit: No (6) Anemia Status: Chronic Assessment and plan: See plan of care listed below. Current Visit: Yes (7) Paroxysmal atrial fibrillation Status: Chronic Assessment and plan: See plan of care listed below. Current Visit: Yes (8) Status post aortic valve replacement with bioprosthetic valve Status: Chronic Assessment and plan: See plan of care listed below. Current Visit: Yes (9) Acute cholecystitis Status: Acute Assessment and plan: See plan of care listed below. Current Visit: Yes (10) Diastolic dysfunction Status: Acute Assessment and plan: See plan of care listed below. Current Visit: Yes Cardiology - PN: Subj Interval history: It Security Analyst: Dr. Franklin PCP: Dr. Min Summary - Mr. Acosta is a 71-year-old male with a past medical history of diabetes, hypertension, diastolic heart failure, paroxysmal atrial fibrillation (He had been on Coumadin in the past but it was stopped at the CT because of noncompliance and difficulty keeping the pro time therapeutic), chronic renal insufficiency, aortic stenosis (now status post tissue aortic valve replacement), history of pulmonary embolism, untreated obstructive sleep apnea and GERD. Patient was admitted to [facility] with recurrent diastolic heart failure. Echo Doppler done September 21, 2016 showed ejection fraction of 60% with grade 3 diastolic dysfunction, moderate dilated left atrium, mitral annular calcification, the aortic tissue valve was sclerotic but open widely. The right ventricle is dilated severe TR PA pressure 65-70 with no effusion. Patient has been anemic throughout this admission. Suspect this is anemia of chronic disease as patient does have history of chronic renal failure. Currently being managed by Dr. Pipo Spaulding. Cardiology was consulted for further assistance in the management of his diastolic heart failure. November UPDATE: Patient was seen and examined in the CCU. He is currently on T-tube trial, tolerating well. Hopeful for extubation later today. He is status post cholecystectomy per Dr. Gray. Today postop day #5. Patient underwent bronchoscopy yesterday which revealed amiodarone lung, COPD and scattered areas of mild erosive friable bronchitis. Amiodarone was discontinued last week. Pulmonary is following. Creatinine continues to improve, 3.8 this morning with a BUN of 99. Sodium is 129. Potassium 4.3. H& H improved to 10.5 and 30.4 after receiving 2 units packed red blood cells. Dr. Pipo Spaulding is following. Blood pressure is better controlled this morning. Abdominal incisions are healing well without signs of infection. Vital signs are stable. Patient is currently normal sinus rhythm with heart rates in the 70s without any overt arrhythmias or ectopy noted. Assessment/plan: 1. ACUTE EXACERBATION OF CHRONIC OBSTRUCTIVE AIRWAYS DISEASE - Management per pulmonary. Continue breathing treatments and steroid therapy. Amiodarone has been discontinued last week. 2. PULMONARY HYPERTENSION - Etiology undetermined. RVSP estimated at 79mmHg plus the right atrial pressure. Continue current plan of care. 3. HYPERTENSION - Patient's blood pressure is well controlled today. Will continue current plan of care at this time. Will further adjust as needed. Avoiding CANDY inhibitor and ARB due to fear of worsening renal function. Avoiding increasing beta jim dose due to patient's significant lung disease. Will make further adjustments as needed throughout his hospital stay. 4. ANEMIA - Likely anemia of chronic disease as patient has chronic renal disease. Stool was negative for occult blood this admission. No overt bleeding noted. H&H improved this morning after receiving 2 units of packed red blood cells. Continue to monitor closely with Daily CBC. 5. PAROXYSMAL ATRIAL FIBRILLATION - Currently in normal sinus rhythm. Amiodarone has been discontinued as this may be contributing to his lung disease. Suspect that he will develop Afib with RVR as we discontinue the Amiodarone but it will take some time for this to wear off. We will adjust and address this as it arises. 6. CHRONIC RENAL FAILURE - Creatinine continues to improve, 3.8 this morning. Management per Dr. Pipo Spaulding. 7. S/P AVR - Stable. Tissue aortic valve. Continue current plan of care. 8. HISTORY OF CVA - Patient is extremely high risk for stroke however he also has very significant anemia and is not a candidate for anticoagulation at this time. 9. ACUTE CHOLECYSTITIS - Patient is now status post cholecystectomy. Postop day #5. Abdominal incisions are healing well no signs of infection. Surgery is following. 10. DIASTOLIC CHF - Compensated. Further plan and addendum to follow per Dr. Witt. Exam (Progress Note) - Constitutional Vitals: Period Temp Pulse Resp BP Sys/Maloney Pulse Ox Last 24 Hr 97.0 F-97.8 F 48-90 13-26 115-188/31-56 94-100 Exam: General: Awake and alert, currently on T-tube trial. HEENT: PERRL, normocephalic, atraumatic. Mucous membranes moist. No jaundice noted. Conjunctiva moist and clear, sclerae anicteric Neck: No JVD/HJR, no thyromegaly or lymphadenopathy noted. No carotid bruit appreciated Cardiac: Regular rate and rhythm. Systolic murmur. Lungs: Few rhonchi auscultated. No wheezing auscultated today. Patient on the ventilator. Abdomen: Soft, normal bowel sounds. Abdominal incisions healing well without signs of infection. Extremities: No clubbing, cyanosis noted. No edema noted. Upper extremity pulses 2+. Lower extremity pulses 2+. Capillary refill less than 3 seconds. Neuro: Unable to fully assess as patient is sedated on the ventilator. Result/EKG - Labs CBC & BMP: 11/16/16 05:30 11/16/16 05:30 Lab Results: I have reviewed the past 24 hour labs Labs: Laboratory Results - last 24 hr 11/15/16 11/15/16 11/15/16 09:47 11:27 11:55 WBC RBC Hgb Hct MCV MCH MCHC RDW Plt Count MPV Neut % (Auto) Lymph % (Auto) Monona % (Auto) Eos % (Auto) Baso % (Auto) Neut # (Auto) Lymph # (Auto) Mon[place] # (Auto) Eos # (Auto) Baso # (Auto) Total Counted Immature Gran % Nucleated RBC % Immature Gran # Segmented Neutrophils Band Neutrophils Lymphocytes Monocytes Nucleated RBCs # Platelet Estimate Hypochromasia Microcytosis Ovalocytes Morphology Comment ABG pH 7.442 ABG pCO2 41.5 ABG pO2 87.0 ABG HCO3 27.9 H ABG Total CO2 26.2 ABG O2 Saturation 97.6 ABG Base Excess 3.9 H Sodium Potassium Chloride Carbon Dioxide Anion Gap BUN Creatinine GFR Calculation BUN/Creatinine Ratio Glucose POC Glucose 452 H 439 H Calculated Osmolality Calcium Magnesium Blood Type Antibody Screen Crossmatch 11/15/16 11/15/16 11/15/16 12:00 17:15 19:23 WBC RBC Hgb Hct MCV MCH MCHC RDW Plt Count MPV Neut % (Auto) Lymph % (Auto) Monona % (Auto) Eos % (Auto) Baso % (Auto) Neut # (Auto) Lymph # (Auto) Mon[place] # (Auto) Eos # (Auto) Baso # (Auto) Total Counted Immature Gran % Nucleated RBC % Immature Gran # Segmented Neutrophils Band Neutrophils Lymphocytes Monocytes Nucleated RBCs # Platelet Estimate Hypochromasia Microcytosis Ovalocytes Morphology Comment ABG pH ABG pCO2 ABG pO2 ABG HCO3 ABG Total CO2 ABG O2 Saturation ABG Base Excess Sodium Potassium Chloride Carbon Dioxide Anion Gap BUN Creatinine GFR Calculation BUN/Creatinine Ratio Glucose POC Glucose 363 H 332 H Calculated Osmolality Calcium Magnesium Blood Type A POSITIVE Antibody Screen Negative Crossmatch See Detail 11/16/16 11/16/16 11/16/16 05:30 05:30 07:29 WBC 19.7 H D RBC 3.84 Hgb 10.5 L D Hct 30.4 L MCV 79.2 L MCH 27 MCHC 34.5 RDW 16.1 Plt Count 227 MPV 9.5 L Neut % (Auto) 90.0 H Lymph % (Auto) 1.8 L Monona % (Auto) 4.4 Eos % (Auto) 0.1 Baso % (Auto) 0.1 Neut # (Auto) 17.7 H Lymph # (Auto) 0.4 L Mon[place] # (Auto) 0.9 H Eos # (Auto) 0.0 Baso # (Auto) 0.0 Total Counted 100 Immature Gran % 3.6 Nucleated RBC % 0.0 Immature Gran # 0.70 Segmented Neutrophils 93 H Band Neutrophils 2 Lymphocytes 3 L Monocytes 2 Nucleated RBCs # 0.00 Platelet Estimate Adequate Hypochromasia 1+ Microcytosis Slight Ovalocytes Slight Morphology Comment ABG pH ABG pCO2 ABG pO2 ABG HCO3 ABG Total CO2 ABG O2 Saturation ABG Base Excess Sodium 129 L Potassium 4.3 Chloride 89 L Carbon Dioxide 27 Anion Gap 17.3 H BUN 99 H D Creatinine 3.80 H GFR Calculation 22 BUN/Creatinine Ratio 26.00 H Glucose 361 H POC Glucose 373 H Calculated Osmolality 303.9 Calcium 7.6 L Magnesium 2.7 H Blood Type Antibody Screen Crossmatch 11/16/16 07:45 WBC RBC Hgb Hct MCV MCH MCHC RDW Plt Count MPV Neut % (Auto) Lymph % (Auto) [place] % (Auto) Eos % (Auto) Baso % (Auto) Neut # (Auto) Lymph # (Auto) [place] # (Auto) Eos # (Auto) Baso # (Auto) Total Counted Immature Gran % Nucleated RBC % Immature Gran # Segmented Neutrophils Band Neutrophils Lymphocytes Monocytes Nucleated RBCs # Platelet Estimate Hypochromasia Microcytosis Ovalocytes Morphology Comment ABG pH 7.426 ABG pCO2 42.5 ABG pO2 72.1 L ABG HCO3 27.2 H ABG Total CO2 25.1 ABG O2 Saturation 94.3 L ABG Base Excess 3.2 H Sodium Potassium Chloride Carbon Dioxide Anion Gap BUN Creatinine GFR Calculation BUN/Creatinine Ratio Glucose POC Glucose Calculated Osmolality Calcium Magnesium Blood Type Antibody Screen Crossmatch
--- NOTE | 2016-11-16 13:51 | Hospitalist Progress Note ---
Assessment and Plan (1) Chronic obstructive pulmonary disease Status: Acute Current Visit: Yes Qualifiers: Qualified Code(s): J44.9 - Chronic obstructive pulmonary disease, unspecified (2) MEGAN (acute kidney injury) Status: Resolved Current Visit: No (3) Renal failure Status: Chronic Current Visit: No (4) Paroxysmal atrial fibrillation Status: Chronic Current Visit: Yes (5) Acute cholecystitis Status: Acute Assessment and plan: 11/15/16. Postoperative day #4 laparoscopic cholecystectomy. Vent management and weaning per Pulmonary medicine. Continue treatment of CKD stage IV and Diastolic Dysfunction Heart Failure per Nephrology and Cardiology respectively. Hyperglycemia exacerbated by IV Steroids. Will increase basal insulin and adjust as necessary. 11/16/16. Postoperative day #5 s/p laparoscopic cholecystectomy. Unable to wean from the vent after surgery but now likely extubation today. Seems to be doing well from that standpoint. He has remained hemodynamically stable. Of note, WBC count increased to 19K. No associated fever or hypotension. Abdominal incisions are healing well without evidence of infection. Not currently on abx. Patient is on IV steroids but has been on these for several days. CXR done today with questionable infiltrate vs pulmonary edema. No obvious indication for abx right now. All labs do seem somewhat c/w possible hemoconcentration. Therefore will increase IVF's and will monitor WBC count. Culture with any fever or decompensation prior to initiation of abx. Current Visit: Yes Hospitalist: Subjective Interval history: Mr. Acosta was initially admitted and being treated for cardiomyopathy and renal failure. He subsequently developed refractory nausea and was found to have cholecystitis. Now s/p laparoscopic cholecystectomy. Post-operatively, he remained on the ventilator. Pulmonary and Cardiology are following and are adjusting the patient's medications with the goal of weaning him from the ventilator, extubation likely today. Nephrology follwing as well for MEGAN on CKD. Creatinine continues to improve. Exam - Constitutional Vitals: Period Temp Pulse Resp BP Sys/Maloney Pulse Ox Last 24 Hr 97.0 F-97.8 F 48-90 13-26 115-188/31-56 94-100 Exam: General appearance: other (Mechanically ventilated.) - Head Head exam: Present: normal inspection, normocephalic, atraumatic - Respiratory Respiratory exam: Present: clear to auscultation bilaterally, rhonchi. Absent: rales, wheezes - Cardiovascular Cardiovascular exam: Present: regular rate and rhythm - GI/Abdominal GI/Abdominal exam: Present: normal bowel sounds, soft. Absent: distended, tenderness - Neurological Exam Neurological exam: Present: other (sluggish on exam. likely extubation today.) - Skin Skin exam: Present: normal color, warm, dry Results - Labs CBC & BMP: 11/16/16 05:30 11/16/16 05:30
[2016-11-16] MEDS: SODIUM CHLORIDE 0.9% 1,000 ML IV SCH ×2 (14:30→23:00)
[2016-11-16 14:49] LABS: ABG HCO3 28.9 MMOL/L (20-26); ABG Oxygen Saturation 95.7 % (95-100); ABG PH 7.477 (7.35-7.45); ABG PO2 75.1 MM HG (80-95)
[2016-11-17 03:59] LABS: ABG Base Excess 4.1 MMOL/L (-2.5-2.5); ABG HCO3 28.1 MMOL/L (20-26); ABG Oxygen Saturation 95.9 % (95-100); ABG PH 7.508 (7.35-7.45); ABG PO2 76.9 MM HG (80-95); ABG TCO2 24.5 MMOL/L (23-27); Allen Test Positive
[2016-11-17 04:40] LABS: Eosinophils # 0.2 10*3/uL (0.0-0.87); Eosinophils % 0.7 % (0.00-10.9); Hematocrit 28.9 VOL% (42.0-52.0); Hemoglobin 9.9 GM/DL (14.0-18.0); Immature Granulocytes % 3.3 %; Immature Granulocytes Absolute 0.75 #; Lymphocytes # 0.7 10*3/uL (1.4-4.0); Mean Corpuscular HGB Conc 34.3 GM/DL (32-36); Mean Corpuscular Hemoglobin 27 PG (27-34); Mean Platelet Volume 9.9 FL (9.6-12.0); Monocytes # 1.7 10*3/uL (0.11-0.8); Monocytes % 7.4 % (1.7-12.7); Neutrophils # 19.5 10*3/uL (1.4-7.4); Neutrophils % 85.6 % (38.7-73.9); Platelet Count 260 T/CUMM (130-400); Red Blood Count 3.66 MC/CUMM (3.8-5.5); Red Cell Distribution Width 16.6 % (9.3-17.3); White Blood Count 22.8 T/CUMM (4-12)
[2016-11-17] MEDS: methylPREDNISolone SOD SUC 40 MG/1 ML VIAL IV SCH ×3 (04:53→16:45)
[2016-11-17 05:06] LABS: Calcium 7.8 MG/DL (8.5-10.1); Magnesium 2.3 MG/DL (1.8-2.4); Osmolality,Calculated 303.4 MOS/KG (273-304)
[2016-11-17 05:31] LABS: Band Neutrophils 2 % (0-10); Lymphocytes 3 % (20-55); Metamyelocytes 1 %; Segmented Neutrophils 88 % (50-85); Total Cells Counted 100
[2016-11-17 05:32] LABS: Hypochromasia Slight; Microcytosis 1+; Ovalocytes Slight
[2016-11-17 05:33] LABS: Platelet Estimate Normal
--- NOTE | 2016-11-17 07:22 | Event Note ---
General Surgery Progress Note Chief complaint This patient is a 71-year-old man with multiple medical problems who developed acute cholecystitis treated with laparoscopic cholecystectomy on 11/11/2016 Interval history No events overnight. Extubated yesterday. Tolerating diet well. Physical exam Abdominal incisions are clean with no evidence of infection. There are normal bowel sounds. Labs Reviewed, BUN is rising. Creatinine is rising slightly. Imaging Chest x-ray stable Assessment and plan Doing okay from gallbladder surgery Continue current care I am available for dialysis catheter if needed
[2016-11-17] MEDS: ALBUTEROL 2.5 MG/3 ML NEB RESP TX SCH ×4 (07:49→19:40)
[2016-11-17] MEDS: SODIUM CHLORIDE 0.9% 1,000 ML IV SCH ×4 (07:53→19:08)
[2016-11-17] MEDS: INSULIN LISPRO 100 UNIT/ML SUBCUT SCH ×4 (08:06→20:23)
--- NOTE | 2016-11-17 08:23 | XRay Report ---
Exam: XR chest 1V portable Indication: Congestive heart failure, cardiomegaly Comparison study: 11/16/2016 Findings: Cardiac silhouette is enlarged, similar to prior. Diffuse patchy perihilar and basilar interstitial opacities are noted. Additional scattered patchy airspace opacities are noted throughout both lungs and in the left lung base. There is no pneumothorax. Trace left pleural effusion is not excluded. Median sternotomy wiring appears stable from prior. Impression: Cardiomegaly with slight worsening of diffuse interstitial airspace opacities may represent multifocal infectious/inflammatory infiltrates or interstitial edema with basilar atelectasis. Trace left pleural effusion is also suspected. PROCEDURE INTERPRETED AT [facility] DEPARTMENT OF RADIOLOGY Final Report Signed by: Brent Gregory
--- NOTE | 2016-11-17 10:03 | Pulmonology Progress Note ---
Pulmonary - PN: Subj Interval history: This is a 71-year-old white male. I saw him in pulmonary consultation 2016. My impressions were. 1. Acute congestive heart failure. 2. Aortic valve replacement 2012 3. COPD. Past history tobacco abuse 3.1 Anemia. Folic acid level is low and vitamin B12 level is normal. #4 chronic renal failure 5. Low calcium and low albumin. 6. Insulin-dependent diabetes mellitus with a history of diabetic ketoacidosis 7. Hyperlipidemia 8. History of atrial fib 9. Symptoms suggestive of obstructive sleep apnea 10. Mild pulmonary hypertension. Etiology undetermined. Note elevated left ventricular filling blood pressures on echocardiogram. Previous echocardiogram was obtained when the patient was in congestive heart failure. Obstructive sleep apnea could be a contributory factor. 11. Past history of deep venous thrombophlebitis and pulmonary emboli. No evidence of either found during initial workup this admission 12. See past history 11/01/2016. Chest x-rays are pending. I have ordered the EPA and lateral for today and tomorrow. Patient still has shortness of breath and he complains of chest pain with exertion. To me this chest pain is worrisome for cardiac angina. Pulmonary hypertension can sometimes cause similar pain. Last admission the patient's pulmonary artery pressures were 65-70 mmHg. This echocardiogram was obtained while the patient was in congestive heart failure. I am going to order a repeat echocardiogram for comparison pulmonary artery pressures. Patient's on Procardia XL 60 which is a good medicine for pulmonary hypertension. We could go higher. We could add Revatio if it appears safe from a cardiology standpoint. Occasionally Apresoline works for pulmonary hypertension. Apresoline could be added if needed to help with cardiac output. Patient's H&H is 7.6/23.9. He is low folic acid. His B12 is normal. He also is low on iron. I have started replacement with iron and also folic acid. His vitamin D level is low and vitamin D replacement has been started. I am going to transfuse the patient with a unit of blood today and if he tolerates this well will probably should transfuse another unit tomorrow. This will certainly improve his oxygen carrying capacity. BNP is pending. Note sedimentation rate is 96. Doppler venograms were negative for deep venous thrombophlebitis. Ventilation perfusion lung scan showed no perfusion defects. 11/02/2016. Today's x-ray shows mild residual congestive heart failure. BNP remains elevated at 556. Noted creatinine is 4.60 with a BUN of 52 and this may falsely elevate his BNP. Patient's vitamin D is low and will order replacement. Folic acid is also low. B12 is in the normal range of 438. Posttransfusion H&H is 8.4/26.9. Iron saturation is also low. Iron has not been started. Patient has some persistent nausea. Nares are positive for MRSA. Repeat echocardiogram done 10/29/2016 shows ejection fraction 65% with grade 3 diastolic dysfunction and moderate biatrial enlargement. There is mild atrial regurgitation. Trace of aortic insufficiency. Pulmonary artery pressures are estimated to be 79 mmHg. Patient's on Procardia XL 60 and I will increase this to 120 mg daily. We did consider Revatio if cardiology feels this is safe. Would start with 20 mg every 8 hours. Alternatively we could try Apresoline 25 3 times daily which occasionally helps and may help with the patient's cardiac output. Will ask for Dr. Bueno's comment. 11/03/2016. Today's chest x-ray continues to show mild pulmonary edema. 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 CBC is stable. The rest of today's lab is pending. Dr. Lydia Ca sleep medicine note has been reviewed and I agree with his plans. Patient's was apparently asleep on the bed. She moves her foot but she never turned over or participate in our conversation today. Santosh Courtney nurse practitioner was present. Patient's had some slight fever related to blood transfusions. I do not see anything so far that looks like amiodarone along. Amiodarone was only recently added. Procardia XL was increased to 60 mg twice a day on 11/02/2016 an attempt to treat the patient's pulmonary hypertension 11/04/2016. This patient had altered mental status and had a normal CT of the head yesterday. I reviewed his medicines from last night. He received [place] 10. 4 mg of morphine and transfers seen. He is a little slow on the mental uptake this morning and I suspect the answer lies in his medicines. This patient has had heart failure that has not quite resolved. His chest x-ray has not been done today. See my note from 11/03/2016. I reviewed the number of old x-rays at his baseline x-ray should looked like x-rays that were done on 2014, 01/05/2016 and on 09/26/2016. The changes he has now are secondary to none resolved pulmonary edema. These are exactly the same changes that he has had before when he has pulmonary edema. The only outlier would be a reaction to amiodarone but he is only been on this for short period of time BNP is elevated at 307. Patient creatinine remains elevated 490 with a BUN of 52 and normal electrolytes. H&H a little bit better at 9.9/31.2. White count 6200 and platelets are 182,000. Will continue to follow his chest x-ray and lab. 11/08/2016. Chest x-ray is essentially unchanged showing increased interstitial markings in all 5 lobes of the lung. Creatinine 6.60 with a BUN of 63. Sodium 134. Potassium 4.7. Magnesium is 3.2. Natruretic peptide is 625. H&H is 9.2/ 28.6. White count is 7078 segs 11 lymphs and 9 mono s. There are no new cultures. Patient is much more alert and oriented today. He says he is breathing much better. Notes from Dr. Valorie Mascorro and Dr. Eliud Brito's have been reviewed 11/09/2016. Dr. Valorie Mascorro and I have discussed the case. We both are suspicious that we are dealing with amiodarone alone. Amiodarone was started this admission and the reconciliation by the billing administrator implied that the patient was already on the medicine. The patient is a terrible historian. His is asleep on the cot next to him and is not much help. He says he has been on amiodarone for years. Will stop amiodarone. I am patient change in the patient's prednisone to Solu-Medrol 40 IV push every 8 hours and will monitor his chest x-ray is O2 sats. The patient is on Plaquenil. He has no idea why he takes this medicine. Creatinine is now 7.10 with a BUN of 76. Sodium is 132. Potassium 4.9. White count is 10,886 segs 6.6 lymphs and 5.5 monocytes. There are no eosinophils. H&H is 8.9 with 27.5. 11/10/2016. On 11/09/2016 Dr. Valorie Mascorro and I decided to stop the patient's amiodarone and I started him on a moderate dose of steroids. He had had 5 lobe interstitial infiltrates that did not resolve it is suspected. Today's x-ray is better by close to 50% allowing for the fact that this x-rays a little more penetrated than his previous x-rays. Patient says his breathing is more comfortable. He is lying flat in bed. Patient also has a abnormal ultrasound of the gallbladder. I will check room air ABGs and complete pulmonary function test with pre-and postbronchodilator spirometry to get an approximate baseline of where this patient is so we have some parameters to follow down the road. Patient is possibly for placement of a dialysis line today. There are no new positive cultures. Creatinine is 6.90 with a BUN of 73. Sodium is 132 with a potassium of 5.1. White count is 8700 with 89 segs. H&H is 8.8/27.2 and platelets 260,000. Nitrated peptide is been elevated. 11/11/2016. On 11/10/2016 Dr. Avinash gray and I reviewed the case. Patient had infected gallbladder. Recommendations were to proceed with surgery. Patient's status was likely to go downhill if we did not. Patient is now after surgery. He had a laparoscopic procedure in the gallbladder was not inflamed. He is on the ventilator and he will be moved to the intensive care unit. His chest x- ray today is stable. 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 We will continue his low-dose steroid treatment. ABGs are pending. Dr. Gray has discussed this with the patient's family. 11/11/2016. 1500. Patient's postop and stable. His chest x-ray stable. He has very good oxygenation. Early tomorrow morning will start weaning procedures with CPAP 4 hour to an hour and a half he does well will go with the T-tube for approximately an hour and then check his ABGs and decide if he is strong enough to come off the ventilator. 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 Follow-up x-rays lab and ABGs have been ordered per 11/12/2016. Earlier today the patient did not do well with weaning high having back on CPAP now and he is doing well and I will go to a T-tube and will see how he does from there. His chest x-ray is stable he still has bilateral interstitial disease and with alveolar filling that I think it is related to amiodarone lung. ABGs are stable. Natruretic peptide is fallen to 242. Sodium is 132. Potassium is 3.5. Creatinine is 6.60 with a BUN of 89. White count is 12,700 with 91% segs H&H is 8.7/29.9 and 9 platelets are 266,000. Patient has done well postop. 11/13/2016. This patient did not do well on T-tube trials today. He is doing fine on CPAP. His chest x-ray shows 5 lobe increased interstitial markings with some alveolar filling. All of this is improved over last 3 or 4 days. There is no congestive heart failure. 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 ABGs on FiO2 40% shows a pH of 7.37, PCO2 of 37.4, PO2 of 150 and a bicarb of 21.8. Sodium is 132 potassium is 5.0 creatinine is 5.20 with a BUN of 83. H&H is 9.0/26.8. Red blood cell indices are low. Platelets are 259, 000. White count is 9500 with 86 segs. Natruretic peptide remains elevated 344. Dr. Andres Spaulding and I have discussed the case and coordinated our care 11/15/2016. Today's chest x-ray shows 5 lobe interstitial markings and alveolar filling which are gradually improving. 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 Patient's had thick tenacious sputum for the been hard to mobilize. Today he was evaluated with fiberoptic bronchoscopy. Specimens were sent for cytology, bacterial, fungal and AFB studies. MRSA has been isolated from both nares. Otherwise patient has no positive cultures. Patient's on stage VII of his weaning protocol. He still has trouble tolerating T-tube. This will be repeated tomorrow morning beginning at 5:00 and after 2 hours will check ABGs and hopefully he will be close to extubation. His ABGs on mechanical ventilation FiO2 of 40% shows a pH 7.458, PCO2 of 39, PO2 of 159 a bicarb of 27.7. Sodium is low at 133 potassium is 4.5 white count is 12,100 H&H is 8.7/ 25.9 and platelets of 234,000. This patient's H&H is low he needs oxygen carrying capacity in order to extubate him. I am going to transfuse him with 2 units of packed red blood cells today. 11/16/2016. Today's chest x-ray is stable. Patient's ABGs are stable. He has done very well on the T-tube. He will be extubated and follow-up ABGs will be obtained. There are no positive cultures. Sodium is dropped to 129 with a potassium of 4.3. Creatinine is 3.80 with a BUN of 99. Glucoses remain elevated. H&H posttransfusion is 10.5/30.4. White blood cell count is 19,700 with 90 segs. Platelets are 227,000. Bronchoscopy results are negative so far. Cytologies are pending. 11/17/2016. Patient was extubated on 11/16/2016 and since that time he is done well. His chest x-ray shows 5 lobe alveolar and interstitial changes related to his amiodarone lung. We need to continue his steroids and this will probably continue to improve. This patient has had pulmonary edema along the way so will have to be careful with his volume status. ABGs this morning on FiO2 28% show a pH 7.51, PCO2 34, PO2 of 77 and bicarb 28.1 sodium is increased to 133. Potassium 4.0. Creatinine is 4.10 with a BUN of 110. White count remains elevated 22,800 with 86 segs. Bronchoscopy specimens are growing a gram -negative heidi which has not been identified yet. These specimens were obtained on the morning of 11/15/2016 patient's previously had MRSA isolated from his nares Physical exam. Vital signs. See below. Psychiatric. Appears to be confused. He is not agitated Face is symmetrical. Lips and tongue are normal Neck. Symmetrical no meningismus. Lymphatics. No submandibular cervical supraclavicular or epitrochlear adenopathy. Chest is fairly clear. Patient's breathing comfortably lying flat in bed Heart lateral PMI Abdomen. Nontender. Positive bowel sounds Lower extremities. Skin no evidence of chronic venous stasis. No edema. Neurologic. Cranial nerves are intact. Long track motor functions intact. Gait was not tested. The remainder the physical exam is noncontributory. Plan. 11/01/2016. See my note above. See numbers 1 through 9 below 1. Diuresis. Watch BMP. 2. Replace folic acid 3. Replace iron 4. Blood transfusion 5. Deep venous thrombophlebitis prevention protocol 6. Replace vitamin D 7. Follow-up chest x-ray #8. Repeat echocardiogram. Consider increase of Procardia. Consider Revatio say from a cardiology standpoint. An outlier for pulmonary hypertension would be Apresoline. 9. 11/02/2016. See today's note above. Increase Procardia XL 60 to twice daily . Last Dr. Moseley his opinion concerning Revatio and/or Apresoline 10. 11/03/2016. See today's note above. . 11/04/2016. See today's note above. Considering cutting back significantly on this patient pain medicines. I suspect these are the cause of his altered mental status. We will follow-up his chest x-ray and lab. Dr. Radha mcadams will see the patient this week 12. 11/08/2016. See today's note above. . 11/09/2016. See today's note above. DC amiodarone. Change prednisone to Solu-Medrol. Dr. Mascorro and I have reviewed the case and coordinated our care . 11/10/2016. Off amiodarone. Chest x-ray better. Abnormal gallbladder studies dialysis line possible. Baseline ABGs and complete pulmonary function test with pre-and postbronchodilator spirometry. Follow-up chest x-ray 15. 11/11/2016. See today's note above. 16. 11/12/2016. See today's note above 17. 11/13/2016. See today's note above. Early tomorrow will try T-tube again and we will try to safely extubate this patient. . 11/15/2016. See today's note above. Patient was evaluated with fiberoptic bronchoscopy. Transfused with 2 units of blood. Stage III weaning protocol. T -tube in the morning. . 11/16/2016. See today's note above. Bronchoscopy specimens negative. Cytology pending. Extubated. Follow-up ABGs. Follow-up chest x-ray ABGs and lab in the morning. 20. 11/17/2016. See today's note above. Extubated 11/16/2016. Ventilation therapy. Follow-up chest x-ray and ABGs for a few more days. Continues to Exam (Progress Note) - Constitutional Vitals: Period Temp Pulse Resp BP Sys/Maloney Pulse Ox Last 24 Hr 96.0 F-98.8 F 66-91 14-23 125-158/37-52 88-99 Results - Labs CBC & BMP: 11/17/16 04:30 11/17/16 04:30
[2016-11-17] MEDS: MINOXIDIL 2.5 MG TABLET PO SCH ×2 (10:07→20:22)
[2016-11-17] MEDS: FOLIC ACID 0.4 MG TABLET PO SCH (10:10)
[2016-11-17] MEDS: NIFEdipine 10 MG CAPSULE PO SCH ×3 (10:11→20:22)
[2016-11-17] MEDS: ATORVASTATIN 40 MG TABLET PO SCH (10:12)
[2016-11-17] MEDS: METOPROLOL TARTRATE 25 MG TABLET PO SCH ×2 (10:12→20:23)
[2016-11-17] MEDS: CHOLECALCIFEROL 1,000 UNIT TABLET PO SCH (10:15)
[2016-11-17] MEDS: DOCUSATE SODIUM 100 MG CAPSULE PO SCH ×2 (10:15→20:24)
[2016-11-17] MEDS: ASPIRIN EC 81 MG TABLET PO SCH (10:15)
[2016-11-17] MEDS: ALLOPURINOL 300 MG TABLET PO SCH (10:17)
[2016-11-17] MEDS: INSULIN GLARGINE 100 UNIT/ML SUBCUT SCH (10:19)
[2016-11-17] MEDS: HEPARIN 5,000 UNIT/1 ML VIAL SUBCUT SCH ×2 (10:27→21:30)
[2016-11-17] MEDS: FAMOTIDINE INJ 40 MG in SODIUM CHLORIDE 0.9% 100 ML IV SCH (10:31)
[2016-11-17] MEDS: MUPIROCIN 2% OINT 22 GM TUBE TOP SCH ×2 (10:34→20:24)
--- NOTE | 2016-11-17 10:48 | Cardiology Progress Note ---
Assessment and Plan (1) Acute exacerbation of chronic obstructive airways disease Status: Acute Assessment and plan: See plan of care listed below. Current Visit: Yes (2) Chronic kidney disease, stage IV (severe) Status: Chronic Assessment and plan: See plan of care listed below. Current Visit: Yes (3) Diabetes mellitus Status: Chronic Assessment and plan: See plan of care listed below. Current Visit: Yes Qualifiers: Diabetes mellitus type: type 2 Diabetes mellitus complication status: with kidney complications Diabetes mellitus complication detail: with chronic kidney disease Diabetes mellitus truck terminal manager insulin use: with truck terminal manager use Chronic kidney disease stage: stage 4 (severe) Qualified Code(s): E11.22 - Type 2 diabetes mellitus with diabetic chronic kidney disease; N18.4 - Chronic kidney disease, stage 4 (severe); Z79.4 - long term acute care registered nurse (current) use of insulin (4) Hypertension Status: Chronic Assessment and plan: See plan of care listed below. Current Visit: Yes Qualifiers: Hypertension type: essential hypertension Qualified Code(s): I10 - Essential (primary) hypertension (5) Dyslipidemia Status: Chronic Assessment and plan: See plan of care listed below. Current Visit: No (6) Anemia Status: Chronic Assessment and plan: See plan of care listed below. Current Visit: Yes (7) Paroxysmal atrial fibrillation Status: Chronic Assessment and plan: See plan of care listed below. Current Visit: Yes (8) Status post aortic valve replacement with bioprosthetic valve Status: Chronic Assessment and plan: See plan of care listed below. Current Visit: Yes (9) Acute cholecystitis Status: Acute Assessment and plan: See plan of care listed below. Current Visit: Yes (10) Diastolic dysfunction Status: Acute Assessment and plan: See plan of care listed below. 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 Current Visit: Yes Cardiology - PN: Subj Interval history: Metal Washing Machine Operator: Dr. Franklin PCP: Dr. Min Summary - Mr. Acosta is a 71-year-old male with a past medical history of diabetes, hypertension, diastolic heart failure, paroxysmal atrial fibrillation (He had been on Coumadin in the past but it was stopped at the [facility] because of noncompliance and difficulty keeping the pro time therapeutic), chronic renal insufficiency, aortic stenosis (now status post tissue aortic valve replacement), history of pulmonary embolism, untreated obstructive sleep apnea and GERD. Patient was admitted to [facility] with recurrent diastolic heart failure. Echo Doppler done September 21, 2016 showed ejection fraction of 60% with grade 3 diastolic dysfunction, moderate dilated left atrium, mitral annular calcification, the aortic tissue valve was sclerotic but open widely. The right ventricle is dilated severe TR PA pressure 65-70 with no effusion. Patient has been anemic throughout this admission. Suspect this is anemia of chronic disease as patient does have history of chronic renal failure. Currently being managed by Dr. Pipo Spaulding. Cardiology was consulted for further assistance in the management of his diastolic heart failure. November UPDATE: Patient was seen and examined in the CCU. Patient was extubated from the ventilator yesterday. Currently requiring oxygen via nasal cannula in no apparent distress. He is status post cholecystectomy per Dr. Gray. Today postop day #6. Patient underwent bronchoscopy which revealed amiodarone lung, COPD and scattered areas of mild erosive friable bronchitis. Bronchoscopy specimens are growing a gram-negative heidi which has not been identified yet. Pulmonary is following. His chest x-ray shows 5 lobe alveolar and interstitial changes related to his amiodarone lung. Creatinine trended up this morning to 4.1 with a BUN of 110. Sodium is 133. Potassium 40. H&H stable at 9.[address] Pipo Spaulding is following. Blood pressure is well controlled today. Abdominal incisions are healing well without signs of infection. Vital signs are stable. Patient is currently normal sinus rhythm with heart rates in the 70s without any overt arrhythmias or ectopy noted. Assessment/plan: 1. ACUTE EXACERBATION OF CHRONIC OBSTRUCTIVE AIRWAYS DISEASE - Improving. Management per pulmonary. Continue breathing treatments and steroid therapy. Amiodarone has been discontinued last week. 2. PULMONARY HYPERTENSION - Etiology undetermined. RVSP estimated at 79mmHg plus the right atrial pressure. Continue current plan of care. 3. HYPERTENSION - Patient's blood pressure is well controlled. Will continue current plan of care at this time. Will further adjust as needed. Avoiding CANDY inhibitor and ARB due to fear of worsening renal function. Avoiding increasing beta jim dose due to patient's significant lung disease. Will make further adjustments as needed throughout his hospital stay. 4. ANEMIA - Likely anemia of chronic disease as patient has chronic renal disease. Stool was negative for occult blood this admission. No overt bleeding noted. H&H is stable this morning. Continue to monitor closely with Daily CBC. 5. PAROXYSMAL ATRIAL FIBRILLATION - Currently in normal sinus rhythm. Amiodarone has been discontinued as this may be contributing to his lung disease. Suspect that he will develop Afib with RVR as we discontinue the Amiodarone but it will take some time for this to wear off. We will adjust and address this as it arises. 6. CHRONIC RENAL FAILURE - Creatinine continues to improve, 4.1 this morning. Management per Dr. Pipo Spaulding. 7. S/P AVR - Stable. Tissue aortic valve. Continue current plan of care. 8. HISTORY OF CVA - Patient is extremely high risk for stroke however he also has very significant anemia and is not a candidate for anticoagulation at this time. Currently in normal sinus rhythm. 9. ACUTE CHOLECYSTITIS - Patient is now status post cholecystectomy. Postop day #6. Abdominal incisions are healing well no signs of infection. Surgery is following. 10. DIASTOLIC CHF - Compensated. 11. AMIODARONE LUNG - Amiodarone has been discontinued last week. Management per pulmonary. Continue with steroid therapy. Further plan and addendum to follow per Dr. Witt. Exam (Progress Note) - Constitutional Vitals: Period Temp Pulse Resp BP Sys/Maloney Pulse Ox Last 24 Hr 96.0 F-98.8 F 66-91 14-23 125-158/37-52 88-99 Exam: General: Appears well with no acute distress. Appears comfortable. HEENT: PERRL, normocephalic, atraumatic. Mucous membranes moist. No jaundice noted. Conjunctiva moist and clear, sclerae anicteric Neck: No JVD/HJR, no thyromegaly or lymphadenopathy noted. No carotid bruit appreciated Cardiac: Regular rate and rhythm. Systolic murmur. Lungs: Lung sounds fairly clear today. Requiring oxygen at 2 L via nasal cannula. Abdomen: Soft, normal bowel sounds. Abdominal incisions healing well without signs of infection. Extremities: No clubbing, cyanosis noted. No edema noted. Upper extremity pulses 2+. Lower extremity pulses 2+. Capillary refill less than 3 seconds. Neuro: Awake, alert and oriented 3. Moves all extremities well without hemiparesis or paralysis. No essential tremor is appreciated. Result/EKG - Labs CBC & BMP: 11/17/16 04:30 11/17/16 04:30 Lab Results: I have reviewed the past 24 hour labs Labs: Laboratory Results - last 24 hr 11/16/16 11/16/16 11/16/16 11:37 14:20 16:13 WBC RBC Hgb Hct MCV MCH MCHC RDW Plt Count MPV Neut % (Auto) Lymph % (Auto) [place] % (Auto) Eos % (Auto) Baso % (Auto) Neut # (Auto) Lymph # (Auto) [place] # (Auto) Eos # (Auto) Baso # (Auto) Total Counted Immature Gran % Nucleated RBC % Immature Gran # Segmented Neutrophils Band Neutrophils Lymphocytes Monocytes Metamyelocytes Nucleated RBCs # Platelet Estimate Hypochromasia Microcytosis Ovalocytes ABG pH 7.477 H ABG pCO2 39.0 ABG pO2 75.1 L ABG HCO3 28.9 H ABG Total CO2 26.0 ABG O2 Saturation 95.7 ABG Base Excess 5.0 H FiO2 Sodium Potassium Chloride Carbon Dioxide Anion Gap BUN Creatinine GFR Calculation BUN/Creatinine Ratio Glucose POC Glucose 371 H 280 H Calculated Osmolality Calcium Magnesium 11/16/16 11/17/16 11/17/16 19:43 03:50 04:30 WBC 22.8 H RBC 3.66 L Hgb 9.9 L Hct 28.9 L MCV 79.0 L MCH 27 MCHC 34.3 RDW 16.6 Plt Count 260 MPV 9.9 Neut % (Auto) 85.6 H Lymph % (Auto) 3.0 L [place] % (Auto) 7.4 Eos % (Auto) 0.7 Baso % (Auto) 0.0 Neut # (Auto) 19.5 H Lymph # (Auto) 0.7 L [place] # (Auto) 1.7 H Eos # (Auto) 0.2 Baso # (Auto) 0.0 Total Counted 100 Immature Gran % 3.3 Nucleated RBC % 0.0 Immature Gran # 0.75 Segmented Neutrophils 88 H Band Neutrophils 2 Lymphocytes 3 L Monocytes 6 Metamyelocytes 1 Nucleated RBCs # 0.00 Platelet Estimate Normal Hypochromasia Slight Microcytosis 1+ Ovalocytes Slight ABG pH 7.508 H ABG pCO2 34.0 L ABG pO2 76.9 L ABG HCO3 28.1 H ABG Total CO2 24.5 ABG O2 Saturation 95.9 ABG Base Excess 4.1 H FiO2 28.00 Sodium Potassium Chloride Carbon Dioxide Anion Gap BUN Creatinine GFR Calculation BUN/Creatinine Ratio Glucose POC Glucose 146 H Calculated Osmolality Calcium Magnesium 11/17/16 11/17/16 04:30 07:49 WBC RBC Hgb Hct MCV MCH MCHC RDW Plt Count MPV Neut % (Auto) Lymph % (Auto) [place] % (Auto) Eos % (Auto) Baso % (Auto) Neut # (Auto) Lymph # (Auto) [place] # (Auto) Eos # (Auto) Baso # (Auto) Total Counted Immature Gran % Nucleated RBC % Immature Gran # Segmented Neutrophils Band Neutrophils Lymphocytes Monocytes Metamyelocytes Nucleated RBCs # Platelet Estimate Hypochromasia Microcytosis Ovalocytes ABG pH ABG pCO2 ABG pO2 ABG HCO3 ABG Total CO2 ABG O2 Saturation ABG Base Excess FiO2 Sodium 133 L Potassium 4.0 Chloride 92 L Carbon Dioxide 28 Anion Gap 17.0 H BUN 110 H D Creatinine 4.10 H GFR Calculation 20 BUN/Creatinine Ratio 26.00 H Glucose 157 H POC Glucose 151 H Calculated Osmolality 303.4 Calcium 7.8 L Magnesium 2.3
--- NOTE | 2016-11-17 12:17 | Hospitalist Progress Note ---
Assessment and Plan - Time spent with patient Time spent with patient: Greater than 30 minutes (1) MEGAN (acute kidney injury) Status: Resolved Assessment and plan: I reviewed pt's lab result today. I discussed with pt and our RN in regarding his clinic status today. Cr 4.1 today, Stable. Nephrology f/u. Remain in ICU today. Current Visit: No (2) Acute cholecystitis Status: Acute Assessment and plan: POD #6, continue current treatment plan. Improving. Can tolerate current diet. Current Visit: Yes (3) Pulmonary hypertension Status: Acute Assessment and plan: Pulm f/u. Current Visit: Yes (4) Amiodarone pulmonary toxicity Status: Acute Assessment and plan: Pulm f/u Current Visit: Yes (5) Chronic obstructive pulmonary disease Status: Acute Assessment and plan: Continue oxygen and NEB. Pulm f/u. Current Visit: Yes Qualifiers: COPD type: unspecified COPD Qualified Code(s): J44.9 - Chronic obstructive pulmonary disease, unspecified (6) Paroxysmal atrial fibrillation Status: Chronic Current Visit: Yes (7) Diabetes mellitus Status: Chronic Assessment and plan: Continue insulin coverage. Current Visit: Yes Qualifiers: Diabetes mellitus type: type 2 Diabetes mellitus complication status: with kidney complications Diabetes mellitus complication detail: with chronic kidney disease Diabetes mellitus intermediate teacher insulin use: with intermediate teacher use Chronic kidney disease stage: stage 4 (severe) Qualified Code(s): E11.22 - Type 2 diabetes mellitus with diabetic chronic kidney disease; N18.4 - Chronic kidney disease, stage 4 (severe); Z79.4 - terminal block assembler (current) use of insulin Hospitalist: Subjective Interval history: 11/17/16: Extubated since yesterday and no overnight acute event. Can talk and eat. On oxygen by [place]. No fever, vomiting, diarrhea, chest pain or abd pain reported per operations staff specialist security. 11/16/[address] Burgos: Postoperative day #5 s/p laparoscopic cholecystectomy. Unable to wean from the vent after surgery but now likely extubation today. Seems to be doing well from that standpoint. He has remained hemodynamically stable. Of note, WBC count increased to 19K. No associated fever or hypotension. Abdominal incisions are healing well without evidence of infection. Not currently on abx. Patient is on IV steroids but has been on these for several days. CXR done today with questionable infiltrate vs pulmonary edema. No obvious indication for abx right now. All labs do seem somewhat c/w possible hemoconcentration. Therefore will increase IVF's and will monitor WBC count. Culture with any fever or decompensation prior to initiation of abx. Exam - Constitutional Vitals: Period Temp Pulse Resp BP Sys/Maloney Pulse Ox Last 24 Hr 97.6 F-98.8 F 68-91 14-23 125-158/37-52 88-99 Exam: GENERAL: Lying in bed supine. On oxygen, AAOx3. HEENT: Pupils equally round and reactive to light, conjunctivae clear. Normal lips, teeth and gums. NECK: Supple without mass. HEART: RRR, no murmur. CHEST: Normal shape, fair air movement, no retractions. CV: RRR, no murmurs, 2+ peripheral pulses LUNGS: Decreased breath sound at b/l lower lobes. ABDOMEN: Soft, nontender, and no hepatosplenomegaly. SKIN: No rash or edema. Pale. LYMPH: No anterior or posterior cervical, or supraclavicular lymphadenopathy. NEURO: AAox3. Results - Labs CBC & BMP: 11/17/16 04:30 11/17/16 04:30
[2016-11-17 15:16] LABS: ABG Base Excess 3.1 MMOL/L (-2.5-2.5); ABG HCO3 27.2 MMOL/L (20-26); ABG Oxygen Saturation 96.2 % (95-100); ABG PCO2 31.1 MM HG (35-48); ABG PH 7.524 (7.35-7.45); ABG PO2 73.2 MM HG (80-95); ABG TCO2 23.4 MMOL/L (23-27)
--- NOTE | 2016-11-17 16:09 | CT Report ---
History is altered mental status Comparison 01/03/2016 There is diffuse atrophy with mild patchy white matter low densities again seen. Cystic CSF collection in the inferior left posterior fossa again seen possibly related to more focal left cerebellar infarct No new areas of hemorrhage or mass effects seen No acute cortical stroke identified Impression: Chronic changes similar on the prior study The CT exam was performed using one or more of the following dose reduction techniques: Automated exposure control, adjustment of the mA and/or kV according to patient size, or use of iterative reconstruction technique. PROCEDURE INTERPRETED AT [facility] DEPARTMENT OF RADIOLOGY Final Report Signed by: Dr. Marlena Chavez
[2016-11-17] MEDS: DESITIN 4OZ/NYSTATIN 15 GRAM MIXTURE PASTE TOP SCH ×2 (17:21→20:24)
--- NOTE | 2016-11-17 21:15 | Nephrology Progress Note ---
Nephrology - PN: Subj Interval history: He has been extubated. He denies shortness of breath at present. No abdominal pain Exam (PN)-Nephrology - Vital Signs Vital signs: Period Temp Pulse Resp BP Sys/Maloney Pulse Ox Last 24 Hr 98.2 F-99.6 F 69-94 14-24 113-157/35-59 88-98 Exam: Gen.: Alert and oriented x3. ENT: Pupils equal round reactive to light. EOMs intact. Mucous membranes moist. Neck: Supple. No JVD or bruit. Cardiovascular: Regular rate and rhythm. No murmur rub or gallop Lungs: Clear Abdomen: Soft. Extremities: No edema - Lab 11/17/16 04:30 11/17/16 04:30 Most recent lab results ABG pH 7.524 (7.35-7.45) H 11/17/16 15:08 ABG pCO2 31.1 MM HG (35-48) L 11/17/16 15:08 ABG pO2 73.2 MM HG (80-95) L 11/17/16 15:08 ABG HCO3 27.2 MMOL/L (20-26) H 11/17/16 15:08 ABG O2 Saturation 96.2 % (95-100) 11/17/16 15:08 Calcium 7.8 MG/DL (8.5-10.1) L 11/17/16 04:30 Phosphorus 5.1 MG/DL (2.5-4.9) H 11/15/16 05:30 Magnesium 2.3 MG/DL (1.8-2.4) 11/17/16 04:30 Assessment and Plan (1) Chronic kidney disease, stage IV (severe) Status: Chronic Assessment and plan: 71-year-old man admitted with: * CRF stage IV. Baseline creatinine upper threes * ARF on CRF. Renal function has improved to near his prior baseline. Urine output adequate. Decrease IV rate as p.o. intake improves * Cholecystitis. Status post laparoscopic cholecystectomy * Diastolic CHF. Compensated * Chronic lung disease. Extubated * Pulmonary hypertension * Prosthetic aortic valve * Diabetes mellitus * Hypertension * Anemia. Posttransfusion Current Visit: Yes (2) Diastolic CHF Status: Acute Current Visit: Yes Qualifiers: Congestive heart failure chronicity: acute on chronic Qualified Code(s): I50.33 - Acute on chronic diastolic (congestive) heart failure (3) Pulmonary edema Status: Acute Current Visit: Yes (4) Chronic obstructive pulmonary disease Status: Acute Current Visit: Yes Qualifiers: COPD type: unspecified COPD Qualified Code(s): J44.9 - Chronic obstructive pulmonary disease, unspecified (5) Diabetes mellitus Status: Chronic Current Visit: Yes Qualifiers: Diabetes mellitus type: type 2 Diabetes mellitus complication status: with kidney complications Diabetes mellitus complication detail: with chronic kidney disease Diabetes mellitus sub master insulin use: with senior living use Chronic kidney disease stage: stage 4 (severe) Qualified Code(s): E11.22 - Type 2 diabetes mellitus with diabetic chronic kidney disease; N18.4 - Chronic kidney disease, stage 4 (severe); Z79.4 - skilled nursing (current) use of insulin (6) Hypertension Status: Chronic Current Visit: Yes Qualifiers: Hypertension type: essential hypertension Qualified Code(s): I10 - Essential (primary) hypertension
[2016-11-18] MEDS: ALBUTEROL 2.5 MG/3 ML NEB RESP TX SCH ×4 (00:47→19:19)
[2016-11-18] MEDS: methylPREDNISolone SOD SUC 40 MG/1 ML VIAL IV SCH ×3 (01:11→16:20)
[2016-11-18] MEDS: ZIPRASIDONE 20 MG/1 ML VIAL IM PRN ×2 (03:10→10:00)
[2016-11-18] MEDS ORDERED: HEPARIN/NACL 0.9% 2 UNITS/ML 500 ML IV ONE (04:21)
[2016-11-18] MEDS ORDERED: HALOPERIDOL 5 MG/ML AMP IV ONE (05:00)
[2016-11-18 05:20] LABS: Basophils % 0.1 % (0.0-0.8); Eosinophils % 0.1 % (0.00-10.9); Hematocrit 27.4 VOL% (42.0-52.0); Hemoglobin 9.3 GM/DL (14.0-18.0); Immature Granulocytes % 3.1 %; Immature Granulocytes Absolute 0.68 #; Lymphocytes # 0.3 10*3/uL (1.4-4.0); Lymphocytes % 1.4 % (21.2-54.2); Mean Corpuscular HGB Conc 33.9 GM/DL (32-36); Mean Corpuscular Hemoglobin 27 PG (27-34); Mean Corpuscular Volume 79.7 FL (87-102); Mean Platelet Volume 11.7 FL (9.6-12.0); Monocytes # 1.2 10*3/uL (0.11-0.8); Monocytes % 5.5 % (1.7-12.7); Neutrophils # 19.8 10*3/uL (1.4-7.4); Neutrophils % 89.8 % (38.7-73.9); Platelet Count 256 T/CUMM (130-400); Red Blood Count 3.44 MC/CUMM (3.8-5.5); Red Cell Distribution Width 16.9 % (9.3-17.3)
[2016-11-18 05:31] LABS: ABG Base Excess -1.4 MMOL/L (-2.5-2.5); ABG HCO3 23.2 MMOL/L (20-26); ABG Oxygen Saturation 97.3 % (95-100); ABG PCO2 29.6 MM HG (35-48); ABG PH 7.469 (7.35-7.45); ABG PO2 85.1 MM HG (80-95); ABG TCO2 19.6 MMOL/L (23-27)
[2016-11-18 05:56] LABS: Calcium 7.8 MG/DL (8.5-10.1); Magnesium 2.7 MG/DL (1.8-2.4); Osmolality,Calculated 311.4 MOS/KG (273-304); Potassium 4.2 MMOL/L (3.5-5.1)
[2016-11-18] MEDS ORDERED: MORPHINE 2 MG/1 ML SYRINGE IV ONE (06:00)
[2016-11-18 06:27] LABS: Anisocytosis 1+; Hypochromasia 1+; Lymphocytes 3 % (20-55); Microcytosis 1+; Ovalocytes Few; Segmented Neutrophils 94 % (50-85); Total Cells Counted 100
[2016-11-18 06:28] LABS: Platelet Estimate Normal
--- NOTE | 2016-11-18 07:18 | Event Note ---
General Surgery Progress Note Chief complaint This patient is a 71-year-old man with multiple medical problems who developed acute cholecystitis treated with laparoscopic cholecystectomy on 11/11/2016 Interval history Patient is not sleeping well. He is not really eating much but he has developed pretty severe psychosis from lack of sleep. Possibly from steroids As well. White blood cell count is stable at 22,000. Hemoglobin is relatively stable. Renal function is slightly worsening. There is a large amount of bruising in the lower abdomen where the patient was receiving subcu heparin injections. Physical exam Abdominal incisions are clean with no evidence of infection. There are normal bowel sounds. Shows worsening Labs Reviewed, BUN is rising. Creatinine is rising slightly. Imaging Chest x-ray shows worsening interstitial findings. CT head yesterday was unchanged from prior Assessment and plan Continue current care I am available for dialysis catheter if needed
[2016-11-18] MEDS: SODIUM CHLORIDE 0.9% 1,000 ML IV SCH ×2 (09:01→16:48)
--- NOTE | 2016-11-18 09:12 | XRay Report ---
XR chest 1V portable Indication: CHF Comparison: Chest x-ray dated December 17, 2016 Technique: Single frontal view of the chest. Findings: Continued cardiomegaly status post sternotomy. Mildly progressed diffuse bilateral probable pulmonary edema. Visualized osseous and surrounding soft tissue structures appear grossly unchanged. IMPRESSION: As above. PROCEDURE INTERPRETED AT [facility] DEPARTMENT OF RADIOLOGY Final Report Signed by: Dr Oliver Lomax
[2016-11-18] MEDS ORDERED: FUROSEMIDE 40 MG/4 ML VIAL IV ONE (09:30)
[2016-11-18] MEDS: NIFEdipine 10 MG CAPSULE PO SCH ×3 (09:31→20:52)
[2016-11-18] MEDS: INSULIN LISPRO 100 UNIT/ML SUBCUT SCH ×4 (09:47→20:54)
[2016-11-18] MEDS: INSULIN GLARGINE 100 UNIT/ML SUBCUT SCH (09:47)
[2016-11-18] MEDS: HYDROXYCHLOROQUINE 200 MG TABLET PO SCH (09:50)
[2016-11-18] MEDS: COLCHICINE 0.6 MG TABLET PO SCH (09:50)
[2016-11-18] MEDS: CHOLECALCIFEROL 1,000 UNIT TABLET PO SCH (09:51)
[2016-11-18] MEDS: FOLIC ACID 0.4 MG TABLET PO SCH (09:51)
[2016-11-18] MEDS: ASPIRIN EC 81 MG TABLET PO SCH (09:52)
[2016-11-18] MEDS: ALLOPURINOL 300 MG TABLET PO SCH (09:52)
[2016-11-18] MEDS: ATORVASTATIN 40 MG TABLET PO SCH (09:52)
[2016-11-18] MEDS: METOPROLOL TARTRATE 25 MG TABLET PO SCH ×2 (09:52→20:52)
[2016-11-18] MEDS: MINOXIDIL 2.5 MG TABLET PO SCH ×2 (09:53→20:53)
[2016-11-18] MEDS: DOCUSATE SODIUM 100 MG CAPSULE PO SCH ×2 (09:53→20:54)
[2016-11-18] MEDS: MUPIROCIN 2% OINT 22 GM TUBE TOP SCH ×2 (09:54→20:56)
[2016-11-18] MEDS: DESITIN 4OZ/NYSTATIN 15 GRAM MIXTURE PASTE TOP SCH ×2 (09:54→20:56)
[2016-11-18] MEDS: FAMOTIDINE INJ 40 MG in SODIUM CHLORIDE 0.9% 100 ML IV SCH (09:54)
[2016-11-18] MEDS: HEPARIN 5,000 UNIT/1 ML VIAL SUBCUT SCH ×2 (09:56→21:00)
--- NOTE | 2016-11-18 11:12 | Cardiology Progress Note ---
Assessment and Plan (1) Acute exacerbation of chronic obstructive airways disease Status: Acute Assessment and plan: See plan of care listed below. Current Visit: Yes (2) Chronic kidney disease, stage IV (severe) Status: Chronic Assessment and plan: See plan of care listed below. Current Visit: Yes (3) Diabetes mellitus Status: Chronic Assessment and plan: See plan of care listed below. 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 Current Visit: Yes Qualifiers: Hypertension type: essential hypertension Qualified Code(s): I10 - Essential (primary) hypertension (5) Dyslipidemia Status: Chronic Assessment and plan: See plan of care listed below. Current Visit: No (6) Anemia Status: Chronic Assessment and plan: See plan of care listed below. Current Visit: Yes (7) Paroxysmal atrial fibrillation Status: Chronic Assessment and plan: See plan of care listed below. Current Visit: Yes (8) Status post aortic valve replacement with bioprosthetic valve Status: Chronic Assessment and plan: See plan of care listed below. Current Visit: Yes (9) Acute cholecystitis Status: Acute Assessment and plan: See plan of care listed below. Current Visit: Yes (10) Diastolic dysfunction Status: Acute Assessment and plan: See plan of care listed below. 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 Current Visit: Yes (12) Leukocytosis Status: Acute Assessment and plan: See plan of care listed below. Current Visit: Yes Cardiology - PN: Subj Interval history: Investor: Dr. Franklin PCP: Dr. Min Summary - Mr. Acosta is a 71-year-old male with a past medical history of diabetes, hypertension, diastolic heart failure, paroxysmal atrial fibrillation (He had been on Coumadin in the past but it was stopped at the [facility] because of noncompliance and difficulty keeping the pro time therapeutic), chronic renal insufficiency, aortic stenosis (now status post tissue aortic valve replacement), history of pulmonary embolism, untreated obstructive sleep apnea and GERD. Patient was admitted to [facility] with recurrent diastolic heart failure. Echo Doppler done September 21, 2016 showed ejection fraction of 60% with grade 3 diastolic dysfunction, moderate dilated left atrium, mitral annular calcification, the aortic tissue valve was sclerotic but open widely. The right ventricle is dilated severe TR PA pressure 65-70 with no effusion. Patient has been anemic throughout this admission. Suspect this is anemia of chronic disease as patient does have history of chronic renal failure. Currently being managed by Dr. Pipo Spaulding. Cardiology was consulted for further assistance in the management of his diastolic heart failure. November UPDATE: Patient was seen and examined in the CCU. Currently, resting in bed in no acute distress. Currently requiring oxygen via Ventimask. Patient seems to be somewhat confused. 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 He is status post cholecystectomy per Dr. Gray. Today postop day #7. Patient underwent bronchoscopy earlier this week which revealed amiodarone lung, COPD and scattered areas of mild erosive friable bronchitis. Bronchoscopy specimens are growing a gram-negative rods. Pulmonary is following. Creatinine trended up this morning to 4.6 with a BUN of 124. Sodium is 133. Potassium 4.2. H&H stable at 9.[address] Pipo Spaulding is following. Patient may require dialysis at some point. Blood pressure is well controlled today. Abdominal incisions are healing well without signs of infection. Vital signs are stable. Patient is currently normal sinus rhythm with heart rates in the 90s without any overt arrhythmias or ectopy noted. At this point, patient is stable from a cardiac standpoint and we have nothing new to add. Will continue current plan of care. Assessment/plan: 1. ACUTE EXACERBATION OF CHRONIC OBSTRUCTIVE AIRWAYS DISEASE - Improving. Management per pulmonary. Continue breathing treatments and steroid therapy. 2. PULMONARY HYPERTENSION - Etiology undetermined. RVSP estimated at 79mmHg plus the right atrial pressure. Continue current plan of care. 3. HYPERTENSION - Patient's blood pressure is well controlled. Will continue current plan of care at this time. Will further adjust as needed. Avoiding CANDY inhibitor and ARB due to fear of worsening renal function. Avoiding increasing beta jim dose due to patient's significant lung disease. Will make further adjustments as needed throughout his hospital stay. 4. ANEMIA - Likely anemia of chronic disease as patient has chronic renal disease. Stool was negative for occult blood this admission. No overt bleeding noted. Continue to monitor closely with Daily CBC. 5. PAROXYSMAL ATRIAL FIBRILLATION - Currently in normal sinus rhythm. Amiodarone has been discontinued as this may be contributing to his lung disease. Suspect that he will develop Afib with RVR as we discontinue the Amiodarone but it will take some time for this to wear off. We will adjust and address this as it arises. 6. CHRONIC RENAL FAILURE - Creatinine is rising, 4.6 this morning. Management per Dr. Pipo Spaulding. Patient may require dialysis at some point. 7. S/P AVR - Stable. Tissue aortic valve. Continue current plan of care. 8. HISTORY OF CVA - Patient is extremely high risk for stroke however he also has very significant anemia and is not a candidate for anticoagulation at this time. Currently in normal sinus rhythm. 9. ACUTE CHOLECYSTITIS - Patient is now status post cholecystectomy. Postop day #7. Abdominal incisions are healing well no signs of infection. Surgery is following. 10. DIASTOLIC CHF - Compensated. No recurrence of overt diastolic heart failure noted. 11. AMIODARONE LUNG - Improving. Amiodarone has been discontinued last week. Management per pulmonary. Continue with steroid therapy. 12. LEUKOCYTOSIS - Thought to be steroid-induced. Further plan and addendum to follow per Dr. Witt. Exam (Progress Note) - Constitutional Vitals: Period Temp Pulse Resp BP Sys/Maloney Pulse Ox Last 24 Hr 97.9 F-99.0 F 69-94 15-26 113-157/35-75 92-98 Exam: General: Appears well with no acute distress. Appears comfortable. HEENT: PERRL, normocephalic, atraumatic. Mucous membranes moist. No jaundice noted. Conjunctiva moist and clear, sclerae anicteric Neck: No JVD/HJR, no thyromegaly or lymphadenopathy noted. No carotid bruit appreciated Cardiac: Regular rate and rhythm. Systolic murmur. Lungs: Coarse breath sounds. Requiring oxygen Via Ventimask. Abdomen: Soft, normal bowel sounds. Abdominal incisions healing well without signs of infection. Extremities: No clubbing, cyanosis noted. No edema noted. Upper extremity pulses 2+. Lower extremity pulses 2+. Capillary refill less than 3 seconds. Neuro: Confused. Result/EKG - Labs CBC & BMP: 11/18/16 04:40 11/18/16 04:40 Lab Results: I have reviewed the past 24 hour labs Labs: Laboratory Results - last 24 hr 11/17/16 11/17/16 11/17/16 11:05 15:08 16:33 WBC RBC Hgb Hct MCV MCH MCHC RDW Plt Count MPV Neut % (Auto) Lymph % (Auto) [place] % (Auto) Eos % (Auto) Baso % (Auto) Neut # (Auto) Lymph # (Auto) [place] # (Auto) Eos # (Auto) Baso # (Auto) Total Counted Immature Gran % Nucleated RBC % Immature Gran # Segmented Neutrophils Lymphocytes Monocytes Nucleated RBCs # Platelet Estimate Hypochromasia Anisocytosis Microcytosis Ovalocytes ABG pH 7.524 H ABG pCO2 31.1 L ABG pO2 73.2 L ABG HCO3 27.2 H ABG Total CO2 23.4 ABG O2 Saturation 96.2 ABG Base Excess 3.1 H Sodium Potassium Chloride Carbon Dioxide Anion Gap BUN Creatinine GFR Calculation BUN/Creatinine Ratio Glucose POC Glucose 210 H 260 H Calculated Osmolality Calcium Magnesium 11/17/16 11/18/16 11/18/16 19:25 04:40 04:40 WBC 22.0 H RBC 3.44 L Hgb 9.3 L Hct 27.4 L MCV 79.7 L MCH 27 MCHC 33.9 RDW 16.9 Plt Count 256 MPV 11.7 Neut % (Auto) 89.8 H Lymph % (Auto) 1.4 L [place] % (Auto) 5.5 Eos % (Auto) 0.1 Baso % (Auto) 0.1 Neut # (Auto) 19.8 H Lymph # (Auto) 0.3 L [place] # (Auto) 1.2 H Eos # (Auto) 0.0 Baso # (Auto) 0.0 Total Counted 100 Immature Gran % 3.1 Nucleated RBC % 0.0 Immature Gran # 0.68 Segmented Neutrophils 94 H Lymphocytes 3 L Monocytes 3 Nucleated RBCs # 0.00 Platelet Estimate Normal Hypochromasia 1+ Anisocytosis 1+ Microcytosis 1+ Ovalocytes Few ABG pH ABG pCO2 ABG pO2 ABG HCO3 ABG Total CO2 ABG O2 Saturation ABG Base Excess Sodium 133 L Potassium 4.2 Chloride 93 L Carbon Dioxide 24 Anion Gap 20.2 H BUN 124 H Creatinine 4.60 H GFR Calculation 17 BUN/Creatinine Ratio 26.00 H Glucose 208 H POC Glucose 230 H Calculated Osmolality 311.4 H Calcium 7.8 L Magnesium 2.7 H 11/18/16 05:30 WBC RBC Hgb Hct MCV MCH MCHC RDW Plt Count MPV Neut % (Auto) Lymph % (Auto) [place] % (Auto) Eos % (Auto) Baso % (Auto) Neut # (Auto) Lymph # (Auto) [place] # (Auto) Eos # (Auto) Baso # (Auto) Total Counted Immature Gran % Nucleated RBC % Immature Gran # Segmented Neutrophils Lymphocytes Monocytes Nucleated RBCs # Platelet Estimate Hypochromasia Anisocytosis Microcytosis Ovalocytes ABG pH 7.469 H ABG pCO2 29.6 L ABG pO2 85.1 ABG HCO3 23.2 ABG Total CO2 19.6 L ABG O2 Saturation 97.3 ABG Base Excess -1.4 Sodium Potassium Chloride Carbon Dioxide Anion Gap BUN Creatinine GFR Calculation BUN/Creatinine Ratio Glucose POC Glucose Calculated Osmolality Calcium Magnesium
--- NOTE | 2016-11-18 11:59 | Infectious Disease Consult ---
Assessment and Plan (1) Pneumonia Status: Acute Assessment and plan: Vent associated pneumonia with Klebsiella cultured. He is on appropriate antibiotic coverage. We can keep the ceftazidime going but if the blood cultures that I am ordering are negative and we have no other focus of infection we can de-escalate from ceftazidime probably to cefazolin. Current Visit: Yes (2) Acute cholecystitis Status: Acute Assessment and plan: Status post cholecystectomy, surgical wounds look good no evidence of infection. Current Visit: Yes (3) Altered mental status Status: Acute Current Visit: Yes (4) Amiodarone pulmonary toxicity Status: Acute Current Visit: Yes (5) Diastolic CHF Status: Acute Current Visit: Yes Qualifiers: Congestive heart failure chronicity: acute on chronic Qualified Code(s): I50.33 - Acute on chronic diastolic (congestive) heart failure (6) Leukocytosis Status: Acute Assessment and plan: Cause unclear, no associated fever. Not sure if it is from the steroids because he was on steroids for a week before the onset of severe leukocytosis. He has been in ICU and certainly being in the hospital for such a prolonged period puts him at risk for hospital-acquired infections including bloodstream infections. Recommendations: Will order blood cultures 2 sets. He can continue the ceftazidime for now. If the blood cultures, positive then we can broaden antibiotics as necessary. Thank you very much for the consult. Will follow again on Monday. Call over the weekend if there are any questions. Discussed with Dr. Tripathi. 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 rat exterminator use Chronic kidney disease stage: stage 4 (severe) Qualified Code(s): E11.22 - Type 2 diabetes mellitus with diabetic chronic kidney disease; N18.4 - Chronic kidney disease, stage 4 (severe); Z79.4 - detention (current) use of insulin (10) Hypertension Status: Chronic Current Visit: Yes Qualifiers: Hypertension type: essential hypertension Qualified Code(s): I10 - Essential (primary) hypertension (11) Paroxysmal atrial fibrillation Status: Chronic Current Visit: Yes (12) Status post aortic valve replacement with bioprosthetic valve Status: Chronic Current Visit: Yes History of Present Illness Chief complaint: Leukocytosis, pneumonia History of present illness: History obtained from review of the extensive records as the patient is confused. Mr. Acosta is a 71 year old male with numerous comorbids who was admitted to the hospital 3 weeks ago with shortness of breath felt to be due to congestive heart failure. He has numerous comorbidities including chronic kidney disease and has been having management of his pulmonary edema with IV Lasix. The patient ended up having acute cholecystitis a week ago and underwent laparoscopic cholecystectomy on November 11. He remained on mechanical ventilation postoperatively and got extubated 2 days ago. Since extubation has been significantly confused. The patient's leukocytosis got severely worse from the november. He has been afebrile. He has been on steroids since at least 09 November. He underwent bronchoscopy on the and thick tenacious secretions were removed. Culture came up positive for Klebsiella. The leukocytosis has persisted even though he is on appropriate coverage for the Klebsiella. I am asked to assist with management. Home Medications Medication Instructions Recorded Confirmed Type Omeprazole [Prilosec] 20 mg PO BID W/MEALS 01/05/16 11/02/16 History Allopurinol [Zyloprim] 150 mg PO DAILY #30 mg 02/06/16 11/02/16 Rx Sodium Bicarb Tab 325 mg PO BID 09/21/16 11/02/16 History Docusate Sodium Cap [Colace Cap] 100 mg PO BID #60 capsule 10/03/16 11/02/16 Rx Furosemide Tab [Lasix Tab] 80 mg PO DAILY #30 tablet 10/03/16 11/02/16 Rx HYDROcodone/ACETAMIN 10-325 [[place] 1 tablet PO Q4H PRN #30 tablet 10/03/1611/02 Rx 10-325] Metoprolol Tartrate Tab [Lopressor 25 mg PO BID #60 tablet 10/03/16 11/02/16 Rx Tab] Allergies Allergy/AdvReac Type Severity Reaction Status Date / Time steroid AdvReac Hypertensio Uncoded 10/29/16 01:18 n ROS unobtainable: due to mental status Medical,Surgical,& Family Hx - Medical History Cardio: History of: Cardiac Dysrhythmia (afib), Hypertension, Cardiovascular Problems (Aortic valve; DVT's) No history of: CAD, MD Neurology: No history of: Seizures Endocrine: History of: Diabetes Mellitus (IDDM), Dyslipidemia Rheumatology: History of;: Gout Respiratory: History of: COPD (Home O2 at 2L) Renal: History of: Renal Problems (metabolic acidosis with elevated serum creatinine) Gastrointestinal: History of: GERD No history of: Hemorrhoids Musculoskeletal: History of: Back/Neck Problems Other: History of: Skin Problems - Surgical History Cardiac Surgeries: Sugical HX of: Cardiac Surgery (Aortic valve replacement 2012 ) Thoracic Surgeries: Patient denies;: Organ Transplant Neurologic Surgeries: Patient denies: Neurologic Surgery HEENT Surgeries: Surgical HX of: Tonsilectomy & Adenoidectomy Abdominal Surgeries: Patient denies: Appendectomy, Cholecystectomy Orthopedic Surgeries: Surgical HX of;: Total Knee Replacement (BOTH) - Family History Family History: Reports;: Family Diabetes, Family Hypertension Denies;: Family Stroke Comment Only: Family Cancer (mother,colon. brother, prostate) - Social History Smoking Status: Former smoker Frequency of Alcohol Use: None Type of Drug Use: None Infectious Disease Exam H&P - Constitutional Vitals: Vital Signs Temp Pulse Resp BP Pulse Ox 97.9 F 93 H 23 152/71 92 L 11/18/16 03:00 11/18/16 08:09 11/18/16 08:09 11/18/16 06:00 11/18/16 08:09 Intake and Output 11/17/16 11/18/16 11/18/16 23:59 07:59 15:59 Intake Total 643 / 643 120 / 120 Output Total 365 / 365 390 / 390 145 / 145 Balance 278 / 278 -390 / -390 -25 / -25 Intake: IV 523 / 523 Ns 1,000 ml @ 75 mls/hr 523 / 523 IV .[id number] DENITA Rx#: [id number] Oral 120 / 120 120 / 120 Output: Urine 365 / 365 290 / 290 145 / 145 Stool 100 / 100 Other: Voiding Method Indwelling Catheter Indwelling Catheter Indwelling Catheter # Bowel Movements 1 Weight 132.449 kg Patient Weight 11/18/16 23:59 Weight 132.449 kg Exam: General: Patient obese, relatively comfortable at this time I saw him, he had just gotten Geodon HEENT: Mucous membranes pink and moist, anicteric acyanotic, TAMIA, would not open mouth for examination Neck: Supple, no thyroid gland enlargement, no lymphadenopathy Respiratory system: Breath sounds vesicular decreased in bases, no crepitations or wheezes heard Cardiovascular: Normal S1 and S2, soft systolic murmurs appreciated Abdomen: No erythema about or drainage from laparoscopy wounds, normal bowel sounds, soft nontender throughout, no organomegaly or mass Genitourinary: No suprapubic pain or bladder distention, clear urine from Richards catheter Extremities: Mild bilateral leg edema Skin: No rash Reports - Labs CBC & BMP: 11/18/16 04:40 11/18/16 04:40 Labs: Laboratory Results - last 24 hr 11/17/16 11/17/16 11/17/16 15:08 16:33 19:25 WBC RBC Hgb Hct MCV MCH MCHC RDW Plt Count MPV Neut % (Auto) Lymph % (Auto) [place] % (Auto) Eos % (Auto) Baso % (Auto) Neut # (Auto) Lymph # (Auto) [place] # (Auto) Eos # (Auto) Baso # (Auto) Total Counted Immature Gran % Nucleated RBC % Immature Gran # Segmented Neutrophils Lymphocytes Monocytes Nucleated RBCs # Platelet Estimate Hypochromasia Anisocytosis Microcytosis Ovalocytes ABG pH 7.524 H ABG pCO2 31.1 L ABG pO2 73.2 L ABG HCO3 27.2 H ABG Total CO2 23.4 ABG O2 Saturation 96.2 ABG Base Excess 3.1 H Sodium Potassium Chloride Carbon Dioxide Anion Gap BUN Creatinine GFR Calculation BUN/Creatinine Ratio Glucose POC Glucose 260 H 230 H Calculated Osmolality Calcium Magnesium 11/18/16 11/18/16 11/18/16 04:40 04:40 05:30 WBC 22.0 H RBC 3.44 L Hgb 9.3 L Hct 27.4 L MCV 79.7 L MCH 27 MCHC 33.9 RDW 16.9 Plt Count 256 MPV 11.7 Neut % (Auto) 89.8 H Lymph % (Auto) 1.4 L [place] % (Auto) 5.5 Eos % (Auto) 0.1 Baso % (Auto) 0.1 Neut # (Auto) 19.8 H Lymph # (Auto) 0.3 L [place] # (Auto) 1.2 H Eos # (Auto) 0.0 Baso # (Auto) 0.0 Total Counted 100 Immature Gran % 3.1 Nucleated RBC % 0.0 Immature Gran # 0.68 Segmented Neutrophils 94 H Lymphocytes 3 L Monocytes 3 Nucleated RBCs # 0.00 Platelet Estimate Normal Hypochromasia 1+ Anisocytosis 1+ Microcytosis 1+ Ovalocytes Few ABG pH 7.469 H ABG pCO2 29.6 L ABG pO2 85.1 ABG HCO3 23.2 ABG Total CO2 19.6 L ABG O2 Saturation 97.3 ABG Base Excess -1.4 Sodium 133 L Potassium 4.2 Chloride 93 L Carbon Dioxide 24 Anion Gap 20.2 H BUN 124 H Creatinine 4.60 H GFR Calculation 17 BUN/Creatinine Ratio 26.00 H Glucose 208 H POC Glucose Calculated Osmolality 311.4 H Calcium 7.8 L Magnesium 2.7 H 11/18/16 11/18/16 07:27 11:03 WBC RBC Hgb Hct MCV MCH MCHC RDW Plt Count MPV Neut % (Auto) Lymph % (Auto) [place] % (Auto) Eos % (Auto) Baso % (Auto) Neut # (Auto) Lymph # (Auto) [place] # (Auto) Eos # (Auto) Baso # (Auto) Total Counted Immature Gran % Nucleated RBC % Immature Gran # Segmented Neutrophils Lymphocytes Monocytes Nucleated RBCs # Platelet Estimate Hypochromasia Anisocytosis Microcytosis Ovalocytes ABG pH ABG pCO2 ABG pO2 ABG HCO3 ABG Total CO2 ABG O2 Saturation ABG Base Excess Sodium Potassium Chloride Carbon Dioxide Anion Gap BUN Creatinine GFR Calculation BUN/Creatinine Ratio Glucose POC Glucose 259 H 159 H Calculated Osmolality Calcium Magnesium - Reports Microbiology: Microbiology 11/15/16 08:45 Bronchoalveolar Lavage Culture - Final Bronchial Alexey Lavage Klebsiella pneumoniae Gram Stain - Final Patient never had any blood cultures done - Diagnostic Findings Procedure: Chest x-ray: image reviewed by me, report reviewed by me (Diffuse bilateral patchy opacities, likely edema per radiology)
[2016-11-18] MEDS: cefTAZidime 500 MG in SODIUM CHLORIDE 0.9% 100 ML IV SCH ×2 (12:30→23:44)
--- NOTE | 2016-11-18 13:37 | Hospitalist Progress Note ---
Assessment and Plan - Time spent with patient Time spent with patient: Greater than 30 minutes (1) Acute encephalopathy Status: Acute Assessment and plan: CT head yesterday showed no acute changes. Maybe pain meds related vs underlying infection? Consult ID and Neurology today. Current Visit: Yes (2) Pneumonia Status: Acute Assessment and plan: Consult ID today. I discussed with RN and ID today in regarding pt's clinical status today. Antibiotics per ID. Reeval in am. Current Visit: Yes (3) Acute cholecystitis Status: Acute Assessment and plan: POD #6, continue current treatment plan. Improving. Can tolerate current diet. Current Visit: Yes (4) Pulmonary hypertension Status: Acute Assessment and plan: Pulm f/u. Current Visit: Yes (5) Amiodarone pulmonary toxicity Status: Acute Assessment and plan: Pulm f/u Current Visit: Yes (6) Chronic obstructive pulmonary disease Status: Acute Assessment and plan: Continue oxygen and NEB. Pulm f/u. Current Visit: Yes Qualifiers: COPD type: unspecified COPD Qualified Code(s): J44.9 - Chronic obstructive pulmonary disease, unspecified (7) Paroxysmal atrial fibrillation Status: Chronic Current Visit: Yes (8) Diabetes mellitus Status: Chronic Assessment and plan: Continue insulin coverage. Current Visit: Yes Qualifiers: Diabetes mellitus type: type 2 Diabetes mellitus complication status: with kidney complications Diabetes mellitus complication detail: with chronic kidney disease Diabetes mellitus director long term care insulin use: with fpc use Chronic kidney disease stage: stage 4 (severe) Qualified Code(s): E11.22 - Type 2 diabetes mellitus with diabetic chronic kidney disease; N18.4 - Chronic kidney disease, stage 4 (severe); Z79.4 - [facility] (current) use of insulin Hospitalist: Subjective Interval history: 11/18/16: Appeared to be confused today per clinical staff pharmacist. Worsening leukocytosis, but on IV steroid. No resp care, oxygen and NEB treatment. On IV antibiotics. No fever, headache, chest pain or abd pain reported per clinical staff pharmacist. Will consult ID and Neurology today. 11/17/16: Extubated since yesterday and no overnight acute event. Can talk and eat. On oxygen by NC. No fever, vomiting, diarrhea, chest pain or abd pain reported per clinical staff pharmacist. 11/16/[address] Burgos: Postoperative day #5 s/p laparoscopic cholecystectomy. Unable to wean from the vent after surgery but now likely extubation today. Seems to be doing well from that standpoint. He has remained hemodynamically stable. Of note, WBC count increased to 19K. No associated fever or hypotension. Abdominal incisions are healing well without evidence of infection. Not currently on abx. Patient is on IV steroids but has been on these for several days. CXR done today with questionable infiltrate vs pulmonary edema. No obvious indication for abx right now. All labs do seem somewhat c/w possible hemoconcentration. Therefore will increase IVF's and will monitor WBC count. Culture with any fever or decompensation prior to initiation of abx. Exam - Constitutional Vitals: Period Temp Pulse Resp BP Sys/Maloney Pulse Ox Last 24 Hr 97.9 F-99.0 F 69-94 15-32 118-157/39-75 92-98 Exam: GENERAL: Lying in bed supine. On oxygen, Awake and can squeeze my hands by using his hands per my request. HEENT: Pupils equally round and reactive to light, conjunctivae clear. Normal lips, teeth and gums. NECK: Supple without mass. HEART: RRR, no murmur. CHEST: Normal shape, fair air movement, no retractions. CV: RRR, no murmurs, 2+ peripheral pulses LUNGS: Decreased breath sound at b/l lower lobes. ABDOMEN: Soft, nontender, and no hepatosplenomegaly. SKIN: No rash or edema. Pale. LYMPH: No anterior or posterior cervical, or supraclavicular lymphadenopathy. NEURO: Awake. Confused. Results - Labs CBC & BMP: 11/18/16 04:40 11/18/16 04:40
--- NOTE | 2016-11-18 16:04 | Nephrology Progress Note ---
Nephrology - PN: Subj Interval history: He is awake but has been confused. He denies shortness of breath. Exam (PN)-Nephrology - Vital Signs Vital signs: Period Temp Pulse Resp BP Sys/Maloney Pulse Ox Last 24 Hr 97.9 F 74-94 15-32 130-157/39-75 92-98 Exam: Gen.: Alert. Mildly confused ENT: Pupils equal round reactive to light. EOMs intact. Mucous membranes moist. Neck: Supple. No JVD or bruit. Cardiovascular: Regular rate and rhythm. No murmur rub or gallop Lungs: No rales or wheezes Abdomen: Soft. Nontender. Positive bowel sounds. No organomegaly Extremities: No edema - Lab 11/18/16 04:40 11/18/16 04:40 Most recent lab results ABG pH 7.469 (7.35-7.45) H 11/18/16 05:30 ABG pCO2 29.6 MM HG (35-48) L 11/18/16 05:30 ABG pO2 85.1 MM HG (80-95) 11/18/16 05:30 ABG HCO3 23.2 MMOL/L (20-26) 11/18/16 05:30 ABG O2 Saturation 97.3 % (95-100) 11/18/16 05:30 Calcium 7.8 MG/DL (8.5-10.1) L 11/18/16 04:40 Phosphorus 5.1 MG/DL (2.5-4.9) H 11/15/16 05:30 Magnesium 2.7 MG/DL (1.8-2.4) H 11/18/16 04:40 Assessment and Plan (1) Chronic kidney disease, stage IV (severe) Status: Chronic Assessment and plan: 71-year-old man admitted with: * CRF stage IV. Baseline creatinine upper threes * ARF on CRF. Renal function has declined since yesterday. His fluid balance was positive over the past 3 days, during which time he was weaned from the ventilator and extubated. His ejection fraction is normal. Cardiology has stated that they think his diastolic CHF is compensated. His renal function was improved while he was on the ventilator and his mechanics were better ( controlled by ventilator). His renal function is worsened with attempts at diuresis in the recent past. * Cholecystitis. Status post laparoscopic cholecystectomy * Diastolic CHF. 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 Posttransfusion Current Visit: Yes (2) Diastolic CHF Status: Acute Current Visit: Yes Qualifiers: Congestive heart failure chronicity: acute on chronic Qualified Code(s): I50.33 - Acute on chronic diastolic (congestive) heart failure (3) Pulmonary edema Status: Acute Current Visit: Yes (4) Chronic obstructive pulmonary disease Status: Acute Current Visit: Yes Qualifiers: COPD type: unspecified COPD Qualified Code(s): J44.9 - Chronic obstructive pulmonary disease, unspecified (5) Diabetes mellitus Status: Chronic Current Visit: Yes Qualifiers: Diabetes mellitus type: type 2 Diabetes mellitus complication status: with kidney complications Diabetes mellitus complication detail: with chronic kidney disease Diabetes mellitus long chain beamer insulin use: with long chain beamer use Chronic kidney disease stage: stage 4 (severe) Qualified Code(s): E11.22 - Type 2 diabetes mellitus with diabetic chronic kidney disease; N18.4 - Chronic kidney disease, stage 4 (severe); Z79.4 - MCC (current) use of insulin (6) Hypertension Status: Chronic Current Visit: Yes Qualifiers: Hypertension type: essential hypertension Qualified Code(s): I10 - Essential (primary) hypertension
[2016-11-18 18:42] LABS: Apearance,Urine CLEAR (Clear); Bilirubin,Urine Negative (Negative); Blood, Urine Moderate mg/dL (Negative); Glucose,Urine (UA) Negative (Negative); Ketones,Urine Negative (Negative); Nitrite,Urine Negative (Negative); Protein,Urine 30 MG/DL; RBC,Urine 125 /HPF (0-4); Urine Color Yellow (Yellow); Urine Specific Gravity 1.012 (1.001-1.035); Urine Urobilinogen < 2.0 EU/DL (0.2-1.0); WBC,Urine 2 /HPF (0-6)
[2016-11-18] MEDS: ACETAMINOPHEN 325 MG TABLET PO PRN (20:53)
[2016-11-19] MEDS: ALBUTEROL 2.5 MG/3 ML NEB RESP TX SCH ×4 (00:33→20:19)
[2016-11-19] MEDS: methylPREDNISolone SOD SUC 40 MG/1 ML VIAL IV SCH ×3 (01:15→18:50)
[2016-11-19 02:46] LABS: Basophils % 0.1 % (0.0-0.8); Hematocrit 27.8 VOL% (42.0-52.0); Hemoglobin 9.3 GM/DL (14.0-18.0); Immature Granulocytes % 2.6 %; Immature Granulocytes Absolute 0.53 #; Lymphocytes # 0.2 10*3/uL (1.4-4.0); Lymphocytes % 1.2 % (21.2-54.2); Mean Corpuscular HGB Conc 33.5 GM/DL (32-36); Mean Corpuscular Hemoglobin 27 PG (27-34); Mean Corpuscular Volume 80.8 FL (87-102); Mean Platelet Volume 10.8 FL (9.6-12.0); Monocytes # 0.9 10*3/uL (0.11-0.8); Monocytes % 4.5 % (1.7-12.7); Neutrophils # 18.6 10*3/uL (1.4-7.4); Neutrophils % 91.6 % (38.7-73.9); Platelet Count 231 T/CUMM (130-400); Red Blood Count 3.44 MC/CUMM (3.8-5.5); Red Cell Distribution Width 17.1 % (9.3-17.3); White Blood Count 20.3 T/CUMM (4-12)
[2016-11-19 03:12] LABS: Calcium 8.2 MG/DL (8.5-10.1); Magnesium 2.7 MG/DL (1.8-2.4); Osmolality,Calculated 314.2 MOS/KG (273-304); Potassium 4.2 MMOL/L (3.5-5.1)
[2016-11-19 04:51] LABS: ABG Base Excess -0.3 MMOL/L (-2.5-2.5); ABG PCO2 26.5 MM HG (35-48); ABG PH 7.513 (7.35-7.45); ABG PO2 54.1 MM HG (80-95); ABG TCO2 18.5 MMOL/L (23-27); Allen Test Positive
[2016-11-19 04:57] LABS: Band Neutrophils 2 % (0-10); Myelocytes 1 %; Segmented Neutrophils 95 % (50-85); Total Cells Counted 100
[2016-11-19 04:58] LABS: Anisocytosis 1+; Hypochromasia Slight; Platelet Estimate Normal
[2016-11-19] MEDS: ZIPRASIDONE 20 MG/1 ML VIAL IM PRN ×3 (05:36→21:12)
--- NOTE | 2016-11-19 08:36 | Pulmonology Progress Note ---
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 It has gotten better with steroids and holding the amiodarone. He is off the ventilator. His oxygen saturation is marginal. Will increase oxygen a little bit. Patient is alert and responsive and has no new complaints. Exam (Progress Note) - Constitutional Vitals: Period Temp Pulse Resp BP Sys/Maloney Pulse Ox Last 24 Hr 97.2 F-97.8 F 74-94 18-32 134-189/54-78 86-100 Exam: Patient is responsive lying across the bed with one leg out of it. Wearing nasal oxygen. Appears a little pale. Vital signs normal. Pupils react to light. Throat is clear. Neck supple no bruits. Chest reveals some bibasilar crackles. Heart normal rate and rhythm no murmurs. Abdomen soft no masses. Bowel sounds present. Extremities he still has 1+ peripheral edema. Calves nontender Results - Labs CBC & BMP: 11/19/16 02:32 11/19/16 02:32 Lab Results: I have reviewed the past 24 hour labs - Diagnostic Findings Procedure: Chest x-ray: image reviewed by me (Bilateral interstitial infiltrates. Large over sternum from previous surgery) Assessment and Plan (1) MEGAN (acute kidney injury) Status: Resolved Assessment and plan: Creatinine is crept back up to 5.2. Nephrology following. Current Visit: No (2) Status post aortic valve replacement with bioprosthetic valve Status: Chronic Assessment and plan: Appears to be functioning properly. Current Visit: Yes (3) Pulmonary edema Status: Acute Assessment and plan: Chest x-ray improved from earlier but no change from yesterday. Some interstitial edema. The amiodarone lung infiltrates might take a while to clear. Or they may not clear at all. Current Visit: Yes (4) Amiodarone pulmonary toxicity Status: Acute Assessment and plan: Medicine has been held and patient treated with steroids. Clinically improved. Current Visit: Yes
[2016-11-19] MEDS: INSULIN LISPRO 100 UNIT/ML SUBCUT SCH ×4 (08:42→20:17)
[2016-11-19] MEDS: ASPIRIN EC 81 MG TABLET PO SCH (08:45)
[2016-11-19] MEDS: MUPIROCIN 2% OINT 22 GM TUBE TOP SCH ×2 (08:45→20:17)
[2016-11-19] MEDS: NIFEdipine 10 MG CAPSULE PO SCH ×3 (08:45→20:14)
[2016-11-19] MEDS: ALLOPURINOL 300 MG TABLET PO SCH (08:45)
[2016-11-19] MEDS: ATORVASTATIN 40 MG TABLET PO SCH (08:45)
[2016-11-19] MEDS: METOPROLOL TARTRATE 25 MG TABLET PO SCH ×2 (08:45→20:14)
[2016-11-19] MEDS: DOCUSATE SODIUM 100 MG CAPSULE PO SCH ×2 (08:45→20:15)
[2016-11-19] MEDS: DESITIN 4OZ/NYSTATIN 15 GRAM MIXTURE PASTE TOP SCH ×2 (08:45→20:17)
[2016-11-19] MEDS: FOLIC ACID 0.4 MG TABLET PO SCH (08:45)
[2016-11-19] MEDS: CHOLECALCIFEROL 1,000 UNIT TABLET PO SCH (08:45)
[2016-11-19] MEDS: FAMOTIDINE INJ 40 MG in SODIUM CHLORIDE 0.9% 100 ML IV SCH (09:00)
[2016-11-19] MEDS: INSULIN GLARGINE 100 UNIT/ML SUBCUT SCH (09:03)
--- NOTE | 2016-11-19 09:05 | Cardiology Progress Note ---
Assessment and Plan - Time spent with patient Time spent with patient: Greater than 30 minutes (1) Chronic obstructive pulmonary disease Status: Chronic Assessment and plan: SEE PLAN OF CARE LISTED BELOW Current Visit: Yes Qualifiers: COPD type: unspecified COPD Qualified Code(s): J44.9 - Chronic obstructive pulmonary disease, unspecified (2) Diabetes mellitus Status: Chronic Assessment and plan: SEE PLAN OF CARE LISTED BELOW Current Visit: Yes Qualifiers: Diabetes mellitus type: type 2 Diabetes mellitus complication status: with kidney complications Diabetes mellitus complication detail: with chronic kidney disease Diabetes mellitus shelter insulin use: with wagon washer use Chronic kidney disease stage: stage 4 (severe) Qualified Code(s): E11.22 - Type 2 diabetes mellitus with diabetic chronic kidney disease; N18.4 - Chronic kidney disease, stage 4 (severe); Z79.4 - consulting senior practice director (current) use of insulin (3) Hypertension Status: Chronic Assessment and plan: SEE PLAN OF CARE LISTED BELOW Current Visit: Yes Qualifiers: Hypertension type: essential hypertension Qualified Code(s): I10 - Essential (primary) hypertension (4) Anemia Status: Chronic Assessment and plan: SEE PLAN OF CARE LISTED BELOW Current Visit: No (5) Renal insufficiency Status: Chronic Assessment and plan: SEE PLAN OF CARE LISTED BELOW Current Visit: No (6) Status post aortic valve replacement with bioprosthetic valve Status: Chronic Current Visit: Yes (7) Dyslipidemia Status: Chronic Assessment and plan: SEE PLAN OF CARE LISTED BELOW Current Visit: No (8) Diabetes Status: Chronic Assessment and plan: SEE PLAN OF CARE LISTED BELOW Current Visit: Yes Qualifiers: Diabetes mellitus type: type 2 Diabetes mellitus complication status: with kidney complications (9) Obesity Status: Chronic Assessment and plan: SEE PLAN OF CARE LISTED BELOW Current Visit: No (10) Chronic kidney disease, stage IV (severe) Status: Chronic Assessment and plan: SEE PLAN OF CARE LISTED BELOW Current Visit: Yes (11) Diastolic CHF Status: Acute Assessment and plan: SEE PLAN OF CARE LISTED BELOW Current Visit: Yes Qualifiers: Congestive heart failure chronicity: acute on chronic Qualified Code(s): I50.33 - Acute on chronic diastolic (congestive) heart failure (12) Paroxysmal atrial fibrillation Status: Chronic Assessment and plan: SEE PLAN OF CARE LISTED BELOW Current Visit: Yes Cardiology - PN: Subj Interval history: Etl Analyst Developer: Dr. Franklin PCP: Dr. Pako Summary - Mr. Acosta is a 71-year-old male with a past medical history of diabetes, hypertension, diastolic heart failure, paroxysmal atrial fibrillation (He had been on Coumadin in the past but it was stopped at the [facility] because of noncompliance and difficulty keeping the pro time therapeutic), chronic renal insufficiency, aortic stenosis (now status post tissue aortic valve replacement), history of pulmonary embolism, untreated obstructive sleep apnea and GERD. Patient was admitted to [facility] with recurrent diastolic heart failure. Echo Doppler done September 21, 2016 showed ejection fraction of 60% with grade 3 diastolic dysfunction, moderate dilated left atrium, mitral annular calcification, the aortic tissue valve was sclerotic but open widely. The right ventricle is dilated severe TR PA pressure 65-70 with no effusion. Patient has been anemic throughout this admission. Suspect this is anemia of chronic disease as patient does have history of chronic renal failure. Currently being managed by Dr. Pipo Spaulding. Cardiology was consulted for further assistance in the management of his diastolic heart failure. November UPDATE: Patient was seen and examined in the CCU. Currently, resting in bed in no acute distress. Currently requiring oxygen via Ventimask. Patient seems to be somewhat confused. 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 He is status post cholecystectomy per Dr. Gray. Today postop day #7. Patient underwent bronchoscopy earlier this week which revealed amiodarone lung, COPD and scattered areas of mild erosive friable bronchitis. Bronchoscopy specimens are growing a gram-negative rods. Pulmonary is following. Creatinine trended up this morning to 4.6 with a BUN of 124. Sodium is 133. Potassium 4.2. H&H stable at 9.[address] Pipo Spaulding is following. Patient may require dialysis at some point. Blood pressure is well controlled today. Abdominal incisions are healing well without signs of infection. Vital signs are stable. Patient is currently normal sinus rhythm with heart rates in the 90s without any overt arrhythmias or ectopy noted. At this point, patient is stable from a cardiac standpoint and we have nothing new to add. Will continue current plan of care. NOVEMBER 19, 2016: Minimal improvement. He is resting comfortably in bed. He continues to require oxygen but has been placed on 2 L via nasal cannula. Chest x-ray revealed minimal improvement with diffuse bilateral infiltrates versus edema. Denies chest pain, heaviness or tightness. Daily weights remain unchanged for several days. Creatinine continues to worsen and is noted to be 5.2 today. Anemia seems to be stable. Continues to take aspirin daily, metoprolol twice daily. Amiodarone was discontinued for fear it may be contributing to his lung exacerbation. Overnight, he remains in normal sinus rhythm. ASSESSMENT/PLAN: 1. ACUTE EXACERBATION OF CHRONIC OBSTRUCTIVE AIRWAYS DISEASE - slowly improving. Management per pulmonary. Continue breathing treatments and steroid therapy. 2. PULMONARY HYPERTENSION - Etiology undetermined. RVSP 79mmHg + RAP. Continue current plan of care. 3. HYPERTENSION - Patient's blood pressure is well controlled. Will continue current plan of care at this time. Will further adjust as needed. Avoiding CANDY inhibitor and ARB due to fear of worsening renal function. Avoiding increasing beta jim dose due to patient's significant lung disease. Will make further adjustments as needed throughout his hospital stay. 4. ANEMIA - Likely anemia of chronic disease as patient has chronic renal disease. Stool was negative for occult blood this admission. No overt bleeding noted. Continue to monitor closely with Daily CBC. 5. PAROXYSMAL ATRIAL FIBRILLATION - Currently in normal sinus rhythm. Amiodarone has been discontinued as this may be contributing to his lung disease. Suspect that he will develop Afib with RVR as we discontinue the Amiodarone but it will take some time for this to wear off. We will adjust and address this as it arises. 6. CHRONIC RENAL FAILURE - stage IV. This is acute on chronic renal insufficiency. Unfortunately, patient's creatinine continues to worsen. Dr. Pipo Spaulding is following.. Patient may require dialysis at some point. 7. S/P AVR - Stable status post pericardial aortic valve. 8. HISTORY OF CVA - Remains at high risk for CVA however he has not a candidate for formal anticoagulation given the significance of his anemia. 9. ACUTE CHOLECYSTITIS - Patient is now status post cholecystectomy. Postop day #8. Abdominal incisions are healing well no signs of infection. Surgery is following. 10. DIASTOLIC CHF - Compensated. No recurrence of overt diastolic heart failure noted. 11. AMIODARONE LUNG - Improving. Amiodarone has been discontinued last week. Management per pulmonary. Continue with steroid therapy. 12. LEUKOCYTOSIS - Thought to be steroid-induced. However, chest x-ray today cannot rule out possible infectious process. Pulmonary is following and will address. Exam (Progress Note) - Constitutional Vitals: Period Temp Pulse Resp BP Sys/Maloney Pulse Ox Last 24 Hr 97.2 F-97.8 F 74-94 18-32 134-186/54-78 86-100 Exam: Exam: General: Appears well with no acute distress. Appears comfortable. Wearing oxygen via nasal canula HEENT: PERRL, normocephalic, atraumatic. Mucous membranes moist. No jaundice noted. Conjunctiva moist and clear, sclerae anicteric Neck: No obvious JVD/HJR, no thyromegaly or lymphadenopathy noted. No carotid bruit appreciated Cardiac: Regular rate and rhythm. II/ HSM heard best at 5ICS left. Lungs: Coarse breath sounds. Requiring oxygen Via nasal canula. Symmetrical chest wall movements. Abdomen: Soft, normal bowel sounds. Abdominal incisions healing well without signs of infection. Extremities: No clubbing, cyanosis noted. No edema noted. Upper extremity pulses 2+. Lower extremity pulses 2+. Capillary refill less than 3 seconds. Neuro: Confused, no tremor noted. Result/EKG - Labs CBC & BMP: 11/19/16 02:32 11/19/16 02:32 Lab Results: I have reviewed the past 24 hour labs Labs: Laboratory Results - last 24 hr 11/18/16 11/18/16 11/18/16 07:27 11:03 16:28 WBC RBC Hgb Hct MCV MCH MCHC RDW Plt Count MPV Neut % (Auto) Lymph % (Auto) [place] % (Auto) Eos % (Auto) Baso % (Auto) Neut # (Auto) Lymph # (Auto) [place] # (Auto) Eos # (Auto) Baso # (Auto) Total Counted Immature Gran % Nucleated RBC % Immature Gran # Segmented Neutrophils Band Neutrophils Monocytes Myelocytes Nucleated RBCs # Platelet Estimate Hypochromasia Anisocytosis ABG pH ABG pCO2 ABG pO2 ABG HCO3 ABG Total CO2 ABG O2 Saturation ABG Base Excess FiO2 Sodium Potassium Chloride Carbon Dioxide Anion Gap BUN Creatinine GFR Calculation BUN/Creatinine Ratio Glucose POC Glucose 259 H 159 H 141 H Calculated Osmolality Calcium Magnesium B-Natriuretic Peptide Urine Color Urine Appearance Urine pH Ur Specific [place] Urine Protein Urine Glucose (UA) Urine Ketones Urine Blood Urine Nitrate Urine Bilirubin Urine Urobilinogen Urine Leukocytes Urine RBC Urine WBC Ur Culture Indicated? 11/18/16 11/18/1611/19/17 18:35 20:29 02:32 WBC 20.3 H RBC 3.44 L Hgb 9.3 L Hct 27.8 L MCV 80.8 L MCH 27 MCHC 33.5 RDW 17.1 Plt Count 231 MPV 10.8 Neut % (Auto) 91.6 H Lymph % (Auto) 1.2 L [place] % (Auto) 4.5 Eos % (Auto) 0.0 Baso % (Auto) 0.1 Neut # (Auto) 18.6 H Lymph # (Auto) 0.2 L [place] # (Auto) 0.9 H Eos # (Auto) 0.0 Baso # (Auto) 0.0 Total Counted 100 Immature Gran % 2.6 Nucleated RBC % 0.0 Immature Gran # 0.53 Segmented Neutrophils 95 H Band Neutrophils 2 Monocytes 2 Myelocytes 1 Nucleated RBCs # 0.00 Platelet Estimate Normal Hypochromasia Slight Anisocytosis 1+ ABG pH ABG pCO2 ABG pO2 ABG HCO3 ABG Total CO2 ABG O2 Saturation ABG Base Excess FiO2 Sodium Potassium Chloride Carbon Dioxide Anion Gap BUN Creatinine GFR Calculation BUN/Creatinine Ratio Glucose POC Glucose 157 H Calculated Osmolality Calcium Magnesium B-Natriuretic Peptide Urine Color Yellow Urine Appearance Clear Urine pH 5.0 Ur Specific [place] 1.012 Urine Protein 30 Urine Glucose (UA) Negative Urine Ketones Negative Urine Blood Moderate Urine Nitrate Negative Urine Bilirubin Negative Urine Urobilinogen < 2.0 H Urine Leukocytes Negative Urine RBC 125 Urine WBC 2 Ur Culture Indicated? Not indicated 11/19/16 11/19/16 11/19/16 02:32 02:32 04:22 WBC RBC Hgb Hct MCV MCH MCHC RDW Plt Count MPV Neut % (Auto) Lymph % (Auto) [place] % (Auto) Eos % (Auto) Baso % (Auto) Neut # (Auto) Lymph # (Auto) [place] # (Auto) Eos # (Auto) Baso # (Auto) Total Counted Immature Gran % Nucleated RBC % Immature Gran # Segmented Neutrophils Band Neutrophils Monocytes Myelocytes Nucleated RBCs # Platelet Estimate Hypochromasia Anisocytosis ABG pH 7.513 H ABG pCO2 26.5 L ABG pO2 54.1 L ABG HCO3 24.0 ABG Total CO2 18.5 L ABG O2 Saturation 89.0 L ABG Base Excess -0.3 FiO2 36.00 Sodium 134 L Potassium 4.2 Chloride 94 L Carbon Dioxide 23 Anion Gap 21.2 H BUN 135 H D Creatinine 5.20 H GFR Calculation 15 BUN/Creatinine Ratio 25.00 H Glucose 150 H POC Glucose Calculated Osmolality 314.2 H Calcium 8.2 L Magnesium 2.7 H B-Natriuretic Peptide 631 H Urine Color Urine Appearance Urine pH Ur Specific [place] Urine Protein Urine Glucose (UA) Urine Ketones Urine Blood Urine Nitrate Urine Bilirubin Urine Urobilinogen Urine Leukocytes Urine RBC Urine WBC Ur Culture Indicated? 11/19/16 07:53 WBC RBC Hgb Hct MCV MCH MCHC RDW Plt Count MPV Neut % (Auto) Lymph % (Auto) [place] % (Auto) Eos % (Auto) Baso % (Auto) Neut # (Auto) Lymph # (Auto) [place] # (Auto) Eos # (Auto) Baso # (Auto) Total Counted Immature Gran % Nucleated RBC % Immature Gran # Segmented Neutrophils Band Neutrophils Monocytes Myelocytes Nucleated RBCs # Platelet Estimate Hypochromasia Anisocytosis ABG pH ABG pCO2 ABG pO2 ABG HCO3 ABG Total CO2 ABG O2 Saturation ABG Base Excess FiO2 Sodium Potassium Chloride Carbon Dioxide Anion Gap BUN Creatinine GFR Calculation BUN/Creatinine Ratio Glucose POC Glucose 148 H Calculated Osmolality Calcium Magnesium B-Natriuretic Peptide Urine Color Urine Appearance Urine pH Ur Specific [place] Urine Protein Urine Glucose (UA) Urine Ketones Urine Blood Urine Nitrate Urine Bilirubin Urine Urobilinogen Urine Leukocytes Urine RBC Urine WBC Ur Culture Indicated? - Diagnostic Findings Procedure: Chest x-ray: report reviewed by me - EKG EKG results: interpreted by me EKG shows: sinus rhythm
--- NOTE | 2016-11-19 10:08 | XRay Report ---
History is CHF Comparison 11/18/2016 The heart remains enlarged There has been mild improvement with continued moderate reticulonodular and hazy bilateral pulmonary opacities without more focal consolidated pneumonia is seen Impression: Mild improvement with continued diffuse bilateral infiltrates versus edema PROCEDURE INTERPRETED AT [facility] DEPARTMENT OF RADIOLOGY Final Report Signed by: Dr. Marlena Chavez
[2016-11-19] MEDS: cefTAZidime 500 MG in SODIUM CHLORIDE 0.9% 100 ML IV SCH ×2 (11:00→23:02)
[2016-11-19] MEDS: HEPARIN 5,000 UNIT/1 ML VIAL SUBCUT SCH ×2 (11:10→21:12)
--- NOTE | 2016-11-19 11:44 | Event Note ---
General Surgery Progress Note Chief complaint This patient is a 71-year-old man with multiple medical problems who developed acute cholecystitis treated with laparoscopic cholecystectomy on 11/11/2016 Interval history The patient continues to have psychosis from mixture of ICU delirium as well as high-dose steroids and possibly uremic encephalopathy as well. Is not eating much. This is secondary to his mental status. Physical exam Abdominal incisions are clean with no evidence of infection. There are normal bowel sounds. Labs Reviewed, BUN is rising. Creatinine is rising Imaging Reviewed Assessment and plan Continue current care I am available for dialysis catheter if needed Continue diet as tolerated although the patient's mental status will probably be his limiting factor in p.o. intake Consider Dobbhoff tube for tube feeds
[2016-11-19] MEDS: MINOXIDIL 2.5 MG TABLET PO SCH ×2 (12:21→20:15)
--- NOTE | 2016-11-19 12:37 | Nephrology Progress Note ---
Nephrology - PN: Subj Interval history: Patient is unresponsive for me, apparently the patient was confused and agitated earlier today and required some Geodon. He is now fairly sedate. Physical exam general the patient is chronically ill-appearing, heart is regular rate and rhythm, he has trace lower extremity edema, lungs are clear to auscultation, abdomen is soft with positive bowel sounds Assessment/plan 1. Acute renal failure-this patient's creatinine and blood urea nitrogen have been increasing mildly over the past 3-4 days. He did receive a single dose of Lasix yesterday midday and did seem to respond to this with increased urine output of about 100 cc for several hours. His urine output has drifted back down to around 20 cc an hour. I suspect his injury is multifactorial in etiology related to poor cardiac function with severe pulmonary hypertension, grade 3 diastolic dysfunction and hypoxia related to his lung disease, he also has decreased intravascular volume related to his anemia and I would suspect he has some hypoalbuminemia. With his tenuous lung status I am reticent to give him any IV fluids at this point. I think the best we can do presently is try and keep his volume status as even as possible and continue supportive care. He may ultimately come to require hemodialysis. 2. Amiodarone lung toxicity 3. Anemia 4. Agitation he has had a slow rise in his urea nitrogen level I would not think that this is a major contributor to his altered mental function suspect this is more related to hypoxia. Exam (PN)-Nephrology - Vital Signs Vital signs: Period Temp Pulse Resp BP Sys/Maloney Pulse Ox Last 24 Hr 97.2 F-97.8 F 74-94 18-28 134-165/54-78 86-100 - Lab 11/19/16 02:32 11/19/16 02:32 Most recent lab results ABG pH 7.513 (7.35-7.45) H 11/19/16 04:22 ABG pCO2 26.5 MM HG (35-48) L 11/19/16 04:22 ABG pO2 54.1 MM HG (80-95) L 11/19/16 04:22 ABG HCO3 24.0 MMOL/L (20-26) 11/19/16 04:22 ABG O2 Saturation 89.0 % (95-100) L 11/19/16 04:22 Calcium 8.2 MG/DL (8.5-10.1) L 11/19/16 02:32 Phosphorus 5.1 MG/DL (2.5-4.9) H 11/15/16 05:30 Magnesium 2.7 MG/DL (1.8-2.4) H 11/19/16 02:32
--- NOTE | 2016-11-19 14:21 | Hospitalist Progress Note ---
Assessment and Plan (1) Acute encephalopathy Status: Acute Assessment and plan: Prob due to hypoxia, infecion, and worsening kidney function. Pulm Nephrology, Neurology and ID f/u. Current Visit: Yes (2) Pneumonia Status: Acute Assessment and plan: ID evaluated pt yesterday. Antibiotics per ID. Reeval in am. Current Visit: Yes (3) Acute cholecystitis Status: Acute Assessment and plan: POD #7, continue current treatment plan. Improving. Can tolerate current diet. Current Visit: Yes (4) Pulmonary hypertension Status: Acute Assessment and plan: Pulm f/u. Current Visit: Yes (5) Amiodarone pulmonary toxicity Status: Acute Assessment and plan: Pulm f/u Current Visit: Yes (6) Chronic obstructive pulmonary disease Status: Chronic Assessment and plan: Continue oxygen and NEB. Continue steroid. Pulm f/u. Current Visit: Yes Qualifiers: COPD type: unspecified COPD Qualified Code(s): J44.9 - Chronic obstructive pulmonary disease, unspecified (7) Paroxysmal atrial fibrillation Status: Chronic Assessment and plan: EKG in am. Current Visit: Yes (8) Diabetes mellitus Status: Chronic Assessment and plan: Continue insulin coverage. Current Visit: Yes Qualifiers: Diabetes mellitus type: type 2 Diabetes mellitus complication status: with kidney complications Diabetes mellitus complication detail: with chronic kidney disease Diabetes mellitus manager terminal insulin use: with manager terminal use Chronic kidney disease stage: stage 4 (severe) Qualified Code(s): E11.22 - Type 2 diabetes mellitus with diabetic chronic kidney disease; N18.4 - Chronic kidney disease, stage 4 (severe); Z79.4 - detention (current) use of insulin Hospitalist: Subjective Interval history: 11/19/16:No overnight acute event. Awake but confused. ABG showed hypoxia. Worsening BUN/Cr level. Oliguria continued. On IV steroid, IV antibiotics. No fever, vomiting, diarrhea or hematuria reported per staff mine warfare officer. 11/18/16: Appeared to be confused today per staff mine warfare officer. Worsening leukocytosis, but on IV steroid. No resp care, oxygen and NEB treatment. On IV antibiotics. No fever, headache, chest pain or abd pain reported per staff mine warfare officer. Will consult ID and Neurology today. 11/17/16: Extubated since yesterday and no overnight acute event. Can talk and eat. On oxygen by NC. No fever, vomiting, diarrhea, chest pain or abd pain reported per staff mine warfare officer. 11/16/[address] Burgos: Postoperative day #5 s/p laparoscopic cholecystectomy. Unable to wean from the vent after surgery but now likely extubation today. Seems to be doing well from that standpoint. He has remained hemodynamically stable. Of note, WBC count increased to 19K. No associated fever or hypotension. Abdominal incisions are healing well without evidence of infection. Not currently on abx. Patient is on IV steroids but has been on these for several days. CXR done today with questionable infiltrate vs pulmonary edema. No obvious indication for abx right now. All labs do seem somewhat c/w possible hemoconcentration. Therefore will increase IVF's and will monitor WBC count. Culture with any fever or decompensation prior to initiation of abx. Exam - Constitutional Vitals: Period Temp Pulse Resp BP Sys/Maloney Pulse Ox Last 24 Hr 97.2 F-97.8 F 74-94 18-28 134-165/54-78 86-99 Exam: GENERAL: Lying in bed supine. On oxygen, Awake but confused. HEENT: Pupils equally round and reactive to light, conjunctivae clear. Normal lips, teeth and gums. NECK: Supple without mass. HEART: Irregularly irregular, no gallops CHEST: Normal shape, fair air movement, no retractions. CV: RRR, no murmurs, 2+ peripheral pulses LUNGS: Decreased breath sound at b/l lower lobes. ABDOMEN: Soft, nontender, and no hepatosplenomegaly. SKIN: No rash or edema. Pale. LYMPH: No anterior or posterior cervical, or supraclavicular lymphadenopathy. NEURO: Awake. Confused. Results - Labs CBC & BMP: 11/19/16 02:32 11/19/16 02:32
[2016-11-19] MEDS: SODIUM CHLORIDE 0.9% 1,000 ML IV SCH (15:34)
[2016-11-19] MEDS: CLORAZEPATE 3.75 MG TABLET PO PRN (20:14)
[2016-11-20] MEDS: methylPREDNISolone SOD SUC 40 MG/1 ML VIAL IV SCH ×3 (01:24→16:40)
[2016-11-20] MEDS: ALBUTEROL 2.5 MG/3 ML NEB RESP TX SCH ×4 (01:44→19:48)
[2016-11-20] MEDS: ZIPRASIDONE 20 MG/1 ML VIAL IM PRN ×3 (03:00→23:31)
[2016-11-20 03:10] LABS: Basophils % 0.1 % (0.0-0.8); Hematocrit 25.8 VOL% (42.0-52.0); Hemoglobin 8.5 GM/DL (14.0-18.0); Immature Granulocytes % 1.5 %; Immature Granulocytes Absolute 0.28 #; Lymphocytes # 0.3 10*3/uL (1.4-4.0); Lymphocytes % 1.6 % (21.2-54.2); Mean Corpuscular HGB Conc 32.9 GM/DL (32-36); Mean Corpuscular Hemoglobin 27 PG (27-34); Mean Corpuscular Volume 81.4 FL (87-102); Mean Platelet Volume 12.2 FL (9.6-12.0); Monocytes % 5.5 % (1.7-12.7); Neutrophils % 91.3 % (38.7-73.9); Platelet Count 187 T/CUMM (130-400); Red Blood Count 3.17 MC/CUMM (3.8-5.5); Red Cell Distribution Width 17.3 % (9.3-17.3); White Blood Count 18.6 T/CUMM (4-12)
[2016-11-20 03:39] LABS: Calcium 8.4 MG/DL (8.5-10.1); Osmolality,Calculated 321.8 MOS/KG (273-304)
[2016-11-20] MEDS: CLORAZEPATE 3.75 MG TABLET PO PRN ×3 (04:15→21:19)
[2016-11-20 04:17] LABS: ABG Base Excess -1.6 MMOL/L (-2.5-2.5); ABG HCO3 22.9 MMOL/L (20-26); ABG Oxygen Saturation 88.3 % (95-100); ABG PCO2 27.3 MM HG (35-48); ABG PH 7.487 (7.35-7.45); ABG PO2 54.1 MM HG (80-95); ABG TCO2 18.5 MMOL/L (23-27); Allen Test Positive
[2016-11-20 04:48] LABS: Eosinophils 1 % (0-10); Lymphocytes 2 % (20-55); Segmented Neutrophils 95 % (50-85); Total Cells Counted 100
[2016-11-20 04:49] LABS: Platelet Estimate Normal
--- NOTE | 2016-11-20 07:57 | Pulmonology Progress Note ---
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 It has gotten better with steroids and holding the amiodarone. He is off the ventilator. His oxygen saturation is marginal. Will increase oxygen a little bit. Patient is alert and responsive and has no new complaints. 11/20/2016 patient appears anxious. Oxygen saturations acceptable. No new complaints. Exam (Progress Note) - Constitutional Vitals: Period Temp Pulse Resp BP Sys/Maloney Pulse Ox Last 24 Hr 97.1 F-97.6 F 73-102 15-27 103-172/40-82 90-100 Exam: Patient is responsive, somewhat anxious. Wearing nasal oxygen. Appears a little pale. Vital signs normal. Pupils react to light. Throat is clear. Neck supple no bruits. Chest reveals some bibasilar crackles. Heart normal rate and rhythm no murmurs. Abdomen soft no masses. Bowel sounds present. Extremities he still has 1+ peripheral edema. Calves nontender. Little change from yesterday. Results - Labs CBC & BMP: 11/20/16 02:22 11/20/16 02:22 Lab Results: I have reviewed the past 24 hour labs - Diagnostic Findings Procedure: Chest x-ray: image reviewed by me (Persistent pulmonary edema. Wires from previous heart surgery.) Assessment and Plan (1) MEGAN (acute kidney injury) Status: Resolved Assessment and plan: Creatinine is crept back up to 5.2. Nephrology following. 11/20/2016 creatinine 5.9. Defer to acid operator Current Visit: No (2) Status post aortic valve replacement with bioprosthetic valve Status: Chronic Assessment and plan: Appears to be functioning properly. Current Visit: Yes (3) Pulmonary edema Status: Acute Assessment and plan: Chest x-ray improved from earlier but no change from yesterday. Some interstitial edema. The amiodarone lung infiltrates might take a while to clear. Or they may not clear at all. 11/20/2016 chest x-ray does still look wet. Oxygen saturation okay. Current Visit: Yes (4) Amiodarone pulmonary toxicity Status: Acute Assessment and plan: Medicine has been held and patient treated with steroids. Clinically improved. Current Visit: Yes
--- NOTE | 2016-11-20 07:57 | EKG Report ---
Stationary ECG Study [facility] Test Date: 11/20/2016 7:57:40 AM Pat Name: MALAIKA DRAKE Department: Room: 126 Gender: M Senior Cobol Developer: : [id number] Requested by: Rohit Tripathi Order Number: [id number] Reading MD: SHRADDHA SEE Intervals [place] Rate: 83 P: 84 TN: 224 QRS: -64 QRSD: 118 T: 108 QT: 395 QTc: 434 Interpretive Statements SINUS RHYTHM WITH PROLONGED TN INTERVAL MARKED LEFT AXIS DEVIATION PATTERN CONSISTENT WITH PULMONARY DISEASE MODERATE INTRAVENTRICULAR CONDUCTION DELAY ST DEVIATION AND MODERATE T-WAVE ABNORMALITY, CONSIDER LATERAL ISCHEMIA Electronically Signed On 11-21-16 10:34:56 CDT by SHRADDHA SEE [email or web address]
--- NOTE | 2016-11-20 08:31 | Nephrology Progress Note ---
Nephrology - PN: Subj Interval history: Patient more coherent and calm this morning. Physical exam general patient is chronically ill-appearing, heart is regular rate and rhythm, he has trace pretibial edema and some swelling in his upper extremities, lungs are clear to auscultation anteriorly, abdomen is soft with occasional bowel sound, urine output was about 650/24 hours yesterday Assessment/plan 1. Acute renal failure-this patient's creatinine continues to rise, he is likely to need dialysis in the near future. 2. Hypoxia-patient's requiring more supplemental O2, his weight has increased slightly from yesterday his urine output has decreased if this trend continues touching him with Lasix may be in order albeit this may make his kidney function decline progress more rapidly. 3. Amiodarone lung toxicity 4. Pulmonary hypertension 5. Anemia-patient's hematocrit is 26% down a little from yesterday. Exam (PN)-Nephrology - Vital Signs Vital signs: Period Temp Pulse Resp BP Sys/Maloney Pulse Ox Last 24 Hr 97.1 F-97.6 F 73-102 15-27 103-172/40-82 90-100 - Lab 11/20/16 02:22 11/20/16 02:22 Most recent lab results ABG pH 7.487 (7.35-7.45) H 11/20/16 04:00 ABG pCO2 27.3 MM HG (35-48) L 11/20/16 04:00 ABG pO2 54.1 MM HG (80-95) L 11/20/16 04:00 ABG HCO3 22.9 MMOL/L (20-26) 11/20/16 04:00 ABG O2 Saturation 88.3 % (95-100) L 11/20/16 04:00 Calcium 8.4 MG/DL (8.5-10.1) L 11/20/16 02:22 Phosphorus 5.1 MG/DL (2.5-4.9) H 11/15/16 05:30 Magnesium 3.0 MG/DL (1.8-2.4) H 11/20/16 02:22
[2016-11-20] MEDS: INSULIN LISPRO 100 UNIT/ML SUBCUT SCH ×4 (08:43→21:12)
[2016-11-20] MEDS: INSULIN GLARGINE 100 UNIT/ML SUBCUT SCH (08:48)
[2016-11-20] MEDS: COLCHICINE 0.6 MG TABLET PO SCH (08:50)
[2016-11-20] MEDS: NIFEdipine 10 MG CAPSULE PO SCH ×3 (08:50→21:19)
[2016-11-20] MEDS: ALLOPURINOL 300 MG TABLET PO SCH (08:50)
[2016-11-20] MEDS: DOCUSATE SODIUM 100 MG CAPSULE PO SCH ×2 (08:51→21:19)
[2016-11-20] MEDS: ATORVASTATIN 40 MG TABLET PO SCH (08:51)
[2016-11-20] MEDS: HYDROXYCHLOROQUINE 200 MG TABLET PO SCH (08:51)
[2016-11-20] MEDS: ASPIRIN EC 81 MG TABLET PO SCH (08:51)
[2016-11-20] MEDS: FOLIC ACID 0.4 MG TABLET PO SCH (08:51)
[2016-11-20] MEDS: METOPROLOL TARTRATE 25 MG TABLET PO SCH ×2 (08:51→21:20)
[2016-11-20] MEDS: CHOLECALCIFEROL 1,000 UNIT TABLET PO SCH (08:51)
[2016-11-20] MEDS: DESITIN 4OZ/NYSTATIN 15 GRAM MIXTURE PASTE TOP SCH ×2 (09:09→21:20)
[2016-11-20] MEDS: MINOXIDIL 2.5 MG TABLET PO SCH ×2 (09:09→21:19)
[2016-11-20] MEDS: FAMOTIDINE INJ 40 MG in SODIUM CHLORIDE 0.9% 100 ML IV SCH (09:09)
[2016-11-20] MEDS: HEPARIN 5,000 UNIT/1 ML VIAL SUBCUT SCH ×2 (09:11→21:20)
--- NOTE | 2016-11-20 09:29 | XRay Report ---
History is CHF Comparison 11/19/2016 The heart is enlarged There remains a moderate diffuse bilateral reticulonodular and hazy pulmonary opacities similar on the prior study Impression: No interval change in bilateral pulmonary opacities. Follow-up until clear recommended PROCEDURE INTERPRETED AT [facility] DEPARTMENT OF RADIOLOGY Final Report Signed by: Dr. Marlena Chavez
--- NOTE | 2016-11-20 09:48 | Hospitalist Progress Note ---
Assessment and Plan - Time spent with patient Time spent with patient: Greater than 30 minutes (1) Acute renal failure Status: Acute Assessment and plan: Worsening cr level and oliguria in past few days. Most likely will need HD in nearly future. Nephrology f/u. BMP in am. Current Visit: Yes (2) Acute encephalopathy Status: Acute Assessment and plan: Prob due to hypoxia, infecion, and worsening kidney function. Pulm Nephrology, Neurology and ID f/u. Current Visit: Yes (3) Pneumonia Status: Acute Assessment and plan: ID evaluated pt yesterday. Antibiotics per ID. Reeval in am. Current Visit: Yes (4) Acute cholecystitis Status: Acute Assessment and plan: POD #7, continue current treatment plan. Improving. Can tolerate current diet. Current Visit: Yes (5) Pulmonary hypertension Status: Acute Assessment and plan: Pulm f/u. Current Visit: Yes (6) Amiodarone pulmonary toxicity Status: Acute Assessment and plan: Pulm f/u Current Visit: Yes (7) Chronic obstructive pulmonary disease Status: Chronic Assessment and plan: Continue oxygen and NEB. Continue steroid. Pulm f/u. Current Visit: Yes Qualifiers: COPD type: unspecified COPD Qualified Code(s): J44.9 - Chronic obstructive pulmonary disease, unspecified (8) Paroxysmal atrial fibrillation Status: Chronic Assessment and plan: EKG in am. Current Visit: Yes (9) Diabetes mellitus Status: Chronic Assessment and plan: Continue insulin coverage. Current Visit: Yes Qualifiers: Diabetes mellitus type: type 2 Diabetes mellitus complication status: with kidney complications Diabetes mellitus complication detail: with chronic kidney disease Diabetes mellitus joint terminal attack controller insulin use: with joint terminal attack controller use Chronic kidney disease stage: stage 4 (severe) Qualified Code(s): E11.22 - Type 2 diabetes mellitus with diabetic chronic kidney disease; N18.4 - Chronic kidney disease, stage 4 (severe); Z79.4 - retirement (current) use of insulin Hospitalist: Subjective Interval history: 11/20/16; No overnight acute event. Has sinus tachy this am. Cr level up to 5.9 today. Glucose level 108 today. Will decrease lantus dosage. Pulm/ID/Nephrology f/u. Prob need Dialysis in nearly future. No fever or diarrhea reported per RN today. 11/19/16:No overnight acute event. Awake but confused. ABG showed hypoxia. Worsening BUN/Cr level. Oliguria continued. On IV steroid, IV antibiotics. No fever, vomiting, diarrhea or hematuria reported per public health staff nurse. 11/18/16: Appeared to be confused today per public health staff nurse. Worsening leukocytosis, but on IV steroid. No resp care, oxygen and NEB treatment. On IV antibiotics. No fever, headache, chest pain or abd pain reported per public health staff nurse. Will consult ID and Neurology today. 11/17/16: Extubated since yesterday and no overnight acute event. Can talk and eat. On oxygen by NC. No fever, vomiting, diarrhea, chest pain or abd pain reported per public health staff nurse. 11/16/[address] Burgos: Postoperative day #5 s/p laparoscopic cholecystectomy. Unable to wean from the vent after surgery but now likely extubation today. Seems to be doing well from that standpoint. He has remained hemodynamically stable. Of note, WBC count increased to 19K. No associated fever or hypotension. Abdominal incisions are healing well without evidence of infection. Not currently on abx. Patient is on IV steroids but has been on these for several days. CXR done today with questionable infiltrate vs pulmonary edema. No obvious indication for abx right now. All labs do seem somewhat c/w possible hemoconcentration. Therefore will increase IVF's and will monitor WBC count. Culture with any fever or decompensation prior to initiation of abx. Exam - Constitutional Vitals: Period Temp Pulse Resp BP Sys/Maloney Pulse Ox Last 24 Hr 97.1 F-97.6 F 73-102 15-27 103-172/40-82 90-100 Exam: GENERAL: Lying in bed supine. On oxygen, Awake alert. HEENT: Pupils equally round and reactive to light, conjunctivae clear. Normal lips, teeth and gums. NECK: Supple without mass. HEART: Irregularly irregular, no gallops CHEST: Normal shape, fair air movement, no retractions. CV: RRR, no murmurs, 2+ peripheral pulses LUNGS: Decreased breath sound at b/l lower lobes. ABDOMEN: Soft, nontender, and no hepatosplenomegaly. SKIN: No rash or edema. Pale. LYMPH: No anterior or posterior cervical, or supraclavicular lymphadenopathy. NEURO: Awake. alert but not oriented. Results - Labs CBC & BMP: 11/20/16 02:22 11/20/16 02:22
[2016-11-20] MEDS: cefTAZidime 500 MG in SODIUM CHLORIDE 0.9% 100 ML IV SCH ×2 (10:27→22:28)
[2016-11-20] MEDS: MUPIROCIN 2% OINT 22 GM TUBE TOP SCH ×2 (10:28→21:19)
--- NOTE | 2016-11-20 11:30 | Event Note ---
General Surgery Progress Note Chief complaint This patient is a 71-year-old man with multiple medical problems who developed acute cholecystitis treated with laparoscopic cholecystectomy on 11/11/2016 Interval history The patient is a little bit better mentally today. He did take in 2 of the Glucerna shakes yesterday which has about 600 [place]mira in it. He is not really eating much beyond this. He does not seem like a good candidate for a Dobbhoff tube because of his delirium he would probably pull it out. His creatinine and BUN continued to worsen. His saturating well on supplemental oxygen by nasal cannula. Physical exam Abdominal incisions are clean with no evidence of infection. Labs Reviewed, BUN is rising. Creatinine is rising Imaging Reviewed Assessment and plan Continue current care I will sign off from standpoint of laparoscopic cholecystectomy but I have discussed with the nurses today that he needs to try to drink 6 glucerna a day to maintain his nutrition and heal his surgical wounds. They are going to do their best to try to encourage him to take this in. Other options would be a Dobbhoff tube for supplemental tube feeds or TPN but I would recommend not doing TPN since he has a functional GI tract that we should be able to use. Please call back with any further questions or if dialysis is necessary and you would like a catheter placed.
--- NOTE | 2016-11-20 16:35 | Cardiology Progress Note ---
Assessment and Plan (1) Amiodarone pulmonary toxicity Status: Acute Assessment and plan: Slow improvement treating amiodarone lung toxicity Some wheezing Seems to have adequate respiratory drive with low PCO2 Some confusion plan to ambulate Current Visit: Yes (2) Wheezing Status: Acute Current Visit: Yes (3) Acute encephalopathy Status: Acute Current Visit: Yes (4) Acute exacerbation of chronic obstructive airways disease Status: Acute Current Visit: Yes (5) Acute kidney injury superimposed on chronic kidney disease Problem details: No acute indication for renal replacement therapy at this time. Status: Acute Current Visit: Yes (6) Acute renal failure Status: Acute Current Visit: Yes (7) Altered mental status Status: Acute Current Visit: Yes (8) Chronic pain Status: Acute Current Visit: Yes (9) Status post aortic valve replacement with bioprosthetic valve Status: Chronic Current Visit: Yes (10) Acute CVA (cerebrovascular accident) Status: Acute Current Visit: No (11) Dyslipidemia Status: Chronic Current Visit: No (12) Renal insufficiency Status: Chronic Current Visit: No (13) Sleep disorder Status: Chronic Current Visit: No (14) MEGAN (acute kidney injury) Status: Resolved Current Visit: No Cardiology - PN: Subj Interval history: No chest pain or significant shortness of breath Exam (Progress Note) - Constitutional Vitals: Period Temp Pulse Resp BP Sys/Maloney Pulse Ox Last 24 Hr 97.2 F-97.7 F 73-102 15-27 108-172/49-79 90-100 Exam: HEENT: Pupils equal, reactive to light and accommodation Neck: NoJVD or bruit Lungs clear to auscultation Heart: Regular rhythm rate with normal S1 and S2. Apical S4 Abdomen: No hepatosplenomegaly Spine/extremities: No clubbing, cyanosis, or edema Neuro: See below Psych: No depression or anxiety Some confusion Result/EKG - Labs CBC & BMP: 11/20/16 02:22 11/20/16 02:22 Lab Results: I have reviewed the past 24 hour labs Labs: Laboratory Results - last 24 hr 11/19/16 11/19/16 11/20/16 16:56 19:46 02:22 WBC 18.6 H RBC 3.17 L Hgb 8.5 L Hct 25.8 L MCV 81.4 L MCH 27 MCHC 32.9 RDW 17.3 Plt Count 187 MPV 12.2 H Neut % (Auto) 91.3 H Lymph % (Auto) 1.6 L [place] % (Auto) 5.5 Eos % (Auto) 0.0 Baso % (Auto) 0.1 Neut # (Auto) 17.0 H Lymph # (Auto) 0.3 L [place] # (Auto) 1.0 H Eos # (Auto) 0.0 Baso # (Auto) 0.0 Total Counted 100 Immature Gran % 1.5 Nucleated RBC % 0.0 Immature Gran # 0.28 Segmented Neutrophils 95 H Lymphocytes 2 L Monocytes 2 Eosinophils 1 Nucleated RBCs # 0.00 Platelet Estimate Normal Pappenheimer Bodies Waiter/Waitress [place] Class ABG pH ABG pCO2 ABG pO2 ABG HCO3 ABG Total CO2 ABG O2 Saturation ABG Base Excess FiO2 Sodium Potassium Chloride Carbon Dioxide Anion Gap BUN Creatinine GFR Calculation BUN/Creatinine Ratio Glucose POC Glucose 157 H 173 H Calculated Osmolality Calcium Magnesium B-Natriuretic Peptide Albumin 11/20/16 11/20/16 11/20/16 02:22 02:22 02:22 WBC RBC Hgb Hct MCV MCH MCHC RDW Plt Count MPV Neut % (Auto) Lymph % (Auto) [place] % (Auto) Eos % (Auto) Baso % (Auto) Neut # (Auto) Lymph # (Auto) [place] # (Auto) Eos # (Auto) Baso # (Auto) Total Counted Immature Gran % Nucleated RBC % Immature Gran # Segmented Neutrophils Lymphocytes Monocytes Eosinophils Nucleated RBCs # Platelet Estimate Pappenheimer Bodies ABG pH ABG pCO2 ABG pO2 ABG HCO3 ABG Total CO2 ABG O2 Saturation ABG Base Excess FiO2 Sodium 137 Potassium 4.0 Chloride 98 Carbon Dioxide 21 Anion Gap 22.0 H BUN 146 H D Creatinine 5.90 H GFR Calculation 13 BUN/Creatinine Ratio 24.00 H Glucose 108 H POC Glucose Calculated Osmolality 321.8 H Calcium 8.4 L Magnesium 3.0 H B-Natriuretic Peptide 748 H Albumin 3.2 L 11/20/16 11/20/16 11/20/16 04:00 07:36 11:18 WBC RBC Hgb Hct MCV MCH MCHC RDW Plt Count MPV Neut % (Auto) Lymph % (Auto) [place] % (Auto) Eos % (Auto) Baso % (Auto) Neut # (Auto) Lymph # (Auto) [place] # (Auto) Eos # (Auto) Baso # (Auto) Total Counted Immature Gran % Nucleated RBC % Immature Gran # Segmented Neutrophils Lymphocytes Monocytes Eosinophils Nucleated RBCs # Platelet Estimate Pappenheimer Bodies ABG pH 7.487 H ABG pCO2 27.3 L ABG pO2 54.1 L ABG HCO3 22.9 ABG Total CO2 18.5 L ABG O2 Saturation 88.3 L ABG Base Excess -1.6 FiO2 32.00 Sodium Potassium Chloride Carbon Dioxide Anion Gap BUN Creatinine GFR Calculation BUN/Creatinine Ratio Glucose POC Glucose 79 134 H Calculated Osmolality Calcium Magnesium B-Natriuretic Peptide Albumin
[2016-11-20] MEDS ORDERED: SODIUM POLYSTYRENE SULFATE 15 GM/60 ML BOTTLE PO ONE (16:38)
[2016-11-20] MEDS: SODIUM CHLORIDE 0.9% 1,000 ML IV SCH (16:45)
[2016-11-21] MEDS: methylPREDNISolone SOD SUC 40 MG/1 ML VIAL IV SCH ×3 (01:50→17:53)
[2016-11-21 03:19] LABS: ABG Base Excess -4.8 MMOL/L (-2.5-2.5); ABG HCO3 20.3 MMOL/L (20-26); ABG Oxygen Saturation 85.3 % (95-100); ABG PH 7.466 (7.35-7.45); ABG PO2 49.7 MM HG (80-95); ABG TCO2 16.8 MMOL/L (23-27)
[2016-11-21 05:05] LABS: Basophils % 0.1 % (0.0-0.8); Hematocrit 25.6 VOL% (42.0-52.0); Hemoglobin 8.3 GM/DL (14.0-18.0); Immature Granulocytes % 2.3 %; Lymphocytes # 0.2 10*3/uL (1.4-4.0); Mean Corpuscular HGB Conc 32.4 GM/DL (32-36); Mean Corpuscular Hemoglobin 27 PG (27-34); Mean Corpuscular Volume 82.6 FL (87-102); Mean Platelet Volume 12.1 FL (9.6-12.0); Monocytes % 5.8 % (1.7-12.7); Neutrophils # 16.1 10*3/uL (1.4-7.4); Neutrophils % 90.8 % (38.7-73.9); Platelet Count 193 T/CUMM (130-400); Red Cell Distribution Width 17.8 % (9.3-17.3); White Blood Count 17.7 T/CUMM (4-12)
[2016-11-21 05:45] LABS: Calcium 8.7 MG/DL (8.5-10.1); Magnesium 3.2 MG/DL (1.8-2.4); Osmolality,Calculated 334.1 MOS/KG (273-304); Potassium 4.4 MMOL/L (3.5-5.1)
[2016-11-21 05:52] LABS: Band Neutrophils 1 % (0-10); Hypochromasia 1+; Lymphocytes 3 % (20-55); Microcytosis Slight; Ovalocytes Slight; Platelet Estimate Normal; Segmented Neutrophils 91 % (50-85); Total Cells Counted 100
[2016-11-21] MEDS: ALBUTEROL 2.5 MG/3 ML NEB RESP TX SCH ×4 (07:25→19:38)
--- NOTE | 2016-11-21 08:26 | XRay Report ---
Referring Physician: Santosh Courtney Exam: XR chest 1V portable Date: November 21, 2016 at 3:25 AM Reason: Congestive heart failure Comparison: Chest one view portable November 20, 2016 Findings: The cardiac silhouette is again enlarged, and the patient is status post sternotomy. There are patchy opacities throughout both lungs. This could represent pulmonary edema and/or pneumonia. No pneumothorax is identified. No acute osseous process is seen. Impression: There has been no significant change. PROCEDURE INTERPRETED AT [facility] DEPARTMENT OF RADIOLOGY Final Report Signed by: Dr. Malia Moreno
--- NOTE | 2016-11-21 08:44 | Cardiology Progress Note ---
<Keila Means - Last Filed: 11/21/16 08:22> Assessment and Plan (1) Acute exacerbation of chronic obstructive airways disease Status: Acute Assessment and plan: See plan of care listed below. Current Visit: Yes (2) Chronic kidney disease, stage IV (severe) Status: Chronic Assessment and plan: See plan of care listed below. Current Visit: Yes (3) Diabetes mellitus Status: Chronic Assessment and plan: See plan of care listed below. Current Visit: Yes Qualifiers: Diabetes mellitus type: type 2 Diabetes mellitus complication status: with kidney complications Diabetes mellitus complication detail: with chronic kidney disease Diabetes mellitus circle beveler insulin use: with circle beveler use Chronic kidney disease stage: stage 4 (severe) Qualified Code(s): E11.22 - Type 2 diabetes mellitus with diabetic chronic kidney disease; N18.4 - Chronic kidney disease, stage 4 (severe); Z79.4 - halfway (current) use of insulin (4) Hypertension Status: Chronic Assessment and plan: See plan of care listed below. Current Visit: Yes Qualifiers: Hypertension type: essential hypertension Qualified Code(s): I10 - Essential (primary) hypertension (5) Dyslipidemia Status: Chronic Assessment and plan: See plan of care listed below. Current Visit: No (6) Anemia Status: Chronic Assessment and plan: See plan of care listed below. Current Visit: Yes (7) Paroxysmal atrial fibrillation Status: Chronic Assessment and plan: See plan of care listed below. Current Visit: Yes (8) Status post aortic valve replacement with bioprosthetic valve Status: Chronic Assessment and plan: See plan of care listed below. Current Visit: Yes (9) Acute cholecystitis Status: Acute Assessment and plan: See plan of care listed below. Current Visit: Yes (10) Diastolic dysfunction Status: Acute Assessment and plan: See plan of care listed below. 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 Current Visit: Yes (12) Leukocytosis Status: Acute Assessment and plan: See plan of care listed below. Current Visit: Yes Cardiology - PN: Subj Interval history: [employer] Supervisor: Dr. Franklin PCP: Dr. iMn Summary - Mr. Acosta is a 71-year-old male with a past medical history of diabetes, hypertension, diastolic heart failure, paroxysmal atrial fibrillation (He had been on Coumadin in the past but it was stopped at the [facility] because of noncompliance and difficulty keeping the pro time therapeutic), chronic renal insufficiency, aortic stenosis (now status post tissue aortic valve replacement), history of pulmonary embolism, untreated obstructive sleep apnea and GERD. Patient was admitted to [facility] with recurrent diastolic heart failure. Echo Doppler done September 21, 2016 showed ejection fraction of 60% with grade 3 diastolic dysfunction, moderate dilated left atrium, mitral annular calcification, the aortic tissue valve was sclerotic but open widely. The right ventricle is dilated severe TR PA pressure 65-70 with no effusion. Patient has been anemic throughout this admission. Suspect this is anemia of chronic disease as patient does have history of chronic renal failure. Currently being managed by Dr. Pipo Spaulding. Patient may require hemodialysis at some point. Cardiology was consulted for further assistance in the management of his diastolic heart failure. 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 Patient underwent bronchoscopy last week which revealed amiodarone lung, COPD and scattered areas of mild erosive friable bronchitis. Bronchoscopy specimens are growing a gram-negative rods. Pulmonary is following. Amiodarone has been discontinued. Patient has remained in normal sinus rhythm despite being off amiodarone. His hospital course was also complicated by acute cholecystitis, now status post lap shady. Tolerated procedure well. However, patient remained intubated post procedure and was transferred to CCU. He was extubated last week and is doing well. Post extubated he has been confused. Thought to be multifactoral, ICU delirium as well as high-dose steroids and possibly uremic encephalopathy. NOVEMBER 21, 2016 UPDATE: Patient was seen and examined in the CCU. Minimal improvement. He is resting comfortably in bed. He continues to require oxygen but has been placed on 2 L via nasal cannula. He remains slightly confused this morning. Oriented to self. Chest x-ray revealed no significant change, pulmonary edema versus pneumonia. Denies chest pain, heaviness or tightness. Abdominal incisions are healing well without signs of infection. According to his I's and O's, his weight is down 4 pounds overnight. Urine output is around 20 cc/h. Creatinine continues to worsen and is noted to be 6.8 today. White blood cell count is 17.7 with a left shift noted. Thought to be steroid- induced. Blood cultures reveal no growth at 1 day. H&H is unchanged overnight at 8.3 and 25.6. No overt bleeding noted. Stool was negative 1 for occult blood. Vital signs are stable. Patient has remained in normal sinus rhythm overnight. No overt arrhythmias or ectopy has been noted. At this point, patient is stable from a cardiac standpoint and we have nothing new to add. Will continue current plan of care. ASSESSMENT/PLAN: 1. ACUTE EXACERBATION OF CHRONIC OBSTRUCTIVE AIRWAYS DISEASE - Slowly improving. Management per pulmonary. Continue breathing treatments and steroid therapy. 2. PULMONARY HYPERTENSION - Etiology undetermined. RVSP 79mmHg + RAP. Continue current plan of care. Pulmonary is following. 3. HYPERTENSION - Patient's blood pressure is well controlled. Will continue current plan of care at this time. Will further adjust as needed. Avoiding CANDY inhibitor and ARB due to fear of worsening renal function. Avoiding increasing beta jim dose due to patient's significant lung disease. Will make further adjustments as needed throughout his hospital stay. 4. ANEMIA - Likely anemia of chronic disease as patient has chronic renal disease. Stool was negative for occult blood this admission. No overt bleeding noted. Continue to monitor closely with Daily CBC. Nephrology is following and addressing. 5. PAROXYSMAL ATRIAL FIBRILLATION - Currently in normal sinus rhythm. Amiodarone has been discontinued as this may be contributing to his lung disease. Suspect that he will develop Afib with RVR as we discontinued the Amiodarone but it will take some time for this to wear off. We will adjust and address this as it arises. 6. CHRONIC RENAL FAILURE - Stage IV. This is acute on chronic renal insufficiency. Unfortunately, patient's creatinine continues to worsen, today creatinine is 6.8. Dr. Pipo Spaulding is following. Patient may require dialysis at some point. 7. S/P AVR - Stable status post pericardial aortic valve. 8. HISTORY OF CVA - Remains at high risk for CVA however he has not a candidate for formal anticoagulation given the significance of his anemia. 9. ACUTE CHOLECYSTITIS - Patient is now status post cholecystectomy. Postop day #10. Abdominal incisions are healing well no signs of infection. 10. DIASTOLIC CHF - Compensated. No recurrence of overt diastolic heart failure noted. Weight is down 4 pounds overnight. Diuretics have been discontinued due to rising creatinine. 11. AMIODARONE LUNG - Improving with steriod therapy. Amiodarone has been discontinued. Management per pulmonary. Continue with steroid therapy. 12. LEUKOCYTOSIS - Thought to be steroid-induced. However, chest x-ray today cannot rule out possible infectious process. Currently receiving IV antibiotics. Pulmonary is following. Further plan and addendum to follow per Dr. Franklin. Exam (Progress Note) - Constitutional Vitals: Period Temp Pulse Resp BP Sys/Maloney Pulse Ox Last 24 Hr 97.1 F-97.7 F 73-96 17-29 104-162/40-74 93-100 Exam: General: Appears well with no acute distress. Appears comfortable, confused. Wearing oxygen via nasal canula HEENT: PERRL, normocephalic, atraumatic. Mucous membranes moist. No jaundice noted. Conjunctiva moist and clear, sclerae anicteric Neck: No obvious JVD/HJR, no thyromegaly or lymphadenopathy noted. No carotid bruit appreciated Cardiac: Regular rate and rhythm. II/ HSM heard best at 5ICS left. Lungs: Coarse breath sounds. Requiring oxygen Via nasal canula. Symmetrical chest wall movements. Abdomen: Soft, normal bowel sounds. Abdominal incisions healing well without signs of infection. Extremities: No clubbing, cyanosis noted. No edema noted. Upper extremity pulses 2+. Lower extremity pulses 2+. Capillary refill less than 3 seconds. Neuro: Confused, no tremor noted. Oriented to self. Result/EKG - Labs CBC & BMP: 11/21/16 04:36 11/21/16 04:36 Lab Results: I have reviewed the past 24 hour labs Labs: Laboratory Results - last 24 hr 11/20/16 11/20/16 11/20/16 11:18 16:41 19:34 WBC RBC Hgb Hct MCV MCH MCHC RDW Plt Count MPV Neut % (Auto) Lymph % (Auto) [place] % (Auto) Eos % (Auto) Baso % (Auto) Neut # (Auto) Lymph # (Auto) [place] # (Auto) Eos # (Auto) Baso # (Auto) Total Counted Immature Gran % Nucleated RBC % Immature Gran # Segmented Neutrophils Band Neutrophils Lymphocytes Monocytes Nucleated RBCs # Platelet Estimate Hypochromasia Microcytosis Ovalocytes Morphology Comment ABG pH ABG pCO2 ABG pO2 ABG HCO3 ABG Total CO2 ABG O2 Saturation ABG Base Excess Sodium Potassium Chloride Carbon Dioxide Anion Gap BUN Creatinine GFR Calculation BUN/Creatinine Ratio Glucose POC Glucose 134 H 155 H 149 H Calculated Osmolality Calcium Magnesium B-Natriuretic Peptide 11/21/16 11/21/16 11/21/16 03:05 04:36 04:36 WBC 17.7 H RBC 3.10 L Hgb 8.3 L Hct 25.6 L MCV 82.6 L MCH 27 MCHC 32.4 RDW 17.8 H Plt Count 193 MPV 12.1 H Neut % (Auto) 90.8 H Lymph % (Auto) 1.0 L [place] % (Auto) 5.8 Eos % (Auto) 0.0 Baso % (Auto) 0.1 Neut # (Auto) 16.1 H Lymph # (Auto) 0.2 L [place] # (Auto) 1.0 H Eos # (Auto) 0.0 Baso # (Auto) 0.0 Total Counted 100 Immature Gran % 2.3 Nucleated RBC % 0.0 Immature Gran # 0.40 Segmented Neutrophils 91 H Band Neutrophils 1 Lymphocytes 3 L Monocytes 5 Nucleated RBCs # 0.00 Platelet Estimate Normal Hypochromasia 1+ Microcytosis Slight Ovalocytes Slight Morphology Comment ABG pH 7.466 H ABG pCO2 25.0 L ABG pO2 49.7 L ABG HCO3 20.3 ABG Total CO2 16.8 L ABG O2 Saturation 85.3 L ABG Base Excess -4.8 L Sodium 135 L Potassium 4.4 Chloride 96 L Carbon Dioxide 19 L Anion Gap 24.4 H BUN 165 H Creatinine 6.80 H GFR Calculation 11 BUN/Creatinine Ratio 24.00 H Glucose 296 H POC Glucose Calculated Osmolality 334.1 H Calcium 8.7 Magnesium 3.2 H B-Natriuretic Peptide 11/21/16 11/21/16 04:36 07:05 WBC RBC Hgb Hct MCV MCH MCHC RDW Plt Count MPV Neut % (Auto) Lymph % (Auto) [place] % (Auto) Eos % (Auto) Baso % (Auto) Neut # (Auto) Lymph # (Auto) [place] # (Auto) Eos # (Auto) Baso # (Auto) Total Counted Immature Gran % Nucleated RBC % Immature Gran # Segmented Neutrophils Band Neutrophils Lymphocytes Monocytes Nucleated RBCs # Platelet Estimate Hypochromasia Microcytosis Ovalocytes Morphology Comment ABG pH ABG pCO2 ABG pO2 ABG HCO3 ABG Total CO2 ABG O2 Saturation ABG Base Excess Sodium Potassium Chloride Carbon Dioxide Anion Gap BUN Creatinine GFR Calculation BUN/Creatinine Ratio Glucose POC Glucose 299 H Calculated Osmolality Calcium Magnesium B-Natriuretic Peptide 621 H <Pipo Franklin - Last Filed: 11/21/16 11:46> Exam (Progress Note) - Constitutional Vitals: Period Temp Pulse Resp BP Sys/Maloney Pulse Ox Last 24 Hr 97.1 F-97.8 F 73-83 17-29 104-162/40-74 93-100 Result/EKG - Labs CBC & BMP: 11/21/16 04:36 11/21/16 04:36 Labs: Laboratory Results - last 24 hr 11/20/16 11/20/16 11/20/16 11:18 16:41 19:34 WBC RBC Hgb Hct MCV MCH MCHC RDW Plt Count MPV Neut % (Auto) Lymph % (Auto) [place] % (Auto) Eos % (Auto) Baso % (Auto) Neut # (Auto) Lymph # (Auto) [place] # (Auto) Eos # (Auto) Baso # (Auto) Total Counted Immature Gran % Nucleated RBC % Immature Gran # Segmented Neutrophils Band Neutrophils Lymphocytes Monocytes Nucleated RBCs # Platelet Estimate Hypochromasia Microcytosis Ovalocytes Morphology Comment ABG pH ABG pCO2 ABG pO2 ABG HCO3 ABG Total CO2 ABG O2 Saturation ABG Base Excess Sodium Potassium Chloride Carbon Dioxide Anion Gap BUN Creatinine GFR Calculation BUN/Creatinine Ratio Glucose POC Glucose 134 H 155 H 149 H Calculated Osmolality Calcium Magnesium B-Natriuretic Peptide 11/21/16 11/21/16 11/21/16 03:05 04:36 04:36 WBC 17.7 H RBC 3.10 L Hgb 8.3 L Hct 25.6 L MCV 82.6 L MCH 27 MCHC 32.4 RDW 17.8 H Plt Count 193 MPV 12.1 H Neut % (Auto) 90.8 H Lymph % (Auto) 1.0 L [place] % (Auto) 5.8 Eos % (Auto) 0.0 Baso % (Auto) 0.1 Neut # (Auto) 16.1 H Lymph # (Auto) 0.2 L [place] # (Auto) 1.0 H Eos # (Auto) 0.0 Baso # (Auto) 0.0 Total Counted 100 Immature Gran % 2.3 Nucleated RBC % 0.0 Immature Gran # 0.40 Segmented Neutrophils 91 H Band Neutrophils 1 Lymphocytes 3 L Monocytes 5 Nucleated RBCs # 0.00 Platelet Estimate Normal Hypochromasia 1+ Microcytosis Slight Ovalocytes Slight Morphology Comment ABG pH 7.466 H ABG pCO2 25.0 L ABG pO2 49.7 L ABG HCO3 20.3 ABG Total CO2 16.8 L ABG O2 Saturation 85.3 L ABG Base Excess -4.8 L Sodium 135 L Potassium 4.4 Chloride 96 L Carbon Dioxide 19 L Anion Gap 24.4 H BUN 165 H Creatinine 6.80 H GFR Calculation 11 BUN/Creatinine Ratio 24.00 H Glucose 296 H POC Glucose Calculated Osmolality 334.1 H Calcium 8.7 Magnesium 3.2 H B-Natriuretic Peptide 11/21/16 11/21/16 11/21/16 04:36 07:05 11:38 WBC RBC Hgb Hct MCV MCH MCHC RDW Plt Count MPV Neut % (Auto) Lymph % (Auto) [place] % (Auto) Eos % (Auto) Baso % (Auto) Neut # (Auto) Lymph # (Auto) [place] # (Auto) Eos # (Auto) Baso # (Auto) Total Counted Immature Gran % Nucleated RBC % Immature Gran # Segmented Neutrophils Band Neutrophils Lymphocytes Monocytes Nucleated RBCs # Platelet Estimate Hypochromasia Microcytosis Ovalocytes Morphology Comment ABG pH ABG pCO2 ABG pO2 ABG HCO3 ABG Total CO2 ABG O2 Saturation ABG Base Excess Sodium Potassium Chloride Carbon Dioxide Anion Gap BUN Creatinine GFR Calculation BUN/Creatinine Ratio Glucose POC Glucose 299 H 353 H Calculated Osmolality Calcium Magnesium B-Natriuretic Peptide 621 H
[2016-11-21] MEDS: INSULIN GLARGINE 100 UNIT/ML SUBCUT SCH (09:26)
[2016-11-21] MEDS: INSULIN LISPRO 100 UNIT/ML SUBCUT SCH ×4 (09:28→22:24)
[2016-11-21] MEDS: FAMOTIDINE INJ 40 MG in SODIUM CHLORIDE 0.9% 100 ML IV SCH (09:30)
[2016-11-21] MEDS: METOPROLOL TARTRATE 25 MG TABLET PO SCH (09:40)
[2016-11-21] MEDS: FOLIC ACID 0.4 MG TABLET PO SCH (09:41)
[2016-11-21] MEDS: MUPIROCIN 2% OINT 22 GM TUBE TOP SCH ×2 (09:42→22:10)
[2016-11-21] MEDS: DESITIN 4OZ/NYSTATIN 15 GRAM MIXTURE PASTE TOP SCH ×2 (09:42→22:10)
[2016-11-21] MEDS: MINOXIDIL 2.5 MG TABLET PO SCH ×2 (09:45→22:04)
[2016-11-21] MEDS: NIFEdipine 10 MG CAPSULE PO SCH ×3 (09:48→22:04)
[2016-11-21] MEDS: DOCUSATE SODIUM 100 MG CAPSULE PO SCH ×2 (09:49→22:10)
[2016-11-21] MEDS: ASPIRIN EC 81 MG TABLET PO SCH (09:51)
[2016-11-21] MEDS: ATORVASTATIN 40 MG TABLET PO SCH (09:51)
[2016-11-21] MEDS: ALLOPURINOL 300 MG TABLET PO SCH (09:52)
[2016-11-21] MEDS: CHOLECALCIFEROL 1,000 UNIT TABLET PO SCH (09:54)
--- NOTE | 2016-11-21 10:45 | Pulmonology Progress Note ---
Pulmonary - PN: Subj Interval history: This is a 71-year-old white male. I saw him in pulmonary consultation 2016. My impressions were. 1. Acute congestive heart failure. 2. Aortic valve replacement 2012 3. COPD. Past history tobacco abuse 3.1 Anemia. Folic acid level is low and vitamin B12 level is normal. #4 chronic renal failure 5. Low calcium and low albumin. 6. Insulin-dependent diabetes mellitus with a history of diabetic ketoacidosis 7. Hyperlipidemia 8. History of atrial fib 9. Symptoms suggestive of obstructive sleep apnea 10. Mild pulmonary hypertension. Etiology undetermined. Note elevated left ventricular filling blood pressures on echocardiogram. Previous echocardiogram was obtained when the patient was in congestive heart failure. Obstructive sleep apnea could be a contributory factor. 11. Past history of deep venous thrombophlebitis and pulmonary emboli. No evidence of either found during initial workup this admission 12. See past history 11/01/2016. Chest x-rays are pending. I have ordered the EPA and lateral for today and tomorrow. Patient still has shortness of breath and he complains of chest pain with exertion. To me this chest pain is worrisome for cardiac angina. Pulmonary hypertension can sometimes cause similar pain. Last admission the patient's pulmonary artery pressures were 65-70 mmHg. This echocardiogram was obtained while the patient was in congestive heart failure. I am going to order a repeat echocardiogram for comparison pulmonary artery pressures. Patient's on Procardia XL 60 which is a good medicine for pulmonary hypertension. We could go higher. We could add Revatio if it appears safe from a cardiology standpoint. Occasionally Apresoline works for pulmonary hypertension. Apresoline could be added if needed to help with cardiac output. Patient's H&H is 7.6/23.9. He is low folic acid. His B12 is normal. He also is low on iron. I have started replacement with iron and also folic acid. His vitamin D level is low and vitamin D replacement has been started. I am going to transfuse the patient with a unit of blood today and if he tolerates this well will probably should transfuse another unit tomorrow. This will certainly improve his oxygen carrying capacity. BNP is pending. Note sedimentation rate is 96. Doppler venograms were negative for deep venous thrombophlebitis. Ventilation perfusion lung scan showed no perfusion defects. 11/02/2016. Today's x-ray shows mild residual congestive heart failure. BNP remains elevated at 556. Noted creatinine is 4.60 with a BUN of 52 and this may falsely elevate his BNP. Patient's vitamin D is low and will order replacement. Folic acid is also low. B12 is in the normal range of 438. Posttransfusion H&H is 8.4/26.9. Iron saturation is also low. Iron has not been started. Patient has some persistent nausea. Nares are positive for MRSA. Repeat echocardiogram done 10/29/2016 shows ejection fraction 65% with grade 3 diastolic dysfunction and moderate biatrial enlargement. There is mild atrial regurgitation. Trace of aortic insufficiency. Pulmonary artery pressures are estimated to be 79 mmHg. Patient's on Procardia XL 60 and I will increase this to 120 mg daily. We did consider Revatio if cardiology feels this is safe. Would start with 20 mg every 8 hours. Alternatively we could try Apresoline 25 3 times daily which occasionally helps and may help with the patient's cardiac output. Will ask for Dr. Bueno's comment. 11/03/2016. Today's chest x-ray continues to show mild pulmonary edema. I reviewed a lot of the patient's old x-rays and x-rays done 05/14/2015, 01/05/2016 and 09/26/2016 are investment representative chest x-rays when he is out of congestive heart failure. CBC is stable. The rest of today's lab is pending. Dr. Lydia Ca sleep medicine note has been reviewed and I agree with his plans. Patient's was apparently asleep on the bed. She moves her foot but she never turned over or participate in our conversation today. Santosh Courtney nurse practitioner was present. Patient's had some slight fever related to blood transfusions. I do not see anything so far that looks like amiodarone along. Amiodarone was only recently added. Procardia XL was increased to 60 mg twice a day on 11/02/2016 an attempt to treat the patient's pulmonary hypertension 11/04/2016. This patient had altered mental status and had a normal CT of the head yesterday. I reviewed his medicines from last night. He received [place] 10. 4 mg of morphine and transfers seen. He is a little slow on the mental uptake this morning and I suspect the answer lies in his medicines. This patient has had heart failure that has not quite resolved. His chest x-ray has not been done today. See my note from 11/03/2016. I reviewed the number of old x-rays at his baseline x-ray should looked like x-rays that were done on 2014, 01/05/2016 and on 09/26/2016. The changes he has now are secondary to none resolved pulmonary edema. These are exactly the same changes that he has had before when he has pulmonary edema. The only outlier would be a reaction to amiodarone but he is only been on this for short period of time BNP is elevated at 307. Patient creatinine remains elevated 490 with a BUN of 52 and normal electrolytes. H&H a little bit better at 9.9/31.2. White count 6200 and platelets are 182,000. Will continue to follow his chest x-ray and lab. 11/08/2016. Chest x-ray is essentially unchanged showing increased interstitial markings in all 5 lobes of the lung. Creatinine 6.60 with a BUN of 63. Sodium 134. Potassium 4.7. Magnesium is 3.2. Natruretic peptide is 625. H&H is 9.2/ 28.6. White count is 7078 segs 11 lymphs and 9 mono s. There are no new cultures. Patient is much more alert and oriented today. He says he is breathing much better. Notes from Dr. Valorie Mascorro and Dr. Eliud Brito's have been reviewed 11/09/2016. Dr. Valorie Mascorro and I have discussed the case. We both are suspicious that we are dealing with amiodarone alone. Amiodarone was started this admission and the reconciliation by the master data analyst implied that the patient was already on the medicine. The patient is a terrible historian. His is asleep on the cot next to him and is not much help. He says he has been on amiodarone for years. Will stop amiodarone. I am patient change in the patient's prednisone to Solu-Medrol 40 IV push every 8 hours and will monitor his chest x-ray is O2 sats. The patient is on Plaquenil. He has no idea why he takes this medicine. Creatinine is now 7.10 with a BUN of 76. Sodium is 132. Potassium 4.9. White count is 10,886 segs 6.6 lymphs and 5.5 monocytes. There are no eosinophils. H&H is 8.9 with 27.5. 11/10/2016. On 11/09/2016 Dr. Valorie Mascorro and I decided to stop the patient's amiodarone and I started him on a moderate dose of steroids. He had had 5 lobe interstitial infiltrates that did not resolve it is suspected. Today's x-ray is better by close to 50% allowing for the fact that this x-rays a little more penetrated than his previous x-rays. Patient says his breathing is more comfortable. He is lying flat in bed. Patient also has a abnormal ultrasound of the gallbladder. I will check room air ABGs and complete pulmonary function test with pre-and postbronchodilator spirometry to get an approximate baseline of where this patient is so we have some parameters to follow down the road. Patient is possibly for placement of a dialysis line today. There are no new positive cultures. Creatinine is 6.90 with a BUN of 73. Sodium is 132 with a potassium of 5.1. White count is 8700 with 89 segs. H&H is 8.8/27.2 and platelets 260,000. Nitrated peptide is been elevated. 11/11/2016. On 11/10/2016 Dr. Avinash gray and I reviewed the case. Patient had infected gallbladder. Recommendations were to proceed with surgery. Patient's status was likely to go downhill if we did not. Patient is now after surgery. He had a laparoscopic procedure in the gallbladder was not inflamed. He is on the ventilator and he will be moved to the intensive care unit. His chest x- ray today is stable. 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 We will continue his low-dose steroid treatment. ABGs are pending. Dr. Gray has discussed this with the patient's family. 11/11/2016. 1500. Patient's postop and stable. His chest x-ray stable. He has very good oxygenation. Early tomorrow morning will start weaning procedures with CPAP 4 hour to an hour and a half he does well will go with the T-tube for approximately an hour and then check his ABGs and decide if he is strong enough to come off the ventilator. 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 Follow-up x-rays lab and ABGs have been ordered per 11/12/2016. Earlier today the patient did not do well with weaning high having back on CPAP now and he is doing well and I will go to a T-tube and will see how he does from there. His chest x-ray is stable he still has bilateral interstitial disease and with alveolar filling that I think it is related to amiodarone lung. ABGs are stable. Natruretic peptide is fallen to 242. Sodium is 132. Potassium is 3.5. Creatinine is 6.60 with a BUN of 89. White count is 12,700 with 91% segs H&H is 8.7/29.9 and 9 platelets are 266,000. Patient has done well postop. 11/13/2016. This patient did not do well on T-tube trials today. He is doing fine on CPAP. His chest x-ray shows 5 lobe increased interstitial markings with some alveolar filling. All of this is improved over last 3 or 4 days. There is no congestive heart failure. 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 ABGs on FiO2 40% shows a pH of 7.37, PCO2 of 37.4, PO2 of 150 and a bicarb of 21.8. Sodium is 132 potassium is 5.0 creatinine is 5.20 with a BUN of 83. H&H is 9.0/26.8. Red blood cell indices are low. Platelets are 259, 000. White count is 9500 with 86 segs. Natruretic peptide remains elevated 344. Dr. Andres Spaulding and I have discussed the case and coordinated our care 11/15/2016. Today's chest x-ray shows 5 lobe interstitial markings and alveolar filling which are gradually improving. 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 Patient's had thick tenacious sputum for the been hard to mobilize. Today he was evaluated with fiberoptic bronchoscopy. Specimens were sent for cytology, bacterial, fungal and AFB studies. MRSA has been isolated from both nares. Otherwise patient has no positive cultures. Patient's on stage VII of his weaning protocol. He still has trouble tolerating T-tube. This will be repeated tomorrow morning beginning at 5:00 and after 2 hours will check ABGs and hopefully he will be close to extubation. His ABGs on mechanical ventilation FiO2 of 40% shows a pH 7.458, PCO2 of 39, PO2 of 159 a bicarb of 27.7. Sodium is low at 133 potassium is 4.5 white count is 12,100 H&H is 8.7/ 25.9 and platelets of 234,000. This patient's H&H is low he needs oxygen carrying capacity in order to extubate him. I am going to transfuse him with 2 units of packed red blood cells today. 11/16/2016. Today's chest x-ray is stable. Patient's ABGs are stable. He has done very well on the T-tube. He will be extubated and follow-up ABGs will be obtained. There are no positive cultures. Sodium is dropped to 129 with a potassium of 4.3. Creatinine is 3.80 with a BUN of 99. Glucoses remain elevated. H&H posttransfusion is 10.5/30.4. White blood cell count is 19,700 with 90 segs. Platelets are 227,000. Bronchoscopy results are negative so far. Cytologies are pending. 11/17/2016. Patient was extubated on 11/16/2016 and since that time he is done well. His chest x-ray shows 5 lobe alveolar and interstitial changes related to his amiodarone lung. We need to continue his steroids and this will probably continue to improve. This patient has had pulmonary edema along the way so will have to be careful with his volume status. ABGs this morning on FiO2 28% show a pH 7.51, PCO2 34, PO2 of 77 and bicarb 28.1 sodium is increased to 133. Potassium 4.0. Creatinine is 4.10 with a BUN of 110. White count remains elevated 22,800 with 86 segs. Bronchoscopy specimens are growing a gram -negative heidi which has not been identified yet. These specimens were obtained on the morning of 11/15/2016 patient's previously had MRSA isolated from his nares 11/18/2016. This 71-year-old white male has underlying heart disease. He has been in and out of pulmonary edema in the past. He had an echocardiogram done that showed an ejection fraction of 65% with grade 3 diastolic dysfunction, moderate by atrial enlargement. There was mild mitral regurgitation and he had a prosthetic aortic valve. There was a trace of aortic valve insufficiency and his pulmonary artery pressures were elevated at 79 mmHg. Patient was in pulmonary edema at the time the study was done. 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 He is on steroids for this. With steroids his chest x-rays improved significantly leaving 5 lobe scattered areas of alveolar filling with increased interstitial markings. This was all interrupted by acute cholecystitis that required laparoscopic surgery by Dr. Da Silva to look. Patient was on mechanical ventilation after surgery and he was slow to wean. He was extubated 11/16/2016 and he is done well until today. Today's x-ray shows increased interstitial edema and I suspect this is related to volume overload. I have given the patient dose of Lasix. I have cut his IV fluids. The rate of IV fluids was recently raised. Patient has underlying renal failure which is being followed and treated by Dr. Pipo Spaulding. Creatinine is 4.6 with a BUN of 124. White count is elevated 22,000 with 90 segs. H&H is 9.3/27.4 after blood transfusion on 11/16/2016. Platelets of 256,000. Sodium is 133. Potassium is 4.2. ABGs on FiO2 28% show a pH of 7.469, PCO2 29.6 and PO2 of 85 with a bicarb of 23.2. Along the way the patient has had some confusion and this was thought to be related the pain medicines which were cut back. He now appears to have psychosis. He is being treated with Geodon. The patient did not bring any psychotropic medicines with him from home. He was taking [place] 10/325 every 4 hours as needed for pain. I think the biggest thing we need to watch for at the present time is onset of congestive heart failure. 11/21/2016. Today's chest x-ray shows cardiomegaly. There is a 5 lobe alveolar interstitial infiltrate compatible with the previously noted amiodarone lung. This is not improved in the last few days. ABGs are noted. The patient's O2 sats are better than this. Labs noted. Creatinine remains elevated 6.80 with a BUN of 165. Dr. Spaulding is managed in the renal aspect of this case. White count was elevated at 17,700 with 91% segs. Bronchial alveolar lavage from 2016 grew Klebsiella pneumoniae. Patient's on Geodon Physical exam. Vital signs. See below. Psychiatric. Appears to be confused. He is not agitated Face is symmetrical. Lips and tongue are normal Neck. Symmetrical no meningismus. Lymphatics. No submandibular cervical supraclavicular or epitrochlear adenopathy. Chest is fairly clear. Patient's breathing comfortably lying flat in bed Heart lateral PMI Abdomen. Nontender. Positive bowel sounds Lower extremities. Skin no evidence of chronic venous stasis. No edema. Neurologic. Cranial nerves are intact. Long track motor functions intact. Gait was not tested. The remainder the physical exam is noncontributory. Plan. 11/01/2016. See my note above. See numbers 1 through 9 below 1. Diuresis. Watch BMP. 2. Replace folic acid 3. Replace iron 4. Blood transfusion 5. Deep venous thrombophlebitis prevention protocol 6. Replace vitamin D 7. Follow-up chest x-ray #8. Repeat echocardiogram. Consider increase of Procardia. Consider Revatio say from a cardiology standpoint. An outlier for pulmonary hypertension would be Apresoline. 9. 11/02/2016. See today's note above. Increase Procardia XL 60 to twice daily . Last Dr. Moseley his opinion concerning Revatio and/or Apresoline 10. 11/03/2016. See today's note above. . 11/04/2016. See today's note above. Considering cutting back significantly on this patient pain medicines. I suspect these are the cause of his altered mental status. We will follow-up his chest x-ray and lab. Dr. Radha mcadams will see the patient this week 12. 11/08/2016. See today's note above. . 11/09/2016. See today's note above. DC amiodarone. Change prednisone to Solu-Medrol. Dr. Mascorro and I have reviewed the case and coordinated our care . 11/10/2016. Off amiodarone. Chest x-ray better. Abnormal gallbladder studies dialysis line possible. Baseline ABGs and complete pulmonary function test with pre-and postbronchodilator spirometry. Follow-up chest x-ray 15. 11/11/2016. See today's note above. 16. 11/12/2016. See today's note above 17. 11/13/2016. See today's note above. Early tomorrow will try T-tube again and we will try to safely extubate this patient. 18. 11/15/2016. See today's note above. Patient was evaluated with fiberoptic bronchoscopy. Transfused with 2 units of blood. Stage III weaning protocol. T -tube in the morning. . 11/16/2016. See today's note above. Bronchoscopy specimens negative. Cytology pending. Extubated. Follow-up ABGs. Follow-up chest x-ray ABGs and lab in the morning. . 11/17/2016. See today's note above. Extubated 11/16/2016. Ventilation therapy. Follow-up chest x-ray and ABGs for a few more days. . 11/18/2016. See my note for today above. Congestive heart failure. Amiodarone lung. Psychosis. Chronic renal failure. . 11/21/2016. See today's note above. Pulmonary status is stable but not improved. Exam (Progress Note) - Constitutional Vitals: Period Temp Pulse Resp BP Sys/Maloney Pulse Ox Last 24 Hr 97.1 F-97.8 F 73-83 17-29 104-162/40-74 93-100 Results - Labs CBC & BMP: 11/21/16 04:36 11/21/16 04:36
[2016-11-21] MEDS: cefTAZidime 500 MG in SODIUM CHLORIDE 0.9% 100 ML IV SCH (11:12)
--- NOTE | 2016-11-21 11:47 | Nephrology Progress Note ---
Nephrology - PN: Subj Interval history: He is awake but remains confused. Renal function has worsened over the weekend. He denies shortness of breath Exam (PN)-Nephrology - Vital Signs Vital signs: Period Temp Pulse Resp BP Sys/Maloney Pulse Ox Last 24 Hr 97.1 F-97.8 F 73-83 17-29 104-162/40-74 93-100 Exam: Gen.: Awake. Oriented 1 ENT: Pupils equal round reactive to light. EOMs intact. Mucous membranes moist. Neck: Supple. No JVD or bruit. Cardiovascular: Regular rate and rhythm. No murmur rub or gallop Lungs: Clear Abdomen: Soft. Nontender. Positive bowel sounds. No organomegaly Extremities: No edema - Lab 11/21/16 04:36 11/21/16 04:36 Most recent lab results ABG pH 7.466 (7.35-7.45) H 11/21/16 03:05 ABG pCO2 25.0 MM HG (35-48) L 11/21/16 03:05 ABG pO2 49.7 MM HG (80-95) L 11/21/16 03:05 ABG HCO3 20.3 MMOL/L (20-26) 11/21/16 03:05 ABG O2 Saturation 85.3 % (95-100) L 11/21/16 03:05 Calcium 8.7 MG/DL (8.5-10.1) 11/21/16 04:36 Phosphorus 5.1 MG/DL (2.5-4.9) H 11/15/16 05:30 Magnesium 3.2 MG/DL (1.8-2.4) H 11/21/16 04:36 Assessment and Plan (1) Chronic kidney disease, stage IV (severe) Status: Chronic Assessment and plan: 71-year-old man admitted with: * CRF stage IV. Baseline creatinine upper threes * ARF on CRF. Renal function has declined over the weekend. Urine output is decreased. I have discussed his condition in detail with his . She agrees to initiate dialysis. I have spoken with Dr. Gray. Tunneled catheter will be placed tomorrow a.m. * Cholecystitis. Status post laparoscopic cholecystectomy * Diastolic CHF. 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 Posttransfusion Current Visit: Yes (2) Diastolic CHF Status: Acute Current Visit: Yes Qualifiers: Congestive heart failure chronicity: acute on chronic Qualified Code(s): I50.33 - Acute on chronic diastolic (congestive) heart failure (3) Pulmonary edema Status: Acute Current Visit: Yes (4) Chronic obstructive pulmonary disease Status: Chronic Current Visit: Yes Qualifiers: COPD type: unspecified COPD Qualified Code(s): J44.9 - Chronic obstructive pulmonary disease, unspecified (5) Diabetes mellitus Status: Chronic Current Visit: Yes Qualifiers: Diabetes mellitus type: type 2 Diabetes mellitus complication status: with kidney complications Diabetes mellitus complication detail: with chronic kidney disease Diabetes mellitus longterm insulin use: with longterm use Chronic kidney disease stage: stage 4 (severe) Qualified Code(s): E11.22 - Type 2 diabetes mellitus with diabetic chronic kidney disease; N18.4 - Chronic kidney disease, stage 4 (severe); Z79.4 - assisted (current) use of insulin (6) Hypertension Status: Chronic Current Visit: Yes Qualifiers: Hypertension type: essential hypertension Qualified Code(s): I10 - Essential (primary) hypertension
--- NOTE | 2016-11-21 13:50 | Infectious Disease Progress ---
Assessment and Plan (1) Pneumonia Status: Acute Assessment and plan: Vent associated pneumonia with Klebsiella cultured. Blood cultures negative and is afebrile. Leukocytosis improving. Recommendations: We will de-escalate from ceftazidime to cefazolin. Treated with cefazolin for 7 days to complete 10 days total of antibiotic therapy. Current Visit: Yes (2) Acute cholecystitis Status: Acute Assessment and plan: Status post cholecystectomy, surgical wounds look good no evidence of infection. Current Visit: Yes (3) Altered mental status Status: Acute Current Visit: Yes (4) Amiodarone pulmonary toxicity Status: Acute Current Visit: Yes (5) Diastolic CHF Status: Acute Current Visit: Yes Qualifiers: Congestive heart failure chronicity: acute on chronic Qualified Code(s): I50.33 - Acute on chronic diastolic (congestive) heart failure (6) Leukocytosis Status: Acute Assessment and plan: May have been from steroids, blood cultures negative and patient has been afebrile and overall looks better. Will continue to monitor white blood cell count. Current Visit: Yes (7) Pulmonary edema Status: Acute Current Visit: Yes (8) Chronic kidney disease, stage IV (severe) Status: Chronic Current Visit: Yes (9) Diabetes mellitus Status: Chronic Current Visit: Yes Qualifiers: Diabetes mellitus type: type 2 Diabetes mellitus complication status: with kidney complications Diabetes mellitus complication detail: with chronic kidney disease Diabetes mellitus custodial insulin use: with shirt maker use Chronic kidney disease stage: stage 4 (severe) Qualified Code(s): E11.22 - Type 2 diabetes mellitus with diabetic chronic kidney disease; N18.4 - Chronic kidney disease, stage 4 (severe); Z79.4 - senior care (current) use of insulin (10) Hypertension Status: Chronic Current Visit: Yes Qualifiers: Hypertension type: essential hypertension Qualified Code(s): I10 - Essential (primary) hypertension (11) Paroxysmal atrial fibrillation Status: Chronic Current Visit: Yes (12) Status post aortic valve replacement with bioprosthetic valve Status: Chronic Current Visit: Yes Infectious Disease - PN: Subj Interval history: No new seizures per nurse, uneventful weekend. The patient denied complaints he nods his head in response to questions he does not speak. He has been afebrile. Infectious Disease Exam (PN) - Constitutional Vitals: Temp Pulse Resp BP Pulse Ox 97.8 F 74 20 143/60 99 11/21/16 07:00 11/21/16 10:00 11/21/16 10:00 11/21/16 10:00 11/21/16 10:00 General appearance: other (Mechanically ventilated.) Exam: General appearance: no acute distress - Eye Eye exam: Present: EOMI. no icterus Pupils: Present: TAMIA - ENT ENT exam: no oral exudates - Respiratory Respiratory exam: vesicular BS, no crepitations or wheezes - Cardiovascular Cardiovascular exam: regular rate and rhythm, no murmurs - GI/Abdominal GI/Abdominal exam: normal bowel sounds, soft, non-tender, no organomegaly or mass - Extremities Exam Extremities exam: Mild to moderate bilateral lower extremity edema - Skin Skin exam: no rash Results - Labs CBC & BMP: 11/21/16 04:36 11/21/16 04:36 Lab Results: I have reviewed the past 24 hour labs (Blood cultures negative at day 3)
--- NOTE | 2016-11-21 14:43 | Hospitalist Progress Note ---
Assessment and Plan (1) ESRD (end stage renal disease) Status: Acute Assessment and plan: 1)S/Plap cholecystectomy POD 8- surgery has signed off. to encourage oral intake. 2)amio lung and COPD- nebs, steroids solumedrol at 40IV q8 started November 09. discuss tapering with Dr Brizuela. 3)afib- on toprol now. 4)ESRD- to start HD tomorrow. tunneled cath in am 5)encephalopathy- combination of critical illnesses and uremia likely 6)dispo- to LTAC after dialysis tomorrow. 7)ID- on cefazolin now for 7 days to complete 10 day course 8)HTN- on multiple meds, adequate control 9)DM- on SSI and lantus 53 U daily. glucose mostly ok, intake variable, watch for now. I'm afraid to induce hypoglycemia if I increase the lantus with inconsistent intake. 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 Chronic kidney disease stage: stage 4 (severe) Qualified Code(s): E11.22 - Type 2 diabetes mellitus with diabetic chronic kidney disease; N18.4 - Chronic kidney disease, stage 4 (severe); 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 He came initially with CHF exacerbation and more recently has had lap cholecysctectomy. His renal failure has progressed and he is now to begin dialysis tomorrow. Dr Spaulding wants him to do that here before transfer to LTAC. Cardiology continues to follow him. He has amiodarone pulmonary toxicity and has been changed to toprol for control of his afib. Exam - Constitutional Vitals: Period Temp Pulse Resp BP Sys/Maloney Pulse Ox Last 24 Hr 97.1 F-97.8 F 67-83 17-29 104-162/40-74 93-100 General appearance: no acute distress, morbidly obese - Head Head exam: Present: normocephalic, atraumatic - Eye Eye exam: Present: EOMI. Absent: scleral icterus - Respiratory Respiratory exam: Present: rales (at bases, good air movement) - Cardiovascular Cardiovascular exam: Present: irregular rhythm - GI/Abdominal GI/Abdominal exam: Present: normal bowel sounds, soft. Absent: tenderness - Extremities Exam Extremities exam: Absent: edema - Neurological Exam Neurological exam: Present: alert (did not speak to answer my questions- this is his baseline per nursing.) - Skin Skin exam: Present: warm, dry Results - Labs CBC & BMP: 11/21/16 04:36 11/21/16 04:36 Lab Results: I have reviewed the past 24 hour labs
[2016-11-21] MEDS ORDERED: ceFAZolin 2,000 MG in PREMIX 1 EACH IV ONE (15:00)
[2016-11-21] MEDS: SODIUM CHLORIDE 0.9% 1,000 ML IV SCH (15:00)
[2016-11-21] MEDS: METOPROLOL SUCCINATE XL 25 MG TABLET PO SCH (22:05)
[2016-11-22] MEDS: methylPREDNISolone SOD SUC 40 MG/1 ML VIAL IV SCH ×2 (00:35→11:55)
[2016-11-22] MEDS: ALBUTEROL 2.5 MG/3 ML NEB RESP TX SCH ×2 (01:06→07:05)
[2016-11-22 04:16] LABS: ABG Base Excess -5.7 MMOL/L (-2.5-2.5); ABG HCO3 16.7 MMOL/L (20-26); ABG Oxygen Saturation 96.5 % (95-100); ABG PCO2 23.3 MM HG (35-48); ABG PH 7.474 (7.35-7.45); ABG PO2 84.3 MM HG (80-95); ABG TCO2 17.4 MMOL/L (23-27)
[2016-11-22 05:26] LABS: Basophils % 0.1 % (0.0-0.8); Hematocrit 25.7 VOL% (42.0-52.0); Hemoglobin 8.5 GM/DL (14.0-18.0); Immature Granulocytes % 1.8 %; Immature Granulocytes Absolute 0.38 #; Lymphocytes # 0.2 10*3/uL (1.4-4.0); Lymphocytes % 1.1 % (21.2-54.2); Mean Corpuscular HGB Conc 33.1 GM/DL (32-36); Mean Corpuscular Hemoglobin 27 PG (27-34); Mean Corpuscular Volume 81.8 FL (87-102); Monocytes # 0.9 10*3/uL (0.11-0.8); Monocytes % 4.1 % (1.7-12.7); Neutrophils # 19.2 10*3/uL (1.4-7.4); Neutrophils % 92.9 % (38.7-73.9); Platelet Count 238 T/CUMM (130-400); Red Blood Count 3.14 MC/CUMM (3.8-5.5); Red Cell Distribution Width 18.1 % (9.3-17.3); White Blood Count 20.7 T/CUMM (4-12)
[2016-11-22 06:00] LABS: Lymphocytes 1 % (20-55); Platelet Estimate Adequate; Segmented Neutrophils 97 % (50-85); Total Cells Counted 100
[2016-11-22 06:01] LABS: Calcium 8.4 MG/DL (8.5-10.1); Hypochromasia Slight; Magnesium 3.3 MG/DL (1.8-2.4); Microcytosis 1+; Osmolality,Calculated 331.4 MOS/KG (273-304)
[2016-11-22 06:02] LABS: Ovalocytes Few
--- NOTE | 2016-11-22 06:55 | XRay Report ---
Portable chest Date: 11/22/2016 Clinical history: CHF, cough Comparison: 11/21/2016 Technique: Portable AP sitting chest Findings: Motion artifact. Stable cardiomegaly with prior median sternotomy. No significant change in the diffuse parenchymal findings in the lungs. Ill-defined densities persist. Stable mediastinum and osseous structures. Impression: No significant change in the appearance of the chest when compared to the previous exam. PROCEDURE INTERPRETED AT [facility] DEPARTMENT OF RADIOLOGY Final Report Signed by: Dr. Brittany Vincent
[2016-11-22] MEDS ORDERED: ceFAZolin 2,000 MG in PREMIX 1 EACH IV ONE ×2 (07:00→08:00)
[2016-11-22] MEDS ORDERED: SODIUM CHLORIDE 0.9% 250 ML IV SCH (08:30)
[2016-11-22] MEDS ORDERED: PROPOFOL 200 MG/20 ML VIAL IV ONE (08:56)
[2016-11-22] MEDS ORDERED: METOPROLOL TARTRATE 5 MG/5 ML VIAL IV ONE (08:56)
--- NOTE | 2016-11-22 09:33 | Operative Note ---
Date of procedure: 11/22/16 Pre-op diagnosis: Renal failure with need for hemodialysis access Post-op diagnosis: same Procedure: Preoperative diagnosis Renal failure with need for hemodialysis access Postoperative diagnosis Same Procedures performed 1. Right internal jugular vein tunneled hemodialysis catheter placement 2. Ultrasound guidance and interpretation of images 3. Fluoroscopic guidance and interpretation of images Findings The right internal jugular vein is compressible and it was accessed for hemodialysis access. The tip of the catheter was place in the right atrium. Patient tolerated procedure well and both ports worked well. Complications none apparent Specimen None Indications Renal failure with need for access for hemodialysis Description of procedure The patient was taken to the operating room and transferred to the operating table in the supine position. Pressure points are padded and SCDs placed lower extremity. Monitored anesthesia was administered and the neck was prepped and draped sterile fashion using chloride same. Preoperative antibiotics were administered and a timeout was performed. Ultrasound was used to identify the internal jugular vein and local anesthetic was infiltrated around the vein. Local anesthetic was also administered around the planned tract site down to the anterior chest wall below the clavicle. The vein was accessed on first stick and nonpulsatile venous blood was obtained. A wire was placed using Seldinger technique. An incision was made alongside the wire using a long blade scalpel and a separate incision below the clavicle was made with an 11 blade scalpel. A 19 cm catheter was tunneled from the chest incision into the neck wound and a dilator peel-away sheath was placed over the wire. The wire and dilator was removed and the catheter was placed to the peel-away sheath. The catheter was secured in place in the right atrium on fluoroscopic images. Both returned blood easily and were flushed with heparin. The catheter was secured in place using 3-0 nylon sutures and the neck incision was closed with 3 -0 nylon suture. Sterile dressings were applied. The patient was awakened from anesthesia and transferred to recovery. Postoperative plan Begin hemodialysis and obtained chest x-ray postop Implants: 19cm tunneled hemodialysis catheter Anesthesia: MAC, local Surgeon / Physician: Avinash Gray Estimated blood loss: minimal Specimens: none sent Condition: stable Disposition: PACU Results - Labs CBC & BMP: 11/22/16 04:33 11/22/16 04:33 Discharge Plan - Discharge Medications No Action Omeprazole [Prilosec] 20 mg PO BID W/MEALS Allopurinol [Zyloprim] 150 mg PO DAILY #30 mg Sodium Bicarb Tab 325 mg PO BID Docusate Sodium Cap [Colace Cap] 100 mg PO BID #60 capsule HYDROcodone/ACETAMIN 10-325 [Fingal 10-325] 1 tablet PO Q4H PRN #30 tablet PRN Reason: Pain Moderate (4-7) Metoprolol Tartrate Tab [Lopressor Tab] 25 mg PO BID #60 tablet Furosemide Tab [Lasix Tab] 80 mg PO DAILY #30 tablet - Follow Up or Referral - Forms/Instructions
--- NOTE | 2016-11-22 09:40 | Anesthesia Post-Op ---
Anesthesia Post OP - Post Ansesthetic Evaluation Patient seen in post op: Yes Resp: within normal limits CV: within normal limits Mental: within normal limits Temp: within normal limits [id number]: within normal limits Nausea and Vomiting: within normal limits Pain: within normal limits
[2016-11-22] MEDS: INSULIN LISPRO 100 UNIT/ML SUBCUT SCH ×2 (10:12→13:20)
--- NOTE | 2016-11-22 10:29 | XRay Report ---
Portable chest Date: 11/22/2016 Clinical history: Dialysis catheter Comparison: 11/22/2016 Technique: Portable AP sitting chest Findings: Stable cardiomegaly with prior median sternotomy. Insertion of right IJ venous dialysis catheter with tip at junction of SVC and right atrium. No pneumothorax. Persistent diffuse parenchymal findings in the lungs with ill-defined densities. Stable mediastinum and osseous structures. Impression: Satisfactory insertion of right IJ venous dialysis catheter with no evidence of pneumothorax. Stable pulmonary edema with atelectasis and chronic scarring in patient with prior median sternotomy. PROCEDURE INTERPRETED AT [facility] DEPARTMENT OF RADIOLOGY Final Report Signed by: Dr. Brittany Vincent
[2016-11-22 10:30] VITALS: BP 146/60
--- NOTE | 2016-11-22 10:44 | Pulmonology Progress Note ---
Pulmonary - PN: Subj Interval history: This is a 71-year-old white male. I saw him in pulmonary consultation 2016. My impressions were. 1. Acute congestive heart failure. 2. Aortic valve replacement 2012 3. COPD. Past history tobacco abuse 3.1 Anemia. Folic acid level is low and vitamin B12 level is normal. #4 chronic renal failure 5. Low calcium and low albumin. 6. Insulin-dependent diabetes mellitus with a history of diabetic ketoacidosis 7. Hyperlipidemia 8. History of atrial fib 9. Symptoms suggestive of obstructive sleep apnea 10. Mild pulmonary hypertension. Etiology undetermined. Note elevated left ventricular filling blood pressures on echocardiogram. Previous echocardiogram was obtained when the patient was in congestive heart failure. Obstructive sleep apnea could be a contributory factor. 11. Past history of deep venous thrombophlebitis and pulmonary emboli. No evidence of either found during initial workup this admission 12. See past history 11/01/2016. Chest x-rays are pending. I have ordered the EPA and lateral for today and tomorrow. Patient still has shortness of breath and he complains of chest pain with exertion. To me this chest pain is worrisome for cardiac angina. Pulmonary hypertension can sometimes cause similar pain. Last admission the patient's pulmonary artery pressures were 65-70 mmHg. This echocardiogram was obtained while the patient was in congestive heart failure. I am going to order a repeat echocardiogram for comparison pulmonary artery pressures. Patient's on Procardia XL 60 which is a good medicine for pulmonary hypertension. We could go higher. We could add Revatio if it appears safe from a cardiology standpoint. Occasionally Apresoline works for pulmonary hypertension. Apresoline could be added if needed to help with cardiac output. Patient's H&H is 7.6/23.9. He is low folic acid. His B12 is normal. He also is low on iron. I have started replacement with iron and also folic acid. His vitamin D level is low and vitamin D replacement has been started. I am going to transfuse the patient with a unit of blood today and if he tolerates this well will probably should transfuse another unit tomorrow. This will certainly improve his oxygen carrying capacity. BNP is pending. Note sedimentation rate is 96. Doppler venograms were negative for deep venous thrombophlebitis. Ventilation perfusion lung scan showed no perfusion defects. 11/02/2016. Today's x-ray shows mild residual congestive heart failure. BNP remains elevated at 556. Noted creatinine is 4.60 with a BUN of 52 and this may falsely elevate his BNP. Patient's vitamin D is low and will order replacement. Folic acid is also low. B12 is in the normal range of 438. Posttransfusion H&H is 8.4/26.9. Iron saturation is also low. Iron has not been started. Patient has some persistent nausea. Nares are positive for MRSA. Repeat echocardiogram done 10/29/2016 shows ejection fraction 65% with grade 3 diastolic dysfunction and moderate biatrial enlargement. There is mild atrial regurgitation. Trace of aortic insufficiency. Pulmonary artery pressures are estimated to be 79 mmHg. Patient's on Procardia XL 60 and I will increase this to 120 mg daily. We did consider Revatio if cardiology feels this is safe. Would start with 20 mg every 8 hours. Alternatively we could try Apresoline 25 3 times daily which occasionally helps and may help with the patient's cardiac output. Will ask for Dr. Bueno's comment. 11/03/2016. Today's chest x-ray continues to show mild pulmonary edema. 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 CBC is stable. The rest of today's lab is pending. Dr. Lydia Ca sleep medicine note has been reviewed and I agree with his plans. Patient's was apparently asleep on the bed. She moves her foot but she never turned over or participate in our conversation today. Santosh Courtney nurse practitioner was present. Patient's had some slight fever related to blood transfusions. I do not see anything so far that looks like amiodarone along. Amiodarone was only recently added. Procardia XL was increased to 60 mg twice a day on 11/02/2016 an attempt to treat the patient's pulmonary hypertension 11/04/2016. This patient had altered mental status and had a normal CT of the head yesterday. I reviewed his medicines from last night. He received Bynum 10. 4 mg of morphine and transfers seen. He is a little slow on the mental uptake this morning and I suspect the answer lies in his medicines. This patient has had heart failure that has not quite resolved. His chest x-ray has not been done today. See my note from 11/03/2016. I reviewed the number of old x-rays at his baseline x-ray should looked like x-rays that were done on 2014, 01/05/2016 and on 09/26/2016. The changes he has now are secondary to none resolved pulmonary edema. These are exactly the same changes that he has had before when he has pulmonary edema. The only outlier would be a reaction to amiodarone but he is only been on this for short period of time BNP is elevated at 307. Patient creatinine remains elevated 490 with a BUN of 52 and normal electrolytes. H&H a little bit better at 9.9/31.2. White count 6200 and platelets are 182,000. Will continue to follow his chest x-ray and lab. 11/08/2016. Chest x-ray is essentially unchanged showing increased interstitial markings in all 5 lobes of the lung. Creatinine 6.60 with a BUN of 63. Sodium 134. Potassium 4.7. Magnesium is 3.2. Natruretic peptide is 625. H&H is 9.2/ 28.6. White count is 7078 segs 11 lymphs and 9 mono s. There are no new cultures. Patient is much more alert and oriented today. He says he is breathing much better. Notes from Dr. Valorie Mascorro and Dr. Eliud Brito's have been reviewed 11/09/2016. Dr. Valorie Mascorro and I have discussed the case. We both are suspicious that we are dealing with amiodarone alone. Amiodarone was started this admission and the reconciliation by the cash on delivery clerk implied that the patient was already on the medicine. The patient is a terrible historian. His is asleep on the cot next to him and is not much help. He says he has been on amiodarone for years. Will stop amiodarone. I am patient change in the patient's prednisone to Solu-Medrol 40 IV push every 8 hours and will monitor his chest x-ray is O2 sats. The patient is on Plaquenil. He has no idea why he takes this medicine. Creatinine is now 7.10 with a BUN of 76. Sodium is 132. Potassium 4.9. White count is 10,886 segs 6.6 lymphs and 5.5 monocytes. There are no eosinophils. H&H is 8.9 with 27.5. 11/10/2016. On 11/09/2016 Dr. Valorie Mascorro and I decided to stop the patient's amiodarone and I started him on a moderate dose of steroids. He had had 5 lobe interstitial infiltrates that did not resolve it is suspected. Today's x-ray is better by close to 50% allowing for the fact that this x-rays a little more penetrated than his previous x-rays. Patient says his breathing is more comfortable. He is lying flat in bed. Patient also has a abnormal ultrasound of the gallbladder. I will check room air ABGs and complete pulmonary function test with pre-and postbronchodilator spirometry to get an approximate baseline of where this patient is so we have some parameters to follow down the road. Patient is possibly for placement of a dialysis line today. There are no new positive cultures. Creatinine is 6.90 with a BUN of 73. Sodium is 132 with a potassium of 5.1. White count is 8700 with 89 segs. H&H is 8.8/27.2 and platelets 260,000. Nitrated peptide is been elevated. 11/11/2016. On 11/10/2016 Dr. Avinash gray and I reviewed the case. Patient had infected gallbladder. Recommendations were to proceed with surgery. Patient's status was likely to go downhill if we did not. Patient is now after surgery. He had a laparoscopic procedure in the gallbladder was not inflamed. He is on the ventilator and he will be moved to the intensive care unit. His chest x- ray today is stable. 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 We will continue his low-dose steroid treatment. ABGs are pending. Dr. Gray has discussed this with the patient's family. 11/11/2016. 1500. Patient's postop and stable. His chest x-ray stable. He has very good oxygenation. Early tomorrow morning will start weaning procedures with CPAP 4 hour to an hour and a half he does well will go with the T-tube for approximately an hour and then check his ABGs and decide if he is strong enough to come off the ventilator. 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 Follow-up x-rays lab and ABGs have been ordered per 11/12/2016. Earlier today the patient did not do well with weaning high having back on CPAP now and he is doing well and I will go to a T-tube and will see how he does from there. His chest x-ray is stable he still has bilateral interstitial disease and with alveolar filling that I think it is related to amiodarone lung. ABGs are stable. Natruretic peptide is fallen to 242. Sodium is 132. Potassium is 3.5. Creatinine is 6.60 with a BUN of 89. White count is 12,700 with 91% segs H&H is 8.7/29.9 and 9 platelets are 266,000. Patient has done well postop. 11/13/2016. This patient did not do well on T-tube trials today. He is doing fine on CPAP. His chest x-ray shows 5 lobe increased interstitial markings with some alveolar filling. All of this is improved over last 3 or 4 days. There is no congestive heart failure. 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 ABGs on FiO2 40% shows a pH of 7.37, PCO2 of 37.4, PO2 of 150 and a bicarb of 21.8. Sodium is 132 potassium is 5.0 creatinine is 5.20 with a BUN of 83. H&H is 9.0/26.8. Red blood cell indices are low. Platelets are 259, 000. White count is 9500 with 86 segs. Natruretic peptide remains elevated 344. Dr. Andres Spaulding and I have discussed the case and coordinated our care 11/15/2016. Today's chest x-ray shows 5 lobe interstitial markings and alveolar filling which are gradually improving. 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 Patient's had thick tenacious sputum for the been hard to mobilize. Today he was evaluated with fiberoptic bronchoscopy. Specimens were sent for cytology, bacterial, fungal and AFB studies. MRSA has been isolated from both nares. Otherwise patient has no positive cultures. Patient's on stage VII of his weaning protocol. He still has trouble tolerating T-tube. This will be repeated tomorrow morning beginning at 5:00 and after 2 hours will check ABGs and hopefully he will be close to extubation. His ABGs on mechanical ventilation FiO2 of 40% shows a pH 7.458, PCO2 of 39, PO2 of 159 a bicarb of 27.7. Sodium is low at 133 potassium is 4.5 white count is 12,100 H&H is 8.7/ 25.9 and platelets of 234,000. This patient's H&H is low he needs oxygen carrying capacity in order to extubate him. I am going to transfuse him with 2 units of packed red blood cells today. 11/16/2016. Today's chest x-ray is stable. Patient's ABGs are stable. He has done very well on the T-tube. He will be extubated and follow-up ABGs will be obtained. There are no positive cultures. Sodium is dropped to 129 with a potassium of 4.3. Creatinine is 3.80 with a BUN of 99. Glucoses remain elevated. H&H posttransfusion is 10.5/30.4. White blood cell count is 19,700 with 90 segs. Platelets are 227,000. Bronchoscopy results are negative so far. Cytologies are pending. 11/17/2016. Patient was extubated on 11/16/2016 and since that time he is done well. His chest x-ray shows 5 lobe alveolar and interstitial changes related to his amiodarone lung. We need to continue his steroids and this will probably continue to improve. This patient has had pulmonary edema along the way so will have to be careful with his volume status. ABGs this morning on FiO2 28% show a pH 7.51, PCO2 34, PO2 of 77 and bicarb 28.1 sodium is increased to 133. Potassium 4.0. Creatinine is 4.10 with a BUN of 110. White count remains elevated 22,800 with 86 segs. Bronchoscopy specimens are growing a gram -negative heidi which has not been identified yet. These specimens were obtained on the morning of 11/15/2016 patient's previously had MRSA isolated from his nares 11/18/2016. This 71-year-old white male has underlying heart disease. He has been in and out of pulmonary edema in the past. He had an echocardiogram done that showed an ejection fraction of 65% with grade 3 diastolic dysfunction, moderate by atrial enlargement. There was mild mitral regurgitation and he had a prosthetic aortic valve. There was a trace of aortic valve insufficiency and his pulmonary artery pressures were elevated at 79 mmHg. Patient was in pulmonary edema at the time the study was done. 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 He is on steroids for this. With steroids his chest x-rays improved significantly leaving 5 lobe scattered areas of alveolar filling with increased interstitial markings. This was all interrupted by acute cholecystitis that required laparoscopic surgery by Dr. Da Silva to look. Patient was on mechanical ventilation after surgery and he was slow to wean. He was extubated 11/16/2016 and he is done well until today. Today's x-ray shows increased interstitial edema and I suspect this is related to volume overload. I have given the patient dose of Lasix. I have cut his IV fluids. The rate of IV fluids was recently raised. Patient has underlying renal failure which is being followed and treated by Dr. Pipo Spaulding. Creatinine is 4.6 with a BUN of 124. White count is elevated 22,000 with 90 segs. H&H is 9.3/27.4 after blood transfusion on 11/16/2016. Platelets of 256,000. Sodium is 133. Potassium is 4.2. ABGs on FiO2 28% show a pH of 7.469, PCO2 29.6 and PO2 of 85 with a bicarb of 23.2. Along the way the patient has had some confusion and this was thought to be related the pain medicines which were cut back. He now appears to have psychosis. He is being treated with Geodon. The patient did not bring any psychotropic medicines with him from home. He was taking Bynum 10/325 every 4 hours as needed for pain. I think the biggest thing we need to watch for at the present time is onset of congestive heart failure. 11/21/2016. Today's chest x-ray shows cardiomegaly. There is a 5 lobe alveolar interstitial infiltrate compatible with the previously noted amiodarone lung. This is not improved in the last few days. ABGs are noted. The patient's O2 sats are better than this. Labs noted. Creatinine remains elevated 6.80 with a BUN of 165. Dr. Spaulding is managed in the renal aspect of this case. White count was elevated at 17,700 with 91% segs. Bronchial alveolar lavage from 2016 grew Klebsiella pneumoniae. Patient's on Geodon 11/22/2016. Understand this patient is going to be dialyzed today. His chest x- ray is unchanged. There is 5 lobe interstitial edema and alveolar filling compatible with his diagnosis of amiodarone lung. ABGs on FiO2 28% show a pH of 7.47, PCO2 of 23, PO2 of 84.3 and a bicarb of 16.7. Sodium is 133. Potassium is 5.0. Creatinine is 7.70 with a BUN of 181. White count is 20,700 with 93 segs. H&H is low but stable at 8.5/25.7. Keep in mind this patient has a number of other problems including arteriosclerotic heart disease. Recent history of congestive heart failure. Renal failure. Hyperlipidemia. COPD. Anemia. Possible very mild pulmonary hypertension. History of atrial fib. He is recently appeared to be extremely confused and has required Geodon Physical exam. Vital signs. See below. Psychiatric. Appears to be confused. He is not agitated Face is symmetrical. Lips and tongue are normal Neck. Symmetrical no meningismus. Lymphatics. No submandibular cervical supraclavicular or epitrochlear adenopathy. Chest is fairly clear. Patient's breathing comfortably lying flat in bed Heart lateral PMI Abdomen. Nontender. Positive bowel sounds Lower extremities. Skin no evidence of chronic venous stasis. No edema. Neurologic. Cranial nerves are intact. Long track motor functions intact. Gait was not tested. The remainder the physical exam is noncontributory. Plan. 11/01/2016. See my note above. See numbers 1 through 9 below 1. Diuresis. Watch BMP. 2. Replace folic acid 3. Replace iron 4. Blood transfusion 5. Deep venous thrombophlebitis prevention protocol 6. Replace vitamin D 7. Follow-up chest x-ray #8. Repeat echocardiogram. Consider increase of Procardia. Consider Revatio say from a cardiology standpoint. An outlier for pulmonary hypertension would be Apresoline. . 11/02/2016. See today's note above. Increase Procardia XL 60 to twice daily . Last Dr. Moseley his opinion concerning Revatio and/or Apresoline . 11/03/2016. See today's note above. . 11/04/2016. See today's note above. Considering cutting back significantly on this patient pain medicines. I suspect these are the cause of his altered mental status. We will follow-up his chest x-ray and lab. Dr. Radha mcadams will see the patient this week 12. 11/08/2016. See today's note above. 11/09/2016. See today's note above. DC amiodarone. Change prednisone to Solu-Medrol. Dr. Mascorro and I have reviewed the case and coordinated our care 14. 11/10/2016. Off amiodarone. Chest x-ray better. Abnormal gallbladder studies dialysis line possible. Baseline ABGs and complete pulmonary function test with pre-and postbronchodilator spirometry. Follow-up chest x-ray 15. 11/11/2016. See today's note above. 16. 11/12/2016. See today's note above 17. 11/13/2016. See today's note above. Early tomorrow will try T-tube again and we will try to safely extubate this patient. 18. 11/15/2016. See today's note above. Patient was evaluated with fiberoptic bronchoscopy. Transfused with 2 units of blood. Stage III weaning protocol. T -tube in the morning. 19. 11/16/2016. See today's note above. Bronchoscopy specimens negative. Cytology pending. Extubated. Follow-up ABGs. Follow-up chest x-ray ABGs and lab in the morning. . 11/17/2016. See today's note above. Extubated 11/16/2016. Ventilation therapy. Follow-up chest x-ray and ABGs for a few more days. . 11/18/2016. See my note for today above. Congestive heart failure. Amiodarone lung. Psychosis. Chronic renal failure. . 11/21/2016. See today's note above. Pulmonary status is stable but not improved. 23. 11/22/2016. See today's note above. For dialysis today. If patient goes to long-term acute care at [facility] I will asked that either Dr. Marco Martinez be consulted to follow this patient appear Exam (Progress Note) - Constitutional Vitals: Period Temp Pulse Resp BP Sys/Maloney Pulse Ox Last 24 Hr 97.2 F-98.4 F 64-91 16-26 105-168/47-85 92-100 Results - Labs CBC & BMP: 11/22/16 04:33 11/22/16 04:33
[2016-11-22] MEDS: INSULIN GLARGINE 100 UNIT/ML SUBCUT SCH (11:16)
[2016-11-22] MEDS: FAMOTIDINE INJ 40 MG in SODIUM CHLORIDE 0.9% 100 ML IV SCH (11:16)
--- NOTE | 2016-11-22 11:22 | Discharge Summary ---
<René Lutz - Last Filed: 11/22/16 11:16> Hospital Course - Hospital Course Hospital Course: This is a 71-year-old chronically ill male that presented to the ED at [facility] on October 28, 2016 for the evaluation of shortness of breath. The patient has a very extensive medical history significant for hyperlipidemia, hypertension, deep vein thrombosis, insulin-dependent diabetes mellitus, gouty arthritis, chronic obstructive pulmonary disease, and chronic renal insufficiency. Patient has a surgical history significant for aortic valve replacement (2012), tonsillectomy, adenoidectomy, and bilateral total knee replacement. The patient reported the onset of the presenting symptoms 3 days prior to presentation. He reported that his symptoms were relieved when he lies in bed and that lying flat does not worsen the shortness of breath however he does experience significant dyspnea on exertion. At the time of presentation, the patient denied a nonproductive cough and fever, however reported intermittent chest pain which was not necessarily associated with the cough or shortness of breath. The patient was subsequently admitted to the hospitalist service for continuation of care. The patient was initially transferred to a general medical surgical floor however the patient started to experience some cardiac issues and was subsequently transferred to the critical care unit on October 29, 2016. A cardiology consult was requested the patient was seen and evaluated. The patient started to experience some renal insufficiency and a nephrology consult was requested. Nephrology has followed the patient the entire clinical encounter. His renal function has failed to improve. On November 22, 2016, a Jerzy catheter was placed for the initiation of dialysis. His first HD session was today. During the clinical encounter, the patient developed acute cholecystitis and subsequently underwent cholecystectomy on November 11, 2016. The patient was electively intubated and remained intubated until November 16, 2016. His stay was also complicated by ventilator associated pneumonia. Infectious Disease was consulted, recommends a ten day course of cefazolin. His condition has remained stable. He has not required any further mechanical ventilation. His vital signs are stable. He has not experienced any significant overnight events. After consulting with each involved area of care, today we feel that he is indeed appropriate for discharge to long-term acute care at [facility]. Discharge Plan - Discharge Data Disposition: Disch/Xfer to [facility] - Discharge Medications New Acetaminophen Tab [Tylenol Tab] 325 mg PO Q4H PRN tablet PRN Reason: fever, headache/body aches Albuterol Neb [Proventil Neb] 2.5 mg RESP TX RT Q6H Albuterol Neb [Proventil Neb] 2.5 mg RESP TX RT Q6H PRN PRN Reason: Shortness Of Breath/Wheezing Aspirin EC Tab 81 mg PO DAILY tablet Cholecalciferol [Vitamin D3] 2,000 unit PO DAILY tablet Clorazepate [Tranxene] 3.75 mg PO Q8H PRN tablet PRN Reason: Anxiety Colchicine [Colcrys] 0.3 mg PO QOTHER DAY tablet Dextrose 50% [D50] 25 gm IV PRN PRN vial PRN Reason: Hypoglycemia with IV access Folic Acid Tab 0.8 mg PO DAILY tablet Glucagon 1 mg IM PRN PRN vial PRN Reason: Hypoglycemia w/o IV access HYDROcodone/ACETAMIN 5-325 [[place] 5-325] 1 tablet PO Q6H PRN tablet PRN Reason: Pain Moderate (4-7) Insulin Glargine [Lantus] 53 unit SUBCUT DAILY unit Magnesium Citrate [Citroma] 150 ml PO DAILY PRN bottle PRN Reason: Constipation Metoprolol Succinate Xl [Toprol Xl] 25 mg PO BID tablet Minoxidil [Loniten] 10 mg PO BID tablet Mupirocin 2% Oint [Bactroban 2% Oint] 1 applic TOP BID applic Ondansetron Inj [Zofran Inj] 8 mg IV Q6H PRN vial PRN Reason: Nausea/Vomiting Ziprasidone Inj [Geodon Inj] 10 mg IM Q6H PRN vial PRN Reason: Agitation ceFAZolin [Ancef] 1,000 mg IV Q24H vial cloNIDine TAB [Catapres Tab] 0.2 mg PO BID tablet hydrALAZINE TAB [Apresoline Tab] 100 mg PO TID tablet Alum/Mag/Simeth Max Str Liquid [Mylanta Max Strength Liquid] 30 ml PO Q4H PRN PRN Reason: Dyspepsia Atorvastatin [Lipitor] 40 mg PO DAILY tablet Famotidine Inj [Pepcid Inj] 40 mg IV Q24H vial Hydroxychloroquine [Plaquenil] 200 mg PO QOTHER DAY tablet Lactulose Liquid [Chronulac] 20 gm PO Q6H PRN PRN Reason: Constipation NIFEdipine CAP [Procardia] 30 mg PO TID capsule cefTAZidime [Fortaz] 500 mg IV Q12H vial methylPREDNISolone SOD SUC INJ [SoluMEDROL] 40 mg IV Q8H vial Continue Allopurinol [Zyloprim] 150 mg PO DAILY #30 mg Docusate Sodium Cap [Colace Cap] 100 mg PO BID #60 capsule Discontinued Omeprazole [Prilosec] 20 mg PO BID W/MEALS Sodium Bicarb Tab 325 mg PO BID HYDROcodone/ACETAMIN 10-325 [[place] 10-325] 1 tablet PO Q4H PRN #30 tablet PRN Reason: Pain Moderate (4-7) Metoprolol Tartrate Tab [Lopressor Tab] 25 mg PO BID #60 tablet Furosemide Tab [Lasix Tab] 80 mg PO DAILY #30 tablet - Follow Up or Referral - Forms/Instructions Exam - Constitutional Vitals: Period Temp Pulse Resp BP Sys/Maloney Pulse Ox Last 24 Hr 97.2 F-98.4 F 67-91 16-26 110-168/47-85 92-100 Discharge Results Procedures and tests throughout hospitalization: Pending Orders 11/06/16 15:00 Occult Blood, Stool Routine 11/15/16 08:45 AFB Culture/Smears Stat Fungal Culture w/ Prep Stat 11/18/16 12:24 Blood Culture Stat 11/22/16 12:31 Hepatitis B Surface Antibody* Stat Hepatitis B Surface Antigen* Stat Labs on day of discharge: Labs from last 24 hours 11/22/16 11/22/16 11/22/16 07:45 04:33 04:33 WBC 20.7 H RBC 3.14 L Hgb 8.5 L Hct 25.7 L MCV 81.8 L MCH 27 MCHC 33.1 RDW 18.1 H Plt Count 238 D MPV 12.0 Neut % (Auto) 92.9 H Lymph % (Auto) 1.1 L Mag[place] % (Auto) 4.1 Eos % (Auto) 0.0 Baso % (Auto) 0.1 Neut # (Auto) 19.2 H Lymph # (Auto) 0.2 L [place] # (Auto) 0.9 H Eos # (Auto) 0.0 Baso # (Auto) 0.0 Total Counted 100 Immature Gran % 1.8 Nucleated RBC % 0.0 Immature Gran # 0.38 Segmented Neutrophils 97 H Lymphocytes 1 L Monocytes 2 Nucleated RBCs # 0.00 Platelet Estimate Adequate Hypochromasia Slight Microcytosis 1+ Ovalocytes Few ABG pH ABG pCO2 ABG pO2 ABG HCO3 ABG Total CO2 ABG O2 Saturation ABG Base Excess FiO2 Sodium 133 L Potassium 5.0 Chloride 94 L Carbon Dioxide 17 L Anion Gap 27.0 H BUN 181 H D Creatinine 7.70 H GFR Calculation 9 BUN/Creatinine Ratio 23.00 H Glucose 205 H POC Glucose 294 H Calculated Osmolality 331.4 H Calcium 8.4 L Magnesium 3.3 H 11/22/16 11/21/16 11/21/16 03:51 20:21 16:17 WBC RBC Hgb Hct MCV MCH MCHC RDW Plt Count MPV Neut % (Auto) Lymph % (Auto) [place] % (Auto) Eos % (Auto) Baso % (Auto) Neut # (Auto) Lymph # (Auto) [place] # (Auto) Eos # (Auto) Baso # (Auto) Total Counted Immature Gran % Nucleated RBC % Immature Gran # Segmented Neutrophils Lymphocytes Monocytes Nucleated RBCs # Platelet Estimate Hypochromasia Microcytosis Ovalocytes ABG pH 7.474 H ABG pCO2 23.3 L ABG pO2 84.3 ABG HCO3 16.7 L ABG Total CO2 17.4 L ABG O2 Saturation 96.5 ABG Base Excess -5.7 L FiO2 28.00 Sodium Potassium Chloride Carbon Dioxide Anion Gap BUN Creatinine GFR Calculation BUN/Creatinine Ratio Glucose POC Glucose 203 H 238 H Calculated Osmolality Calcium Magnesium Preliminary micro results at discharge 11/18/16 12:24 Blood Culture - Preliminary Blood No growth at 3 days 11/15/16 08:45 Fungal Culture - Preliminary Bronchial Alexey Lavage No Fungus isolated at 1 week 11/18/16 12:24 Blood Culture - Preliminary Blood No growth at 3 days DS: Provider Date of admission: 10/29/16 00:10 Primary care physician: . No PCP Attending physician on admission: Gelacio Meyer MD Consults: 10/29/16 14:50 Consult to Physician [CONS] Routine Comment: chest pain Consulting Provider: Tony Esparza Consult to Specialist Group: Cardiology When should Consulting Provider be notified: Now 10/30/16 07:09 Consult to Physician [CONS] Routine Comment: Consulting Provider: Pipo Spaulding 10/30/16 11:47 Consult to Physician [CONS] Routine Comment: Consulting Provider: Blair Brizuela Consult to Specialist Group: Pulmonology When should Consulting Provider be notified: In am Person Notified: ADINA Date Notified: 10/31/16 Time Notified: 08:15 10/30/16 14:28 Consult to Sleep Center [CONS] Routine Reason for Sleep Center: Sleep Center Physician Consult Comment: needs sleep study; saw Dr. Ca in September, didn't keep sleep study appt 11/01/16 14:38 Consult to Physician [CONS] Routine Comment: SUSPECTED NOBLE. HAD OP APPT. BUT DID NOT GO. Consulting Provider: Genesis Ca 11/01/16 14:55 Consult to Pharmacy [CONS] Routine Reason for Pharmacy Consult: Adjust Meds Renal Funct 11/01/16 15:15 Consult to Sleep Center [CONS] Routine Reason for Sleep Center: Sleep Center Physician 11/04/16 10:45 Consult to Occupational Therapy [CONS] Routine Reason for Occupational Therapy: Evaluate and Treat Consult to Physical Therapy [CONS] Routine Reason for Physical Therapy: Evaluate and Treat 11/10/16 13:47 Consult to Physician [CONS] Routine Comment: nausea, possible cholecystitis Consulting Provider: Avinash Irby Person Notified: june at dr irby's office Date Notified: 11/10/16 Time Notified: 14:15 11/13/16 08:55 Consult to Dietitian [CONS] Routine Reason for Dietitian: TF-Initiate/Manage 11/18/16 10:49 Consult to Physician [CONS] Routine Comment: mental status changes Consulting Provider: Simeon Lackey Person Notified: voicemail @ clinic Date Notified: 11/18/16 Time Notified: 11:20 11/18/16 11:05 Consult to Physician [CONS] Routine Comment: Consulting Provider: Maia Ochoa Person Notified: dr monahan here & aware Date Notified: 11/18/16 Time Notified: 11:10 11/21/16 11:07 Consult to Case Mgmt/Social Srvs [CONS] Routine Reason for Case Mgmt/Social Srvs: LTAC Consult Comment: [facility] Discharging clinician: René Lutz CNP <Yolis Costello - Last Filed: 11/22/16 13:25> Hospital Course - Time spent with patient Time with patient DS: Greater than 30 minutes (50) Diagnosis - Discharge Diagnosis (1) Chronic obstructive pulmonary disease Status: Chronic (2) Diabetes mellitus Status: Chronic (3) Renal insufficiency Status: Chronic (4) Amiodarone pulmonary toxicity Status: Chronic (5) Acute encephalopathy Status: Acute (6) ESRD (end stage renal disease) Status: Chronic (7) History of CVA (cerebrovascular accident) Status: Chronic (8) Ventilator-acquired pneumonia Status: Resolved Discharge Plan - Discharge Data Condition at Discharge: Stable Discharge Diet: diabetic diet, heart healthy, low salt diet Activity: as per physical therapy Hygiene: no restrictions Weight Bearing at Discharge: weight bear as tolerated Contact your physician if you experience:: fever over 101, Shortness of breath Exam - Constitutional General appearance: over weight - Head Head exam: Present: normocephalic, atraumatic - Eye Eye exam: Present: EOMI Pupils: Present: TAMIA - ENT ENT exam: Present: normal exam - Neck Neck exam: Present: normal inspection - Respiratory Respiratory exam: Present: clear to auscultation bilaterally - Cardiovascular Cardiovascular exam: Present: regular rate and rhythm - GI/Abdominal GI/Abdominal exam: Present: normal bowel sounds, soft. Absent: tenderness, rebound - Extremities Exam Extremities exam: Present: normal inspection - Back Exam Back exam: Present: normal inspection - Neurological Exam Neurological exam: Present: other (patient is alert but not answering questions) - Psychiatric Psychiatric exam: Absent: agitated, anxious - Skin Skin exam: Present: warm, intact
[2016-11-22] MEDS: COLCHICINE 0.6 MG TABLET PO SCH (11:51)
[2016-11-22] MEDS: NIFEdipine 10 MG CAPSULE PO SCH ×2 (11:52→15:48)
[2016-11-22] MEDS: HYDROXYCHLOROQUINE 200 MG TABLET PO SCH (11:53)
[2016-11-22] MEDS: METOPROLOL SUCCINATE XL 25 MG TABLET PO SCH (11:53)
[2016-11-22] MEDS: FOLIC ACID 0.4 MG TABLET PO SCH (11:53)
[2016-11-22] MEDS: MINOXIDIL 2.5 MG TABLET PO SCH (11:53)
[2016-11-22] MEDS: CHOLECALCIFEROL 1,000 UNIT TABLET PO SCH (11:53)
[2016-11-22] MEDS: DOCUSATE SODIUM 100 MG CAPSULE PO SCH (11:54)
[2016-11-22] MEDS: ATORVASTATIN 40 MG TABLET PO SCH (11:54)
[2016-11-22] MEDS: ALLOPURINOL 300 MG TABLET PO SCH (11:54)
[2016-11-22] MEDS: ASPIRIN EC 81 MG TABLET PO SCH (11:54)
[2016-11-22] MEDS: MUPIROCIN 2% OINT 22 GM TUBE TOP SCH (11:57)
[2016-11-22] MEDS: DESITIN 4OZ/NYSTATIN 15 GRAM MIXTURE PASTE TOP SCH (11:57)
[2016-11-22 13:12] LABS: Hepatitis B Surface Ab Result Negative; Hepatitis B Surface Ag Quant < 0.10 Index; Hepatitis B Surface Ag Result Negative (Negative)
[2016-11-22] MEDS: SODIUM CHLORIDE 0.9% 1,000 ML IV SCH (15:43)
--- NOTE | 2016-11-22 15:56 | Infectious Disease Progress ---
Assessment and Plan (1) Pneumonia Status: Acute Assessment and plan: Vent associated pneumonia with Klebsiella cultured. Blood cultures negative and is afebrile. Leukocytosis slightly worsened again today. Recommendations: Continue cefazolin; 6 more days of therapy to go Current Visit: Yes (2) Acute cholecystitis Status: Acute Assessment and plan: Status post cholecystectomy, surgical wounds look good no evidence of infection. Current Visit: Yes (3) Altered mental status Status: Acute Current Visit: Yes (4) Amiodarone pulmonary toxicity Status: Chronic Current Visit: Yes (5) Diastolic CHF Status: Chronic Current Visit: Yes Qualifiers: Congestive heart failure chronicity: acute on chronic Qualified Code(s): I50.33 - Acute on chronic diastolic (congestive) heart failure (6) Leukocytosis Status: Acute Assessment and plan: May have been from steroids, blood cultures negative and patient has been afebrile and overall looks better. Will continue to monitor white blood cell count. Current Visit: Yes (7) Pulmonary edema Status: Acute Current Visit: Yes (8) Chronic kidney disease, stage IV (severe) Status: Chronic Current Visit: Yes (9) Diabetes mellitus Status: Chronic Current Visit: Yes Qualifiers: Diabetes mellitus type: type 2 Diabetes mellitus complication status: with kidney complications Diabetes mellitus complication detail: with chronic kidney disease Diabetes mellitus long distance operator insulin use: with fpc use Chronic kidney disease stage: stage 4 (severe) Qualified Code(s): E11.22 - Type 2 diabetes mellitus with diabetic chronic kidney disease; N18.4 - Chronic kidney disease, stage 4 (severe); Z79.4 - terminal operator (current) use of insulin (10) Hypertension Status: Chronic Current Visit: Yes Qualifiers: Hypertension type: essential hypertension Qualified Code(s): I10 - Essential (primary) hypertension (11) Paroxysmal atrial fibrillation Status: Chronic Current Visit: Yes (12) Status post aortic valve replacement with bioprosthetic valve Status: Chronic Current Visit: Yes Infectious Disease - PN: Subj Interval history: Patient had a dialysis catheter placed and had his first dialysis session today. He has been afebrile. Drowsy when I saw him this afternoon having just returned from dialysis. Infectious Disease Exam (PN) - Constitutional Vitals: Temp Pulse Resp BP Pulse Ox 97.2 F L 84 20 146/60 99 11/22/16 10:25 11/22/16 10:25 11/22/16 10:25 11/22/16 10:25 11/22/16 10:25 General appearance: over weight Exam: General appearance: Very drowsy - Eye Eye exam: Present: EOMI. no icterus Pupils: Present: TAMIA - Respiratory Respiratory exam: vesicular BS, no crepitations or wheezes - Cardiovascular Cardiovascular exam: regular rate and rhythm, no murmurs - GI/Abdominal GI/Abdominal exam: normal bowel sounds, soft, non-tender, no organomegaly or mass - Extremities Exam Extremities exam: Moderate bilateral lower extremity edema - Skin Skin exam: no rash Results - Labs CBC & BMP: 11/22/16 04:33 11/22/16 04:33 Lab Results: I have reviewed the past 24 hour labs
--- NOTE | 2016-11-23 01:05 | Nephrology Progress Note ---
Nephrology - PN: Subj Interval history: This is a late entry note for 11/22/2016 He was seen during dialysis. Arrangements were made yesterday for dialysis catheter placement today. His catheter is functioning well during dialysis. Blood pressure is stable. He is awake but remains confused. Exam (PN)-Nephrology - Vital Signs Vital signs: Period Temp Pulse Resp BP Sys/Maloney Pulse Ox Last 24 Hr 97.2 F-98.4 F 76-91 16-26 125-168/54-85 95-100 Exam: Gen.: Alert. Oriented to person and place ENT: Pupils equal round reactive to light. EOMs intact. Neck: Supple. No JVD or bruit. Cardiovascular: Regular rate and rhythm. No murmur rub or gallop Lungs: Clear Abdomen: Soft. Nontender. Positive bowel sounds. No organomegaly Extremities: Trace edema - Lab 11/22/16 04:33 11/22/16 04:33 Most recent lab results ABG pH 7.474 (7.35-7.45) H 11/22/16 03:51 ABG pCO2 23.3 MM HG (35-48) L 11/22/16 03:51 ABG pO2 84.3 MM HG (80-95) 11/22/16 03:51 ABG HCO3 16.7 MMOL/L (20-26) L 11/22/16 03:51 ABG O2 Saturation 96.5 % (95-100) 11/22/16 03:51 Calcium 8.4 MG/DL (8.5-10.1) L 11/22/16 04:33 Phosphorus 5.1 MG/DL (2.5-4.9) H 11/15/16 05:30 Magnesium 3.3 MG/DL (1.8-2.4) H 11/22/16 04:33 Assessment and Plan (1) Chronic kidney disease, stage IV (severe) Status: Chronic Assessment and plan: 71-year-old man admitted with: * CRF stage IV. Baseline creatinine upper threes * ARF on CRF. He is stable during his first HD session today. This will be repeated tomorrow * Cholecystitis. Status post laparoscopic cholecystectomy * Diastolic CHF. 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 Posttransfusion He is awaiting transfer to [facility] (2) Diastolic CHF Status: Chronic Qualifiers: Congestive heart failure chronicity: acute on chronic Qualified Code(s): I50.33 - Acute on chronic diastolic (congestive) heart failure (3) Pulmonary edema Status: Acute (4) Chronic obstructive pulmonary disease Status: Chronic Qualifiers: COPD type: unspecified COPD Qualified Code(s): J44.9 - Chronic obstructive pulmonary disease, unspecified (5) Diabetes mellitus Status: Chronic Qualifiers: Diabetes mellitus type: type 2 Diabetes mellitus complication status: with kidney complications Diabetes mellitus complication detail: with chronic kidney disease Diabetes mellitus prison insulin use: with terminal press operator use Chronic kidney disease stage: stage 4 (severe) Qualified Code(s): E11.22 - Type 2 diabetes mellitus with diabetic chronic kidney disease; N18.4 - Chronic kidney disease, stage 4 (severe); Z79.4 - [facility] (current) use of insulin (6) Hypertension Status: Chronic Qualifiers: Hypertension type: essential hypertension Qualified Code(s): I10 - Essential (primary) hypertension
--- NOTE | 2016-11-23 15:55 | Interventional Radiology Rpt ---
Exam: IR fluoro guide cv cath Date: 11/22/2016 Indication: Dialysis catheter placement Comparison: None Findings: 3 fluoroscopic images were obtained with 3.8 seconds fluoroscopy time. Fluoroscopy provided to Dr. Gray. A right IJ catheter has been placed with the distal tip in the proximal right atrium. Sternotomy wires are present. No obvious pneumothorax Impression: 1. Right IJ dialysis catheter placed on a single image there appears to be slight defect at the apex curve of the tube not otherwise clarified PROCEDURE INTERPRETED AT [facility] DEPARTMENT OF RADIOLOGY Final Report Signed by: Dr. Blair Leavitt
== END 2016-11-22 16:15 | DRG 264 ==
LOC: EDBD → EDUNIT# → N.ED 22:13 → SUATTDRO 10-29 00:10 → N.EDINP 10-29 00:10 → N.2E 10-29 00:36 → N.CC 10-29 14:45 → N.TELES 10-30 14:22 → N.CC 11-11 10:57 → N.2E 11-21 15:48
PROVIDERS: ADMIT Student in an Organized Health Care Education/Training Program; ATTEND Internal Medicine
PROC: LAPCHOL (2016-11-11 08:50)